=== PATIENT | female | born 1950 | race Caucasian/White ===

== ENCOUNTER 2021-03-10 12:40 | Outpatient (REF) | payer MEDICARE, SELFPAY ==
[2021-03-10 13:40] LABS: MANUAL DIFF FLAG NO
[2021-03-10 13:43] LABS: Basophils Percent Auto 0.5 % (0-2); Eosinophils Absolute Auto 0.2 X10*3/uL (0.0-0.4); Eosinophils Percent Auto 2.4 % (0-4); Hematocrit 42.6 % (37.0-47.0); Hemoglobin 13.1 g/dl (12.0-16.0); Imm Gran Abs Auto 0.04 X10*3/uL (0.00-0.03); Imm Gran Pct Auto 0.5 % (0.0-0.4); Lymphocytes Absolute Auto 2.9 X10*3/uL (1.2-4.9); Lymphocytes Percent Auto 37.6 % (20-40); Mean Corpuscular HGB Conc 30.8 g/dl (31.0-35.0); Mean Corpuscular Hemoglobin 27.3 pg (27.0-33.0); Mean Corpuscular Volume 88.8 fL (80.0-98.0); Mean Platelet Volume 9.2 fL (9.4-12.3); Monocytes Absolute Auto 0.5 X10*3/uL (0.1-1.2); Monocytes Percent Auto 6.7 % (2-11); Neutrophils Percent Auto 52.3 % (45-73); Platelet Count 549 X10*3/uL (160-400); Red Cell Distribution Width 15.9 % (11.0-16.0); White Blood Count 7.6 X10*3/uL (4.8-10.8)
[2021-03-10 14:11] LABS: Alanine Aminotransferase 17 U/L (0-31); Albumin Level 3.8 g/dL (3.5-5.0); Alkaline Phosphatase 67 U/L (39-117); Anion Gap 13 (12-20); Aspartate Amino Transferase 19 U/L (5-31); Bilirubin Total 0.6 mg/dL (0.0-1.0); Blood Urea Nitrogen 21 mg/dL (9-16); Calcium 10.3 mg/dL (8.4-10.2); Carbon Dioxide 24 mmol/L (22-29); Chloride 108 mmol/L (96-108); Estimated Glomerular Filt Rate 32; Glucose Random 106 mg/dL (60-115); Potassium 4.8 mmol/L (3.3-5.1); Sodium 140 mmol/L (135-145)
[2021-03-10 14:25] LABS: Free T4 (Free Thyroxine) 1.13 ng/dL (0.71-1.85); Thyroid Stimulating Hormone 2.34 uIU/mL (0.32-4.0)
== END 2021-03-10 12:41 | disposition home or self-care (01) ==
LOC: HO.10HDL 12:40
PROVIDERS: Visit Provider Internal Medicine
DX: I48.91 Unspecified atrial fibrillation (principal); I10 Essential (primary) hypertension; M19.90 Unspecified osteoarthritis, unspecified site
CPT/HCPCS: 36415; 80053; 83735; 84439; 84443; 85025

== ENCOUNTER → 2021-03-11 14:05 | Day surgery (SDC) | payer MEDICARE, SELFPAY ==
[2021-03-11 14:09] VITALS: BMI 33.0
--- NOTE | 2021-03-11 14:30 | HO.ANESPROP2 ---
HPI - Anesthesia Eval Consult details Narrative: Afib PMFSH Active Problems Active Problems: All Active Problems (Updated 03/11/21 @ 14:23 by Ileana Beasley, RN) Persistent atrial fibrillation (Acute) HTN (hypertension) (Acute) Past Medical History Medical History (Updated 03/11/21 @ 14:23 by Ileana Beasley, HARVEY) Afib HTN (hypertension) Family History Family History Father Cancer Stroke Mother Diabetes Family history of problems with anesthesia: No Surgical History Surgical History History of surgery of uterus Hx of appendectomy Hx of tonsillectomy History of Problems with Anesthesia: No Social History Social History Patient Tobacco Use Status: Never used Tobacco Use of substances other than those prescribed or required for medical reasons: No Are you DNR?: No Advance Directives: No Advance Directives Information Provided: Yes Meds Allergies Allergy/AdvReac Type Severity Reaction Status Date / Time No Known Allergies Allergy Unverified 11/01/19 15:08 Home Medications Medication Instructions Recorded Confirmed Last Taken Type amlodipine 10 mg tablet 10 mg PO DAILY 03/10/21 03/10/21 Unknown History apixaban 5 mg tablet (Eliquis) 5 mg PO BID 03/10/21 03/10/21 Unknown History furosemide 20 mg tablet (Lasix) 20 mg PO DAILY PRN 03/10/21 03/10/21 Unknown History lisinopril 40 mg tablet 40 mg PO DAILY 03/10/21 03/10/21 Unknown History meloxicam 15 mg tablet 15 mg PO DAILY 03/10/21 03/10/21 Unknown History omeprazole 20 mg capsule,delayed 20 mg PO DAILY 03/10/21 03/10/21 Unknown History release Exam Exam Date and Time: March 11, 2021 1430 Height,Weight and Vital Signs: Height 5 ft 7 in Weight 95.708 kg Airway Mallampati Class: II TM Dist: >3cm Neck ROM: Full Loose/Missing/Broken Teeth: Yes (all caps) Heart: irreg irreg s1s2 Lungs: cta b/l Assessment and Plan Assessment Anesthesia Assessment: Anesthesia Plan Discussed and Chart Reviewed Final Anesthetic Review Family History of Problems with Anesthesia: No History of Problems with Anesthesia: No NPO: Yes ASA Class: III Final Preanesthetic Review: No Changes in Pt Med Stat, Meds/Allgs Chart Reviewed, Consent Obtained/Reviewed and Anes Risks/Benef Reviewed Patient Risk: Intermediate Procedure Risk: Intermediate Anesthetic Plan Anesthetic Plan: MAC: and Agree w/ Assess. and Plan Disposition: Standard PACU
--- NOTE | 2021-03-11 14:32 | MHC.SHP ---
Pre-Procedural Eval Section A Date of Service: 03/11/21 The patient is an INPATIENT: No Changes since office visit: Yes Patient answered all questions; No Cold of Flu in the past 2 weeks, No New Medical Problems and No Changes in Medication The History & Physical has been completed within 30 days and I have reviewed it.: Yes Section B Chief Complaint: a-fib Allergies: Allergies Allergy/AdvReac Type Severity Reaction Status Date / Time No Known Allergies Allergy Unverified 11/01/19 15:08 Plan I have reviewed the history and physical and performed a pertinent physical examination on my patient. No changes have occurred unless specified.
[2021-03-11] MEDS: Lactated Ringers 1,000 ML 100 ML IV (14:39)
== END ==
PROVIDERS: PCP Internal Medicine; Visit Provider Internal Medicine Cardiovascular Disease
DX: I48.19 Other persistent atrial fibrillation (principal); Z53.8 Procedure and treatment not carried out for other reasons; I10 Essential (primary) hypertension; Z79.01 Long term (current) use of anticoagulants; Z79.899 Other long term (current) drug therapy

== ENCOUNTER 2021-03-20 14:19 | Outpatient (REF) | payer MEDICARE, SELFPAY ==
[2021-03-20 14:45] LABS: COVID-19 Test Negative (Negative)
== END 2021-03-20 14:20 | disposition home or self-care (01) ==
LOC: HO.LAB 14:19
PROVIDERS: Visit Provider Internal Medicine Cardiovascular Disease
DX: Z20.822 Contact with and (suspected) exposure to COVID-19 (principal); I48.91 Unspecified atrial fibrillation
CPT/HCPCS: 87635

== ENCOUNTER → 2021-04-02 14:00 | Outpatient (BNVA) | payer MEDICARE, SELFPAY | PROVIDERS: PCP Internal Medicine; Referring Provider Internal Medicine; Visit Provider Internal Medicine Cardiovascular Disease | DX: I48.0 Paroxysmal atrial fibrillation (principal); I10 Essential (primary) hypertension; Z79.899 Other long term (current) drug therapy | CPT/HCPCS: 93005; 99212 ==

== ENCOUNTER → 2021-05-22 13:50 | Outpatient (REF) | payer MEDICARE, SELFPAY ==
--- NOTE | 2021-05-22 13:53 | CA_ITS ---
Transthoracic Echocardiogram Patient (Last, First, Middle): Dunia Elliott, Gender: Female Date of : 1950 Age: 71 Procedure Date: 05/22/2021 Procedure Type: Transthoracic Echocardiogram Location: OP Height: 170.18 cm Weight: 96.62 kg BSA: 2.08 m2 Heart Rate: bpm BP: 120 / 76 mmHg Case Operator: CP/TO Referring MD: Aleksandr Muse MD Director Insurance: Aleksandr Muse MD Symptoms: I48.0 - Paroxysmal atrial fibrillation Study Quality: Fair ECG Rhythm: Sinus Conclusions: - 1. Normal LV systolic function with impaired relaxation filling pattern next 2. Normal cardiac valvular Doppler 3. Normal RV systolic pressure 4. No pericardial effusion Findings Left Ventricle Normal left ventricular size, thickness, and systolic function. The visually estimated ejection fraction is between 60-65%. Spectral Doppler is indicative of an impaired relaxation filling pattern. E/E prime ratio is between 8 and 15 consistent with indeterminate filling pressures. Right Ventricle Normal right ventricular cavity size and systolic function. Atria The left atrium is likely dilated. There is no evidence of interatrial shunt. The right atrium is normal in size. Aortic Valve There is mild calcification of the aortic valve. There is no aortic valve stenosis. There is no aortic valve regurgitation. Mitral Valve Normal mitral valve structure and function. There is trace mitral valve regurgitation. There is no mitral valve stenosis. Pulmonic Valve The pulmonic valve was not well visualized. Tricuspid Valve Likely normal tricuspid valve structure and function. There is mild tricuspid valve regurgitation. The right ventricular systolic pressure is normal. The right ventricular systolic pressure is 31 mmHg. Normal right atrial pressure. There is no evidence of pulmonary hypertension. Great Vessels All visible segments of the aorta are normal in size. The pulmonary artery was not well visualized. Venous The inferior vena cava is normal in size and collapses greater than 50% with inspiration. Pericardium/Pleural There is no evidence of pericardial effusion. Prior Study Comparison no previous study in the last 5 years for comparison Measurements 2D Linear Measurements IVSd: 1.00 0.6-0.9/0.6-1.0 cm LVIDd: 4.38 3.9-5.3/4.2-5.9 cm LVIDd Index: 2.11 2.4-3.2/2.2-3.1 cm/m2 LVIDs: 2.79 2.0-3.6 cm LVPWd: 0.94 0.7-1.1 cm LA Diam: 3.80 2.7-3.8/3.0-4.0 cm LAIDs Index: 1.83 1.5-2.3 cm/m2 LV Mass: 175.27 67-162/88-224 g LV Mass Index: 84.26 43-95/49-115 g/m2 LVOT Diam: 2.00 3.0+(-)1.3 cm 2D Systolic Function EF 4C: 60.60 >55% EF 2C: 59.90 >55% EF BiP: 60.10 >55% Mitral Valve MV Pk E: 0.59 MV PK A: 0.77 MV Decel Time: 259.00 E/A: 0.80 E'Lateral: 10.00 E'Medial: 5.87 E/E' Med: 10.10 E/E' Lat: 5.90 PHT: 76.00 MVA PHT: 2.89 Decel Reagan: 2.30 Aortic Valve AoV Pk Todd: 1.36 AoV Mn Todd: 0.98 AoV VTI: 0.34 AoV Pk Grad: 7.00 Aov Mn Grad: 4.00 MADISYN Cont.VTI: 2.65 LVOT LVOT Pk Todd: 1.26 LVOT Mn Todd: 0.80 LVOT VTI: 0.28 LVOT Pk Grad: 6.00 LVOT Mn Grad: 3.00 LVOT Diam: 2.00 LVOT Area: 3.14 Diastolic Function MV Pk E: 0.59 MV Pk A: 0.77 E/A: 0.80 E'Medial: 5.87 E/E' Med: 10.10 E' Laterial: 10.00 E/E' Lat: 5.90 Right Ventricle TAPSE (mm): 23.50 TVS' Todd: 8.81 Tricuspid Valve TR Pk Todd: 2.63 TR Pk Grad: 28.00 RA Press: 3.00 RVSP: 31.00 Great Vessels Aorta Sinus of Valsalva: 3.25 2.0-3.[address] Ridge: 2.52 1.7-3.4 cm Ao Asc: 3.40 2.1-3.4 cm Ao Arch: 3.00 Updated in Other Vendor System with Status of Final Aleksandr Muse MD electronically signed on 05/23/2021 12:34:40 PM with status of Final
== END ==
LOC: HO.CARD 13:50
PROVIDERS: PCP Internal Medicine; Visit Provider Internal Medicine
DX: I48.19 Other persistent atrial fibrillation (principal); I10 Essential (primary) hypertension
CPT/HCPCS: 93306; 99212; Q3014

== ENCOUNTER → 2021-05-25 09:56 | Outpatient (REF) | payer MEDICARE, SELFPAY ==
--- NOTE | ~2021-05-25 | NM_ITS ---
Myocardial perfusion study Indication: Paroxysmal atrial fibrillation to evaluate for myocardial ischemia Technique: The patient was brought in for a Lexiscan perfusion study on 05/25/2021. Patient performed low-level exercise and was injected 0.4 mg of Lexiscan intravenously. Within a minute of injection, 30 mCi of sestamibi was given intravenously. Images were obtained using the SPECT gamma camera interlaced with the gating device. Images were obtained in supine position. Resting perfusion study was performed on 05/26/2021. Patient was administered 30 mCi of sestamibi intravenously at rest. Images were then obtained in supine position. Images obtained with and without CT attenuation. Total DLP 135 mGy-cm. Images were processed with the software and compared side to side in short axis, horizontal long axis and vertical long axis views. Findings: The stress perfusion study showed non attenuated images show minimally reduced uptake in the apex of the LV myocardium. Remainder of the LV myocardium is normally perfused. Attenuation corrected images show moderately reduced uptake in the distal anterior, apex and inferoapical wall of the LV myocardium. Remainder of the LV myocardium is normally perfused. The gated study shows normal LV systolic function with calculated LVEF of 70%. LV cavity is normal size. The gated study shows normal systolic wall thickening and contraction of segments. Resting study shows no change in perfusion pattern compared to stress perfusion study. Gating at rest reveals normal systolic wall motion with ejection fraction at 68%. The findings are consistent with no reversible defect suggestive of ischemia. Overall normal myocardial perfusion. NM/NM cardiolite stress test Impression: 1. Myocardial perfusion imaging study shows normal myocardial perfusion 2. Gated LVEF is 70% 3. Transient ischemic dilatation not present EKG is nondiagnostic for ischemia
--- NOTE | 2021-05-25 09:59 | CA_ITS ---
Acquisition Time: 2021-05-25 10:09:42 Total Exercise Time: 00:02:00 Test Indications: AFIB Medications: SEE CHART Protocol: LEXISCAN Max HR: 103 BPM 68% of Pred: 151 BPM Max BP: 132/084 mmHG Max Work Load: 1.6 METS Pharmacological stress test with Lexiscan injection, while walking on treadmill without anginal symptoms, with isolated PVC, with normotensive response to injection, with nondiagnostic EKG for ischemia. Nuclear images pending. Test reviewed with Dr Combs. Referred By: Allegra Escoto Overread By: ALLEGRA ESCOTO
== END ==
LOC: HO.CARD 09:56
PROVIDERS: PCP Internal Medicine; Visit Provider Internal Medicine Cardiovascular Disease
DX: I48.0 Paroxysmal atrial fibrillation (principal)
CPT/HCPCS: 78452; 93017; A9500; J2785

== ENCOUNTER → 2021-06-09 15:04 | Outpatient (BNVA) | payer MEDICARE, SELFPAY | PROVIDERS: PCP Internal Medicine; Referring Provider Internal Medicine; Visit Provider Internal Medicine Cardiovascular Disease | DX: I48.0 Paroxysmal atrial fibrillation (principal); I10 Essential (primary) hypertension; Z79.899 Other long term (current) drug therapy | CPT/HCPCS: 93005; 99212 ==

== ENCOUNTER 2021-07-15 14:27 | Outpatient (REF) | payer MEDICARE, SELFPAY ==
[2021-07-15 16:37] LABS: MANUAL DIFF FLAG NO
[2021-07-15 16:38] LABS: Basophils Absolute Auto 0.1 X10*3/uL (0.0-0.2); Basophils Percent Auto 0.6 % (0-2); Eosinophils Absolute Auto 0.6 X10*3/uL (0.0-0.4); Eosinophils Percent Auto 6.1 % (0-4); Hematocrit 41.1 % (37.0-47.0); Hemoglobin 12.8 g/dl (12.0-16.0); Imm Gran Abs Auto 0.04 X10*3/uL (0.00-0.03); Imm Gran Pct Auto 0.4 % (0.0-0.4); Lymphocytes Absolute Auto 2.5 X10*3/uL (1.2-4.9); Mean Corpuscular HGB Conc 31.1 g/dl (31.0-35.0); Mean Corpuscular Hemoglobin 26.9 pg (27.0-33.0); Mean Corpuscular Volume 86.5 fL (80.0-98.0); Mean Platelet Volume 9.1 fL (9.4-12.3); Monocytes Absolute Auto 0.6 X10*3/uL (0.1-1.2); Monocytes Percent Auto 6.2 % (2-11); Neutrophils Absolute Auto 5.8 x10*3/uL (2.0-8.3); Neutrophils Percent Auto 60.7 % (45-73); Platelet Count 541 X10*3/uL (160-400); Red Blood Count 4.75 X10*6/uL (4.20-5.50); White Blood Count 9.6 X10*3/uL (4.8-10.8)
== END 2021-07-15 14:28 | disposition home or self-care (01) ==
LOC: HO.HMGCLDS 14:27
PROVIDERS: PCP Internal Medicine; Visit Provider Internal Medicine Cardiovascular Disease
DX: I48.0 Paroxysmal atrial fibrillation (principal)
CPT/HCPCS: 36415; 85025

== ENCOUNTER 2021-07-31 15:08 | Outpatient (REF) | payer MEDICARE, SELFPAY ==
[2021-07-31 16:31] LABS: MANUAL DIFF FLAG NO
[2021-07-31 16:38] LABS: Basophils Percent Auto 0.5 % (0-2); Eosinophils Absolute Auto 0.6 X10*3/uL (0.0-0.4); Eosinophils Percent Auto 6.8 % (0-4); Hematocrit 39.4 % (37.0-47.0); Hemoglobin 12.1 g/dl (12.0-16.0); Imm Gran Abs Auto 0.03 X10*3/uL (0.00-0.03); Imm Gran Pct Auto 0.4 % (0.0-0.4); Lymphocytes Absolute Auto 2.2 X10*3/uL (1.2-4.9); Lymphocytes Percent Auto 27.2 % (20-40); Mean Corpuscular HGB Conc 30.7 g/dl (31.0-35.0); Mean Corpuscular Volume 87.9 fL (80.0-98.0); Mean Platelet Volume 9.4 fL (9.4-12.3); Monocytes Absolute Auto 0.5 X10*3/uL (0.1-1.2); Monocytes Percent Auto 6.4 % (2-11); Neutrophils Absolute Auto 4.8 x10*3/uL (2.0-8.3); Neutrophils Percent Auto 58.7 % (45-73); Platelet Count 523 X10*3/uL (160-400); Red Blood Count 4.48 X10*6/uL (4.20-5.50); Red Cell Distribution Width 16.7 % (11.0-16.0); White Blood Count 8.2 X10*3/uL (4.8-10.8)
[2021-07-31 17:24] LABS: Blood Urea Nitrogen 22 mg/dL (9-16); Estimated Glomerular Filt Rate 44
== END 2021-07-31 15:09 | disposition home or self-care (01) ==
LOC: HO.HMGCLDS 15:08
PROVIDERS: PCP Internal Medicine; Visit Provider Internal Medicine Gastroenterology
DX: K62.5 Hemorrhage of anus and rectum (principal)
CPT/HCPCS: 36415; 82565; 84520; 85025

== ENCOUNTER 2021-08-12 13:42 | Day surgery (SDC) | payer MEDICARE, SELFPAY ==
[2021-08-06 10:14] VITALS: BMI 34.1
[2021-08-06 10:40] VITALS: BMI 33.8
--- NOTE | 2021-08-11 08:49 | P.CONAN_ITS ---
Documented by User: May Vickers NP 08/11/21 08:56 HPI - Anesthesia Eval Consult details Narrative: 71yo F for Colonoscopy Xarelto for afib PMFSH Active Problems Active Problems: All Active Problems (Updated 08/06/21 @ 10:37 by Dunia Hager RN) HTN (hypertension) (Acute) Paroxysmal atrial fibrillation (Acute) Past Medical History Medical History (Updated 08/06/21 @ 10:37 by Dunia Hager RN) GERD (gastroesophageal reflux disease) Hx of Lyme disease Osteopenia Persistent atrial fibrillation Postoperative nausea Family History Family History Father Cancer Stroke Mother Diabetes Family history of problems with anesthesia: No Surgical History Surgical History (Updated 08/06/21 @ 10:37 by Dunia Hager RN) Hx of appendectomy Hx of section Hx of colonoscopy Hx of hysterectomy History of Problems with Anesthesia: No Social History Social History 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 If so, by whom?: No Are you DNR?: No Advance Directives: Yes Advance Directives Information Provided: No Advance Directives on File: Yes Advance Directives Date on File: 03/11/21 Meds Allergies Allergy/AdvReac Type Severity Reaction Status Date / Time No Known Allergies Allergy Verified 08/06/21 10:37 Home Medications Medication Instructions Recorded Confirmed Last Taken Type amlodipine 10 mg tablet 10 mg PO DAILY 03/10/21 08/06/21 08/12/21 History lisinopril 40 mg tablet 40 mg PO DAILY 03/10/21 08/06/21 Unknown History meloxicam 15 mg tablet 15 mg PO DAILY 03/10/21 08/06/21 08/05/21 History omeprazole 20 mg capsule,delayed 20 mg PO DAILY 03/10/21 08/06/21 08/12/21 History release cholecalciferol (vitamin D3) 25 25 mcg PO DAILY 08/06/21 08/06/21 Unknown History mcg (1,000 unit) tablet (Vitamin D3) denosumab 60 mg/mL subcutaneous 60 mg subcut [id number] 08/06/21 08/06/21 Unknown History syringe (Prolia) Exam Exam Date and Time: August 11, 2021 0849 Height,Weight and Vital Signs: Height 5 ft 7 in Weight 97.976 kg Pertinent Lab Results Pertinent Lab Results: Laboratory Tests 03/10/21 07/31/21 07/31/21 12:55 15:22 15:22 WBC 8.2 Hgb 12.1 Hct 39.4 Plt Count 523 H Sodium 140 Potassium 4.8 Chloride 108 Carbon Dioxide 24 BUN 22 H Creatinine 1.22 Narrative Narrative: EKG 05/2021 sinus rhythm with PACs otherwise normal EKG ECHO 05/2021 Conclusions: - 1.? Normal LV systolic function with impaired relaxation ? ? ? filling pattern next 2.? Normal cardiac valvular Doppler ? 3.? Normal RV systolic pressure? 4.? No pericardial effusion? ?? NM cardiolite stress test 05/2021 Impression: ? 1.? Myocardial perfusion imaging study shows normal myocardial perfusion 2.? Gated LVEF is 70% 3. Transient ischemic dilatation not present ? EKG is nondiagnostic for ischemia Assessment and Plan Final Anesthetic Review Family History of Problems with Anesthesia: No History of Problems with Anesthesia: No Documented by User: Laura Louis MD 08/12/21 14:09 [facility] Past Medical History Medical History (Updated 08/06/21 @ 10:37 by Dunia Hager RN) GERD (gastroesophageal reflux disease) Hx of Lyme disease Osteopenia Persistent atrial fibrillation Postoperative nausea Family History Family History Father Cancer Stroke Mother Diabetes Surgical History Surgical History (Updated 08/06/21 @ 10:37 by Dunia Hager RN) Hx of appendectomy Hx of section Hx of colonoscopy Hx of hysterectomy Social History Social History 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 If so, by whom?: No Are you DNR?: No Advance Directives: Yes Advance Directives Information Provided: No Advance Directives on File: Yes Advance Directives Date on File: 03/11/21 Meds Allergies Allergy/AdvReac Type Severity Reaction Status Date / Time No Known Allergies Allergy Verified 08/06/21 10:37 Home Medications Medication Instructions Recorded Confirmed Last Taken Type amlodipine 10 mg tablet 10 mg PO DAILY 03/10/21 08/06/21 08/12/21 History lisinopril 40 mg tablet 40 mg PO DAILY 03/10/21 08/06/21 Unknown History meloxicam 15 mg tablet 15 mg PO DAILY 03/10/21 08/06/21 08/05/21 History omeprazole 20 mg capsule,delayed 20 mg PO DAILY 03/10/21 08/06/21 08/12/21 History release cholecalciferol (vitamin D3) 25 25 mcg PO DAILY 08/06/21 08/06/21 Unknown History mcg (1,000 unit) tablet (Vitamin D3) denosumab 60 mg/mL subcutaneous 60 mg subcut [id number] 08/06/21 08/06/21 Unknown History syringe (Prolia) Exam Airway Mallampati Class: II ( Caps) TM Dist: >3cm Neck ROM: Full Heart: rrr Lungs: cta Assessment and Plan Assessment Anesthesia Assessment: Anesthesia Plan Discussed and Chart Reviewed Final Anesthetic Review NPO: Yes ASA Class: III Final Preanesthetic Review: No Changes in Pt Med Stat, Meds/Allgs Chart Reviewed and Consent Obtained/Reviewed Patient Risk: Intermediate Procedure Risk: Intermediate Anesthetic Plan Anesthetic Plan: MAC: Disposition: Standard PACU
[2021-08-12 13:45] VITALS: BP 166/83; PULSE 68; RESP 17; TEMP 36.8; O2SAT 98
[2021-08-12] MEDS: Lactated Ringers 1,000 ML 100 ML IVCONT (14:04)
--- NOTE | 2021-08-12 14:39 | MHC.SHP ---
Pre-Procedural Eval Section A Date of Service: 08/12/21 The patient is an INPATIENT: No Changes since office visit: No Cold of Flu in the past 2 weeks, No New Medical Problems, No Changes in Medication and No Patient answered all questions The History & Physical has been completed within 30 days and I have reviewed it.: Yes Section B Chief Complaint: hemorrhage Allergies: Allergies Allergy/AdvReac Type Severity Reaction Status Date / Time No Known Allergies Allergy Verified 08/06/21 10:37 Plan I have reviewed the history and physical and performed a pertinent physical examination on my patient. No changes have occurred unless specified.
--- NOTE | 2021-08-12 15:03 | P.BOP_ITS ---
Brief Operative Note Date of Service: 08/12/21 Pre-op diagnosis: rectal bleeding Post-op diagnosis: same (colitis) Procedure: colonoscopy Surgeon: Simone Craig Anesthesia: MAC Was an Loan Documents Closer used for this Procedure?: No Estimated blood loss (mL): 2 Pathology: other (sigmoid bxs) Condition: stable Disposition: PACU
[2021-08-12 15:07] VITALS: BP 90/54; PULSE 67; RESP 20; TEMP 36.5; O2SAT 98
--- NOTE | 2021-08-13 10:13 | OP_ITS ---
SURGEON: Simone Craig MD INDICATIONS: Rectal bleeding. PREOPERATIVE DIAGNOSIS: POSTOPERATIVE DIAGNOSIS: PROCEDURE PERFORMED: Colonoscopy to the terminal ileum with biopsy. ESTIMATED BLOOD LOSS: COMPLICATIONS: ANESTHESIA: ASSISTANTS: SPECIMENS: MEDICATIONS: Monitored anesthesia care. DESCRIPTION OF PROCEDURE: History and physical performed. The risks and benefits of the procedure were explained to the patient. Informed consent was obtained. The patient was placed in the left lateral decubitus position. A digital rectal exam was performed and was found to be normal. The Olympus pediatric video colonoscope was introduced into the rectum and advanced to the cecum without difficulty. The cecum was identified by transillumination, palpation, and identification of the ileocecal valve. Examination was performed. The scope was removed. She tolerated the procedure well and was taken to recovery area in stable condition. FINDINGS: The terminal ileum was examined and appeared normal. The visualized colonic mucosa was normal. There was some liquid stool clogging the suction port on the colonoscope. The mucosa which was washed and suctioned. There appeared to be resolving colitis between 30 and 10 cm with focal areas of erythema, edema, and loss of vascular pattern. There was no ulceration. There was sigmoid diverticulosis. Retroflexed examination showed internal hemorrhoids and external hemorrhoids were noted on withdrawal of the colonoscope. IMPRESSION: Colitis, resolving. RECOMMENDATION: Follow up the biopsy results. 10 yr screening colonoscopy MD SPENCER Lin/[facility] / [id number] MTDD
== END 2021-08-12 15:57 | disposition home or self-care (01) ==
PROVIDERS: PCP Internal Medicine; Visit Provider Internal Medicine Gastroenterology
PROC: 0DJD8ZZ Inspection of Lower Intestinal Tract, Via Natural or Artificial Opening Endoscopic (ICD-10-PCS; CPT 45378; principal; 2021-08-12 14:30)
DX: K62.5 Hemorrhage of anus and rectum (principal); K52.89 Other specified noninfective gastroenteritis and colitis; K57.30 Diverticulosis of large intestine without perforation or abscess without bleeding; K64.8 Other hemorrhoids; K64.4 Residual hemorrhoidal skin tags; K21.9 Gastro-esophageal reflux disease without esophagitis; I10 Essential (primary) hypertension; M85.80 Other specified disorders of bone density and structure, unspecified site; I48.91 Unspecified atrial fibrillation; Z79.01 Long term (current) use of anticoagulants; Z79.899 Other long term (current) drug therapy; Z90.710 Acquired absence of both cervix and uterus; Z86.19 Personal history of other infectious and parasitic diseases; Z85.42 Personal history of malignant neoplasm of other parts of uterus
CPT/HCPCS: 45380; 88305

== ENCOUNTER 2021-10-15 13:41 | Outpatient (REF) | payer MEDICARE, SELFPAY ==
--- NOTE | ~2021-10-15 | XR_ITS ---
EXAMINATION: XR RIBS, RIGHT CLINICAL INFORMATION: Right-sided rib pain COMPARISON: Comparison chest x-ray 2014. TECHNIQUE: 3 views of the right ribs and single chest x-ray were obtained. FINDINGS: There is an offset of the right fifth rib appearing suspicious for an acute fracture. Older fracture deformities at the sixth and seventh ribs are observed. No airspace consolidation, vascular congestion, or pneumothorax seen. XR/XR ribs RT min 3V w CXR1V IMPRESSION: Findings suspicious for right fifth rib acute fracture. Older fracture deformities of the right sixth and seventh ribs. No pneumothorax observed.
== END 2021-10-15 13:42 | disposition home or self-care (01) ==
LOC: HO.HMGCX 13:41
PROVIDERS: PCP Internal Medicine; Visit Provider Internal Medicine
DX: R07.81 Pleurodynia (principal); Z91.81 History of falling
CPT/HCPCS: 71101

== ENCOUNTER 2022-01-25 13:42 | Outpatient (REF) | payer MEDICARE, SELFPAY ==
--- NOTE | ~2022-01-25 | MM_ITS ---
EXAMINATION: MM SCREENING DIGITAL BREAST TOMOSYNTHESIS, BILATERAL CLINICAL INFORMATION: Screening. Asymptomatic. The lifetime risk of breast cancer based on the Tyrer-Cuzick Model is 4%. COMPARISON: Mammography: 08/15/2018, 10/14/2016, 07/05/2014 TECHNIQUE: Digital breast tomosynthesis is performed in both the craniocaudal and mediolateral oblique views along with computer-aided detection (CAD). Synthesized 2D images are generated from the tomosynthesis. FINDINGS: The breasts are almost entirely fatty (ACR BI-RADS breast composition Category a). Background stromal and fibroglandular densities are stable. No developing density or interval mass or architectural abnormality. No abnormal calcifications. The axilla and skin contours are unremarkable. No significant changes. MM/MM tomosynthesis screening BI IMPRESSION: No mammographic evidence of malignancy. ASSESSMENT: BI-RADS 1: Negative RECOMMENDATION: Routine annual mammography screening. This patient's information was entered into a reminder system with a target due date for their next mammogram.
== END 2022-01-25 13:43 | disposition home or self-care (01) ==
LOC: HO.MAMMO 13:42
PROVIDERS: PCP Internal Medicine; Visit Provider Internal Medicine
DX: Z12.31 Encounter for screening mammogram for malignant neoplasm of breast (principal)
CPT/HCPCS: 77063; 77067

== ENCOUNTER → 2022-01-27 14:28 | Outpatient (BNVA) | payer MEDICARE, SELFPAY | PROVIDERS: PCP Internal Medicine; Referring Provider Internal Medicine; Visit Provider Internal Medicine Cardiovascular Disease | DX: I48.0 Paroxysmal atrial fibrillation (principal); I10 Essential (primary) hypertension | CPT/HCPCS: 99212 ==

== ENCOUNTER 2022-02-10 15:11 | Outpatient (REF) | payer MEDICARE, SELFPAY ==
[2022-02-10 15:57] LABS: Influenza A PCR POSITIVE (Negative); Influenza B PCR NEGATIVE (Negative); Resp Syncy Virus RNA Qual PCR NEGATIVE (Negative); SARS COV2 PCR INHOUSE NEGATIVE (Negative)
== END 2022-02-10 15:12 | disposition home or self-care (01) ==
LOC: HO.LNP 15:11
PROVIDERS: Visit Provider Internal Medicine
DX: Z20.822 Contact with and (suspected) exposure to COVID-19 (principal); R05.9 Cough, unspecified; R50.9 Fever, unspecified
CPT/HCPCS: 0241U

== ENCOUNTER 2022-03-12 09:42 | Outpatient (REF) | payer MEDICARE, SELFPAY ==
[2022-03-12 11:14] LABS: MANUAL DIFF FLAG NO
[2022-03-12 11:25] LABS: Basophils Absolute Auto 0.1 X10*3/uL (0.0-0.2); Basophils Percent Auto 0.7 % (0-2); Eosinophils Absolute Auto 0.2 X10*3/uL (0.0-0.4); Eosinophils Percent Auto 2.3 % (0-4); Hematocrit 44.2 % (37.0-47.0); Hemoglobin 13.5 g/dl (12.0-16.0); Imm Gran Abs Auto 0.04 X10*3/uL (0.00-0.03); Imm Gran Pct Auto 0.5 % (0.0-0.4); Lymphocytes Absolute Auto 2.9 X10*3/uL (1.2-4.9); Lymphocytes Percent Auto 33.7 % (20-40); Mean Corpuscular HGB Conc 30.5 g/dl (31.0-35.0); Mean Corpuscular Hemoglobin 25.5 pg (27.0-33.0); Mean Corpuscular Volume 83.4 fL (80.0-98.0); Mean Platelet Volume 8.8 fL (9.4-12.3); Monocytes Absolute Auto 0.5 X10*3/uL (0.1-1.2); Monocytes Percent Auto 6.2 % (2-11); Neutrophils Absolute Auto 4.8 x10*3/uL (2.0-8.3); Neutrophils Percent Auto 56.6 % (45-73); Platelet Count 575 X10*3/uL (160-400); Red Cell Distribution Width 16.6 % (11.0-16.0); White Blood Count 8.5 X10*3/uL (4.8-10.8)
[2022-03-12 11:56] LABS: Alanine Aminotransferase 12 U/L (0-31); Albumin Level 3.9 g/dL (3.5-5.0); Alkaline Phosphatase 58 U/L (39-117); Anion Gap 12 (12-20); Aspartate Amino Transferase 14 U/L (5-31); Bilirubin Total 0.9 mg/dL (0.0-1.0); Blood Urea Nitrogen 21 mg/dL (9-16); Calcium 9.9 mg/dL (8.4-10.2); Carbon Dioxide 26 mmol/L (22-29); Chloride 104 mmol/L (96-108); Cholesterol 218 mg/dL; Estimated Glomerular Filt Rate 45; Glucose Fasting 106 mg/dL (60-99); HDL Cholesterol 67 mg/dL; LDL Cholesterol Calculated 137 mg/dl; Potassium 4.3 mmol/L (3.3-5.1); Sodium 138 mmol/L (135-145); Triglycerides 70 mg/dL
[2022-03-12 11:58] LABS: Free T4 (Free Thyroxine) 1.22 ng/dL (0.71-1.85); Thyroid Stimulating Hormone 2.33 uIU/mL (0.32-4.0); Vitamin D 25-OH Total 17.7 ng/mL (>30)
== END 2022-03-12 09:43 | disposition home or self-care (01) ==
LOC: HO.HMGCLDS 09:42
PROVIDERS: Visit Provider Internal Medicine
DX: Z00.00 Encounter for general adult medical examination without abnormal findings (principal); E03.9 Hypothyroidism, unspecified
CPT/HCPCS: 36415; 80053; 80061; 82306; 84439; 84443; 85025

== ENCOUNTER → 2022-03-22 12:58 | Outpatient (REF) | payer MEDICARE, SELFPAY ==
--- NOTE | 2022-03-22 13:02 | HM_ITS ---
Conclusion: 1. Patient was monitored for total period of 2 days and 20 hours 2. Baseline was normal sinus rhythm with average heart of 64 beats per minute 3. Frequent sinus bradycardia, 35% of time heart rate below 60 beats per minute 4. No significant pauses noted 5. Total of 6866 PACs accounting for 3.5% total beats account for frequent PACs 6. Frequent short runs of SVT, longest lasting 23 beats and the fastest at 226 beats per minute 7. No patient reported events MTDD
== END ==
LOC: HO.CARD 12:58
PROVIDERS: PCP Internal Medicine; Visit Provider Internal Medicine Cardiovascular Disease
DX: I48.0 Paroxysmal atrial fibrillation (principal)
CPT/HCPCS: 93242

== ENCOUNTER 2022-06-16 14:40 | Outpatient (REF) | payer MEDICARE, SELFPAY ==
--- NOTE | ~2022-06-16 | XR_ITS ---
EXAMINATION: XR SHOULDER, LEFT CLINICAL INFORMATION: Left shoulder pain, rule out osteoarthritis. COMPARISON: None available. TECHNIQUE: Three views of the left shoulder. FINDINGS: Alignment is anatomic. Mild degenerative spurring in the inferior glenohumeral joint and across the acromioclavicular joint. No fracture or suspicious lesion. The visible left lung is clear. 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
[2022-06-16 16:22] LABS: MANUAL DIFF FLAG NO
[2022-06-16 16:38] LABS: Basophils Absolute Auto 0.1 X10*3/uL (0.0-0.2); Basophils Percent Auto 0.6 % (0-2); Eosinophils Absolute Auto 0.1 X10*3/uL (0.0-0.4); Eosinophils Percent Auto 1.3 % (0-4); Hematocrit 44.2 % (37.0-47.0); Hemoglobin 13.6 g/dl (12.0-16.0); Imm Gran Abs Auto 0.03 X10*3/uL (0.00-0.03); Imm Gran Pct Auto 0.3 % (0.0-0.4); Lymphocytes Absolute Auto 2.7 X10*3/uL (1.2-4.9); Lymphocytes Percent Auto 29.9 % (20-40); Mean Corpuscular HGB Conc 30.8 g/dl (31.0-35.0); Mean Corpuscular Hemoglobin 26.6 pg (27.0-33.0); Mean Corpuscular Volume 86.3 fL (80.0-98.0); Mean Platelet Volume 9.1 fL (9.4-12.3); Monocytes Absolute Auto 0.6 X10*3/uL (0.1-1.2); Monocytes Percent Auto 6.3 % (2-11); Neutrophils Absolute Auto 5.5 x10*3/uL (2.0-8.3); Neutrophils Percent Auto 61.6 % (45-73); Platelet Count 554 X10*3/uL (160-400); Red Blood Count 5.12 X10*6/uL (4.20-5.50); Red Cell Distribution Width 16.8 % (11.0-16.0); White Blood Count 8.9 X10*3/uL (4.8-10.8)
[2022-06-16 17:06] LABS: Anion Gap 12 (12-20); Blood Urea Nitrogen 19 mg/dL (9-16); C Reactive Protein 0.31 mg/dL (< or = 0.50); Calcium 10.4 mg/dL (8.4-10.2); Carbon Dioxide 26 mmol/L (22-29); Chloride 106 mmol/L (96-108); Estimated Glomerular Filt Rate 50; Glucose Random 102 mg/dL (60-115); Potassium 4.7 mmol/L (3.3-5.1); Sodium 139 mmol/L (135-145)
[2022-06-16 17:22] LABS: Erythrocyte Sedimentation Rate 6 MM/HR (0-20)
[2022-06-16 17:31] LABS: Free T4 (Free Thyroxine) 1.15 ng/dL (0.71-1.85); Thyroid Stimulating Hormone 1.64 uIU/mL (0.32-4.0); Vitamin B12 311 pg/mL (200-900); Vitamin D 25-OH Total 17.8 ng/mL (>30)
[2022-06-17 08:39] LABS: Lyme Abs Screen <0.90 index
== END 2022-06-16 14:41 | disposition home or self-care (01) ==
LOC: HO.HMGCX 14:40
PROVIDERS: PCP Internal Medicine; Visit Provider Internal Medicine
DX: M25.512 Pain in left shoulder (principal); I10 Essential (primary) hypertension; K21.9 Gastro-esophageal reflux disease without esophagitis; R53.83 Other fatigue; E55.9 Vitamin D deficiency, unspecified
CPT/HCPCS: 36415; 73030; 80048; 82306; 82550; 82607; 84439; 84443; 85025; 85652; 86140; 86617; 86618

== ENCOUNTER → 2022-08-03 13:45 | Outpatient (BNVA) | payer MEDICARE, SELFPAY | PROVIDERS: PCP Internal Medicine; Referring Provider Internal Medicine; Visit Provider Internal Medicine Cardiovascular Disease | DX: I48.0 Paroxysmal atrial fibrillation (principal); I10 Essential (primary) hypertension; Z79.01 Long term (current) use of anticoagulants; Z79.899 Other long term (current) drug therapy | CPT/HCPCS: 93005; 99212 ==

== ENCOUNTER 2022-08-09 13:45 | Outpatient (REF) | payer MEDICARE, SELFPAY ==
--- NOTE | ~2022-08-09 | MR_ITS ---
EXAMINATION: MR SHOULDER WITHOUT CONTRAST, LEFT CLINICAL INFORMATION: Left shoulder pain. Difficulty lifting. Decreased range of motion. Evaluate for a rotator cuff tendon tear. COMPARISON: Left shoulder radiographs dated 06/16/2022. TECHNIQUE: Multisequence MR imaging of the left shoulder was obtained without contrast on a high-field strength scanner. FINDINGS: ROTATOR CUFF: Full-thickness partial tear involving the majority of the supraspinatus tendon measuring up to 2.8 x 3.4 cm (AP by ML) with the torn tendon fibers retracted proximal to the humeral head apex. Thin bursal surface posterior tendon fibers remain intact. Mild infraspinatus and subscapularis tendinosis. Mild supraspinatus muscle atrophy. BICEPS: Intact. CORACOACROMIAL ARCH: The undersurface of the acromion is curved with small subacromial spurs. Moderate acromioclavicular osteoarthritis and small joint effusion. LABRUM/CAPSULE: No labral tear. Intact inferior joint capsule. GLENOHUMERAL JOINT/MARROW: Mild articular cartilage signal heterogeneity with tiny marginal osteophytes. Small glenohumeral joint effusion. No acute osseous injury. MR/MR shoulder LT wo con IMPRESSION: 1. Full-thickness partial tear involving the majority of the supraspinatus tendon measuring 2.8 x 3.4 cm (AP x ML) with a thin posterior bursal surface tendon fibers remaining intact. The torn tendon fibers are retracted proximal to the humeral head apex. Mild supraspinatus muscle atrophy. 2. Mild infraspinatus and subscapularis tendinosis. 3. Moderate acromioclavicular osteoarthritis and small joint effusion with small subacromial spurs. 4. Mild glenohumeral osteoarthritis and small joint effusion.
== END 2022-08-09 13:46 | disposition home or self-care (01) ==
LOC: HO.MRI 13:45
PROVIDERS: PCP Internal Medicine; Visit Provider Internal Medicine
DX: M25.512 Pain in left shoulder (principal)
CPT/HCPCS: 73221

== ENCOUNTER 2022-08-23 12:01 | Outpatient (AMB) | payer MEDICARE, SELFPAY ==
[2022-08-23 12:02] VITALS: BMI 34.8
--- NOTE | 2022-08-23 12:02 | MHC.OFFVIS ---
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 MRI done at [facility]. Patient reports that she moved in November and cares for her who falls frequently. Denies injury. Hx of injections at the arthritis center that only provide about 2 weeks of relief. Pain with increased activity, ROM, particularly above the head movements. She also complains of right knee pain. 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 She has pain with daily activity, worse with overhead activity and at night. She has difficulty lifting her arm above shoulder level. She stays active at home caring for her , who falls frequently, and recently had to pack her house and moved, which caused her more pain. She says her is now in a mcfp. She denies any falls or know injury. She has a hx of short-term relief from steroid injections at an outside clinic in the past. She has afib. She takes Tylenol for pain relief, and 15mg of Meloxicam due to her heart issues. She was last injected ~3 weeks ago and says her pain has returned. She also complains of right knee pain. She has knee OA and is limited in her ability to walk without pain. She had relief from a steroid injection in the past. [facility] Medical History GERD (gastroesophageal reflux disease) HTN (hypertension) Hx of Lyme disease Osteopenia Paroxysmal atrial fibrillation Persistent atrial fibrillation Postoperative nausea Surgical History Hx of appendectomy Hx of section Hx of colonoscopy Hx of hysterectomy Family History Father Cancer Stroke Mother Diabetes Social History Are you a primary healthcare analyst to a significant other at home: Yes ( with Alzheimer's and Parkinson's) Do you presently have visiting nurse or other home services: Yes Patient Tobacco Use Status: Never used Tobacco Advance Directives Date on File: 03/11/21 Review of Systems Const All systems reviewed & are unremarkable except as noted in HPI and below Physical Exam Vital Signs: BMI result Body Mass Index 34.8 Const General: no acute distress, alert and awake Orientation/consciousness: patient oriented x3 HEENT Head: Yes normocephalic and Yes atraumatic Eyes EOM: EOMs intact bilaterally Resp Effort & Inspection: normal respiratory effort and able to speak in complete sentences Cardio Jugular venous distension: no JVD Skin General skin exam: turgor normal Rashes: no rashes Neuro General: patient oriented x3 Extrem Other: Left Shoulder: 4/5 strength with empty can testing 90/120/30/S1 Right Knee: ~15-20 degree valgus deformity Lateral compartment TTP Psych Appearance: grossly normal Affect: normal affect Attitude: cooperative Office Procedures Joint Injection/Drain Joint Injection/Drain Details: Injected 1 mL of Decadron and 3 mL 1% lidocaine and 3 mL of 0.25% Marcaine. Site was prepped using aseptic technique. Patient tolerated the procedure well. Primary Site: left shoulder Coding 48733 - Large joint Procedure code (CPT) selection complete Results Reviewed Results Reviewed: 08/23/22 12:42 Lidocaine HCl 2 % MPF [Xylocaine 2 % MPF] 5 ml .ROUTE .STK-MED ONE dexAMETHasone sod phosphate [Decadron] 4 mg .ROUTE .STK-MED ONE I personally reviewed relevant 1. Full-thickness partial tear involving the majority of the supraspinatus tendon measuring 2.8 x 3.4 cm (AP x ML) with a thin posterior bursal surface tendon fibers remaining intact. The torn tendon fibers are retracted proximal to the humeral head apex. Mild supraspinatus muscle atrophy. ? 2. Mild infraspinatus and subscapularis tendinosis. ? 3. Moderate acromioclavicular osteoarthritis and small joint effusion with small subacromial spurs. ? 4. Mild glenohumeral osteoarthritis and small joint effusion. Assessment & Plan Assessment & Plan (1) Left rotator cuff tear arthropathy: Code(s): M75.102 - Unspecified rotator cuff tear or rupture of left shoulder, not specified as traumatic; M12.812 - Other specific arthropathies, not elsewhere classified, left shoulder Plan: This is a 72 year old woman with a chronic left supraspinatus tendon tear, with retraction & atrophy. She has pain with daily activity, worse with overhead activity and at night, and she remains fairly active at home caring for her . She has a hx of short-term relief from steroid injections in the past. I discussed her diagnosis and treatment options. She leads an active life and is caring for her in a mcfp. I think surgical repair of this rotator cuff would likely be very difficult and not successful. There is already atrophy and I suspect this has progressed to arthropathy. I think activity modification and physical therapy would be more helpful. She may benefit from a reverse TSA in the future, but I think that would be too aggressive at this time. I recommend PT for christen-scapular strengthening and she limit or avoid any heavy lifting or overhead activity. I injected her right shoulder today, which she tolerated well, and discussed christen-scapular strengthening exercises she will perform at-home. She will follow up in 3 months. (2) Valgus deformity, not elsewhere classified, right knee: Code(s): M21.061 - Valgus deformity, not elsewhere classified, right knee Plan: Dunia has a severe valgus deformity of her right knee. This makes daily activities difficult and I do think at some point she will benefit from a knee replacement. I do not think that point is now given what she has going on in her life. I discussed this with her. Should return to see me in 3 months. Plan Scribed for Lamin Ellison MD by Jacques Interiano, medical services coordinator, on 08/23/22 at 12:30 PM, EST. Coding Level of Care Code New Pt Level 4 (12018) Diagnoses Left rotator cuff tear arthropathy M75.102; M12.812 Valgus deformity, not elsewhere classified, right knee M21.061 CPT Codes Coding - 83618 Large joint: 89311 - Large joint ([id number])
== END 2022-08-23 13:19 | disposition home or self-care (01) ==
PROVIDERS: PCP Internal Medicine; Visit Provider Orthopaedic Surgery
DX: M75.102 Unspecified rotator cuff tear or rupture of left shoulder, not specified as traumatic (principal); M12.812 Other specific arthropathies, not elsewhere classified, left shoulder; M21.061 Valgus deformity, not elsewhere classified, right knee
CPT/HCPCS: 20610; 99204

== ENCOUNTER → 2022-08-23 12:01 | Outpatient (BNVA) | payer MEDICARE, SELFPAY | PROVIDERS: PCP Internal Medicine; Visit Provider Orthopaedic Surgery | DX: M75.102 Unspecified rotator cuff tear or rupture of left shoulder, not specified as traumatic (principal); M12.812 Other specific arthropathies, not elsewhere classified, left shoulder; M21.061 Valgus deformity, not elsewhere classified, right knee; M85.80 Other specified disorders of bone density and structure, unspecified site; I48.0 Paroxysmal atrial fibrillation; I48.19 Other persistent atrial fibrillation | CPT/HCPCS: 20610; 99202; J1100 ==

== ENCOUNTER 2023-06-17 13:20 | Outpatient (REF) | payer MEDICARE, SELFPAY | END 2023-06-17 13:21 | disposition home or self-care (01) | LOC: HO.MAMMO 13:20 | PROVIDERS: PCP Internal Medicine; Visit Provider Internal Medicine | DX: Z12.31 Encounter for screening mammogram for malignant neoplasm of breast (principal) | CPT/HCPCS: 77063; 77067 ==

== ENCOUNTER → 2023-06-17 13:30 | Outpatient (BNV) | payer MEDICARE, SELFPAY | PROVIDERS: PCP Internal Medicine; Visit Provider Radiology Diagnostic Radiology | DX: Z12.31 Encounter for screening mammogram for malignant neoplasm of breast (principal) | CPT/HCPCS: 77063; 77067 ==

== ENCOUNTER 2023-07-06 10:48 | Outpatient (AMB) | payer MEDICARE, SELFPAY ==
[2023-07-06 10:55] VITALS: BP 124/78; PULSE 58; BMI 35.6
--- NOTE | 2023-07-06 10:55 | A.OFFVIS_ITS ---
Vital Signs 07/06/23 10:55 Height 5 ft 7 in Weight 227 lb 1.218 oz BMI 35.6 BP 124/78 Blood Pressure Location Lt brachial Position Sitting Pulse 58 Intake Visit Reasons: Rt knee replacement/6-/ clearance Intake Note: Follow-up with ekg right knee replacement 07/18 at [facility] Lead Required: No Allergies diphenhydramine Adverse Reaction (Verified 08/23/22 12:11) Anxiety Medication List - Last Reconciled 07/06/23 by Aleksandr Muse MD amlodipine 10 mg PO DAILY celecoxib (Celebrex) 200 mg PO DAILY cholecalciferol (vitamin D3) (Vitamin D3) 25 mcg PO DAILY denosumab (Prolia) 60 mg subcut [id number] lisinopril 40 mg PO DAILY metoprolol succinate ER 25 mg PO DAILY omeprazole 20 mg PO DAILY rivaroxaban (Xarelto) 20 mg PO DAILY HPI Comments Details: Dunia comes for follow-up. He is scheduled to undergo right knee replacement surgery in near future due to significant limitations activity level. She says whenever she exercise she feels fatigued and short of breath and she thinks this time for her to pursue knee replacement surgery to improve her functionality. She denies any exertional chest pain. She denies any episodes of atrial fibrillation. She says a blood pressures been adequately controlled. She denies any prolonged irregular heartbeat or palpitations. No bleeding issues or neurologic events. Takes all her medications regularly. [facility] Medical History Postoperative nausea Osteopenia Hx of Lyme disease GERD (gastroesophageal reflux disease) Paroxysmal atrial fibrillation HTN (hypertension) Persistent atrial fibrillation Surgical History Hx of section Hx of hysterectomy Hx of colonoscopy Hx of appendectomy Family History Father Cancer Stroke Mother Diabetes Social History Are you a primary post acute care nurse practitioner to a significant other at home: Yes ( with Alzheimer's and Parkinson's) Do you presently have visiting nurse or other home services: Yes Patient Tobacco Use Status: Never used Tobacco Advance Directives Date on File: 03/11/21 Review of Systems Const Denies chills, Denies fatigue, Denies fever(s), Denies frequent falls, Denies weakness, Denies weight gain and Denies weight loss ENT Denies dizziness Card Denies chest pain, Denies leg edema, Denies lightheadedness, Denies palpitations, Denies dyspnea, Denies dyspnea on exertion, Denies orthopnea and Denies other (loss of consciousness) Resp Denies cough, Denies dyspnea and Denies dyspnea on exertion GI Denies hematochezia and Denies change in stool character Musc Denies abnormal gait, Denies muscle weakness, Denies numbness, Denies radiating pain into limb and Denies tingling Neuro Denies Abnormal speech present, Denies abnormal gait, Denies dizziness, Denies frequent falls, Denies numbness, Denies tingling and Denies weakness Endo Denies fatigue and Denies palpitations Physical Exam Vital Signs: Last Vital Signs Pulse 58 07/06/23 10:55 BP 124/78 07/06/23 10:55 BMI result Body Mass Index 35.6 Const General: cooperative, comfortable, no acute distress, alert, awake and anxious Nutritional Appearance: obese Orientation/consciousness: patient oriented x3 Limitations: no limitations Neck Neck: Yes trachea midline, Yes supple and Yes no JVD Chest Chest palpation & inspection: normal inspection of the chest Resp Effort & Inspection: normal respiratory effort Auscultation: clear to auscultation bilaterally Cardio Jugular venous distension: no JVD Rate: tachycardic Rhythm: abnormal rhythm irregularly irregular Heart sounds: S1 normal heart sound present, S2 normal heart sound present, no click, no gallops and no murmurs GI Auscultation: normal bowel sounds Skin General skin exam: no rashes or lesions noted Neuro General: patient oriented x3 and no focal motor deficits Speech: No Abnormal speech present Extrem General: Yes no clubbing, cyanosis or edema Psych Appearance: grossly normal Affect: Anxious affect present Office Procedures EKG Details: EKG shows sinus bradycardia 58 beats per minute [id number], Complete Assessment & Plan Assessment & Plan (1) Preoperative cardiovascular examination: Code(s): Z01.810 - Encounter for preprocedural cardiovascular examination Category: Medical Plan: Preoperative cardiovascular risk stratification this elderly woman with limited exercise capacity to undergo intermediate risk surgery in near future. Suggest vasodilating myocardial perfusion imaging to further risk stratify from cardiac perspective. If this is within normal limits it will be low risk for perioperative cardiovascular morbidity mortality. This was discussed with her. I will continue all her medications in the perioperative period including amlodipine, metoprolol. Lisinopril was particularly advised for her to be held on the day of surgery. A Xarelto can be withheld for 3 days prior to the surgery but resumed as soon as possible after surgery at surgeon's discretion with associated risk for thromboembolic complication. (2) Paroxysmal atrial fibrillation: Code(s): I48.0 - Paroxysmal atrial fibrillation Category: Medical Plan: Highly symptomatic paroxysmal atrial fibrillation which has done with well with rhythm control approach. Continue rhythm control approach. She is done well with metoprolol therapy. Continue the same. No indication for antiarrhythmic drug therapy. Continue full oral anticoagulation, currently on Xarelto 20 mg daily. Semi annual renal function test should be pursued. (3) HTN (hypertension): Code(s): I10 - Essential (primary) hypertension Category: Medical Plan: Hypertension which is currently well optimized advised to monitor blood pressure at home and maintain a log. Goal blood pressure less than 130/84. Continue current antihypertensive therapy. Low-salt diet was discussed. I think continued participate in weight loss program as well as regular physical activity will help with management of blood pressure in the future and reduce risk of cardiovascular outcomes. Will follow up in the clinic in 1 year's time, sooner p.r.n.. Thank you for allowing me to partake in the care Orders: Orders CA lexiscan stress w jadiel Today Z01.810 - Encounter for preprocedural cardiovascular examination Coding Level of Care Code Est Pt Level 4 (14685) Diagnoses Preoperative cardiovascular examination Z01.810 Paroxysmal atrial fibrillation I48.0 HTN (hypertension) I10 CPT Codes EKG - CPT: 83679-[id number], Complete ([id number])
== END 2023-07-06 11:30 | disposition home or self-care (01) ==
PROVIDERS: PCP Internal Medicine; Visit Provider Internal Medicine Cardiovascular Disease
DX: I48.0 Paroxysmal atrial fibrillation (principal); I10 Essential (primary) hypertension; Z01.810 Encounter for preprocedural cardiovascular examination
CPT/HCPCS: 93010; 99214

== ENCOUNTER → 2023-07-06 10:48 | Outpatient (BNVA) | payer MEDICARE, SELFPAY | PROVIDERS: PCP Internal Medicine; Visit Provider Internal Medicine Cardiovascular Disease | DX: Z01.810 Encounter for preprocedural cardiovascular examination (principal); I48.0 Paroxysmal atrial fibrillation; I10 Essential (primary) hypertension | CPT/HCPCS: 93005; 99212 ==

== ENCOUNTER → 2023-07-07 08:55 | Outpatient (REF) | payer MEDICARE, SELFPAY ==
--- NOTE | ~2023-07-07 | NM_ITS ---
Lexiscan Myocardial perfusion study Indication: Preoperative cardiac vascular evaluation Technique: The patient was brought in for a Lexiscan perfusion study on 07/07/2023 and was injected 0.4 mg of Lexiscan intravenously. Within a minute of this injection 35 mCi of sestamibi was given intravenously. Images were obtained using the SPECT gamma camera interlaced with the gating device. Images were obtained in supine position. Resting perfusion study was performed on 07/08/2023. Patient was administered 35 mCi of sestamibi intravenously at rest. Images were then obtained in supine position. Images were processed with the software and compared side to side in short axis, horizontal long axis and vertical long axis views. Total DLP 182mGy-cm. Findings: Raw acquisition reviewed. Arms by the patient's side. The stress perfusion study showed no significant perfusion abnormality. Both uncorrected as well as CT attenuation corrected images were reviewed.. The gated study shows normal LV systolic function with calculated LVEF of 46%, but visually appears normal. LV cavity is normal in size. The gated study shows normal wall thickening and contraction of segments. Resting study shows no significant perfusion abnormality. Gating at rest reveals normal wall motion with ejection fraction at 66%. The findings are consistent with no clear reversible or fixed perfusion abnormality. NM/NM jadiel perf SPECT rest & str Impression: 1. Myocardial perfusion imaging study shows normal myocardial perfusion. 2. Gated LVEF is 46% during stress, but visually appears normal. 66% during rest. 3. Transient ischemic dilatation not present. EKG component of the test reported separately.
--- NOTE | 2023-07-07 08:57 | CA_ITS ---
Acquisition Time: 2023-07-07 09:39:06 Total Exercise Time: 00:02:00 Test Indications: AFIB Medications: SEE H Protocol: LEXISCAN Max HR: 106 BPM 71% of Pred: 149 BPM Max BP: 150/084 mmHG Max Work Load: 1.0 METS Pharmacological stress test with Lexiscan injection while sitting and kicking her legs, without anginal symptoms, with isolated PVCs, with normotensive response to injection, with nondiagnoisitic EKGs. Nuclear images pending. Test reviewed with Dr. Combs. Referred By: Aleksandr Muse Overread By: Twyla Raymond
== END ==
LOC: HO.CARD 08:55
PROVIDERS: PCP Internal Medicine; Visit Provider Internal Medicine Cardiovascular Disease
DX: Z01.810 Encounter for preprocedural cardiovascular examination (principal)
CPT/HCPCS: 78452; 93017; A9500; J0280; J2785

== ENCOUNTER → 2023-07-07 08:57 | Outpatient (BNV) | payer MEDICARE, SELFPAY | PROVIDERS: PCP Internal Medicine; Visit Provider Nurse Practitioner | DX: Z01.810 Encounter for preprocedural cardiovascular examination (principal) | CPT/HCPCS: 78452; 93016; 93018 ==

== ENCOUNTER 2023-10-25 10:45 | Outpatient (AMB) | payer MEDICARE, SELFPAY ==
--- NOTE | 2023-10-25 10:46 | A.OFFVIS_ITS ---
Vital Signs 10/25/23 10:47 Height 5 ft 7 in Weight 222 lb 10.67 oz BMI 34.9 BP 120/80 Blood Pressure Location Lt brachial Position Sitting Pulse 66 Intake Visit Reasons: f/u afib Intake Note: Follow-up ? for Dr Muse regarding med's xarelto ? watchman Plaster Machine Operator Required: No Allergies diphenhydramine Adverse Reaction (Verified 08/23/22 12:11) Anxiety Medication List - Last Reconciled 10/25/23 by Aleksandr Muse MD amlodipine 10 mg PO DAILY cholecalciferol (vitamin D3) (Vitamin D3) 25 mcg PO DAILY hydroxyurea 500 mg PO BID lisinopril 40 mg PO DAILY metoprolol succinate ER 25 mg PO DAILY omeprazole 20 mg PO DAILY prochlorperazine maleate (Compazine) 5 mg PO BID PRN rivaroxaban (Xarelto) 20 mg PO DAILY sertraline (Zoloft) 50 mg PO DAILY HPI Comments Details: Dunia comes for urgent follow-up visit as she was recently diagnose with thrombocytosis, currently on hydroxyurea therapy. She has responded well to that. She underwent a myocardial perfusion imaging prior to needing a knee surgery in July which was within normal limits. She continues to exertional shortness of breath. She is very anxious about this new hematologic condition. Her knee surgery was rescheduled for November. She is not having any chest pain syndrome. No recurrent atrial fibrillation episodes. She questions about oral anticoagulation use especially with her hematologic condition and whether to consider Watchman device. [facility] Medical History Postoperative nausea Osteopenia Hx of Lyme disease GERD (gastroesophageal reflux disease) Paroxysmal atrial fibrillation HTN (hypertension) Persistent atrial fibrillation Surgical History Hx of section Hx of hysterectomy Hx of colonoscopy Hx of appendectomy Family History Father Cancer Stroke Mother Diabetes Social History Are you a primary pet care technician to a significant other at home: Yes ( with Alzheimer's and Parkinson's) Do you presently have visiting nurse or other home services: Yes Patient Tobacco Use Status: Never used Tobacco Advance Directives Date on File: 03/11/21 Review of Systems Const Denies chills, Denies fatigue, Denies fever(s), Denies frequent falls, Denies weakness, Denies weight gain and Denies weight loss ENT Denies dizziness Card Denies chest pain, Denies leg edema, Denies lightheadedness, Denies palpitations, Denies dyspnea, Denies dyspnea on exertion, Denies orthopnea and Denies other (loss of consciousness) Resp Denies cough, Denies dyspnea and Denies dyspnea on exertion GI Denies hematochezia and Denies change in stool character Musc Denies abnormal gait, Denies muscle weakness, Denies numbness, Denies radiating pain into limb and Denies tingling Neuro Denies Abnormal speech present, Denies abnormal gait, Denies dizziness, Denies frequent falls, Denies numbness, Denies tingling and Denies weakness Endo Denies fatigue and Denies palpitations Physical Exam Vital Signs: Last Vital Signs Pulse 66 10/25/23 10:47 BP 120/80 10/25/23 10:47 BMI result Body Mass Index 34.9 Const General: cooperative, comfortable, no acute distress, alert, awake and anxious Nutritional Appearance: obese Orientation/consciousness: patient oriented x3 Limitations: no limitations Neck Neck: Yes trachea midline, Yes supple and Yes no JVD Chest Chest palpation & inspection: normal inspection of the chest Resp Effort & Inspection: normal respiratory effort Auscultation: clear to auscultation bilaterally Cardio Jugular venous distension: no JVD Rate: tachycardic Rhythm: abnormal rhythm irregularly irregular Heart sounds: S1 normal heart sound present, S2 normal heart sound present, no click, no gallops and no murmurs GI Auscultation: normal bowel sounds Skin General skin exam: no rashes or lesions noted Neuro General: patient oriented x3 and no focal motor deficits Speech: No Abnormal speech present Extrem General: Yes no clubbing, cyanosis or edema Psych Appearance: grossly normal Affect: Anxious affect present Assessment & Plan Assessment & Plan (1) Preoperative cardiovascular examination: Code(s): Z01.810 - Encounter for preprocedural cardiovascular examination Category: Medical Plan: Preoperative cardiovascular risk stratification with recent myocardial perfusion imaging within normal limits with prior risk factors of age, hypertension, atrial fibrillation. Atrial fibrillation remained suppressed on metoprolol therapy. She has done well with it. Currently she is optimized to undergo surgery with low to intermediate risk for perioperative cardiovascular morbidity mortality. Xarelto can be withheld 3 days prior to the procedure and resumed as soon as possible after the procedure. Replace blood volume as soon as possible. (2) Paroxysmal atrial fibrillation: Code(s): I48.0 - Paroxysmal atrial fibrillation Category: Medical Plan: Paroxysmal atrial fibrillation, currently suppressed with metoprolol therapy. No clinical recurrence. Continue participate in stress mitigation strategies. Avoidance of stimulants was discussed. Risk of recurrent thromboembolic complication was discussed and her Hematology condition only increases her risk for thrombotic complication. Advised to continue Xarelto therapy. Watchman is not indicated for her. (3) HTN (hypertension): Code(s): I10 - Essential (primary) hypertension Category: Medical Plan: Hypertension which is currently well optimized advised to monitor blood pressure at home maintain a log. Goal blood pressure less than 130/84. Continue lisinopril amlodipine and metoprolol therapy. Low-salt diet was discussed. Advised to continue to participate in regular physical activity and weight loss program. Will follow up in the clinic in 9 months time, sooner p.r.n.. Thank you for allowing me to partake in his care Coding Level of Care Code Est Pt Level 4 (53782) Diagnoses Preoperative cardiovascular examination Z01.810 Paroxysmal atrial fibrillation I48.0 HTN (hypertension) I10
[2023-10-25 10:47] VITALS: BP 120/80; PULSE 66; BMI 34.9
== END 2023-10-25 11:26 | disposition home or self-care (01) ==
PROVIDERS: PCP Internal Medicine; Visit Provider Internal Medicine Cardiovascular Disease
DX: Z01.810 Encounter for preprocedural cardiovascular examination (principal); I48.0 Paroxysmal atrial fibrillation; I10 Essential (primary) hypertension
CPT/HCPCS: 99214

== ENCOUNTER → 2023-10-25 10:45 | Outpatient (BNVA) | payer MEDICARE, SELFPAY | PROVIDERS: PCP Internal Medicine; Visit Provider Internal Medicine Cardiovascular Disease | DX: Z01.810 Encounter for preprocedural cardiovascular examination (principal); I48.0 Paroxysmal atrial fibrillation; I10 Essential (primary) hypertension | CPT/HCPCS: 99212 ==

== ENCOUNTER 2024-02-27 14:17 | Outpatient (REF) | payer MEDICARE, SELFPAY ==
[2024-02-27 16:08] LABS: MANUAL DIFF FLAG NO
[2024-02-27 16:12] LABS: Urine Cytology See Pathology rpt
[2024-02-27 16:18] LABS: Appearance Urine Cloudy; Color Urine DK YELLOW; Glucose Urine UA 100 mg/dL (Negative); Leukocyte Esterase Urine Small (1+) (Negative); Nitrite Urine Positive (Negative); PH 5.5 (5.0-9.0); Specific Gravity - Urine >= 1.030 (1.005-1.025); UMIC TRIGGER UA YES; Urine Blood Negative (Negative); Urine Ketones 15 mg/dL (Negative); Urine Protein 100 (2+) mg/dL (Neg-Trace)
[2024-02-27 16:20] LABS: Basophils Percent Auto 0.4 % (0-2); Eosinophils Absolute Auto 0.1 X10*3/uL (0.0-0.4); Hematocrit 35.9 % (37.0-47.0); Hemoglobin 11.9 g/dl (12.0-16.0); Imm Gran Abs Auto 0.02 X10*3/uL (0.00-0.03); Imm Gran Pct Auto 0.3 % (0.0-0.4); Lymphocytes Absolute Auto 2.5 X10*3/uL (1.2-4.9); Lymphocytes Percent Auto 36.8 % (20-40); Mean Corpuscular HGB Conc 33.1 g/dl (31.0-35.0); Mean Corpuscular Hemoglobin 35.6 pg (27.0-33.0); Mean Corpuscular Volume 107.5 fL (80.0-98.0); Mean Platelet Volume 9.4 fL (9.4-12.3); Monocytes Absolute Auto 0.5 X10*3/uL (0.1-1.2); Monocytes Percent Auto 7.4 % (2-11); Neutrophils Absolute Auto 3.7 x10*3/uL (2.0-8.3); Neutrophils Percent Auto 54.1 % (45-73); Platelet Count 271 X10*3/uL (160-400); Red Blood Count 3.34 X10*6/uL (4.20-5.50); Red Cell Distribution Width 14.8 % (11.0-16.0); White Blood Count 6.8 X10*3/uL (4.8-10.8)
[2024-02-27 16:39] LABS: Bacteria Urine 2+ (None Seen); Calcium Oxalate Crystals Urine Present; Hyaline Casts Urine 0-2 /LPF (0-2); RBC Urine 0-2 /HPF (0-2)
--- OUTSIDE RECORDS SUMMARY | 2024-02-27 18:03 | XMS_ITS ---
Author Organization [facility] Address [address] [place] [address] Care Team Providers Care Zyglo Inspector Name Role Phone Ross Moran MD Primary Care Provider Emerson Blandon Unavailable [phone] Allergies Allergen (clinical drug ingredient) Drug/Non Drug Allergy documented on EMR Reaction Allergy Type Onset Date Status diphenhydramine Diphenhydramine anxiety Drug Allergy Active oxycodone Oxycodone nausea Drug Allergy Active Medications Medication SIG (Take, Route, Frequency, Duration) Notes Start Date End Date Status Magnesium 300 MG 1 capsule with a roberto l Orally Once a day for 30 day(s) Not-Taking Walking Boot/Pneumatic As directed Wear Daily for Until further notice 12/27/2016 Not-Gallito ing Work Note . . . patient must be cast immobilized and rest with minimal weight-bearing to heal for several weeks Not-Taking Gabapentin 400 MG 1 capsule Orally Onc e a day hs for 30 day(s) Not-Taking Meloxicam 5 MG Orally Once a day Not-Taking amLODIPine Besylate 2.5 MG 1 tablet Orally Once a day for 30 day(s) Active Xarelto 20 MG TAKE 1 TABLET BY EVONNE TH EVERY DAY Oral for 30 Days Active Lisinopril 5 MG 0.5 tablet Orally On ce a day for 30 day(s) Active Omeprazole 20 MG 1 capsule Orally Onc e a day for 30 day(s) Active Furosemide 8 MG/ML Orally Once a day Not-Taking Prolia Active Metoprolol Succinate ER 25 MG TAKE 1 TABLET (25 MG) ORALLY DAILY Oral for 90 Days Active Social History Tobacco Use: [...] 09/12/2023 Encounters Encounter Location Date Provider Diagnosis [facility] [address] [place] [address] 09/12/2023 Emerson Mcbride Plan Of Treatment No Information Progress Notes * EARLTasneem RICHARDricia LDOB:[birth year] (74 yo F)Acc No.[id number]:09/12/2023 Progress Notes Patient:?Dunia ELLIOTT Provider:?Emerson Mcbride DPM :1950???Age:73 Y???Sex:Female D ate:09/12/2023 Address:[address] [place], [place] [id number] Pcp:Ross Moran MD Subjective: * Chief Complaints: * ??? * ROS:?General/Constitutional:?Nausea?denies.?Vomiting?denies.?Hunger Thirst?denies.?Loss appetite?denies.?Chills?denies.?Fatigue?denies.?Fever?denies.?Night Sweats?denies.?Unexplained weight loss?denies.?Unexplained weight gain?denies.?HEENTM:?Dentures?denies.?Dizziness?denies.?Glasses/contacts?admits.?Retinopathy?de nies.?Blurred/double vision?denies.?TMJ?denies.?Discharge/drainage?denies.?Implants?denies.?Sore throat?denies.?Dental implants?denies.?Hard of hearing ?denies.?Difficulty chewing/swallowing/speaking?denies.?Nose bleeds?denies.?Sore mouth?denies.?Respiratory:?On Oxygen?denies.?Pneumonia/pleurisy?denies.?Bronchitis?denies.?Emphysema?denies.?C oughing?denies.?Cough blood?denies.?Shortness of breath?denies.?Wheezing?denies.?Cardiovascular:?Pacemaker?denies.?MVP?denies.?WPW?denies.?CHF?denies.?Heart attack?denies.?Septal defect?denies.?Rapid beat?denies.?Chest pain ?denies.?Atrial Fib.?admits.?Murmur/Palpitations?denies.?Gastrointestinal:?Hemorrhoids?denies.?Stomach/Abdominal pain?denies.?Dark blood stool?denies.?Irritable bowel ?denies.?Constipation?denies.?Diarrhea?denies.?Hematology:?Swelling?denies.?Clots?denies.?Varicose Veins?denies.?Bruising?denies.?Bleeding problem?denies.?Genitourinary:?Blood urine?denies.?Frequent/Painfu/urination/bladder control?denies.?Kidney stones?denies.?Infection (UTI)?denies.?Nephropathy?denies.?sex trans dis (STD)?denies.?Prostate?denies.?Musculoskeletal:?Hammertoes?admits.?Bunions?admits.?Back Pain?denies.?Muscle Cramps/ Resting?admits.?Muscle cramps / walking?denies.?Generalized aches and pains?admits.?Weakness?denies.?Integ.:?Bain?denies.?Scars?denies.?Corns/calluses?denies.?Ingrown nails?denies.?Painful nails?denies.?Open Sores?denies.?Rashes?denies.?Neurologic:?Difficulty sleeping?admits.?Brain disorder?denies.?Numbness?denies.?Balance trouble?denies.?Confusion?denies.?Fainting/blackouts?denies.?Tingling?denies.?Tr emors?denies.? 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 * Surgical History:?hysterecto my 2009, vascular surgery 1999, xrays L ap/lat/lo 07/05/19, appendectomy 1976, pcls - twins 1978. * Family History:?Mother: dece ased, foot problems, diagnosed with Family history of arthritis, Diabetic - NIDDM, Unspecified essential hypertension.?Father: , diagnosed with Unspecified essential hypertension, Other malignant neoplasm of unspecified site.? * Social History:?Tobacco Use:?Tobacco Use/Smoking?Are you a:?nonsmoker ?Additional Findings: Tobacco Non-User?Current non-smoker ?Tobacco use other than smoking?Are you an other tobacco user??No ???Drugs/Alcohol:?Drugs?Have you used drugs other than those for medical reasons in the past 12 months??No ?Alcohol Screen?Did you have a drink containing alcohol in the past year??No ?Points?0 ?Interpretation?Negative ???Miscellaneous:?Caffeine: yes, 1-2 cups per day. ?Children: yes, 3. ?Marital status: . 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 * Medications:?Taking Prolia , Taking Metoprolol Succinate ER 25 [...] 1 capsule Orally Once a day , Not-Taking/PRN Furosemide 8 MG/ML Solution Orally Once a [...] a meal Orally Once a day * Allergies:?Diphenhydramine: anxiety, Oxycodone: nausea. Objective: * Vitals:?Ht: 5 ft 7 in, Wt: 2 16, BMI:33.83, Shoe size: 9-9.5. Assessment: Plan: * Treatment: * Images: * The named appointment provid er may or may not be the originator of this progress note, and it is not deemed complete until electronically signed by the appointment provider. Sign off status: Pending * Provider:?Emerson Mcbride DPM Date:? 024 Generated for Yodit mullen/Sim/Perry on:?02/27/2024 06:02 PM EST
--- OUTSIDE RECORDS SUMMARY | 2024-02-27 18:03 | XMS_ITS ---
Author [facility] Address [address] [facility] [place] [address] Care Team Providers Care Rand Butter Name Role Phone Ross Moran MD Primary Care Provider Emerson Blandon Unavailable [phone] Allergies Allergen (clinical drug ingredient) Drug/Non Drug Allergy documented on EMR Reaction Allergy Type Onset Date Status diphenhydramine Diphenhydramine anxiety Drug Allergy Active oxycodone Oxycodone nausea Drug Allergy Active Medications Medication SIG (Take, Route, Frequency, Duration) Notes Start Date End Date Status Gabapentin 400 MG 1 capsule Orally Onc e a day hs for 30 day(s) Unknown Work Note . . . patient must be cast immobilized and rest with minimal weight-bearing to heal for several weeks Unknown Walking Boot/Pneumatic As directed Wear Daily for Until further notice 12/27/2016 Unknown Meloxicam 5 MG Orally Once a day Unknown Furosemide 8 MG/ML Orally Once a day Unknown Xarelto 20 MG TAKE 1 TABLET BY EVONNE TH EVERY DAY Oral for 30 Days Activ e amLODIPine Besylate 2.5 MG 1 tablet Orally Once a day for 30 day(s) Active Metoprolol Succinate ER 25 MG TAKE 1 TABLET (25 MG) ORALLY DAILY Oral for 90 Days Active Omeprazole 20 MG 1 capsule Orally Onc e a day for 30 day(s) Active Lisinopril 5 MG 0.5 tablet Orally On ce a day for 30 day(s) Active Prolia Active Magnesium 300 MG 1 capsule with a roberto l Orally Once a day for 30 day(s) Unknown Social History Tobacco Use: [...] 06/08/2023 Encounters Encounter Location Date [facility] [address] [place] [address] 06/08/2023 Emerson Mcbride Plan Of Treatment No Information Progress Notes * Dunia ELLIOTT LDOB:[birth year] (74 yo F)Acc No.[id number]:06/08/2023 Progress Notes Patient:?Dunia ELLIOTT Provider:?Emerson Mcbride DPM :1950???Age:73 Y???Sex:Female D ate:06/08/2023 Address:[address] [place], [place] [id number] Pcp:Ross Moran MD Subjective: * Chief Complaints: [...] ?Children: yes, 3. ?Marital status: . 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 * Medications:?Taking Prolia , Taking Metoprolol Succinate [...] weight-bearing to heal for several weeks , Unknown Gabapentin 400 MG Capsule 1 capsule Orally Once a day hs , Unknown Magnesium 300 MG Capsule 1 capsule with a meal Orally Once a day * Allergies:?Diphenhydramine: anxiety, Oxycodone: nausea. Objective: * Vitals:?Ht: 5 ft 7 in, Wt:21 6, BMI:33.83, Shoe size: 9-9.5, Ht-cm: 170.18 cm, Wt-k.98 kg. Assessment: Plan: * Treatment: * Images: * The named appointment provid er may or may not be the originator of this progress note, and it is not deemed complete until electronically signed by the appointment provider. Sign off status: Pending * Provider:?Emerson Mcbride DPM Date:? 024 Generated for Yodit mullen/Sim/Perry on:?02/27/2024 06:03 PM EST
--- OUTSIDE RECORDS SUMMARY | 2024-02-27 18:03 | XMS_ITS ---
Author Organization [facility] Address [address] [place] [address] Care Team Providers Care Postie Name Role Phone Ross Moran MD Primary Care Provider Emerson Blandon [phone] REASON FOR VISIT cx ON 09/11 Encounters Encounter Location Date Provider Diagnosis [facility] [address] [place] [address] 09/08/2023 Emerson Mcbride Plan Of Treatment No Information Progress Notes * Dunia ELLIOTT LDOB:[birth year] (73 yo F)Acc No.[id number]:09/08/2023 Patient:?Tasneem Elliottgrupo Simental :1950???Age:73 Y???Sex:Female Address:[address] [place] [address], [place] [address] * true * Date:? Generated for Roldani sebas/Sim/eTransmitting on:?02/27/2024 06:03 PM EST
--- OUTSIDE RECORDS SUMMARY | 2024-02-27 18:03 | XMS_ITS | Clinical Summary ---
Author Organization Unknown Care Team Providers Care Tool Radial Drill Press Set Up Operator Name Role Phone KWABENA BELTRE, STUART Unavailable Nii VIDAL PT, KATRINA Unavailable Unavailable CONSTANTINE CORADO, SHELLEY Unavailable Unavailable Payers Payer Name Policy Type Policy Number Effective Date Expira tion Date MEDICARE.NGS.PDGM [id number] Problems Condition Name Condition Details Condition Category Status Onset Date Resolution Date Last Treatment Date Treating Clinician Comments AFTERCARE FOLLOWING JOINT REPLACEMENT SURGERY Active 2023-02 00:00: 00 ESSENTIAL (PRIMARY) HYPERTENSION Active 2023-02 00:00: 00 PAROXYSMAL ATRIAL FIBRILLATION Active 2023-02 00:00: 00 GASTRO-ESOPH AGEAL REFLUX DISEASE WITHOUT ESOPHAGITIS Active 2023-02 00:00: 00 HYPERLIPIDEM IA, UNSPECIFIED Active 2023-02 00:00: 00 PRESENCE OF RIGHT ARTIFICIAL KNEE JOINT Active 2023-02 00:00: 00 Allergies, Adverse Reactions, Alerts Allergy Name Allergy Type Status Severity Reaction(s) Onset Date Inactive Date Treating Clinician Comments OXYCODONE Propensity to adverse reactions Active 2023-02 15:12: 17 DIPHENHYDRAM INE Propensity to adverse reactions Active 2023-02 15:12: 28 Medications Ordered Medication Name Filled Medication Name Start Date Stop Date Current Medication? Ordering Clinician Indication Dosage Frequency Signature (SIG) Comments Components Xarelto 20 mg tablet 2023-02 00:00: 00 Yes [id number] BLOOD THINNER 1 tablet DAILY 1 tablet DAILY (route: oral) Med Classific ation: Hematolog ical Agents prochlorper azine maleate 5 mg tablet 2023-02 0 00:00: 00 Yes [id number] NAUSEA Per instruc tions EVERY 6 HOURS NEEDED Per instructio ns EVERY 6 HOURS NEEDED (route: oral) Med Classific ation: Gastroint estinal Therapy Agents sertraline 50 mg tablet 2023-02 0-04 00:00: 00 Yes [id number] DEPRESSION 1 tablet DAILY 1 tablet DAILY (route: oral) Med Classific ation: Central Nervous System Agents amlodipine 10 mg tablet 2023-02 00:00: 00 Yes [id number] BP 1 tablet DAILY 1 tablet DAILY (route: oral) Med Classific ation: Cardiovas cular Therapy Agents Colace 100 mg capsule 2023-02 00:00: 00 Yes [id number] BOWEL 1 capsule DAILY 1 capsule DAILY (route: oral) Med Classific ation: Gastroint estinal Therapy Agents Dilaudid 2 mg tablet 2023-02 00:00: 00 Yes [id number] PAIN 1 tablet EVERY 4 HOURS 1 tablet EVERY 4 HOURS (route: oral) Med Classific ation: Analgesic , Anti-infl ammatory or Antipyret ic lisinopril 20 mg tablet 2023-02 00:00: 00 12-13 14:28 :30.0 53 No [id number] BP 1 tablet DAILY 1 tablet DAILY (route: oral) Med Classific ation: Cardiovas cular Therapy Agents metoprolol succinate ER 25 mg tablet,exte nded release 24 hr 2023-02 00:00: 00 Yes [id number] BP 1 tablet DAILY 1 tablet DAILY (route: oral) Med Classific ation: Cardiovas cular Therapy Agents tramadol 50 mg tablet 2023-02 00:00: 00 Yes [id number] PAIN 1 tablet EVERY 6 HOURS 1 tablet EVERY 6 HOURS (route: oral) Med Classific ation: Analgesic , Anti-infl ammatory or Antipyret ic Tylenol Extra Strength 500 mg tablet 2023-02 00:00: 00 Yes [id number] PAIN 1-2 tablet EVERY 6 HOURS 1-2 tablet EVERY 6 HOURS (route: oral) Med Classific ation: Analgesic , Anti-infl ammatory or Antipyret ic lisinopril 40 mg tablet 2023-02 00:00: 00 Yes [id number] HYPERTENSIO N 1 tablet DAILY 1 tablet DAILY (route: oral) Med Classific ation: Cardiovas cular Therapy Agents omeprazole 20 mg tablet,phu yed release 2023-02 00:00: 00 Yes [id number] GERD 1 tablet DAILY 1 tablet DAILY (route: oral) Med Classific ation: Gastroint estinal Therapy Agents temazepam 15 mg capsule 2023-02 00:00: 00 Yes [id number] SLEEP 1 capsule DAILY 1 capsule DAILY (route: oral) Med Classific ation: Central Nervous System Agents Vital Signs Vital Name Observation Time Observation Value Commen ts Temperature 2023-12-26 10:58:00.000 98 [degF] Temperature 2023-12-21 11:03:00.000 98.2 [degF] Temperature 2023-12-19 15:54:00.000 98 [degF] Temperature 2023-12-15 16:02:00.000 97.8 [degF] Temperature 2023-12-13 15:30:00.000 97.9 [degF] Temperature 2023-12-12 15:09:00.000 97.9 [degF] Temperature 2023-12-10 11:19:00.000 98.1 [degF] BMI (%) 2023-12-10 11:19:00.000 34 kg/m2 Height 2023-12-10 11:19:00.000 66 [in_us] Pulse 2023-12-26 10:58:00.000 70 /min Pulse 2023-12-21 11:03:00.000 69 /min Pulse 2023-12-19 15:54:00.000 68 /min Pulse 2023-12-15 16:02:00.000 65 /min Pulse 2023-12-13 15:30:00.000 65 /min Pulse 2023-12-12 15:09:00.000 60 /min Pulse 2023-12-10 11:19:00.000 74 /min O2 Saturation (%) 2023-12-26 10:59:00.000 98 % O2 Saturation (%) 2023-12-21 11:04:00.000 97 % Respirations 2023-12-26 10:58:00.000 18 /min Respirations 2023-12-21 11:03:00.000 18 /min Respirations 2023-12-19 15:54:00.000 18 /min Respirations 2023-12-15 16:02:00.000 18 /min Respirations 2023-12-13 15:30:00.000 18 /min Respirations 2023-12-12 15:09:00.000 18 /min Respirations 2023-12-10 11:19:00.000 18 /min Weight (lbs) 2023-12-10 11:19:00.000 215 [lb_av] Systolic Blood Pressure 2023-12-26 10:58:00.000 138 mm [Hg] Systolic Blood Pressure 2023-12-21 11:03:00.000 132 mm [Hg] Systolic Blood Pressure 2023-12-19 15:54:00.000 136 mm [Hg] Systolic Blood Pressure 2023-12-15 16:02:00.000 140 mm [Hg] Systolic Blood Pressure 2023-12-13 15:30:00.000 122 mm [Hg] Systolic Blood Pressure 2023-12-12 15:09:00.000 160 mm [Hg] Systolic Blood Pressure 2023-12-10 11:19:00.000 134 mm [Hg] Diastolic Blood Pressure 2023-12-26 10:58:00.000 80 mm [Hg] Diastolic Blood Pressure 2023-12-21 11:03:00.000 86 mm [Hg] Diastolic Blood Pressure 2023-12-19 15:54:00.000 86 mm [Hg] Diastolic Blood Pressure 2023-12-15 16:02:00.000 88 mm [Hg] Diastolic Blood Pressure 2023-12-13 15:30:00.000 68 mm [Hg] Diastolic Blood Pressure 2023-12-12 15:09:00.000 90 mm [Hg] Diastolic Blood Pressure 2023-12-10 11:19:00.000 68 mm [Hg] Plan of Treatment Planned Activity Planned Date Details Comments Future Scheduled Test PT/ELECTROCARDIOGRAPH TECHNICIAN TO PROVIDE GAIT TRAINING FOR IMPROVED MOBILITY AND /OR TO NORMALIZE GAIT PATTERN [code = PT/ELECTROCARDIOGRAPH TECHNICIAN TO PROVIDE GAIT TRAINING FOR IMPROVED MOBILITY AND /OR TO NORMALIZE GAIT PATTERN] Future Scheduled Test THERAPEUTI C EXERCISES AND ESTABLISHING A HOME EXERCISE PROGRAM (PT/ELECTROCARDIOGRAPH TECHNICIAN) [code = THERAPEUTIC EXERCISES AND ESTABLISHING A HOME EXERCISE PROGRAM (PT/ELECTROCARDIOGRAPH TECHNICIAN)] Future Scheduled Test PT/ELECTROCARDIOGRAPH TECHNICIAN TO IDENTIFY FALL RISK FACTORS; EDUCATE THE PATIENT/CAREGIVER ON WAYS TO REDUCE FALL RISK FACTORS AND ESTABLISH HOME EXERCISE PROGRAM TO MINIMIZE FALL RISK. MAY TEACH THE PATIENT FLOOR RECOVERY WHEN CLINICALLY APPROPRIATE [code = PT/ELECTROCARDIOGRAPH TECHNICIAN TO IDENTIFY FALL RISK FACTORS; EDUCATE THE PATIENT/CAREGIVER ON WAYS TO REDUCE FALL RISK FACTORS AND ESTABLISH HOME EXERCISE PROGRAM TO MINIMIZE FALL RISK. MAY TEACH THE PATIENT FLOOR RECOVERY WHEN CLINICALLY APPROPRIATE] Future Scheduled Test PT/ELECTROCARDIOGRAPH TECHNICIAN TO PROVIDE STAIR TRAINING [code = PT/ELECTROCARDIOGRAPH TECHNICIAN TO PROVIDE STAIR TRAINING] Future Scheduled Test BED TRANSF ERS (PT/ELECTROCARDIOGRAPH TECHNICIAN) [code = BED TRANSFERS (PT/ELECTROCARDIOGRAPH TECHNICIAN)] Future Scheduled Test SIT TO/FRO M STAND TRANSFERS (PT/ELECTROCARDIOGRAPH TECHNICIAN) [code = SIT TO/FROM STAND TRANSFERS (PT/ELECTROCARDIOGRAPH TECHNICIAN)] Future Scheduled Test PT / ELECTROCARDIOGRAPH TECHNICIAN T O MONITOR AND EDUCATE ON OXYGEN SATURATION DURING ADLS/IADLS, NOTIFY PHYSICIAN AND/OR THE RN CLINICAL OIL PIPELINE DISPATCHER FOR PHYSICIAN NOTIFICATION AND IF O2 SATS BELOW PHYSICIAN ORDERED PARAMETERS AFTER 10 MIN OF REST [code = PT / ELECTROCARDIOGRAPH TECHNICIAN TO MONITOR AND EDUCATE ON OXYGEN SATURATION DURING ADLS/IADLS, NOTIFY PHYSICIAN AND/OR THE RN CLINICAL OIL PIPELINE DISPATCHER FOR PHYSICIAN NOTIFICATION AND IF O2 SATS BELOW PHYSICIAN ORDERED PARAMETERS AFTER 10 MIN OF REST] Future Scheduled Test PT / ELECTROCARDIOGRAPH TECHNICIAN M AY EDUCATE ON PAIN MANAGEMENT CLINICALLY INDICATED, INCLUDING NON-PHARMACOLOGICAL PAIN REDUCTION TECHNIQUES. [code = PT / ELECTROCARDIOGRAPH TECHNICIAN MAY EDUCATE ON PAIN MANAGEMENT CLINICALLY INDICATED, INCLUDING NON-PHARMACOLOGICAL PAIN REDUCTION TECHNIQUES.] Future Scheduled Test AGENCY MAY PERFORM A RESUMPTION OF CARE VISIT FOLLOWING ANY HOSPITAL ADMISSION. PT TO EVALUATE, OBSERVE / ASSESS, AND MONITOR, ELECTROCARDIOGRAPH TECHNICIAN TO OBSERVE AND MONITOR, PROVIDE SKILLED THERAPEUTIC INTERVENTION, ACTIVITY, EDUCATION, AND TRAINING TO ADDRESS; [code = AGENCY MAY PERFORM A RESUMPTION OF CARE VISIT FOLLOWING ANY HOSPITAL ADMISSION. PT TO EVALUATE, OBSERVE / ASSESS, AND MONITOR, ELECTROCARDIOGRAPH TECHNICIAN TO OBSERVE AND MONITOR, PROVIDE SKILLED THERAPEUTIC INTERVENTION, ACTIVITY, EDUCATION, AND TRAINING TO ADDRESS;] Future Scheduled Test PT/ELECTROCARDIOGRAPH TECHNICIAN TO TEACH KNEE REPLACEMENT SELF-MANAGEMENT [code = PT/ELECTROCARDIOGRAPH TECHNICIAN TO TEACH KNEE REPLACEMENT SELF-MANAGEMENT] Future Scheduled Test PT / ELECTROCARDIOGRAPH TECHNICIAN T O OBSERVE WOUND/INCISION AND/OR INTACT DRESSING ON R KNEE AND REPORT EARLY SIGNS AND SYMPTOMS OF WOUND DETERIORATION, COMPLICATIONS, OR INFECTION TO PHYSICIAN AND/OR THE RN CLINICAL OIL PIPELINE DISPATCHER FOR PHYSICIAN NOTIFICATION. [code = PT / ELECTROCARDIOGRAPH TECHNICIAN TO OBSERVE WOUND/INCISION AND/OR INTACT DRESSING ON R KNEE AND REPORT EARLY SIGNS AND SYMPTOMS OF WOUND DETERIORATION, COMPLICATIONS, OR INFECTION TO PHYSICIAN AND/OR THE RN CLINICAL OIL PIPELINE DISPATCHER FOR PHYSICIAN NOTIFICATION.] Goal 2023-12-26 Patient Goal - I WANT TO HAVE LESS PAIN Goal Provider Goal - PATIENT WILL IMPROVE HOUSEHOLD GAIT AND STAIRS FROM CGA AND MIN A TO INDEPENDENT IN 3 WEEKS TO PROMOTE IMPROVED FUNCTIONAL MOBILITY Goal Provider Goal - PATIENT WILL DEMONSTRATE INDEPENDENCE WITH HEP AND SELF ROM TECHNIQUES IN 2 WEEKS TO PROMOTE LE STABILITY AND ACTIVITY TOLERANCE Goal Provider Goal - PT LTG: PATIENT/CAREGIVER WILL DEMONSTRATE ADHERENCE TO FALL REDUCTION SELF-MANAGEMENT AND REDUCING FALL RISK FACTORS TO MINIMIZE FALL RISK BY END OF EPISODE PT LTG: PATIENT WILL BE INDEPENDENT WITH IMPLEMENTATION OF HEP WITHIN 2 WEEKS PT LTG: CAREGIVER WILL BE INDEPENDENT ASSISTING PATIENT TO COMPLETE HEP WITHIN 2 WEEKS Goal Provider Goal - PATIENT WILL IMPROVE HOUSEHOLD TRANSFERS FROM CGA AND MIN A TO INDEPENDENT IN 2 WEEKS TO PROMOTE IMPROVED FUNCTIONAL MOBILITY Goal Provider Goal - PT LTG: PATIENT WILL MAINTAIN OXYGEN SATURATION WITHIN PHYSICIAN ORDERED PARAMETERS THROUGHOUT EPISODE OF CARE. Goal Provider Goal - PT GOAL: PATIENT WILL DEMONSTRATE UNDERSTANDING OF PAIN MANAGEMENT TECHNIQUES BY END OF EPISODE. Goal Provider Goal - PT GOAL: PATIENT WILL DEMONSTRATE OPTIMAL OUTCOMES, INCLUDING INCREASED ROM AND STRENGTH AND FUNCTIONAL MOBILITY FOLLOWING KNEE SURGERY BY END OF EPISODE. Goal Provider Goal - PT GOAL: THE PATIENT WILL NOT DEMONSTRATE ANY WOUND COMPLICATIONS DURING THE EPISODE OF CARE. Reason for Visit INDEPENDENT WITH USE OF ASSISTIVE DEVICE Encounters Start Date/Time End Date/Time Encounter Type Admission Type Attending [facility] Care Department Encounter ID Discharge Date Discharge Status Discharge Condition Discharge Reason Percent Goals Met 2023-12-10 00:00:00 2023-12-26 00:00:00 Outpatient NEW ADMISSION KATRINA VIDAL [facility] [id number] 2023-12-26 00:00:00 DISCHARGE TO HOME OR SELF CARE INDEPENDEN T WITH USE OF ASSISTIVE DEVICE HH ONLY - OUT PATIENT 85.71
--- OUTSIDE RECORDS SUMMARY | 2024-02-27 18:03 | XMS_ITS | Patient Health Record ---
[facility] Organization [facility] Address [address] [place] [address] Care Team Providers Care Top Former Name Role Phone Ross Moran MD Primary Care Provider Emerson Blandon Unavailable [phone] Allergies Allergen (clinical drug ingredient) Drug/Non Drug Allergy documented on EMR Reaction Allergy Type Onset Date Status diphenhydramine Diphenhydramine anxiety Drug Allergy Active oxycodone Oxycodone nausea Drug Allergy Active Reason For Referral No Information Medications Medication SIG (Take, Route, Frequency, Duration) Notes Start Date End Date Status Prolia Active Magnesium 300 MG 1 capsule with a roberto l Orally Once a day for 30 day(s) Not-Taking Metoprolol Succinate ER 25 MG TAKE 1 TABLET (25 MG) ORALLY DAILY Oral for 90 Days Active amLODIPine Besylate 2.5 MG 1 tablet Orally Once a day for 30 day(s) Active Xarelto 20 MG TAKE 1 TABLET BY EVONNE TH EVERY DAY Oral for 30 Days Active Walking Boot/Pneumatic As directed Wear Daily for Until further notice 12/27/2016 Not-Gallito ing Work Note . . . patient must be cast immobilized and rest with minimal weight-bearing to heal for several weeks Not-Taking Gabapentin 400 MG 1 capsule Orally Onc e a day hs for 30 day(s) Not-Taking Lisinopril 5 MG 0.5 tablet Orally On ce a day for 30 day(s) Active Omeprazole 20 MG 1 capsule Orally Onc e a day for 30 day(s) Active Furosemide 8 MG/ML Orally Once a day Not-Taking Meloxicam 5 MG Orally Once a day Not-Taking Social History Tobacco Use: Social History Observation [...] Are you an other tobacco user? No Problems Problem Type SNOMED Code ICD Code Onset Dates Problem Status W/U Status Risk Notes Problem Acquired hammer toe of right foot (0824283361939 105) Other hammer toe(s) (acquired), right foot (M20.41) Active confirmed Problem Acquired hammer toe of left foot (6042868958189 103) Other hammer toe(s) (acquired), left foot (M20.42) Active confirmed Encounters Encounter Location Date Provider Diagnosis [facility] [address] 04/07/2023 [facility] [address] 06/06/2023 [facility] [address] 09/08/2023 [facility] Plan Of Treatment Pending Test Test Name Order Date X ray : Foot, left 2V 11/06/2014 X ray : Foot, left 3V 12/27/2016 X ray : Foot, left 3V 07/05/2019 X ray : Foot, left 3V 08/09/2019 X ray : Foot, left 3V 09/19/2019 X ray : Foot, right 3V 12/27/2016 [id number] NAIL, 6 OR MORE 12/27/2016 [id number] Plate 04/29/2011 [id number] 06/10/2011 [id number]-RSA 07/01/2011 [id number]-JJT 08/02/2011 [id number] SKIN/TISSUE 08/02/2011 [id number] SKIN/TISSUE 07/01/2011 11216- Unna Boot 07/05/2019 Insurance Providers Payer Name Payer Address Payer Phone Subscriber Number Group Number Insured Name Patient Relationship to Insured Coverage Start Date Coverage End Date Medicare National [employer]t [employer] [address] [place] [address] [id number] Dunia Elliott Self - patient is the insured [facility] [address] [place] [address] [id number] Dunia Elliott Self - patient is the insured Medical (General) History Medical History History ICD Code vascular phlebitis(clots) reflux hypertension back, hip, knee pain 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
[2024-02-27 18:23] LABS: C Reactive Protein 0.54 mg/dL (< or = 0.50)
[2024-02-27 18:34] LABS: Free T4 (Free Thyroxine) 1.16 ng/dL (0.71-1.85)
== END 2024-02-27 14:18 | disposition home or self-care (01) ==
LOC: HO.HMGCLDS 14:17
PROVIDERS: PCP Internal Medicine; Visit Provider Internal Medicine
DX: R63.4 Abnormal weight loss (principal)
CPT/HCPCS: 36415; 81001; 84439; 84443; 85025; 86140; 88112

== ENCOUNTER 2024-03-28 13:02 | Outpatient (REF) | payer MEDICARE, SELFPAY ==
--- NOTE | ~2024-03-28 | CT_ITS ---
EXAMINATION: CT ABDOMEN AND PELVIS WITHOUT CONTRAST CLINICAL INFORMATION: Abdominal pain. Weight loss. COMPARISON: Correlated to ultrasound dated July 19, 2017. TECHNIQUE: Multidetector volumetric imaging was performed from the superior aspect of the liver through the pubic symphysis. Sagittal and coronal reformatted images were obtained on the technologist's workstation. This CT examination was performed using dose optimization techniques as appropriate, variously including the following: *Automated exposure control *Adjustment of mA and/or kV according to patient size (this includes techniques or standardized protocols for targeted exams where dose is matched to indication/reason for exam; i.e. extremities or head) *Use of iterative reconstruction technique DLP: 548 mGy centimeter. FINDINGS: Inadequate evaluation of the intra-abdominal organs and vascular structures due to lack of IV contrast. LUNG BASES: No acute airspace disease or gross pulmonary nodules in the included lung bases. LIVER, GALLBLADDER, AND BILIARY TREE: Liver measures 13 cm. No intrahepatic biliary ductal dilatation. There is a 4 cm intraluminal calcification in the gallbladder. There is a partially calcifications of the gallbladder wall. No pericholecystic fluid collection or gallbladder wall thickening. Common bile duct measures 4 mm. PANCREAS: Fatty-replaced. No peripancreatic fluid collections. SPLEEN: 9 cm. ADRENAL GLANDS: No nodular lesions. KIDNEYS AND URETERS: Right kidney: No hydronephrosis. No nephrolithiasis. 2.7 cm exophytic fluid density in the anterior upper pole midportion. Left kidney: No hydronephrosis. No nephrolithiasis. 1.9 cm exophytic low density in the posterior lower pole. Questionable 9 mm low density anterior lower pole. BLADDER: Collapsed. GASTROINTESTINAL TRACT: There is a segmental asymmetric wall thickening centered in the mid sigmoid colon with multiple diverticula and minimal pericolonic edema pattern. Numerous diverticula throughout the left hemicolon. No intestinal obstruction pattern. No ascites. No pneumoperitoneum. No fluid collection in the peritoneal cavity. No pneumatosis intestinalis. Appendix is note identified. ABDOMINAL WALL: Small fat-containing umbilical and infraumbilical hernias. LYMPH NODES: No gross lymphadenopathy. VASCULAR: Calcified plaques throughout the abdominal aorta wall and iliac arteries without gross aneurysm. PELVIC VISCERA: Absent uterus. OSSEOUS STRUCTURES: Multilevel thoracolumbar spondylosis resulting in grade 1 anterolisthesis L5-S1 and S-shaped curvature with a dextroconvex convexity apex at L2. 1.8 cm fluid density in the right S2.. Fatty atrophy of the muscles in the upper thighs/gluteal region. CT/CT abdomen pelvis wo IV con IMPRESSION: Consider acute to subacute sigmoid colon diverticulitis without fluid collections or pneumoperitoneum or intestinal obstruction pattern. Bilateral renal cystic lesions. Cholelithiasis. Fat-containing umbilical and infraumbilical hernias. 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 Grade 1 anterolisthesis L5-S1. Multilevel thoracolumbar spondylosis and scoliosis. Atherosclerosis disease.. Fleischner guidelines were followed. Electronically signed by: Errol Fuller MD 03/28/2024 02:05 PM CAITLIN
--- OUTSIDE RECORDS SUMMARY | 2024-03-28 14:24 | XMS_ITS ---
Author Organization [facility] Address [address] [place] [address] Care Team Providers Care Pinion Polisher Name Role Phone Ross Moran MD Primary Care Provider Emerson Blandon [phone] REASON FOR VISIT cx ON 09/11 Encounters Encounter Location Date Provider Diagnosis [facility] [address] [place] [address] 09/08/2023 Emerson Mcbride Plan Of Treatment No Information Progress Notes * Dunia ELLIOTT LDOB:[birth year] (73 yo F)Acc No.[id number]:09/08/2023 Patient:?Tasneem Elliottgrupo Simental :1950???Age:73 Y???Sex:Female Address:[address] [place] [address], [place] [address] * true * Date:? Generated for Roldani sebas/Sim/eTransmitting on:?03/28/2024 02:24 PM EST
--- OUTSIDE RECORDS SUMMARY | 2024-03-28 14:24 | XMS_ITS ---
[facility] Address [address] [place] [address] Care Team Providers Care Facilities Operations Technician Name Role Phone Ross Moran MD Primary Care Provider Emerson Blandon Unavailable [phone] Allergies Allergen (clinical drug ingredient) Drug/Non Drug [...] 09/12/2023 Encounters Encounter Location Date Provider Diagnosis [facility] [place] [address] [place] [address] 09/12/2023 Emerson Mcbride Plan Of Treatment No Information Progress Notes * EARLTasneem RICHARDricia LDOB:[birth year] (74 yo F)Acc No.[id number]:09/12/2023 Progress Notes Patient:?Dunia ELLIOTT Provider:?Emerson Mcbride DPM :1950???Age:73 Y???Sex:Female D ate:09/12/2023 Address:[address] [place], [place] [address] Pcp:Ross Moran MD Subjective: * Chief Complaints: [...] DPM Date:? 024 Generated for Yodit mullen/Sim/Perry on:?03/28/2024 02:24 PM EST
--- OUTSIDE RECORDS SUMMARY | 2024-03-28 14:24 | XMS_ITS | Patient Health Record ---
Author Organization [facility] Address [address] [place] [address] Care Team Providers Care Dry Yard Worker Name Role Phone Ross Moran MD Primary Care Provider Emerson Blandon Unavailable [phone] Allergies Allergen (clinical drug ingredient) Drug/Non Drug [...] Problem Acquired hammer toe of right foot ([id number] 105) Other hammer toe(s) (acquired), right foot (M20.41) Active confirmed Problem Acquired hammer toe of left foot (6850942370404 103) Other hammer toe(s) (acquired), left foot (M20.42) Active confirmed Encounters Encounter Location Date Provider Diagnosis [facility] [address] 04/07/2023 [facility] [address] 06/06/2023 [facility] [address] 09/08/2023 [facility] Plan Of Treatment Pending Test Test Name Order Date X ray : Foot, left 2V 11/06/2014 X ray : Foot, left 3V 12/27/2016 X ray : Foot, left 3V 07/05/2019 X ray : Foot, left 3V 08/09/2019 X ray : Foot, left 3V 09/19/2019 X ray : Foot, right 3V 12/27/2016 [id number] NAIL, 6 OR MORE 12/27/2016 [id number] Plate 04/29/2011 [id number] 06/10/2011 [id number] 07/01/2011 [id number] 08/02/2011 [id number] SKIN/TISSUE 08/02/2011 [id number] SKIN/TISSUE 07/01/2011 40386- Unna Boot 07/05/2019 Insurance Providers Payer Name Payer Address Payer Phone Subscriber Number Group Number Insured Name Patient Relationship to Insured Coverage Start Date Coverage End Date Medicare National Govt Svcs Inc [address] [place] [address] [id number] Dunia Elliott Self - patient is the insured [facility] [address] [place] [address] [id number] Dunia Elliott Self - patient is [...]
--- OUTSIDE RECORDS SUMMARY | 2024-03-28 14:24 | XMS_ITS ---
Author Organization [facility] Address [address] [facility] [place] [address] Care Team Providers Care Ladderman Name Role Phone Ross Moran MD Primary Care Provider Emerson Blandon Unavailable [phone] Allergies Allergen (clinical drug ingredient) Drug/Non Drug [...] 06/08/2023 Encounters Encounter Location Date [facility] [address] [place] [address] 06/08/2023 Emerson Mcbride Plan Of Treatment No Information Progress Notes * Dunia ELLIOTT LDOB:[birth year] (74 yo F)Acc No.[id number]:06/08/2023 Progress Notes Patient:?Dunia ELLIOTT Provider:?Emerson Mcbride DPM :1950???Age:73 Y???Sex:Female D ate:06/08/2023 Address:[address] [place], [place] [id number] Pcp:Ross Moran MD Subjective: * Chief Complaints: [...]
== END 2024-03-28 13:03 | disposition home or self-care (01) ==
LOC: HO.CT 13:02
PROVIDERS: PCP Internal Medicine; Visit Provider Internal Medicine
DX: R10.84 Generalized abdominal pain (principal)
CPT/HCPCS: 74176

== ENCOUNTER → 2024-03-28 13:05 | Outpatient (BNV) | payer MEDICARE, SELFPAY | PROVIDERS: PCP Internal Medicine; Visit Provider Radiology Diagnostic Radiology | DX: K57.32 Diverticulitis of large intestine without perforation or abscess without bleeding (principal); N28.1 Cyst of kidney, acquired | CPT/HCPCS: 74176 ==

== ENCOUNTER 2024-04-23 11:07 | Outpatient (REF) | payer MEDICARE, SELFPAY ==
[2024-04-23 11:59] LABS: Appearance Urine Turbid; Color Urine Dark Yellow; Glucose Urine UA Negative (Negative); Leukocyte Esterase Urine Large (3+) (Negative); Nitrite Urine Positive (Negative); PH 5.5 (5.0-9.0); UMIC TRIGGER UACC YES; Urine Blood Moderate (2+) (Negative); Urine Ketones Trace mg/dL (Negative); Urine Protein 300 (3+) mg/dL (Neg-Trace)
[2024-04-23 12:19] LABS: Bacteria Urine 4+ (None Seen); UACC Culture Trigger YES; WBC Urine >50 /HPF (0-5)
== END 2024-04-23 11:08 | disposition home or self-care (01) ==
LOC: HO.10HDLNP 11:07
PROVIDERS: Visit Provider Internal Medicine
DX: R30.0 Dysuria (principal)
CPT/HCPCS: 81001; 87086; 87088; 87186

== ENCOUNTER 2024-05-09 14:13 | Inpatient (IN) | payer MEDICARE, SELFPAY ==
--- NOTE | ~2024-05-09 | XR_ITS ---
EXAMINATION: XR CHEST CLINICAL INFORMATION: pain COMPARISON: 07/09/2014 TECHNIQUE: 2 views of the chest were obtained. FINDINGS: The cardiac, hilar, and mediastinal contours are normal. Mild aortic calcification. The lungs are diffusely hyperaerated, however clear bilaterally. There is no pneumothorax or pleural effusion. There is no focal osseous or soft tissue abnormality. There are spinal degenerative changes. XR/XR chest 2V IMPRESSION: 1. Findings suggesting COPD. 2. No active superimposed disease. Electronically signed by: Aron Raymond MD 05/09/2024 02:55 PM EDT
--- NOTE | ~2024-05-09 | CT_ITS ---
CLINICAL HISTORY: weight loss unint, poor appetite, high calcium CT of the abdomen and pelvis utilizing intravenous contrast. Comparison 03/28/2024. Findings: Superiorly in the liver there is an ill-defined 1.2 cm subtle hypodensity similar to previous that is technically indeterminate. There is prominent cholelithiasis. The gallbladder is dilated to just over 5 cm. No significant pericholecystic inflammatory changes. There is no hydronephrosis. Renal hypodensities are presumably cysts. The spleen is unremarkable. There is severe pancreatic atrophy. There are several small pancreatic hypodensities presumably representing cysts measuring up to 9 mm. No abdominal aortic aneurysm. The appendix is not definitely seen. There is no bowel obstruction. No definite diverticulitis is seen. There is mild nonspecific wall thickening of the left-sided colon. There is a possible small fistulous tract between the left aspect of the bladder and sigmoid colon. There are no significant adjacent inflammatory changes. There has been a hysterectomy. There is mild bladder wall thickening. This is nonspecific. There is moderate stool in the rectum. Impression: Prominent cholelithiasis with dilatation of the gallbladder. Consider follow-up if there is clinical concern for acute gallbladder disease. There is a possible small fistulous tract from the bladder to the sigmoid colon without adjacent inflammatory change. This can be seen as a sequela of diverticulitis. There is no gas within the bladder. There is mild bladder wall thickening accentuated by lack of distention however mild cystitis is a possibility. Mild left-sided colonic wall thickening likely related to incomplete distention and muscular hypertrophy. This is more pronounced in the sigmoid colon and technically indeterminate consider correlation with recent colonoscopy to exclude an underlying abnormality or follow-up if low-grade colitis is clinically a possibility. Small hepatic hypodensity is technically indeterminate. Small pancreatic hypodensities are likely cysts. This document has been electronically signed by: Mykel Uribe MD on 05/09/2024 17:33:46
--- NOTE | 2024-05-09 14:19 | ED_ITS ---
HPI - General Adult General Chief complaint: General Medical Stated complaint: sick for months Time Seen by Provider: 05/09/24 15:08 Source: patient and old records reviewed Mode of arrival: ambulatory Limitations: no limitations History of Present Illness ED Provider: KAELA RENTERIA narrative: 74 yo female with PMH of HTN, afib on xarelto, GERD, who presents today with c/o poor PO intake and 50lb weight loss with fatigue and food aversions. She has had CT scan that was dry study but was negative from PCP. She is due for colonoscopy and EGD in May with Dr. Craig. She notes she is so tired she cannot go out of the house and she cannot stand long to brush her teeth. She denies fevers. Has been worked up and treated for P. Vera at [facility] she is on hydroxyurea. She is here for severe fatigue and not eating today. This all started one month after orthopedic surgery. MD complaint: fatigue, FTT, anorexia, weight loss Onset (ago): month(s) (4) Radiation: non-radiation Severity: moderate Relieving factors: none Exacerbating factors: eating Associated symptoms: loss of appetite, malaise and weakness Treatments prior to arrival: none Related Data Home Medications ?Medication ?Instructions ?Recorded ?Confirmed amlodipine 10 mg tablet 10 mg PO DAILY 03/10/21 05/09/24 lisinopril 40 mg tablet 40 mg PO DAILY 03/10/21 05/09/24 omeprazole 20 mg capsule,delayed 20 mg PO DAILY PRN Heartburn 03/10/21 05/09/24 release hydroxyurea 500 mg capsule 500 mg PO DAILY 10/25/23 05/09/24 prochlorperazine maleate 5 mg 5 mg PO BID PRN Nausea And Vomiting 10/25/23 05/09/24 tablet (Compazine) sertraline 50 mg tablet (Zoloft) 50 mg PO DAILY 10/25/23 05/09/24 acetaminophen 325 mg tablet 975 mg PO Q8H PRN Pain 05/09/24 05/09/24 temazepam 15 mg capsule 15 mg PO BEDTIME PRN Sleep 05/09/24 05/09/24 Previous Rx's ?Medication ?Instructions ?Recorded metoprolol succinate 25 mg 25 mg PO DAILY #90 tabs 09/28/23 tablet,extended release 24 hr rivaroxaban 20 mg tablet (Xarelto) 20 mg PO DAILY #30 tabs 11/25/23 sulfamethoxazole 800 1 tab PO BID 5 days #10 tabs 04/23/24 mg-trimethoprim 160 mg tablet (Bactrim DS) Allergies Allergy/AdvReac Type Severity Reaction Status Date / Time diphenhydramine AdvReac Anxiety Verified 05/09/24 14:25 Review of Systems 2 Review of Systems: Constitutional : No Fever, No Chills, pos Fatigue, pos weight loss ENT/Mouth : No sore throat, No Rhinorrhea Eyes: No Eye Pain, No Swelling, No Redness Cardiovascular : No Chest Pain, No SOB, No Dyspnea on Exertion Respiratory : No Cough, No Sputum Gastrointestinal : pos Nausea, No Vomiting, No Diarrhea, No abdominal Pain Genitourinary : No Dysuria, No Urinary Frequency, No Hematuria, Musculoskeletal : No joint pain, No Myalgias, No Joint Swelling Skin : No Skin Lesions, No rash Neuro : No Weakness, No Numbness, No Dizziness, positive Headache Psych : No Anxiety/Panic, No Depression All other systems reviewed and are negative [facility] Past Medical History Attestation statement: The following information was validated with the patient. Source: old records reviewed Medical History (Updated 05/10/24 @ 03:09 by Ranjana Richardson PA-C) Polycythemia vera Postoperative nausea Osteopenia Hx of Lyme disease GERD (gastroesophageal reflux disease) Paroxysmal atrial fibrillation HTN (hypertension) Persistent atrial fibrillation Surgical History Hx of section Hx of hysterectomy Hx of colonoscopy Hx of appendectomy Family History Family History Father Cancer Stroke Mother Diabetes Social History Social History Household Members: None Housing: Condominium Are you a primary health care administrator to a significant other at home: Yes ( with Alzheimer's and Parkinson's) Do you presently have visiting nurse or other home services: No Patient Tobacco Use Status: Never used Tobacco Use of substances other than those prescribed or required for medical reasons: No Have you been hit, kicked, punched, or otherwise hurt by someone within the past year? If so, by whom?: No Do you feel safe in your current relationship?: No Current Relationship Is there a partner from a previous relationship who is making you feel unsafe now?: No Are you made to feel afraid or neglected: No Advance Directives: Yes Advance Directives Information Provided: Yes Advance Directives on File: No Advance Directives Date on File: 03/11/21 Do you have a plan to hurt others: No Plan Recently lost weight without trying: Yes How much weight loss: 34pounds or more Eating poorly because of decreased appetite: Yes Nutrition screen score: 7 Nutrition Risks: Poor intake 0-25% >4 days Patient : No : No Poor oral hygiene: No Physical Exam ED Vital Signs: Vital Signs - 24 hr 05/09/24 14:21 05/09/24 17:14 05/09/24 21:00 Temperature 98 F 98.3 F 97.9 F Pulse Rate 119 H 80 84 Respiratory Rate 19 16 17 Blood Pressure 146/81 H 163/92 H 169/88 H Pulse Oximetry 96 99 97 Oxygen Delivery Method Room Air Room Air Room Air BMI result Body Mass Index 24.9 Appearance: Alert. Oriented X3. No acute distress. Eyes: Pupils equal, round and reactive to light. ENT: Pharynx dry MM Neck: Normal inspection. Neck supple. CVS: Normal heart rate and rhythm. Pulses normal. Respiratory: No respiratory distress. Breath sounds normal. Abdomen: Soft and nontender. Skin: Skin warm and dry. pale skin color. Normal skin turgor. Extremities: No lower extremity edema. Neuro: Oriented X 3. No motor deficit. No sensory deficit. CN2-12 intact Course Course Course Narrative: RME, this is a rapid medical exam performed by Irineo Sow please refer to primary provider for complete H&P- 74-year-old female presents for evaluation of weakness and a 50 lb weight loss in the last 4 months. Patient reports that she was recently diagnosed with polycythemia vera. Plan for labs, urinalysis, chest x-ray. Reevaluation(s) Reevaluation #1: signed out to Dr. Pratt pending CT scan Medications Administered Generic Name Dose Route Start Last Admin Trade Name Freq PRN Reason Stop Dose Admin Amlodipine Besylate 10 mg 05/10/24 09:00 05/10/24 09:29 Amlodipine Besylate 10 Mg Tablet PO 10 mg DAILY PAYAL Administration Protocol Hydroxyurea 500 mg 03/27/25 09:00 05/10/24 10:55 Hydroxyurea 500 Mg Capsule PO 500 mg DAILY PAYAL Administration Piperacillin Sod/Tazobactam 50 mls @ 100 mls/hr 05/10/24 03:15 05/10/24 10:06 Sod 3.375 gm/ Sodium Chloride IV Infused Q6H PAYAL Infusion Lisinopril 40 mg 05/10/24 09:00 05/10/24 10:55 Lisinopril 40 Mg Tablet PO 40 mg DAILY PAYAL Administration Protocol Metoprolol Succinate 25 mg 05/10/24 09:00 05/10/24 09:29 Metoprolol Succinate Er 25 Mg Tab.Er.24h PO 25 mg DAILY PAYAL Administration Protocol Ondansetron HCl 4 mg 05/09/24 23:38 05/10/24 02:33 Ondansetron Hcl 4 Mg/2 Ml Vial IVPUSH 4 mg Q8H PRN Administration Nausea and Vomiting Sertraline HCl 50 mg 05/10/24 09:00 05/10/24 09:29 Sertraline Hcl 50 Mg Tablet PO 50 mg DAILY PAYAL Administration Sodium Chloride 3 ml 05/10/24 00:00 05/10/24 07:07 0.9 % Sodium Chloride Flush 3 Ml Syringe IVFLUSH 3 ml QSHIFT PAYAL Administration Discontinued Medications Generic Name Dose Route Start Last Admin Trade Name Freq PRN Reason Stop Dose Admin Sodium Chloride 1,000 mls @ 999 mls/hr 05/09/24 15:11 05/09/24 17:07 Ns IV 05/09/24 16:11 Infused .Q1H1M ONE Infusion Potassium Chloride 10 meq in 100 mls @ 100 mls/hr 05/09/24 15:30 05/09/24 18:16 Potassium Chloride/H20 IV 05/09/24 17:29 Infused Q1H PAYAL Infusion Sodium Chloride 1,000 mls @ 999 mls/hr 05/09/24 15:21 05/09/24 18:16 Ns IV 05/09/24 16:21 Infused .Q1H1M ONE Infusion Magnesium Sulfate 2 gm in 50 mls @ 25 mls/hr 05/09/24 15:28 05/09/24 18:16 Magnesium Sulfate/H2o IV 05/09/24 17:27 Infused ONCE ONE Infusion Piperacillin Sod/Tazobactam 50 mls @ 100 mls/hr 05/09/24 18:09 05/09/24 19:17 Sod 3.375 gm/ Sodium Chloride IV 05/09/24 18:38 Infused ONCE ONE Infusion Potassium Chloride 10 meq in 100 mls @ 100 mls/hr 05/10/24 07:00 05/10/24 11:11 Potassium Chloride/H20 IV 05/10/24 10:59 100 mls/hr Q1H PAYAL Administration Iohexol 85 ml 05/09/24 16:43 05/09/24 16:43 Iohexol 350 Mg/Ml 100 Ml Infus..Btl IV 05/09/24 16:44 85 ml ONCE ONE Administration Medical Decision Making Medical Decision Making MDM Narrative: 74 yo female with PMH of HTN, afib on xarelto, GERD, p. Vera on hydroxyurea who presents today with c/o 50lb weight loss, poor appetite, nausea severe fatigue and weakness who has had a colonoscopy in last 5 years showing possible ulcerations, CT scan non con no mass seen presents as she cannot take the weakness she cannot even brush her teeth for long. At this time given her lytes there is concern for possible malignancy - labs, IVF x 2L for calcium, CT scan with contrast to make sure there is no mass. CXR as well. Patient's CT scan reviewed which showed gallstones and small fistulous connection between sigmoid colon and the bladder possibly from the diverticulitis which she had in 04/10 will start patient on IV antibiotics and admit for further management on examination of the abdomen patient has had only very mild deep tenderness in the left lower quadrant Differential Diagnosis Differential Diagnoses: The differential diagnosis associated with the presentation includes dehydration, lyte abnormality, mass Admission/Observation Consideration of admission/observation: Escalation of care including admission/observation considered Lab Data [facility] Lab Attestation statement: I reviewed the patient's lab results. 05/10/24 05:36 05/10/24 05:36 Labs: Lab Results 05/09/24 05/09/24 05/09/24 Range/Units 14:36 18:38 20:19 WBC 11.9 H (4.8-10.8) X10*3/uL RBC 4.05 L D (4.20-5.50) X10*6/uL Hgb 13.9 (12.0-16.0) g/dl Hct 40.4 (37.0-47.0) % MCV 99.8 H (80.0-98.0) fL MCH 34.3 H (27.0-33.0) pg MCHC 34.4 (31.0-35.0) g/dl RDW 15.9 (11.0-16.0) % Plt Count 398 D (160-400) X10*3/uL MPV 8.3 L (9.4-12.3) fL Immature Gran % (Auto) 0.8 H (0.0-0.4) % Neut % (Auto) 75.6 H (45-73) % Lymph % (Auto) 17.0 L (20-40) % [place] % (Auto) 6.1 (2-11) % Eos % (Auto) 0.1 (0-4) % Baso % (Auto) 0.4 (0-2) % Lymph # (Auto) 2.0 (1.2-4.9) X10*3/uL [place] # (Auto) 0.7 (0.1-1.2) X10*3/uL Eos # (Auto) 0.0 (0.0-0.4) X10*3/uL Baso # (Auto) 0.1 (0.0-0.2) X10*3/uL Abs Immat Gran (auto) 0.10 H (0.00-0.03) X10*3/uL Absolute Neuts (auto) 9.0 H (2.0-8.3) x10*3/uL Absolute Nucleated RBC 0.000 (0.0-0.012) X10*3/uL Nucleated RBC % (auto) 0.0 (0.0-0.2) /100WBC Sodium 137 (135-145) mmol/L Potassium 3.0 L (3.3-5.1) mmol/L Chloride 105 (96-108) mmol/L Carbon Dioxide 17 L (22-29) mmol/L Anion Gap 18 (12-20) BUN 19 H (9-16) mg/dL Creatinine 1.10 (0.5-1.4) mg/dL Estim Creat Clear Calc 44.9 Estimated GFR 49 Random Glucose 139 H (60-115) mg/dL Lactic Acid 1.7 (0.5-2.0) mmol/L Calcium 11.3 H D (8.4-10.2) mg/dL Magnesium 1.5 L (1.6-2.6) mg/dL Total Bilirubin 1.5 H (0.0-1.0) mg/dL AST 20 (5-31) U/L ALT 12 (0-31) U/L Alkaline Phosphatase 53 (39-117) U/L Troponin I High Sens 12.9 (<3.5-17.0) ng/L Total Protein 6.6 (6.5-8.0) g/dL Albumin 3.6 (3.5-5.0) g/dL Lipase 6 L (8-78) U/L TSH 1.76 (0.32-4.0) uIU/mL Urine Color Dark Yellow Urine Appearance Cloudy Urine pH 6.0 (5.0-9.0) Ur Specific [place] >= 1.030 H (1.005-1.025) Urine Protein Negative (Neg-Trace) mg/dL Urine Glucose (UA) Negative (Negative) mg/dL Urine Ketones 40 (Negative) mg/dL Urine Blood Negative (Negative) Urine Nitrite Positive H (Negative) Ur Leukocyte Esterase Moderate (2+) H (Negative) Urine RBC 0-2 (0-2) /HPF Urine WBC >50 H (0-5) /HPF Ur Squamous Epith Cells 6-10 (0-2) /HPF Urine Bacteria None Seen (None Seen) Hyaline Casts 6-10 (0-2) /LPF Influenza Type A (PCR) NEGATIVE (Negative) Influenza Type B (PCR) NEGATIVE (Negative) RSV RNA Qual (PCR) NEGATIVE (Negative) SARS-CoV-2 RNA (RT-PCR) NEGATIVE (Negative) Independent Interpretation I performed an independent interpretation of an: EKG Interpretation: Rate: 105 Rhythm: sinus tach [place]: normal Normal P waves. Normal ANUJA. Normal QRS complex. ST T wave : no TRACI, nonspecific ST T wave changes lateral leads, inf leads qTC: 412 prior studies: changed from 2023 The study has been interpreted contemporaneously by me. . Radiology Impression Discussion of test interpretation with radiology: I have reviewed the radiologist's reading. Radiologist Impression: Impression: Prominent cholelithiasis with dilatation of the gallbladder. Consider follow-up if there is clinical concern for acute gallbladder disease. There is a possible small fistulous tract from the bladder to the sigmoid colon without adjacent inflammatory change. This can be seen as a sequela of diverticulitis. There is no gas within the bladder. There is mild bladder wall thickening accentuated by lack of distention however mild cystitis is a possibility. Mild left-sided colonic wall thickening likely related to incomplete distention and muscular hypertrophy. This is more pronounced in the sigmoid colon and technically indeterminate consider correlation with recent colonoscopy to exclude an underlying abnormality or follow-up if low-grade colitis is clinically a possibility. Small hepatic hypodensity is technically indeterminate. Small pancreatic hypodensities are likely cysts. This document has been electronically signed by: Mykel Uribe MD on 05/09/2024 17:33:46 Independent Historian Clinical information obtained from an independent historian. History obtained from or confirmed by: Friend External Record Review External record reviewed: Inpatient record and Outpatient record Discharge Plan Discharge Clinical Impression: Acute hypokalemia, Adult failure to thrive, Hypomagnesemia, Hypercalcemia, Diverticulitis large intestine Patient Disposition: Admitted As Inpatient
[2024-05-09 14:21] VITALS: BP 146/81; PULSE 119; RESP 19; TEMP 36.6; O2SAT 96; BMI 24.9
--- NOTE | 2024-05-09 14:21 | ECG_ITS ---
Test Reason : weakness Blood Pressure : */* mmHG Vent. Rate : 105 BPM Atrial Rate : 105 BPM P-R Int : 168 ms QRS Dur : 68 ms QT Int : 312 ms P-R-T Axes : 82 54 212 degrees QTcB Int : 412 ms Sinus tachycardia Septal infarct , age undetermined ST & Marked T wave abnormality, consider inferior ischemia Abnormal ECG No previous ECGs available Referred By: Aleksandr Sow Electronically Signed By: TANVIR SCANLON MD
[2024-05-09 14:46] LABS: MANUAL DIFF FLAG NO
[2024-05-09 14:48] LABS: Basophils Absolute Auto 0.1 X10*3/uL (0.0-0.2); Basophils Percent Auto 0.4 % (0-2); Eosinophils Percent Auto 0.1 % (0-4); Hematocrit 40.4 % (37.0-47.0); Hemoglobin 13.9 g/dl (12.0-16.0); Imm Gran Pct Auto 0.8 % (0.0-0.4); Mean Corpuscular HGB Conc 34.4 g/dl (31.0-35.0); Mean Corpuscular Hemoglobin 34.3 pg (27.0-33.0); Mean Corpuscular Volume 99.8 fL (80.0-98.0); Mean Platelet Volume 8.3 fL (9.4-12.3); Monocytes Absolute Auto 0.7 X10*3/uL (0.1-1.2); Monocytes Percent Auto 6.1 % (2-11); Neutrophils Percent Auto 75.6 % (45-73); Platelet Count 398 X10*3/uL (160-400); Red Blood Count 4.05 X10*6/uL (4.20-5.50); Red Cell Distribution Width 15.9 % (11.0-16.0); White Blood Count 11.9 X10*3/uL (4.8-10.8)
[2024-05-09 15:08] LABS: Alanine Aminotransferase 12 U/L (0-31); Albumin Level 3.6 g/dL (3.5-5.0); Alkaline Phosphatase 53 U/L (39-117); Anion Gap 18 (12-20); Aspartate Amino Transferase 20 U/L (5-31); Bilirubin Total 1.5 mg/dL (0.0-1.0); Blood Urea Nitrogen 19 mg/dL (9-16); Calcium 11.3 mg/dL (8.4-10.2); Carbon Dioxide 17 mmol/L (22-29); Chloride 105 mmol/L (96-108); Creatinine Clr Calc Pharmacy 44.9; Estimated Glomerular Filt Rate 49; Glucose Random 139 mg/dL (60-115); Lipase 6 U/L (8-78); Magnesium 1.5 mg/dL (1.6-2.6); Sodium 137 mmol/L (135-145); Total Protein 6.6 g/dL (6.5-8.0)
[2024-05-09 15:22] LABS: TSH reflex Free T4 1.76 uIU/mL (0.32-4.0)
[2024-05-09] MEDS: 0.9 % Sodium Chloride 1,000 ML 999 ML IV ×2 (15:25→17:07)
[2024-05-09 15:46] LABS: Influenza A PCR NEGATIVE (Negative); Influenza B PCR NEGATIVE (Negative); Resp Syncy Virus RNA Qual PCR NEGATIVE (Negative); SARS COV2 PCR INHOUSE NEGATIVE (Negative)
[2024-05-09] MEDS: Potassium Chloride/H20 10 MEQ/100 ML PIGGYBACK 100 MEQ IV ×2 (15:52→17:08)
[2024-05-09] MEDS: Magnesium Sulfate/H2O 2 GM/50 ML PIGGYBACK IV (15:52)
[2024-05-09 15:59] LABS: Troponin-I High Sensitivity 12.9 ng/L (<3.5-17.0)
[2024-05-09] MEDS: iohexoL 350 MG/ML 100 ML INFUS..BTL 85 ML IV (16:43)
[2024-05-09 17:14] VITALS: BP 163/92; PULSE 80; RESP 16; TEMP 36.8; O2SAT 99
[2024-05-09] MEDS: Piperacillin Sodium/Tazobactam 3.375 GM in 0.9 % Sodium Chloride 50 ML IV (18:44)
[2024-05-09 19:02] LABS: Lactic Acid 1.7 mmol/L (0.5-2.0)
--- NOTE | 2024-05-09 19:52 | PHA.MEDREC ---
Addendum entered by Dane Lucio, [facility] 05/09/24 20:08: [facility] rec reviewed Original Note: Pharmacy Consult ? Medication Reconciliation Pharmacy has completed the medication reconciliation. Spoke with patient to confirm. She reports she is still on bactrim bid, last took yesterday. She last took Xarelto 2 days ago. Omeprazole is prn. She still takes amlodipine and lisinopril (LF per claim history 12/2023 x90DS). She is no longer on prolia, last had 6 months ago.
[2024-05-09 20:27] LABS: Appearance Urine Cloudy; Color Urine Dark Yellow; Glucose Urine UA Negative (Negative); Leukocyte Esterase Urine Moderate (2+) (Negative); Nitrite Urine Positive (Negative); Specific Gravity - Urine >= 1.030 (1.005-1.025); UMIC TRIGGER UACC YES; Urine Blood Negative (Negative); Urine Ketones 40 mg/dL (Negative); Urine Protein Negative (Neg-Trace)
[2024-05-09 20:34] LABS: Bacteria Urine None Seen (None Seen); RBC Urine 0-2 /HPF (0-2); UACC Culture Trigger YES; WBC Urine >50 /HPF (0-5)
[2024-05-09 21:00] VITALS: BP 169/88; PULSE 84; RESP 17; TEMP 36.6; O2SAT 97
--- NOTE | 2024-05-09 23:13 | MHC.EDTECH ---
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
[2024-05-10] VITALS (8 sets, daily range): BP systolic 135–171; BP diastolic 75–95; PULSE 71–88; RESP 12–18; TEMP 36.1–36.8; O2SAT 98–99; BMI 27.1
[2024-05-10] MEDS: 0.9 % Sodium Chloride Flush 3 ML SYRINGE IVFLUSH ×4 (02:32→20:19)
[2024-05-10] MEDS: ondansetron HCL 4 MG/2 ML VIAL IVPUSH ×2 (02:33→12:44)
--- NOTE | 2024-05-10 02:51 | PM.IMHP ---
History of Present Illness Date of Service: 05/10/24 Attending physician on admission: Wilder Reis Chief Complaint: Decreased appetite, weight loss, nausea and weakness Patient is a 74-year-old female with a past medical history significant for HTN, AFib on Xarelto, GERD, polycythemia vera on hydroxyurea, who presented to the ED due to decreased appetite for the past few months a significant weight loss of reported 70 lb over the last few months, nausea, vomiting and weakness. The patient reports that last month she was having abdominal pain and had an abdominopelvic CT by her PCP and was diagnosed with diverticulitis but was not treated with any antibiotics. Her abdominal pain resolved however she continues to have nausea and vomiting as well as weight loss. She denies any upper respiratory symptoms including fever, chills, headache, nasal congestion, rhinorrhea, sore throat or cough. She has had frequent UTIs recently requiring multiple antibiotic treatments, just completed Bactrim. She is scheduled for an endoscopy and colonoscopy with Dr. Craig soon, she reports a previous colonoscopy with possible ulcerative colitis. Review of Systems Constitutional: Constitutional: Denies body ache(s), Denies chills, Reports fatigue, Denies headache(s), Reports lethargy and Reports weakness Eyes: Eyes: Denies change in vision and Denies photophobia ENT: Denies headache(s), Denies nasal congestion, Denies nasal discharge and Denies sore throat Cardiovascular: Cardiovascular: Denies chest pain, Denies rapid heart rate, Denies leg edema, Denies lightheadedness and Denies dyspnea Respiratory: Respiratory: Denies chest congestion, Denies cough, Denies dyspnea and Denies wheezing Gastrointestinal: Gastrointestinal: Reports abdominal pain, Denies melena, Denies hematochezia, Denies diarrhea, Reports nausea, Reports vomiting and Denies hematemesis Genitourinary: Genitourinary: Denies dysuria and Denies urinary urgency Musculoskeletal: Musculoskeletal: Denies back pain and Denies myalgias Integumentary/Breasts: Skin/Breast: Denies rash Neurologic: Denies confusion, Denies headache(s) and Reports weakness Psychiatric: Psychiatric: Denies confusion Endocrine: Endocrine: Reports fatigue Hematologic/Lymphatic: Hematologic/Lymphatic: Denies easy bleeding and Denies easy bruising Allergic/Immunologic: Allergic/Immunologic: Denies wheezing [facility] Medical History (Updated 05/10/24 @ 03:09 by Ranjana Richardson PA-C) Polycythemia vera Postoperative nausea Osteopenia Hx of Lyme disease GERD (gastroesophageal reflux disease) Paroxysmal atrial fibrillation HTN (hypertension) Persistent atrial fibrillation Functional capacity: independent ambulation Family History Father Cancer Stroke Mother Diabetes Surgical History Hx of section Hx of hysterectomy Hx of colonoscopy Hx of appendectomy Social History Are you a primary child care counselor to a significant other at home: Yes ( with Alzheimer's and Parkinson's) Do you presently have visiting nurse or other home services: Yes Patient Tobacco Use Status: Never used Tobacco Advance Directives: Yes Advance Directives Information Provided: Yes Advance Directives on File: No Advance Directives Date on File: 03/11/21 Do you have a plan to hurt others: No 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 No tobacco, rare alcohol, no drug use Meds Allergies Allergy/AdvReac Type Severity Reaction Status Date / Time diphenhydramine AdvReac Anxiety Verified 05/09/24 14:25 Active Medications: Current Medications Acetaminophen (Acetaminophen 325 Mg Tablet) 975 mg PO Q6H PRN PRN Reason: Pain, Mild 1-3,fever,headache Amlodipine Besylate (Amlodipine Besylate 10 Mg Tablet) 10 mg PO DAILY [facility]; Protocol Calcium Carbonate (Calcium Carbonate 750 Mg Tab.Chew) 750 mg PO Q4H PRN PRN Reason: Heartburn Hydroxyurea (Hydroxyurea 500 Mg Capsule) 500 mg PO DAILY [facility] Lisinopril (Lisinopril 40 Mg Tablet) 40 mg PO DAILY [facility]; Protocol Magnesium Hydroxide (Milk Of Magnesia 30 Ml Oral.Susp) 30 ml PO DAILY PRN PRN Reason: Constipation Melatonin (Melatonin 3 Mg Tablet) 6 mg PO BEDTIME PRN PRN Reason: Insomnia Metoprolol Succinate (Metoprolol Succinate Er 25 Mg Tab.Er.24h) 25 mg PO DAILY [facility]; Protocol Morphine Sulfate (Morphine Sulfate 4 Mg/Ml Cartridge) 2 mg IVPUSH Q4H PRN; Protocol PRN Reason: Pain, Severe (Pain Scale 7-10) Omeprazole (Omeprazole 20 Mg Capsule.Dr) 20 mg PO DAILY PRN PRN Reason: Heartburn Ondansetron HCl (Ondansetron Hcl 4 Mg/2 Ml Vial) 4 mg IVPUSH Q8H PRN PRN Reason: Nausea and Vomiting Last Admin: 05/10/24 02:33 Dose: 4 mg Oxycodone HCl (Oxycodone Hcl Immed Release 5 Mg Tablet) 5 mg PO Q6H PRN PRN Reason: Pain, Moderate(Pain Scale 4-6) Sertraline HCl (Sertraline Hcl 50 Mg Tablet) 50 mg PO DAILY [facility] Sodium Chloride (0.9 % Sodium Chloride Flush 3 Ml Syringe) 3 ml IVFLUSH QSHIFT [facility] Last Admin: 05/10/24 02:32 Dose: 3 ml Home Medications ?Medication ?Instructions ?Recorded ?Confirmed ?Last Taken ?Type amlodipine 10 mg tablet 10 mg PO DAILY 03/10/21 05/09/24 08/12/21 History lisinopril 40 mg tablet 40 mg PO DAILY 03/10/21 05/09/24 Unknown History omeprazole 20 mg capsule,delayed 20 mg PO DAILY PRN Heartburn 03/10/21 05/09/24 08/12/21 History release hydroxyurea 500 mg capsule 500 mg PO DAILY 10/25/23 05/09/24 Unknown History prochlorperazine maleate 5 mg 5 mg PO BID PRN Nausea And Vomiting 10/25/23 05/09/24 Unknown History tablet (Compazine) sertraline 50 mg tablet (Zoloft) 50 mg PO DAILY 10/25/23 05/09/24 Unknown History acetaminophen 325 mg tablet 975 mg PO Q8H PRN Pain 05/09/24 05/09/24 Unknown History temazepam 15 mg capsule 15 mg PO BEDTIME PRN Sleep 05/09/24 05/09/24 Unknown History Physical Exam Vital Signs and Narrative: Vital Signs: Last Vital Signs Temp 98.0 F 05/10/24 02:18 Pulse 86 05/10/24 02:18 Resp 12 05/10/24 02:18 BP 170/85 H 05/10/24 02:18 Pulse Ox 99 05/10/24 02:18 O2 Del Method Room Air 05/10/24 02:18 BMI result Body Mass Index 24.9 General: AOx3, no acute distress Resp: CTA bilaterally CVS: S1, S2, RRR GI: +BS, tender with deep palpation left lower quadrant, no distention Skin: Warm, dry Neuro: Cranial nerves II-XII grossly intact bilaterally. Motor grossly intact bilaterally Extremities: No lower extremity edema Psych: Appropriate affect Const: General: No confusion Orientation/consciousness: No confusion Eyes: Direct Ophthalmoscopy: No photophobia Neuro: General: No confusion Results Labs 05/09/24 14:36 05/09/24 14:36 Labs: Laboratory Results - last 24 hr 05/09/24 05/09/24 05/09/24 14:36 18:38 20:19 MCV 99.8 H MCH 34.3 H MCHC 34.4 RDW 15.9 Plt Count 398 D MPV 8.3 L Immature Gran % (Auto) 0.8 H Neut % (Auto) 75.6 H Lymph % (Auto) 17.0 L [place] % (Auto) 6.1 Eos % (Auto) 0.1 Baso % (Auto) 0.4 Lymph # (Auto) 2.0 [place] # (Auto) 0.7 Eos # (Auto) 0.0 Baso # (Auto) 0.1 Abs Immat Gran (auto) 0.10 H Absolute Neuts (auto) 9.0 H Absolute Nucleated RBC 0.000 Nucleated RBC % (auto) 0.0 Anion Gap 18 Estim Creat Clear Calc 44.9 Estimated GFR 49 Random Glucose 139 H Lactic Acid 1.7 Calcium 11.3 H D Magnesium 1.5 L Total Bilirubin 1.5 H AST 20 ALT 12 Alkaline Phosphatase 53 Total Protein 6.6 Albumin 3.6 Lipase 6 L TSH 1.76 Urine Color Dark Yellow Urine Appearance Cloudy Urine pH 6.0 Ur Specific [place] >= 1.030 H Urine Protein Negative Urine Glucose (UA) Negative Urine Ketones 40 Urine Blood Negative Urine Nitrite Positive H Ur Leukocyte Esterase Moderate (2+) H Urine RBC 0-2 Urine WBC >50 H Ur Squamous Epith Cells 6-10 Urine Bacteria None Seen Hyaline Casts 6-10 Influenza Type A (PCR) NEGATIVE Influenza Type B (PCR) NEGATIVE RSV RNA Qual (PCR) NEGATIVE SARS-CoV-2 RNA (RT-PCR) NEGATIVE Imaging Radiologist's Impressions: Impressions Chest X-Ray 05/09/24 14:21 IMPRESSION: 1. Findings suggesting COPD. 2. No active superimposed disease. Electronically signed by: Aron Raymond MD 05/09/2024 02:55 PM EDT RP Assessment and Plan (1) [place]-vesical fistula: Status: Acute (2) Acute hypokalemia: Status: Acute (3) Hypomagnesemia: Status: Acute (4) Hypercalcemia: Status: Acute (5) Intractable nausea: Status: Acute (6) Adult failure to thrive: Status: Acute Plan Patient is a 74-year-old female with a past medical history significant for HTN, AFib on Xarelto, GERD, polycythemia vera on hydroxyurea, who presented to the ED due to decreased appetite for the past few months a significant weight loss of reported 70 lb over the last few months, nausea, vomiting and weakness. Abdominopelvic CT suggestive of colovesicular fistula secondary to untreated diverticulitis. Patient was started on Zosyn, UA with greater than 50 WBCs, patient asymptomatic. Electrolytes significant for hypomagnesemia and hypokalemia with bicarb of 17 and hyper calcemia. Colovesicular fistula - WBC 11.9, likely reactive, vital signs stable, lactic acid normal, no sepsis - abdominopelvic CT with prominent cholelithiasis with dilation of the gallbladder. Possible small fistulous tract from the bladder to the sigmoid colon without adjacent inflammatory change. This can be seen as a sequela of diverticulitis. No gas within the bladder. Mild bladder wall thickening accentuated by lack of distension, however mild cystitis as a possibility. Mild left-sided colonic wall thickening likely related to incomplete distention and muscular hypertrophy. Small hepatic hypodensity and small pancreatic hypodensities that are likely cysts. - UA with greater than 50 WBC, no bacteria, culture pending, patient asymptomatic - started on Zosyn in ED, continue - GI consult, patient followed by Dr. Craig - monitor CBC Persistent nausea and failure to thrive - patient unable to tolerate much p.o. x months - GI consultation as above Acute hypokalemia, hypomagnesemia and hypercalcemia - secondary to poor p.o. intake - given 20 mEq IV potassium - given 2 g IV Mag - 2 L NS - recheck BMP and Mag in the morning Incidental findings of hepatic hypodensity and small pancreatic hypodensities on CT - GI consult as above HTN - continue amlodipine, lisinopril, metoprolol Paroxysmal AFib - continue metoprolol, hold Xarelto pending GI consultation GERD - continue omeprazole 20 mg Polycythemia vera - continue hydroxyurea Full code VTE prophylaxis: Pneumoboots, resume Xarelto appropriate Patient with new finding possible colovesicular fistula with intractable nausea and failure to thrive, requiring admission for at least 2 midnights stay for further evaluation and treatment. Quality Stroke Does the patient have a stroke diagnosis?: No VTE Prior VTE?: No VTE Risk Level:: Medical - moderate - high VTE Device Contraindication: N/A - Device Ordered VTE Drug Contraindication: Treatment Not Indicated
[2024-05-10] MEDS: Piperacillin Sodium/Tazobactam 3.375 GM in 0.9 % Sodium Chloride 50 ML IV ×4 (04:03→20:19)
[2024-05-10 06:08] LABS: MANUAL DIFF FLAG NO
[2024-05-10 06:13] LABS: Basophils Percent Auto 0.3 % (0-2); Eosinophils Percent Auto 0.5 % (0-4); Hematocrit 33.9 % (37.0-47.0); Hemoglobin 11.9 g/dl (12.0-16.0); Imm Gran Abs Auto 0.07 X10*3/uL (0.00-0.03); Imm Gran Pct Auto 0.9 % (0.0-0.4); Lymphocytes Percent Auto 26.9 % (20-40); Mean Corpuscular HGB Conc 35.1 g/dl (31.0-35.0); Mean Corpuscular Hemoglobin 34.8 pg (27.0-33.0); Mean Corpuscular Volume 99.1 fL (80.0-98.0); Mean Platelet Volume 8.4 fL (9.4-12.3); Monocytes Absolute Auto 0.5 X10*3/uL (0.1-1.2); Monocytes Percent Auto 6.9 % (2-11); Neutrophils Absolute Auto 4.8 x10*3/uL (2.0-8.3); Neutrophils Percent Auto 64.5 % (45-73); Platelet Count 287 X10*3/uL (160-400); Red Blood Count 3.42 X10*6/uL (4.20-5.50); White Blood Count 7.4 X10*3/uL (4.8-10.8)
[2024-05-10 06:30] LABS: Anion Gap 14 (12-20); Blood Urea Nitrogen 13 mg/dL (9-16); Calcium 9.7 mg/dL (8.4-10.2); Carbon Dioxide 18 mmol/L (22-29); Chloride 109 mmol/L (96-108); Creatinine Clr Calc Pharmacy 49.4; Estimated Glomerular Filt Rate 55; Glucose Random 103 mg/dL (60-115); Magnesium 1.9 mg/dL (1.6-2.6); Sodium 138 mmol/L (135-145)
[2024-05-10] MEDS: Potassium Chloride/H20 10 MEQ/100 ML PIGGYBACK 100 MEQ IV ×4 (07:07→12:54)
--- NOTE | 2024-05-10 08:53 | PC.NURSE ---
Pt alert and oriented, breathing even and unlabored. Denying pain or complaints this morning. Potassium infusing per MAR due to low K. Pt has been NPO. Plan of care ongoing. Report to overflow, pt transferred.
[2024-05-10] MEDS: Metoprolol Succinate ER 25 MG TAB.ER.24H PO (09:29)
[2024-05-10] MEDS: amLODIPine Besylate 10 MG TABLET PO (09:29)
[2024-05-10] MEDS: Sertraline HCL 50 MG TABLET PO (09:29)
[2024-05-10] MEDS: lisinopriL 40 MG TABLET PO (10:55)
[2024-05-10] MEDS: Hydroxyurea 500 MG CAPSULE PO (10:55)
--- NOTE | 2024-05-10 11:00 | CONS_ITS ---
DATE OF SERVICE: 05/10/2024 REFERRING PHYSICIAN: Dr. Muhammad REASON FOR CONSULTATION: Abdominal pain with weight loss and abnormal CT scan suggesting colovesical fistula. HISTORY OF THE PRESENT ILLNESS: The patient is a pleasant 74-year-old woman with a history of diverticular disease, seen in consultation. She was admitted to the hospital after presenting to the emergency room yesterday with weight loss, anorexia, intermittent nausea and vomiting and general malaise. There were no fevers or chills and she underwent CT scanning in the emergency department, which was reviewed. This is interpreted as showing wall thickening of the left side of the colon and a possible small fistulous tract between the bladder and the sigmoid colon. She has been admitted to the hospital and started on antibiotics. Her last colonoscopy in 2021 showed a resolving colitis between 30 and 10 cm with erythema, edema, and loss of vascular pattern. Biopsies at that time were consistent with chronic active colitis, which was treated symptomatically. She was seen in followup earlier this month with similar complaints as her recent evaluation and the scheduled for upper endoscopy and colonoscopy in May. Laboratory studies obtained in the emergency department and CAT scan are reviewed. PAST MEDICAL HISTORY: 1. Hypertension. 2. Gastroesophageal reflux disease. 3. Uterine cancer. 4. Lyme disease. 5. Osteopenia. 6. Atrial fibrillation. 7. Colonoscopy as above. 8. Polycythemia vera. CURRENT MEDICATIONS: Include acetaminophen, amlodipine, hydroxyurea, lisinopril, metoprolol, omeprazole, Eliquis, sertraline, sulfamethoxazole, and temazepam. ALLERGIES: DIPHENHYDRAMINE. PAST SURGICAL HISTORY: Includes hysterectomy, section, appendectomy, knee replacement, and vein ligation. PHYSICAL EXAMINATION: GENERAL: Shows a pleasant female, lying comfortably in bed. VITAL SIGNS: Reviewed in electronic medical record and are stable. SKIN: Anicteric. HEENT: Shows no scleral icterus. NECK: Without lymphadenopathy or thyromegaly. LUNGS: Clear. HEART: Shows regular rate and rhythm. S1, S2. No murmur. ABDOMEN: Soft without focal masses or tenderness. Bowel sounds are present. No organomegaly is noted. EXTREMITIES: Without edema. LABORATORY DATA AND IMAGING STUDIES: Reviewed as above. IMPRESSION: Abdominal pain with nausea, vomiting, and abnormal CT scan. We discussed her symptoms today. I agree with symptomatic treatment for her upper GI symptoms with acid blockers and antiemetics. She appears to have changes consistent with a fistula on her CT scan and I agree with treating her with antibiotics as you are doing. I would obtain surgical consultation and monitor her clinically. She may require further evaluation with lower GI tract endoscopy. We discussed this today. Thanks for asking me to see her. I will follow her in the hospital with you. MD SPENCER Lin/[facility] / [phone]
--- NOTE | 2024-05-10 11:18 | P.PNIM_ITS ---
Subjective Subjective Date of Service: 05/10/24 Interval History: abd pain Physical Exam 2 Vital Signs: Vital Signs: Last Vital Signs Temp 97.7 F 05/10/24 09:17 Pulse 77 05/10/24 09:29 Resp 16 05/10/24 09:17 BP 159/95 H 05/10/24 10:55 Pulse Ox 98 05/10/24 09:17 O2 Del Method Room Air 05/10/24 09:17 BMI result Body Mass Index 24.9 General: AO X 3, no acute distress Resp: CTA bilateral, no accessory muscles used CVS: S1,S2,RRR GI: soft, LLQ tender, non distended Neuro: motor grossly intact, alert Psych: appropriate affect, appropriate insight Objective Data Active Medications Acetaminophen (Acetaminophen 325 Mg Tablet) 975 mg PO Q6H PRN PRN Reason: Pain, Mild 1-3,fever,headache Amlodipine Besylate (Amlodipine Besylate 10 Mg Tablet) 10 mg PO DAILY [facility]; Protocol Last Admin: 05/10/24 09:29 Dose: 10 mg Documented By: BIRGIT Calcium Carbonate (Calcium Carbonate 750 Mg Tab.Chew) 750 mg PO Q4H PRN PRN Reason: Heartburn Hydroxyurea (Hydroxyurea 500 Mg Capsule) 500 mg PO DAILY [facility] Last Admin: 05/10/24 10:55 Dose: 500 mg Documented By: KELLY Piperacillin Sod/Tazobactam (Sod 3.375 gm/ Sodium Chloride) 50 mls @ 100 mls/hr IV Q6H [facility] Last Infusion: 05/10/24 10:06 Dose: Infused Documented By: BIRGIT Lisinopril (Lisinopril 40 Mg Tablet) 40 mg PO DAILY [facility]; Protocol Last Admin: 05/10/24 10:55 Dose: 40 mg Documented By: KELLY Magnesium Hydroxide (Milk Of Magnesia 30 Ml Oral.Susp) 30 ml PO DAILY PRN PRN Reason: Constipation Melatonin (Melatonin 3 Mg Tablet) 6 mg PO BEDTIME PRN PRN Reason: Insomnia Metoprolol Succinate (Metoprolol Succinate Er 25 Mg Tab.Er.24h) 25 mg PO DAILY [facility]; Protocol Last Admin: 05/10/24 09:29 Dose: 25 mg Documented By: BIRGIT Morphine Sulfate (Morphine Sulfate 4 Mg/Ml Cartridge) 2 mg IVPUSH Q4H PRN; Protocol PRN Reason: Pain, Severe (Pain Scale 7-10) Omeprazole (Omeprazole 20 Mg Capsule.Dr) 20 mg PO DAILY PRN PRN Reason: Heartburn Ondansetron HCl (Ondansetron Hcl 4 Mg/2 Ml Vial) 4 mg IVPUSH Q8H PRN PRN Reason: Nausea and Vomiting Last Admin: 05/10/24 02:33 Dose: 4 mg Documented By: RESHMA Oxycodone HCl (Oxycodone Hcl Immed Release 5 Mg Tablet) 5 mg PO Q6H PRN PRN Reason: Pain, Moderate(Pain Scale 4-6) Sertraline HCl (Sertraline Hcl 50 Mg Tablet) 50 mg PO DAILY [facility] Last Admin: 05/10/24 09:29 Dose: 50 mg Documented By: BIRGIT Sodium Chloride (0.9 % Sodium Chloride Flush 3 Ml Syringe) 3 ml IVFLUSH QSHIFT [facility] Last Admin: 05/10/24 07:07 Dose: 3 ml Documented By: GERALDINE Labs 05/10/24 05:36 05/10/24 05:36 Labs: Laboratory Results - last 24 hr 05/09/24 05/09/24 05/09/24 14:36 18:38 20:19 MCV 99.8 H MCH 34.3 H MCHC 34.4 RDW 15.9 Plt Count 398 D MPV 8.3 L Immature Gran % (Auto) 0.8 H Neut % (Auto) 75.6 H Lymph % (Auto) 17.0 L [place] % (Auto) 6.1 Eos % (Auto) 0.1 Baso % (Auto) 0.4 Lymph # (Auto) 2.0 [place] # (Auto) 0.7 Eos # (Auto) 0.0 Baso # (Auto) 0.1 Abs Immat Gran (auto) 0.10 H Absolute Neuts (auto) 9.0 H Absolute Nucleated RBC 0.000 Nucleated RBC % (auto) 0.0 Anion Gap 18 Estim Creat Clear Calc 44.9 Estimated GFR 49 Random Glucose 139 H Lactic Acid 1.7 Calcium 11.3 H D Magnesium 1.5 L Total Bilirubin 1.5 H AST 20 ALT 12 Alkaline Phosphatase 53 Total Protein 6.6 Albumin 3.6 Lipase 6 L TSH 1.76 Urine Color Dark Yellow Urine Appearance Cloudy Urine pH 6.0 Ur Specific [place] >= 1.030 H Urine Protein Negative Urine Glucose (UA) Negative Urine Ketones 40 Urine Blood Negative Urine Nitrite Positive H Ur Leukocyte Esterase Moderate (2+) H Urine RBC 0-2 Urine WBC >50 H Ur Squamous Epith Cells 6-10 Urine Bacteria None Seen Hyaline Casts 6-10 Influenza Type A (PCR) NEGATIVE Influenza Type B (PCR) NEGATIVE RSV RNA Qual (PCR) NEGATIVE SARS-CoV-2 RNA (RT-PCR) NEGATIVE 05/10/24 05:36 MCV 99.1 H MCH 34.8 H MCHC 35.1 H RDW 16.0 Plt Count 287 D MPV 8.4 L Immature Gran % (Auto) 0.9 H Neut % (Auto) 64.5 Lymph % (Auto) 26.9 [place] % (Auto) 6.9 Eos % (Auto) 0.5 Baso % (Auto) 0.3 Lymph # (Auto) 2.0 [place] # (Auto) 0.5 Eos # (Auto) 0.0 Baso # (Auto) 0.0 Abs Immat Gran (auto) 0.07 H Absolute Neuts (auto) 4.8 Absolute Nucleated RBC 0.000 Nucleated RBC % (auto) 0.0 Anion Gap 14 Estim Creat Clear Calc 49.4 Estimated GFR 55 Random Glucose 103 Lactic Acid Calcium 9.7 D Magnesium 1.9 Total Bilirubin AST ALT Alkaline Phosphatase Total Protein Albumin Lipase TSH Urine Color Urine Appearance Urine pH Ur Specific [place] Urine Protein Urine Glucose (UA) Urine Ketones Urine Blood Urine Nitrite Ur Leukocyte Esterase Urine RBC Urine WBC Ur Squamous Epith Cells Urine Bacteria Hyaline Casts Influenza Type A (PCR) Influenza Type B (PCR) RSV RNA Qual (PCR) SARS-CoV-2 RNA (RT-PCR) Assessment and Plan (1) Paroxysmal atrial fibrillation: Status: Acute Plan 74F PMH hypertension paroxysmal AFib, GERD, polycythemia vera presented with abdominal pain and weight loss found to have diverticulitis with possible colovesicular fistula and positive UA Acute diverticulitis with colovesicular fistula and UTI complicated by moderate protein calorie malnutrition and weight loss Continue Zosyn, follow up surgery Acute hypokalemia, hypomagnesemia Replace and monitor Hypertension Amlodipine, lisinopril, metoprolol Paroxysmal AFib Continue metoprolol, Xarelto on hold for possible surgical intervention Polycythemia vera Hydroxyurea DVT prophylaxis - mechanical, resume Xarelto if no surgery planned Full code reason for continued hospitalization: IV antibiotics Quality Stroke Does the patient have a stroke diagnosis?: No VTE Prior VTE?: No VTE Risk Level:: Medical - moderate - high VTE Device Contraindication: N/A - Device Ordered VTE Drug Contraindication: Treatment Not Indicated
--- NOTE | 2024-05-10 14:35 | PM.CNGS ---
History of Present Illness Consult details Consult date: 05/10/24 <Tiffanie Rios PA-C - Last Filed: 05/14/24 10:35> Requesting physician: Rafita Muhammad <LELAND Jacob Last Filed: 05/14/24 10:35> Narrative: Dunia Elliott is a 74-year-old female with PMH signficant for HTN, AFib on Xarelto, GERD, polycythemia vera on hydroxyurea who presented to the ED with complaints of poor oral intake with significant weight loss and fatigue. She reports a decreased appetite for the past few months associated with nausea, vomiting and weakness. She denies fevers, chills, abdominal pain, hematemesis, melena, hematochezia, change in stools. She does report a UTI for which she has had multiple antibiotic courses for without resolution. She denies fecaluria or pneumoturia. Her last colonoscopy was in 2021 showed a resolving colitis between 30 and 10 cm treated symptomatically. She was seen by GI earlier this month and was scheduled to undergo upper endoscopy and colonoscopy in May. Work up in the ED included CBC, BMP which was significant for a mild leukotycosis. CT scan abd pelvis was performed which demonstrated mild left-sided colonic wall thickening with possible small fistulous tract from the bladder to the sigmoid colon without adjacent inflammatory change, mild bladder wall thickening however no gas within the bladder. UA suggestive of UTI. She has had multiple abd surgeries including c sections, hysterectomy, appendectomy. <Tiffanie Rios PA-C - Last Filed: 05/14/24 10:35> Review of Systems Constitutional: Constitutional: Denies chills, Reports fatigue and Denies fever(s) <LELAND Jacob Last Filed: 05/14/24 10:35> ENT: Denies dizziness <LELAND Jacob Last Filed: 05/14/24 10:35> Cardiovascular: Cardiovascular: Denies chest pain, Denies palpitations and Denies dyspnea <LELAND Jacob Last Filed: 05/14/24 10:35> Respiratory: Respiratory: Denies dyspnea <LELAND Jacob Last Filed: 05/14/24 10:35> Gastrointestinal: Gastrointestinal: Reports as per HPI <Tiffanie Rios PA-C Last Filed: 05/14/24 10:35> Genitourinary: Genitourinary: Reports as per HPI <Tiffanie Rios PA-C Last Filed: 05/14/24 10:35> Integumentary/Breasts: Skin/Breast: Denies rash and Denies jaundice <Tiffanie Rios PA-C Last Filed: 05/14/24 10:35> Neurologic: Denies dizziness <Tiffanie Rios PA-C Last Filed: 05/14/24 10:35> Endocrine: Endocrine: Reports fatigue and Denies palpitations <Tiffanie Rios PA-C Last Filed: 05/14/24 10:35> PMFSH Past Medical History Medical History: Medical History (Updated 05/11/24 @ 08:50 by Jah Adams MD) Polycythemia vera Postoperative nausea Osteopenia Hx of Lyme disease GERD (gastroesophageal reflux disease) Paroxysmal atrial fibrillation HTN (hypertension) Persistent atrial fibrillation <Tiffanie Rios PA-C Last Filed: 05/14/24 10:35> Family History Family History: Family History Father Cancer Stroke Mother Diabetes <Tiffanie Rios PA-C Last Filed: 05/14/24 10:35> Surgical History Surgical History: Surgical History Hx of section Hx of hysterectomy Hx of colonoscopy Hx of appendectomy <Tiffanie Rios PA-C Last Filed: 05/14/24 10:35> Social History Social History: Social History Household Members: None Housing: Condominium 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 ( with Alzheimer's and Parkinson's) Do you presently have visiting nurse or other home services: No Patient Tobacco Use Status: Never used Tobacco Advance Directives Date on File: 03/11/21 service: No <Tiffanie Rios PA-C - Last Filed: 05/14/24 10:35> Meds Allergies/Adverse reactions: Allergies Allergy/AdvReac Type Severity Reaction Status Date / Time diphenhydramine AdvReac Anxiety Verified 05/09/24 14:25 <Tiffanie Rios PA-C - Last Filed: 05/14/24 10:35> Active Medications: Current Medications Acetaminophen (Acetaminophen 325 Mg Tablet) 975 mg PO Q6H PRN PRN Reason: Pain, Mild 1-3,fever,headache Amlodipine Besylate (Amlodipine Besylate 10 Mg Tablet) 10 mg PO DAILY [facility]; Protocol Last Admin: 05/10/24 09:29 Dose: 10 mg Calcium Carbonate (Calcium Carbonate 750 Mg Tab.Chew) 750 mg PO Q4H PRN PRN Reason: Heartburn Hydroxyurea (Hydroxyurea 500 Mg Capsule) 500 mg PO DAILY [facility] Last Admin: 05/10/24 10:55 Dose: 500 mg Piperacillin Sod/Tazobactam (Sod 3.375 gm/ Sodium Chloride) 50 mls @ 100 mls/hr IV Q6H [facility] Last Infusion: 05/10/24 10:06 Dose: Infused Lisinopril (Lisinopril 40 Mg Tablet) 40 mg PO DAILY [facility]; Protocol Last Admin: 05/10/24 10:55 Dose: 40 mg Magnesium Hydroxide (Milk Of Magnesia 30 Ml Oral.Susp) 30 ml PO DAILY PRN PRN Reason: Constipation Melatonin (Melatonin 3 Mg Tablet) 6 mg PO BEDTIME PRN PRN Reason: Insomnia Metoprolol Succinate (Metoprolol Succinate Er 25 Mg Tab.Er.24h) 25 mg PO DAILY [facility]; Protocol Last Admin: 05/10/24 09:29 Dose: 25 mg Morphine Sulfate (Morphine Sulfate 4 Mg/Ml Cartridge) 2 mg IVPUSH Q4H PRN; Protocol PRN Reason: Pain, Severe (Pain Scale 7-10) Omeprazole (Omeprazole 20 Mg Capsule.Dr) 20 mg PO DAILY PRN PRN Reason: Heartburn Ondansetron HCl (Ondansetron Hcl 4 Mg/2 Ml Vial) 4 mg IVPUSH Q8H PRN PRN Reason: Nausea and Vomiting Last Admin: 05/10/24 12:44 Dose: 4 mg Oxycodone HCl (Oxycodone Hcl Immed Release 5 Mg Tablet) 5 mg PO Q6H PRN PRN Reason: Pain, Moderate(Pain Scale 4-6) Sertraline HCl (Sertraline Hcl 50 Mg Tablet) 50 mg PO DAILY [facility] Last Admin: 05/10/24 09:29 Dose: 50 mg Sodium Chloride (0.9 % Sodium Chloride Flush 3 Ml Syringe) 3 ml IVFLUSH QSHIFT [facility] Last Admin: 05/10/24 07:07 Dose: 3 ml <LELAND Jacob Last Filed: 05/14/24 10:35> Home medications: Home Medications ?Medication ?Instructions ?Recorded ?Confirmed ?Last Taken ?Type amlodipine 10 mg tablet 10 mg PO DAILY 03/10/21 05/09/24 08/12/21 History lisinopril 40 mg tablet 40 mg PO DAILY 03/10/21 05/09/24 Unknown History omeprazole 20 mg capsule,delayed 20 mg PO DAILY PRN Heartburn 03/10/21 05/09/24 08/12/21 History release hydroxyurea 500 mg capsule 500 mg PO DAILY 10/25/23 05/09/24 Unknown History prochlorperazine maleate 5 mg 5 mg PO BID PRN Nausea And Vomiting 10/25/23 05/09/24 Unknown History tablet (Compazine) sertraline 50 mg tablet (Zoloft) 50 mg PO DAILY 10/25/23 05/09/24 Unknown History acetaminophen 325 mg tablet 975 mg PO Q8H PRN Pain 05/09/24 05/09/24 Unknown History temazepam 15 mg capsule 15 mg PO BEDTIME PRN Sleep 05/09/24 05/09/24 Unknown History <LELAND Jacob Last Filed: 05/14/24 10:35> Physical Exam Vital Signs: Vital Signs: Last Vital Signs Temp 98.3 F 05/10/24 12:33 Pulse 74 05/10/24 12:33 Resp 16 05/10/24 12:33 BP 169/80 H 05/10/24 12:33 Pulse Ox 99 05/10/24 12:33 O2 Del Method Room Air 05/10/24 12:33 BMI result Body Mass Index 27.1 <LELAND Jacob Last Filed: 05/14/24 10:35> Const: General: comfortable, no acute distress and alert <Tiffanie Ortegaau LELAND Parikh Last Filed: 05/14/24 10:35> Orientation/consciousness: patient oriented x3 <Tiffanie DavisdeauALANVeronica Parikh Last Filed: 05/14/24 10:35> Resp: Effort & Inspection: normal respiratory effort <Tiffanie Davisdeau LELAND Parikh Last Filed: 05/14/24 10:35> GI: Other: corpulent abdomen <Tiffanie DavisdeauALANVeronica Parikh Last Filed: 05/14/24 10:35> Inspection: Yes scar <Tiffanie Davisdeau LELAND Parikh Last Filed: 05/14/24 10:35> Palpation (GI): Soft to palpation, nontender, no guarding and not rigid <Tiffanie ChildressALAN lugoVeronica Parikh Last Filed: 05/14/24 10:35> Percussion: Yes normal to percussion <Tiffanie DavisALAN pritchettVeronica Parikh Last Filed: 05/14/24 10:35> Abdomen image: 1. midline scar <Tiffanie Davisdeau LELAND Parikh Last Filed: 05/14/24 10:35> Skin: General skin exam: no rashes or lesions noted and no jaundice <Tiffanie Childressbodeau LELAND Parikh Last Filed: 05/14/24 10:35> Neuro: General: patient oriented x3 and moves all extremities <Tiffanie Childressbrittney LELAND Parikh Last Filed: 05/14/24 10:35> Results Labs Result diagrams: 05/13/24 09:25 05/13/24 09:25 <Tiffanie Childressbrittney LELAND Parikh Last Filed: 05/14/24 10:35> Labs: Abnormal lab results 05/09/24 05/09/24 05/10/24 Range/Units 14:36 20:19 05:36 WBC 11.9 H (4.8-10.8) X10*3/uL RBC 4.05 L D 3.42 L (4.20-5.50) X10*6/uL Hgb 11.9 L (12.0-16.0) g/dl Hct 33.9 L (37.0-47.0) % MCV 99.8 H 99.1 H (80.0-98.0) fL MCH 34.3 H 34.8 H (27.0-33.0) pg MCHC 35.1 H (31.0-35.0) g/dl MPV 8.3 L 8.4 L (9.4-12.3) fL Immature Gran % (Auto) 0.8 H 0.9 H (0.0-0.4) % Neut % (Auto) 75.6 H (45-73) % Lymph % (Auto) 17.0 L (20-40) % Abs Immat Gran (auto) 0.10 H 0.07 H (0.00-0.03) X10*3/uL Absolute Neuts (auto) 9.0 H (2.0-8.3) x10*3/uL Potassium 3.0 L 3.0 L (3.3-5.1) mmol/L Chloride 109 H (96-108) mmol/L Carbon Dioxide 17 L 18 L (22-29) mmol/L BUN 19 H (9-16) mg/dL Random Glucose 139 H (60-115) mg/dL Calcium 11.3 H D (8.4-10.2) mg/dL Magnesium 1.5 L (1.6-2.6) mg/dL Total Bilirubin 1.5 H (0.0-1.0) mg/dL Lipase 6 L (8-78) U/L Ur Specific [place] >= 1.030 H (1.005-1.025) Urine Nitrite Positive H (Negative) Ur Leukocyte Esterase Moderate (2+) H (Negative) Urine WBC >50 H (0-5) /HPF Short CBC 05/09/24 05/10/24 Range/Units 14:36 05:36 WBC 11.9 H 7.4 (4.8-10.8) X10*3/uL Hgb 13.9 11.9 L (12.0-16.0) g/dl Hct 40.4 33.9 L (37.0-47.0) % Plt Count 398 D 287 D (160-400) X10*3/uL BMP 05/09/24 05/10/24 14:36 05:36 Sodium 137 138 Potassium 3.0 L 3.0 L Chloride 105 109 H Carbon Dioxide 17 L 18 L BUN 19 H 13 Creatinine 1.10 1.00 Calcium 11.3 H D 9.7 D Liver Function 05/09/24 Range/Units 14:36 Total Bilirubin 1.5 H (0.0-1.0) mg/dL AST 20 (5-31) U/L ALT 12 (0-31) U/L Alkaline Phosphatase 53 (39-117) U/L Albumin 3.6 (3.5-5.0) g/dL Urine 05/09/24 Range/Units 20:19 Urine Color Dark Yellow Urine Appearance Cloudy Urine pH 6.0 (5.0-9.0) Ur Specific [place] >= 1.030 H (1.005-1.025) Urine Protein Negative (Neg-Trace) mg/dL Urine Glucose (UA) Negative (Negative) mg/dL All other labs normal. <Tiffanie Rios PA-C - Last Filed: 05/14/24 10:35> Imaging Abdomen CT scan report/results: report reviewed and image reviewed <Tiffanie Rios PA-C - Last Filed: 05/14/24 10:35> Assessment and Plan (1) [place]-vesical fistula: Status: Acute <LELAND Jacob Last Filed: 05/14/24 10:35> (2) Diverticulitis large intestine: Status: Acute <Tiffanie Rios PA-C - Last Filed: 05/14/24 10:35> 74-year-old female with PMH signficant for HTN, AFib on Xarelto, GERD, polycythemia vera on hydroxyurea who presented to the ED with complaints of poor oral intake with significant weight loss and fatigue. She reports a decreased appetite for the past few months associated with nausea, vomiting and weakness. CT scan shows mild left-sided colonic wall thickening with possible small fistulous tract from the bladder to the sigmoid colon without adjacent inflammatory change, mild bladder wall thickening however no gas within the bladder. UA suggestive of UTI. 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 Will obtain urology consult to help evaluate prior to any planned resection. Cont IV abx for UTI. Ideally if fistula is present, would perform sigmoid resection after receiving bowel prep for primary anastomosis. Will continue to follow. <Tiffanie Rios PA-C - Last Filed: 05/14/24 10:35> 74-year-old female with PMH signficant for HTN, AFib on Xarelto, GERD, polycythemia vera on hydroxyurea who presented to the ED with complaints of poor oral intake with significant weight loss and fatigue. She reports a decreased appetite for the past few months associated with nausea, vomiting and weakness with a history of diverticular disease As noted above <Rancho Emerson MD - Last Filed: 05/10/24 14:54> Procedures Date of Service Date of Service: 05/14/24 <Tiffanie Rios PA-C - Last Filed: 05/14/24 10:35> 05/10/24 <Rancho Emerson MD - Last Filed: 05/10/24 14:54>
[2024-05-10] MEDS: Omeprazole 20 MG CAPSULE.DR PO (17:50)
[2024-05-11] MEDS: Piperacillin Sodium/Tazobactam 3.375 GM in 0.9 % Sodium Chloride 50 ML IV ×4 (03:09→21:03)
[2024-05-11 03:28] VITALS: BP 134/73; PULSE 65; RESP 18; TEMP 36.5; O2SAT 100
[2024-05-11 06:52] LABS: MANUAL DIFF FLAG NO
[2024-05-11 07:11] VITALS: BP 137/66; PULSE 65; RESP 16; TEMP 36.7; O2SAT 98
[2024-05-11 07:14] LABS: Anion Gap 11 (12-20); Blood Urea Nitrogen 10 mg/dL (9-16); Calcium 9.4 mg/dL (8.4-10.2); Carbon Dioxide 20 mmol/L (22-29); Chloride 107 mmol/L (96-108); Creatinine Clr Calc Pharmacy 61.6; Estimated Glomerular Filt Rate > 60; Glucose Random 90 mg/dL (60-115); Magnesium 1.6 mg/dL (1.6-2.6); Potassium 3.3 mmol/L (3.3-5.1); Sodium 135 mmol/L (135-145)
[2024-05-11 07:19] LABS: Basophils Percent Auto 0.4 % (0-2); Eosinophils Absolute Auto 0.1 X10*3/uL (0.0-0.4); Eosinophils Percent Auto 0.9 % (0-4); Hematocrit 34.2 % (37.0-47.0); Hemoglobin 11.6 g/dl (12.0-16.0); Imm Gran Abs Auto 0.05 X10*3/uL (0.00-0.03); Imm Gran Pct Auto 0.7 % (0.0-0.4); Lymphocytes Absolute Auto 1.8 X10*3/uL (1.2-4.9); Lymphocytes Percent Auto 27.3 % (20-40); Mean Corpuscular HGB Conc 33.9 g/dl (31.0-35.0); Mean Corpuscular Hemoglobin 34.5 pg (27.0-33.0); Mean Corpuscular Volume 101.8 fL (80.0-98.0); Mean Platelet Volume 8.4 fL (9.4-12.3); Monocytes Absolute Auto 0.4 X10*3/uL (0.1-1.2); Monocytes Percent Auto 6.6 % (2-11); Neutrophils Absolute Auto 4.3 x10*3/uL (2.0-8.3); Neutrophils Percent Auto 64.1 % (45-73); Platelet Count 279 X10*3/uL (160-400); Red Blood Count 3.36 X10*6/uL (4.20-5.50); Red Cell Distribution Width 15.9 % (11.0-16.0); White Blood Count 6.7 X10*3/uL (4.8-10.8)
[2024-05-11] MEDS: Magnesium Sulfate/H2O 2 GM/50 ML PIGGYBACK IV (08:07)
[2024-05-11] MEDS: Metoprolol Succinate ER 25 MG TAB.ER.24H PO (08:10)
[2024-05-11] MEDS: Sennosides 8.6 MG TABLET 17.2 MG PO (08:10)
[2024-05-11] MEDS: amLODIPine Besylate 10 MG TABLET PO (08:10)
[2024-05-11] MEDS: lisinopriL 40 MG TABLET PO (08:10)
[2024-05-11] MEDS: Sertraline HCL 50 MG TABLET PO (08:10)
[2024-05-11] MEDS: Potassium Chloride ER 20 MEQ TAB.ER.PRT 40 MEQ PO (08:10)
--- NOTE | 2024-05-11 08:44 | PM.UROCN ---
History of Present Illness Consult details Consult date: 05/11/24 Narrative: 74-year-old female with a past medical history significant for HTN, AFib on Xarelto, GERD, polycythemia vera on hydroxyurea, who presented to the ED due to decreased appetite for the past few months a significant weight loss of reported 70 lb over the last few months, nausea, vomiting and weakness. The patient reports that last month she was having abdominal pain and had an abdominopelvic CT by her PCP and was diagnosed with diverticulitis but was not treated with any antibiotics. Called to evaluate due to possible colovesical fistula. Pt evaluated by Gen Surgery. CTAP: mild nonspecific wall thickening of the left-sided colon. There is a possible small fistulous tract between the left aspect of the bladder and sigmoid colon. bladder wall thickening. 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 at 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: Yes ( with Alzheimer's and Parkinson's) Do you presently have visiting nurse or other home services: No Patient Tobacco Use Status: Never used Tobacco Advance Directives Date on File: 03/11/21 service: No Meds Allergies Allergy/AdvReac Type Severity Reaction Status Date / Time diphenhydramine AdvReac Anxiety Verified 05/09/24 14:25 Active Medications: Current Medications Acetaminophen (Acetaminophen 325 Mg Tablet) 975 mg PO Q6H PRN PRN Reason: Pain, Mild 1-3,fever,headache Amlodipine Besylate (Amlodipine Besylate 10 Mg Tablet) 10 mg PO DAILY [facility]; Protocol Last Admin: 05/11/24 08:10 Dose: 10 mg Calcium Carbonate (Calcium Carbonate 750 Mg Tab.Chew) 750 mg PO Q4H PRN PRN Reason: Heartburn Hydroxyurea (Hydroxyurea 500 Mg Capsule) 500 mg PO DAILY [facility] Last Admin: 05/11/24 07:43 Dose: Not Given Piperacillin Sod/Tazobactam (Sod 3.375 gm/ Sodium Chloride) 50 mls @ 100 mls/hr IV Q6H [facility] Last Infusion: 05/11/24 08:42 Dose: Infused Magnesium Sulfate (Magnesium Sulfate/H2o) 2 gm in 50 mls @ 25 mls/hr IV ONCE ONE Stop: 05/11/24 09:17 Last Admin: 05/11/24 08:07 Dose: 25 mls/hr Lisinopril (Lisinopril 40 Mg Tablet) 40 mg PO DAILY [facility]; Protocol Last Admin: 05/11/24 08:10 Dose: 40 mg Magnesium Hydroxide (Milk Of Magnesia 30 Ml Oral.Susp) 30 ml PO DAILY PRN PRN Reason: Constipation Melatonin (Melatonin 3 Mg Tablet) 6 mg PO BEDTIME PRN PRN Reason: Insomnia Metoprolol Succinate (Metoprolol Succinate Er 25 Mg Tab.Er.24h) 25 mg PO DAILY [facility]; Protocol Last Admin: 05/11/24 08:10 Dose: 25 mg Morphine Sulfate (Morphine Sulfate 4 Mg/Ml Cartridge) 2 mg IVPUSH Q4H PRN; Protocol PRN Reason: Pain, Severe (Pain Scale 7-10) Omeprazole (Omeprazole 20 Mg Capsule.Dr) 20 mg PO DAILY PRN PRN Reason: Heartburn Last Admin: 05/10/24 17:50 Dose: 20 mg Ondansetron HCl (Ondansetron Hcl 4 Mg/2 Ml Vial) 4 mg IVPUSH Q8H PRN PRN Reason: Nausea and Vomiting Last Admin: 05/10/24 12:44 Dose: 4 mg Oxycodone HCl (Oxycodone Hcl Immed Release 5 Mg Tablet) 5 mg PO Q6H PRN PRN Reason: Pain, Moderate(Pain Scale 4-6) Senna (Sennosides 8.6 Mg Tablet) 17.2 mg PO BEDTIME PRN PRN Reason: Constipation Last Admin: 05/11/24 08:10 Dose: 8.6 mg Sertraline HCl (Sertraline Hcl 50 Mg Tablet) 50 mg PO DAILY [facility] Last Admin: 05/11/24 08:10 Dose: 50 mg Sodium Chloride (0.9 % Sodium Chloride Flush 3 Ml Syringe) 3 ml IVFLUSH QSHIFT [facility] Last Admin: 05/11/24 07:43 Dose: Not Given Home Medications ?Medication ?Instructions ?Recorded ?Confirmed ?Last Taken ?Type amlodipine 10 mg tablet 10 mg PO DAILY 03/10/21 05/09/24 08/12/21 History lisinopril 40 mg tablet 40 mg PO DAILY 03/10/21 05/09/24 Unknown History omeprazole 20 mg capsule,delayed 20 mg PO DAILY PRN Heartburn 03/10/21 05/09/24 08/12/21 History release hydroxyurea 500 mg capsule 500 mg PO DAILY 10/25/23 05/09/24 Unknown History prochlorperazine maleate 5 mg 5 mg PO BID PRN Nausea And Vomiting 10/25/23 05/09/24 Unknown History tablet (Compazine) sertraline 50 mg tablet (Zoloft) 50 mg PO DAILY 10/25/23 05/09/24 Unknown History acetaminophen 325 mg tablet 975 mg PO Q8H PRN Pain 05/09/24 05/09/24 Unknown History temazepam 15 mg capsule 15 mg PO BEDTIME PRN Sleep 05/09/24 05/09/24 Unknown History Physical Exam Vital Signs: Vital Signs: Last Vital Signs Temp 98.1 F 05/11/24 07:11 Pulse 65 05/11/24 07:11 Resp 16 05/11/24 07:11 BP 137/66 05/11/24 07:11 Pulse Ox 98 05/11/24 07:11 O2 Del Method Room Air 05/11/24 07:11 BMI result Body Mass Index 27.1 Results Labs 05/16/24 07:36 05/16/24 07:36 Labs: Abnormal lab results 05/11/24 Range/Units 06:49 RBC 3.36 L (4.20-5.50) X10*6/uL Hgb 11.6 L (12.0-16.0) g/dl Hct 34.2 L (37.0-47.0) % MCV 101.8 H (80.0-98.0) fL MCH 34.5 H (27.0-33.0) pg MPV 8.4 L (9.4-12.3) fL Immature Gran % (Auto) 0.7 H (0.0-0.4) % Abs Immat Gran (auto) 0.05 H (0.00-0.03) X10*3/uL Carbon Dioxide 20 L (22-29) mmol/L Anion Gap 11 L (12-20) Short CBC 05/11/24 Range/Units 06:49 WBC 6.7 (4.8-10.8) X10*3/uL Hgb 11.6 L (12.0-16.0) g/dl Hct 34.2 L (37.0-47.0) % Plt Count 279 (160-400) X10*3/uL BMP 05/11/24 06:49 Sodium 135 Potassium 3.3 Chloride 107 Carbon Dioxide 20 L BUN 10 Creatinine 0.89 Calcium 9.4 Urine 05/09/24 Range/Units 20:19 Urine Color Dark Yellow Urine Appearance Cloudy Urine pH 6.0 (5.0-9.0) Ur Specific [place] >= 1.030 H (1.005-1.025) Urine Protein Negative (Neg-Trace) mg/dL Urine Glucose (UA) Negative (Negative) mg/dL Imaging Additional studies: Date of Service: 05/09/24 CT of the abdomen and pelvis utilizing intravenous contrast. Comparison 03/28/2024. Findings: Superiorly in the liver there is an ill-defined 1.2 cm subtle hypodensity similar to previous that is technically indeterminate. There is prominent cholelithiasis. The gallbladder is dilated to just over 5 cm. No significant pericholecystic inflammatory changes. There is no hydronephrosis. Renal hypodensities are presumably cysts. The spleen is unremarkable. There is severe pancreatic atrophy. There are several small pancreatic hypodensities presumably representing cysts measuring up to 9 mm. No abdominal aortic aneurysm. The appendix is not definitely seen. There is no bowel obstruction. No definite diverticulitis is seen. There is mild nonspecific wall thickening of the left-sided colon. There is a possible small fistulous tract between the left aspect of the bladder and sigmoid colon. There are no significant adjacent inflammatory changes. There has been a hysterectomy. There is mild bladder wall thickening. This is nonspecific. There is moderate stool in the rectum. Impression: Prominent cholelithiasis with dilatation of the gallbladder. Consider follow-up if there is clinical concern for acute gallbladder disease. There is a possible small fistulous tract from the bladder to the sigmoid colon without adjacent inflammatory change. This can be seen as a sequela of diverticulitis. There is no gas within the bladder. There is mild bladder wall thickening accentuated by lack of distention however mild cystitis is a possibility. Mild left-sided colonic wall thickening likely related to incomplete distention and muscular hypertrophy. This is more pronounced in the sigmoid colon and technically indeterminate consider correlation with recent colonoscopy to exclude an underlying abnormality or follow-up if low-grade colitis is clinically a possibility. Small hepatic hypodensity is technically indeterminate. Small pancreatic hypodensities are likely cysts. Assessment and Plan (1) Cystitis: Status: Acute (2) Recurrent UTI: Status: Acute Plan Possible colovesical fistula Keep james in place Per Gen surgery regarding need for sigmoid resection, please communicate surgical plan so we can be available if needed In discussion with the patient she is considering conservative options of Abx therapy, and I explained benefit of james catheter to divert urine during the course of therapy. Procedures Date of Service Date of Service: 05/16/24
--- NOTE | 2024-05-11 08:52 | HO.PM.IMPN ---
Subjective Subjective Date of Service: 05/11/24 Interval History: abd pain improved Physical Exam Vital Signs: Vital Signs: Last Vital Signs Temp 98.1 F 05/11/24 07:11 Pulse 65 05/11/24 07:11 Resp 16 05/11/24 07:11 BP 137/66 05/11/24 07:11 Pulse Ox 98 05/11/24 07:11 O2 Del Method Room Air 05/11/24 07:11 BMI result Body Mass Index 27.1 General: AO X 3, no acute distress Resp: CTA bilateral, no accessory muscles used CVS: S1,S2,RRR GI: soft, non tender, non distended Neuro: motor grossly intact, alert Psych: appropriate affect, appropriate insight Objective Data Active Medications Acetaminophen (Acetaminophen 325 Mg Tablet) 975 mg PO Q6H PRN PRN Reason: Pain, Mild 1-3,fever,headache Amlodipine Besylate (Amlodipine Besylate 10 Mg Tablet) 10 mg PO DAILY [facility]; Protocol Last Admin: 05/11/24 08:10 Dose: 10 mg Documented By: IVANNA Calcium Carbonate (Calcium Carbonate 750 Mg Tab.Chew) 750 mg PO Q4H PRN PRN Reason: Heartburn Hydroxyurea (Hydroxyurea 500 Mg Capsule) 500 mg PO DAILY [facility] Last Admin: 05/11/24 07:43 Dose: Not Given Documented By: IVANNA Non-Admin Reason: Patient Refused Piperacillin Sod/Tazobactam (Sod 3.375 gm/ Sodium Chloride) 50 mls @ 100 mls/hr IV Q6H [facility] Last Infusion: 05/11/24 08:42 Dose: Infused Documented By: IVANNA Magnesium Sulfate (Magnesium Sulfate/H2o) 2 gm in 50 mls @ 25 mls/hr IV ONCE ONE Stop: 05/11/24 09:17 Last Admin: 05/11/24 08:07 Dose: 25 mls/hr Documented By: IVANNA Lisinopril (Lisinopril 40 Mg Tablet) 40 mg PO DAILY [facility]; Protocol Last Admin: 05/11/24 08:10 Dose: 40 mg Documented By: IVANNA Magnesium Hydroxide (Milk Of Magnesia 30 Ml Oral.Susp) 30 ml PO DAILY PRN PRN Reason: Constipation Melatonin (Melatonin 3 Mg Tablet) 6 mg PO BEDTIME PRN PRN Reason: Insomnia Metoprolol Succinate (Metoprolol Succinate Er 25 Mg Tab.Er.24h) 25 mg PO DAILY [facility]; Protocol Last Admin: 05/11/24 08:10 Dose: 25 mg Documented By: IVANNA Morphine Sulfate (Morphine Sulfate 4 Mg/Ml Cartridge) 2 mg IVPUSH Q4H PRN; Protocol PRN Reason: Pain, Severe (Pain Scale 7-10) Omeprazole (Omeprazole 20 Mg Capsule.Dr) 20 mg PO DAILY PRN PRN Reason: Heartburn Last Admin: 05/10/24 17:50 Dose: 20 mg Documented By: SUSIE Ondansetron HCl (Ondansetron Hcl 4 Mg/2 Ml Vial) 4 mg IVPUSH Q8H PRN PRN Reason: Nausea and Vomiting Last Admin: 05/10/24 12:44 Dose: 4 mg Documented By: SUSIE Oxycodone HCl (Oxycodone Hcl Immed Release 5 Mg Tablet) 5 mg PO Q6H PRN PRN Reason: Pain, Moderate(Pain Scale 4-6) Senna (Sennosides 8.6 Mg Tablet) 17.2 mg PO BEDTIME PRN PRN Reason: Constipation Last Admin: 05/11/24 08:10 Dose: 8.6 mg Documented By: IVANNA Comments: pt requested one tablet Sertraline HCl (Sertraline Hcl 50 Mg Tablet) 50 mg PO DAILY [facility] Last Admin: 05/11/24 08:10 Dose: 50 mg Documented By: IVANNA Sodium Chloride (0.9 % Sodium Chloride Flush 3 Ml Syringe) 3 ml IVFLUSH QSHIFT [facility] Last Admin: 05/11/24 07:43 Dose: Not Given Documented By: IVANNA Non-Admin Reason: IV Running Labs 05/11/24 06:49 05/11/24 06:49 Labs: Laboratory Results - last 24 hr 05/11/24 06:49 MCV 101.8 H MCH 34.5 H MCHC 33.9 RDW 15.9 Plt Count 279 MPV 8.4 L Immature Gran % (Auto) 0.7 H Neut % (Auto) 64.1 Lymph % (Auto) 27.3 [place] % (Auto) 6.6 Eos % (Auto) 0.9 Baso % (Auto) 0.4 Lymph # (Auto) 1.8 [place] # (Auto) 0.4 Eos # (Auto) 0.1 Baso # (Auto) 0.0 Abs Immat Gran (auto) 0.05 H Absolute Neuts (auto) 4.3 Absolute Nucleated RBC 0.000 Nucleated RBC % (auto) 0.0 Anion Gap 11 L Estim Creat Clear Calc 61.6 Estimated GFR > 60 Random Glucose 90 Calcium 9.4 Magnesium 1.6 Microbiology Microbiology Results: Microbiology 05/09/24 18:38 Blood Culture - Preliminary Blood - Venous No growth after 24 hours. 05/09/24 18:38 Blood Culture - Preliminary Blood - Venous No growth after 24 hours. 05/09/24 20:35 Urine Culture - Preliminary Urine clean catch - Clean Catch Midstream Culture too young to evaluate. Assessment and Plan (1) Paroxysmal atrial fibrillation: Status: Acute Plan 74F PMH hypertension paroxysmal AFib, GERD, polycythemia vera presented with abdominal pain and weight loss found to have diverticulitis with possible colovesicular fistula and positive UA Acute diverticulitis with colovesicular fistula and UTI complicated by moderate protein calorie malnutrition and weight loss Continue Zosyn, ?need for surgical intervention Acute hypokalemia, hypomagnesemia Replace and monitor Hypertension Amlodipine, lisinopril, metoprolol Paroxysmal AFib Continue metoprolol, Xarelto on hold for possible surgical intervention Polycythemia vera Hydroxyurea DVT prophylaxis - mechanical, resume Xarelto if no surgery planned Full code reason for continued hospitalization: IV antibiotics Quality Stroke Does the patient have a stroke diagnosis?: No VTE Prior VTE?: No VTE Risk Level:: Medical - moderate - high VTE Device Contraindication: N/A - Device Ordered VTE Drug Contraindication: Treatment Not Indicated
--- NOTE | 2024-05-11 12:59 | MHC.CM.PN ---
pt lives alone has no services is independent dc plan home no services
[2024-05-11 13:19] VITALS: BMI 27.1
--- NOTE | 2024-05-11 13:24 | PM.PNGS ---
Subjective Subjective Date of Service: 05/11/24 Interval history: Uneventful evening. Patient had having any abdominal symptoms. Still being treated for UTI. Diverticular disease findings and colovesicular fistula issues were once again reviewed with the patient. At present, she wishes to discuss the case with Dr. Craig for considering any surgical interventions. Physical Exam Vital Signs: Vital Signs: Last Vital Signs Temp 98.1 F 05/11/24 07:11 Pulse 65 05/11/24 07:11 Resp 16 05/11/24 07:11 BP 137/66 05/11/24 07:11 Pulse Ox 98 05/11/24 07:11 O2 Del Method Room Air 05/11/24 07:11 BMI result Body Mass Index 27.1 GI: Other: Abdomen is soft, corpulent, benign Objective Data Active Medications Acetaminophen (Acetaminophen 325 Mg Tablet) 975 mg PO Q6H PRN PRN Reason: Pain, Mild 1-3,fever,headache Amlodipine Besylate (Amlodipine Besylate 10 Mg Tablet) 10 mg PO DAILY [facility]; Protocol Last Admin: 05/11/24 08:10 Dose: 10 mg Documented By: IVANNA Calcium Carbonate (Calcium Carbonate 750 Mg Tab.Chew) 750 mg PO Q4H PRN PRN Reason: Heartburn Hydroxyurea (Hydroxyurea 500 Mg Capsule) 500 mg PO DAILY [facility] Last Admin: 05/11/24 07:43 Dose: Not Given Documented By: IVANNA Non-Admin Reason: Patient Refused Piperacillin Sod/Tazobactam (Sod 3.375 gm/ Sodium Chloride) 50 mls @ 100 mls/hr IV Q6H [facility] Last Infusion: 05/11/24 08:42 Dose: Infused Documented By: IVANNA Lisinopril (Lisinopril 40 Mg Tablet) 40 mg PO DAILY [facility]; Protocol Last Admin: 05/11/24 08:10 Dose: 40 mg Documented By: IVANNA Magnesium Hydroxide (Milk Of Magnesia 30 Ml Oral.Susp) 30 ml PO DAILY PRN PRN Reason: Constipation Melatonin (Melatonin 3 Mg Tablet) 6 mg PO BEDTIME PRN PRN Reason: Insomnia Metoprolol Succinate (Metoprolol Succinate Er 25 Mg Tab.Er.24h) 25 mg PO DAILY [facility]; Protocol Last Admin: 05/11/24 08:10 Dose: 25 mg Documented By: IVANNA Morphine Sulfate (Morphine Sulfate 4 Mg/Ml Cartridge) 2 mg IVPUSH Q4H PRN; Protocol PRN Reason: Pain, Severe (Pain Scale 7-10) Omeprazole (Omeprazole 20 Mg Capsule.Dr) 20 mg PO DAILY PRN PRN Reason: Heartburn Last Admin: 05/10/24 17:50 Dose: 20 mg Documented By: SUSIE Ondansetron HCl (Ondansetron Hcl 4 Mg/2 Ml Vial) 4 mg IVPUSH Q8H PRN PRN Reason: Nausea and Vomiting Last Admin: 05/10/24 12:44 Dose: 4 mg Documented By: SUSIE Oxycodone HCl (Oxycodone Hcl Immed Release 5 Mg Tablet) 5 mg PO Q6H PRN PRN Reason: Pain, Moderate(Pain Scale 4-6) Senna (Sennosides 8.6 Mg Tablet) 17.2 mg PO BEDTIME PRN PRN Reason: Constipation Last Admin: 05/11/24 08:10 Dose: 8.6 mg Documented By: IVANNA Comments: pt requested one tablet Sertraline HCl (Sertraline Hcl 50 Mg Tablet) 50 mg PO DAILY [facility] Last Admin: 05/11/24 08:10 Dose: 50 mg Documented By: IVANNA Sodium Chloride (0.9 % Sodium Chloride Flush 3 Ml Syringe) [facility] Last Admin: 05/11/24 07:43 Dose: Not Given Documented By: IVANNA Non-Admin Reason: IV Running Labs 05/11/24 06:49 05/11/24 06:49 Labs: Laboratory Results - last 24 hr 05/11/24 06:49 MCV 101.8 H MCH 34.5 H MCHC 33.9 RDW 15.9 Plt Count 279 MPV 8.4 L Immature Gran % (Auto) 0.7 H Neut % (Auto) 64.1 Lymph % (Auto) 27.3 [place] % (Auto) 6.6 Eos % (Auto) 0.9 Baso % (Auto) 0.4 Lymph # (Auto) 1.8 [place] # (Auto) 0.4 Eos # (Auto) 0.1 Baso # (Auto) 0.0 Abs Immat Gran (auto) 0.05 H Absolute Neuts (auto) 4.3 Absolute Nucleated RBC 0.000 Nucleated RBC % (auto) 0.0 Anion Gap 11 L Estim Creat Clear Calc 61.6 Estimated GFR > 60 Random Glucose 90 Calcium 9.4 Magnesium 1.6 Microbiology Microbiology Results: Microbiology 05/09/24 20:35 Urine Culture - Final Urine clean catch - Clean Catch Midstream 05/09/24 18:38 Blood Culture - Preliminary Blood - Venous No growth after 24 hours. 05/09/24 18:38 Blood Culture - Preliminary Blood - Venous No growth after 24 hours. Procedures Date of Service Date of Service: 05/11/24 Progress Note: A&P Assessment and plan (1) [place]-vesical fistula: Status: Acute (2) Recurrent UTI: Status: Acute Plan Continue current plan, IV antibiotics, diet as tolerated, out of bed, incentive spirometry. To follow with you. Time Spent With Patient Time: Total time managing care of this patient today ____ minutes. Quality Stroke Does the patient have a stroke diagnosis?: No VTE Prior VTE?: No VTE Risk Level:: Medical - moderate - high VTE Device Contraindication: N/A - Device Ordered VTE Drug Contraindication: Treatment Not Indicated
--- NOTE | 2024-05-11 13:30 | MHC.CLN ---
Addendum entered by Kiera Jaramillo, PHILIPP 05/11/24 16:24: DIET ADVANCED TO REGULAR. PATIENT DOES NOT WANT SUPPLEMENT. DISCUSSED ORDERING OTHER HIGHER CALORIE ITEMS SUCH ICE CREAM AND PUDDING. Original Note: NUTRITION DIET=CLEAR LIQUIDS. PATIENT WITH COLOVESICAL FISTULA. QUALIFIES MODERATELY MALNOURISHED IN THE CONTEXT OF CHRONIC ILLNESS. DECREASED INTAKE AND APPETITE >30 DAYS; SIGNIFICANT WEIGHT LOSS -22% X 6 MONTHS. FOLLOW FOR DIET ADVANCEMENT. CONSIDER ALTERNATE NUTRITION IF UNABLE TO TOLERATE PO. SEE CLINICAL NUTRITION ASSESSMENT 05/11/24.
--- NOTE | 2024-05-11 13:50 | PM.GIPN ---
Subjective Subjective Date of Service: 05/11/24 Interval History: no abd pain Critical Care Time (minutes): 0 Physical Exam Vital Signs: Vital Signs: Last Vital Signs Temp 98.1 F 05/11/24 07:11 Pulse 65 05/11/24 07:11 Resp 16 05/11/24 07:11 BP 137/66 05/11/24 07:11 Pulse Ox 98 05/11/24 07:11 O2 Del Method Room Air 05/11/24 07:11 BMI result Body Mass Index 27.1 GI: Other: abdomen is soft and nontender Objective Data Labs 05/11/24 06:49 05/11/24 06:49 Labs: Laboratory Results - last 24 hr 05/11/24 06:49 WBC 6.7 RBC 3.36 L Hgb 11.6 L Hct 34.2 L MCV 101.8 H MCH 34.5 H MCHC 33.9 RDW 15.9 Plt Count 279 MPV 8.4 L Immature Gran % (Auto) 0.7 H Neut % (Auto) 64.1 Lymph % (Auto) 27.3 [place] % (Auto) 6.6 Eos % (Auto) 0.9 Baso % (Auto) 0.4 Lymph # (Auto) 1.8 [place] # (Auto) 0.4 Eos # (Auto) 0.1 Baso # (Auto) 0.0 Abs Immat Gran (auto) 0.05 H Absolute Neuts (auto) 4.3 Absolute Nucleated RBC 0.000 Nucleated RBC % (auto) 0.0 Sodium 135 Potassium 3.3 Chloride 107 Carbon Dioxide 20 L Anion Gap 11 L BUN 10 Creatinine 0.89 Estim Creat Clear Calc 61.6 Estimated GFR > 60 Random Glucose 90 Calcium 9.4 Magnesium 1.6 Microbiology Microbiology Results: Microbiology 05/09/24 20:35 Urine clean catch - Clean Catch Midstream Urine Culture - Final 05/09/24 18:38 Blood - Venous Blood Culture - Preliminary No growth after 24 hours. 05/09/24 18:38 Blood - Venous Blood Culture - Preliminary No growth after 24 hours. Procedures Date of Service Date of Service: 05/11/24 Progress Note: A&P Assessment and plan (1) [place]-vesical fistula: Status: Acute Assessment and Plan: stable on abx pt requesting 2nd opinion re surgery advance diet Time Spent With Patient Time: Total time managing care of this patient today ____ minutes. Quality Stroke Does the patient have a stroke diagnosis?: No VTE Prior VTE?: No VTE Risk Level:: Medical - moderate - high VTE Device Contraindication: N/A - Device Ordered VTE Drug Contraindication: Treatment Not Indicated
--- NOTE | 2024-05-11 14:26 | PM.EVENT ---
Event Note Date of Service: 05/11/24 Event Note: Asked to see patient has a 2nd opinion regarding colovesical fistula. 74-year-old female patient complaining of ongoing weight loss, anorexia of at least 60 lb. Patient reports some nausea with only a single episode of vomiting. She has regular bowel movements which tend to be loose but not diarrhea. She denies bloody bowel movements unless her hemorrhoids are acting up. She denies abdominal pain or bloating. She also denies pneumaturia and fecaluria. She has had multiple urinary tract infections and cystitis going back many years. She is status post hysterectomy approximately 15 years ago. She was recently diagnosed with polycythemia vera in his being treated at [place]. Laboratories on admission revealed an elevated WBC of 11.9 recurrent WBC is normal. Her platelet count is 279. Urinalysis reveals greater than 50 WBCs and 2+ leuk esterase. A CT abdomen and pelvis was reviewed. This reveals a possible small fistulous tract between the sigmoid colon and bladder. Of note there was no air in the bladder. Examination: Temp 98.1 degrees, BP 137/66, pulse 65 Alert and oriented x3, no acute distress Abdomen is soft, nondistended, nontender without rebound, guarding or rigidity. No palpable mass. Well-healed midline incision in the lower abdomen CT abdomen and pelvis: Impression: Possible colovesical fistula with a long thin track. Of interest the tract does not contain any air, nor does the bladder. There is some thickening of the bladder wall on the left side which may indicate inflammatory changes from fistula versus adhesions from prior surgery. With the exception of the repeated urinary tract infections, the patient has no other symptoms suggestive of a colovesical fistula including pneumaturia or fecaluria. Urologic intervention for cystoscopy or cystogram may be helpful for the diagnosis. Patient certainly could be treated with antibiotics and there is no need for emergent surgical intervention at this time. If her symptoms persist elective hand assisted laparoscopic sigmoid colectomy would be possible. The cause of the patient's weight loss and anorexia however can not be explained by the bladder findings. The patient was encouraged to consider dietary supplements to prevent further weight loss. She expressed understanding and agrees with the plan. Time Spent With Patient Time: Total time managing care of this patient today ____ minutes.
[2024-05-11] MEDS: 0.9 % Sodium Chloride Flush 3 ML SYRINGE IVFLUSH ×2 (15:06→21:07)
[2024-05-11 15:54] VITALS: BP 128/64; PULSE 63; RESP 18; TEMP 36.2; O2SAT 100
[2024-05-11 19:40] VITALS: BP 126/70; PULSE 72; RESP 18; TEMP 36.7; O2SAT 98
[2024-05-11 23:33] VITALS: BP 126/64; PULSE 82; RESP 18; TEMP 36.4; O2SAT 96
[2024-05-12] MEDS: Piperacillin Sodium/Tazobactam 3.375 GM in 0.9 % Sodium Chloride 50 ML IV ×2 (02:57→09:01)
[2024-05-12 03:00] VITALS: BP 169/79; PULSE 80; RESP 18; TEMP 36.7; O2SAT 97
[2024-05-12 06:55] VITALS: BP 121/59; PULSE 64; RESP 16; TEMP 36.1; O2SAT 98
[2024-05-12 07:18] LABS: Hematocrit 33.9 % (37.0-47.0); Hemoglobin 11.3 g/dl (12.0-16.0); Mean Corpuscular HGB Conc 33.3 g/dl (31.0-35.0); Mean Corpuscular Hemoglobin 33.7 pg (27.0-33.0); Mean Corpuscular Volume 101.2 fL (80.0-98.0); Mean Platelet Volume 8.5 fL (9.4-12.3); Platelet Count 260 X10*3/uL (160-400); Red Blood Count 3.35 X10*6/uL (4.20-5.50); Red Cell Distribution Width 15.9 % (11.0-16.0); White Blood Count 6.9 X10*3/uL (4.8-10.8)
[2024-05-12 07:22] LABS: MANUAL DIFF FLAG NO
[2024-05-12 07:23] LABS: Basophils Percent Auto 0.6 % (0-2); Eosinophils Absolute Auto 0.1 X10*3/uL (0.0-0.4); Eosinophils Percent Auto 0.9 % (0-4); Imm Gran Abs Auto 0.06 X10*3/uL (0.00-0.03); Imm Gran Pct Auto 0.9 % (0.0-0.4); Lymphocytes Absolute Auto 2.3 X10*3/uL (1.2-4.9); Lymphocytes Percent Auto 32.1 % (20-40); Monocytes Absolute Auto 0.4 X10*3/uL (0.1-1.2); Monocytes Percent Auto 5.5 % (2-11); Neutrophils Absolute Auto 4.2 x10*3/uL (2.0-8.3)
[2024-05-12 07:39] LABS: Anion Gap 12 (12-20); Blood Urea Nitrogen 11 mg/dL (9-16); Calcium 9.5 mg/dL (8.4-10.2); Carbon Dioxide 18 mmol/L (22-29); Chloride 110 mmol/L (96-108); Creatinine Clr Calc Pharmacy 68.6; Estimated Glomerular Filt Rate > 60; Glucose Random 94 mg/dL (60-115); Magnesium 2.1 mg/dL (1.6-2.6); Potassium 4.4 mmol/L (3.3-5.1); Sodium 136 mmol/L (135-145)
[2024-05-12] MEDS: Sertraline HCL 50 MG TABLET PO (08:56)
[2024-05-12] MEDS: lisinopriL 40 MG TABLET PO (08:56)
[2024-05-12] MEDS: amLODIPine Besylate 10 MG TABLET PO (08:56)
[2024-05-12] MEDS: Metoprolol Succinate ER 25 MG TAB.ER.24H PO (08:56)
[2024-05-12] MEDS: 0.9 % Sodium Chloride Flush 3 ML SYRINGE IVFLUSH (09:01)
--- NOTE | 2024-05-12 09:04 | PM.DS ---
DS: Providers Provider Date of Service: 05/12/24 Date of admission: 05/09/24 23:39 Date of discharge: 05/12/24 Primary care physician: Eloy Germain MD Consults: 05/09/24 23:43 Consult to Gastroenterology Routine Consulting Provider: Simone Craig Reason for consultation: pt of yours. ?colovesicular fistula, weight loss Has provider been notified: No 05/10/24 09:05 Consult to General Surgery Routine Consulting Provider: [facility] [place] General Surgeons Reason for consultation: complicated diverticulitis/fistula Has provider been notified: No 05/10/24 14:54 Consult to Urology Routine Consulting Provider: [facility] [place] Urology Services Reason for consultation: ?colovesical fistula, recurrent UTI, no air in bladder on imaging Has provider been notified: No 05/11/24 13:53 Consult to General Surgery Routine Consulting Provider: Ryan Anders Reason for consultation: second opinion per patient request DS: Diagnosis Discharge Diagnosis (1) [place]-vesical fistula: Status: Acute DS: Summary Hospital Course Hospital Course: from initial hpi: 74-year-old female with a past medical history significant for HTN, AFib on Xarelto, GERD, polycythemia vera on hydroxyurea, who presented to the ED due to decreased appetite for the past few months a significant weight loss of reported 70 lb over the last few months, nausea, vomiting and weakness. The patient reports that last month she was having abdominal pain and had an abdominopelvic CT by her PCP and was diagnosed with diverticulitis but was not treated with any antibiotics. Her abdominal pain resolved however she continues to have nausea and vomiting as well as weight loss. She denies any upper respiratory symptoms including fever, chills, headache, nasal congestion, rhinorrhea, sore throat or cough. She has had frequent UTIs recently requiring multiple antibiotic treatments, just completed Bactrim. She is scheduled for an endoscopy and colonoscopy with Dr. Craig soon, she reports a previous colonoscopy with possible ulcerative colitis. hospital course: Patient was admitted for acute recurrent diverticulitis with colovesicular fistula and urinary tract infection complicated by moderate protein calorie malnutrition and weight loss. Was treated with IV Zosyn. Cultures were negative. Was seen by Gastroenterology and General surgery and Urology. Conversation was had regarding trial of conservative care with antibiotics versus surgical approach. Patient would prefer conservative care especially given very small size of potential fistula without fecaluria. Patient will be discharged on 2 weeks of Augmentin and follow up with Gastroenterology. For acute hypokalemia and hypomagnesemia received replacement. For paroxysmal atrial fibrillation was continued on metoprolol, Xarelto. For hypertension continued on amlodipine, lisinopril, metoprolol. For polycythemia vera continued on hydroxyurea. Time Attestation Discharge Coordination Time (in mins): 33 Quality: Safe Use of Opioids Does Pt have an Active Cancer Diagnosis on the Problem List?: No Quality: Stroke Does the patient have a stroke diagnosis?: No Physical Exam Vital Signs: Vital Signs: Last Vital Signs Temp 97 F 05/12/24 06:55 Pulse 64 05/12/24 06:55 Resp 16 05/12/24 06:55 BP 121/59 L 05/12/24 06:55 Pulse Ox 98 05/12/24 06:55 O2 Del Method Room Air 05/12/24 06:55 BMI result Body Mass Index 27.1 General: AO X 3, no acute distress Resp: CTA bilateral, no accessory muscles used CVS: S1,S2,RRR GI: soft, non tender, non distended Neuro: motor grossly intact, alert Psych: appropriate affect, appropriate insight DS: Data Data Completed and Pending Labs on day of discharge: Laboratory Results - last 24 hr 05/12/24 06:24 WBC 6.9 RBC 3.35 L Hgb 11.3 L Hct 33.9 L MCV 101.2 H MCH 33.7 H MCHC 33.3 RDW 15.9 Plt Count 260 MPV 8.5 L Immature Gran % (Auto) 0.9 H Neut % (Auto) 60.0 Lymph % (Auto) 32.1 [place] % (Auto) 5.5 Eos % (Auto) 0.9 Baso % (Auto) 0.6 Lymph # (Auto) 2.3 [place] # (Auto) 0.4 Eos # (Auto) 0.1 Baso # (Auto) 0.0 Abs Immat Gran (auto) 0.06 H Absolute Neuts (auto) 4.2 Absolute Nucleated RBC 0.000 Nucleated RBC % (auto) 0.0 Hold Purple Top SEE NOTE Sodium 136 Potassium 4.4 D Chloride 110 H Carbon Dioxide 18 L Anion Gap 12 BUN 11 Creatinine 0.80 Estim Creat Clear Calc 68.6 Estimated GFR > 60 Random Glucose 94 Calcium 9.5 Magnesium 2.1 Preliminary micro results at discharge 05/09/24 18:38 Blood Culture - Preliminary Blood - Venous No growth after 48 hours. 05/09/24 18:38 Blood Culture - Preliminary Blood - Venous No growth after 48 hours. Discharge Plan Discharge Anticipated Discharge Date/Time: 05/12/24 09:02 Patient Disposition: Home, Self-Care Discharge Diagnosis: Possible colovesicular fistula Referrals: Simone Craig MD [Physician] - 1 Week Eloy Germain MD [Primary Care Provider] - 1 Week Discharge Medications: New amoxicillin-pot clavulanate 875-125 mg tablet 1 tab PO BID Qty: 28 0RF Continued metoprolol succinate 25 mg tablet extended release 24 hr 25 mg PO DAILY Qty: 90 3RF Xarelto 20 mg tablet 20 mg PO DAILY Qty: 30 11RF acetaminophen 325 mg tablet 975 mg PO Q8H PRN (Reason: Pain) temazepam 15 mg capsule 15 mg PO BEDTIME PRN (Reason: Sleep) omeprazole 20 mg capsule,delayed release(DR/EC) 20 mg PO DAILY PRN (Reason: Heartburn) amlodipine 10 mg tablet 10 mg PO DAILY lisinopril 40 mg tablet 40 mg PO DAILY prochlorperazine maleate [Compazine] 5 mg tablet 5 mg PO BID PRN (Reason: Nausea And Vomiting) sertraline [Zoloft] 50 mg tablet 50 mg PO DAILY hydroxyurea 500 mg capsule 500 mg PO DAILY Discontinued sulfamethoxazole-trimethoprim [Bactrim DS] 800-160 mg tablet 1 tab PO BID 5 Days Qty: 10 0RF Discharge Orders: Discharge Order (Routine); Ordered 05/12/24 Ordered By: Rafita Muhammad Diet: Advance to usual diet Activity on Discharge: As tolerated Stand Alone Forms: Patient Portal Discharge page Print Language: Turkmen Care Plan Goals: Manage possible colovesicular fistula Health Concerns: Colovesicular fistula Plan of Treatment: 2 weeks of p.o. Augmentin, follow up with Gastroenterology to verify resolution, monitor symptoms and weight loss, if no improvement may require surgery with General surgery and Urology Assessment: see above
[2024-05-12] MEDS: ondansetron HCL 4 MG/2 ML VIAL IVPUSH (09:14)
--- NOTE | 2024-05-12 09:17 | MHC.CM.PN ---
Addendum entered by Leslie Velasco 05/12/24 11:41: Discharge held due to N/V. Plan is to discharge tomorrow. Original Note: IMM 05/11/24 Patient is discharged to home today selfcare. She has arranged for private transport home.
--- NOTE | 2024-05-12 11:05 | P.PNIM_ITS ---
Subjective Subjective Date of Service: 05/12/24 Interval History: Was planning on discharge this morning but then had some nausea and vomiting Physical Exam 2 Vital Signs: Vital Signs: Last Vital Signs Temp 97 F 05/12/24 06:55 Pulse 64 05/12/24 06:55 Resp 16 05/12/24 06:55 BP 121/59 L 05/12/24 06:55 Pulse Ox 98 05/12/24 06:55 O2 Del Method Room Air 05/12/24 06:55 BMI result Body Mass Index 27.1 General: AO X 3, no acute distress Resp: CTA bilateral, no accessory muscles used CVS: S1,S2,RRR GI: soft, non tender, non distended Neuro: motor grossly intact, alert Psych: appropriate affect, appropriate insight Objective Data Active Medications Acetaminophen (Acetaminophen 325 Mg Tablet) 975 mg PO Q6H PRN PRN Reason: Pain, Mild 1-3,fever,headache Amlodipine Besylate (Amlodipine Besylate 10 Mg Tablet) 10 mg PO DAILY [facility]; Protocol Last Admin: 05/12/24 08:56 Dose: 10 mg Documented By: JAVID Amoxicillin/Clavulanate Potassium (Amoxicillin/Potassium Clav 875 Mg Tablet) 875 mg PO Q12H [facility] Calcium Carbonate (Calcium Carbonate 750 Mg Tab.Chew) 750 mg PO Q4H PRN PRN Reason: Heartburn Hydroxyurea (Hydroxyurea 500 Mg Capsule) 500 mg PO DAILY [facility] Last Admin: 05/12/24 09:02 Dose: Not Given Documented By: JAVID Non-Admin Reason: Patient Refused Lisinopril (Lisinopril 40 Mg Tablet) 40 mg PO DAILY [facility]; Protocol Last Admin: 05/12/24 08:56 Dose: 40 mg Documented By: JAVID Magnesium Hydroxide (Milk Of Magnesia 30 Ml Oral.Susp) 30 ml PO DAILY PRN PRN Reason: Constipation Melatonin (Melatonin 3 Mg Tablet) 6 mg PO BEDTIME PRN PRN Reason: Insomnia Metoprolol Succinate (Metoprolol Succinate Er 25 Mg Tab.Er.24h) 25 mg PO DAILY [facility]; Protocol Last Admin: 05/12/24 08:56 Dose: 25 mg Documented By: JAVID Morphine Sulfate (Morphine Sulfate 4 Mg/Ml Cartridge) 2 mg IVPUSH Q4H PRN; Protocol PRN Reason: Pain, Severe (Pain Scale 7-10) Omeprazole (Omeprazole 20 Mg Capsule.Dr) 20 mg PO DAILY PRN PRN Reason: Heartburn Last Admin: 05/10/24 17:50 Dose: 20 mg Documented By: SUSIE Ondansetron HCl (Ondansetron Hcl 4 Mg/2 Ml Vial) 4 mg IVPUSH Q8H PRN PRN Reason: Nausea and Vomiting Last Admin: 05/12/24 09:14 Dose: 4 mg Documented By: JAVID Oxycodone HCl (Oxycodone Hcl Immed Release 5 Mg Tablet) 5 mg PO Q6H PRN PRN Reason: Pain, Moderate(Pain Scale 4-6) Senna (Sennosides 8.6 Mg Tablet) 17.2 mg PO BEDTIME PRN PRN Reason: Constipation Last Admin: 05/11/24 08:10 Dose: 8.6 mg Documented By: IVANNA Comments: pt requested one tablet Sertraline HCl (Sertraline Hcl 50 Mg Tablet) 50 mg PO DAILY [facility] Last Admin: 05/12/24 08:56 Dose: 50 mg Documented By: JAVID Sodium Chloride (0.9 % Sodium Chloride Flush 3 Ml Syringe) 3 ml IVFLUSH QSHIFT [facility] Last Admin: 05/12/24 09:01 Dose: 3 ml Documented By: JAVID Labs 05/12/24 06:24 05/12/24 06:24 Labs: Laboratory Results - last 24 hr 05/12/24 06:24 MCV 101.2 H MCH 33.7 H MCHC 33.3 RDW 15.9 Plt Count 260 MPV 8.5 L Immature Gran % (Auto) 0.9 H Neut % (Auto) 60.0 Lymph % (Auto) 32.1 Placer % (Auto) 5.5 Eos % (Auto) 0.9 Baso % (Auto) 0.6 Lymph # (Auto) 2.3 Placer # (Auto) 0.4 Eos # (Auto) 0.1 Baso # (Auto) 0.0 Abs Immat Gran (auto) 0.06 H Absolute Neuts (auto) 4.2 Absolute Nucleated RBC 0.000 Nucleated RBC % (auto) 0.0 Hold Purple Top SEE NOTE Anion Gap 12 Estim Creat Clear Calc 68.6 Estimated GFR > 60 Random Glucose 94 Calcium 9.5 Magnesium 2.1 Microbiology Microbiology Results: Microbiology 05/09/24 18:38 Blood Culture - Preliminary Blood - Venous No growth after 48 hours. 05/09/24 18:38 Blood Culture - Preliminary Blood - Venous No growth after 48 hours. 05/09/24 20:35 Urine Culture - Final Urine clean catch - Clean Catch Midstream Assessment and Plan (1) Paroxysmal atrial fibrillation: Status: Acute Plan 74F PMH hypertension paroxysmal AFib, GERD, polycythemia vera presented with abdominal pain and weight loss found to have diverticulitis with possible colovesicular fistula and positive UA Acute diverticulitis with colovesicular fistula and UTI complicated by moderate protein calorie malnutrition and weight loss Plan for conservative therapy for now with antibiotics and to follow up closely with Gastroenterology to see if surgery needed in the future. If surgery will need to be in conjunction with general surgery and Urology Will change Zosyn to Augmentin Acute hypokalemia, hypomagnesemia Replaced Hypertension Amlodipine, lisinopril, metoprolol Paroxysmal AFib Continue metoprolol, Xarelto Polycythemia vera Hydroxyurea DVT prophylaxis - Xarelto Full code reason for continued hospitalization: Not tolerating p.o. Quality Stroke Does the patient have a stroke diagnosis?: No VTE Prior VTE?: No VTE Risk Level:: Medical - moderate - high VTE Device Contraindication: N/A - Device Ordered VTE Drug Contraindication: Treatment Not Indicated
--- NOTE | 2024-05-12 11:12 | P.PNGS_ITS ---
Subjective Subjective Date of Service: 05/12/24 Interval history: denies abdl pain has BMs and flatus denies dysuria no fever Physical Exam 2 Vital Signs: Vital Signs: Last Vital Signs Temp 97 F 05/12/24 06:55 Pulse 64 05/12/24 06:55 Resp 16 05/12/24 06:55 BP 121/59 L 05/12/24 06:55 Pulse Ox 98 05/12/24 06:55 O2 Del Method Room Air 05/12/24 06:55 BMI result Body Mass Index 27.1 Const: General: comfortable and no acute distress Resp: Effort & Inspection: normal respiratory effort Cardio: Rate: regular rate GI: Palpation (GI): Soft to palpation, not firm and nontender Objective Data Active Medications Acetaminophen (Acetaminophen 325 Mg Tablet) 975 mg PO Q6H PRN PRN Reason: Pain, Mild 1-3,fever,headache Amlodipine Besylate (Amlodipine Besylate 10 Mg Tablet) 10 mg PO DAILY [facility]; Protocol Last Admin: 05/12/24 08:56 Dose: 10 mg Documented By: JAVID Amoxicillin/Clavulanate Potassium (Amoxicillin/Potassium Clav 875 Mg Tablet) 875 mg PO Q12H [facility] Calcium Carbonate (Calcium Carbonate 750 Mg Tab.Chew) 750 mg PO Q4H PRN PRN Reason: Heartburn Hydroxyurea (Hydroxyurea 500 Mg Capsule) 500 mg PO DAILY [facility] Last Admin: 05/12/24 09:02 Dose: Not Given Documented By: JAVID Non-Admin Reason: Patient Refused Lisinopril (Lisinopril 40 Mg Tablet) 40 mg PO DAILY [facility]; Protocol Last Admin: 05/12/24 08:56 Dose: 40 mg Documented By: JAVID Magnesium Hydroxide (Milk Of Magnesia 30 Ml Oral.Susp) 30 ml PO DAILY PRN PRN Reason: Constipation Melatonin (Melatonin 3 Mg Tablet) 6 mg PO BEDTIME PRN PRN Reason: Insomnia Metoprolol Succinate (Metoprolol Succinate Er 25 Mg Tab.Er.24h) 25 mg PO DAILY [facility]; Protocol Last Admin: 05/12/24 08:56 Dose: 25 mg Documented By: JAVID Morphine Sulfate (Morphine Sulfate 4 Mg/Ml Cartridge) 2 mg IVPUSH Q4H PRN; Protocol PRN Reason: Pain, Severe (Pain Scale 7-10) Omeprazole (Omeprazole 20 Mg Capsule.Dr) 20 mg PO DAILY PRN PRN Reason: Heartburn Last Admin: 05/10/24 17:50 Dose: 20 mg Documented By: DABKaelyn Ondansetron HCl (Ondansetron Hcl 4 Mg/2 Ml Vial) 4 mg IVPUSH Q8H PRN PRN Reason: Nausea and Vomiting Last Admin: 05/12/24 09:14 Dose: 4 mg Documented By: JAVID Ondansetron HCl (Ondansetron Odt 4 Mg Tab.Rapdis) 4 mg TRANSLINGU Q8H PRN PRN Reason: Nausea and Vomiting Oxycodone HCl (Oxycodone Hcl Immed Release 5 Mg Tablet) 5 mg PO Q6H PRN PRN Reason: Pain, Moderate(Pain Scale 4-6) Rivaroxaban (Rivaroxaban 20 Mg Tablet) 20 mg PO DAILY [facility] Senna (Sennosides 8.6 Mg Tablet) 17.2 mg PO BEDTIME PRN PRN Reason: Constipation Last Admin: 05/11/24 08:10 Dose: 8.6 mg Documented By: IVANNA Comments: pt requested one tablet Sertraline HCl (Sertraline Hcl 50 Mg Tablet) 50 mg PO DAILY [facility] Last Admin: 05/12/24 08:56 Dose: 50 mg Documented By: JAVID Sodium Chloride (0.9 % Sodium Chloride Flush 3 Ml Syringe) 3 ml IVFLUSH QSHIFT [facility] Last Admin: 05/12/24 09:01 Dose: 3 ml Documented By: JAVID Labs 05/12/24 06:24 05/12/24 06:24 Labs: Laboratory Results - last 24 hr 05/12/24 06:24 MCV 101.2 H MCH 33.7 H MCHC 33.3 RDW 15.9 Plt Count 260 MPV 8.5 L Immature Gran % (Auto) 0.9 H Neut % (Auto) 60.0 Lymph % (Auto) 32.1 Nicholas % (Auto) 5.5 Eos % (Auto) 0.9 Baso % (Auto) 0.6 Lymph # (Auto) 2.3 Nicholas # (Auto) 0.4 Eos # (Auto) 0.1 Baso # (Auto) 0.0 Abs Immat Gran (auto) 0.06 H Absolute Neuts (auto) 4.2 Absolute Nucleated RBC 0.000 Nucleated RBC % (auto) 0.0 Hold Purple Top SEE NOTE Anion Gap 12 Estim Creat Clear Calc 68.6 Estimated GFR > 60 Random Glucose 94 Calcium 9.5 Magnesium 2.1 Microbiology Microbiology Results: Microbiology 05/09/24 18:38 Blood Culture - Preliminary Blood - Venous No growth after 48 hours. 05/09/24 18:38 Blood Culture - Preliminary Blood - Venous No growth after 48 hours. 05/09/24 20:35 Urine Culture - Final Urine clean catch - Clean Catch Midstream Procedures Date of Service Date of Service: 05/12/24 Progress Note: A&P Assessment and plan (1) Recurrent UTI: Status: Acute Assessment and Plan: question of colovesical fistula on CT however, no air in bladder, no fecaluria, no pneumatoria equivocal findings, no urgent surgical intervention she looks well diet as tolerated abx therapy Time Spent With Patient Time: Total time managing care of this patient today ____ minutes. Quality Stroke Does the patient have a stroke diagnosis?: No VTE Prior VTE?: No VTE Risk Level:: Medical - moderate - high VTE Device Contraindication: N/A - Device Ordered VTE Drug Contraindication: Treatment Not Indicated
[2024-05-12 15:09] VITALS: BP 133/84; PULSE 65; RESP 18; TEMP 36.6; O2SAT 99
[2024-05-12] MEDS: Amoxicillin/Potassium Clav 875 MG TABLET PO (18:29)
[2024-05-12] MEDS: Ondansetron ODT 4 MG TAB.RAPDIS TRANSLINGU (18:30)
[2024-05-12] MEDS: Dextrose 5 % and 0.9 % NaCl 1,000 ML 80 ML IVCONT (19:26)
[2024-05-12 19:32] VITALS: BP 145/87; PULSE 62; RESP 18; TEMP 36.5; O2SAT 97
[2024-05-12 23:15] VITALS: BP 128/67; PULSE 64; RESP 16; TEMP 36.6; O2SAT 98
[2024-05-13] VITALS (7 sets, daily range): BP systolic 116–142; BP diastolic 59–82; PULSE 62–69; RESP 16–18; TEMP 36.2–36.7; O2SAT 96–98
[2024-05-13] MEDS: Amoxicillin/Potassium Clav 875 MG TABLET PO ×2 (06:26→18:17)
[2024-05-13] MEDS: Dextrose 5 % and 0.9 % NaCl 1,000 ML 80 ML IVCONT ×2 (06:28→18:11)
--- NOTE | 2024-05-13 08:17 | HO.PM.IMPN ---
Subjective Subjective Date of Service: 05/13/24 Interval History: nausea improved this morning Physical Exam Vital Signs: Vital Signs: Last Vital Signs Temp 98 F 05/13/24 06:46 Pulse 65 05/13/24 06:46 Resp 16 05/13/24 06:46 BP 116/59 L 05/13/24 06:46 Pulse Ox 98 05/13/24 06:46 O2 Del Method Room Air 05/13/24 06:46 BMI result Body Mass Index 27.1 Const: General: comfortable and no acute distress Resp: Effort & Inspection: normal respiratory effort Cardio: Rate: regular rate GI: Palpation (GI): Soft to palpation, not firm and nontender Objective Data Active Medications Acetaminophen (Acetaminophen 325 Mg Tablet) 975 mg PO Q6H PRN PRN Reason: Pain, Mild 1-3,fever,headache Amlodipine Besylate (Amlodipine Besylate 10 Mg Tablet) 10 mg PO DAILY [facility]; Protocol Last Admin: 05/12/24 08:56 Dose: 10 mg Documented By: JAVID Amoxicillin/Clavulanate Potassium (Amoxicillin/Potassium Clav 875 Mg Tablet) 875 mg PO Q12H [facility] Last Admin: 05/13/24 06:26 Dose: 875 mg Documented By: EFRAIN Lipase/Protease/Amylase (Lipase/Prot/Amylase 12/38/60k Capsule.Dr) 1 cap PO TIDWM [facility] Calcium Carbonate (Calcium Carbonate 750 Mg Tab.Chew) 750 mg PO Q4H PRN PRN Reason: Heartburn Hydroxyurea (Hydroxyurea 500 Mg Capsule) 500 mg PO DAILY [facility] Last Admin: 05/12/24 09:02 Dose: Not Given Documented By: JAVID Non-Admin Reason: Patient Refused Dextrose/Sodium Chloride (D5ns) 1,000 mls @ 80 mls/hr IVCONT .[id number] [facility] Last Admin: 05/13/24 06:28 Dose: 80 mls/hr Documented By: EFRAIN Lisinopril (Lisinopril 40 Mg Tablet) 40 mg PO DAILY [facility]; Protocol Last Admin: 05/12/24 08:56 Dose: 40 mg Documented By: JAVID Magnesium Hydroxide (Milk Of Magnesia 30 Ml Oral.Susp) 30 ml PO DAILY PRN PRN Reason: Constipation Melatonin (Melatonin 3 Mg Tablet) 6 mg PO BEDTIME PRN PRN Reason: Insomnia Metoprolol Succinate (Metoprolol Succinate Er 25 Mg Tab.Er.24h) 25 mg PO DAILY [facility]; Protocol Last Admin: 05/12/24 08:56 Dose: 25 mg Documented By: JAVID Morphine Sulfate (Morphine Sulfate 4 Mg/Ml Cartridge) 2 mg IVPUSH Q4H PRN; Protocol PRN Reason: Pain, Severe (Pain Scale 7-10) Omeprazole (Omeprazole 20 Mg Capsule.Dr) 20 mg PO DAILY PRN PRN Reason: Heartburn Last Admin: 05/10/24 17:50 Dose: 20 mg Documented By: SUSIE Ondansetron HCl (Ondansetron Hcl 4 Mg/2 Ml Vial) 4 mg IVPUSH Q8H PRN PRN Reason: Nausea and Vomiting Last Admin: 05/12/24 09:14 Dose: 4 mg Documented By: JAVID Ondansetron HCl (Ondansetron Odt 4 Mg Tab.Rapdis) 4 mg TRANSLINGU Q8H PRN PRN Reason: Nausea and Vomiting Last Admin: 05/12/24 18:30 Dose: 4 mg Documented By: JAVID Oxycodone HCl (Oxycodone Hcl Immed Release 5 Mg Tablet) 5 mg PO Q6H PRN PRN Reason: Pain, Moderate(Pain Scale 4-6) Rivaroxaban (Rivaroxaban 20 Mg Tablet) 20 mg PO DAILY [facility] Senna (Sennosides 8.6 Mg Tablet) 17.2 mg PO BEDTIME PRN PRN Reason: Constipation Last Admin: 05/11/24 08:10 Dose: 8.6 mg Documented By: IVANNA Comments: pt requested one tablet Sertraline HCl (Sertraline Hcl 50 Mg Tablet) 50 mg PO DAILY [facility] Last Admin: 05/12/24 08:56 Dose: 50 mg Documented By: JAVID Sodium Chloride (0.9 % Sodium Chloride Flush 3 Ml Syringe) 3 ml IVFLUSH QSHIFT [facility] Last Admin: 05/13/24 00:40 Dose: Not Given Documented By: EFRAIN Non-Admin Reason: IV Running Labs 05/12/24 06:24 05/12/24 06:24 Assessment and Plan (1) Paroxysmal atrial fibrillation: Status: Acute Plan 74F PMH hypertension paroxysmal AFib, GERD, polycythemia vera presented with abdominal pain and weight loss found to have diverticulitis with possible colovesicular fistula and positive UA Acute diverticulitis with colovesicular fistula and UTI complicated by moderate protein calorie malnutrition and weight loss Plan for conservative therapy for now with antibiotics and to follow up closely with Gastroenterology to see if surgery needed in the future. If surgery will need to be in conjunction with general surgery and Urology changed Zosyn to Augmentin atrophic pancreas on imaging with n/v will start creon for chronic pancreatic insufficiency Acute hypokalemia, hypomagnesemia Replaced Hypertension Amlodipine, lisinopril, metoprolol Paroxysmal AFib Continue metoprolol, Xarelto Polycythemia vera Hydroxyurea DVT prophylaxis - Xarelto Full code reason for continued hospitalization: awaiting po tolerance Quality Stroke Does the patient have a stroke diagnosis?: No VTE Prior VTE?: No VTE Risk Level:: Medical - moderate - high VTE Device Contraindication: N/A - Device Ordered VTE Drug Contraindication: Treatment Not Indicated
[2024-05-13] MEDS: Metoprolol Succinate ER 25 MG TAB.ER.24H PO (08:22)
[2024-05-13] MEDS: Lipase/Prot/Amylase 12/38/60K CAPSULE.DR 1 CAP PO ×3 (08:24→18:12)
[2024-05-13] MEDS: amLODIPine Besylate 10 MG TABLET PO (08:25)
[2024-05-13] MEDS: Sertraline HCL 50 MG TABLET PO (08:25)
[2024-05-13] MEDS: Rivaroxaban 20 MG TABLET PO (08:25)
[2024-05-13] MEDS: lisinopriL 40 MG TABLET PO (08:25)
--- NOTE | 2024-05-13 09:26 | P.PNGS_ITS ---
Subjective Subjective Date of Service: 05/13/24 Interval history: Denies dysuria Denies lower abdominal pain or any abdominal pain Her main complaint at this time is that she has had significant weight loss of 70 lb for the past 8 months or so She states that she has had poor appetite and poor oral intake She says that she gags with just the sight of food and gets nauseous immediately after meals Symptoms have been ongoing for several months now Physical Exam 2 Vital Signs: Vital Signs: Last Vital Signs Temp 98 F 05/13/24 06:46 Pulse 68 05/13/24 08:22 Resp 16 05/13/24 06:46 BP 142/81 H 05/13/24 08:22 Pulse Ox 98 05/13/24 06:46 O2 Del Method Room Air 05/13/24 06:46 BMI result Body Mass Index 27.1 Const: General: comfortable and no acute distress Resp: Effort & Inspection: normal respiratory effort Cardio: Rate: regular rate GI: Palpation (GI): Soft to palpation, not firm, nontender and no guarding Objective Data Active Medications Acetaminophen (Acetaminophen 325 Mg Tablet) 975 mg PO Q6H PRN PRN Reason: Pain, Mild 1-3,fever,headache Amlodipine Besylate (Amlodipine Besylate 10 Mg Tablet) 10 mg PO DAILY [facility]; Protocol Last Admin: 05/13/24 08:25 Dose: 10 mg Documented By: JAMMIE Amoxicillin/Clavulanate Potassium (Amoxicillin/Potassium Clav 875 Mg Tablet) 875 mg PO Q12H [facility] Last Admin: 05/13/24 06:26 Dose: 875 mg Documented By: EFRAIN Lipase/Protease/Amylase (Lipase/Prot/Amylase 12/38/60k Capsule.) 1 cap PO TIDWM [facility] Last Admin: 05/13/24 08:24 Dose: 1 cap Documented By: JAMMIE Calcium Carbonate (Calcium Carbonate 750 Mg Tab.Chew) 750 mg PO Q4H PRN PRN Reason: Heartburn Hydroxyurea (Hydroxyurea 500 Mg Capsule) 500 mg PO DAILY [facility] Last Admin: 05/13/24 08:22 Dose: Not Given Documented By: JAMMIE Non-Admin Reason: Patient Refused Dextrose/Sodium Chloride (D5ns) 1,000 mls @ 80 mls/hr IVCONT .[id number] [facility] Last Admin: 05/13/24 06:28 Dose: 80 mls/hr Documented By: ODRISM Lisinopril (Lisinopril 40 Mg Tablet) 40 mg PO DAILY [facility]; Protocol Last Admin: 05/13/24 08:25 Dose: 40 mg Documented By: JAMMIE Magnesium Hydroxide (Milk Of Magnesia 30 Ml Oral.Susp) 30 ml PO DAILY PRN PRN Reason: Constipation Melatonin (Melatonin 3 Mg Tablet) 6 mg PO BEDTIME PRN PRN Reason: Insomnia Metoprolol Succinate (Metoprolol Succinate Er 25 Mg Tab.Er.24h) 25 mg PO DAILY [facility]; Protocol Last Admin: 05/13/24 08:22 Dose: 25 mg Documented By: JAMMIE Morphine Sulfate (Morphine Sulfate 4 Mg/Ml Cartridge) 2 mg IVPUSH Q4H PRN; Protocol PRN Reason: Pain, Severe (Pain Scale 7-10) Omeprazole (Omeprazole 20 Mg Capsule.Dr) 20 mg PO DAILY PRN PRN Reason: Heartburn Last Admin: 05/10/24 17:50 Dose: 20 mg Documented By: SUSIE Ondansetron HCl (Ondansetron Hcl 4 Mg/2 Ml Vial) 4 mg IVPUSH Q8H PRN PRN Reason: Nausea and Vomiting Last Admin: 05/12/24 09:14 Dose: 4 mg Documented By: JAVID Ondansetron HCl (Ondansetron Odt 4 Mg Tab.Rapdis) 4 mg TRANSLINGU Q8H PRN PRN Reason: Nausea and Vomiting Last Admin: 05/12/24 18:30 Dose: 4 mg Documented By: JAVID Oxycodone HCl (Oxycodone Hcl Immed Release 5 Mg Tablet) 5 mg PO Q6H PRN PRN Reason: Pain, Moderate(Pain Scale 4-6) Rivaroxaban (Rivaroxaban 20 Mg Tablet) 20 mg PO DAILY [facility] Last Admin: 05/13/24 08:25 Dose: 20 mg Documented By: JAMMIE Senna (Sennosides 8.6 Mg Tablet) 17.2 mg PO BEDTIME PRN PRN Reason: Constipation Last Admin: 05/11/24 08:10 Dose: 8.6 mg Documented By: IVANNA Comments: pt requested one tablet Sertraline HCl (Sertraline Hcl 50 Mg Tablet) 50 mg PO DAILY [facility] Last Admin: 05/13/24 08:25 Dose: 50 mg Documented By: JAMMIE Sodium Chloride (0.9 % Sodium Chloride Flush 3 Ml Syringe) 3 ml IVFLUSH QSHIFT [facility] Last Admin: 05/13/24 08:27 Dose: Not Given Documented By: JAMMIE Non-Admin Reason: IV Running Labs 05/12/24 06:24 05/12/24 06:24 Procedures Date of Service Date of Service: 05/13/24 Progress Note: A&P Assessment and plan (1) Recurrent UTI: Status: Acute Assessment and Plan: No urinary complaints No abdominal pain Findings of a colovesical fistula equivocal Her main complaint at this time is significant weight loss, poor oral intake, poor appetite, gagging with food for 8 months Consider endoscopy I also suggested to her to have more frequent small meals instead of 3 big meals during the day Abdominal exam benign Time Spent With Patient Time: Total time managing care of this patient today ____ minutes. Quality Stroke Does the patient have a stroke diagnosis?: No VTE Prior VTE?: No VTE Risk Level:: Medical - moderate - high VTE Device Contraindication: N/A - Device Ordered VTE Drug Contraindication: Treatment Not Indicated
[2024-05-13 09:57] LABS: Hematocrit 34.3 % (37.0-47.0); Hemoglobin 11.6 g/dl (12.0-16.0); Mean Corpuscular HGB Conc 33.8 g/dl (31.0-35.0); Mean Corpuscular Hemoglobin 34.5 pg (27.0-33.0); Mean Corpuscular Volume 102.1 fL (80.0-98.0); Mean Platelet Volume 8.5 fL (9.4-12.3); Platelet Count 281 X10*3/uL (160-400); Red Blood Count 3.36 X10*6/uL (4.20-5.50); Red Cell Distribution Width 15.9 % (11.0-16.0); White Blood Count 7.3 X10*3/uL (4.8-10.8)
[2024-05-13 10:20] LABS: Alanine Aminotransferase 6 U/L (0-31); Alkaline Phosphatase 43 U/L (39-117); Anion Gap 11 (12-20); Aspartate Amino Transferase 20 U/L (5-31); Bilirubin Direct 0.5 mg/dL (0.0-0.5); Bilirubin Total 1.2 mg/dL (0.0-1.0); Blood Urea Nitrogen 10 mg/dL (9-16); Calcium 9.5 mg/dL (8.4-10.2); Carbon Dioxide 17 mmol/L (22-29); Chloride 112 mmol/L (96-108); Creatinine Clr Calc Pharmacy 72.2; Estimated Glomerular Filt Rate > 60; Glucose Random 136 mg/dL (60-115); Iron 105 mcg/dL (30-160); Percent Iron Saturation 66 % (15-50); Potassium 3.5 mmol/L (3.3-5.1); Sodium 136 mmol/L (135-145); Total Iron Binding Capacity 158 mcg/dL (228-428); Total Protein 5.5 g/dL (6.5-8.0); Unsaturated Iron Binding 53 ug/dL
[2024-05-13] MEDS: Ondansetron ODT 4 MG TAB.RAPDIS TRANSLINGU ×2 (11:04→18:16)
[2024-05-14 04:00] VITALS: BP 159/80; PULSE 60; RESP 18; TEMP 36.4; O2SAT 95
[2024-05-14] MEDS: Amoxicillin/Potassium Clav 875 MG TABLET PO ×2 (06:24→19:59)
[2024-05-14] MEDS: Dextrose 5 % and 0.9 % NaCl 1,000 ML 80 ML IVCONT ×2 (06:24→17:32)
[2024-05-14 06:55] VITALS: BP 143/81; PULSE 60; RESP 16; TEMP 36.1; O2SAT 97
[2024-05-14] MEDS: ondansetron HCL 4 MG/2 ML VIAL IVPUSH (09:43)
[2024-05-14] MEDS: amLODIPine Besylate 10 MG TABLET PO (10:49)
[2024-05-14] MEDS: Rivaroxaban 20 MG TABLET PO (10:49)
[2024-05-14] MEDS: Metoprolol Succinate ER 25 MG TAB.ER.24H PO (10:49)
[2024-05-14] MEDS: lisinopriL 40 MG TABLET PO (10:49)
[2024-05-14] MEDS: Sertraline HCL 50 MG TABLET PO (10:49)
--- NOTE | 2024-05-14 10:52 | HO.PM.IMPN ---
Subjective Subjective Date of Service: 05/14/24 Interval History: still anusea Physical Exam Vital Signs: Vital Signs: Last Vital Signs Temp 97 F 05/14/24 06:55 Pulse 60 05/14/24 06:55 Resp 16 05/14/24 06:55 BP 143/81 H 05/14/24 06:55 Pulse Ox 97 05/14/24 06:55 O2 Del Method Room Air 05/14/24 06:55 BMI result Body Mass Index 27.1 Const: General: comfortable and no acute distress Resp: Effort & Inspection: normal respiratory effort Cardio: Rate: regular rate GI: Palpation (GI): Soft to palpation, not firm, nontender and no guarding Objective Data Active Medications Acetaminophen (Acetaminophen 325 Mg Tablet) 975 mg PO Q6H PRN PRN Reason: Pain, Mild 1-3,fever,headache Amlodipine Besylate (Amlodipine Besylate 10 Mg Tablet) 10 mg PO DAILY [facility]; Protocol Last Admin: 05/14/24 10:49 Dose: 10 mg Documented By: LUKE Amoxicillin/Clavulanate Potassium (Amoxicillin/Potassium Clav 875 Mg Tablet) 875 mg PO Q12H [facility] Last Admin: 05/14/24 06:24 Dose: 875 mg Documented By: MAGDALENA Lipase/Protease/Amylase (Lipase/Prot/Amylase 12/38/60k Capsule.Dr) 1 cap PO TIDWM [facility] Last Admin: 05/14/24 09:55 Dose: Not Given Documented By: LUKE Non-Admin Reason: Nausea Calcium Carbonate (Calcium Carbonate 750 Mg Tab.Chew) 750 mg PO Q4H PRN PRN Reason: Heartburn Hydroxyurea (Hydroxyurea 500 Mg Capsule) 500 mg PO DAILY [facility] Last Admin: 05/14/24 10:49 Dose: Not Given Documented By: LUKE Non-Admin Reason: Patient Refused Dextrose/Sodium Chloride (D5ns) 1,000 mls @ 80 mls/hr IVCONT .[id number] [facility] Last Admin: 05/14/24 06:24 Dose: 80 mls/hr Documented By: MAGDALENA Lisinopril (Lisinopril 40 Mg Tablet) 40 mg PO DAILY [facility]; Protocol Last Admin: 05/14/24 10:49 Dose: 40 mg Documented By: LUKE Magnesium Hydroxide (Milk Of Magnesia 30 Ml Oral.Susp) 30 ml PO DAILY PRN PRN Reason: Constipation Melatonin (Melatonin 3 Mg Tablet) 6 mg PO BEDTIME PRN PRN Reason: Insomnia Metoprolol Succinate (Metoprolol Succinate Er 25 Mg Tab.Er.24h) 25 mg PO DAILY [facility]; Protocol Last Admin: 05/14/24 10:49 Dose: 25 mg Documented By: LUKE Morphine Sulfate (Morphine Sulfate 4 Mg/Ml Cartridge) 2 mg IVPUSH Q4H PRN; Protocol PRN Reason: Pain, Severe (Pain Scale 7-10) Omeprazole (Omeprazole 20 Mg Capsule.Dr) 20 mg PO DAILY PRN PRN Reason: Heartburn Last Admin: 05/10/24 17:50 Dose: 20 mg Documented By: SUSIE Ondansetron HCl (Ondansetron Hcl 4 Mg/2 Ml Vial) 4 mg IVPUSH Q8H PRN PRN Reason: Nausea and Vomiting Last Admin: 05/14/24 09:43 Dose: 4 mg Documented By: LUKE Ondansetron HCl (Ondansetron Odt 4 Mg Tab.Rapdis) 4 mg TRANSLINGU Q8H PRN PRN Reason: Nausea and Vomiting Last Admin: 05/13/24 18:16 Dose: 4 mg Documented By: JAMMIE Oxycodone HCl (Oxycodone Hcl Immed Release 5 Mg Tablet) 5 mg PO Q6H PRN PRN Reason: Pain, Moderate(Pain Scale 4-6) Rivaroxaban (Rivaroxaban 20 Mg Tablet) 20 mg PO DAILY [facility] Last Admin: 05/14/24 10:49 Dose: 20 mg Documented By: LUKE Senna (Sennosides 8.6 Mg Tablet) 17.2 mg PO BEDTIME PRN PRN Reason: Constipation Last Admin: 05/11/24 08:10 Dose: 8.6 mg Documented By: IVANNA Comments: pt requested one tablet Sertraline HCl (Sertraline Hcl 50 Mg Tablet) 50 mg PO DAILY [facility] Last Admin: 05/14/24 10:49 Dose: 50 mg Documented By: LUKE Sodium Chloride (0.9 % Sodium Chloride Flush 3 Ml Syringe) [facility] Last Admin: 05/14/24 09:41 Dose: Not Given Documented By: LUKE Non-Admin Reason: IV Running Labs 05/13/24 09:25 05/13/24 09:25 Assessment and Plan (1) Paroxysmal atrial fibrillation: Status: Acute Plan 74F PMH hypertension paroxysmal AFib, GERD, polycythemia vera presented with abdominal pain and weight loss found to have diverticulitis with possible colovesicular fistula and positive UA Acute diverticulitis with colovesicular fistula and UTI complicated by moderate protein calorie malnutrition and weight loss Plan for conservative therapy for now with antibiotics and to follow up closely with Gastroenterology to see if surgery needed in the future. If surgery will need to be in conjunction with general surgery and Urology changed Zosyn to Augmentin atrophic pancreas on imaging with n/v started creon for chronic pancreatic insufficiency Acute hypokalemia, hypomagnesemia Replaced Hypertension Amlodipine, lisinopril, metoprolol Paroxysmal AFib Continue metoprolol, Xarelto Polycythemia vera Hydroxyurea DVT prophylaxis - Xarelto Full code reason for continued hospitalization: awaiting po tolerance Quality Stroke Does the patient have a stroke diagnosis?: No VTE Prior VTE?: No VTE Risk Level:: Medical - moderate - high VTE Device Contraindication: N/A - Device Ordered VTE Drug Contraindication: Treatment Not Indicated
[2024-05-14 11:54] VITALS: BP 128/70; PULSE 64; RESP 18; TEMP 36.2; O2SAT 97
--- NOTE | 2024-05-14 13:22 | MHC.CLN ---
F/U DIET=REGULAR. DOES NOT WANT NUTRITIONAL SUPPLEMENTS. PO INTAKE VARIABLE. RECENT CONCERNS WITH NAUSEA, VOMITING, POOR APPETITE. CONTINUE TO MONITOR PO INTAKE.
[2024-05-14 15:22] VITALS: BP 141/81; PULSE 71; RESP 18; TEMP 36.1; O2SAT 98
--- NOTE | 2024-05-14 15:27 | MHC.CM.PN ---
per rounds pt not dc ready dc plan remaons for home
[2024-05-14 18:29] LABS: Leukocytes Stool Qualitative NEGATIVE (NEGATIVE)
[2024-05-14 18:40] LABS: CDiff Gene PCR NEGATIVE (Negative)
[2024-05-14 19:51] VITALS: BP 134/68; PULSE 60; RESP 18; TEMP 36.5; O2SAT 98
[2024-05-14 23:50] VITALS: BP 142/81; PULSE 60; RESP 16; TEMP 36.2; O2SAT 97
[2024-05-15 03:28] VITALS: BP 136/80; PULSE 64; RESP 18; TEMP 36; O2SAT 99
[2024-05-15] MEDS: Dextrose 5 % and 0.9 % NaCl 1,000 ML 80 ML IVCONT ×2 (05:52→18:08)
[2024-05-15 07:02] LABS: Hematocrit 33.2 % (37.0-47.0); Hemoglobin 11.5 g/dl (12.0-16.0); Mean Corpuscular HGB Conc 34.6 g/dl (31.0-35.0); Mean Corpuscular Hemoglobin 34.8 pg (27.0-33.0); Mean Corpuscular Volume 100.6 fL (80.0-98.0); Mean Platelet Volume 8.3 fL (9.4-12.3); Platelet Count 255 X10*3/uL (160-400); Red Cell Distribution Width 15.7 % (11.0-16.0); White Blood Count 5.4 X10*3/uL (4.8-10.8)
[2024-05-15 07:37] VITALS: BP 135/83; PULSE 62; RESP 14; TEMP 36.7; O2SAT 98
[2024-05-15 07:45] LABS: Alanine Aminotransferase < 6 U/L (0-31); Albumin Level 2.7 g/dL (3.5-5.0); Alkaline Phosphatase 43 U/L (39-117); Anion Gap 5 (12-20); Aspartate Amino Transferase 22 U/L (5-31); Bilirubin Direct 0.4 mg/dL (0.0-0.5); Blood Urea Nitrogen 3 mg/dL (9-16); Calcium 9.3 mg/dL (8.4-10.2); Carbon Dioxide 21 mmol/L (22-29); Chloride 112 mmol/L (96-108); Creatinine Clr Calc Pharmacy 81.9; Estimated Glomerular Filt Rate > 60; Glucose Random 117 mg/dL (60-115); Magnesium 1.4 mg/dL (1.6-2.6); Potassium 3.2 mmol/L (3.3-5.1); Sodium 135 mmol/L (135-145); Total Protein 5.2 g/dL (6.5-8.0)
[2024-05-15] MEDS: Magnesium Sulfate/H2O 2 GM/50 ML PIGGYBACK IV (08:05)
[2024-05-15] MEDS: 0.9 % Sodium Chloride Flush 3 ML SYRINGE IVFLUSH ×2 (08:05→16:38)
[2024-05-15] MEDS: Sertraline HCL 50 MG TABLET PO (09:46)
[2024-05-15] MEDS: Amoxicillin/Potassium Clav 875 MG TABLET PO ×2 (09:46→19:31)
[2024-05-15] MEDS: Rivaroxaban 20 MG TABLET PO (09:46)
[2024-05-15] MEDS: lisinopriL 40 MG TABLET PO (09:46)
[2024-05-15] MEDS: Metoprolol Succinate ER 25 MG TAB.ER.24H PO (09:46)
[2024-05-15] MEDS: amLODIPine Besylate 10 MG TABLET PO (09:46)
[2024-05-15] MEDS: ondansetron HCL 4 MG/2 ML VIAL IVPUSH (09:50)
[2024-05-15 10:02] LABS: Adenovirus F 40/41 Not Detected (Not Detect.); Astrovirus Not Detected (Not Detect.); Campylobacter Not Detected (Not Detect.); Cryptosporidium Not Detected (Not Detect.); Cyclospora cayetanensis Not Detected (Not Detect.); E. coli EAEC Not Detected (Not Detect.); E. coli EPEC Not Detected (Not Detect.); E. coli ETEC Not Detected (Not Detect.); E. coli STEC Not Detected (Not Detect.); Entamoeba histolytica Not Detected (Not Detect.); Giardia lamblia Not Detected (Not Detect.); Norovirus GI/GII Not Detected (Not Detect.); Plesiomonas shigelloides Not Detected (Not Detect.); Rotavirus A Not Detected (Not Detect.); Salmonella Not Detected (Not Detect.); Sapovirus Not Detected (Not Detect.); Shigella sp./EIEC Not Detected (Not Detect.); Vibrio Not Detected (Not Detect.); Vibrio Cholerae Not Detected (Not Detect.); Yersinia enterocolitica Not Detected (Not Detect.)
--- NOTE | 2024-05-15 10:11 | P.PNIM_ITS ---
Subjective Subjective Date of Service: 05/15/24 Interval History: still with nausea Physical Exam 2 Vital Signs: Vital Signs: Last Vital Signs Temp 98.1 F 05/15/24 07:37 Pulse 62 05/15/24 07:37 Resp 14 05/15/24 07:37 BP 135/83 05/15/24 07:37 Pulse Ox 98 05/15/24 07:37 O2 Del Method Room Air 05/15/24 07:37 BMI result Body Mass Index 27.1 Const: General: comfortable and no acute distress Resp: Effort & Inspection: normal respiratory effort Cardio: Rate: regular rate GI: Palpation (GI): Soft to palpation, not firm, nontender and no guarding Objective Data Active Medications Acetaminophen (Acetaminophen 325 Mg Tablet) 975 mg PO Q6H PRN PRN Reason: Pain, Mild 1-3,fever,headache Amlodipine Besylate (Amlodipine Besylate 10 Mg Tablet) 10 mg PO DAILY [facility]; Protocol Last Admin: 05/15/24 09:46 Dose: 10 mg Documented By: LUKE Amoxicillin/Clavulanate Potassium (Amoxicillin/Potassium Clav 875 Mg Tablet) 875 mg PO Q12H [facility] Last Admin: 05/15/24 09:46 Dose: 875 mg Documented By: LUKE Lipase/Protease/Amylase (Lipase/Prot/Amylase /60k Capsule.Dr) 1 cap PO TIDWM [facility] Last Admin: 05/15/24 09:23 Dose: Not Given Documented By: LUKE Non-Admin Reason: Med Not Available Calcium Carbonate (Calcium Carbonate 750 Mg Tab.Chew) 750 mg PO Q4H PRN PRN Reason: Heartburn Hydroxyurea (Hydroxyurea 500 Mg Capsule) 500 mg PO DAILY [facility] Last Admin: 05/15/24 09:46 Dose: Not Given Documented By: LUKE Non-Admin Reason: Patient Refused Dextrose/Sodium Chloride (D5ns) 1,000 mls @ 80 mls/hr IVCONT .[id number] [facility] Last Admin: 05/15/24 05:52 Dose: 80 mls/hr Documented By: TRIPP Lisinopril (Lisinopril 40 Mg Tablet) 40 mg PO DAILY [facility]; Protocol Last Admin: 05/15/24 09:46 Dose: 40 mg Documented By: LUKE Magnesium Hydroxide (Milk Of Magnesia 30 Ml Oral.Susp) 30 ml PO DAILY PRN PRN Reason: Constipation Melatonin (Melatonin 3 Mg Tablet) 6 mg PO BEDTIME PRN PRN Reason: Insomnia Metoprolol Succinate (Metoprolol Succinate Er 25 Mg Tab.Er.24h) 25 mg PO DAILY [facility]; Protocol Last Admin: 05/15/24 09:46 Dose: 25 mg Documented By: LUKE Omeprazole (Omeprazole 20 Mg Capsule.Dr) 20 mg PO DAILY PRN PRN Reason: Heartburn Last Admin: 05/10/24 17:50 Dose: 20 mg Documented By: SUSIE Ondansetron HCl (Ondansetron Hcl 4 Mg/2 Ml Vial) 4 mg IVPUSH Q8H PRN PRN Reason: Nausea and Vomiting Last Admin: 05/15/24 09:50 Dose: 4 mg Documented By: LUKE Ondansetron HCl (Ondansetron Odt 4 Mg Tab.Rapdis) 4 mg TRANSLINGU Q8H PRN PRN Reason: Nausea and Vomiting Last Admin: 05/13/24 18:16 Dose: 4 mg Documented By: JAMMIE Rivaroxaban (Rivaroxaban 20 Mg Tablet) 20 mg PO DAILY [facility] Last Admin: 05/15/24 09:46 Dose: 20 mg Documented By: LUKE Senna (Sennosides 8.6 Mg Tablet) 17.2 mg PO BEDTIME PRN PRN Reason: Constipation Last Admin: 05/11/24 08:10 Dose: 8.6 mg Documented By: IVANNA Comments: pt requested one tablet Sertraline HCl (Sertraline Hcl 50 Mg Tablet) 50 mg PO DAILY [facility] Last Admin: 05/15/24 09:46 Dose: 50 mg Documented By: LUKE Sodium Chloride (0.9 % Sodium Chloride Flush 3 Ml Syringe) 3 ml IVFLUSH QSHIFT [facility] Last Admin: 05/15/24 08:05 Dose: 3 ml Documented By: LUKE Labs 05/15/24 06:27 05/15/24 06:27 Labs: Laboratory Results - last 24 hr 05/14/24 05/14/24 05/15/24 17:29 17:30 06:27 MCV 100.6 H MCH 34.8 H MCHC 34.6 RDW 15.7 Plt Count 255 MPV 8.3 L Absolute Nucleated RBC 0.000 Nucleated RBC % (auto) 0.0 Anion Gap 5 L Estim Creat Clear Calc 81.9 Estimated GFR > 60 Random Glucose 117 H Calcium 9.3 Magnesium 1.4 L* Total Bilirubin 1.0 Direct Bilirubin 0.4 AST 22 ALT < 6 Alkaline Phosphatase 43 Total Protein 5.2 L Albumin 2.7 L Stool Leukocytes, Qual NEGATIVE C. difficile Tox B Gene NEGATIVE Microbiology Microbiology Results: Microbiology 05/09/24 18:38 Blood Culture - Final Blood - Venous No growth after 5 days. 05/09/24 18:38 Blood Culture - Final Blood - Venous No growth after 5 days. Assessment and Plan (1) Paroxysmal atrial fibrillation: Status: Acute Plan 74F PMH hypertension paroxysmal AFib, GERD, polycythemia vera presented with abdominal pain and weight loss found to have diverticulitis with possible colovesicular fistula and positive UA Acute diverticulitis with colovesicular fistula and UTI complicated by moderate protein calorie malnutrition and weight loss Plan for conservative therapy for now with antibiotics and to follow up closely with Gastroenterology to see if surgery needed in the future. If surgery will need to be in conjunction with general surgery and Urology changed Zosyn to Augmentin atrophic pancreas on imaging with n/v started creon for chronic pancreatic insufficiency Acute hypokalemia, hypomagnesemia Replace, monitor Hypertension Amlodipine, lisinopril, metoprolol Paroxysmal AFib Continue metoprolol, Xarelto Polycythemia vera Hydroxyurea DVT prophylaxis - Xarelto Full code reason for continued hospitalization: awaiting po tolerance Quality Stroke Does the patient have a stroke diagnosis?: No VTE Prior VTE?: No VTE Risk Level:: Medical - moderate - high VTE Device Contraindication: N/A - Device Ordered VTE Drug Contraindication: Treatment Not Indicated
[2024-05-15 10:13] LABS: Anti Nuclear Antibody Screen NEGATIVE (NEGATIVE)
[2024-05-15 12:00] VITALS: BP 136/81; PULSE 63; RESP 16; TEMP 36.8; O2SAT 98
[2024-05-15] MEDS: Pantoprazole Sodium 40 MG/10 ML VIAL IVPUSH ×2 (12:14→16:38)
--- NOTE | 2024-05-15 12:23 | P.PNGI_ITS ---
Subjective Subjective Date of Service: 05/15/24 Interval History: c/o nausea and vomiting also has anorexia Critical Care Time (minutes): 0 Physical Exam 2 Vital Signs: Vital Signs: Last Vital Signs Temp 98.1 F 05/15/24 07:37 Pulse 62 05/15/24 07:37 Resp 14 05/15/24 07:37 BP 135/83 05/15/24 07:37 Pulse Ox 98 05/15/24 07:37 O2 Del Method Room Air 05/15/24 07:37 BMI result Body Mass Index 27.1 GI: Other: abdomen is soft and nontender Objective Data Labs 05/15/24 06:27 05/15/24 06:27 Microbiology Microbiology Results: Microbiology 05/09/24 18:38 Blood - Venous Blood Culture - Final No growth after 5 days. 05/09/24 18:38 Blood - Venous Blood Culture - Final No growth after 5 days. 05/09/24 20:35 Urine clean catch - Clean Catch Midstream Urine Culture - Final Procedures Date of Service Date of Service: 05/15/24 Progress Note: A&P Assessment and plan (1) Intractable nausea: Status: Acute Assessment and Plan: ppi started cont antiemetics EGD tomorrow for further evaluation Time Spent With Patient Time: Total time managing care of this patient today ____ minutes. Quality Stroke Does the patient have a stroke diagnosis?: No VTE Prior VTE?: No VTE Risk Level:: Medical - moderate - high VTE Device Contraindication: N/A - Device Ordered VTE Drug Contraindication: Treatment Not Indicated
[2024-05-15 15:00] VITALS: BP 138/78; PULSE 63; RESP 16; TEMP 36.7; O2SAT 98
[2024-05-15] MEDS: Potassium Chloride ER 20 MEQ TAB.ER.PRT 40 MEQ PO (16:38)
[2024-05-15 19:31] VITALS: BP 145/86; PULSE 73; RESP 18; TEMP 36.3; O2SAT 96
[2024-05-15 23:54] VITALS: BP 145/84; PULSE 69; RESP 18; TEMP 36.5; O2SAT 100
[2024-05-16] VITALS (11 sets, daily range): BP systolic 124–186; BP diastolic 60–93; PULSE 57–69; RESP 14–20; TEMP 36.3–36.9; O2SAT 94–99
[2024-05-16] MEDS: Dextrose 5 % and 0.9 % NaCl 1,000 ML 80 ML IVCONT (05:31)
[2024-05-16] MEDS: Pantoprazole Sodium 40 MG/10 ML VIAL IVPUSH ×2 (05:31→16:02)
[2024-05-16 07:48] LABS: Hematocrit 33.9 % (37.0-47.0); Hemoglobin 11.6 g/dl (12.0-16.0); Mean Corpuscular HGB Conc 34.2 g/dl (31.0-35.0); Mean Corpuscular Hemoglobin 34.4 pg (27.0-33.0); Mean Corpuscular Volume 100.6 fL (80.0-98.0); Mean Platelet Volume 8.4 fL (9.4-12.3); Platelet Count 241 X10*3/uL (160-400); Red Blood Count 3.37 X10*6/uL (4.20-5.50); Red Cell Distribution Width 15.7 % (11.0-16.0); White Blood Count 4.8 X10*3/uL (4.8-10.8)
[2024-05-16 08:01] LABS: Anion Gap 10 (12-20); Blood Urea Nitrogen 4 mg/dL (9-16); Calcium 9.3 mg/dL (8.4-10.2); Carbon Dioxide 19 mmol/L (22-29); Chloride 112 mmol/L (96-108); Creatinine Clr Calc Pharmacy 83.1; Estimated Glomerular Filt Rate > 60; Glucose Random 108 mg/dL (60-115); Magnesium 1.7 mg/dL (1.6-2.6); Potassium 3.5 mmol/L (3.3-5.1); Sodium 137 mmol/L (135-145)
--- NOTE | 2024-05-16 08:53 | P.PNIM_ITS ---
Subjective Subjective Date of Service: 05/16/24 Interval History: poor po tolerance Physical Exam 2 Vital Signs: Vital Signs: Last Vital Signs Temp 98.1 F 05/16/24 07:50 Pulse 67 05/16/24 07:50 Resp 14 05/16/24 07:50 BP 146/77 H 05/16/24 07:50 Pulse Ox 98 05/16/24 07:50 O2 Del Method Room Air 05/16/24 07:50 BMI result Body Mass Index 27.1 GI: Other: abdomen is soft and nontender Objective Data Active Medications Acetaminophen (Acetaminophen 325 Mg Tablet) 975 mg PO Q6H PRN PRN Reason: Pain, Mild 1-3,fever,headache Amlodipine Besylate (Amlodipine Besylate 10 Mg Tablet) 10 mg PO DAILY [facility]; Protocol Last Admin: 05/15/24 09:46 Dose: 10 mg Documented By: LUKE Amoxicillin/Clavulanate Potassium (Amoxicillin/Potassium Clav 875 Mg Tablet) 875 mg PO Q12H [facility] Last Admin: 05/16/24 06:29 Dose: Not Given Documented By: DINA Non-Admin Reason: NPO Calcium Carbonate (Calcium Carbonate 750 Mg Tab.Chew) 750 mg PO Q4H PRN PRN Reason: Heartburn Hydroxyurea (Hydroxyurea 500 Mg Capsule) 500 mg PO DAILY [facility] Last Admin: 05/15/24 09:46 Dose: Not Given Documented By: LUKE Non-Admin Reason: Patient Refused Lisinopril (Lisinopril 40 Mg Tablet) 40 mg PO DAILY [facility]; Protocol Last Admin: 05/15/24 09:46 Dose: 40 mg Documented By: LUKE Magnesium Hydroxide (Milk Of Magnesia 30 Ml Oral.Susp) 30 ml PO DAILY PRN PRN Reason: Constipation Melatonin (Melatonin 3 Mg Tablet) 6 mg PO BEDTIME PRN PRN Reason: Insomnia Metoprolol Succinate (Metoprolol Succinate Er 25 Mg Tab.Er.24h) 25 mg PO DAILY [facility]; Protocol Last Admin: 05/15/24 09:46 Dose: 25 mg Documented By: LUKE Omeprazole (Omeprazole 20 Mg Capsule.Dr) 20 mg PO DAILY PRN PRN Reason: Heartburn Last Admin: 05/10/24 17:50 Dose: 20 mg Documented By: SUSIE Ondansetron HCl (Ondansetron Hcl 4 Mg/2 Ml Vial) 4 mg IVPUSH Q8H PRN PRN Reason: Nausea and Vomiting Last Admin: 05/15/24 09:50 Dose: 4 mg Documented By: LUKE Ondansetron HCl (Ondansetron Odt 4 Mg Tab.Rapdis) 4 mg TRANSLINGU Q8H PRN PRN Reason: Nausea and Vomiting Last Admin: 05/13/24 18:16 Dose: 4 mg Documented By: JAMMIE Pantoprazole Sodium (Pantoprazole Sodium 40 Mg/10 Ml Vial) 40 mg IVPUSH BID@0630,1630 [facility] Last Admin: 05/16/24 05:31 Dose: 40 mg Documented By: DINA Rivaroxaban (Rivaroxaban 20 Mg Tablet) 20 mg PO DAILY [facility] Last Admin: 05/15/24 09:46 Dose: 20 mg Documented By: LUKE Senna (Sennosides 8.6 Mg Tablet) 17.2 mg PO BEDTIME PRN PRN Reason: Constipation Last Admin: 05/11/24 08:10 Dose: 8.6 mg Documented By: IVANNA Comments: pt requested one tablet Sertraline HCl (Sertraline Hcl 50 Mg Tablet) 50 mg PO DAILY [facility] Last Admin: 05/15/24 09:46 Dose: 50 mg Documented By: LUKE Sodium Chloride (0.9 % Sodium Chloride Flush 3 Ml Syringe) 3 ml IVFLUSH QSHIFT [facility] Last Admin: 05/15/24 19:33 Dose: Not Given Documented By: DINA Non-Admin Reason: IV Running Labs 05/16/24 07:36 05/16/24 07:36 Labs: Laboratory Results - last 24 hr 05/13/24 05/14/24 05/16/24 09:25 17:29 07:36 MCV 100.6 H MCH 34.4 H MCHC 34.2 RDW 15.7 Plt Count 241 MPV 8.4 L Absolute Nucleated RBC 0.000 Nucleated RBC % (auto) 0.0 Anion Gap 10 L Estim Creat Clear Calc 83.1 Estimated GFR > 60 Random Glucose 108 Calcium 9.3 Magnesium 1.7 Stl C. cayetanensis PCR Not Detected Stool Rotavirus A PCR Not Detected Stl Adenov F 40/41 PCR Not Detected Stool Astrovirus (PCR) Not Detected Stool Campylobacter PCR Not Detected Stool Cryptosporidium PCR Not Detected Stl Sh Tox Pr E STEC PCR Not Detected Stool E coli O157 PCR Not applicable Stl Enterotoxigenic E PCR Not Detected Stool EPEC (PCR) Not Detected Stool EAEC (PCR) Not Detected Stl E. histolytica PCR Not Detected Stool Giardia Lamblia PCR Not Detected Stl P. shigelloides PCR Not Detected Stool Salmonella PCR Not Detected Stool Sapovirus (PCR) Not Detected Stl Shigella/EIEC PCR Not Detected St Y.enterocolitica PCR Not Detected Stool Vibrio (PCR) Not Detected Stl Vibrio cholerae PCR Not Detected Stl Norovirus GI/GII PCR Not Detected CHANNING Screen NEGATIVE CHANNING Titer TNP CHANNING Titer 2 TNP CHANNING Titer 3 TNP CHANNING Pattern TNP CHANNING Pattern 2 TNP CHANNING Pattern 3 TNP Assessment and Plan (1) Paroxysmal atrial fibrillation: Status: Acute Plan 74F PMH hypertension paroxysmal AFib, GERD, polycythemia vera presented with abdominal pain and weight loss found to have diverticulitis with possible colovesicular fistula and positive UA Acute diverticulitis with possible colovesicular fistula and UTI complicated by moderate protein calorie malnutrition and weight loss Plan for conservative therapy for now with antibiotics and to follow up closely with Gastroenterology to see if surgery needed in the future. If surgery will need to be in conjunction with general surgery and Urology, but unclear if even true fistula changed Zosyn to Augmentin (end May 23, 2024) cultures negative persistent N/V plan for EGD today - 05/16/24 atrophic pancreas on imaging d/w gi, likely age related and not contributing to symptoms Acute hypokalemia, hypomagnesemia Replaced, monitor Hypertension Amlodipine, lisinopril, metoprolol Paroxysmal AFib Continue metoprolol, Xarelto Polycythemia vera Hydroxyurea DVT prophylaxis - Xarelto Full code reason for continued hospitalization: awaiting po tolerance Quality Stroke Does the patient have a stroke diagnosis?: No VTE Prior VTE?: No VTE Risk Level:: Medical - moderate - high VTE Device Contraindication: N/A - Device Ordered VTE Drug Contraindication: Treatment Not Indicated
[2024-05-16] MEDS: Sertraline HCL 50 MG TABLET PO (09:14)
[2024-05-16] MEDS: Metoprolol Succinate ER 25 MG TAB.ER.24H PO (09:14)
--- NOTE | 2024-05-16 11:41 | MHC.CLN ---
F/U NPO TODAY FOR EGD PROCEDURE. PRIOR DIET=REGULAR. DOES NOT WANT NUTRITIONAL SUPPLEMENTS. MOST RECENT INTAKE POOR. FOLLOW FOR DIET ADVANCEMENT AND PO INTAKE.
[2024-05-16 12:49] LABS: Immunoglobulin G Subclass 1 498 mg/dL (382-929); Immunoglobulin G Subclass 2 280 mg/dL (241-700); Immunoglobulin G Subclass 3 36 mg/dL (22-178); Immunoglobulin G Subclass 4 31.3 mg/dL (4-86); Immunoglobulin G Total 801 mg/dL (600-1540)
--- NOTE | 2024-05-16 13:58 | PC.NURSE ---
22g left forearm. patent. no leaking.
[2024-05-16] MEDS: Lactated Ringers 1,000 ML 50 ML IVCONT (14:00)
--- NOTE | 2024-05-16 14:17 | P.CONAN_ITS ---
HPI - Anesthesia Eval Consult details Narrative: for EGD. [facility] Active Problems Active Problems: All Active Problems Recurrent UTI (Acute) Cystitis (Acute) Intractable nausea (Acute) [place]-vesical fistula (Acute) Polycythemia vera (Acute) Diverticulitis large intestine (Acute) Hypercalcemia (Acute) Hypomagnesemia (Acute) Adult failure to thrive (Acute) Acute hypokalemia (Acute) Preoperative cardiovascular examination (Acute) Valgus deformity, not elsewhere classified, right knee (Acute) Left rotator cuff tear arthropathy (Acute) HTN (hypertension) (Acute) Paroxysmal atrial fibrillation (Acute) Past Medical History Medical History (Updated 05/11/24 @ 08:50 by Jah Adams MD) Polycythemia vera Postoperative nausea Osteopenia Hx of Lyme disease GERD (gastroesophageal reflux disease) Paroxysmal atrial fibrillation HTN (hypertension) Persistent atrial fibrillation Functional capacity: independent ambulation Family History Family History Father Cancer Stroke Mother Diabetes Family history of problems with anesthesia: No Surgical History Surgical History Hx of section Hx of hysterectomy Hx of colonoscopy Hx of appendectomy History of Problems with Anesthesia: No Social History Social History Household Members: None Housing: Condominium Are you a primary direct care counselor to a significant other at home: Yes ( with Alzheimer's and Parkinson's) Do you presently have visiting nurse or other home services: No Patient Tobacco Use Status: Never used Tobacco Advance Directives Date on File: 03/11/21 service: No Meds Allergies Allergy/AdvReac Type Severity Reaction Status Date / Time diphenhydramine AdvReac Anxiety Verified 05/09/24 14:25 Active Medications: hCurrent Medications Acetaminophen (Acetaminophen 325 Mg Tablet) 975 mg PO Q6H PRN PRN Reason: Pain, Mild 1-3,fever,headache Amlodipine Besylate (Amlodipine Besylate 10 Mg Tablet) 10 mg PO DAILY [facility]; Protocol Last Admin: 05/16/24 09:07 Dose: Not Given Amoxicillin/Clavulanate Potassium (Amoxicillin/Potassium Clav 875 Mg Tablet) 875 mg PO Q12H [facility] Last Admin: 05/16/24 06:29 Dose: Not Given Calcium Carbonate (Calcium Carbonate 750 Mg Tab.Chew) 750 mg PO Q4H PRN PRN Reason: Heartburn Hydroxyurea (Hydroxyurea 500 Mg Capsule) 500 mg PO DAILY [facility] Last Admin: 05/16/24 09:07 Dose: Not Given Lactated Ringer's (Lr) 1,000 mls @ 50 mls/hr IVCONT .Q20H [facility] Last Admin: 05/16/24 14:00 Dose: 50 mls/hr Lisinopril (Lisinopril 40 Mg Tablet) 40 mg PO DAILY [facility]; Protocol Last Admin: 05/16/24 09:07 Dose: Not Given Magnesium Hydroxide (Milk Of Magnesia 30 Ml Oral.Susp) 30 ml PO DAILY PRN PRN Reason: Constipation Melatonin (Melatonin 3 Mg Tablet) 6 mg PO BEDTIME PRN PRN Reason: Insomnia Metoprolol Succinate (Metoprolol Succinate Er 25 Mg Tab.Er.24h) 25 mg PO DAILY [facility]; Protocol Last Admin: 05/16/24 09:14 Dose: 25 mg Omeprazole (Omeprazole 20 Mg Capsule.Dr) 20 mg PO DAILY PRN PRN Reason: Heartburn Last Admin: 05/10/24 17:50 Dose: 20 mg Ondansetron HCl (Ondansetron Hcl 4 Mg/2 Ml Vial) 4 mg IVPUSH Q8H PRN PRN Reason: Nausea and Vomiting Last Admin: 05/15/24 09:50 Dose: 4 mg Ondansetron HCl (Ondansetron Odt 4 Mg Tab.Rapdis) 4 mg TRANSLINGU Q8H PRN PRN Reason: Nausea and Vomiting Last Admin: 05/13/24 18:16 Dose: 4 mg Pantoprazole Sodium (Pantoprazole Sodium 40 Mg/10 Ml Vial) 40 mg IVPUSH BID@0630,1630 [facility] Last Admin: 05/16/24 05:31 Dose: 40 mg Rivaroxaban (Rivaroxaban 20 Mg Tablet) 20 mg PO DAILY [facility] Last Admin: 05/15/24 09:46 Dose: 20 mg Senna (Sennosides 8.6 Mg Tablet) 17.2 mg PO BEDTIME PRN PRN Reason: Constipation Last Admin: 05/11/24 08:10 Dose: 8.6 mg Sertraline HCl (Sertraline Hcl 50 Mg Tablet) 50 mg PO DAILY [facility] Last Admin: 05/16/24 09:14 Dose: 50 mg Sodium Chloride (0.9 % Sodium Chloride Flush 3 Ml Syringe) 3 ml IVFLUSH QSHIFT [facility] Last Admin: 05/16/24 09:08 Dose: Not Given Home Medications ?Medication ?Instructions ?Recorded ?Confirmed ?Last Taken ?Type amlodipine 10 mg tablet 10 mg PO DAILY 03/10/21 05/09/24 08/12/21 History lisinopril 40 mg tablet 40 mg PO DAILY 03/10/21 05/09/24 Unknown History omeprazole 20 mg capsule,delayed 20 mg PO DAILY PRN Heartburn 03/10/21 05/09/24 08/12/21 History release hydroxyurea 500 mg capsule 500 mg PO DAILY 10/25/23 05/09/24 Unknown History prochlorperazine maleate 5 mg 5 mg PO BID PRN Nausea And Vomiting 10/25/23 05/09/24 Unknown History tablet (Compazine) sertraline 50 mg tablet (Zoloft) 50 mg PO DAILY 10/25/23 05/09/24 Unknown History acetaminophen 325 mg tablet 975 mg PO Q8H PRN Pain 05/09/24 05/09/24 Unknown History temazepam 15 mg capsule 15 mg PO BEDTIME PRN Sleep 05/09/24 05/09/24 Unknown History Exam Height,Weight and Vital Signs: Height 5 ft 7 in Weight 78.5 kg Last Vital Signs Temp 98.1 F 05/16/24 13:50 Pulse 68 05/16/24 13:50 Resp 16 05/16/24 13:50 BP 168/79 H 05/16/24 13:50 Pulse Ox 98 05/16/24 13:50 O2 Del Method Room Air 05/16/24 13:50 Pertinent Lab Results Pertinent Lab Results: Laboratory Tests 05/09/24 05/09/24 05/09/24 14:36 18:38 20:19 WBC 11.9 H RBC 4.05 L D Hgb 13.9 Hct 40.4 MCV 99.8 H MCH 34.3 H MCHC 34.4 RDW 15.9 Plt Count 398 D MPV 8.3 L Immature Gran % (Auto) 0.8 H Neut % (Auto) 75.6 H Lymph % (Auto) 17.0 L [place] % (Auto) 6.1 Eos % (Auto) 0.1 Baso % (Auto) 0.4 Lymph # (Auto) 2.0 [place] # (Auto) 0.7 Eos # (Auto) 0.0 Baso # (Auto) 0.1 Abs Immat Gran (auto) 0.10 H Absolute Neuts (auto) 9.0 H Absolute Nucleated RBC 0.000 Nucleated RBC % (auto) 0.0 Hold Purple Top Sodium 137 Potassium 3.0 L Chloride 105 Carbon Dioxide 17 L Anion Gap 18 BUN 19 H Creatinine 1.10 Estim Creat Clear Calc 44.9 Estimated GFR 49 Random Glucose 139 H Lactic Acid 1.7 Calcium 11.3 H D Magnesium 1.5 L Iron TIBC % Saturation Unsat Iron Binding Total Bilirubin 1.5 H Direct Bilirubin AST 20 ALT 12 Alkaline Phosphatase 53 Troponin I High Sens 12.9 Total Protein 6.6 Albumin 3.6 Lipase 6 L TSH 1.76 Urine Color Dark Yellow Urine Appearance Cloudy Urine pH 6.0 Ur Specific [place] >= 1.030 H Urine Protein Negative Urine Glucose (UA) Negative Urine Ketones 40 Urine Blood Negative Urine Nitrite Positive H Ur Leukocyte Esterase Moderate (2+) H Urine RBC 0-2 Urine WBC >50 H Ur Squamous Epith Cells 6-10 Urine Bacteria None Seen Hyaline Casts 6-10 Stool Leukocytes, Qual Stl C. cayetanensis PCR Stool Rotavirus A PCR Stl Adenov F 40/ PCR Stool Astrovirus (PCR) Stool Campylobacter PCR Stool Cryptosporidium PCR Stl Sh Tox Pr E STEC PCR Stool E coli O157 PCR Stl Enterotoxigenic E PCR Stool EPEC (PCR) Stool EAEC (PCR) Stl E. histolytica PCR Stool Giardia Lamblia PCR Stl P. shigelloides PCR Stool Salmonella PCR Stool Sapovirus (PCR) Stl Shigella/EIEC PCR St Y.enterocolitica PCR Stool Vibrio (PCR) Stl Vibrio cholerae PCR Stl Norovirus GI/GII PCR IgG Total IgG Subclass 1 IgG Subclass 2 IgG Subclass 3 IgG Subclass 4 [place] Screen [place] Titer [place] Titer 2 [place] Titer 3 [place] Pattern [place] Pattern 2 [place] Pattern 3 C. difficile Tox B Gene Influenza Type A (PCR) NEGATIVE Influenza Type B (PCR) NEGATIVE RSV RNA Qual (PCR) NEGATIVE SARS-CoV-2 RNA (RT-PCR) NEGATIVE 05/10/24 05/11/24 05/12/24 05:36 06:49 06:24 WBC 7.4 6.7 6.9 RBC 3.42 L 3.36 L 3.35 L Hgb 11.9 L 11.6 L 11.3 L Hct 33.9 L 34.2 L 33.9 L MCV 99.1 H 101.8 H 101.2 H MCH 34.8 H 34.5 H 33.7 H MCHC 35.1 H 33.9 33.3 RDW 16.0 15.9 15.9 Plt Count 287 D 279 260 MPV 8.4 L 8.4 L 8.5 L Immature Gran % (Auto) 0.9 H 0.7 H 0.9 H Neut % (Auto) 64.5 64.1 60.0 Lymph % (Auto) 26.9 27.3 32.1 [place] % (Auto) 6.9 6.6 5.5 Eos % (Auto) 0.5 0.9 0.9 Baso % (Auto) 0.3 0.4 0.6 Lymph # (Auto) 2.0 1.8 2.3 [place] # (Auto) 0.5 0.4 0.4 Eos # (Auto) 0.0 0.1 0.1 Baso # (Auto) 0.0 0.0 0.0 Abs Immat Gran (auto) 0.07 H 0.05 H 0.06 H Absolute Neuts (auto) 4.8 4.3 4.2 Absolute Nucleated RBC 0.000 0.000 0.000 Nucleated RBC % (auto) 0.0 0.0 0.0 Hold Purple Top SEE NOTE Sodium 138 135 136 Potassium 3.0 L 3.3 4.4 D Chloride 109 H 107 110 H Carbon Dioxide 18 L 20 L 18 L Anion Gap 14 11 L 12 BUN 13 10 11 Creatinine 1.00 0.89 0.80 Estim Creat Clear Calc 49.4 61.6 68.6 Estimated GFR 55 > 60 > 60 Random Glucose 103 90 94 Lactic Acid Calcium 9.7 D 9.4 9.5 Magnesium 1.9 1.6 2.1 Iron TIBC % Saturation Unsat Iron Binding Total Bilirubin Direct Bilirubin AST ALT Alkaline Phosphatase Troponin I High Sens Total Protein Albumin Lipase TSH Urine Color Urine Appearance Urine pH Ur Specific [place] Urine Protein Urine Glucose (UA) Urine Ketones Urine Blood Urine Nitrite Ur Leukocyte Esterase Urine RBC Urine WBC Ur Squamous Epith Cells Urine Bacteria Hyaline Casts Stool Leukocytes, Qual Stl C. cayetanensis PCR Stool Rotavirus A PCR Stl Adenov F 40/ PCR Stool Astrovirus (PCR) Stool Campylobacter PCR Stool Cryptosporidium PCR Stl Sh Tox Pr E STEC PCR Stool E coli O157 PCR Stl Enterotoxigenic E PCR Stool EPEC (PCR) Stool EAEC (PCR) Stl E. histolytica PCR Stool Giardia Lamblia PCR Stl P. shigelloides PCR Stool Salmonella PCR Stool Sapovirus (PCR) Stl Shigella/EIEC PCR St Y.enterocolitica PCR Stool Vibrio (PCR) Stl Vibrio cholerae PCR Stl Norovirus GI/GII PCR IgG Total IgG Subclass 1 IgG Subclass 2 IgG Subclass 3 IgG Subclass 4 [place] Screen [place] Titer [place] Titer 2 [place] Titer 3 [place] Pattern [place] Pattern 2 [place] Pattern 3 C. difficile Tox B Gene Influenza Type A (PCR) Influenza Type B (PCR) RSV RNA Qual (PCR) SARS-CoV-2 RNA (RT-PCR) 05/13/24 05/14/24 05/14/24 09:25 17:29 17:30 WBC 7.3 RBC 3.36 L Hgb 11.6 L Hct 34.3 L MCV 102.1 H MCH 34.5 H MCHC 33.8 RDW 15.9 Plt Count 281 MPV 8.5 L Immature Gran % (Auto) Neut % (Auto) Lymph % (Auto) [place] % (Auto) Eos % (Auto) Baso % (Auto) Lymph # (Auto) [place] # (Auto) Eos # (Auto) Baso # (Auto) Abs Immat Gran (auto) Absolute Neuts (auto) Absolute Nucleated RBC 0.000 Nucleated RBC % (auto) 0.0 Hold Purple Top Sodium 136 Potassium 3.5 D Chloride 112 H Carbon Dioxide 17 L Anion Gap 11 L BUN 10 Creatinine 0.76 Estim Creat Clear Calc 72.2 Estimated GFR > 60 Random Glucose 136 H Lactic Acid Calcium 9.5 Magnesium Iron 105 TIBC 158 L % Saturation 66 H Unsat Iron Binding 53 Total Bilirubin 1.2 H Direct Bilirubin 0.5 AST 20 ALT 6 Alkaline Phosphatase 43 Troponin I High Sens Total Protein 5.5 L Albumin 3.0 L Lipase TSH Urine Color Urine Appearance Urine pH Ur Specific [place] Urine Protein Urine Glucose (UA) Urine Ketones Urine Blood Urine Nitrite Ur Leukocyte Esterase Urine RBC Urine WBC Ur Squamous Epith Cells Urine Bacteria Hyaline Casts Stool Leukocytes, Qual NEGATIVE Stl C. cayetanensis PCR Not Detected Stool Rotavirus A PCR Not Detected Stl Adenov F 40/41 PCR Not Detected Stool Astrovirus (PCR) Not Detected Stool Campylobacter PCR Not Detected Stool Cryptosporidium PCR Not Detected Stl Sh Tox Pr E STEC PCR Not Detected Stool E coli O157 PCR Not applicable Stl Enterotoxigenic E PCR Not Detected Stool EPEC (PCR) Not Detected Stool EAEC (PCR) Not Detected Stl E. histolytica PCR Not Detected Stool Giardia Lamblia PCR Not Detected Stl P. shigelloides PCR Not Detected Stool Salmonella PCR Not Detected Stool Sapovirus (PCR) Not Detected Stl Shigella/EIEC PCR Not Detected St Y.enterocolitica PCR Not Detected Stool Vibrio (PCR) Not Detected Stl Vibrio cholerae PCR Not Detected Stl Norovirus GI/GII PCR Not Detected IgG Total 801 IgG Subclass 1 498 IgG Subclass 2 280 IgG Subclass 3 36 IgG Subclass 4 31.3 [place] Screen NEGATIVE [place] Titer TNP [place] Titer 2 TNP [place] Titer 3 TNP [place] Pattern TNP [place] Pattern 2 TNP [place] Pattern 3 TNP C. difficile Tox B Gene NEGATIVE Influenza Type A (PCR) Influenza Type B (PCR) RSV RNA Qual (PCR) SARS-CoV-2 RNA (RT-PCR) 05/15/24 05/16/24 06:27 07:36 WBC 5.4 4.8 RBC 3.30 L 3.37 L Hgb 11.5 L 11.6 L Hct 33.2 L 33.9 L MCV 100.6 H 100.6 H MCH 34.8 H 34.4 H MCHC 34.6 34.2 RDW 15.7 15.7 Plt Count 255 241 MPV 8.3 L 8.4 L Immature Gran % (Auto) Neut % (Auto) Lymph % (Auto) [place] % (Auto) Eos % (Auto) Baso % (Auto) Lymph # (Auto) [place] # (Auto) Eos # (Auto) Baso # (Auto) Abs Immat Gran (auto) Absolute Neuts (auto) Absolute Nucleated RBC 0.000 0.000 Nucleated RBC % (auto) 0.0 0.0 Hold Purple Top Sodium 135 137 Potassium 3.2 L 3.5 Chloride 112 H 112 H Carbon Dioxide 21 L 19 L Anion Gap 5 L 10 L BUN 3 L 4 L Creatinine 0.67 0.66 Estim Creat Clear Calc 81.9 83.1 Estimated GFR > 60 > 60 Random Glucose 117 H 108 Lactic Acid Calcium 9.3 9.3 Magnesium 1.4 L* 1.7 Iron TIBC % Saturation Unsat Iron Binding Total Bilirubin 1.0 Direct Bilirubin 0.4 AST 22 ALT < 6 Alkaline Phosphatase 43 Troponin I High Sens Total Protein 5.2 L Albumin 2.7 L Lipase TSH Urine Color Urine Appearance Urine pH Ur Specific [place] Urine Protein Urine Glucose (UA) Urine Ketones Urine Blood Urine Nitrite Ur Leukocyte Esterase Urine RBC Urine WBC Ur Squamous Epith Cells Urine Bacteria Hyaline Casts Stool Leukocytes, Qual Stl C. cayetanensis PCR Stool Rotavirus A PCR Stl Adenov F 40/41 PCR Stool Astrovirus (PCR) Stool Campylobacter PCR Stool Cryptosporidium PCR Stl Sh Tox Pr E STEC PCR Stool E coli O157 PCR Stl Enterotoxigenic E PCR Stool EPEC (PCR) Stool EAEC (PCR) Stl E. histolytica PCR Stool Giardia Lamblia PCR Stl P. shigelloides PCR Stool Salmonella PCR Stool Sapovirus (PCR) Stl Shigella/EIEC PCR St Y.enterocolitica PCR Stool Vibrio (PCR) Stl Vibrio cholerae PCR Stl Norovirus GI/GII PCR IgG Total IgG Subclass 1 IgG Subclass 2 IgG Subclass 3 IgG Subclass 4 [place] Screen [place] Titer [place]ANN[place] Titer 2 [place] Titer 3 [place] Pattern [place] Pattern 2 [place] Pattern 3 C. difficile Tox B Gene Influenza Type A (PCR) Influenza Type B (PCR) RSV RNA Qual (PCR) SARS-CoV-2 RNA (RT-PCR) Airway Mallampati Class: II TM Dist: <=3cm Neck ROM: Full Loose/Missing/Broken Teeth: No Heart: ok Lungs: ok Assessment and Plan Assessment Anesthesia Assessment: Anesthesia Plan Discussed and Chart Reviewed Final Anesthetic Review Family History of Problems with Anesthesia: No History of Problems with Anesthesia: No NPO: Yes ASA Class: III Final Preanesthetic Review: No Changes in Pt Med Stat, Meds/Allgs Chart Reviewed, Consent Obtained/Reviewed and Anes Risks/Benef Reviewed Patient Risk: High Procedure Risk: Intermediate Anesthetic Plan Anesthetic Plan: Agree w/ Assess. and Plan and TIVA Disposition: Standard PACU
--- NOTE | 2024-05-16 14:17 | MHC.SHP ---
Pre-Procedural Eval Section A - 24 Hr Update-Section A only Date of Service: 05/16/24 The patient is an INPATIENT: No Changes since office visit: No Cold of Flu in the past 2 weeks, No New Medical Problems, No Changes in Medication and No Patient answered all questions The patient has been examined within 24 hours of the surgical procedure. The History & Physical has been completed within 30 days and I have reviewed it.: Yes Section B - Complete if H&P > 30 days Chief Complaint: colovesicular fistula, weight loss, weakness Allergies: Allergies Allergy/AdvReac Type Severity Reaction Status Date / Time diphenhydramine AdvReac Anxiety Verified 05/09/24 14:25 Plan I have reviewed the history and physical and performed a pertinent physical examination on my patient. No changes have occurred unless specified. Time Spent With Patient Time: Total time managing care of this patient today ____ minutes.
--- NOTE | 2024-05-16 14:48 | PM.EVENT ---
Event Note Date of Service: 05/16/24 Event Note: EGD dictated multiple small 5mm duodenal ulcers in 2nd portion bx obtained advance diet f/u bx results cont ppi Time Spent With Patient Time: Total time managing care of this patient today ____ minutes.
--- NOTE | 2024-05-16 15:47 | OP_ITS ---
DATE OF SERVICE: 05/16/2024 SURGEON: Simone Craig MD INDICATIONS: Nausea and vomiting. PREOPERATIVE DIAGNOSIS: POSTOPERATIVE DIAGNOSIS: PROCEDURE PERFORMED: Upper endoscopy with biopsy. ESTIMATED BLOOD LOSS: COMPLICATIONS: ANESTHESIA: Monitored anesthesia care. ASSISTANTS: SPECIMENS: DESCRIPTION OF PROCEDURE: A history and physical performed. The risks and benefits of the procedure were explained to the patient. Informed consent was obtained. The patient was placed in left lateral decubitus position. The Olympus videogastroscope was introduced into the esophagus, stomach, and duodenum. Examination was performed. The scope was removed. She tolerated the procedure well and was returned to recovery area in stable condition. FINDINGS: Esophagus: The esophagus was normal. Biopsies were obtained from the EG junction. There was of a small sliding hiatal hernia. Stomach: The stomach showed several benign-appearing gastric polyps in the body and fundus. Antral biopsies were obtained. Duodenum: In the 2nd portion, there were multiple benign-appearing small ulcerations measuring approximately 5 mm. There was associated duodenitis. Biopsies were obtained from the 2nd portion. IMPRESSION: Duodenal ulcers. RECOMMENDATION: Follow up the biopsy results. MD SPENCER Lin/[facility] / [phone]
[2024-05-16] MEDS: 0.9 % Sodium Chloride Flush 3 ML SYRINGE IVFLUSH ×2 (16:04→19:54)
[2024-05-16] MEDS: Amoxicillin/Potassium Clav 875 MG TABLET PO (18:14)
[2024-05-16] MEDS: amLODIPine Besylate 10 MG TABLET PO (19:53)
[2024-05-16] MEDS: lisinopriL 40 MG TABLET PO (19:53)
[2024-05-17] VITALS (7 sets, daily range): BP systolic 116–138; BP diastolic 67–86; PULSE 63–75; RESP 14–18; TEMP 36.4–37.2; O2SAT 96–99
[2024-05-17] MEDS: Amoxicillin/Potassium Clav 875 MG TABLET PO ×2 (06:09→18:25)
[2024-05-17] MEDS: Pantoprazole Sodium 40 MG/10 ML VIAL IVPUSH ×2 (06:09→15:48)
[2024-05-17 06:47] LABS: Anion Gap 11 (12-20); Blood Urea Nitrogen 3 mg/dL (9-16); Calcium 10.1 mg/dL (8.4-10.2); Carbon Dioxide 22 mmol/L (22-29); Chloride 109 mmol/L (96-108); Creatinine Clr Calc Pharmacy 85.7; Estimated Glomerular Filt Rate > 60; Glucose Random 98 mg/dL (60-115); Potassium 3.6 mmol/L (3.3-5.1); Sodium 138 mmol/L (135-145)
[2024-05-17 06:50] LABS: Hematocrit 35.4 % (37.0-47.0); Hemoglobin 12.5 g/dl (12.0-16.0); Mean Corpuscular HGB Conc 35.3 g/dl (31.0-35.0); Mean Corpuscular Hemoglobin 34.9 pg (27.0-33.0); Mean Corpuscular Volume 98.9 fL (80.0-98.0); Mean Platelet Volume 8.3 fL (9.4-12.3); Platelet Count 262 X10*3/uL (160-400); Red Blood Count 3.58 X10*6/uL (4.20-5.50); Red Cell Distribution Width 15.8 % (11.0-16.0); White Blood Count 5.2 X10*3/uL (4.8-10.8)
--- NOTE | 2024-05-17 08:12 | HO.POSTANES ---
Post Anesthesia Evaluation Post Anesthesia Evaluation Date of Service: 05/17/24 Vital Signs: Vital Signs Temp Pulse Resp BP Pulse Ox O2 Del Method 05/17/24 07:32 97.7 F 66 16 129/77 98 Room Air 05/17/24 03:27 97.6 F 63 16 138/74 98 Room Air 05/16/24 23:46 97.6 F 62 16 130/64 97 Room Air Anesthesia: TIVA Mental Status: Awake Pain Control: Satisfactory Nausea/Vomiting: None Hydration: Adequate Anesthesia-Related Issues: No Anes. Related Issues
[2024-05-17] MEDS: lisinopriL 40 MG TABLET PO (09:12)
[2024-05-17] MEDS: Metoprolol Succinate ER 25 MG TAB.ER.24H PO (09:12)
[2024-05-17] MEDS: Sertraline HCL 50 MG TABLET PO (09:12)
[2024-05-17] MEDS: amLODIPine Besylate 10 MG TABLET PO (09:12)
[2024-05-17] MEDS: Rivaroxaban 20 MG TABLET PO (09:12)
[2024-05-17] MEDS: 0.9 % Sodium Chloride Flush 3 ML SYRINGE IVFLUSH ×3 (09:12→22:00)
--- NOTE | 2024-05-17 10:34 | P.PNGI_ITS ---
Subjective Subjective Date of Service: 05/17/24 Interval History: no vomiting some nausea Critical Care Time (minutes): 0 Physical Exam 2 Vital Signs: Vital Signs: Last Vital Signs Temp 97.7 F 05/17/24 07:32 Pulse 66 05/17/24 09:12 Resp 16 05/17/24 07:32 BP 129/77 05/17/24 09:12 Pulse Ox 98 05/17/24 07:32 O2 Del Method Room Air 05/17/24 07:32 BMI result Body Mass Index 27.1 GI: Other: abdomen is soft and nontender Objective Data Labs 05/17/24 06:13 05/17/24 06:13 Microbiology Microbiology Results: Microbiology 05/09/24 18:38 Blood - Venous Blood Culture - Final No growth after 5 days. 05/09/24 18:38 Blood - Venous Blood Culture - Final No growth after 5 days. 05/09/24 20:35 Urine clean catch - Clean Catch Midstream Urine Culture - Final Procedures Date of Service Date of Service: 05/17/24 Progress Note: A&P Assessment and plan (1) Recurrent UTI: Status: Acute Assessment and Plan: reviewed EGD findings with Pat continue ppi, antiemetics. f/u bx results Time Spent With Patient Time: Total time managing care of this patient today ____ minutes. Quality Stroke Does the patient have a stroke diagnosis?: No VTE Prior VTE?: No VTE Risk Level:: Medical - moderate - high VTE Device Contraindication: N/A - Device Ordered VTE Drug Contraindication: Treatment Not Indicated
[2024-05-17] MEDS: ondansetron HCL 4 MG/2 ML VIAL IVPUSH (10:43)
--- NOTE | 2024-05-17 10:55 | P.PNIM_ITS ---
Subjective Subjective Date of Service: 05/17/24 Interval History: Seen and evaluated this morning Tolerating diet , advancing slowlu pain better EGD showed DU no other evebts Review of Systems Review of Systems: Yes all other systems are reviewed and are negative Physical Exam 2 Vital Signs: Vital Signs: Last Vital Signs Temp 97.7 F 05/17/24 07:32 Pulse 66 05/17/24 09:12 Resp 16 05/17/24 07:32 BP 129/77 05/17/24 09:12 Pulse Ox 98 05/17/24 07:32 O2 Del Method Room Air 05/17/24 07:32 BMI result Body Mass Index 27.1 Const: Other: Constitutional : Awake, interactive, not in distress Neck : Normal inspection, Supple Cardiovascular : RRR, no JVP, no lower extremity edema Respiratory : good bilateral air entry, no crackles, wheezes or rhonchi Gastrointestinal: soft, lax, Normal bowel sounds,mild LLQ tenderness Skin : Warm, Dry Neurological : Alert & oriented x3, No focal deficit Objective Data Active Medications Acetaminophen (Acetaminophen 325 Mg Tablet) 975 mg PO Q6H PRN PRN Reason: Pain, Mild 1-3,fever,headache Amlodipine Besylate (Amlodipine Besylate 10 Mg Tablet) 10 mg PO DAILY [facility]; Protocol Last Admin: 05/17/24 09:12 Dose: 10 mg Documented By: YVONNE Amoxicillin/Clavulanate Potassium (Amoxicillin/Potassium Clav 875 Mg Tablet) 875 mg PO Q12H [facility] Last Admin: 05/17/24 06:09 Dose: 875 mg Documented By: ANTOINC Calcium Carbonate (Calcium Carbonate 750 Mg Tab.Chew) 750 mg PO Q4H PRN PRN Reason: Heartburn Hydroxyurea (Hydroxyurea 500 Mg Capsule) 500 mg PO DAILY [facility] Last Admin: 05/17/24 09:13 Dose: Not Given Documented By: YVONNE Non-Admin Reason: pt states no longer takes Lactated Ringer's (Lr) 1,000 mls @ 50 mls/hr IVCONT .Q20H [facility] Last Infusion: 05/17/24 10:47 Dose: Infused Documented By: YVONNE Lisinopril (Lisinopril 40 Mg Tablet) 40 mg PO DAILY [facility]; Protocol Last Admin: 05/17/24 09:12 Dose: 40 mg Documented By: YVONNE Magnesium Hydroxide (Milk Of Magnesia 30 Ml Oral.Susp) 30 ml PO DAILY PRN PRN Reason: Constipation Melatonin (Melatonin 3 Mg Tablet) 6 mg PO BEDTIME PRN PRN Reason: Insomnia Metoprolol Succinate (Metoprolol Succinate Er 25 Mg Tab.Er.24h) 25 mg PO DAILY [facility]; Protocol Last Admin: 05/17/24 09:12 Dose: 25 mg Documented By: YVONNE Naloxone HCl (Naloxone Hcl 0.4 Mg/Ml Vial) 0.04 mg IVPUSH Q5M PRN PRN Reason: Excessive sedation or RR < 8 Omeprazole (Omeprazole 20 Mg Capsule.Dr) 20 mg PO DAILY PRN PRN Reason: Heartburn Last Admin: 05/10/24 17:50 Dose: 20 mg Documented By: SUSIE Ondansetron HCl (Ondansetron Hcl 4 Mg/2 Ml Vial) 4 mg IVPUSH Q8H PRN PRN Reason: Nausea and Vomiting Last Admin: 05/17/24 10:43 Dose: 4 mg Documented By: YVONNE Ondansetron HCl (Ondansetron Odt 4 Mg Tab.Rapdis) 4 mg TRANSLINGU Q8H PRN PRN Reason: Nausea and Vomiting Last Admin: 05/13/24 18:16 Dose: 4 mg Documented By: JAMMIE Pantoprazole Sodium (Pantoprazole Sodium 40 Mg/10 Ml Vial) 40 mg IVPUSH BID@0630,1630 [facility] Last Admin: 05/17/24 06:09 Dose: 40 mg Documented By: ANTSTORM Rivaroxaban (Rivaroxaban 20 Mg Tablet) 20 mg PO DAILY [facility] Last Admin: 05/17/24 09:12 Dose: 20 mg Documented By: YVONNE Senna (Sennosides 8.6 Mg Tablet) 17.2 mg PO BEDTIME PRN PRN Reason: Constipation Last Admin: 05/11/24 08:10 Dose: 8.6 mg Documented By: IVANNA Comments: pt requested one tablet Sertraline HCl (Sertraline Hcl 50 Mg Tablet) 50 mg PO DAILY [facility] Last Admin: 05/17/24 09:12 Dose: 50 mg Documented By: YVONNE Sodium Chloride (0.9 % Sodium Chloride Flush 3 Ml Syringe) 3 ml IVFLUSH QSHIFT [facility] Last Admin: 05/17/24 09:12 Dose: 3 ml Documented By: YVONNE Labs 05/17/24 06:13 05/17/24 06:13 Labs: Laboratory Results - last 24 hr 05/13/24 05/17/24 09:25 06:13 MCV 98.9 H MCH 34.9 H MCHC 35.3 H RDW 15.8 Plt Count 262 MPV 8.3 L Absolute Nucleated RBC 0.000 Nucleated RBC % (auto) 0.0 Anion Gap 11 L Estim Creat Clear Calc 85.7 Estimated GFR > 60 Random Glucose 98 Calcium 10.1 D IgG Total 801 IgG Subclass 1 498 IgG Subclass 2 280 IgG Subclass 3 36 IgG Subclass 4 31.3 Assessment and Plan (1) Cystitis: Status: Acute (2) Intractable nausea: Status: Acute (3) Hardy-vesical fistula: Status: Acute (4) Duodenal ulcer: Status: Acute Plan 74F PMH hypertension paroxysmal AFib, GERD, polycythemia vera presented with abdominal pain and weight loss found to have diverticulitis with possible colovesicular fistula and positive UA Duodenal ulcers with persistent N\V Symptomatic noted on EGD Pantoprazole IV F\U with GI as OP Acute diverticulitis with possible colovesicular fistula and UTI complicated by moderate protein calorie malnutrition and weight loss follow up closely with Gastroenterology to see if surgery needed in the future. If surgery will need to be in conjunction with general surgery and Urology, but unclear if even true fistula changed Zosyn to Augmentin (end May 23, 2024) cultures negative atrophic pancreas on imaging d/w gi, likely age related and not contributing to symptoms Acute hypokalemia, hypomagnesemia Replaced, monitor Hypertension Amlodipine, lisinopril, metoprolol Paroxysmal AFib Continue metoprolol, Xarelto Polycythemia vera Hydroxyurea DVT prophylaxis - Xarelto Full code reason for continued hospitalization: advancing diet as tolerated Quality Stroke Does the patient have a stroke diagnosis?: No VTE Prior VTE?: No VTE Risk Level:: Medical - moderate - high VTE Device Contraindication: N/A - Device Ordered VTE Drug Contraindication: Treatment Not Indicated
[2024-05-17] MEDS: Prochlorperazine Edisylate 10 MG/2 ML VIAL 5 MG IVPUSH (17:31)
[2024-05-18] VITALS (8 sets, daily range): BP systolic 123–142; BP diastolic 69–82; PULSE 66–77; RESP 14–18; TEMP 36.2–36.8; O2SAT 97–99
[2024-05-18] MEDS: Amoxicillin/Potassium Clav 875 MG TABLET PO ×2 (05:31→18:32)
[2024-05-18] MEDS: Pantoprazole Sodium 40 MG/10 ML VIAL IVPUSH ×2 (05:31→21:19)
[2024-05-18 06:55] LABS: MANUAL DIFF FLAG NO
[2024-05-18 06:59] LABS: Basophils Percent Auto 0.4 % (0-2); Eosinophils Percent Auto 0.6 % (0-4); Hematocrit 32.2 % (37.0-47.0); Hemoglobin 11.2 g/dl (12.0-16.0); Imm Gran Abs Auto 0.05 X10*3/uL (0.00-0.03); Imm Gran Pct Auto 1.1 % (0.0-0.4); Lymphocytes Absolute Auto 1.9 X10*3/uL (1.2-4.9); Lymphocytes Percent Auto 38.9 % (20-40); Mean Corpuscular HGB Conc 34.8 g/dl (31.0-35.0); Mean Corpuscular Hemoglobin 34.7 pg (27.0-33.0); Mean Corpuscular Volume 99.7 fL (80.0-98.0); Mean Platelet Volume 8.3 fL (9.4-12.3); Monocytes Absolute Auto 0.4 X10*3/uL (0.1-1.2); Monocytes Percent Auto 8.4 % (2-11); Neutrophils Absolute Auto 2.4 x10*3/uL (2.0-8.3); Neutrophils Percent Auto 50.6 % (45-73); Platelet Count 229 X10*3/uL (160-400); Red Blood Count 3.23 X10*6/uL (4.20-5.50); Red Cell Distribution Width 15.8 % (11.0-16.0); White Blood Count 4.8 X10*3/uL (4.8-10.8)
[2024-05-18 07:28] LABS: Anion Gap 10 (12-20); Blood Urea Nitrogen 4 mg/dL (9-16); Calcium 10.1 mg/dL (8.4-10.2); Carbon Dioxide 21 mmol/L (22-29); Chloride 107 mmol/L (96-108); Creatinine Clr Calc Pharmacy 69.4; Estimated Glomerular Filt Rate > 60; Glucose Random 104 mg/dL (60-115); Potassium 3.3 mmol/L (3.3-5.1); Sodium 135 mmol/L (135-145)
[2024-05-18] MEDS: lisinopriL 40 MG TABLET PO (08:13)
[2024-05-18] MEDS: amLODIPine Besylate 10 MG TABLET PO (08:13)
[2024-05-18] MEDS: 0.9 % Sodium Chloride Flush 3 ML SYRINGE IVFLUSH ×3 (08:13→20:50)
[2024-05-18] MEDS: Sertraline HCL 50 MG TABLET PO (08:14)
[2024-05-18] MEDS: Rivaroxaban 20 MG TABLET PO (08:14)
[2024-05-18] MEDS: Metoprolol Succinate ER 25 MG TAB.ER.24H PO (08:14)
[2024-05-18] MEDS: ondansetron HCL 4 MG/2 ML VIAL IVPUSH (08:54)
--- NOTE | 2024-05-18 13:10 | MHC.CLN ---
F/U PO INTAKE FOLLOW 25, 75, 0% X 3 MEALS DIET RX: REGULAR-APPROPRIATE PT REFUSING SUPPLEMENTS BUT PO INTAKE IS POOR PT RECEPTIVE TO MAGIC CUP-WILL TRIAL MONITOR PO INTAKE AND ENCOURAGE SUPPLEMENT
--- NOTE | 2024-05-18 16:05 | HO.PM.IMPN ---
Subjective Subjective Date of Service: 05/18/24 Interval History: Seen and evaluated this morning still reporting nausea nad vomiting, Tolerating diet , advancing slowly pain better no other evebts Review of Systems Review of Systems: Yes all other systems are reviewed and are negative Physical Exam Vital Signs: Vital Signs: Last Vital Signs Temp 98.1 F 05/18/24 15:45 Pulse 77 05/18/24 15:45 Resp 16 05/18/24 15:45 BP 137/74 05/18/24 15:45 Pulse Ox 98 05/18/24 15:45 O2 Del Method Room Air 05/18/24 15:45 BMI result Body Mass Index 27.1 Const: Other: Constitutional : Awake, interactive, not in distress Neck : Normal inspection, Supple Cardiovascular : RRR, no JVP, no lower extremity edema Respiratory : good bilateral air entry, no crackles, wheezes or rhonchi Gastrointestinal: soft, lax, Normal bowel sounds,mild LLQ tenderness Skin : Warm, Dry Neurological : Alert & oriented x3, No focal deficit Objective Data Active Medications Acetaminophen (Acetaminophen 325 Mg Tablet) 975 mg PO Q6H PRN PRN Reason: Pain, Mild 1-3,fever,headache Amlodipine Besylate (Amlodipine Besylate 10 Mg Tablet) 10 mg PO DAILY [facility]; Protocol Last Admin: 05/18/24 08:13 Dose: 10 mg Documented By: YVONNE Amoxicillin/Clavulanate Potassium (Amoxicillin/Potassium Clav 875 Mg Tablet) 875 mg PO Q12H [facility] Last Admin: 05/18/24 05:31 Dose: 875 mg Documented By: CASTILLeobardo Calcium Carbonate (Calcium Carbonate 750 Mg Tab.Chew) 750 mg PO Q4H PRN PRN Reason: Heartburn Hydroxyurea (Hydroxyurea 500 Mg Capsule) 500 mg PO DAILY [facility] Last Admin: 05/18/24 08:14 Dose: Not Given Documented By: YVONNE Non-Admin Reason: pt states she no longer takes Lisinopril (Lisinopril 40 Mg Tablet) 40 mg PO DAILY [facility]; Protocol Last Admin: 05/18/24 08:13 Dose: 40 mg Documented By: YVONNE Magnesium Hydroxide (Milk Of Magnesia 30 Ml Oral.Susp) 30 ml PO DAILY PRN PRN Reason: Constipation Melatonin (Melatonin 3 Mg Tablet) 6 mg PO BEDTIME PRN PRN Reason: Insomnia Metoprolol Succinate (Metoprolol Succinate Er 25 Mg Tab.Er.24h) 25 mg PO DAILY [facility]; Protocol Last Admin: 05/18/24 08:14 Dose: 25 mg Documented By: YVONNE Naloxone HCl (Naloxone Hcl 0.4 Mg/Ml Vial) 0.04 mg IVPUSH Q5M PRN PRN Reason: Excessive sedation or RR < 8 Omeprazole (Omeprazole 20 Mg Capsule.Dr) 20 mg PO DAILY PRN PRN Reason: Heartburn Last Admin: 05/10/24 17:50 Dose: 20 mg Documented By: SUSIE Ondansetron HCl (Ondansetron Hcl 4 Mg/2 Ml Vial) 4 mg IVPUSH Q8H PRN PRN Reason: Nausea and Vomiting Last Admin: 05/18/24 08:54 Dose: 4 mg Documented By: YVONNE Ondansetron HCl (Ondansetron Odt 4 Mg Tab.Rapdis) 4 mg TRANSLINGU Q8H PRN PRN Reason: Nausea and Vomiting Last Admin: 05/13/24 18:16 Dose: 4 mg Documented By: JAMMIE Rivaroxaban (Rivaroxaban 20 Mg Tablet) 20 mg PO DAILY [facility] Last Admin: 05/18/24 08:14 Dose: 20 mg Documented By: YVONNE Senna (Sennosides 8.6 Mg Tablet) 17.2 mg PO BEDTIME PRN PRN Reason: Constipation Last Admin: 05/11/24 08:10 Dose: 8.6 mg Documented By: IVANNA Comments: pt requested one tablet Sertraline HCl (Sertraline Hcl 50 Mg Tablet) 50 mg PO DAILY [facility] Last Admin: 05/18/24 08:14 Dose: 50 mg Documented By: YVONNE Sodium Chloride (0.9 % Sodium Chloride Flush 3 Ml Syringe) 3 ml IVFLUSH QSHIFT [facility] Last Admin: 05/18/24 15:44 Dose: 3 ml Documented By: YVONNE Labs 05/18/24 06:27 05/18/24 06:27 Labs: Laboratory Results - last 24 hr 05/18/24 06:27 MCV 99.7 H MCH 34.7 H MCHC 34.8 RDW 15.8 Plt Count 229 MPV 8.3 L Immature Gran % (Auto) 1.1 H Neut % (Auto) 50.6 Lymph % (Auto) 38.9 [place] % (Auto) 8.4 Eos % (Auto) 0.6 Baso % (Auto) 0.4 Lymph # (Auto) 1.9 [place] # (Auto) 0.4 Eos # (Auto) 0.0 Baso # (Auto) 0.0 Abs Immat Gran (auto) 0.05 H Absolute Neuts (auto) 2.4 Absolute Nucleated RBC 0.000 Nucleated RBC % (auto) 0.0 Anion Gap 10 L Estim Creat Clear Calc 69.4 Estimated GFR > 60 Random Glucose 104 Calcium 10.1 Assessment and Plan (1) Duodenal ulcer: Status: Acute (2) Intractable nausea: Status: Acute (3) Diverticulitis large intestine: Status: Acute Plan 74F PMH hypertension paroxysmal AFib, GERD, polycythemia vera presented with abdominal pain and weight loss found to have diverticulitis with possible colovesicular fistula and positive UA Duodenal ulcers with persistent N\V Symptomatic noted on EGD give Zofran PRN Pantoprazole IV advance diet as tolerated F\U with GI as OP Acute diverticulitis with possible colovesicular fistula and UTI complicated by moderate protein calorie malnutrition and weight loss follow up closely with Gastroenterology to see if surgery needed in the future. If surgery will need to be in conjunction with general surgery and Urology, but unclear if even true fistula changed Zosyn to Augmentin (end May 23, 2024) cultures negative atrophic pancreas on imaging d/w gi, likely age related and not contributing to symptoms Acute hypokalemia, hypomagnesemia Replaced, monitor Hypertension Amlodipine, lisinopril, metoprolol Paroxysmal AFib Continue metoprolol, Xarelto Polycythemia vera Hydroxyurea DVT prophylaxis - Xarelto Full code reason for continued hospitalization: advancing diet as tolerated Quality Stroke Does the patient have a stroke diagnosis?: No VTE Prior VTE?: No VTE Risk Level:: Medical - moderate - high VTE Device Contraindication: N/A - Device Ordered VTE Drug Contraindication: Treatment Not Indicated
[2024-05-19] VITALS (9 sets, daily range): BP systolic 121–133; BP diastolic 64–89; PULSE 57–123; RESP 12–18; TEMP 36.2–36.6; O2SAT 97–100
[2024-05-19] MEDS: Pantoprazole Sodium 40 MG/10 ML VIAL IVPUSH ×2 (06:20→16:02)
[2024-05-19] MEDS: Amoxicillin/Potassium Clav 875 MG TABLET PO ×2 (06:20→18:30)
[2024-05-19] MEDS: 0.9 % Sodium Chloride Flush 3 ML SYRINGE IVFLUSH ×3 (09:26→20:23)
[2024-05-19] MEDS: amLODIPine Besylate 10 MG TABLET PO (09:27)
[2024-05-19] MEDS: lisinopriL 40 MG TABLET PO (09:28)
[2024-05-19] MEDS: Metoprolol Succinate ER 25 MG TAB.ER.24H PO (09:28)
[2024-05-19] MEDS: Rivaroxaban 20 MG TABLET PO (09:29)
[2024-05-19] MEDS: Sertraline HCL 50 MG TABLET PO (09:29)
--- NOTE | 2024-05-19 10:44 | HO.PM.IMPN ---
Subjective Subjective Date of Service: 05/19/24 Interval History: Seen and evaluated this morning still reporting nausea , Tolerating diet , advancing slowly feels weak and worried about going home pain better Review of Systems Review of Systems: Yes all other systems are reviewed and are negative Physical Exam Vital Signs: Vital Signs: Last Vital Signs Temp 97.8 F 05/19/24 07:26 Pulse 123 H 05/19/24 09:28 Resp 12 05/19/24 07:26 BP 130/89 05/19/24 09:28 Pulse Ox 98 05/19/24 07:26 O2 Del Method Room Air 05/19/24 07:26 BMI result Body Mass Index 27.1 Const: Other: Constitutional : Awake, interactive, not in distress Neck : Normal inspection, Supple Cardiovascular : RRR, no JVP, no lower extremity edema Respiratory : good bilateral air entry, no crackles, wheezes or rhonchi Gastrointestinal: soft, lax, Normal bowel sounds,mild LLQ tenderness Skin : Warm, Dry Neurological : Alert & oriented x3, No focal deficit Objective Data Active Medications Acetaminophen (Acetaminophen 325 Mg Tablet) 975 mg PO Q6H PRN PRN Reason: Pain, Mild 1-3,fever,headache Amlodipine Besylate (Amlodipine Besylate 10 Mg Tablet) 10 mg PO DAILY [facility]; Protocol Last Admin: 05/19/24 09:27 Dose: 10 mg Documented By: LINCOLN Amoxicillin/Clavulanate Potassium (Amoxicillin/Potassium Clav 875 Mg Tablet) 875 mg PO Q12H [facility] Last Admin: 05/19/24 06:20 Dose: 875 mg Documented By: CASTILLeobardo Calcium Carbonate (Calcium Carbonate 750 Mg Tab.Chew) 750 mg PO Q4H PRN PRN Reason: Heartburn Hydroxyurea (Hydroxyurea 500 Mg Capsule) 500 mg PO DAILY [facility] Last Admin: 05/19/24 09:30 Dose: Not Given Documented By: LINCOLN Non-Admin Reason: Patient Refused Lisinopril (Lisinopril 40 Mg Tablet) 40 mg PO DAILY [facility]; Protocol Last Admin: 05/19/24 09:28 Dose: 40 mg Documented By: LINCOLN Magnesium Hydroxide (Milk Of Magnesia 30 Ml Oral.Susp) 30 ml PO DAILY PRN PRN Reason: Constipation Melatonin (Melatonin 3 Mg Tablet) 6 mg PO BEDTIME PRN PRN Reason: Insomnia Metoprolol Succinate (Metoprolol Succinate Er 25 Mg Tab.Er.24h) 25 mg PO DAILY [facility]; Protocol Last Admin: 05/19/24 09:28 Dose: 25 mg Documented By: LINCOLN Naloxone HCl (Naloxone Hcl 0.4 Mg/Ml Vial) 0.04 mg IVPUSH Q5M PRN PRN Reason: Excessive sedation or RR < 8 Ondansetron HCl (Ondansetron Hcl 4 Mg/2 Ml Vial) 4 mg IVPUSH Q8H PRN PRN Reason: Nausea and Vomiting Last Admin: 05/18/24 08:54 Dose: 4 mg Documented By: YVONNE Ondansetron HCl (Ondansetron Odt 4 Mg Tab.Rapdis) 4 mg TRANSLINGU Q8H PRN PRN Reason: Nausea and Vomiting Last Admin: 05/13/24 18:16 Dose: 4 mg Documented By: JAMMIE Pantoprazole Sodium (Pantoprazole Sodium 40 Mg/10 Ml Vial) 40 mg IVPUSH BID@0630,1630 [facility] Last Admin: 05/19/24 06:20 Dose: 40 mg Documented By: LILIANA Rivaroxaban (Rivaroxaban 20 Mg Tablet) 20 mg PO DAILY [facility] Last Admin: 05/19/24 09:29 Dose: 20 mg Documented By: LINCOLN Senna (Sennosides 8.6 Mg Tablet) 17.2 mg PO BEDTIME PRN PRN Reason: Constipation Last Admin: 05/11/24 08:10 Dose: 8.6 mg Documented By: IVANNA Comments: pt requested one tablet Sertraline HCl (Sertraline Hcl 50 Mg Tablet) 50 mg PO DAILY [facility] Last Admin: 05/19/24 09:29 Dose: 50 mg Documented By: LINCOLN Sodium Chloride (0.9 % Sodium Chloride Flush 3 Ml Syringe) 3 ml IVFLUSH QSHIFT [facility] Last Admin: 05/19/24 09:26 Dose: 3 ml Documented By: LINCOLN Labs 05/18/24 06:27 05/18/24 06:27 Assessment and Plan (1) Duodenal ulcer: Status: Acute (2) Recurrent UTI: Status: Acute Plan 74F PMH hypertension paroxysmal AFib, GERD, polycythemia vera presented with abdominal pain and weight loss found to have diverticulitis with possible colovesicular fistula and positive UA Duodenal ulcers with persistent N\V noted on EGD Zofran PRN Pantoprazole IV advance diet F\U with GI as OP Physical deconditioning PT Eval Acute diverticulitis with possible colovesicular fistula and UTI complicated by moderate protein calorie malnutrition and weight loss follow up closely with Gastroenterology to see if surgery needed in the future. If surgery will need to be in conjunction with general surgery and Urology, but unclear if even true fistula changed Zosyn to Augmentin (end May 23, 2024) cultures negative atrophic pancreas on imaging d/w gi, likely age related and not contributing to symptoms Acute hypokalemia, hypomagnesemia Replaced, monitor Hypertension Amlodipine, lisinopril, metoprolol Paroxysmal AFib Continue metoprolol, Xarelto Polycythemia vera Hydroxyurea DVT prophylaxis - Xarelto Full code reason for continued hospitalization: advancing diet as tolerated Quality Stroke Does the patient have a stroke diagnosis?: No VTE Prior VTE?: No VTE Risk Level:: Medical - moderate - high VTE Device Contraindication: N/A - Device Ordered VTE Drug Contraindication: Treatment Not Indicated
--- NOTE | 2024-05-19 13:30 | MHC.CM.PN ---
Patient discharged today to home. [facility] will provide home services. All dc info has been sent to the agency. Patient has arranged for his Mother to provide transportation home. PCP May Reed.
--- NOTE | 2024-05-19 14:14 | MHC.CM.PN ---
Per MD patient is ready to dc. A pt eval was ordered. The recommendation is Acute Rehab. [facility] is 1st choice. The referral has been sent. They are full this weekend. MD will review with liason and let us know if they can offer a bed om Tuesday. DP acute rehab via BLS pending a bed offer. CM will follow for placement.
[2024-05-20] VITALS (7 sets, daily range): BP systolic 112–132; BP diastolic 60–74; PULSE 59–97; RESP 12–18; TEMP 36.2–36.9; O2SAT 93–99
[2024-05-20] MEDS: Pantoprazole Sodium 40 MG/10 ML VIAL IVPUSH (06:26)
[2024-05-20] MEDS: Amoxicillin/Potassium Clav 875 MG TABLET PO ×2 (06:26→18:20)
[2024-05-20] MEDS: Metoprolol Succinate ER 25 MG TAB.ER.24H PO (08:17)
[2024-05-20] MEDS: Sertraline HCL 50 MG TABLET PO (08:19)
[2024-05-20] MEDS: Rivaroxaban 20 MG TABLET PO (08:19)
[2024-05-20] MEDS: amLODIPine Besylate 10 MG TABLET PO (08:19)
[2024-05-20] MEDS: lisinopriL 40 MG TABLET PO (08:19)
[2024-05-20] MEDS: 0.9 % Sodium Chloride Flush 3 ML SYRINGE IVFLUSH ×3 (08:22→20:04)
--- NOTE | 2024-05-20 11:29 | HO.PM.IMPN ---
Subjective Subjective Date of Service: 05/20/24 Interval History: Seen and evaluated this morning reporting nausea Tolerating diet feels weak pain better Review of Systems Review of Systems: Yes all other systems are reviewed and are negative Physical Exam Vital Signs: Vital Signs: Last Vital Signs Temp 97.8 F 05/20/24 07:29 Pulse 63 05/20/24 08:17 Resp 12 05/20/24 07:29 BP 112/60 05/20/24 07:29 Pulse Ox 99 05/20/24 07:29 O2 Del Method Room Air 05/20/24 07:29 BMI result Body Mass Index 27.1 Const: Other: Constitutional : Awake, interactive, not in distress Neck : Normal inspection, Supple Cardiovascular : RRR, no JVP, no lower extremity edema Respiratory : good bilateral air entry, no crackles, wheezes or rhonchi Gastrointestinal: soft, lax, Normal bowel sounds,mild LLQ tenderness Skin : Warm, Dry Neurological : Alert & oriented x3, No focal deficit Objective Data Active Medications Acetaminophen (Acetaminophen 325 Mg Tablet) 975 mg PO Q6H PRN PRN Reason: Pain, Mild 1-3,fever,headache Amlodipine Besylate (Amlodipine Besylate 10 Mg Tablet) 10 mg PO DAILY [facility]; Protocol Last Admin: 05/20/24 08:19 Dose: 10 mg Documented By: LINCOLN Amoxicillin/Clavulanate Potassium (Amoxicillin/Potassium Clav 875 Mg Tablet) 875 mg PO Q12H [facility] Last Admin: 05/20/24 06:26 Dose: 875 mg Documented By: CASTILLeobardo Calcium Carbonate (Calcium Carbonate 750 Mg Tab.Chew) 750 mg PO Q4H PRN PRN Reason: Heartburn Hydroxyurea (Hydroxyurea 500 Mg Capsule) 500 mg PO DAILY [facility] Last Admin: 05/20/24 08:21 Dose: Not Given Documented By: LINCOLN Non-Admin Reason: Patient Refused Lisinopril (Lisinopril 40 Mg Tablet) 40 mg PO DAILY [facility]; Protocol Last Admin: 05/20/24 08:19 Dose: 40 mg Documented By: LINCOLN Magnesium Hydroxide (Milk Of Magnesia 30 Ml Oral.Susp) 30 ml PO DAILY PRN PRN Reason: Constipation Melatonin (Melatonin 3 Mg Tablet) 6 mg PO BEDTIME PRN PRN Reason: Insomnia Metoprolol Succinate (Metoprolol Succinate Er 25 Mg Tab.Er.24h) 25 mg PO DAILY [facility]; Protocol Last Admin: 05/20/24 08:17 Dose: 25 mg Documented By: LINCOLN Naloxone HCl (Naloxone Hcl 0.4 Mg/Ml Vial) 0.04 mg IVPUSH Q5M PRN PRN Reason: Excessive sedation or RR < 8 Ondansetron HCl (Ondansetron Hcl 4 Mg/2 Ml Vial) 4 mg IVPUSH Q8H PRN PRN Reason: Nausea and Vomiting Last Admin: 05/18/24 08:54 Dose: 4 mg Documented By: YVONNE Ondansetron HCl (Ondansetron Odt 4 Mg Tab.Rapdis) 4 mg TRANSLINGU Q8H PRN PRN Reason: Nausea and Vomiting Last Admin: 05/13/24 18:16 Dose: 4 mg Documented By: JAMMIE Pantoprazole Sodium (Pantoprazole Sodium 40 Mg/10 Ml Vial) 40 mg IVPUSH BID@0630,1630 [facility] Last Admin: 05/20/24 06:26 Dose: 40 mg Documented By: LILIANA Rivaroxaban (Rivaroxaban 20 Mg Tablet) 20 mg PO DAILY [facility] Last Admin: 05/20/24 08:19 Dose: 20 mg Documented By: LINCOLN Senna (Sennosides 8.6 Mg Tablet) 17.2 mg PO BEDTIME PRN PRN Reason: Constipation Last Admin: 05/11/24 08:10 Dose: 8.6 mg Documented By: IVANNA Comments: pt requested one tablet Sertraline HCl (Sertraline Hcl 50 Mg Tablet) 50 mg PO DAILY [facility] Last Admin: 05/20/24 08:19 Dose: 50 mg Documented By: LINCOLN Sodium Chloride (0.9 % Sodium Chloride Flush 3 Ml Syringe) 3 ml IVFLUSH QSHIFT [facility] Last Admin: 05/20/24 08:22 Dose: 3 ml Documented By: LINCOLN Labs 05/18/24 06:27 05/18/24 06:27 Assessment and Plan (1) Duodenal ulcer: Status: Acute (2) Physical deconditioning: Status: Acute Plan 74F PMH hypertension paroxysmal AFib, GERD, polycythemia vera presented with abdominal pain and weight loss found to have diverticulitis with possible colovesicular fistula and positive UA Duodenal ulcers with persistent N\V noted on EGD Zofran PRN Pantoprazole IV , switch to PO Omeprazole advance diet F\U with GI as OP Physical deconditioning PT Eval rec rehab Acute diverticulitis with possible colovesicular fistula and UTI complicated by moderate protein calorie malnutrition and weight loss follow up closely with Gastroenterology to see if surgery needed in the future. If surgery will need to be in conjunction with general surgery and Urology, but unclear if even true fistula changed Zosyn to Augmentin (end May 23, 2024) cultures negative atrophic pancreas on imaging d/w gi, likely age related and not contributing to symptoms Acute hypokalemia, hypomagnesemia Replaced, monitor Hypertension Amlodipine, lisinopril, metoprolol Paroxysmal AFib Continue metoprolol, Xarelto Polycythemia vera Hydroxyurea DVT prophylaxis - Xarelto Full code reason for continued hospitalization: advancing diet as tolerated , placement Quality Stroke Does the patient have a stroke diagnosis?: No VTE Prior VTE?: No VTE Risk Level:: Medical - moderate - high VTE Device Contraindication: N/A - Device Ordered VTE Drug Contraindication: Treatment Not Indicated
[2024-05-20] MEDS: Omeprazole 40 MG CAPSULE.DR PO (16:34)
[2024-05-20 20:02] LABS: Calprotectin, Fecal 1870 mcg/g
[2024-05-20] MEDS: Temazepam 15 MG CAPSULE PO (22:15)
[2024-05-21 03:31] VITALS: BP 101/62; PULSE 71; RESP 18; TEMP 36.4; O2SAT 93
[2024-05-21] MEDS: Amoxicillin/Potassium Clav 875 MG TABLET PO (06:14)
[2024-05-21] MEDS: Omeprazole 40 MG CAPSULE.DR PO ×2 (06:14→16:39)
[2024-05-21 07:32] VITALS: BP 120/72; PULSE 69; RESP 18; TEMP 36.7; O2SAT 95
[2024-05-21] MEDS: Metoprolol Succinate ER 25 MG TAB.ER.24H PO (08:37)
[2024-05-21] MEDS: lisinopriL 40 MG TABLET PO (08:37)
[2024-05-21] MEDS: Sertraline HCL 50 MG TABLET PO (08:37)
[2024-05-21] MEDS: Rivaroxaban 20 MG TABLET PO (08:37)
[2024-05-21] MEDS: amLODIPine Besylate 10 MG TABLET PO (08:37)
[2024-05-21] MEDS: 0.9 % Sodium Chloride Flush 3 ML SYRINGE IVFLUSH (08:38)
[2024-05-21 11:56] VITALS: BP 121/70; PULSE 61; RESP 16; TEMP 36.2; O2SAT 98
--- NOTE | 2024-05-21 13:32 | MHC.CLN ---
F/U DIET RX: REGULAR-APPROPRIATE RECEIVING MAGIC CUP BID (580 KCALS, 18 G PROTEIN). PO MOST MEALS 25-50%. MONITOR PO INTAKE AND ENCOURAGE SUPPLEMENT.
--- NOTE | 2024-05-21 14:08 | MHC.CM.PN ---
pt stefaning kasandra to [facility] at 4:30
--- NOTE | 2024-05-21 14:28 | P.DS_ITS ---
DS: Providers Provider Date of Service: 05/21/24 Date of admission: 05/09/24 23:39 Date of discharge: 05/21/24 Primary care physician: Eloy Germain MD Consults: 05/09/24 23:43 Consult to Gastroenterology Routine Consulting Provider: Simone Craig Reason for consultation: pt of yours. ?colovesicular fistula, weight loss Has provider been notified: No 05/10/24 09:05 Consult to General Surgery Routine Consulting Provider: [facility] Reason for consultation: complicated diverticulitis/fistula Has provider been notified: No 05/10/24 14:54 Consult to Urology Routine Consulting Provider: [facility] Reason for consultation: ?colovesical fistula, recurrent UTI, no air in bladder on imaging Has provider been notified: No 05/11/24 13:53 Consult to General Surgery Routine Consulting Provider: Ryan Anders Reason for consultation: second opinion per patient request DS: Diagnosis Discharge Diagnosis (1) Duodenal ulcer: Status: Acute (2) Physical deconditioning: Status: Acute (3) Intractable nausea: Status: Acute (4) [place]-vesical fistula: Status: Acute (5) Diverticulitis large intestine: Status: Acute (6) Hypomagnesemia: Status: Acute DS: Summary Hospital Course Hospital Course: from initial hpi: 74-year-old female with a past medical history significant for HTN, AFib on Xarelto, GERD, polycythemia vera on hydroxyurea, who presented to the ED due to decreased appetite for the past few months a significant weight loss of reported 70 lb over the last few months, nausea, vomiting and weakness. The patient reports that last month she was having abdominal pain and had an abdominopelvic CT by her PCP and was diagnosed with diverticulitis but was not treated with any antibiotics. Her abdominal pain resolved however she continues to have nausea and vomiting as well as weight loss. She denies any upper respiratory symptoms including fever, chills, headache, nasal congestion, rhinorrhea, sore throat or cough. She has had frequent UTIs recently requiring multiple antibiotic treatments, just completed Bactrim. She is scheduled for an endoscopy and colonoscopy with Dr. Craig soon, she reports a previous colonoscopy with possible ulcerative colitis. hospital course: Patient was admitted for acute recurrent diverticulitis with colovesicular fistula and urinary tract infection complicated by moderate protein calorie malnutrition and weight loss. Was treated with IV Zosyn. Cultures were negative. Was seen by Gastroenterology and General surgery and Urology. Conversation was had regarding trial of conservative care with antibiotics versus surgical approach. Patient would prefer conservative care especially given very small size of potential fistula without fecaluria. She was able to tolerate diet and participate with physical therapy who recommended STR placement. Patient will be discharged on 2 weeks of Augmentin and follow up with Gastroenterology as EGD showed diodenal ulcers and started on IV PPI then switched to PO Omeprazole which she will continue on discharge and follow with GI to repeat study as scheduled. For acute hypokalemia and hypomagnesemia received replacement. For paroxysmal atrial fibrillation was continued on metoprolol, Xarelto. For hypertension continued on amlodipine, lisinopril, metoprolol. For polycythemia vera continued on hydroxyurea. Time Attestation Discharge Coordination Time (in mins): 42 Quality: Safe Use of Opioids Does Pt have an Active Cancer Diagnosis on the Problem List?: No Quality: Stroke Does the patient have a stroke diagnosis?: No Physical Exam Vital Signs: Vital Signs: Last Vital Signs Temp 97.2 F 05/21/24 11:56 Pulse 61 05/21/24 11:56 Resp 16 05/21/24 11:56 BP 121/70 05/21/24 11:56 Pulse Ox 98 05/21/24 11:56 O2 Del Method Room Air 05/21/24 11:56 BMI result Body Mass Index 27.1 Const: Other: Constitutional : Awake, interactive, not in distress Neck : Normal inspection, Supple Cardiovascular : RRR, no JVP, no lower extremity edema Respiratory : good bilateral air entry, no crackles, wheezes or rhonchi Gastrointestinal: soft, lax, Normal bowel sounds,mild LLQ tenderness Skin : Warm, Dry Neurological : Alert & oriented x3, No focal deficit DS: Data Data Completed and Pending Pending studies at discharge: Pending at discharge 05/16/24 14:35 Surgical [PTH] Routine Labs on day of discharge: Laboratory Results - last 24 hr 05/14/24 17:29 Stool Calprotectin [address] scan - abdomen: Radiologist's impression: ITS Impressions Chest X-Ray 05/09/24 14:21 IMPRESSION: 1. Findings suggesting COPD. 2. No active superimposed disease. Electronically signed by: Aron Raymond MD 05/09/2024 02:55 PM EDT RP Discharge Plan Discharge Anticipated Discharge Date/Time: 05/12/24 09:02 Patient Disposition: Xfer Inpatient Rehab Fac Discharge Diagnosis: Possible colovesicular fistula Referrals: [facility] [Other] - 1 Week Simone Craig MD [Physician] - 1 Week Rancho Emerson MD [Physician] - 1 Week Eloy Germain MD [Primary Care Provider] - 1 Week Discharge Medications: New amoxicillin-pot clavulanate 875-125 mg tablet 1 tab PO BID Qty: 28 0RF ondansetron 4 mg tablet,disintegrating 4 mg PO Q8H PRN (Reason: nausea and vomiting) Qty: 20 0RF omeprazole 40 mg Capsule,Delayed Release(Dr/Ec) 40 mg PO DAILY Qty: 90 0RF Continued metoprolol succinate 25 mg tablet extended release 24 hr 25 mg PO DAILY Qty: 90 3RF Xarelto 20 mg tablet 20 mg PO DAILY Qty: 30 11RF acetaminophen 325 mg tablet 975 mg PO Q8H PRN (Reason: Pain) temazepam 15 mg capsule 15 mg PO BEDTIME PRN (Reason: Sleep) amlodipine 10 mg tablet 10 mg PO DAILY lisinopril 40 mg tablet 40 mg PO DAILY prochlorperazine maleate [Compazine] 5 mg tablet 5 mg PO BID PRN (Reason: Nausea And Vomiting) sertraline [Zoloft] 50 mg tablet 50 mg PO DAILY hydroxyurea 500 mg capsule 500 mg PO DAILY Discontinued sulfamethoxazole-trimethoprim [Bactrim DS] 800-160 mg tablet 1 tab PO BID 5 Days Qty: 10 0RF omeprazole 20 mg capsule,delayed release(DR/EC) 20 mg PO DAILY PRN (Reason: Heartburn) Discharge Orders: Discharge Order (Routine); Ordered 05/21/24 Ordered By: Amor Dc Diet: Advance to usual diet Activity on Discharge: As tolerated Stand Alone Forms: Patient Portal Discharge page Print Language: Yakut Care Plan Goals: Manage possible colovesicular fistula Health Concerns: Colovesicular fistula Plan of Treatment: 2 weeks of p.o. Augmentin, Omeprazole 40 mg daily follow up with Gastroenterology to verify resolution monitor symptoms and weight loss, if no improvement may require surgery with General surgery and Urology Assessment: see above Patient Instructions: Amoxicillin/Clavulanate Potassium (By mouth), Gastrointestinal Fistula (DC)
--- NOTE | 2024-05-21 14:30 | P.CDIM_ITS ---
PROVIDER RESPONSE TEXT: To clarify, the appropriate diagnosis supported by the clinical indicators: Acute QUERY TEXT: PHYSICIAN'S DOCUMENTATION REQUEST Date of Query: 05/18/2024 01:07 PM EDT Patient Name: Dunia Elliott Admit Date: 05/10/2024 Dear Amor Dc MD, A review of the medical record indicates additional documentation may be needed. Please review below and update the documentation accordingly. Clinical Indicators: per EGD duodenal ulcers IV Pantoprazole Clarify which of the following accurately represents the acuity of the Duodenal ulcers. Possible options might include: Acute Acute on chronic Compensated Chronic stable condition Remission Other (explain) Clinically unable to determine (explain) Thank you, Adri Salomon RN Use of terms such as suspected, likely, concern for, or probable (associated with a specific diagnosi s that is being evaluated, monitored, or treated as if it exists) are acceptable and can be coded in the inpatient se tting, when documented at the time of discharge. Please use your independent medical judgment in providing your response. THIS QUERY IS PART OF THE PERMANENT MEDICAL RECORD
[2024-05-21 16:28] VITALS: BP 139/78; PULSE 72; RESP 18; TEMP 36.5; O2SAT 98
== END 2024-05-21 18:00 | DRG 392 ==
LOC: HO.ED 18:21 → HO.EDOVER 05-10 00:04 → HO.S3 05-10 11:07
PROVIDERS: Emergency Medicine; Hospitalist; Internal Medicine; Internal Medicine Gastroenterology; Physician Assistant; Admitting Provider Physician Assistant; Emergency Provider Internal Medicine; PCP Internal Medicine; Visit Provider Student in an Organized Health Care Education/Training Program
PROC: 0DJ08ZZ Inspection of Upper Intestinal Tract, Via Natural or Artificial Opening Endoscopic (ICD-10-PCS; CPT 43235; principal; 2024-05-16 14:00)
DX: K57.32 Diverticulitis of large intestine without perforation or abscess without bleeding (principal); E44.0 Moderate protein-calorie malnutrition; N32.1 Vesicointestinal fistula; N39.0 Urinary tract infection, site not specified; K26.3 Acute duodenal ulcer without hemorrhage or perforation; I48.0 Paroxysmal atrial fibrillation; K31.7 Polyp of stomach and duodenum; K44.9 Diaphragmatic hernia without obstruction or gangrene; Z87.440 Personal history of urinary (tract) infections; E87.6 Hypokalemia; E83.42 Hypomagnesemia; D45 Polycythemia vera; I10 Essential (primary) hypertension; K21.9 Gastro-esophageal reflux disease without esophagitis; Z68.27 Body mass index [BMI] 27.0-27.9, adult; Z20.822 Contact with and (suspected) exposure to COVID-19; Z79.01 Long term (current) use of anticoagulants; Z79.899 Other long term (current) drug therapy
CPT/HCPCS: 0241U; 36415; 71046; 74177; 80048; 80053; 80076; 81001; 82784; 83540; 83605; 83690; 83735; 83993; 84443; 84484; 85025; 85027; 86038; 87040; 87086; 87493; 87507; 88305; 88313; 88342; 89055; 93005; 97162; 99285; J0737; J2003; J2405; J2470; J2543; J2704; J3010; J3475; J3480; J7120; Q9967

== ENCOUNTER → 2024-05-09 14:21 | Outpatient (BNV) | payer MEDICARE, SELFPAY | PROVIDERS: PCP Internal Medicine; Visit Provider Radiology Diagnostic Radiology | DX: K80.20 Calculus of gallbladder without cholecystitis without obstruction (principal); R07.9 Chest pain, unspecified | CPT/HCPCS: 71046 ==

== ENCOUNTER → 2024-05-09 14:21 | Outpatient (BNV) | payer MEDICARE, SELFPAY | PROVIDERS: Emergency Provider Emergency Medicine; PCP Internal Medicine; Visit Provider Internal Medicine Cardiovascular Disease | DX: R00.0 Tachycardia, unspecified (principal) | CPT/HCPCS: 93010 ==

== ENCOUNTER → 2024-05-09 23:39 | Outpatient (BNV) | payer MEDICARE, SELFPAY | PROVIDERS: Admitting Provider Physician Assistant; Emergency Provider Internal Medicine; PCP Internal Medicine; Visit Provider Internal Medicine | DX: I48.0 Paroxysmal atrial fibrillation (principal) | CPT/HCPCS: 99233 ==

== ENCOUNTER → 2024-05-09 23:39 | Outpatient (BNV) | payer MEDICARE, SELFPAY | PROVIDERS: Admitting Provider Physician Assistant; Emergency Provider Internal Medicine; PCP Internal Medicine; Visit Provider Surgery | DX: N39.0 Urinary tract infection, site not specified (principal) | CPT/HCPCS: 99232 ==

== ENCOUNTER → 2024-05-09 23:39 | Outpatient (BNV) | payer MEDICARE, SELFPAY | PROVIDERS: Admitting Provider Physician Assistant; Emergency Provider Internal Medicine; PCP Internal Medicine; Visit Provider Urology | DX: N30.90 Cystitis, unspecified without hematuria (principal); N39.0 Urinary tract infection, site not specified | CPT/HCPCS: 99222 ==

== ENCOUNTER 2024-06-22 13:10 | Outpatient (AMB) | payer MEDICARE, SELFPAY ==
[2024-06-22 10:11] VITALS: PULSE 84; RESP 16; TEMP 36.1; O2SAT 99; BMI 22.2
--- NOTE | 2024-06-22 10:11 | A.OFFPC_ITS ---
Vital Signs 06/22/24 10:11 Height 5 ft 7 in Weight 142 lb BMI 22.2 Respiration 16 Pulse 84 Pulse Source Pulse Oximeter Temp 97.0 F Pulse Oximetry (%) 99 Intake Visit Reasons: Routine Grain Broker Required: No Accompanied by: Self / Same As Patient Allergies diphenhydramine Adverse Reaction (Verified 06/22/24 13:25) Anxiety Tobacco use date assessed: 06/22/24 Fall risk assessment: 2 + Falls in past year Last assessed Fall Risk: 06/22/24 Dental Screening Dental Screen Date: 06/22/24 Did you have a dental visit in the last 12 months?: No Did you have a dental problem in the last 6 months where you did not have access to dental care?: No Was dental information given to patient?: Patient has dentist HPI HPI Comments History of Present Illness Details The patient is a 74 year old female with a past medical history of p. afib, htn, hyperlipidemia, OA s/p RTK, polycythemia vera, GERD anxiety, insomnia presenting for follow up Hospitalized 05/09/2024-05/21/2024 at [facility] [place]. She presenting with abdominal pain, N/V/weakness and weight loss. Hospitalized for acute recurrent diverticulitis with colovesicular fistula and urinary tract infection complicated by moderate protein calorie malnutrition and weight loss. Was treated with IV Zosyn. Cultures were negative. Was seen by Gastroenterology and General surgery and Urology. Conversation was had regarding trial of conservative care with antibiotics versus surgical approach. Patient would prefer conservative care especially given very small size of potential fistula without fecaluria. She was able to tolerate diet and participate with physical therapy who recommended STR placement. Patient will be discharged on 2 weeks of Augmentin and follow up with Gastroenterology as EGD showed diodenal ulcers and started on IV PPI then switched to PO Omeprazole which she will continue on discharge and follow with GI to repeat study as scheduled. For acute hypokalemia and hypomagnesemia received replacement. She notes interval improvement in abdominal pain. In the past few days is experiencing some dysuria. Denies fever or chills [facility] is coming once weekly (RN) for nursing care and per patient they have sent out urine testing today. She does not have appointments booked with her urologist. I urged her to do so. Referral is made to surgery CV: follows with cardiology. Blood pressure is soft today 84/54. She underwent a myocardial perfusion imaging prior to needing a knee surgery in July 2023 which was within normal limits. Denies chest pain, exertional dyspnea Heme/Onc: thrombocytosis, polycythemia vera, was on hydroxyurea therapy being held followed by . Follows with Dr Stevens at [facility]. ROS see HPI PHYSICAL EXAM: GENERAL: Alert and oriented x 3. NAD EYES: EOMI. Anicteric. HENT: Moist mucous membranes. No scleral icterus. No cervical lymphadenopathy. LUNGS: Clear to auscultation bilaterally. CARDIOVASCULAR: Regular rate and rhythm. ABDOMEN: Soft, non-tender +bs EXTREMITIES: No edema. Non-tender. SKIN: No rashes or lesions. Warm. NEUROLOGIC: No focal neurological deficits. CN II-XII grossly intact PSYCHIATRIC: Cooperative. Appropriate mood and affect [facility] Medical History Polycythemia vera Postoperative nausea Osteopenia Hx of Lyme disease GERD (gastroesophageal reflux disease) Paroxysmal atrial fibrillation HTN (hypertension) Persistent atrial fibrillation Surgical History History of esophagogastroduodenoscopy (EGD) Hx of section Hx of hysterectomy Hx of colonoscopy (~08/13/21) Hx of appendectomy Family History Father Cancer Stroke Mother Diabetes Social History Household Members: None Housing: Condominium Are you a primary wound care nurse to a significant other at home: Yes ( with Alzheimer's and Parkinson's) Do you presently have visiting nurse or other home services: No Patient Tobacco Use Status: Never used Tobacco e-Cigarette/Vaping Use: Never Used Advance Directives Date on File: 03/11/21 service: No Current occupational status: retired Cognitive needs: Yes (walker) Hearing needs: No Vision needs: Yes (Rx glasses) Questionnaire PHQ-9 Over the last 2 weeks, how often have you been bothered by any of the following problems? 1. Little interest or pleasure in doing things: not at all 2. Feeling down, depressed, or hopeless: not at all 3. Trouble falling or staying asleep, or sleeping too much: not at all 4. Feeling tired or having little energy: not at all 5. Poor appetite or overeating: not at all 6. Feeling bad about yourself - or that you are a failure or have let yourself or your family down: not at all 7. Trouble concentrating on things, such as reading the newspaper or watching television: not at all 8. Moving or speaking so slowly that other people could have noticed. Or the opposite - being so fidgety or restless that you have been moving around a lot more than usual: not at all 9. Thoughts that you would be better off or of hurting yourself in some way: not at all Total score: 0 Depression Screening Interpretation: Negative Depression Screening Done: Yes 41758 - PHQ-9 Billing: Yes Source: Developed by Drs. Hari Knight, Evelyn Ramirez, Best Blackwell and colleagues, with an educational carol from [employer]. Thrive Questionnaire Date Thrive assessed: 06/22/24 I am a: Patient Within the past 12 months, did the food you bought not last and you didn't have the money to get more?: Never true Do you have trouble paying for medicines?: No Do you have trouble getting transportation to medical appointments?: No Do you have trouble paying your heating and electricity bill?: No Do you have trouble taking care of your child, family member or friend?: No Do you have trouble with day-to-day activities such as bathing, preparing meals, shopping, managing finances, etc.?: No Are you currently unemployed and looking for a job?: No Are you interested in more education?: No THRIVE Score: 0 AUDIT C Alcohol Use Questionnaire (AUDIT-C) 1. How often do you have a drink containing alcohol?: Never 3. How often do you have six or more drinks on one occasion?: Never Total Score: 0 KALANI-7 AMB Questionnaire KALANI-7 Date KALANI - 7 assessed: 06/22/24 Feeling nervous, anxious, or on edge: 0 = Not at all Not being able to stop or control worryin = Not at all Worrying too much about different things: 0 = Not at all Trouble relaxin = Not at all Being so restless that it is hard to sit still: 0 = Not at all Becoming easily annoyed or irritable: 0 = Not at all Feeling afraid as if something awful might happen: 0 = Not at all Total KALANI-7 score (0-4 normal; 5-9 mild; 10-14 moderate; 15-21 severe): 0 Source: Developed by Drs. Hari Knight, Evelyn Ramirez, Best Blackwell and colleagues, with an educational carol from [employer]. Physical exam (Primary Care) Tobacco/Smoking Status: Tobacco use Status Tobacco use date assessed 06/22/24 06/22/24 10:13 Patient Tobacco Use Status Never used Tobacco 06/22/24 10:13 e-Cigarette/Vaping Use Never Used 06/22/24 10:13 PHQ-9: PHQ-9 Score PHQ-9: Total score 0 06/22/24 10:13 Depression Screening Interpretation: Negative Thrive Assessment: Date of Thrive Assessment Date Thrive assessed 06/22/24 06/22/24 10:13 Coding Level of Care Code New Pt Level 4 (72768) Complex EM visit Add On G2211 Diagnoses Hospital discharge follow-up Z09 Diverticulitis of large intestine, unspecified bleeding status, unspecified complication status K57.32 Diverticulitis bleeding: unspecified bleeding status Diverticulitis complication: unspecified complication status [place]-vesical fistula N32.1 Recurrent UTI N39.0 Polycythemia vera D45 Paroxysmal atrial fibrillation I48.0 Additional Codes PHQ-9 - 64204 - PHQ-9 Billing: Yes ([id number]) Assessment & Plan Assessment & Plan (1) Hospital discharge follow-up: Code(s): Z09 - Encounter for follow-up examination after completed treatment for conditions other than malignant neoplasm Category: Medical (2) Diverticulitis large intestine: Code(s): K57.32 - Diverticulitis of large intestine without perforation or abscess without bleeding Category: Medical Qualifiers: Diverticulitis bleeding: unspecified bleeding status Diverticulitis complication: unspecified complication status Qualified Code(s): K57.32 - Diverticulitis of large intestine without perforation or abscess without bleeding (3) [place]-vesical fistula: Code(s): 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 Placed on cipro tx for 7 days with continuation at daily low dose Needs to follow up with urology, GI, surgery. She is aware. 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
--- OUTSIDE RECORDS SUMMARY | 2024-06-22 13:14 | XMS_ITS ---
[facility] Address [address] [place] [address] Care Team Providers Care Tribal Council Member Name Role Phone Ross Moran MD Primary Care Provider Emerson Blandon Unavailable [phone] Allergies Allergen (clinical drug ingredient) Drug/Non Drug [...] 09/12/2023 Encounters Encounter Location Date Provider Diagnosis [facility] [address] [place] [address] 09/12/2023 Emerson Mcbride Plan Of Treatment No Information Progress Notes * EARLTasneem RICHARDricia LDOB:[birth year] (74 yo F)Acc No.[id number]:09/12/2023 Progress Notes Patient:?Dunia ELLIOTT Provider:?Emerson Mcbride DPM :1950???Age:73 Y???Sex:Female D ate:09/12/2023 Address:[address] [place], [place] [id number] Pcp:Ross Moran MD Subjective: * Chief Complaints: [...] DPM Date:? 024 Generated for Yodit mullen/Sim/Perry on:?06/22/2024 01:14 PM EDT
--- OUTSIDE RECORDS SUMMARY | 2024-06-22 13:14 | XMS_ITS ---
Author Organization [facility] Address [address] [place] [address] Care Team Providers Care Supervising Appraiser Name Role Phone Ross Moran MD Primary Care Provider Emerson Blandon [phone] REASON FOR VISIT cx ON 09/11 Encounters Encounter Location Date Provider Diagnosis [facility] [address] [place] [address] 09/08/2023 Emerson Mcbride Plan Of Treatment No Information Progress Notes * Dunia ELLIOTT LDOB:[birth year] (73 yo F)Acc No.[id number]:09/08/2023 Patient:?Tasneem Elliottgrupo Simental :1950???Age:73 Y???Sex:Female Address:[address] [place] [address], [place] [address] * true * Date:? Generated for Printi sebas/Sim/eTransmitting on:?06/22/2024 01:14 PM EDT
--- OUTSIDE RECORDS SUMMARY | 2024-06-22 13:15 | XMS_ITS | Clinical Summary ---
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 BLEEDING Active 06-08 00:00: 00 VESICOINTEST INAL FISTULA Active 06-08 00:00: 00 Anorectal fistula, unspecified Active 06-08 00:00: 00 MODERATE PROTEIN-ELIDA CARRINGTON MALNUTRITION Active 06-08 00:00: 00 ACUTE CYSTITIS WITHOUT HEMATURIA Active 06-08 00:00: 00 ESSENTIAL (PRIMARY) HYPERTENSION Active 05-21 00:00: 00 OTH DISORDERS OF ELECTROLYTE AND FLUID BALANCE, NEC Active 05-21 00:00: 00 OTHER PERSISTENT ATRIAL FIBRILLATION Active 02-14 00:00: 00 OTH DISRD OF BONE DENSITY AND STRUCTURE, UNSPECIFIED SITE Active 02-14 00:00: 00 GASTRO-ESOPH AGEAL REFLUX DISEASE WITHOUT ESOPHAGITIS Active 02-14 00:00: 00 DEPRESSION, UNSPECIFIED Active 02-14 00:00: 00 POLYCYTHEMIA VERA Active 02-14 00:00: 00 ABNORMAL WEIGHT LOSS Active 02-14 00:00: 00 BODY MASS INDEX [BMI] 25.0-25.9, ADULT Active 06-08 00:00: 00 JAIL (CURRENT) USE OF ANTIBIOTICS Active 06-08 00:00: 00 JAIL (CURRENT) USE OF ANTICOAGULAN TS Active 06-08 00:00: 00 JAIL (CURRENT) USE OF ANTIMETABOLI TE AGENT Active 06-08 00:00: 00 Allergies, Adverse Reactions, Alerts Allergy Name Allergy Type Status Severity Reaction(s) Onset Date Inactive Date Treating Clinician Comments BENADRYL Propensity to adverse reactions Active 2024-05 20:24:0 1 Medications Ordered Medication Name Filled Medication Name Start Date Stop Date Current Medication? Ordering Clinician Indication Dosage Frequency Signature (SIG) Comments Components Xarelto 20 mg tablet 2023-02 0-11 00:00: 00 06-04 23:59 :00 No [id number] BLOOD THINNER 1 tablet DAILY 1 tablet DAILY (route: oral) Med Classific ation: Hematolog ical Agents prochlorper azine maleate 5 mg tablet 2023-02 00:00: 00 06-04 23:59 :00 No [id number] NAUSEA Per instruc tions EVERY 6 HOURS NEEDED Per instructio ns EVERY 6 HOURS NEEDED (route: oral) Med Classific ation: Gastroint estinal Therapy Agents sertraline 50 mg tablet 2023-02 00:00: 00 06-04 23:59 :00 No [id number] DEPRESSION 1 tablet DAILY 1 tablet DAILY (route: oral) Med Classific ation: Central Nervous System Agents amlodipine 10 mg tablet 2023-02 00:00: 00 06-04 23:59 :00 No [id number] BP 1 tablet DAILY 1 tablet DAILY (route: oral) Med Classific ation: Cardiovas cular Therapy Agents Colace 100 mg capsule 2023-02 00:00: 00 06-04 23:59 :00 No [id number] BOWEL 1 capsule DAILY 1 capsule DAILY (route: oral) Med Classific ation: Gastroint estinal Therapy Agents Dilaudid 2 mg tablet 2023-02 00:00: 00 06-04 23:59 :00 No [id number] PAIN 1 tablet EVERY 4 HOURS 1 tablet EVERY 4 HOURS (route: oral) Med Classific ation: Analgesic , Anti-infl ammatory or Antipyret ic lisinopril 20 mg tablet 2023-02 0 00:00: 00 12-13 14:28 :30.0 53 No [id number] BP 1 tablet DAILY 1 tablet DAILY (route: oral) Med Classific ation: Cardiovas cular Therapy Agents metoprolol succinate ER 25 mg tablet,exte nded release 24 hr 2023-02 00:00: 00 06-04 23:59 :00 No [id number] BP 1 tablet DAILY 1 tablet DAILY (route: oral) Med Classific ation: Cardiovas cular Therapy Agents tramadol 50 mg tablet 2023-02 00:00: 00 06-04 23:59 :00 No [id number] PAIN 1 tablet EVERY 6 HOURS 1 tablet EVERY 6 HOURS (route: oral) Med Classific ation: Analgesic , Anti-infl ammatory or Antipyret ic Tylenol Extra Strength 500 mg tablet 2023-02 00:00: 00 06-04 23:59 :00 No [id number] PAIN 1-2 tablet EVERY 6 HOURS 1-2 tablet EVERY 6 HOURS (route: oral) Med Classific ation: Analgesic , Anti-infl ammatory or Antipyret ic lisinopril 40 mg tablet 2023-02 00:00: 00 06-04 23:59 :00 No [id number] HYPERTENSIO N 1 tablet DAILY 1 tablet DAILY (route: oral) Med Classific ation: Cardiovas cular Therapy Agents omeprazole 20 mg tablet,phu yed release 2023-02 00:00: 00 06-04 23:59 :00 No [id number] GERD 1 tablet DAILY 1 tablet DAILY (route: oral) Med Classific ation: Gastroint estinal Therapy Agents temazepam 15 mg capsule 2023-02 0 00:00: 00 06-04 23:59 :00 No [id number] SLEEP 1 capsule DAILY 1 capsule DAILY (route: oral) Med Classific ation: Central Nervous System Agents acetaminoph en 325 mg tablet 4-07 00:00: 00 Yes [id number] PAIN 3 tablet EVERY 8 HOURS 3 tablet EVERY 8 HOURS (route: oral) Med Classific ation: Analgesic , Anti-infl ammatory or Antipyret ic amoxicillin 875 mg-potassiu m clavulanate 125 mg tablet 05-22 00:00: 00 06-15 23:59 :00 No [id number] POSSIBLE ANORECTAL FISSURE 1 tablet 2 TIMES DAILY 1 tablet 2 TIMES DAILY (route: oral) Med Classific ation: Anti-Infe ctive Agents hydroxyurea 500 mg capsule 05-22 00:00: 00 Yes [id number] BLOOD CANCER 1 capsule DAILY 1 capsule DAILY (route: oral) Med Classific ation: Antineopl astics lisinopril 40 mg tablet 05-21 00:00: 00 Yes [id number] HTN 1 tablet DAILY 1 tablet DAILY (route: oral) Med Classific ation: Cardiovas cular Therapy Agents metoprolol succinate ER 25 mg tablet,exte nded release 24 hr 05-21 00:00: 00 Yes [id number] HTN 1 tablet DAILY 1 tablet DAILY (route: oral) Med Classific ation: Cardiovas cular Therapy Agents Norvasc 10 mg tablet 05-21 00:00: 00 Yes [id number] HTN 1 tablet DAILY 1 tablet DAILY (route: oral) Med Classific ation: Cardiovas cular Therapy Agents omeprazole 40 mg capsule,del ayed release 05-21 00:00: 00 Yes [id number] GERD 1 capsule DAILY 1 capsule DAILY (route: oral) Med Classific ation: Gastroint estinal Therapy Agents sertraline 50 mg tablet 05-21 00:00: 00 Yes [id number] DEPRESSION 1 tablet DAILY 1 tablet DAILY (route: oral) Med Classific ation: Central Nervous System Agents temazepam 15 mg capsule 05-21 00:00: 00 Yes [id number] INSOMNIA 1 capsule BEDTIME 1 capsule BEDTIME (route: oral) Med Classific ation: Central Nervous System Agents Xarelto 20 mg tablet 05-21 00:00: 00 Yes [id number] AFIB 1 tablet DAILY 1 tablet DAILY (route: oral) Med Classific ation: Hematolog ical Agents Vital Signs Vital Name Observation Time Observation Value Commen ts Temperature 2024-06-21 12:56:00.000 97.4 [degF] Temperature 2024-06-13 12:48:00.000 98.3 [degF] Temperature 2024-06-08 12:35:00.000 97.2 [degF] BMI (%) 2024-06-08 12:35:00.000 25 kg/m2 Height 2024-06-08 12:35:00.000 66 [in_us] Pulse 2024-06-21 12:56:00.000 90 /min Pulse 2024-06-13 12:48:00.000 98 /min Pulse 2024-06-08 12:35:00.000 96 /min O2 Saturation (%) 2024-06-08 12:35:00.000 97 % Respirations 2024-06-21 12:56:00.000 18 /min Respirations 2024-06-13 12:48:00.000 18 /min Respirations 2024-06-08 12:35:00.000 18 /min Weight (lbs) 2024-06-08 12:35:00.000 161 [lb_av] Systolic Blood Pressure 2024-06-21 12:56:00.000 124 mm [Hg] Systolic Blood Pressure 2024-06-13 12:48:00.000 132 mm [Hg] Systolic Blood Pressure 2024-06-08 12:35:00.000 118 mm [Hg] Diastolic Blood Pressure 2024-06-21 12:56:00.000 74 mm [Hg] Diastolic Blood Pressure 2024-06-13 12:48:00.000 76 mm [Hg] Diastolic Blood Pressure 2024-06-08 12:35:00.000 64 mm [Hg] Plan of Treatment Planned Activity Planned Date Details Comments Future Scheduled Test RN TO OBSE RVE, ASSESS, EVALUATE, AND DEVELOP AN INDIVIDUALIZED PLAN OF CARE. AGENCY MAY ACCEPT ORDERS FROM CONSULTING PHYSICIANS. RN TO OBSERVE AND ASSESS, YARN SPINNER/BUILDING REPAIR MAINTENANCE SUPERVISOR TO OBSERVE FOR RISK FOR FALLS AND INSTRUCT IN FALL PREVENTION, HOME SAFETY, MEDICATION MANAGEMENT, INFECTION PREVENTION, AND NUTRITION MANAGEMENT. RN/YARN SPINNER/BUILDING REPAIR MAINTENANCE SUPERVISOR NURSE MAY PERFORM O2 SATURATION LEVEL ON ADMISSION AND FOR RN TO ASSESS/YARN SPINNER TO OBSERVE PATIENT, WITH NOTIFICATION TO THE PHYSICIAN IF SATURATION IS 90% IN THE ABSENCE OF MORE SPECIFIC PARAMETERS FROM THE PHYSICIAN. AGENCY MAY PERFORM A RESUMPTION OF CARE VISIT FOLLOWING ANY HOSPITAL ADMISSION. RN/YARN SPINNER/BUILDING REPAIR MAINTENANCE SUPERVISOR TO MONITOR CO-MORBID CONDITIONS LISTED ON THE PLAN OF CARE AND ANY NEW CONDITIONS THAT PRESENT THEMSELVES DURING THIS EPISODE TO IDENTIFY CHANGES AND INTERVENE TO MINIMIZE COMPLICATIONS. [code = RN TO OBSERVE, ASSESS, EVALUATE, AND DEVELOP AN INDIVIDUALIZED PLAN OF CARE. AGENCY MAY ACCEPT ORDERS FROM CONSULTING PHYSICIANS. RN TO OBSERVE AND ASSESS, YARN SPINNER/BUILDING REPAIR MAINTENANCE SUPERVISOR TO OBSERVE FOR RISK FOR FALLS AND INSTRUCT IN FALL PREVENTION, HOME SAFETY, MEDICATION MANAGEMENT, INFECTION PREVENTION, AND NUTRITION MANAGEMENT. RN/YARN SPINNER/BUILDING REPAIR MAINTENANCE SUPERVISOR NURSE MAY PERFORM O2 SATURATION LEVEL ON ADMISSION AND FOR RN TO ASSESS/YARN SPINNER TO OBSERVE PATIENT, WITH NOTIFICATION TO THE PHYSICIAN IF SATURATION IS 90% IN THE ABSENCE OF MORE SPECIFIC PARAMETERS FROM THE PHYSICIAN. AGENCY MAY PERFORM A RESUMPTION OF CARE VISIT FOLLOWING ANY HOSPITAL ADMISSION. RN/YARN SPINNER/BUILDING REPAIR MAINTENANCE SUPERVISOR TO MONITOR CO-MORBID CONDITIONS LISTED ON THE PLAN OF CARE AND ANY NEW CONDITIONS THAT PRESENT THEMSELVES DURING THIS EPISODE TO IDENTIFY CHANGES AND INTERVENE TO MINIMIZE COMPLICATIONS.] Future Scheduled Test RISK FOR H OSPITALIZATION; RN TO ASSESS/TEACH, BUILDING REPAIR MAINTENANCE SUPERVISOR/YARN SPINNER TO OBSERVE/TEACH PATIENT/CAREGIVER ON RISK FOR HOSPITALIZATION/EMERGENCY ROOM VISITS, TEACH SIGNS AND SYMPTOMS THAT PUT PATIENT AT RISK, WHEN TO NOTIFY NURSE/PHYSICIAN OF COMPLICATIONS/DECLINE, AND WHEN TO CALL 911. [code = RISK FOR HOSPITALIZATION; RN TO ASSESS/TEACH, BUILDING REPAIR MAINTENANCE SUPERVISOR/YARN SPINNER TO OBSERVE/TEACH PATIENT/CAREGIVER ON RISK FOR HOSPITALIZATION/EMERGENCY ROOM VISITS, TEACH SIGNS AND SYMPTOMS THAT PUT PATIENT AT RISK, WHEN TO NOTIFY NURSE/PHYSICIAN OF COMPLICATIONS/DECLINE, AND WHEN TO CALL 911.] Future Scheduled Test MEDICATION MANAGEMENT; RN/YARN SPINNER/BUILDING REPAIR MAINTENANCE SUPERVISOR TO REVIEW MEDICATIONS FOR INTERACTIONS, EFFECTIVENESS OF DRUG THERAPY, AND SIGNS/SYMPTOMS OF ADVERSE REACTIONS. MAY INSTRUCT AND REINFORCE MEDICATION TEACHING RELATED TO THE USE OF MEDICATIONS, DOSAGE, FREQUENCY, PURPOSE, SIDE EFFECTS, AND TO REPORT COMPLICATIONS. [code = MEDICATION MANAGEMENT; RN/YARN SPINNER/BUILDING REPAIR MAINTENANCE SUPERVISOR TO REVIEW MEDICATIONS FOR INTERACTIONS, EFFECTIVENESS OF DRUG THERAPY, AND SIGNS/SYMPTOMS OF ADVERSE REACTIONS. MAY INSTRUCT AND REINFORCE MEDICATION TEACHING RELATED TO THE USE OF MEDICATIONS, DOSAGE, FREQUENCY, PURPOSE, SIDE EFFECTS, AND TO REPORT COMPLICATIONS.] Future Scheduled Test CARDIOVASC ULAR SYSTEM; RN TO ASSESS/TEACH, YARN SPINNER/BUILDING REPAIR MAINTENANCE SUPERVISOR TO OBSERVE/TEACH RELATED TO ALTERED CARDIOVASCULAR STATUS TO MINIMIZE COMPLICATIONS AND REDUCE HOSPITALIZATION. [code = CARDIOVASCULAR SYSTEM; RN TO ASSESS/TEACH, YARN SPINNER/BUILDING REPAIR MAINTENANCE SUPERVISOR TO OBSERVE/TEACH RELATED TO ALTERED CARDIOVASCULAR STATUS TO MINIMIZE COMPLICATIONS AND REDUCE HOSPITALIZATION.] Future Scheduled Test PAIN MANAG EMENT; RN TO ASSESS AND TEACH, BUILDING REPAIR MAINTENANCE SUPERVISOR/YARN SPINNER TO OBSERVE AND TEACH AND PROVIDE EDUCATION ON PAIN MANAGEMENT TECHNIQUES. [code = PAIN MANAGEMENT; RN TO ASSESS AND TEACH, BUILDING REPAIR MAINTENANCE SUPERVISOR/YARN SPINNER TO OBSERVE AND TEACH AND PROVIDE EDUCATION ON PAIN MANAGEMENT TECHNIQUES.] Future Scheduled Test GENITOURIN LINETTE MANAGEMENT; RN TO ASSESS AND TEACH, YARN SPINNER/BUILDING REPAIR MAINTENANCE SUPERVISOR TO OBSERVE AND TEACH RELATED TO ALTERED GENITOURINARY STATUS TO MINIMIZE COMPLICATIONS AND REDUCE HOSPITALIZATION. [code = GENITOURINARY MANAGEMENT; RN TO ASSESS AND TEACH, YARN SPINNER/BUILDING REPAIR MAINTENANCE SUPERVISOR TO OBSERVE AND TEACH RELATED TO ALTERED GENITOURINARY STATUS TO MINIMIZE COMPLICATIONS AND REDUCE HOSPITALIZATION.] Future Scheduled Test URINARY MO LECULAR TESTING PROTOCOL UP TO 2 PRN RN/YARN SPINNER/BUILDING REPAIR MAINTENANCE SUPERVISOR VISITS MAY BE PERFORMED FOR S/S OF UTI. RN TO ASSESS, YARN SPINNER/BUILDING REPAIR MAINTENANCE SUPERVISOR TO OBSERVE INITIATION OF UTI PROTOCOL. RN/BUILDING REPAIR MAINTENANCE SUPERVISOR/YARN SPINNER TO INSTRUCT PATIENT AND/OR CAREGIVER ON S/S OF UTI TO REPORT TO RN/BUILDING REPAIR MAINTENANCE SUPERVISOR/YARN SPINNER IF NEW OR WORSENING SYMPTOMS. DRINK PLENTY OF WATER THROUGHOUT THE DAY TO MAINTAIN HYDRATION (UNLESS CONTRAINDICATED.) URINATE WHEN THE URGE IS FELT, DO NOT WAIT. WASH GENITALS DAILY. WIPE FROM FRONT TO BACK AFTER HAVING A BOWEL MOVEMENT. RN/BUILDING REPAIR MAINTENANCE SUPERVISOR/YARN SPINNER TO OBTAIN MOLECULAR URINE TESTING BY OPTION 1 OR OPTION 2 (OPTION 1) RN/BUILDING REPAIR MAINTENANCE SUPERVISOR/YARN SPINNER TO OBTAIN U/A WITH REFLEX TO UTI PANEL (MOLECULAR) VIA CLEAN CATCH URINE AND IF UNABLE TO OBTAIN MAY PERFORM AN IN AND OUT CATH. IF PATIENT HAS INDWELLING CATHETER MAY OBTAIN FROM SAMPLING PORT. NOTIFY PROVIDER OF RESULTS AND OBTAIN FURTHER ORDERS. [code = URINARY MOLECULAR TESTING PROTOCOL UP TO 2 PRN RN/YARN SPINNER/BUILDING REPAIR MAINTENANCE SUPERVISOR VISITS MAY BE PERFORMED FOR S/S OF UTI. RN TO ASSESS, YARN SPINNER/BUILDING REPAIR MAINTENANCE SUPERVISOR TO OBSERVE INITIATION OF UTI PROTOCOL. RN/BUILDING REPAIR MAINTENANCE SUPERVISOR/YARN SPINNER TO INSTRUCT PATIENT AND/OR CAREGIVER ON S/S OF UTI TO REPORT TO RN/BUILDING REPAIR MAINTENANCE SUPERVISOR/YARN SPINNER IF NEW OR WORSENING SYMPTOMS. DRINK PLENTY OF WATER THROUGHOUT THE DAY TO MAINTAIN HYDRATION (UNLESS CONTRAINDICATED.) URINATE WHEN THE URGE IS FELT, DO NOT WAIT. WASH GENITALS DAILY. WIPE FROM FRONT TO BACK AFTER HAVING A BOWEL MOVEMENT. RN/BUILDING REPAIR MAINTENANCE SUPERVISOR/YARN SPINNER TO OBTAIN MOLECULAR URINE TESTING BY OPTION 1 OR OPTION 2 (OPTION 1) RN/BUILDING REPAIR MAINTENANCE SUPERVISOR/YARN SPINNER TO OBTAIN U/A WITH REFLEX TO UTI PANEL (MOLECULAR) VIA CLEAN CATCH URINE AND IF UNABLE TO OBTAIN MAY PERFORM AN IN AND OUT CATH. IF PATIENT HAS INDWELLING CATHETER MAY OBTAIN FROM SAMPLING PORT. NOTIFY PROVIDER OF RESULTS AND OBTAIN FURTHER ORDERS.] Future Scheduled Test GASTROINTE STINAL MANAGEMENT; RN TO ASSESS AND TEACH, BUILDING REPAIR MAINTENANCE SUPERVISOR/YARN SPINNER TO OBSERVE AND TEACH RELATED TO ALTERED GASTROINTESTINAL STATUS TO MINIMIZE COMPLICATIONS AND REDUCE HOSPITALIZATION. [code = GASTROINTESTINAL MANAGEMENT; RN TO ASSESS AND TEACH, BUILDING REPAIR MAINTENANCE SUPERVISOR/YARN SPINNER TO OBSERVE AND TEACH RELATED TO ALTERED GASTROINTESTINAL STATUS TO MINIMIZE COMPLICATIONS AND REDUCE HOSPITALIZATION.] Future Scheduled Test RN TO ASSE SS AND TEACH, YARN SPINNER/BUILDING REPAIR MAINTENANCE SUPERVISOR TO OBSERVE AND INSTRUCT PATIENT/CAREGIVER ON DIVERTICULAR DISEASE MANAGEMENT. [code = RN TO ASSESS AND TEACH, YARN SPINNER/BUILDING REPAIR MAINTENANCE SUPERVISOR TO OBSERVE AND INSTRUCT PATIENT/CAREGIVER ON DIVERTICULAR DISEASE MANAGEMENT.] Future Scheduled Test FALL REDUC TION MANAGEMENT; RN TO ASSESS AND OBSERVE, YARN SPINNER/BUILDING REPAIR MAINTENANCE SUPERVISOR TO OBSERVE FALL RISK FACTORS AND EDUCATE PATIENT/CAREGIVER ON STRATEGIES TO MINIMIZE THE RISK OF FALLING. [code = FALL REDUCTION MANAGEMENT; RN TO ASSESS AND OBSERVE, YARN SPINNER/BUILDING REPAIR MAINTENANCE SUPERVISOR TO OBSERVE FALL RISK FACTORS AND EDUCATE PATIENT/CAREGIVER ON STRATEGIES TO MINIMIZE THE RISK OF FALLING.] Goal Patient Goal - F IGURE OUT THIS RECTAL FISSURE Goal Provider Goal - A PLAN OF CARE WILL BE ESTABLISHED THAT MEETS THE PATIENTS NEEDS. PATIENT WILL DEMONSTRATE OXYGEN SATURATION WITHIN NORMAL LIMITS OR PATIENTS OPTIMAL LEVEL ESTABLISHED BY THE PHYSICIAN THROUGHOUT CARE. CHANGES TO CO-MORBID CONDITIONS AND ANY NEW CONDITIONS WILL BE IDENTIFIED AND REPORTED TO THE PHYSICIAN. Goal Provider Goal - PATIENT/CAREGIVER WILL VERBALIZE UNDERSTANDING OF SIGNS AND SYMPTOMS THAT PUT THE PATIENT AT RISK FOR HOSPITALIZATION /EMERGENCY ROOM VISITS, WHEN TO NOTIFY NURSE/PHYSICIAN OF COMPLICATIONS/DECLINE AND WHEN TO CALL 911. Goal Provider Goal - PATIENT / CAREGIVER WILL PROMPTLY REPORT SIGNS AND SYMPTOMS OF BLEEDING OR ADVERSE REACTIONS TO THE PHYSICIAN. PATIENT/CAREGIVER WILL VERBALIZE UNDERSTANDING OF ANTITHROMBOTIC THERAPY MANAGEMENT BY END OF EPISODE. Goal Provider Goal - PATIENT / CAREGIVER WILL VERBALIZE/DEMONSTRATE UNDERSTANDING OF MEASURES TO MANAGE ALTERED CARDIOVASCULAR STATUS BY END OF EPISODE. Goal Provider Goal - PATIENT / CAREGIVER WILL VERBALIZE / DEMONSTRATE UNDERSTANDING OF PAIN CONTROL MEASURES BY 08/06/24. Goal Provider Goal - PATIENT / CAREGIVER WILL VERBALIZE/DEMONSTRATE UNDERSTANDING OF MEASURES TO MANAGE ALTERED GENITOURINARY STATUS BY END OF EPISODE. Goal Provider Goal - PATIENT WILL DEMONSTRATE IMPROVEMENT IN S/S OF UTI TO AVOID HOSPITALIZATION. Goal Provider Goal - PATIENT / CAREGIVER WILL VERBALIZE/DEMONSTRATE UNDERSTANDING OF MEASURES TO MANAGE ALTERED GASTROINTESTINAL STATUS BY END OF EPISODE. Goal Provider Goal - PATIENT/CAREGIVER WILL VERBALIZE/ DEMONSTRATE STRATEGIES TO MANAGE DIVERTICULAR DISEASE. Goal Provider Goal - PATIENT/CAREGIVER WILL VERBALIZE/DEMONSTRATE UNDERSTANDING OF FALL RISK FACTORS AND IMPLEMENT STRATEGIES TO MINIMIZE FALL RISK. PATIENT/CAREGIVER WILL VERBALIZE/DEMONSTRATE AN ABILITY TO ADHERE TO FALL REDUCTION SELF-MANAGEMENT AND LIFE-STYLE CHANGES BY 08/07/24. Encounters Start Date/Time End Date/Time Encounter Type Admission Type Attending [facility] Department Encounter ID Discharge Date Discharge Status Discharge Condition Discharge Reason Percent Goals Met 2024-06-08 00:00:00 2024-08-06 00:00:00 Outpatient GARY [facility] [id number] 25.00
--- OUTSIDE RECORDS SUMMARY | 2024-06-22 13:15 | XMS_ITS | Patient Health Record ---
Author Organization [facility] Address [address] [place] [address] Care Team Providers Care Physical Therapy Director Name Role Phone ELOY HERNANDEZ Primary Care Provider Simone Bennett Jr Unavailable Allergies No Known Allergies Results Component Value Reference Range Notes Pathology Reviewed date:05/24/2024 09:42:51 AM Interpretation: Performing Lab:[facility], [address] [place] [id number] Notes/Report: Name: Earnest Elliott Age/Sex: 74/F : 1950 Unit#: [id number] Attend Dr: Amor Dc MD Re05/09/24 Status : ADM IN Location: [facility] 345-1 Disch: SPEC : [id number] RECD : 05/17/24 STATUS: SANJIV XIAO NUM: [id number] KERMIT: 05/16/24-1435 [facility] DR: Simone Craig MD ENTERED: 05/17/24-09 01 SP TYPE: Surgical OTHR DR: Amor Dc MD, Kartik K MD ORDERED: HE Stain/9, Gross Micro L4/3, IHC, Special st. 2/3, H. pylori, AB/PAS/3 Diagnosis A. Duodenum, biopsy: Chronic active/erosive duodenitis. B. Stomach, antrum, biopsy: Reactive gastropathy with background mild chronic inactive inflammation; no Hel icobacter organisms seen. C. EG junction, biopsy: - Cardiofundic-type mucosa with moderate chronic active inflammation and multilayered epithelium; no fully developed intestinal metaplasia seen. - Squamous epitheliu m within normal limits. Clinical History Pre-Op Dx: Colovesic ular fistula, weight loss, weakness Post-Op Dx: Duodenal ulcer Microscopic Description A-C. Microscopic sec tions examined. No metaplastic changes are seen, supported by AB/PAS stains (A, B and C); no Helicobacter organisms are seen, supported by H. pylori immunostain (B). Material Received A. Duodenal bx's B. Gastric antrum bx 's, r/o H. pylori C. EG junction bx's Gross Description Received in three parts. Part A: Received in formalin labeled duodenal bx's? are 2 alexander irregular tissue fragments each measuring 0.2 c m, submitted in toto in a cassette labeled A. Part B: Received in formalin labeled ?gastric antrum bx's, rule out H. pylori? are 2 alexander irregular and rectan gular tissue fragments measuring 0.2 and 0.5 cm, submitted in toto in a cassette labeled B. Part C: Received in formalin labeled ?EG junction bx's? are 2 rivera-alexander irregular and rectangular tissue f ragments measuring 0.25 and 0.45 cm, submitted in toto in a cassette labeled C. CEDS CONTINUED ON NEXT PAGE Name: Earnest Elliott Age/Sex: 74/F : 1950 Unit#: [id number] Attend Dr: Amor Dc MD Re05/09/24 Status : ADM IN Location: [facility] 345-1 Disch: SPEC : [id number] RECD : 05/17/24 STATUS: SANJIV XIAO NUM: [id number] KERMIT: 05/16/24-[address] [facility] [address]: Simone Craig MD ENTERED: 05/17/24-09 01 SP TYPE: Surgical OTHR DR: Amor Dc MD, Kartik K MD ORDERED: HE Stain/9, Gross Micro L4/3, IHC, Special st. 2/3, H. pylori, AB/PAS/3 Gross Description (Continued) Special studies orde red and performed: Immunostain for H. pylori on B; AB/PAS stains on A, B and C Copies To: Amor Dc MD [address] [place] [address] Simone Craig MD [facility] [address] [place] [address] Eloy Hernandez MD [facility],[address] [place] [address] [email or web address] Signed (si gnature on file) Lawrence Marcial MD 05/21/24 1524 END OF REPORT Reason For Referral No Information Medications Medication SIG (Take, Route, Frequency, Duration) Notes Start Date End Date Status amLODIPine Besylate 5 MG TAKE 1 TABLET B Y MOUTH EVERY DAY Oral for 30 Active Lisinopril 40 MG TAKE 1 TABLET BY EVONNE TH EVERY DAY Oral for 30 Active Vitamin D Active Hydroxyurea 500 MG TAKE 1 CAPSULE DAILY Oral for 90 Days Active Xarelto 20 MG TAKE 1 TABLET BY EVONNE TH EVERY DAY Oral for 30 Active Metoprolol Succinate ER 25 MG Oral for 90 Active Omeprazole 20 MG 1 capsule Orally Onc e a day for 30 day(s) Active Immunizations Vaccine Route Administration Date Status Comme nts Influenza Unknown 10/15/2017 Administered Influenza Unknown 02/14/2021 Administered Influenza Unknown 12/06/2023 Administered Social History Alcohol Screen Question Answer Notes Did you have a drink containing alcohol in the p ast year? No Points 0 Interpretation Negative Problems Problem Type SNOMED Code ICD Code Onset Dates Problem Status W/U Status Risk Notes Problem 85635829 Rectal bleeding (K62.5) Active confirmed Problem 794809049 Gastroesophageal reflux disease without esophagitis (K21.9) Active confirmed Problem 121219465 Gastroesophageal reflux disease, unspecified whether esophagitis present (K21.9) Active confirmed Vital Signs Temperature 97.1 degrees Fahrenheit 04/23/2024 Blood pressure diastolic 01 mm Hg 04/23/2024 Height 67 in 04/23/2024 Blood pressure systolic 001 mm Hg 04/23/2024 Weight 172 lbs 04/23/2024 BMI 26.94 kg/m2 04/23/2024 Procedures Procedure Date Ordered Date Performed Result Body Sit e UPPER GI ENDOSCOPY 04/23/2024 N/A COLONOSCOPY 04/23/2024 N/A Encounters Encounter Location Date Provider Diagnosis [facility] [address] [place] [id number] 05/16/2024 Simone Craig Jr [facility] [address] [place] [phone] 04/23/2024 Simone Criag Jr Weight loss R63.4 ; Colitis K52.9 and Early satiety R68.81 [facility] [address] [place] [phone] 03/30/2024 Simone Craig Jr [facility] [address] [place] [phone] 04/09/2024 Simone Craig Jr [facility] [address] [place] [phone] 05/23/2024 Simone Craig Jr [facility] [address] [place] [phone] 05/23/2024 Simone Craig Jr [facility] [address] [place] [phone] 05/24/2024 Simone Craig Jr [facility] [address] [place] [phone] 06/08/2024 Simone Craig Jr Assessments Encounter Date Diagnosis (ICD Code) Assessment Notes Treatment Notes Treatment Clinical Notes Section Notes 04/23/2024 Weight loss (ICD-10 - R63.4) We discussed her symptoms today. Her weight loss is concerning. We discussed GI causes for weight loss. She should have further evaluation with upper GI endoscopy and colonoscopy. She will have further evaluation including TSH testing. Risks and benefits of the procedures have been discussed with the patient who understands and agrees to proceed. Today's visit was 40 minutes 04/23/2024 Colitis (ICD-10 - K52.9) We discussed her symptoms today. Her weight loss is concerning. We discussed GI causes for weight loss. She should have further evaluation with upper GI endoscopy and colonoscopy. She will have further evaluation including TSH testing. Risks and benefits of the procedures have been discussed with the patient who understands and agrees to proceed. Today's visit was 40 minutes 04/23/2024 Early satiety (ICD-10 - R68.81) Satiety - early material was printed We discussed her symptoms today. Her weight loss is concerning. We discussed GI causes for weight loss. She should have further evaluation with upper GI endoscopy and colonoscopy. She will have further evaluation including TSH testing. Risks and benefits of the procedures have been discussed with the patient who understands and agrees to proceed. Today's visit was 40 minutes Plan Of Treatment Pending Test Test Name Order Date UPPER GI ENDOSCOPY 04/23/2024 COLONOSCOPY 04/23/2024 Future Test Test Name Order Date COLONOSCOPY 06/28/2013 COLONOSCOPY 11/03/2018 COLONOSCOPY 07/30/2021 Next Appt Details Provider Name:Simone stephens , 08/30/2024 01:35:00 PM, [address] [place] [address], [address], [place], [address], Insurance Providers Payer Name Payer Address Payer Phone Subscriber Number Group Number Insured Name Patient Relationship to Insured Coverage Start Date Coverage End Date MEDICARE OF [place] [address] [place] [id number] ILDA ELLIOTT Self - patient is the insured MED[employer] ATTN CLAIMS [address] [place] [address] [id number] ILDA ELLIOTT Self - patient is the insured Medical (General) History Medical History History ICD Code hypertension GERD Denies NM,DM,CVA,Lung disease,renal dise ase uterine cancer Lyme disease osteopenia hx of Afib Colonoscopy 710/14, wing, fo gus area of resolving infectious colitis, ten-year followup polycythemia vera Surgical History Surgery Date(Month/Year) right knee replacement vaginalplasty vein ligation X 2 appendectomy section hysterectomy
--- OUTSIDE RECORDS SUMMARY | 2024-06-22 13:15 | XMS_ITS | Patient Health Record ---
Author [facility] Address [address] [place] [address] Care Team Providers Care Soaping Department Supervisor Name Role Phone Ross Moran MD Primary Care Provider Emerson Blandon Unavailable [phone] Allergies Allergen (clinical drug ingredient) Drug/Non Drug [...] Problem Acquired hammer toe of right foot ([id number] 105) Other hammer toe(s) (acquired), right foot (M20.41) Active confirmed Problem Other hammer toe(s) (acquired), left foot (M20.42) Active confirmed Encounters Encounter Location Date Provider Diagnosis [facility] [place] [address] [place] [address] 09/08/2023 Emerson Mcbride Plan Of Treatment Pending Test Test Name Order Date X ray : Foot, left 2V 11/06/2014 X ray : Foot, left 3V 12/27/2016 X ray : Foot, left 3V 07/05/2019 X ray : Foot, left 3V 08/09/2019 X ray : Foot, left 3V 09/19/2019 X ray : Foot, right 3V 12/27/2016 [id number] NAIL, 6 OR MORE 12/27/2016 71999-Hqufyier Plate 04/29/2011 [id number]-GGM 06/10/2011 33475-ZFC 07/01/2011 86132-HTO 08/02/2011 [id number]-BRFYTLW SKIN/TISSUE 08/02/2011 [id number]-DBFSEOP SKIN/TISSUE 07/01/2011 29181- Unna Boot 07/05/2019 Insurance Providers Payer Name Payer Address Payer Phone Subscriber Number Group Number Insured Name Patient Relationship to Insured Coverage Start Date Coverage End Date Medicare National [employer]t [employer] [address] [place] [address] [id number] Dunia Elliott Self - patient is the insured [employer] Blue Shield [address] [place] [address] [id number] Dunia Elliott Self - patient is [...]
--- OUTSIDE RECORDS SUMMARY | 2024-06-22 13:15 | XMS_ITS ---
[facility] Organization [facility] Address [address] [place] [address] Care Team Providers Care Glass Frame Fitter Name Role Phone Ross Moran MD Primary Care Provider Emerson Blandon Unavailable [phone] Allergies Allergen (clinical drug ingredient) Drug/Non Drug [...] 06/08/2023 Encounters Encounter Location Date Provider [facility] [address] [place] [address] 06/08/2023 Emerson Mcbride Plan Of Treatment No Information Progress Notes * Dunia ELLIOTT LDOB:[birth year] (74 yo F)Acc No.[id number]:06/08/2023 Progress Notes Patient:?Dunia ELLIOTT Provider:?Emerson Mcbride DPM :1950???Age:73 Y???Sex:Female D ate:06/08/2023 Address:[address] [place], [place] [id number] Pcp:Ross Moran MD Subjective: * Chief Complaints: [...]
--- OUTSIDE RECORDS SUMMARY | 2024-06-22 13:15 | XMS_ITS ---
Author Organization [facility] Address [address] [place] [address] Care Team Providers Care Cryogenics Engineer Name Role Phone CYNTHIA HERNANDEZ Primary Care Provider Manuel Craig Jr, Simone Bales REASON FOR VISIT pathology l/m 05/24 Encounters Encounter Location Date Provider Diagnosis [facility] [address] [place] [address] 05/24/2024 Simone Craig Jr Plan Of Treatment Next Appt Details Provider Name:Simone stephens Jr, 08/30/2024 01:35:00 PM, [address], [address], [place], [address], Progress Notes * ILDA WINTERS LDOB:[birth year] (74 yo F)Acc No.[id number]:05/24/2024 Patient:?ILDA WINTERS :1950???Age:74 Y???Sex:Female Address:[address] [place] [address] [address], [place] [address] * true * Date:? Generated for Printi ng/Fakamlag/eTransmitting on:?06/22/2024 01:15 PM EDT
--- OUTSIDE RECORDS SUMMARY | 2024-06-22 13:15 | XMS_ITS ---
Author Organization [facility] Address [address] [place] [address] Care Team Providers Care Assistant Associate Professor Name Role Phone CYNTHIA HERNANDEZ Primary Care Provider Simone Bennett Jr REASON FOR VISIT waiting on pt call back Encounters Encounter Location Date Provider Diagnosis [facility] [address] [place] [address] 06/08/2024 Simone Craig Jr Plan Of Treatment Next Appt Details Provider Name:Simone stephens Jr, 08/30/2024 01:35:00 PM, [address], [address], [place], [address], Progress Notes * ILDA WINTERS LDOB:[birth year] (74 yo F)Acc No.[id number]:06/08/2024 Patient:?ILDA WINTERS :1950???Age:74 Y???Sex:Female Address:[address] [place] [address] [address], [place] [address] * true * Date:? Generated for Printi ng/Fakamlag/eTransmitting on:?06/22/2024 01:15 PM EDT
--- OUTSIDE RECORDS SUMMARY | 2024-06-22 13:15 | XMS_ITS ---
Author Organization [facility] Address [address] [place] [address] Care Team Providers Care Collections Manager Name Role Phone CYNTHIA HERNANDEZ Primary Care Provider Simone Bennett Jr [phone] REASON FOR VISIT wt loss,early satiety,colitis Encounters Encounter Location Date Provider Diagnosis [facility] [address] [place] [id number] 05/25/2024 Simone Craig Jr Plan Of Treatment Next Appt Details Provider Name:Simone stephens Jr, 08/30/2024 01:35:00 PM, [address], [address], [place], [address], Progress Notes * ILDA WINTERS LDOB:[birth year] (74 yo F)Acc No.[id number]:05/25/2024 EGD and COL/MAC Patient:?ILDA WINTERS Provider:?Simone Craig MD :1950???Age:74 Y???Sex:Female D ate:05/25/2024 Address:[address] [place] [address] [address], [phone] Pcp:CYNTHIA HERNANDEZ Subjective: * Chief Complaints: * ???1. Wt loss,early satiety, colitis. * Medical History:? Objective: * Vitals:? Assessment: Plan: * Treatment: * * The named appointment provid er may or may not be the originator of this progress note, and it is not deemed complete until electronically signed by the appointment provider. Sign off status: Pending * Provider:?Simone Craig MD Date:?0 05/25/2024 Generated for Yodit mullen/Sim/Perry on:?06/22/2024 01:14 PM EDT
--- OUTSIDE RECORDS SUMMARY | 2024-06-22 13:15 | XMS_ITS | Clinical Summary ---
Author Organization Unknown Care Team Providers Care Brick Dropper Name Role Phone MARY BELTRE, CYNTHIA Unavailable Unavailab lynne VARGAS RN, GARY Unavailable Unavailable CLOONAN SPECIAL WARFARE OPERATOR, EDWARD Unavailable Unavailable Payers Payer Name Policy Type Policy Number Effective Date Expira tion Date MEDICARE.[facility].PDGM [id number] Problems Condition Name Condition Details Condition Category [...] [BMI] 25.0-25.9, ADULT Active 06-08 00:00: 00 NURSING HOME (CURRENT) USE OF ANTIBIOTICS Active 06-08 00:00: 00 NURSING HOME (CURRENT) USE OF ANTICOAGULAN TS Active 06-08 00:00: 00 NURSING HOME (CURRENT) USE OF ANTIMETABOLI TE AGENT Active [...] 0-11 00:00: 00 06-04 23:59 :00 No [id number] BLOOD THINNER 1 tablet DAILY 1 tablet DAILY (route: oral) Med Classific ation: Hematolog ical Agents prochlorper azine maleate 5 mg tablet 2023-02 00:00: 00 06-04 23:59 :00 No [id number] NAUSEA Per instruc tions EVERY 6 HOURS NEEDED Per instructio ns EVERY 6 HOURS NEEDED (route: oral) Med Classific ation: Gastroint estinal Therapy Agents sertraline 50 mg tablet 2023-02 00:00: 00 06-04 23:59 :00 No [id number] DEPRESSION 1 tablet DAILY 1 tablet DAILY (route: oral) Med Classific ation: Central Nervous System Agents amlodipine 10 mg tablet 2023-02 00:00: 00 06-04 23:59 :00 No [id number] BP 1 tablet DAILY 1 tablet DAILY (route: oral) Med Classific ation: Cardiovas cular Therapy Agents Colace 100 mg capsule 2023-02 00:00: 00 06-04 23:59 :00 No [id number] BOWEL 1 capsule DAILY 1 capsule DAILY (route: oral) Med Classific ation: Gastroint estinal Therapy Agents Dilaudid 2 mg tablet 2023-02 00:00: 00 06-04 23:59 :00 No [id number] PAIN 1 tablet EVERY 4 HOURS 1 tablet EVERY 4 HOURS (route: oral) Med Classific ation: Analgesic , Anti-infl ammatory or Antipyret ic lisinopril 20 mg tablet 2023-02 0 00:00: 00 12-13 14:28 :30.0 53 No [id number] BP 1 tablet DAILY 1 tablet DAILY (route: oral) Med Classific ation: Cardiovas cular Therapy Agents metoprolol succinate ER 25 mg tablet,exte nded release 24 hr 2023-02 00:00: 00 06-04 23:59 :00 No [id number] BP 1 tablet DAILY 1 tablet DAILY (route: oral) Med Classific ation: Cardiovas cular Therapy Agents tramadol 50 mg tablet 2023-02 00:00: 00 06-04 23:59 :00 No [id number] PAIN 1 tablet EVERY 6 HOURS 1 tablet EVERY 6 HOURS (route: oral) Med Classific ation: Analgesic , Anti-infl ammatory or Antipyret ic Tylenol Extra Strength 500 mg tablet 2023-02 00:00: 00 06-04 23:59 :00 No [id number] PAIN 1-2 tablet EVERY 6 HOURS 1-2 tablet EVERY 6 HOURS (route: oral) Med Classific ation: Analgesic , Anti-infl ammatory or Antipyret ic lisinopril 40 mg tablet 2023-02 00:00: 00 06-04 23:59 :00 No [id number] HYPERTENSIO N 1 tablet DAILY 1 tablet DAILY (route: oral) Med Classific ation: Cardiovas cular Therapy Agents omeprazole 20 mg tablet,phu yed release 2023-02 00:00: 00 06-04 23:59 :00 No [id number] GERD 1 tablet DAILY 1 tablet DAILY (route: oral) Med Classific ation: Gastroint estinal Therapy Agents temazepam 15 mg capsule 2023-02 0 00:00: 00 06-04 23:59 :00 No [id number] SLEEP 1 capsule DAILY 1 capsule DAILY (route: oral) Med Classific ation: Central Nervous System Agents acetaminoph en 325 mg tablet 4-07 00:00: 00 Yes [id number] PAIN 3 tablet EVERY 8 HOURS 3 tablet EVERY 8 HOURS (route: oral) Med Classific ation: Analgesic , Anti-infl ammatory or Antipyret ic amoxicillin 875 mg-potassiu m clavulanate 125 mg tablet 05-22 00:00: 00 06-15 23:59 :00 No [id number] POSSIBLE ANORECTAL FISSURE 1 tablet 2 TIMES DAILY 1 tablet 2 TIMES DAILY (route: oral) Med Classific ation: Anti-Infe ctive Agents hydroxyurea 500 mg capsule 05-22 00:00: 00 Yes [id number] BLOOD CANCER 1 capsule DAILY 1 capsule DAILY (route: oral) Med Classific ation: Antineopl astics lisinopril 40 mg tablet 05-21 00:00: 00 Yes [id number] HTN 1 tablet DAILY 1 tablet DAILY (route: oral) Med Classific ation: Cardiovas cular Therapy Agents metoprolol succinate ER 25 mg tablet,exte nded release 24 hr 05-21 00:00: 00 Yes [id number] HTN 1 tablet DAILY 1 tablet DAILY (route: oral) Med Classific ation: Cardiovas cular Therapy Agents Norvasc 10 mg tablet 05-21 00:00: 00 Yes [id number] HTN 1 tablet DAILY 1 tablet DAILY (route: oral) Med Classific ation: Cardiovas cular Therapy Agents omeprazole 40 mg capsule,del ayed release 05-21 00:00: 00 Yes [id number] GERD 1 capsule DAILY 1 capsule DAILY (route: oral) Med Classific ation: Gastroint estinal Therapy Agents sertraline 50 mg tablet 05-21 00:00: 00 Yes [id number] DEPRESSION 1 tablet DAILY 1 tablet DAILY (route: oral) Med Classific ation: Central Nervous System Agents temazepam 15 mg capsule 05-21 00:00: 00 Yes [id number] INSOMNIA 1 capsule BEDTIME 1 capsule BEDTIME (route: oral) Med Classific ation: Central Nervous System Agents Xarelto 20 mg tablet 05-21 00:00: 00 Yes [id number] AFIB 1 tablet DAILY 1 tablet DAILY [...] CONSULTING PHYSICIANS. RN TO OBSERVE AND ASSESS, SPECIAL WARFARE OPERATOR/CALCINER OPERATOR TO OBSERVE FOR RISK FOR FALLS AND INSTRUCT IN FALL PREVENTION, HOME SAFETY, MEDICATION MANAGEMENT, INFECTION PREVENTION, AND NUTRITION MANAGEMENT. RN/SPECIAL WARFARE OPERATOR/CALCINER OPERATOR NURSE MAY PERFORM O2 SATURATION LEVEL ON ADMISSION AND FOR RN TO ASSESS/SPECIAL WARFARE OPERATOR TO OBSERVE PATIENT, WITH NOTIFICATION TO THE PHYSICIAN IF SATURATION IS 90% IN THE ABSENCE OF MORE SPECIFIC PARAMETERS FROM THE PHYSICIAN. AGENCY MAY PERFORM A RESUMPTION OF CARE VISIT FOLLOWING ANY HOSPITAL ADMISSION. RN/SPECIAL WARFARE OPERATOR/CALCINER OPERATOR TO MONITOR CO-MORBID CONDITIONS LISTED ON THE PLAN OF CARE AND ANY NEW CONDITIONS THAT PRESENT THEMSELVES DURING THIS EPISODE TO IDENTIFY CHANGES AND INTERVENE TO MINIMIZE COMPLICATIONS. [code = RN TO OBSERVE, ASSESS, EVALUATE, AND DEVELOP AN INDIVIDUALIZED PLAN OF CARE. AGENCY MAY ACCEPT ORDERS FROM CONSULTING PHYSICIANS. RN TO OBSERVE AND ASSESS, SPECIAL WARFARE OPERATOR/CALCINER OPERATOR TO OBSERVE FOR RISK FOR FALLS AND INSTRUCT IN FALL PREVENTION, HOME SAFETY, MEDICATION MANAGEMENT, INFECTION PREVENTION, AND NUTRITION MANAGEMENT. RN/SPECIAL WARFARE OPERATOR/CALCINER OPERATOR NURSE MAY PERFORM O2 SATURATION LEVEL ON ADMISSION AND FOR RN TO ASSESS/SPECIAL WARFARE OPERATOR TO OBSERVE PATIENT, WITH NOTIFICATION TO THE PHYSICIAN IF SATURATION IS 90% IN THE ABSENCE OF MORE SPECIFIC PARAMETERS FROM THE PHYSICIAN. AGENCY MAY PERFORM A RESUMPTION OF CARE VISIT FOLLOWING ANY HOSPITAL ADMISSION. RN/SPECIAL WARFARE OPERATOR/CALCINER OPERATOR TO MONITOR CO-MORBID CONDITIONS LISTED ON THE PLAN OF CARE AND ANY NEW CONDITIONS THAT PRESENT THEMSELVES DURING THIS EPISODE TO IDENTIFY CHANGES AND INTERVENE TO MINIMIZE COMPLICATIONS.] Future Scheduled Test RISK FOR H OSPITALIZATION; RN TO ASSESS/TEACH, CALCINER OPERATOR/SPECIAL WARFARE OPERATOR TO OBSERVE/TEACH PATIENT/CAREGIVER ON RISK FOR HOSPITALIZATION/EMERGENCY ROOM VISITS, TEACH SIGNS AND SYMPTOMS THAT PUT PATIENT AT RISK, WHEN TO NOTIFY NURSE/PHYSICIAN OF COMPLICATIONS/DECLINE, AND WHEN TO CALL 911. [code = RISK FOR HOSPITALIZATION; RN TO ASSESS/TEACH, CALCINER OPERATOR/SPECIAL WARFARE OPERATOR TO OBSERVE/TEACH PATIENT/CAREGIVER ON RISK FOR HOSPITALIZATION/EMERGENCY ROOM VISITS, TEACH SIGNS AND SYMPTOMS THAT PUT PATIENT AT RISK, WHEN TO NOTIFY NURSE/PHYSICIAN OF COMPLICATIONS/DECLINE, AND WHEN TO CALL 911.] Future Scheduled Test MEDICATION MANAGEMENT; RN/SPECIAL WARFARE OPERATOR/CALCINER OPERATOR TO REVIEW MEDICATIONS FOR INTERACTIONS, EFFECTIVENESS OF DRUG THERAPY, AND SIGNS/SYMPTOMS OF ADVERSE REACTIONS. MAY INSTRUCT AND REINFORCE MEDICATION TEACHING RELATED TO THE USE OF MEDICATIONS, DOSAGE, FREQUENCY, PURPOSE, SIDE EFFECTS, AND TO REPORT COMPLICATIONS. [code = MEDICATION MANAGEMENT; RN/SPECIAL WARFARE OPERATOR/CALCINER OPERATOR TO REVIEW MEDICATIONS FOR INTERACTIONS, EFFECTIVENESS OF DRUG THERAPY, AND SIGNS/SYMPTOMS OF ADVERSE REACTIONS. MAY INSTRUCT AND REINFORCE MEDICATION TEACHING RELATED TO THE USE OF MEDICATIONS, DOSAGE, FREQUENCY, PURPOSE, SIDE EFFECTS, AND TO REPORT COMPLICATIONS.] Future Scheduled Test CARDIOVASC ULAR SYSTEM; RN TO ASSESS/TEACH, SPECIAL WARFARE OPERATOR/CALCINER OPERATOR TO OBSERVE/TEACH RELATED TO ALTERED CARDIOVASCULAR STATUS TO MINIMIZE COMPLICATIONS AND REDUCE HOSPITALIZATION. [code = CARDIOVASCULAR SYSTEM; RN TO ASSESS/TEACH, SPECIAL WARFARE OPERATOR/CALCINER OPERATOR TO OBSERVE/TEACH RELATED TO ALTERED CARDIOVASCULAR STATUS TO MINIMIZE COMPLICATIONS AND REDUCE HOSPITALIZATION.] Future Scheduled Test PAIN MANAG EMENT; RN TO ASSESS AND TEACH, CALCINER OPERATOR/SPECIAL WARFARE OPERATOR TO OBSERVE AND TEACH AND PROVIDE EDUCATION ON PAIN MANAGEMENT TECHNIQUES. [code = PAIN MANAGEMENT; RN TO ASSESS AND TEACH, CALCINER OPERATOR/SPECIAL WARFARE OPERATOR TO OBSERVE AND TEACH AND PROVIDE EDUCATION ON PAIN MANAGEMENT TECHNIQUES.] Future Scheduled Test GENITOURIN LINETTE MANAGEMENT; RN TO ASSESS AND TEACH, SPECIAL WARFARE OPERATOR/CALCINER OPERATOR TO OBSERVE AND TEACH RELATED TO ALTERED GENITOURINARY STATUS TO MINIMIZE COMPLICATIONS AND REDUCE HOSPITALIZATION. [code = GENITOURINARY MANAGEMENT; RN TO ASSESS AND TEACH, SPECIAL WARFARE OPERATOR/CALCINER OPERATOR TO OBSERVE AND TEACH RELATED TO ALTERED GENITOURINARY STATUS TO MINIMIZE COMPLICATIONS AND REDUCE HOSPITALIZATION.] Future Scheduled Test URINARY MO LECULAR TESTING PROTOCOL UP TO 2 PRN RN/SPECIAL WARFARE OPERATOR/CALCINER OPERATOR VISITS MAY BE PERFORMED FOR S/S OF UTI. RN TO ASSESS, SPECIAL WARFARE OPERATOR/CALCINER OPERATOR TO OBSERVE INITIATION OF UTI PROTOCOL. RN/CALCINER OPERATOR/SPECIAL WARFARE OPERATOR TO INSTRUCT PATIENT AND/OR CAREGIVER ON S/S OF UTI TO REPORT TO RN/CALCINER OPERATOR/SPECIAL WARFARE OPERATOR IF NEW OR WORSENING SYMPTOMS. DRINK PLENTY OF WATER THROUGHOUT THE DAY TO MAINTAIN HYDRATION (UNLESS CONTRAINDICATED.) URINATE WHEN THE URGE IS FELT, DO NOT WAIT. WASH GENITALS DAILY. WIPE FROM FRONT TO BACK AFTER HAVING A BOWEL MOVEMENT. RN/CALCINER OPERATOR/SPECIAL WARFARE OPERATOR TO OBTAIN MOLECULAR URINE TESTING BY OPTION 1 OR OPTION 2 (OPTION 1) RN/CALCINER OPERATOR/SPECIAL WARFARE OPERATOR TO OBTAIN U/A WITH REFLEX TO UTI PANEL (MOLECULAR) VIA CLEAN CATCH URINE AND IF UNABLE TO OBTAIN MAY PERFORM AN IN AND OUT CATH. IF PATIENT HAS INDWELLING CATHETER MAY OBTAIN FROM SAMPLING PORT. NOTIFY PROVIDER OF RESULTS AND OBTAIN FURTHER ORDERS. [code = URINARY MOLECULAR TESTING PROTOCOL UP TO 2 PRN RN/SPECIAL WARFARE OPERATOR/CALCINER OPERATOR VISITS MAY BE PERFORMED FOR S/S OF UTI. RN TO ASSESS, SPECIAL WARFARE OPERATOR/CALCINER OPERATOR TO OBSERVE INITIATION OF UTI PROTOCOL. RN/CALCINER OPERATOR/SPECIAL WARFARE OPERATOR TO INSTRUCT PATIENT AND/OR CAREGIVER ON S/S OF UTI TO REPORT TO RN/CALCINER OPERATOR/SPECIAL WARFARE OPERATOR IF NEW OR WORSENING SYMPTOMS. DRINK PLENTY OF WATER THROUGHOUT THE DAY TO MAINTAIN HYDRATION (UNLESS CONTRAINDICATED.) URINATE WHEN THE URGE IS FELT, DO NOT WAIT. WASH GENITALS DAILY. WIPE FROM FRONT TO BACK AFTER HAVING A BOWEL MOVEMENT. RN/CALCINER OPERATOR/SPECIAL WARFARE OPERATOR TO OBTAIN MOLECULAR URINE TESTING BY OPTION 1 OR OPTION 2 (OPTION 1) RN/CALCINER OPERATOR/SPECIAL WARFARE OPERATOR TO OBTAIN U/A WITH REFLEX TO UTI PANEL (MOLECULAR) VIA CLEAN CATCH URINE AND IF UNABLE TO OBTAIN MAY PERFORM AN IN AND OUT CATH. IF PATIENT HAS INDWELLING CATHETER MAY OBTAIN FROM SAMPLING PORT. NOTIFY PROVIDER OF RESULTS AND OBTAIN FURTHER ORDERS.] Future Scheduled Test GASTROINTE STINAL MANAGEMENT; RN TO ASSESS AND TEACH, CALCINER OPERATOR/SPECIAL WARFARE OPERATOR TO OBSERVE AND TEACH RELATED TO ALTERED GASTROINTESTINAL STATUS TO MINIMIZE COMPLICATIONS AND REDUCE HOSPITALIZATION. [code = GASTROINTESTINAL MANAGEMENT; RN TO ASSESS AND TEACH, CALCINER OPERATOR/SPECIAL WARFARE OPERATOR TO OBSERVE AND TEACH RELATED TO ALTERED GASTROINTESTINAL STATUS TO MINIMIZE COMPLICATIONS AND REDUCE HOSPITALIZATION.] Future Scheduled Test RN TO ASSE SS AND TEACH, SPECIAL WARFARE OPERATOR/CALCINER OPERATOR TO OBSERVE AND INSTRUCT PATIENT/CAREGIVER ON DIVERTICULAR DISEASE MANAGEMENT. [code = RN TO ASSESS AND TEACH, SPECIAL WARFARE OPERATOR/CALCINER OPERATOR TO OBSERVE AND INSTRUCT PATIENT/CAREGIVER ON DIVERTICULAR DISEASE MANAGEMENT.] Future Scheduled Test FALL REDUC TION MANAGEMENT; RN TO ASSESS AND OBSERVE, SPECIAL WARFARE OPERATOR/CALCINER OPERATOR TO OBSERVE FALL RISK FACTORS AND EDUCATE PATIENT/CAREGIVER ON STRATEGIES TO MINIMIZE THE RISK OF FALLING. [code = FALL REDUCTION MANAGEMENT; RN TO ASSESS AND OBSERVE, SPECIAL WARFARE OPERATOR/CALCINER OPERATOR TO OBSERVE FALL RISK FACTORS AND EDUCATE [...] End Date/Time Encounter Type Admission Type Attending [facility] Department Encounter ID Discharge Date Discharge Status Discharge Condition Discharge Reason Percent Goals Met 2024-06-08 00:00:00 2024-08-06 00:00:00 Outpatient [facility] [id number] 25.00
== END 2024-06-22 14:00 | disposition home or self-care (01) ==
LOC: HO.HMCHD 13:11
PROVIDERS: PCP Internal Medicine; Visit Provider Internal Medicine
DX: Z09 Encounter for follow-up examination after completed treatment for conditions other than malignant neoplasm (principal); K57.32 Diverticulitis of large intestine without perforation or abscess without bleeding; N32.1 Vesicointestinal fistula; N39.0 Urinary tract infection, site not specified; D45 Polycythemia vera; I48.0 Paroxysmal atrial fibrillation

== ENCOUNTER → 2024-06-22 13:10 | Outpatient (BNVA) | payer MEDICARE, SELFPAY | PROVIDERS: PCP Internal Medicine; Visit Provider Internal Medicine | DX: I10 Essential (primary) hypertension (principal); E78.5 Hyperlipidemia, unspecified; M19.90 Unspecified osteoarthritis, unspecified site; D45 Polycythemia vera; K21.9 Gastro-esophageal reflux disease without esophagitis; K57.32 Diverticulitis of large intestine without perforation or abscess without bleeding; N32.1 Vesicointestinal fistula; N39.0 Urinary tract infection, site not specified; I48.0 Paroxysmal atrial fibrillation; Z09 Encounter for follow-up examination after completed treatment for conditions other than malignant neoplasm | CPT/HCPCS: 96127; 99202 ==

== ENCOUNTER 2024-07-26 10:56 | Outpatient (AMB) | payer MEDICARE, SELFPAY ==
--- NOTE | 2024-07-26 11:22 | MHC.OFFVIS ---
Vital Signs 07/26/24 11:33 Height 5 ft 5 in Weight 148 lb 8 oz BMI 24.7 BP 118/68 Blood Pressure Location Lt brachial Position Sitting Pulse 61 Intake Visit Reasons: Vesicointestinal fistula Intake Note: Patient is seen in office for ER follow up visit, following vesicointestinal fistula. Pt c/o: had knee replacement in [place] since had taste loss, loosing weight, Dr Craig did Endoscopy, admits to constipation has been a whole week with no bm, taking meds with no relief, denies any abdominal pain, currently on antibiotics ER:05/23/24 Director Fixed Income Required: No Accompanied by: Self / Same As Patient Allergies diphenhydramine Adverse Reaction (Verified 07/26/24 11:37) Anxiety Medication List - Last Reconciled 07/26/24 by Ryan Anders MD acetaminophen 975 mg PO Q8H PRN amlodipine 5 mg PO DAILY ciprofloxacin HCl Take one tablet oral twice daily for 7 days then decrease to 250mg oral once daily 90 days lisinopril 40 mg PO DAILY metoprolol succinate ER 25 mg PO DAILY omeprazole 40 mg PO DAILY ondansetron 4 mg PO Q8H PRN rivaroxaban (Xarelto) 20 mg PO DAILY sertraline (Zoloft) 50 mg PO DAILY temazepam 15 mg PO BEDTIME PRN HPI Comments Details: 74-year-old female returning to the office for re-evaluation of a possible colovesical fistula. She was previously evaluated as an inpatient on 05/11/2024 because of ongoing weight loss, anorexia and weight loss of approximately 60 lb. She now reports that she has lost an additional 20 lb due to a lack of appetite. She has occasional abdominal pain but mainly complains of constipation. She recently went 1 week without a bowel movement in at the advice of Dr. Craig, took a colonoscopy bowel prep, and was able to pass a large bowel movement. She denies any fever or chills. She denies passing gas per vagina and denies pneumaturia or fecaluria. She continues on antibiotics by mouth. Her past surgical history is significant for hysterectomy approximately 15 years ago. Past medical history is also significant for polycythemia vera for which he is being treated in [place]. Previous CAT scan performed on 04/19/2024 revealed a possible small fistulous tract from the bladder to the sigmoid colon without adjacent inflammatory changes. She returns today for further discussion regarding evaluation of this possible fistula. [facility] Medical History Polycythemia vera Postoperative nausea Osteopenia Hx of Lyme disease GERD (gastroesophageal reflux disease) Paroxysmal atrial fibrillation HTN (hypertension) Persistent atrial fibrillation Surgical History History of total right knee replacement History of esophagogastroduodenoscopy (EGD) Hx of section Hx of hysterectomy Hx of colonoscopy (~08/13/21) Hx of appendectomy Family History Father Cancer Stroke Mother Diabetes Social History Household Members: None Housing: Condominium Are you a primary personal care home administrator to a significant other at home: Yes ( with Alzheimer's and Parkinson's) Do you presently have visiting nurse or other home services: No Patient Tobacco Use Status: Never used Tobacco e-Cigarette/Vaping Use: Never Used Advance Directives Date on File: 03/11/21 service: No Current occupational status: retired Cognitive needs: Yes (walker) Hearing needs: No Vision needs: Yes (Rx glasses) Review of Systems Const All systems reviewed & are unremarkable except as noted in HPI and below Physical Exam Vital Signs: Last Vital Signs Pulse 61 07/26/24 11:33 BP 118/68 07/26/24 11:33 BMI result Body Mass Index 24.7 Const General: comfortable Nutritional Appearance: well nourished Orientation/consciousness: patient oriented x3 Limitations: no limitations Resp Effort & Inspection: normal respiratory effort, no audible wheezes, no cough and no respiratory distress GI Inspection: Yes normal to inspection Palpation (GI): Soft to palpation, nontender, no guarding and not rigid Percussion: Yes normal to percussion Auscultation: normal bowel sounds Rectal Exam - Female: deferred Neuro General: patient oriented x3 Extrem General: Yes normal to inspection and Yes no clubbing, cyanosis or edema Assessment & Plan Assessment & Plan (1) Diverticulitis large intestine: Code(s): K57.32 - Diverticulitis of large intestine without perforation or abscess without bleeding Category: Medical Qualifiers: Diverticulitis bleeding: unspecified bleeding status Diverticulitis complication: unspecified complication status Qualified Code(s): K57.32 - Diverticulitis of large intestine without perforation or abscess without bleeding (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 Prior CT imaging was suggestive of a possible colovesical fistula although she does not have any ongoing symptoms typical of a colovesical fistula including pneumaturia or fecaluria. She does have severe constipation which may be relating to prior episodes of diverticulitis with chronic scarring. I recommended repeating the CT abdomen and pelvis to re-evaluate her colon and this possible fistula. I recommended she return following the CT to review the results and discuss treatment options. She expressed understanding and agrees with the plan. Orders: Orders CT abdomen pelvis w IV con Today K57.32 - Diverticulitis of large intestine without perforation or abscess without bleeding, N32.1 - Vesicointestinal fistula Coding Level of Care Code Est Pt Level 3 (06822) Diagnoses Diverticulitis of large intestine, unspecified bleeding status, unspecified complication status K57.32 Diverticulitis bleeding: unspecified bleeding status Diverticulitis complication: unspecified complication status Baldwin-vesical fistula N32.1
[2024-07-26 11:33] VITALS: BP 118/68; PULSE 61; BMI 24.7
--- OUTSIDE RECORDS SUMMARY | 2024-07-26 12:55 | XMS_ITS ---
Author Organization [facility] Address [address] [place] [address] Care Team Providers Care Dressage Instructor Name Role Phone CYNTHIA HERNANDEZ Primary Care Provider Simnoe Bennett Jr [phone] REASON FOR VISIT very constipated Encounters Encounter Location Date Provider Diagnosis [facility] [address] [place] [address] 07/19/2024 Simone Carig Jr Plan Of Treatment Next Appt Details Provider Name:Simone stephens Jr, 08/30/2024 01:35:00 PM, [address], [address], [place], [address], Progress Notes * ILDA WINTERS LDOB:[birth year] (74 yo F)Acc No.[id number]:07/19/2024 Patient:?ILDA WINTERS :1950???Age:74 Y???Sex:Female Address:[address] [place] [address] [address], [place] [address] * true * Date:? Generated for Printi ng/Fakamlag/eTransmitting on:?07/26/2024 12:54 PM EDT
== END 2024-07-26 12:12 | disposition home or self-care (01) ==
LOC: HO.HGS 10:57
PROVIDERS: PCP Internal Medicine; Visit Provider Surgery
DX: K57.32 Diverticulitis of large intestine without perforation or abscess without bleeding (principal); N32.1 Vesicointestinal fistula
CPT/HCPCS: 99213

== ENCOUNTER → 2024-07-26 10:56 | Outpatient (BNVA) | payer MEDICARE, SELFPAY | PROVIDERS: PCP Internal Medicine; Visit Provider Surgery | DX: N32.1 Vesicointestinal fistula (principal); K57.32 Diverticulitis of large intestine without perforation or abscess without bleeding | CPT/HCPCS: 99212 ==

== ENCOUNTER 2024-08-03 14:33 | Outpatient (AMB) | payer MEDICARE, SELFPAY ==
--- OUTSIDE RECORDS SUMMARY | 2024-07-19 09:25 | XMS_ITS ---
Author Organization [facility] Address [address] [place] [address] Care Team Providers Care Ep Technologist Name Role Phone CYNTHIA HERNANDEZ Primary Care Provider Simone Bennett Jr REASON FOR VISIT very constipated Encounters Encounter Location Date Provider Diagnosis [facility] [address] [place] [address] 07/19/2024 Simone Craig Jr Plan Of Treatment Next Appt Details Provider Name:Simone stephens Jr, 08/30/2024 01:35:00 PM, [address], [address], [place], [address], Progress Notes * ILDA WINTERS LDOB:[birth year] (74 yo F)Acc No.[id number]:07/19/2024 Patient: SHEA PERRYRICJULIETA Simental :1950 A ge:74 Y S ex:Female Address:[address] [place] [address] [address], [place] [id number] * true * Date: Generated for Yodit mullen/Sim/eTransmitting on: 0 08/03/2024 02:34 PM EDT
[2024-08-03 14:51] VITALS: BP 136/80; PULSE 75; TEMP 36.2; O2SAT 94; BMI 25.1
--- NOTE | 2024-08-03 14:51 | A.OFFPC_ITS ---
Vital Signs 08/03/24 14:51 Height 5 ft 5 in Weight 151 lb BMI 25.1 BP 136/80 Blood Pressure Location Lt brachial Position Sitting Pulse 75 Pulse Source Pulse Oximeter Temp 97.1 F Temp Source Axillary Pulse Oximetry (%) 94 Oxygen Delivery Method Room Air Intake Visit Reasons: 1 Month F/U Cardiovascular Surgical Tech Required: No Accompanied by: Self / Same As Patient Allergies diphenhydramine Adverse Reaction (Verified 08/03/24 14:51) Anxiety Tobacco use date assessed: 08/03/24 Fall risk assessment: 1 Fall in past year Last assessed Fall Risk: 08/03/24 Dental Screening Dental Screen Date: 08/03/24 Did you have a dental visit in the last 12 months?: No Did you have a dental problem in the last 6 months where you did not have access to dental care?: No HPI HPI Comments History of Present Illness Details The patient is a 74 year old female with a past medical history of p. afib, htn, hyperlipidemia, OA s/p RTK, polycythemia vera, GERD anxiety, insomnia presenting for follow up Hospitalized 05/09/2024-05/21/2024 at [facility]. She presenting with abdominal pain, N/V/weakness and weight loss. Hospitalized for acute recurrent diverticulitis with colovesicular fistula and urinary tract infection complicated by moderate protein calorie malnutrition and weight loss. Was treated with IV Zosyn. Cultures were negative. Was seen by Gastroenterology and General surgery and Urology. Conversation was had regarding trial of conservative care with antibiotics versus surgical approach. Patient would prefer conservative care especially given very small size of potential fistula without fecaluria. She was able to tolerate diet and participate with physical therapy who recommended STR placement. Patient will be discharged on 2 weeks of Augmentin and follow up with Gastroenterology as EGD showed diodenal ulcers and started on IV PPI then switched to PO Omeprazole which she will continue on discharge and follow with GI to repeat study as scheduled. For acute hypokalemia and hypomagnesemia received replacement. Saw surgery since initial visit. She is going for repeat CT abd/pelvis. She is tolerating small meals, limited diet. Weight is now stable. CV: follows with cardiology. Blood pressure 136/80. She underwent a myocardial perfusion imaging prior to needing a knee surgery in July 2023 which was within normal limits. Denies chest pain, exertional dyspnea Heme/Onc: thrombocytosis, polycythemia vera, was on hydroxyurea therapy was at [facility] transferring from [facility] to [place] ROS see HPI PHYSICAL EXAM: GENERAL: Alert and oriented x 3. NAD EYES: EOMI. Anicteric. HENT: Moist mucous membranes. No scleral icterus. No cervical lymphadenopathy. LUNGS: Clear to auscultation bilaterally. CARDIOVASCULAR: Regular rate and rhythm. ABDOMEN: Soft, non-tender +bs EXTREMITIES: No edema. Non-tender. SKIN: No rashes or lesions. Warm. NEUROLOGIC: No focal neurological deficits. CN II-XII grossly intact PSYCHIATRIC: Cooperative. 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 1. Little interest or pleasure in doing things: not at all 2. Feeling down, depressed, or hopeless: not at all 3. Trouble falling or staying asleep, or sleeping too much: not at all 4. Feeling tired or having little energy: not at all 5. Poor appetite or overeating: not at all 6. Feeling bad about yourself - or that you are a failure or have let yourself or your family down: not at all 7. Trouble concentrating on things, such as reading the newspaper or watching television: not at all 8. Moving or speaking so slowly that other people could have noticed. Or the opposite - being so fidgety or restless that you have been moving around a lot more than usual: not at all 9. Thoughts that you would be better off or of hurting yourself in some way: not at all Total score: 0 Depression Screening Interpretation: Negative Depression Screening Done: Yes 17400 - PHQ-9 Billing: Yes Source: Developed by Drs. Hari Knight, Evelyn Ramirez, Best Blackwell and colleagues, with an educational carol from [employer]. Thrive Questionnaire Date Thrive assessed: 08/03/24 I am a: Patient Within the past 12 months, did the food you bought not last and you didn't have the money to get more?: Never true Within the past 12 months, did you worry whether your food would run out before you got money to buy more?: Never true Do you have trouble paying for medicines?: No Do you have trouble getting transportation to medical appointments?: No Do you have trouble paying your heating and electricity bill?: No Do you have trouble taking care of your child, family member or friend?: No Do you have trouble with day-to-day activities such as bathing, preparing meals, shopping, managing finances, etc.?: No Are you currently unemployed and looking for a job?: No Are you interested in more education?: No THRIVE Score: 0 AUDIT C Alcohol Use Questionnaire (AUDIT-C) 1. How often do you have a drink containing alcohol?: Monthly or less (socially ) 2. How many drinks containing alcohol do you have on a typical day when you are drinking?: 1 or 2 3. How often do you have six or more drinks on one occasion?: Less than monthly Total Score: 2 KALANI-7 AMB Questionnaire KALANI-7 Date KALANI - 7 assessed: 08/03/24 Feeling nervous, anxious, or on edge: 0 = Not at all Not being able to stop or control worryin = Not at all Worrying too much about different things: 0 = Not at all Trouble relaxin = Not at all Being so restless that it is hard to sit still: 0 = Not at all Becoming easily annoyed or irritable: 0 = Not at all Feeling afraid as if something awful might happen: 0 = Not at all Total KALANI-7 score (0-4 normal; 5-9 mild; 10-14 moderate; 15-21 severe): 0 Source: Developed by Drs. Hari Knight, Evelyn Ramirez, Best Blackwell and colleagues, with an educational carol from [employer]. Physical exam (Primary Care) Vital Signs: Last Vital Signs Temp 97.1 F 08/03/24 14:51 Pulse 75 08/03/24 14:51 BP 136/80 08/03/24 14:51 Pulse Ox 94 08/03/24 14:51 Oxygen Delivery Method Room Air 08/03/24 14:51 BMI result Body Mass Index 25.1 Tobacco/Smoking Status: Tobacco use Status Tobacco use date assessed 08/03/24 08/03/24 14:53 Patient Tobacco Use Status Never used Tobacco 08/03/24 14:53 e-Cigarette/Vaping Use Never Used 08/03/24 14:53 PHQ-9: PHQ-9 Score PHQ-9: Total score 0 08/03/24 15:12 Depression Screening Interpretation: Negative Thrive Assessment: Date of Thrive Assessment Date Thrive assessed 08/03/24 08/03/24 14:53 Coding Level of Care Code Est Pt Level 4 (70619) Diagnoses Primary hypertension I10 Hypertension type: primary hypertension Paroxysmal atrial fibrillation I48.0 Polycythemia vera D45 Diverticulitis of large intestine, unspecified bleeding status, unspecified complication status K57.32 Diverticulitis bleeding: unspecified bleeding status Diverticulitis complication: unspecified complication status Additional Codes PHQ-9 - 15812 - PHQ-9 Billing: Yes ([id number]) Assessment & Plan Assessment & Plan (1) HTN (hypertension): Code(s): I10 - Essential (primary) hypertension Category: Medical Qualifiers: Hypertension type: primary hypertension Qualified Code(s): I10 - Essential (primary) hypertension (2) Paroxysmal atrial fibrillation: Code(s): I48.0 - Paroxysmal atrial fibrillation Category: Medical (3) Polycythemia vera: Code(s): D45 - Polycythemia vera Category: Medical (4) Diverticulitis large intestine: Code(s): K57.32 - Diverticulitis of large intestine without perforation or abscess without bleeding Category: Medical Qualifiers: Diverticulitis bleeding: unspecified bleeding status Diverticulitis complication: unspecified complication status Qualified Code(s): K57.32 - Diverticulitis of large intestine without perforation or abscess without bleeding Plan 74 year old for follow up Colitis possilble fistula. Saw surgery. 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
== END 2024-08-03 15:26 | disposition home or self-care (01) ==
LOC: HO.HMCHD 14:33
PROVIDERS: PCP Internal Medicine; Visit Provider Internal Medicine
DX: I10 Essential (primary) hypertension (principal); I48.0 Paroxysmal atrial fibrillation; D45 Polycythemia vera; K57.32 Diverticulitis of large intestine without perforation or abscess without bleeding

== ENCOUNTER → 2024-08-03 14:33 | Outpatient (BNVA) | payer MEDICARE, SELFPAY | PROVIDERS: PCP Internal Medicine; Visit Provider Internal Medicine | DX: I10 Essential (primary) hypertension (principal); I48.0 Paroxysmal atrial fibrillation; D45 Polycythemia vera; K57.32 Diverticulitis of large intestine without perforation or abscess without bleeding; Z13.31 Encounter for screening for depression; Z13.30 Encounter for screening examination for mental health and behavioral disorders, unspecified | CPT/HCPCS: 96127; 99212 ==

== ENCOUNTER 2024-08-07 13:55 | Outpatient (REF) | payer MEDICARE, SELFPAY ==
--- NOTE | ~2024-08-07 | MM_ITS ---
EXAMINATION: MM SCREENING DIGITAL BREAST TOMOSYNTHESIS, BILATERAL CLINICAL INFORMATION: Screening. Asymptomatic. COMPARISON: Mammography: Comparison is made with available priors TECHNIQUE: Digital breast mammography with tomosynthesis is performed in both the craniocaudal and mediolateral oblique views along with computer-aided detection (CAD). FINDINGS: There are scattered areas of fibroglandular density (ACR BI-RADS breast composition Category b). There are no significant masses, abnormal calcifications, or other abnormalities. MM/MM tomosynthesis screening BI IMPRESSION: No mammographic evidence of malignancy. ASSESSMENT: BI-RADS BI-RADS 1 - Negative RECOMMENDATION: Routine annual mammography screening. 1 year F/U This examination should not preclude the clinical evaluation of a suspicious palpable abnormality. This patient's information was entered into a reminder system with a target due date for their next mammogram. Electronically signed by: Tonya Madrigal DO 08/10/2024 05:38 PM EDT
== END 2024-08-07 13:56 | disposition home or self-care (01) ==
LOC: HO.MAMMO 13:55
PROVIDERS: Visit Provider Internal Medicine
DX: Z12.31 Encounter for screening mammogram for malignant neoplasm of breast (principal)
CPT/HCPCS: 77063; 77067

== ENCOUNTER → 2024-08-07 14:45 | Outpatient (BNV) | payer MEDICARE, SELFPAY | PROVIDERS: Visit Provider Internal Medicine | DX: Z12.31 Encounter for screening mammogram for malignant neoplasm of breast (principal) | CPT/HCPCS: 77063; 77067 ==

== ENCOUNTER → 2024-08-20 14:27 | Outpatient (BNV) | payer MEDICARE, SELFPAY | PROVIDERS: PCP Internal Medicine Hypertension Specialist; Referring Provider Internal Medicine Hypertension Specialist; Visit Provider Internal Medicine Medical Oncology | DX: D47.1 Chronic myeloproliferative disease (principal); D47.3 Essential (hemorrhagic) thrombocythemia | CPT/HCPCS: 99204 ==

== ENCOUNTER 2024-08-28 11:53 | Outpatient (REF) | payer MEDICARE, SELFPAY ==
--- OUTSIDE RECORDS SUMMARY | 2023-09-12 06:30 | XMS_ITS ---
Author Organization [facility] Address [address] [facility] [place] [address] Care Team Providers Care Manager Video Games Name Role Phone Ross Moran MD Primary Care Provider Emerson Blandon Unavailable [phone] Allergies Allergen (clinical drug ingredient) Drug/Non Drug [...] 20 MG TAKE 1 TABLET BY EVONNE EVERY DAY Oral; Duration: 30 Days Active [...] 09/12/2023 Encounters Encounter Location Date Provider Diagnosis [facility] [place] [address] [place] [address] 09/12/2023 Emerson Mcbride Plan Of Treatment No Information Progress Notes * Dunia ELLIOTT LDOB:[birth year] (74 yo F)Acc No.[id number]:09/12/2023 Progress Notes Patient: Dunia PERRY Provider: Thien Mcbride DPM :1950 A ge:73 Y S ex:Female Date:09/12/2023 Address:[address] [place] [address], [facility] Pcp:Ross Moran MD Subjective: * Chief Complaints: [...] enies. C ardiovascular: Pacemaker d enies. M MANAGER SUPPORT SERVICES d enies. W PW d enies. C [...] Pending * Provider: Thien Mcbride DPM Date: 09/12/2023 Generated for Yodit mullen/Sim/Perry on: 08/28/2024 01:13 PM EDT
--- OUTSIDE RECORDS SUMMARY | 2024-05-25 06:00 | XMS_ITS ---
Author Organization [facility] Address 10 [facility] [address] [place] [address] Care Team Providers Care Fuels Engineer Name Role Phone CYNTHIA HERNANDEZ Primary Care Provider Simone Bennett Jr [phone] REASON FOR VISIT wt loss,early satiety,colitis Encounters Encounter Location Date Provider Diagnosis [facility] Outpatient [address] [place] [id number] 05/25/2024 Simone Craig Jr Plan Of Treatment Next Appt Details Provider Name:Simone stephens Jr, 08/30/2024 01:35:00 PM, [address] [facility], [address], [place], [address], Progress Notes * ILDA WINTERS LDOB:[birth year] (74 yo F)Acc No.[id number]:05/25/2024 EGD and COL/MAC Patient: Kamille MARTINEZ ILDA Simental Provider: Stephen Craig MD :1950 A ge:74 Y S ex:Female Date:05/25/2024 Address:[address] [place] [address] [address], [id number] Pcp:CYNTHIA HERNANDEZ Subjective: * Chief Complaints: * [...] 05/25/2024 Generated for Yodit mullen/Sim/Perry on: 0 08/28/2024 01:13 PM EDT
[2024-08-28 14:11] LABS: Alanine Aminotransferase 14 U/L (0-31); Albumin Level 3.6 g/dL (3.5-5.0); Alkaline Phosphatase 45 U/L (39-117); Anion Gap 11 (12-20); Aspartate Amino Transferase 27 U/L (5-31); Blood Urea Nitrogen 14 mg/dL (9-16); Calcium 10.4 mg/dL (8.4-10.2); Carbon Dioxide 22 mmol/L (22-29); Chloride 110 mmol/L (96-108); Cholesterol 225 mg/dL (<200); Estimated Glomerular Filt Rate 40; HDL Cholesterol 41 mg/dL (>40); Potassium 3.7 mmol/L (3.3-5.1); Sodium 139 mmol/L (135-145); Total Protein 6.3 g/dL (6.5-8.0); Triglycerides 118 mg/dL (<150)
[2024-08-28 14:48] LABS: Folate 2.9 ng/mL (> or = 4.0); Vitamin B12 399 pg/mL (200-900)
== END 2024-08-28 11:54 | disposition home or self-care (01) ==
LOC: HO.HMGCLDS 11:53
PROVIDERS: PCP Internal Medicine; Referring Provider Surgery; Visit Provider Internal Medicine
DX: K57.32 Diverticulitis of large intestine without perforation or abscess without bleeding (principal); K59.00 Constipation, unspecified; I10 Essential (primary) hypertension; I48.0 Paroxysmal atrial fibrillation; R71.8 Other abnormality of red blood cells
CPT/HCPCS: 36415; 80053; 80061; 82607; 82746; 84443

== ENCOUNTER 2024-08-29 14:39 | Outpatient (REF) | payer MEDICARE, SELFPAY ==
--- OUTSIDE RECORDS SUMMARY | 2023-09-12 06:30 | XMS_ITS ---
Author Organization [facility] Address [address] [place] [address] Care Team Providers Care Mainspring Reverse Winder Name Role Phone Ross Moran MD Primary Care Provider Emerson Blandon Unavailable [phone] Allergies Allergen (clinical drug ingredient) Drug/Non Drug [...] 09/12/2023 Encounters Encounter Location Date Provider Diagnosis [facility] [place] [address] [place] [address] 09/12/2023 Emerson Mcbride Plan Of Treatment No Information Progress Notes * Dunia ELLIOTT LDOB:[birth year] (74 yo F)Acc No.[id number]:09/12/2023 Progress Notes Patient: Dunia PERRY Provider: Thien Mcbride DPM :1950 A ge:73 Y S ex:Female Date:09/12/2023 Address:[address] [place] [address], [facility] Pcp:Ross Moran MD Subjective: * Chief Complaints: [...] C ardiovascular: Pacemaker d enies. M MANAGER CARDIOVASCULAR d enies. W PW d enies. C [...] Date: 09/12/2023 Generated for Yodit mullen/Sim/Perry on: 08/29/2024 03:16 PM EDT
--- OUTSIDE RECORDS SUMMARY | 2024-05-25 06:00 | XMS_ITS ---
Author Organization [facility] Address 10 [facility] [address] [place] [address] Care Team Providers Care Housing Case Manager Name Role Phone CYNTHIA HERNANDEZ Primary Care Provider Simone Bennett Jr [phone] REASON FOR VISIT wt loss,early satiety,colitis Encounters Encounter Location Date Provider Diagnosis [facility] [place] [address] [place] [id number] 05/25/2024 Simone Craig Jr Plan Of Treatment Next Appt Details Provider Name:Simone stephens Jr, 08/30/2024 01:35:00 PM, [address] [facility], [address], [place], [address], Progress Notes * ILDA WINTERS LDOB:[birth year] (74 yo F)Acc No.[id number]:05/25/2024 EGD and COL/MAC Patient: Kamille MARTINEZ ILDA Simental Provider: Stephen Craig MD :1950 A ge:74 Y S ex:Female Date:05/25/2024 Address:[address] [place] [address] [address], [id number] Pcp:CYNTHIA HERNANDEZ Subjective: * Chief Complaints: * [...] 05/25/2024 Generated for Yodit mullen/Sim/Perry on: 0 08/29/2024 03:16 PM EDT
--- NOTE | ~2024-08-29 | CT_ITS ---
EXAMINATION: CT ABDOMEN AND PELVIS WITH CONTRAST CLINICAL INFORMATION: Diverticulitis without perforation or abscess. Concerning for possible colovesical fistula. Abdominal pain. Constipation. COMPARISON: May 09, 2024. TECHNIQUE: Multidetector volumetric images were obtained from the superior aspect of the liver through the pubic symphysis following administration 85 mL of Omnipaque 350 intravenous contrast. Sagittal and coronal reformatted images were obtained on the technologist's workstation. Oral contrast: Yes This CT examination was performed using dose optimization techniques as appropriate, variously including the following: *Automated exposure control *Adjustment of mA and/or kV according to patient size (this includes techniques or standardized protocols for targeted exams where dose is matched to indication/reason for exam; i.e. extremities or head) *Use of iterative reconstruction technique. DLP: 351 mGy centimeter. FINDINGS: LUNG BASES: No acute airspace disease. LIVER, GALLBLADDER, AND BILIARY TREE: [Measures 13 cm. No focal mass. Portal veins, hepatic veins and intrahepatic portion of the IVC are patent. Multiple, different sizes, 3 and 4 cm Secretions within the lumen of the gallbladder. No pericholecystic fluid collection or gallbladder wall thickening. No intrahepatic or extrahepatic biliary ductal dilatation. PANCREAS: No peripancreatic fluid collection. There is fatty atrophy of the parenchyma. SPLEEN: 9 cm. No focal mass. ADRENAL GLANDS: No nodular lesion. Calcification in the left adrenal gland. KIDNEYS AND URETERS: Bilateral renal cortical thinning. No hydronephrosis. Multifocal different sizes exophytic cystic lesions, the largest measures 3 cm in the right kidney. No gross renal mass. No gross nephrolithiasis. BLADDER: Collapsed. GASTROINTESTINAL TRACT: Scattered diverticula in the left hemicolon. There is no intestinal obstruction pattern. No pneumatosis intestinalis. No pneumoperitoneum. No pericolonic edema pattern. No ascites. No peripheral enhancing fluid collection in the peritoneal cavity. There is question gas in the anterior pericardium in the region of the vagina and the urethra. There is indistinct margins of the fat planes of the prerectal region. ABDOMINAL WALL: Small fat-containing umbilical and infraumbilical hernias. LYMPH NODES: Prominent mesenteric and retroperitoneum. VASCULAR: Mixed plaques in the abdominal aorta wall and iliac arteries mesenteric arteries. Calcified plaques in the splenic artery. No aneurysm or dissection abdominal aorta. PELVIC VISCERA: Absent uterus. OSSEOUS STRUCTURES: Grade 1 anterolisthesis at L5-S1 secondary to spondylolysis pars interarticularis resulting in bilateral neuroforamina stenosis. Multilevel thoracolumbar spondylosis. Osteopenia versus osteoporosis. 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 CT/CT abdomen pelvis w IV con IMPRESSION: Diverticular disease without acute colitis. No abscess or phlegmon. Colovesical fistula cannot be entirely excluded. No overt fistula tract. Cholelithiasis. Bilateral renal cysts. Atherosclerosis disease. Grade 1 anterolisthesis L5-S1 secondary to a lesser pars interarticularis on a degenerative basis. Fleischner guidelines were followed. Electronically signed by: Errol Fuller MD 08/29/2024 03:44 PM EDT
[2024-08-29] MEDS: iohexoL 350 MG/ML 100 ML INFUS..BTL 85 ML IV (15:32)
== END 2024-08-29 14:40 | disposition home or self-care (01) ==
LOC: HO.CT 14:39
PROVIDERS: PCP Internal Medicine; Visit Provider Surgery
DX: N32.1 Vesicointestinal fistula (principal); K57.32 Diverticulitis of large intestine without perforation or abscess without bleeding
CPT/HCPCS: 74177; Q9967

== ENCOUNTER → 2024-08-29 14:41 | Outpatient (BNV) | payer MEDICARE, SELFPAY | PROVIDERS: PCP Internal Medicine; Visit Provider Radiology Diagnostic Radiology | DX: K57.30 Diverticulosis of large intestine without perforation or abscess without bleeding (principal) | CPT/HCPCS: 74177 ==

== ENCOUNTER 2024-09-17 15:10 | Outpatient (AMB) | payer MEDICARE, SELFPAY ==
--- OUTSIDE RECORDS SUMMARY | 2023-09-12 06:30 | XMS_ITS ---
Author Organization [facility] Address [address] [facility] [place] [address] Care Team Providers Care Deputy Of Counter Intelligence Name Role Phone Ross Moran MD Primary Care Provider Emerson Blandon Unavailable [phone] Allergies Allergen (clinical drug ingredient) Drug/Non Drug [...] Xarelto 20 MG TAKE 1 TABLET BY EVERY DAY Oral; Duration: 30 Days Active [...] 09/12/2023 Encounters Encounter Location Date Provider Diagnosis [facility] [place] [address] [place] [address] 09/12/2023 Emerson Mcbride Plan Of Treatment No Information Progress Notes * Dunia ELLIOTT LDOB:[birth year] (74 yo F)Acc No.[id number]:09/12/2023 Progress Notes Patient: Dunia PERRY Provider: Thien Mcbride DPM :1950 A ge:73 Y S ex:Female Date:09/12/2023 Address:[address] [place] [address], [facility] Pcp:Ross Moran MD Subjective: * Chief Complaints: [...] enies. C ardiovascular: Pacemaker d enies. M AIR BRAKE MECHANIC d enies. W PW d enies. C [...] 0 09/12/2023 Generated for Yodit mullen/Sim/Perry on: 09/17/2024 03:14 PM EDT
--- OUTSIDE RECORDS SUMMARY | 2024-05-25 06:00 | XMS_ITS ---
Author Organization [facility] Address [address] [facility] [address] [place] [address] Care Team Providers Care Vegetable Worker Name Role Phone CYNTHIA HERNANDEZ Primary Care Provider Simone Bennett Jr REASON FOR VISIT wt loss,early satiety,colitis Encounters Encounter Location Date Provider Diagnosis [facility] [place] [address] [place] [id number] 05/25/2024 Simone Craig Jr Plan Of Treatment Next Appt Details Provider Name:Simone stephens Jr, 09/05/2025 01:35:00 PM, [address] [facility], [address], [place], [address], Progress Notes * ILDA WINTERS LDOB:[birth year] (74 yo F)Acc No.[id number]:05/25/2024 EGD and COL/MAC Patient: Kamille MARTINEZ ILDA Simental Provider: Stephen Craig MD :1950 A ge:74 Y S ex:Female Date:05/25/2024 Address:[address] [place] [address] [address], [id number] Pcp:CYNTHIA HERNANDEZ Subjective: * Chief Complaints: * [...] 05/25/2024 Generated for Yodit mullen/Sim/Perry on: 0 09/17/2024 03:14 PM EDT
--- NOTE | 2024-09-17 15:09 | MHC.PC.OV ---
Vital Signs 09/17/24 15:14 09/17/24 15:16 09/17/24 15:21 Height 5 ft 6 in Weight 149 lb BMI 24.0 BP 130/100 H Blood Pressure Location Lt brachial Position Sitting Respiration 17 Pulse 65 Pulse Source Pulse Oximeter Temp 97.1 F Pulse Oximetry (%) 99 Oxygen Delivery Method Room Air Intake Visit Reasons: Pre- Op CaT Surg Facility Attendant Required: No Accompanied by: Self / Same As Patient Allergies diphenhydramine Adverse Reaction (Verified 09/17/24 15:39) Anxiety Medication List - Last Reconciled 09/17/24 by Eloy Germain MD acetaminophen 975 mg PO Q8H PRN cholecalciferol (vitamin D3) 25 mcg PO DAILY cyanocobalamin (vitamin B-12) 1,000 mcg sublingual DAILY folic acid 1 mg PO DAILY linaclotide (Linzess) 145 mcg PO DAILY lisinopril 40 mg PO DAILY metoprolol succinate ER 25 mg PO DAILY omeprazole 40 mg PO DAILY rivaroxaban (Xarelto) 20 mg PO DAILY temazepam 15 mg PO BEDTIME PRN Tobacco use date assessed: 08/03/24 Dental Screening Dental Screen Date: 08/03/24 HPI Pre- Op CaT Surg HPI Details Patient would like a pre op clearance for upcoming cataract procedure. 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 Hari Knight, Evelyn Ramirez, Best Blackwell and colleagues, with an educational carol from [employer]. Physical exam (Primary Care) Vital Signs: Last Vital Signs Temp 97.1 F 09/17/24 15:16 Pulse 65 09/17/24 15:21 Resp 17 09/17/24 15:21 BP 130/100 H 09/17/24 15:21 Pulse Ox 99 09/17/24 15:21 Oxygen Delivery Method Room Air 09/17/24 15:21 BMI result Body Mass Index 24.0 Tobacco/Smoking Status: Tobacco use Status Tobacco use date assessed 08/03/24 09/17/24 15:14 Patient Tobacco Use Status Never used Tobacco 09/17/24 15:14 e-Cigarette/Vaping Use Never Used 09/17/24 15:14 Thrive Assessment: Date of Thrive Assessment Date Thrive assessed 08/03/24 09/17/24 15:14 Const General: cooperative and healthy appearing Nutritional Appearance: well nourished Orientation/consciousness: patient oriented x3 Limitations: no limitations HENMT Head: Yes normal to inspection Eyes General: appearance normal, both eyes and all related structures Neck Neck: Yes normal visual inspection Chest Chest palpation & inspection: normal palpation of entire chest wall Resp Effort & Inspection: normal respiratory effort Neuro General: patient oriented x3 Coding Level of Care Code Est Pt Level 4 (40029) Complex EM visit Add On G2211 Diagnoses Pre-operative clearance Z01.818 Assessment & Plan Assessment & Plan (1) Pre-operative clearance: Code(s): Z01.818 - Encounter for other preprocedural examination Plan: Blood and EKG revd. Patient is cleared for surgery. Hold Xarelto five days prior to surgery and start one day after procedure. Post op care as per the Eye surgeon.
[2024-09-17 15:14] VITALS: BMI 24.0
--- OUTSIDE RECORDS SUMMARY | 2024-09-17 15:14 | XMS_ITS | Encounter Summary ---
Author Organization [facility] Address [address] [place] [address] Phone Care Team Providers Care Dietician Name Role Phone Ross Moran MD Primary Care Provider Wil Banks MD Unavailable Hari Stevens MD, EdM Unavailable [phone] Kellie Croft RN Unavailable Kathryn [email or web address] Lynda Mora PA-C Unavailable Larissa Perez MD Primary Care Provider Encounter Details Date Type Department Care Team (Late st Contact Info) Description 07/19/2023 Procedure Pass BWF Periop 6th floor [address] [place] [address] Social History Tobacco Use Types Packs/Day Years Used Date Smoking Tobacco: Never Smokeless Tobacco: Never Alcohol Use Standard Drinks/Week Comments Not Currently 0 (1 standard drink = 0.6 oz pur e alcohol) Education Answer Date Recorded Are you interested in more education? Not on kareen e 05/16/2023 Are you concerned about learning? Not on file 05/16/2023 No 05/16/2023 No 05/16/2023 Digital Access Answer Date Recorded No 05/16/2023 No 05/16/2023 Reliable internet access at home? Not on file 05/16/2023 Device with a working camera? Not on file Intimate Partner Violence Answer Date R ecorded Are you denied basic needs s uch as food, clothing, or medical care? Deferred 07/06/2023 In the past 12 months have y ou been in a relationship with a person who hurts, threatens, or tries to control you? Deferred 07/06/2023 Are you denied basic needs s uch as food, clothing, or medical care? Deferred 07/06/2023 In the past 12 months have y ou been in a relationship with a person who hurts, threatens, or tries to control you? Deferred 07/06/2023 Comments No Sex and Gender Information Value Date Recorded Sex Assigned at Female 05/16/2023 2:35 PM EDT Legal Sex Female 9:59 PM EDT Gender Identity Female 05/16/2023 2:35 PM EDT Sexual Orientation Straight 05/16/2023 2: 35 PM EDT documented as of this encounter Plan of Treatment Upcoming Encounters Date Type Department Care Team (Late st Contact Info) Description 12/10/2024 1:30 PM EDT Office Visit [facility] Orthopedics at [address] [address] Wil Banks MD [address] [address] [email or web address] documented as of this encounter Visit Diagnoses Not on filedocumented in this encounter Care Teams Dietician Relationship Specialty Start Date End Date Ross Moran MD [address] [place] [address] [place] [address] PCP - General Internal Medicine 05/16/23 07/12/24 Larissa Perez MD [address] [place] [address] [place] [address] PCP - General Internal Medicine 07/13/24 Wil Banks MD [address] [facility] [address] [place] [address] [email or web address] Referring Physician Orthopedic Surgery 07/13/23 Hari Stevens MD, EdM [address] [address] [email or web address] Primary Oncologist Hematology 07/13/23 Kellie Croft RN [address] [place] [address] [email or web address] Registered Nurse 07/13/23 Lynda Mora PA-C [address] [place] [phone] [email or web address] Physician Glass Polisher Physician Glass Polisher 07/13/23 documented as of this encounter Additional Source Comments The information contained in this document represents components of the legal health record. It is not the complete legal health record.[facility]
[2024-09-17 15:16] VITALS: TEMP 36.2
[2024-09-17 15:21] VITALS: BP 130/100; PULSE 65; RESP 17; O2SAT 99
== END 2024-09-17 15:40 | disposition home or self-care (01) ==
LOC: HO.HMCHD 15:10
PROVIDERS: PCP Internal Medicine; Visit Provider Internal Medicine
DX: Z01.818 Encounter for other preprocedural examination (principal)

== ENCOUNTER → 2024-09-17 15:10 | Outpatient (BNVA) | payer MEDICARE, SELFPAY | PROVIDERS: PCP Internal Medicine; Visit Provider Internal Medicine | DX: Z01.818 Encounter for other preprocedural examination (principal) | CPT/HCPCS: 99212 ==

== ENCOUNTER 2024-09-24 12:32 | Outpatient (AMB) | payer MEDICARE, SELFPAY ==
--- OUTSIDE RECORDS SUMMARY | 2023-09-12 06:30 | XMS_ITS ---
Author Organization [facility] Address [address] [facility] [place] [address] Care Team Providers Care Transfer Car Operator Name Role Phone Ross Moran MD Primary Care Provider Emerson Blandon Unavailable [phone] Allergies Allergen (clinical drug ingredient) Drug/Non Drug [...] 09/12/2023 Encounters Encounter Location Date Provider Diagnosis [facility] [place] [address] [place] [address] 09/12/2023 Emerson Mcbride Plan Of Treatment No Information Progress Notes * Dunia ELLIOTT LDOB:[birth year] (74 yo F)Acc No.[id number]:09/12/2023 Progress Notes Patient: Dunia PERRY Provider: Thien Mcbride DPM :1950 A ge:73 Y S ex:Female Date:09/12/2023 Address:[address] [place] [address], [facility] Pcp:Ross Moran MD Subjective: * Chief Complaints: [...] enies. C ardiovascular: Pacemaker d enies. M SHIRT FOLDER d enies. W PW d enies. C [...] 0 09/12/2023 Generated for Yodit mullen/Sim/Perry on: 0 09/24/2024 12:37 PM EDT
--- OUTSIDE RECORDS SUMMARY | 2024-05-25 06:00 | XMS_ITS ---
Author Organization [facility] Address 10 [facility] [address] [place] [address] Care Team Providers Care Sort Line Name Role Phone CYNTHIA HERNANDEZ Primary Care Provider Simone Bennett Jr REASON FOR VISIT wt loss,early satiety,colitis Encounters Encounter Location Date Provider Diagnosis [facility] [address] [place] [id number] 05/25/2024 Simone Craig Jr Plan Of Treatment Next Appt Details Provider Name:Simone stephens Jr, 09/05/2025 01:35:00 PM, [address] [facility], [address], [place], [address], Progress Notes * ILDA WINTERS LDOB:[birth year] (74 yo F)Acc No.[id number]:05/25/2024 EGD and COL/MAC Patient: Kamille MARTINEZ ILDA Simental Provider: Stephen Craig MD :1950 A ge:74 Y S ex:Female Date:05/25/2024 Address:[address] [place] [address] [address], [id number] Pcp:CYNTHIA HERNANDEZ Subjective: * Chief Complaints: * [...] 05/25/2024 Generated for Yodit mullen/Sim/Perry on: 0 09/24/2024 12:37 PM EDT
--- OUTSIDE RECORDS SUMMARY | 2024-09-24 12:37 | XMS_ITS | Encounter Summary ---
Author Organization Located Within [facility] Address [address] [place] [address] Phone Care Team Providers Care Casting Plug Assembler Name Role Phone Ross Moran MD Primary Care Provider Wil Banks MD Unavailable Hari Stevens MD, EdM Unavailable [phone] Kellie Croft RN Unavailable Kathryn [email or web address] Lynda Mora PA-C Unavailable [phone] Larissa Perez MD Primary Care Provider [phone] Encounter Details Date Type Department Care Team (Late st Contact Info) Description 07/19/2023 Procedure Pass BWF Periop 6th floor [address] [place] [address] Social History Tobacco Use Types Packs/Day Years [...] Description 12/10/2024 1:30 PM EDT Office Visit [facility] Orthopedics at [address] [address] Wil Banks MD [address] [address] [email or web address]. GRAY documented as of this encounter Visit Diagnoses Not on filedocumented in this encounter Care Teams Casting Plug Assembler Relationship Specialty Start Date End Date Ross Moran MD [address] [place] [address] [place] [address] PCP - General Internal Medicine 05/16/23 07/12/24 Larissa Perez MD [address] [place] [address] [place] [address] PCP - General Internal Medicine 07/13/24 Wil Banks MD [address] [facility] [address] [place] [address] [email or web address] Referring Physician Orthopedic Surgery 07/13/23 Hari Stevens MD, EdM [address] [address] [email or web address] Primary Oncologist Hematology 07/13/23 Kellie Croft RN [address] [place] [address] [email or web address] Registered Nurse 07/13/23 Lynda Mora PA-C [address] [place] [phone] [email or web address] Physician Malware Analyst Physician Malware Analyst 07/13/23 documented as of this encounter Additional Source Comments The information contained in this document represents components of the legal health record. It is not the complete legal health record.Located Within [facility]
[2024-09-24 12:54] VITALS: BP 160/100; PULSE 61; BMI 24.0
--- NOTE | 2024-09-24 12:54 | MHC.OFFVIS ---
Vital Signs 09/24/24 12:54 Height 5 ft 6 in Weight 148 lb 9.465 oz BMI 24.0 BP 160/100 H Blood Pressure Location Lt brachial Pulse 61 Pulse Source Monitor Intake Visit Reasons: 6 month f/up Cataract surgery 09/27 Semiautomatic Taper Operator Required: No Allergies diphenhydramine Adverse Reaction (Verified 09/24/24 12:57) Anxiety Medication List - Last Reconciled 09/24/24 by Allegra Escoto NP-C acetaminophen 975 mg PO Q8H PRN cholecalciferol (vitamin D3) 25 mcg PO DAILY cyanocobalamin (vitamin B-12) 1,000 mcg sublingual DAILY folic acid 1 mg PO DAILY linaclotide (Linzess) 145 mcg PO DAILY lisinopril 40 mg PO DAILY metoprolol succinate ER 25 mg PO DAILY omeprazole 40 mg PO DAILY rivaroxaban (Xarelto) 20 mg PO DAILY temazepam 15 mg PO BEDTIME PRN HPI HPI 6 month f/up Cataract surgery 09/27: Details: Dunia is a 74-year-old female with past medical history of hypertension, paroxysmal atrial fibrillation who presents for follow-up. Her last prior visit to our office was 10/25/2023. She underwent a right total knee replacement at [facility] 11/2023. She also had [facility] [place] 05/2024 with diverticulitis and small colovesicular fistula that was managed medically. She is scheduled to undergo cataract surgery this and again in a few weeks. Today she reports she has been doing generally well since her last hospital discharge. She has not had any recent known recurrent atrial fibrillation. She denies heart palpitations, lightheadedness, presyncope, syncope. She has no chest discomfort at rest or with activity. No shortness of breath, PND, orthopnea or edema. Compliant with medications. No bleeding issues reported. She states she was taken off amlodipine a few months ago due to low blood pressure readings. She does not take her blood pressure at home. She has upcoming PCP visit in October. [facility] Medical History Polycythemia vera Postoperative nausea Osteopenia Hx of Lyme disease GERD (gastroesophageal reflux disease) Paroxysmal atrial fibrillation HTN (hypertension) Persistent atrial fibrillation Surgical History History of total right knee replacement History of esophagogastroduodenoscopy (EGD) Hx of section Hx of hysterectomy Hx of colonoscopy (~08/13/21) Hx of appendectomy Family History Father Cancer Stroke Mother Diabetes Social History Household Members: None Housing: Condominium Are you a primary manager respiratory care to a significant other at home: Yes ( with Alzheimer's and Parkinson's) Do you presently have visiting nurse or other home services: No Patient Tobacco Use Status: Never used Tobacco e-Cigarette/Vaping Use: Never Used Advance Directives Date on File: 03/11/21 service: No Current occupational status: retired Cognitive needs: Yes (walker) Hearing needs: No Vision needs: Yes (Rx glasses) Review of Systems Const All systems reviewed & are unremarkable except as noted in HPI and below ENT Denies dizziness Card Denies chest pain, Denies chest pain at rest, Denies chest pain with activity, Denies rapid heart rate, Denies pedal edema, Denies edema, Denies leg edema, Denies lightheadedness, Denies palpitations, Denies dyspnea, Denies dyspnea on exertion and Denies orthopnea Resp Denies cough, Denies dyspnea and Denies dyspnea on exertion GI Denies hematochezia and Denies change in stool character Musc Denies abnormal gait, Denies limited range of motion, Denies muscle cramps, Denies muscle weakness, Denies numbness, Denies radiating pain into limb, Denies stiffness and Denies tingling Neuro Denies abnormal gait, Denies dizziness, Denies numbness and Denies tingling Endo Denies palpitations Physical Exam Vital Signs: Last Vital Signs Pulse 61 09/24/24 12:54 BP 160/100 H 09/24/24 12:54 BMI result Body Mass Index 24.0 Const General: cooperative, healthy appearing, comfortable and no acute distress Orientation/consciousness: patient oriented x3 Neck Neck: Yes normal visual inspection and Yes no JVD Resp Effort & Inspection: normal respiratory effort Auscultation: clear to auscultation bilaterally, no rales, no rhonchi and no wheezes Cardio Rate: regular rate Rhythm: regular rhythm Heart sounds: S1 normal heart sound present, S2 normal heart sound present, no gallops, no murmurs and no rubs Neuro General: patient oriented x3 Extrem General: Yes normal to inspection and No no pedal edema Psych Appearance: grossly normal Mental Status: mental status grossly normal Speech and movement: Normal speech and movement present Office Procedures EKG Details: Today, read by me sinus rhythm with PAC, rate 61, Qtc 412ms [id number], Complete Assessment & Plan Assessment & Plan (1) Paroxysmal atrial fibrillation: Code(s): I48.0 - Paroxysmal atrial fibrillation Category: Medical Plan: History of paroxysmal atrial fibrillation. EKG today sinus rhythm with sinus rhythm with 1 Pac, rate 61. Last echocardiogram 05/22/2021 with EF 60-65% mild tricuspid regurgitation, no reported regional wall motion abnormalities. Nuclear stress test 07/08/2023 showed normal myocardial perfusion imaging. Labs 08/28/2024 showed creatinine 1.32. No recent known recurrent PAF. Continue metoprolol XL 25 mg daily. Continue Xarelto for anticoagulation. Cardiology follow-up 6 months, sooner if needed. (2) HTN (hypertension): Code(s): I10 - Essential (primary) hypertension Category: Medical Qualifiers: Hypertension type: primary hypertension Qualified Code(s): I10 - Essential (primary) hypertension Plan: Blood pressure goal less than 130/80. Elevated today at 160/100, recheck done by me 164/102. Will have her restart amlodipine at 2.5 mg daily. Continue lisinopril and metoprolol. She has upcoming PCP visit and blood pressure can be rechecked at that time. Amlodipine dose can be further titrated if needed. Will forward this note to her PCP. (3) Preoperative cardiovascular examination: Code(s): Z01.810 - Encounter for preprocedural cardiovascular examination Category: Medical Plan: Preop for cataract surgery this week. She can proceed with low cardiac risk. Continue medications without interruption. Call/consult Cardiology if needed. Plan I discussed with the patient the importance of continuing metoprolol and Xarelto for atrial fibrillation management, emphasizing the need to monitor for any recurrence of symptoms. We reviewed the plan to resume amlodipine at a reduced dose for hypertension control and the importance of follow-up with Dr. Salazar. I confirmed that the patient is cleared for cataract surgery. I advised the patient to maintain mobility and use a walker as needed to prevent falls. Patient Instructions: - Continue taking metoprolol and Xarelto as prescribed. - Resume amlodipine at a reduced dose and follow up with Dr. Salazar. - Use a walker to prevent falls and maintain mobility. Patient was informed and verbally consented to the use of an ambient scribe for clinic note documentation during this visit. Visit time spent on chart review, interview, assessment, orders, documentation. Coding Level of Care Code Est Pt Level 4 (98095) Complex EM visit Add On G2211 Diagnoses Paroxysmal atrial fibrillation I48.0 Primary hypertension I10 Hypertension type: primary hypertension Preoperative cardiovascular examination Z01.810 CPT Codes EKG - CPT: 46358-[id number], Complete ([id number]) Time Spent (min) 28
== END 2024-09-24 13:28 | disposition home or self-care (01) ==
LOC: HO.HCS 12:32
PROVIDERS: PCP Internal Medicine; Visit Provider Nurse Practitioner Family
DX: I48.0 Paroxysmal atrial fibrillation (principal); I10 Essential (primary) hypertension; Z01.810 Encounter for preprocedural cardiovascular examination
CPT/HCPCS: 93010; 99214; G2211

== ENCOUNTER → 2024-09-24 12:32 | Outpatient (BNVA) | payer MEDICARE, SELFPAY | PROVIDERS: PCP Internal Medicine; Visit Provider Nurse Practitioner Family | DX: Z01.810 Encounter for preprocedural cardiovascular examination (principal); I48.0 Paroxysmal atrial fibrillation; I10 Essential (primary) hypertension; I49.1 Atrial premature depolarization | CPT/HCPCS: 93005; 99212 ==

== ENCOUNTER 2024-09-25 13:59 | Outpatient (AMB) | payer MEDICARE, SELFPAY ==
--- OUTSIDE RECORDS SUMMARY | 2023-09-12 06:30 | XMS_ITS ---
Author Organization [facility] Address [address] [facility] [place] [address] Care Team Providers Care Packing Inspector Name Role Phone Ross Moran MD Primary Care Provider Emerson Blandon Unavailable [phone] Allergies Allergen (clinical drug ingredient) Drug/Non Drug [...] 09/12/2023 Encounters Encounter Location Date Provider Diagnosis [facility] [place] [address] [place] [address] 09/12/2023 Emerson Mcbride Plan Of Treatment No Information Progress Notes * Dunia ELLIOTT LDOB:[birth year] (74 yo F)Acc No.[id number]:09/12/2023 Progress Notes Patient: Dunia PERRY Provider: Thien Mcbride DPM :1950 A ge:73 Y S ex:Female Date:09/12/2023 Address:[address] [place] [address], [facility] Pcp:Ross Moran MD Subjective: * Chief Complaints: [...] enies. C ardiovascular: Pacemaker d enies. M PERIPHERAL EQUIPMENT OPERATOR d enies. W PW d enies. C [...] 0 09/12/2023 Generated for Yodit mullen/Sim/Perry on: 09/25/2024 03:00 PM EDT
--- OUTSIDE RECORDS SUMMARY | 2024-05-25 06:00 | XMS_ITS ---
Author Organization [facility] Address 10 [facility] [address] [place] [address] Care Team Providers Care Underwater Welder Name Role Phone CYNTHIA HERNANDEZ Primary Care Provider Simone Bennett Jr REASON FOR VISIT wt loss,early satiety,colitis Encounters Encounter Location Date Provider Diagnosis [facility] [place] [address] [place] [id number] 05/25/2024 Simone Craig Jr Plan Of Treatment Next Appt Details Provider Name:Simone stephens Jr, 09/05/2025 01:35:00 PM, [address] [facility], [address], [place], [address], Progress Notes * ILDA WINTERS LDOB:[birth year] (74 yo F)Acc No.[id number]:05/25/2024 EGD and COL/MAC Patient: Kamille MARTINEZ ILDA Simental Provider: Stephen Craig MD :1950 A ge:74 Y S ex:Female Date:05/25/2024 Address:[address] [place] [address] [address], [id number] Pcp:CYNTHIA HERNANDEZ Subjective: * Chief Complaints: * [...] 05/25/2024 Generated for Yodit mullen/Sim/Perry on: 0 09/25/2024 03:01 PM EDT
--- NOTE | 2024-09-25 14:00 | MHC.OFFVIS ---
Vital Signs 09/25/24 14:04 Height 5 ft 6 in Weight 168 lb BMI 27.1 Pulse 62 Intake Visit Reasons: ct results Intake Note: Patient is seen in office for CT scan results, following for possible colovesical fistula. Pt c/o: here for results, no changes CT:08/29/24 Music Manager Required: No Accompanied by: Self / Same As Patient Allergies diphenhydramine Adverse Reaction (Verified 09/25/24 14:05) Anxiety Medication List - Last Reconciled 09/25/24 by Ryan Anders MD acetaminophen 975 mg PO Q8H PRN cholecalciferol (vitamin D3) 25 mcg PO DAILY cyanocobalamin (vitamin B-12) 1,000 mcg sublingual DAILY folic acid 1 mg PO DAILY linaclotide (Linzess) 145 mcg PO DAILY lisinopril 40 mg PO DAILY metoprolol succinate ER 25 mg PO DAILY omeprazole 40 mg PO DAILY rivaroxaban (Xarelto) 20 mg PO DAILY temazepam 15 mg PO BEDTIME PRN HPI Comments Details: 74-year-old female patient returning following a recent CT abdomen and pelvis to re-evaluate a possible colovesical fistula. Since her last visit she actually feels somewhat improved with a stabilization of her weight. She does have some difficulty with her blood pressure which is occasionally high and has been adjusting her medications. She denies any abdominal pain, nausea or vomiting. She does have constipation but recently started Linzess she feels has improved her symptoms. She denies any vaginal discharge, dysuria, fecaluria or pneumaturia. The CT abdomen and pelvis does not clearly show a fistula. There are diverticular changes but no evidence of an abscess or diverticulitis. Copy of the report was provided to the patient. [facility] Medical History Polycythemia vera Postoperative nausea Osteopenia Hx of Lyme disease GERD (gastroesophageal reflux disease) Paroxysmal atrial fibrillation HTN (hypertension) Persistent atrial fibrillation Surgical History History of total right knee replacement History of esophagogastroduodenoscopy (EGD) Hx of section Hx of hysterectomy Hx of colonoscopy (~08/13/21) Hx of appendectomy Family History Father Cancer Stroke Mother Diabetes Social History Household Members: None Housing: Condominium Are you a primary career education teacher to a significant other at home: Yes ( with Alzheimer's and Parkinson's) Do you presently have visiting nurse or other home services: No Patient Tobacco Use Status: Never used Tobacco e-Cigarette/Vaping Use: Never Used Advance Directives Date on File: 03/11/21 service: No Current occupational status: retired Cognitive needs: Yes (walker) Hearing needs: No Vision needs: Yes (Rx glasses) Review of Systems Const All systems reviewed & are unremarkable except as noted in HPI and below Physical Exam Vital Signs: Last Vital Signs Pulse 62 09/25/24 14:04 BMI result Body Mass Index 27.1 Const General: comfortable Nutritional Appearance: well nourished Orientation/consciousness: patient oriented x3 Limitations: no limitations Resp Effort & Inspection: normal respiratory effort, no audible wheezes, no cough and no respiratory distress GI Inspection: Yes normal to inspection Palpation (GI): Soft to palpation, nontender, no guarding and not rigid Percussion: Yes normal to percussion Auscultation: normal bowel sounds Rectal Exam - Female: deferred Neuro General: patient oriented x3 Extrem General: Yes normal to inspection and Yes no clubbing, cyanosis or edema Assessment & Plan Assessment & Plan (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 Overall she is much improved with no clinical signs or symptoms of a colovaginal fistula. A repeat CT abdomen and pelvis also shows no definite evidence of a fistula at this time. She is awaiting cataract surgery in the next several weeks. I recommended no further intervention regarding the sigmoid colon and recommended continued observation at this time. She should call should symptoms develop in the lower abdomen or if she develops evidence of a colovaginal fistula. She expressed understanding and agrees with the plan. 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
[2024-09-25 14:04] VITALS: PULSE 62; BMI 27.1
--- OUTSIDE RECORDS SUMMARY | 2024-09-25 15:01 | XMS_ITS | Encounter Summary ---
Author Organization [facility] Address [address] [place] [address] Phone Care Team Providers Care Body Artist Name Role Phone Ross Moran MD Primary Care Provider Wil Banks MD Unavailable Hari Stevens MD, EdM Unavailable [phone] Kellie Croft RN Unavailable Kathryn [email or web address] Lynda Mora PA-C Unavailable [phone] Larissa Perez MD Primary Care Provider Encounter Details Date Type Department Care Team (Late st Contact Info) Description 07/19/2023 Procedure Pass BWF Periop 6th floor [address] [place] [address] Social History Tobacco Use Types Packs/Day Years [...] Description 12/10/2024 1:30 PM EDT Office Visit [facility] Orthopedics at [address] [address] Wil Banks MD [address] [address] [email or web address]. GRAY documented as of this encounter Visit Diagnoses Not on filedocumented in this encounter Care Teams Body Artist Relationship Specialty Start Date End Date Ross Moran MD [address] [place] [address] [place] [address] PCP - General Internal Medicine 05/16/23 07/12/24 Larissa Perez MD [address] [place] [address] [place] [address] PCP - General Internal Medicine 07/13/24 Wil Bakns MD [address] [facility] [address] [place] [address] [email or web address] Referring Physician Orthopedic Surgery 07/13/23 Hari Stevens MD, EdM [address] [address] [email or web address] Primary Oncologist Hematology 07/13/23 Kellie Croft RN [address] [place] [address] [email or web address] Registered Nurse 07/13/23 Lynda Mora PA-C [address] [place] [phone] [email or web address] Physician Business Office Specialist Physician Business Office Specialist 07/13/23 documented as of this encounter Additional Source Comments The information contained in this document represents components of the legal health record. It is not the complete legal health record.[facility]
== END 2024-09-25 14:20 | disposition home or self-care (01) ==
LOC: HO.HGS 14:00
PROVIDERS: PCP Internal Medicine; Visit Provider Surgery
DX: N32.1 Vesicointestinal fistula (principal)
CPT/HCPCS: 99213

== ENCOUNTER → 2024-09-25 13:59 | Outpatient (BNVA) | payer MEDICARE, SELFPAY | PROVIDERS: PCP Internal Medicine; Visit Provider Surgery | DX: N32.1 Vesicointestinal fistula (principal) | CPT/HCPCS: 99212 ==

== ENCOUNTER 2024-10-25 14:19 | Outpatient (AMB) | payer MEDICARE, SELFPAY ==
--- OUTSIDE RECORDS SUMMARY | 2023-06-08 06:30 | XMS_ITS ---
Author Organization [facility] Address [address] [place] [address] Care Team Providers Care Sales Attendant Building Materials Name Role Phone Ross Moran MD Primary Care Provider Emerson Blandon Unavailable [phone] Allergies Allergen (clinical drug ingredient) Drug/Non Drug Allergy documented on EMR Reaction Allergy Type Onset Date Status diphenhydramine Diphenhydramine anxiety Drug Allergy Active oxycodone Oxycodone nausea Drug Allergy Active Medications Medication SIG (Take, Route, Frequency, Duration) Notes Start Date End Date Status Gabapentin 400 MG 1 capsule Orally Onc e a day hs; Duration: 30 day(s) Unknown Work Note . . . patient must be cast immobilized and rest with minimal weight-bearing to heal for several weeks Unknown Walking Boot/Pneumatic As directed Wear Daily; Duration: Until further notice 12/27/2016 Unknown Meloxicam 5 MG Orally Once a day Unknown Furosemide 8 MG/ML Orally Once a day Unknown Xarelto 20 MG TAKE 1 TABLET BY EVONNE TH EVERY DAY Oral; Duration: 30 Days Active amLODIPine Besylate 2.5 MG 1 tablet Orally Once a day; Duration: 30 day(s) Active Metoprolol Succinate ER 25 MG TAKE 1 TABLET (25 MG) ORALLY DAILY Oral; Duration: 90 Days Active Omeprazole 20 MG 1 capsule Orally Onc e a day; Duration: 30 day(s) Active Lisinopril 5 MG 0.5 tablet Orally On ce a day; Duration: 30 day(s) Active Prolia Active Magnesium 300 MG 1 capsule with a roberto l Orally Once a day; Duration: 30 day(s) Unknown Social History Tobacco Use: Social History Observation Description Date Details (start date - stop date) Never Smoker NA - NA Tobacco Use/Smoking Question Answer Notes Are you a: nonsmoker Additional Findings: Tobacco Non-User Current no n-smoker Alcohol Screen Question Answer Notes Did you have a drink containing alcohol in the p ast year? No Points 0 Interpretation Negative Tobacco use other than smoking: Question Answer Notes Are you an other tobacco user? No Vital Signs Height 5 ft 7 in in 06/08/2023 Weight 216 lbs 06/08/2023 BMI 33.83 kg/m2 06/08/2023 Encounters Encounter Location Date Provider Diagnosis [facility] [address] [place] [address] 06/08/2023 Emerson Mcbride Plan Of Treatment No Information Progress Notes * Dunia ELLIOTT LDOB:[birth year] (74 yo F)Acc No.[id number]:06/08/2023 Progress Notes Patient: Dunia PERRY Provider: Thien Mcbride DPM :1950 A ge:73 Y S ex:Female Date:06/08/2023 Address:[address] [place], [place] [id number] Pcp:Ross Moran MD Subjective: * Chief Complaints: * * ROS: G eneral/Constitutional: Nausea d enies. V omiting d enies. H zoie Thirst d enies. L oss appetite d enies. C hills d enies. F atigue d enies.?Fever d enies. N ight Sweats d enies. U nexplained weight loss d enies. U nexplained weight gain d enies. H EENTM: Dentures d enies. D izziness d enies. G lasses/contacts a dmits. R etinopathy d enies. B lurred/double vision d enies. T MJ?denies. D ischarge/drainage d enies. I mplants d enies. S ore throat d enies. D ental implants d enies. H jeremiah of hearing d enies. D ifficulty chewing/swallowing/speaking d enies. N ose bleeds d enies. S ore mouth d enies. ? R espiratory: On Oxygen d enies. P neumonia/pleurisy d enies.?Bronchitis d enies. E mphysema d enies. C oughing d enies. C ough blood?denies. S hortness of breath d enies. W heezing d enies. C ardiovascular: Pacemaker d enies. M INDUSTRIAL PAINTER d enies. W PW d enies. C HF d enies. H eart attack d enies. S eptal defect d enies. R apid beat d enies. C hest pain d enies. A trial Fib. a dmits. M urmur/Palpitations d enies. G astrointestinal: Hemorrhoids d enies. S tomach/Abdominal pain d enies. D ark blood stool d enies. I rritable bowel d enies. C onstipation d enies. D iarrhea d enies. H ematology: Swelling d enies. C lots d enies. V aricose Veins d enies. B ruising d enies. B leeding problem d enies. G enitourinary: Blood urine d enies. F requent/Painfu/urination/bladder control d enies. K idney stones d enies. I nfection (UTI) d enies. N ephropathy d enies. s ex trans dis (STD) d enies. P rostate d enies. M usculoskeletal: Hammertoes a dmits. B unions a dmits. B ack Pain d enies. M uscle Cramps/ Resting a dmits. M uscle cramps / walking d enies.?Generalized aches and pains a dmits. W eakness d enies. I nteg.: Bain d enies. S cars d enies. C orns/calluses?denies. I ngrown nails d enies. P ainful nails d enies. O pen Sores d enies. R ashes d enies. N eurologic: Difficulty sleeping a dmits. B rain disorder d enies. N umbness d enies. B alance trouble d enies. C onfusion d enies. F ainting/blackouts d enies. T ingling d enies. T remors d enies. 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 * Surgical History: h ysterectomy 2009, vascular surgery 1999, xrays L ap/lat/lo 07/05/19, appendectomy 1976, pcls - twins 1978. * Family History: M other: , foot problems, diagnosed with Family history of arthritis, Diabetic - NIDDM, Unspecified essential hypertension. F ather: , diagnosed with Unspecified essential hypertension, Other malignant neoplasm of unspecified site. * Social History: T obacco Use: T obacco Use/Smoking A re you a: n onsmoker A dditional Findings: Tobacco Non-User C urrent non-smoker Tobacco use other than smoking A re you an other tobacco user? N o D rugs/Alcohol: D rugs H ave you used drugs other than those for medical reasons in the past 12 months? N o Alcohol Screen D id you have a drink containing alcohol in the past year? N o P oints 0 I nterpretation N egative M iscellaneous: C affeine: yes, 1-2 cups per day. Children: yes, 3. Marital status: . 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 * Medications: T aking Prolia , Taking Metoprolol Succinate ER 25 MG Tablet Extended Release 24 Hour TAKE 1 TABLET (25 MG) ORALLY DAILY Oral , Taking amLODIPine Besylate 2.5 MG Tablet 1 tablet Orally Once a day , Taking Xarelto 20 MG Tablet TAKE 1 TABLET BY MOUTH EVERY DAY Oral , Taking Lisinopril 5 MG Tablet 0.5 tablet Orally Once a day , Taking Omeprazole 20 MG Capsule Delayed Release 1 capsule Orally Once a day , Unknown Furosemide 8 MG/ML Solution Orally Once a day , Unknown Meloxicam 5 MG Capsule Orally Once a day , Unknown Walking Boot/Pneumatic As directed Wear Daily , Unknown Work Note . . . . patient must be cast immobilized and rest with minimal weight- bearing to heal for several weeks , Unknown Gabapentin 400 MG Capsule 1 capsule Orally Once a day hs , Unknown Magnesium 300 MG Capsule 1 capsule with a meal Orally Once a day * Allergies: D iphenhydramine: anxiety, Oxycodone: nausea. Objective: * Vitals: H t: 5 ft 7 in, Wt:216, BMI:33.83, Shoe size: 9-9.5, Ht-cm: 170.18 cm, Wt-k.98 kg. Assessment: Plan: * Treatment: * Images: * The named appointment provid er may or may not be the originator of this progress note, and it is not deemed complete until electronically signed by the appointment provider. Sign off status: Pending * Provider: Thien Mcbride DPM Date: 0 06/08/2023 Generated for Yodit mullen/Sim/Perry on: 0 10/25/2024 06:05 PM EDT
--- OUTSIDE RECORDS SUMMARY | 2023-09-12 06:30 | XMS_ITS ---
Author Organization [facility] Address [address] [facility] [place] [address] Care Team Providers Care Procurement Analyst Name Role Phone Ross Moran MD Primary Care Provider Emerson Blandon Unavailable [phone] Allergies Allergen (clinical drug ingredient) Drug/Non Drug [...] 09/12/2023 Encounters Encounter Location Date Provider Diagnosis [facility] [place] [address] [place] [address] 09/12/2023 Emerson Mcbride Plan Of Treatment No Information Progress Notes * Dunia ELLIOTT LDOB:[birth year] (74 yo F)Acc No.[id number]:09/12/2023 Progress Notes Patient: Dunia PERRY Provider: Thien Mcbride DPM :1950 A ge:73 Y S ex:Female Date:09/12/2023 Address:[address] [place] [address], [facility] Pcp:Ross Moran MD Subjective: * Chief Complaints: [...] enies. C ardiovascular: Pacemaker d enies. M HOT ROLL INSPECTOR d enies. W PW d enies. C [...] 0 09/12/2023 Generated for Yodit mullen/Sim/Perry on: 10/25/2024 06:04 PM EDT
--- OUTSIDE RECORDS SUMMARY | 2024-04-09 09:15 | XMS_ITS ---
Author Organization [facility] Address [address] [place] [address] Care Team Providers Care Boom Man Name Role Phone CYNTHIA HERNANDEZ Primary Care Provider Simone Bennett Jr [phone] REASON FOR VISIT rectal bleed Encounters Encounter Location Date Provider Diagnosis [facility] [address] [facility] [address] [place] [address] 04/09/2024 Simone Craig Jr Plan Of Treatment Next Appt Details Provider Name:Simone stephens Jr, 09/05/2025 01:35:00 PM, [address] [facility], [address], [place], [address], Progress Notes * SHEA WINTERSRICIA LDOB:[birth year] (74 yo F)Acc No.[id number]:04/09/2024 Progress Notes Patient: ILDA PERRY Provider: Stephen Craig MD :1950 A ge:74 Y S ex:Female Date:04/09/2024 Address:[address] [place] [address] [address], [place] Pcp:CYNTHIA HERNANDEZ Subjective: * Chief Complaints: * [...] 0 04/09/2024 Generated for Yodit mullen/Sim/Perry on: 0 10/25/2024 06:05 PM EDT
--- OUTSIDE RECORDS SUMMARY | 2024-05-16 10:00 | XMS_ITS ---
Author Organization [facility] Address [address] [place] [address] Care Team Providers Care Service Line Coordinator Name Role Phone CYNTHIA HERNANDEZ Primary Care Provider Simone Bennett Jr REASON FOR VISIT nausea/vomiting, anorexia Encounters Encounter Location Date Provider Diagnosis [facility] [address] [place] [phone] 05/16/2024 Simone Craig Jr Plan Of Treatment Next Appt Details Provider Name:Simone stephens Jr, 09/05/2025 01:35:00 PM, [address], [address], [place], [address], Progress Notes * ILDA WINTERS LDOB:[birth year] (74 yo F)Acc No.[id number]:05/16/2024 EGD/MAC Patient: SHEA PERRYTYSHAWN Simental Provider: Stephen Craig MD :1950 A ge:74 Y S ex:Female Date:05/16/2024 Address:[address] [place] [address] [address], [id number] Pcp:CYNTHIA HERNANDEZ Subjective: * Chief Complaints: * [...] 0 05/16/2024 Generated for Yodit mullen/Sim/Perry on: 0 10/25/2024 06:05 PM EDT
--- OUTSIDE RECORDS SUMMARY | 2024-05-25 06:00 | XMS_ITS ---
Author Organization [facility] Address 10 [facility] [address] [place] [address] Care Team Providers Care Hand Meat Salter Name Role Phone CYNTHIA HERNANDEZ Primary Care Provider Simone Bennett Jr [phone] REASON FOR VISIT wt loss,early satiety,colitis Encounters Encounter Location Date Provider Diagnosis [facility] [place] [address] [place] [id number] 05/25/2024 Simone Craig Jr Plan Of Treatment Next Appt Details Provider Name:Simone stephens Jr, 09/05/2025 01:35:00 PM, [address] [facility], [address], [place], [address], Progress Notes * ILDA WINTERS LDOB:[birth year] (74 yo F)Acc No.[id number]:05/25/2024 EGD and COL/MAC Patient: Kamille MARTINEZ ILDA Simental Provider: Stephen Craig MD :1950 A ge:74 Y S ex:Female Date:05/25/2024 Address:[address] [place] [address] [address], [id number] Pcp:CYNTHIA HERNANDEZ Subjective: * Chief Complaints: * [...] 0 05/25/2024 Generated for Yodit mullen/Sim/Perry on: 0 10/25/2024 06:05 PM EDT
--- NOTE | 2024-10-25 14:26 | MHC.PC.OV ---
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 Required: No Is last menstrual period known: No Post menopausal: No Patient : No Allergies diphenhydramine Adverse Reaction (Verified 10/25/24 14:27) Anxiety Tobacco use date assessed: 10/25/24 Fall risk assessment: 2 + Falls in past year Last assessed Fall Risk: 10/25/24 Dental Screening Dental Screen Date: 10/25/24 Did you have a dental visit in the last 12 months?: No Did you have a dental problem in the last 6 months where you did not have access to dental care?: No Was dental information given to patient?: Patient has dentist HPI HPI Comments History of Present Illness Details The patient is a 74 year old female with a past medical history of p. afib, htn, hyperlipidemia, OA s/p RTK, polycythemia vera, GERD anxiety, insomnia presenting for follow up Recent left cataract. She has a dilated eye exam scheduled Oct GI: Doing better. Appetite has come back. She has been able to gain some weight. Follows with GI. Was following with surgery. Recent CT abd/pelvis without fistula evidence. Hospital[place]09[place]05[place]21/[place] [facility] She presenting with abdominal pain, N/V/weakness and weight loss. Hospitalized for acute recurrent diverticulitis with colovesicular fistula and urinary tract infection complicated by moderate protein calorie malnutrition and weight loss. Was treated with IV Zosyn. Cultures were negative. Was seen by Gastroenterology and General surgery and Urology. Conversation was had regarding trial of conservative care with antibiotics versus surgical approach. Patient would prefer conservative care especially given very small size of potential fistula without fecaluria. She was able to tolerate diet and participate with physical therapy who recommended STR placement. Patient will be discharged on 2 weeks of Augmentin and follow up with Gastroenterology as EGD showed diodenal ulcers and started on IV PPI then switched to PO Omeprazole which she will continue on discharge and follow with GI to repeat study as scheduled. For acute hypokalemia and hypomagnesemia received replacement. CV: follows with cardiology. On amlodipine, lisinopril, toprol, xarelto. She underwent a myocardial perfusion imaging prior to needing a knee surgery in July 2023 which was within normal limits. Denies chest pain, exertional dyspnea Heme/Onc: thrombocytosis, polycythemia vera, was on hydroxyurea therapy previously but monitoring labs for the time being Neuro: Patient was experiencing neuralgia, neuritis from her left chest through the torso upper extremities and her lower extremities. She notes some interval improvement. 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 CT abd with DDD lumbar spine Insomnia stable on prn temazepam ROS see HPI PHYSICAL EXAM: GENERAL: Alert and oriented x 3. NAD EYES: EOMI. Anicteric. HENT: Moist mucous membranes. No scleral icterus. No cervical lymphadenopathy. LUNGS: Clear to auscultation bilaterally. CARDIOVASCULAR: Regular rate and rhythm. ABDOMEN: Soft, non-tender +bs EXTREMITIES: No edema. Non-tender. SKIN: No rashes or lesions. Warm. NEUROLOGIC: No focal neurological deficits. CN II-XII grossly intact PSYCHIATRIC: Cooperative. Appropriate mood and affect [facility] Medical History Polycythemia vera Postoperative nausea Osteopenia Hx of Lyme disease GERD (gastroesophageal reflux disease) Paroxysmal atrial fibrillation HTN (hypertension) Persistent atrial fibrillation Surgical History History of total right knee replacement History of esophagogastroduodenoscopy (EGD) Hx of section Hx of hysterectomy Hx of colonoscopy (~08/13/21) Hx of appendectomy Family History Father Cancer Stroke Mother Diabetes Social History Household Members: None Housing: Condominium Are you a primary customer care agent to a significant other at home: Yes ( with Alzheimer's and Parkinson's) Do you presently have visiting nurse or other home services: No Patient Tobacco Use Status: Never used Tobacco e-Cigarette/Vaping Use: Never Used Second Hand Smoke Exposure: No Advance Directives Date on File: 03/11/21 service: No Current occupational status: retired Current occupational exposures/hazards: No Cognitive needs: Yes (walker) Hearing needs: No Vision needs: Yes (Rx glasses) Questionnaire Thrive Questionnaire Date Thrive assessed: 10/12/24 I am a: Patient What is your living situation today?: I have a steady place to live Within the past 12 months, did the food you bought not last and you didn't have the money to get more?: Never true Within the past 12 months, did you worry whether your food would run out before you got money to buy more?: Never true Do you have trouble paying for medicines?: No Do you have trouble getting transportation to medical appointments?: No Do you have trouble paying your heating and electricity bill?: No Do you have trouble taking care of your child, family member or friend?: No Do you have trouble with day-to-day activities such as bathing, preparing meals, shopping, managing finances, etc.?: No Are you currently unemployed and looking for a job?: No Are you interested in more education?: No Please select the resources that you would like help with: None Currently or been in a relationship where the following occur: No concerns reported THRIVE Score: 0 KALANI-7 AMB Questionnaire KALANI-7 Date KALANI - 7 assessed: 08/03/24 Source: Developed by Drs. Hari Knight, Evelyn Ramirez, Best Blackwell and colleagues, with an educational carol from [employer]. Physical exam (Primary Care) Vital Signs: Last Vital Signs Temp 97.8 F 10/25/24 14:31 Pulse 85 10/25/24 14:31 Resp 16 10/25/24 14:31 BP 115/75 10/25/24 14:31 Pulse Ox 99 10/25/24 14:31 Oxygen Delivery Method Room Air 10/25/24 14:31 BMI result Body Mass Index 23.9 Tobacco/Smoking Status: Tobacco use Status Tobacco use date assessed 10/25/24 10/25/24 14:34 Patient Tobacco Use Status Never used Tobacco 10/25/24 14:34 e-Cigarette/Vaping Use Never Used 10/25/24 14:34 Thrive Assessment: Date of Thrive Assessment Date Thrive assessed 10/12/24 10/25/24 14:34 Currently or been in a relationship where the following occur: No concerns reported Coding Level of Care Code Est Pt Level 4 (66825) Diagnoses Primary hypertension I10 Hypertension type: primary hypertension Paroxysmal atrial fibrillation I48.0 Recurrent UTI N39.0 MPN (myeloproliferative neoplasm) D47.1 Neuralgia and neuritis M79.2 Assessment & Plan Assessment & Plan (1) HTN (hypertension): Code(s): I10 - Essential (primary) hypertension Category: Medical Qualifiers: Hypertension type: primary hypertension Qualified Code(s): I10 - Essential (primary) hypertension (2) Paroxysmal atrial fibrillation: Code(s): I48.0 - Paroxysmal atrial fibrillation Category: Medical (3) Recurrent UTI: Code(s): N39.0 - Urinary tract infection, site not specified Category: Medical (4) MPN (myeloproliferative neoplasm): Code(s): D47.1 - Chronic myeloproliferative disease Category: Medical (5) Neuralgia and neuritis: Code(s): M79.2 - Neuralgia and neuritis, unspecified Category: Medical Plan 74 y/o for follow up Interval history reviewed No further need for surgery-return as needed She will continue follow up with GI. She is doing better, has gained weight HTN adequately controlled on current medications Afib stable on xarelto Medications: Refilled temazepam 15 mg PO BEDTIME PRN 30 caps 0RF Sleep
[2024-10-25 14:31] VITALS: BP 115/75; PULSE 85; RESP 16; TEMP 36.6; O2SAT 99; BMI 23.9
--- OUTSIDE RECORDS SUMMARY | 2024-10-25 18:05 | XMS_ITS | Encounter Summary ---
Author Organization [facility] Address [address] [place] [address] Phone Care Team Providers Care Emt/Paramedic Name Role Phone Ross Moran MD Primary Care Provider Wil Banks MD Unavailable Hari Stevens MD, EdM Unavailable Kellie Croft RN Unavailable Kathryn [email or web address] Lynda Mora PA-C Unavailable [phone] Larissa Perez MD Primary Care Provider [phone] Encounter Details Date Type Department Care Team (Late st Contact Info) Description 01/17/2024 Transcribe Orders [facility] [address] [place] [address] Hari Stevens MD, EdM [address] [facility] [address] [address] [email or web address] Status post right knee replacement (Primary Dx); Primary osteoarthritis of right knee; Essential thrombocythemia; Generalized pain of knee region Social History Tobacco Use Types Packs/Day Years Used Date Smoking Tobacco: Never Passive Smoke Exposure: Past Smokeless Tobacco: Never Comments:Raised in household both parents smoked Alcohol Use Standard Drinks/Week Comments Not Currently 0 (1 standard drink = 0.6 oz pure alcohol) If out to dinner may have a glass of wine so very occ. Child or Family Care Answer Date Record ed Do you have problems with on e of the following making it difficult for you to work, study, or receive health care? No 08/09/2023 Education Answer Date Recorded Are you interested in more education? Not on kareen e 05/16/2023 Are you concerned about learning? Not on file 05/16/2023 No 05/16/2023 No 05/16/2023 Food Answer Date Recorded Within the past 6 months we worried whether our food would run out before we got money to buy more. Never True 08/09/2023 Within the past 6 months the food we bought just didn't last and we didn't have enough money to get more. Never True Residential Stability Answer Date Recor ded What is your housing situation today? I have malaika pan 08/09/2023 How many times have you move d in the past 12 months? Zero (I did not move) 08/09/2023 Paying for Meds Answer Date Recorded Do you have trouble paying for medicines? No 08/09/2023 Paying Utility Bills Answer Date Record ed Do you have trouble paying your heating or elect ricity bill? Yes 08/09/2023 Transportation Answer Date Recorded Has the lack of transportati on kept you from medical appointments or from getting medications? No 08/09/2023 Digital Access Answer Date Recorded No 05/16/2023 [...] Description 12/10/2024 1:30 PM EDT Office Visit [facility] [place] [address] [place] [address] Wil Banks MD [address] [place] [address] [email or web address] documented as of this encounter Results * (ABNORMAL) Comprehensive metabolic panel (01/17/2024 3:03 PM EST) SODIUM 133 133 - 146 mmol/L [facility] POTASSIUM 3.0(L) 3.3 - 5.1 mmol/L [facility] CHLORIDE 94(L) 96 - 108 mmol/L [facility] CO2 21 21 - 35 mmol/L [facility] BUN 17 6 - 19 mg/dL [facility] CREATININE 1.10 0.5 - 1.5 mg/dL [facility] GLUCOSE 131(H) 70 - 99 mg/dL [facility] ALBUMIN 3.8(L) 3.9 - 4.8 g/dL [facility] TOTAL PROTEIN 7.5 6.5 - 8.0 g/dL [facility] CALCIUM 10.1 8.4 - 10.3 mg/dL [facility] ALKALINE PHOSPHATASE 78 39 - 117 U/L [facility] TOTAL BILIRUBIN 1.2 0.0 - 1.2 mg/dL [facility] AST 17 0 - 37 U/L [facility] ALT 9 0 - 40 U/L [facility] GLOBULIN 3.7 1 - 4.8 g/dL [facility] EGFR 54(L) >59 mL/min/1.7 3m2 [facility] Comment:Estimated glomerular filtration rate calculated using the CKD-EPI refit equation. ANION GAP 21(H) 10 - 20 mmol/L [facility] Blood 01/17/2024 3:03 PM EST 01/17/2024 3:06 PM EST us Hari Stevens MD, EdM LAB BLOOD ORDERABLES Fabiana l Result [facility] [address] [place] [address] documented in this encounter Visit Diagnoses Diagnosis Status post right knee replacement- Primary Primary osteoarthritis of right knee Essential thrombocythemia Generalized pain of knee region documented in this encounter Care Teams Emt/Paramedic Relationship Specialty Start Date End Date Ross Moran MD [address] [place] [address] [place] [address] PCP - General Internal Medicine 05/16/23 07/12/24 Larissa Perez MD [address] [place] [address] [place] [address] PCP - General Internal Medicine 07/13/24 Wil Banks MD [address] [facility] [address] [place] [address] [email or web address] Referring Physician Orthopedic Surgery 07/13/23 Hari Stevens MD, EdM [address] [facility] [address] [place] [address] [place] [address] [email or web address] Primary Oncologist Hematology 07/13/23 Kellie Croft, RN [address] [place] [address] [email or web address] Registered Nurse 07/13/23 Lynda Mora PA-C [address] [place] [address] [email or web address] Physician Slope Tender Physician Slope Tender 07/13/23 documented as of this encounter Additional Source Comments The information contained in this document represents components of the legal health record. It is not the complete legal health record.[facility]
--- OUTSIDE RECORDS SUMMARY | 2024-10-25 18:05 | XMS_ITS | Encounter Summary ---
Author Organization [facility] Address [address] [facility] [address] [place] [address] Phone Care Team Providers Care Logistics/Shipper Name Role Phone Ross Moran MD Primary Care Provider Wil Banks MD Unavailable Hari Stevens MD, EdM Unavailable [phone] Kellie Croft RN Unavailable Kathryn [email or web address] Lynda Mora PA-C Unavailable [phone] Larissa Perez MD Primary Care Provider [phone] Encounter Details Date Type Department Care Team (Late st Contact Info) Description 12/08/2023 Procedure Pass BWF Periop 6th floor [address] [place] [address] Social History Tobacco Use Types Packs/Day Years [...] Description 12/10/2024 1:30 PM EDT Office Visit [facility] [place] [address] [place] [address] Wil Banks MD [address] [facility] [address] [place] [address] [email or web address] documented as of this encounter Visit Diagnoses Not on filedocumented in this encounter Care Teams Logistics/Shipper Relationship Specialty Start Date End Date Ross Moran MD [address] [place] [address] [place] [address] PCP - General Internal Medicine 05/16/23 07/12/24 Larissa Perez MD [address] [place] [address] [place] [address] PCP - General Internal Medicine 07/13/24 Wil Banks MD [address] [facility] [address] [place] [address] [email or web address] Referring Physician Orthopedic Surgery 07/13/23 Hari Stevens MD, EdM [facility] [place] [address] [address] [email or web address] Primary Oncologist Hematology 07/13/23 Kellie Croft, RN [address] [place] [address] [email or web address] Registered Nurse 07/13/23 Lynda Mora PA-C [address] [place] [address] [email or web address] Physician Tightener Physician Tightener 07/13/23 documented as of this encounter Additional Source Comments The information contained in this document represents components of the legal health record. It is not the complete legal health record.[facility]
--- OUTSIDE RECORDS SUMMARY | 2024-10-25 18:05 | XMS_ITS | Patient Health Record ---
Author Organization [facility] Address [address] [place] [address] Care Team Providers Care Terminal Carman Name Role Phone MARY, CYNTHIA Primary Care Provider Simone Bennett Jr Allergies Allergen (clinical drug ingredient) Drug/Non Drug Allergy documented on EMR Reaction Allergy Type Onset Date Status diphenhydramine Benadryl anxiety Drug Allergy A ctive Results Component Value Reference Range Notes Pathology Reviewed date:05/24/2024 09:42:51 AM Interpretation: Performing Lab:[facility], [address] [place] [id number] Notes/Report: Reason For Referral No Information Medications Medication SIG (Take, Route, Frequency, Duration) Notes Start Date End Date Status Xarelto 20 MG TAKE 1 TABLET BY EVONNE TH EVERY DAY Oral for 30 Active Hydroxyurea 500 MG TAKE 1 CAPSULE DAILY Oral for 90 Days Active Vitamin D Not-Taking amLODIPine Besylate 5 MG TAKE 1 TABLET B Y MOUTH EVERY DAY Oral for 30 Not-Taking Folic Acid 1 MG 1 tablet Orally Once a day Active Linzess 145 MCG 1 capsule at least 3 0 minutes before the first meal of the day on an empty stomach Orally Once a day Active Lisinopril 40 MG TAKE 1 TABLET BY EVONNE TH EVERY DAY Oral for 30 Active Omeprazole 20 MG 1 capsule Orally Onc e a day for 30 day(s) Active Metoprolol Succinate ER 25 MG Oral for 90 Active Immunizations Vaccine Route Administration Date Status Comme nts Influenza Unknown 10/15/2017 Administered Influenza Unknown 02/14/2021 Administered Influenza Unknown 12/06/2023 Administered Social History Alcohol Screen Question Answer Notes Did you have a drink containing alcohol in the p ast year? No Points 0 Interpretation Negative Problems Problem Type SNOMED Code ICD Code Onset Dates Problem Status W/U Status Risk Notes Problem 16563846 Rectal bleeding (K62.5) Active confirmed Problem Gastrointestinal tract problem (568626215) Abn findings-GI tract (R93.3) Active confirmed Problem 215207565 Gastroesophageal reflux disease, unspecified whether esophagitis present (K21.9) Active confirmed Vital Signs Heart Rate 60 /min 08/30/2024 Temperature 97.1 degrees Fahrenheit 04/23/2024 Blood pressure diastolic 01 mm Hg 08/30/2024 Height 67 in 08/30/2024 Blood pressure systolic 001 mm Hg 08/30/2024 Weight 152.6 lbs 08/30/2024 BMI 23.9 kg/m2 08/30/2024 Procedures Procedure Date Ordered Date Performed Result Body Sit e UPPER GI ENDOSCOPY 04/23/2024 N/A COLONOSCOPY 04/23/2024 N/A Encounters Encounter Location Date Provider Diagnosis [facility] Outpatient [address] [place] [id number] 05/16/2024 Simone Craig Jr [facility] [address] [place] [phone] 04/23/2024 Simone Craig Jr Weight loss R63.4 ; Colitis K52.9 and Early satiety R68.81 [facility] [address] [place] [phone] 08/30/2024 Simone Craig Jr Gastroesophageal reflux disease, unspecified whether esophagitis present K21.9 and Abn findings-GI tract R93.3 [facility] [address] [place] [phone] 03/30/2024 Simnoe Craig Jr [facility] [address] [place] [phone] 04/09/2024 Simone Craig Jr [facility] [address] [place] [phone] 05/23/2024 Simone Craig Jr [facility] [address] [place] [phone] 05/23/2024 Simone Craig Jr [facility] [address] [place] [phone] 05/24/2024 Simone Craig Jr [facility] [address] [place] [phone] 06/08/2024 Simone Craig Jr [facility] [address] [place] [phone] 07/19/2024 Simone Craig Jr Assessments Encounter Date Diagnosis [...] to proceed. Today's visit was 40 minutes 08/30/2024 Abn findings-GI tract (ICD-10 - R93.3) We discussed gastroesophageal reflux disease today. We discussed duodenal ulcer disease. She is currently doing well on omeprazole 20 mg daily and will continue this. She has no classic symptoms of a colovesicular fistula, and her CT scan results were reviewed in detail today. She is following up with Dr. Anders.. Given her present clinical course, observation may be the best approach at this time. We discussed this in detail today. She is not anxious to have any interventional surgical procedure. Today's visit was 40 minutes. 08/30/2024 Gastroesophageal reflux disease, unspecified whether esophagitis present (ICD-10 - K21.9) We discussed gastroesophageal reflux disease today. We discussed duodenal ulcer disease. She is currently doing well on omeprazole 20 mg daily and will continue this. She has no classic symptoms of a colovesicular fistula, and her CT scan results were reviewed in detail today. She is following up with Dr. Anders.. Given her present clinical course, observation may be the best approach at this time. We discussed this in detail today. She is not anxious to have any interventional surgical procedure. Today's visit was 40 minutes. 04/23/2024 Early satiety (ICD-10 - R68.81) Satiety [...] COLONOSCOPY 07/30/2021 Next Appt Details Provider Name:Simone Ricarda stephens , 09/05/2025 01:35:00 PM, [address] [facility], [address], [place], [address], Insurance Providers Payer Name Payer Address Payer Phone Subscriber Number Group Number Insured Name Patient Relationship to Insured Coverage Start Date Coverage End Date MEDICARE OF [place] [address] [place] [id number] ILDA WINTERS Self - patient is the insured [employer] ATT[employer] CLAIMS [address] [place] [phone] [id number] ILDA WINTERS Self - patient is the insured Medical (General) History Medical History History ICD Code hypertension GERD Colonoscopy 08/05, diverticulosis, resolv ing colitis uterine cancer Lyme disease osteopenia hx of Afib Colonoscopy 710/14, wing, fo gus area of resolving infectious colitis, ten-year followup polycythemia vera EGD 06/08, superficial small duodenal ulc ers, no H. pylori, PPI therapy Surgical History Surgery Date(Month/Year) right knee replacement vaginoplasty vein ligation X 2 appendectomy section hysterectomy Hospitalization History Reason Date(Month/Year)
--- OUTSIDE RECORDS SUMMARY | 2024-10-25 18:05 | XMS_ITS | Clinical Summary ---
Author Organization Located Within [facility] Address [address] [place] [address] Phone Care Team Providers Care Zipper Setter Chainstitch Name Role Phone Wil Banks MD Unavailable Hari Stevens MD, EdM Unavailable [phone] Kellie Croft RN Unavailable Kathryn [email or web address] Lynda Mora PA-C Unavailable Larissa Perez MD Primary Care Provider Allergies Active Allergy Reactions Criticality Noted Date Comments Diphenhydramine Anxiety Low 06/20/2023 Feels wound up tight, wakes her up Oxycodone Nausea Only 07/06/2023 All opioids-reports dizziness,N/V can tolerate tramadol and extra strength tylenol Medications lisinopril (PRINIVIL,ZESTR IL) 40 MG tablet Take 1 tablet by mouth every morning. 04/20/2023 Active metoprolol succinate (TOPROL-XL) 25 MG 24 hr tablet TAKE 1 TABLET (25 MG) ORALLY DAILY 03/29/2023 Active amLODIPine (NORVASC) 10 MG tablet Take 1 tablet by mouth every morning. 04/20/2023 Active XARELTO 20 mg Tab Take 1 tablet by mouth every morning. 04/27/2023 Active omeprazole (PRILOSEC) 20 MG capsule Take 1 capsule by mouth daily as needed. 04/20/2023 Active temazepam (RESTORIL) 15 mg capsule take 1 capsule by mouth every day at bedtime as needed 03/25/2023 Active hydroxyurea (HYDREA) 500 mg capsule Take 500 mg by mouth daily. 08/24/2023 Active sertraline HCl (SERTRALINE, ZOLOFT,) 100 MG tablet Take 50 mg by mouth daily. 10/03/2023 Active Active Problems Problem Noted Date Diagnosed Date Status post right knee replacement 12/08/2023 Hyperlipidemia 07/06/2023 Hypertensive disorder 07/06/2023 Paroxysmal atrial fibrillation 07/06/2023 Gastroesophageal reflux disease 07/06/2023 Post-operative nausea and vomiting 07/06/2023 Motion sickness 07/06/2023 Encounters Date Type Department Care Team Description 07/26/2024 Documentation [facility] [place] [facility] [address] [place] [address] Kellie Croft, RN ACO Care Coordination from Last 3 Months Family History Medical History Relation Comments Hypertension Father Diabetes Mother Anesthesia problems Neg Hx Relation Status Comments Father Mother Social History Tobacco Use Types Packs/Day Years [...] your housing situation today? I have malaika sing 08/09/2023 How many times have you move [...] Orientation Straight 05/16/2023 2: 35 PM EDT Last Filed Vital Signs Vital Sign Reading Time Taken Comments Blood Pressure 150/99 12/09/2023 7:50 AM EDT Pulse 68 12/08/2023 8:30 PM EDT Temperature 36.7 C (98 F) 01/09/2024 1:17 PM EST Respiratory Rate 16 12/09/2023 2:01 AM EDT Oxygen Saturation 96% 12/09/2023 7:50 AM EDT Inhaled Oxygen Concentration - - Weight 95.3 kg (210 lb) 01/09/2024 1:17 PM EST Height 170.2 cm (5' 7 ) 12/08/2023 11:16 AM EDT Body Mass Index 32.89 12/08/2023 11:16 AM EDT Plan of Treatment Upcoming Encounters Date Type Department Care Team (Late st Contact Info) Description 12/10/2024 1:30 PM EDT Office Visit [facility] [place] [address] [place] [address] Wil Banks MD [address] [place] [address] [email or web address] [facility] Health Maintenance Due Date Last Done Comments Adult Td,Tdap Booster 1952 LIPID PANEL 1952 DEPRESSION SCREENING 1964 HEPATITIS C SCREENING 01/25/1970 MAMMOGRAM 1992 COLOGUARD 01/25/1997 COLONOSCOPY 01/25/1997 COLORECTAL CANCER SCREENING 01/25/1997 FIT TEST 01/25/1997 FOBT 01/25/1997 SIGMOIDOSCOPY 01/25/1997 VIRTUAL COLONOSCOPY 01/25/1997 PNEUMOCOCCAL VACCINES (50+ years) (1 of 1 - PCV) 01/25/2002 ZOSTER VACCINES (1 of 2) 01/25/2002 RSV VACCINE (1 - Risk 60-74 years 1-dose series) 2012 OSTEOPOROSIS SCREENING INITIAL (ONE-TIME) 01/25/2017 BLOOD PRESSURE 02/25/2024 08/25/2023 INFLUENZA VACCINE (#1) 2024 COVID-19 VACCINE ( - season) 2024 CREATININE LEVEL 02/19/2025 02/20/2024, 04/2023, 11/16/2023, Additional history exists POTASSIUM LEVEL 02/19/2025 02/20/2024, 12/0 04/2023, 11/16/2023, Additional history exists SMOKING STATUS SCREENING (Once After 26 Yrs) Completed 01/09/2024 HEPATITIS A VACCINES Aged Out No long er eligible based on patient's age to complete this topic HIB VACCINES Aged Out No longer eligi ble based on patient's age to complete this topic MENINGOCOCCAL VACCINES (ACWY) Aged Out No longer eligible based on patient's age to complete this topic MENINGOCOCCAL VACCINES (B) Aged Out N o longer eligible based on patient's age to complete this topic Medical Devices Implanted Type Area Forestry Fire Aid Device Identifier Shelf Expiration Date Model / Serial / Lot Cement Bone 40g Simplex P Demineralized Matrix Radiopaque Void Filler Full Dose Bx/10ea - [id number] Implanted:Qty: 2 on 12/08/2023 by Wil Banks MD at [facility] STANDARD Right: Knee [employer] 12/14/2025 [id number] / / [id number] Knee Implant Component Size 6 Femoral Persona [place] Cement Cruciate Retaining Standard Right - [id number] Implanted:Qty: 1 on 12/08/2023 by Wil Banks MD at [facility] Right: Knee [employer] 08/21/2033 [id number] / / [id number] Knee Implant 5deg Component Tibial Persona Titanium Stemmed Cemented Rt Size D - [id number] Implanted:Qty: 1 on 12/08/2023 by Wil Banks MD at [facility] Right: Knee [employer] 03/30/2033 [id number] / / [id number] Knee Insert 10mm Component Surface Persona Polyethylene Cruciate Retaining Fixed Conventional Right [id number] - [id number] Implanted:Qty: 1 on 12/08/2023 by Wil Banks MD at [facility] Right: Knee [employer] 06/06/2028 [id number] / / [id number] Procedures Procedure Name Priority Date/Time Associated Diagnosis Comments COMPREHENSIVE METABOLIC PANEL Routine 02/20/2024 4:10 PM EST Polycythemia from Last 3 Months or Most Recently Relevant to Health Maintenance Results * (ABNORMAL) Comprehensive metabolic panel (02/20/2024 4:10 PM EST) SODIUM 133 133 - 146 mmol/L [facility] POTASSIUM 3.2(L) 3.3 - 5.1 mmol/L [facility] CHLORIDE 96 96 - 108 mmol/L [facility] CO2 21 21 - 35 mmol/L [facility] BUN 14 6 - 19 mg/dL [facility] CREATININE 0.90 0.5 - 1.5 mg/dL [facility] GLUCOSE 112(H) 70 - 99 mg/dL [facility] ALBUMIN 3.6(L) 3.9 - 4.8 g/dL [facility] TOTAL PROTEIN 6.9 6.5 - 8.0 g/dL [facility] CALCIUM 10.4(H) 8.4 - 10.3 mg/dL [facility] ALKALINE PHOSPHATASE 62 39 - 117 U/L [facility] TOTAL BILIRUBIN 1.2 0.0 - 1.2 mg/dL [facility] AST 20 0 - 37 U/L [facility] ALT 9 0 - 40 U/L [facility] GLOBULIN 3.3 1 - 4.8 g/dL [facility] EGFR 68 >59 mL/min/1.7 3m2 [facility] Comment:Estimated glomerular filtration rate calculated using the CKD-EPI refit equation. ANION GAP 19 10 - 20 mmol/L [facility] Blood 02/20/2024 4:10 PM EST 02/20/2024 4:13 PM EST us Hari Stevens MD, EdM LAB BLOOD ORDERABLES Fabiana spencer Result [facility] [address], [place] [phone] from Last 3 Months or Most Recently Relevant to Health Maintenance Insurance [address] [place] [address] [facility] MEDEX SUPPLEMENT MEDICARE PART A & B [place] [employer] MEDEX SUPPLEMENT MEDICARE PART A & B [employer] MEDEX SUPPLEMENT MEDICARE PART A & B Member Subscriber Plan / Payer ( fective 2017-Present) Name:Dunia Elliott Member ID:[id number] Relation to Subscriber:Self Name:Dunia Elloitt Subscriber ID:[id number] Payer ID:[id number] Group ID:Not on file Type:Medicare Address: [employer] [address] [place] [address] MEDEX SUPPLEMENT MEDICARE PART A & B [address] [place] [address] [place] [employer] MEDEX SUPPLEMENT MEDICARE PART A & B [address] [place] [id number] [facility] MEDEX SUPPLEMENT MEDICARE PART A & B Member Subscriber Plan / Payer (Ef fective 2017-Present) Name:Dunia Elliott Member ID:[id number] Relation to Subscriber:Self Name:Dunia Elliott Subscriber ID:[id number] Payer ID:[id number] Group ID:Not on file Type:Medicare Address: [facility] [employer] [facility] [address] [place] [address] [address] [place] [address] [address] [place] [address] [address] [place] [address] Advance Directives For more information, please contact: [phone] (9AM - 5PM [facility], Tuesday-Tuesday) * Full Code (Latest Code Status on File) Date Activated Date Inactivated Comments 12/08/2023 5:03 PM Question Answer Comments Code Status Confirmed With: Patient Care Teams Zipper Setter Chainstitch Relationship Specialty Start Date End Date Larissa Perez MD [address] [place] [address] [place] [address] PCP - General Internal Medicine 07/13/24 Wil Banks MD [address] [facility] [address] [place] [address] [email or web address] Referring Physician Orthopedic Surgery 07/13/23 Hari Stevens MD, EdM [facility] Espinoza Andrews [address] [address] [email or web address] Primary Oncologist Hematology 07/13/23 Kellie Croft, RN [address] [place] [address] Arielle@[email or web address] Registered Nurse 07/13/23 Lynda Mora PA-C [address] [address] [email or web address] Physician Document Management Analyst Physician Document Management Analyst 07/13/23 Additional Source Comments The information contained in this document represents components of the legal health record. It is not the complete legal health record.Located Within [facility]
--- OUTSIDE RECORDS SUMMARY | 2024-10-25 18:05 | XMS_ITS | Encounter Summary ---
Author Organization [facility] Address [address] [place] [address] Phone Care Team Providers Care Banking Officer Name Role Phone Ross Moran MD Primary Care Provider Wil Banks MD Unavailable Hari Stevens MD, EdM Unavailable [phone] Kellie Croft RN Unavailable Kathryn [email or web address] Lynda Mora PA-C Unavailable Larissa Perez MD Primary Care Provider Encounter Details Date Type Department Care Team (Late st Contact Info) Description 07/19/2023 Procedure Pass BWF Periop 6th floor [address] [place] [address] Social History Tobacco Use Types Packs/Day Years [...] Description 12/10/2024 1:30 PM EDT Office Visit [facility] Orthopedics at [address] [address] Wil Banks MD [address] [address] [email or web address]. [place] documented as of this encounter Visit Diagnoses Not on filedocumented in this encounter Care Teams Banking Officer Relationship Specialty Start Date End Date Ross Moran MD [address] [place] [address] [place] [address] PCP - General Internal Medicine 05/16/23 07/12/24 Larissa Perez MD [address] [place] [address] [place] [address] PCP - General Internal Medicine 07/13/24 Wil Banks MD [address] [facility] [address] [place] [address] [email or web address] Referring Physician Orthopedic Surgery 07/13/23 Hari Stevens MD, EdM [address] [address] [email or web address] Primary Oncologist Hematology 07/13/23 Kellie Croft RN [address] [place] [address] [email or web address] Registered Nurse 07/13/23 Lynda Mora PA-C [address] [place] [phone] [email or web address] Physician Graphite Pan Drier Tender Physician Graphite Pan Drier Tender 07/13/23 documented as of this encounter Additional Source Comments The information contained in this document represents components of the legal health record. It is not the complete legal health record.[facility]
--- OUTSIDE RECORDS SUMMARY | 2024-10-25 18:05 | XMS_ITS | Patient Health Record ---
[facility] Address [address] [place] [address] Care Team Providers Care Nitriles Lab Technician Name Role Phone Ross Moran MD Primary Care Provider Emerson Blandon Unavailable [phone] Allergies Allergen (clinical drug ingredient) Drug/Non Drug [...] Once a day; Duration: 30 day(s) Not-Taking Metoprolol Succinate ER 25 MG TAKE 1 TABLET (25 MG) ORALLY DAILY Oral; Duration: 90 Days Active amLODIPine Besylate 2.5 MG 1 tablet Orally Once a day; Duration: 30 day(s) Active Xarelto 20 MG TAKE 1 TABLET BY EVERY DAY Oral; Duration: 30 Days Active Walking Boot/Pneumatic As directed Wear Daily; Duration: Until further notice 12/27/2016 Not-Taking Work Note . . . patient must be cast immobilized and rest with minimal weight-bearing to heal for several weeks Not-Taking Gabapentin 400 MG 1 capsule Orally Onc e a day hs; Duration: 30 day(s) Not-Taking Lisinopril 5 MG 0.5 [...] Problem Acquired hammer toe of right foot (7817764426882 105) Other hammer toe(s) (acquired), right foot (M20.41) Active confirmed Problem Acquired hammer toe of left foot (1831341862147 103) Other hammer toe(s) (acquired), left foot (M20.42) Active confirmed Plan Of Treatment Pending Test Test Name Order Date X ray : Foot, left 2V 11/06/2014 X ray : Foot, left 3V 12/27/2016 X ray : Foot, left 3V 07/05/2019 X ray : Foot, left 3V 08/09/2019 X ray : Foot, left 3V 09/19/2019 X ray : Foot, right 3V 12/27/2016 [id number] NAIL, 6 OR MORE 12/27/2016 [id number] Plate 04/29/2011 [id number] 06/10/2011 [id number] 07/01/2011 [id number]-XNH 08/02/2011 [id number] SKIN/TISSUE 08/02/2011 [id number] SKIN/TISSUE 07/01/2011 [id number]- Unna Boot 07/05/2019 Insurance Providers Payer Name Payer Address Payer Phone Subscriber Number Group Number Insured Name Patient Relationship to Insured Coverage Start Date Coverage End Date Medicare National Govt Svcs Inc [address] [place] [address] [id number] Dunia Elliott Self - patient is the insured Med[employer] Blue Shield [address] [place] [address] [id number] Dunia Elliott Self - patient is [...]
--- OUTSIDE RECORDS SUMMARY | 2024-10-25 18:06 | XMS_ITS | Encounter Summary ---
Author Organization [facility] Address [address] [place] [address] Phone Care Team Providers Care Perch Machine Inspector Name Role Phone Ross Moran MD Primary Care Provider Wil Banks MD Unavailable Hari Stevens MD, EdM Unavailable [phone] Kellie Croft RN Unavailable Kathryn [email or web address] Lynda Mora PA-C Unavailable [phone] Larissa Perez MD Primary Care Provider [phone] Reason for Visit * Reason Onset Date Comments Dr. Stevens 01/16/2024 Encounter Details Date Type Department Care Team ([facility] st Contact Info) Description 01/16/2024 Telephone [facility] Cancer [place] [facility] [address] 2nd [place] [address] Cherelle Aquino [address] [place] [address] [email or web address] Dr. Stevens Social History Tobacco Use Types Packs/Day Years [...] Description 12/10/2024 1:30 PM EDT Office Visit [facility] Orth[facility] at [place] [address] [place] [address] Wil Banks MD [address] [place] [address] [email or web address]. [facility] documented as of this encounter Visit Diagnoses Not on filedocumented in this encounter Care Teams Perch Machine Inspector Relationship Specialty Start Date End Date Ross Moran MD [address] [place] [address] [place] [address] PCP - General Internal Medicine 05/16/23 07/12/24 Larissa Perez MD [address] [place] [address] [place] [address] PCP - General Internal Medicine 07/13/24 Wil Banks MD [address] [facility] [address] [place] [address] YOHANA@[email or web address] Referring Physician Orthopedic Surgery 07/13/23 Hari Stevens MD, EdM [facility] Espinoza Andrews [address] [address] [email or web address] Primary Oncologist Hematology 07/13/23 Kellie Croft, [place] [address] [email or web address] Registered Nurse 07/13/23 Lynda Mora, PAKatiC [address] [place] [address] [phone] (work) [email or web address] Physician Architecture Internship Physician Architecture Internship 07/13/23 documented as of this encounter Additional Source Comments The information contained in this document represents components of the legal health record. It is not the complete legal health record.[facility]
--- OUTSIDE RECORDS SUMMARY | 2024-10-25 18:06 | XMS_ITS | Encounter Summary ---
Author Organization [facility] Address [address] [place] [address] Phone Care Team Providers Care Development Architect Name Role Phone Ross Moran MD Primary Care Provider Wil Banks MD Unavailable Hari Stevens MD, EdM Unavailable [phone] Kellie Croft RN Unavailable Kathryn [email or web address] Lynda Mora PA-C Unavailable [phone] Larissa Perez MD Primary Care Provider [phone] Encounter Details Date Type Department Care Team (Late st Contact Info) Description 06/29/2023 Transcribe Orders [facility] Specimen Processing [address] [place] [address] Ross Moran MD [address] [place] [address] [place] [address] Social History Tobacco Use Types Packs/Day Years Used Date Smoking Tobacco: Never Assessed Education Answer Date Recorded Are you interested in more education? Not on kareen e 05/16/2023 Are you concerned about learning? Not on file 05/16/2023 No 05/16/2023 No 05/16/2023 Digital Access Answer Date Recorded No 05/16/2023 No 05/16/2023 Reliable internet access at home? Not on file 05/16/2023 Device with a working camera? Not on file Comments Unknown Sex and Gender Information Value Date Recorded Sex Assigned at Female 05/16/2023 2:35 PM EDT Legal Sex Female 9:59 PM EDT Gender Identity Female 05/16/2023 2:35 PM EDT Sexual Orientation Straight 05/16/2023 2: 35 PM EDT documented as of this encounter Plan of Treatment Upcoming Encounters Date Type Department Care Team (Late st Contact Info) Description 12/10/2024 1:30 PM EDT Office Visit [facility] Orthopedics at [place] [address] [place] [address] Wil Banks MD [address] [place] [address] [email or web address] documented as of this encounter Visit Diagnoses Not on filedocumented in this encounter Care Teams Development Architect Relationship Specialty Start Date End Date Ross Moran MD [address] [place] [address] [place] [address] PCP - General Internal Medicine 05/16/23 07/12/24 Larissa Perez MD [address] [place] [address] [place] [address] PCP - General Internal Medicine 07/13/24 Wil Banks MD [address] [place] [address] [email or web address] Referring Physician Orthopedic Surgery 07/13/23 Hari Stevens MD, EdM [address] [place] [address] [email or web address]@[email or web address] Primary Oncologist Hematology 07/13/23 Kellie Croft, RN [address] [place] [address] [email or web address] Registered Nurse 07/13/23 Lynda Mora PA-C [address] [place] [address] [email or web address] Physician Drainlayer Physician Drainlayer 07/13/23 documented as of this encounter Additional Source Comments The information contained in this document represents components of the legal health record. It is not the complete legal health record.[facility]
== END 2024-10-25 14:54 | disposition home or self-care (01) ==
LOC: HO.HMCFM 14:20
PROVIDERS: PCP Internal Medicine; Visit Provider Internal Medicine
DX: I10 Essential (primary) hypertension (principal); I48.0 Paroxysmal atrial fibrillation; N39.0 Urinary tract infection, site not specified; D47.1 Chronic myeloproliferative disease; M79.2 Neuralgia and neuritis, unspecified

== ENCOUNTER → 2024-10-25 14:19 | Outpatient (BNVA) | payer MEDICARE, SELFPAY | PROVIDERS: PCP Internal Medicine; Visit Provider Internal Medicine | DX: I10 Essential (primary) hypertension (principal); I48.0 Paroxysmal atrial fibrillation; D47.1 Chronic myeloproliferative disease; M79.2 Neuralgia and neuritis, unspecified | CPT/HCPCS: 99212 ==

== ENCOUNTER 2024-12-14 19:05 | Inpatient (IN) | payer MEDICARE, SELFPAY ==
--- OUTSIDE RECORDS SUMMARY | 2023-09-12 06:30 | XMS_ITS ---
Author Organization [facility] Address [address] [facility] [place] [address] Care Team Providers Care Brazer Electronic Name Role Phone Ross Moran MD Primary Care Provider Unavaila Emerson Dailey Unavailable [phone] Allergies Allergen (clinical drug ingredient) Drug/Non Drug [...] 09/12/2023 Encounters Encounter Location Date Provider Diagnosis [facility] [address] [place] [address] 09/12/2023 Emerson Elliott Plan Of Treatment No Information Progress Notes * EARLTasneemDunia LDOB:[birth year] (74 yo F)Acc No.[id number]:09/12/2023 Progress Notes Patient: Dunia PERRY Provider: Thien Mcbride DPM :1950 A ge:73 Y S ex:Female Date:09/12/2023 Address:[address] [place], [place] [id number] Pcp:Ross Moran MD Subjective: * Chief Complaints: [...] enies. C ardiovascular: Pacemaker d enies. M ADMINISTRATION SPECIALIST d enies. W PW d enies. C [...] 0 09/12/2023 Generated for Yodit mullen/Sim/Perry on: 07:51 PM EDT
--- OUTSIDE RECORDS SUMMARY | 2024-04-09 09:15 | XMS_ITS ---
Author Organization [facility] Address [address] [place] [address] Care Team Providers Care Rf Microwave Engineer Name Role Phone CYNTHIA HERNANDEZ Primary Care Provider Simone Bennett Jr [phone] REASON FOR VISIT rectal bleed Encounters Encounter Location Date Provider Diagnosis [facility] [address] [facility] [address] [place] [address] 04/09/2024 Simone Craig Jr Plan Of Treatment Next Appt Details Provider Name:Simone stephens Jr, 09/05/2025 01:35:00 PM, [address] [facility], [address], [place], [address], Progress Notes * SINGHSHEA RICHARDRICIA LDOB:[birth year] (74 yo F)Acc No.[id number]:04/09/2024 Progress Notes Patient: ILDA PERRY Provider: Stephen Craig MD :1950 A ge:74 Y S ex:Female Date:04/09/2024 Address:[address] [place] [address] [address], [place] Pcp:CYNTHIA HERNANDEZ Subjective: * Chief Complaints: * [...] 04/09/2024 Generated for Yodit mullen/Sim/Perry on: 1 07:51 PM EDT
--- OUTSIDE RECORDS SUMMARY | 2024-05-16 10:00 | XMS_ITS ---
Author Organization [facility] Address [address] [place] [address] Care Team Providers Care Home Planning Consultant Salesperson Name Role Phone CYNTHIA HERNANDEZ Primary Care Provider Simone Bennett Jr REASON FOR VISIT nausea/vomiting, anorexia Encounters Encounter Location Date Provider Diagnosis [facility] [place] [address] [place] [id number] 05/16/2024 Simone Craig Jr Plan Of Treatment Next Appt Details Provider Name:Simone stephens Jr, 09/05/2025 01:35:00 PM, [address], [address], [place], [address], Progress Notes * ILDA WINTERS LDOB:[birth year] (74 yo F)Acc No.[id number]:05/16/2024 EGD/MAC Patient: SHEA PERRYTYSHAWN Simental Provider: Stephen Craig MD :1950 A ge:74 Y S ex:Female Date:05/16/2024 Address:[address] [place] [address] [address], [id number] Pcp:CYNTHIA HERNANDEZ Subjective: * Chief Complaints: * [...] 05/16/2024 Generated for Yodit mullen/Sim/Perry on: 1 07:52 PM EDT
--- OUTSIDE RECORDS SUMMARY | 2024-05-25 06:00 | XMS_ITS ---
Author Organization [facility] Address 10 [facility] [address] [place] [address] Care Team Providers Care Boarding Room Fixer Name Role Phone CYNTHIA HERNANDEZ Primary Care Provider Simone Bennett Jr [phone] REASON FOR VISIT wt loss,early satiety,colitis Encounters Encounter Location Date Provider Diagnosis [facility] [place] [address] [place] [id number] 05/25/2024 Simone Craig Jr Plan Of Treatment Next Appt Details Provider Name:Simone stephens Jr, 09/05/2025 01:35:00 PM, [address] [facility], [address], [place], [address], Progress Notes * ILDA WINTERS LDOB:[birth year] (74 yo F)Acc No.[id number]:05/25/2024 EGD and COL/MAC Patient: Kamille MARTINEZ ILDA Simental Provider: Stephen Craig MD :1950 A ge:74 Y S ex:Female Date:05/25/2024 Address:[address] [place] [address] [address], [id number] Pcp:CYNTHIA HERNANDEZ Subjective: * Chief Complaints: * [...] 0 05/25/2024 Generated for Yodit mullen/Sim/Perry on: 07:51 PM EDT
--- NOTE | ~2024-12-14 | CT_ITS ---
CLINICAL HISTORY: Fall, left-sided chest wall tenderness --- Additional Notes or Special Instructions: R O rib fractures CT chest without contrast Comparison: None provided Findings: Limited evaluation without intravenous contrast. The heart is normal size. No pericardial effusion. Thoracic aorta is normal in size with no aneurysm. Atherosclerotic vascular disease No consolidation, pleural effusion or pneumothorax. Thyroid is small. Thoracic esophagus within normal limits. Very small hiatal hernia. The visualized upper abdomen demonstrates cholelithiasis, bilateral renal cysts the diverticulosis. No acute fractures. Mild scoliosis. Multilevel degenerative changes of the mid to lower thoracic spine and upper lumbar spine. Diffuse demineralization. IMPRESSION: 1. No acute findings on noncontrast CT chest. 2. No acute fracture. This document has been electronically signed by: Olive Corrales MD on 12/14/2024 22:14:55
--- NOTE | ~2024-12-14 | US_ITS ---
CLINICAL HISTORY: carotid stenosis --- Additional Notes or Special Instructions: ensure no flow in occluded carotid US Bilateral Carotid Duplex Comparison: None provided Findings: Moderate plaque within the common carotid arteries. Moderate plaque within the carotid bulbs. Normal color doppler and waveforms morphology. Peak systolic velocities: Right CCA: 64 cm/s. Right ICA: 503 cm/s. ICA/CCA ratio: 7.9. Right ECA: 282 cm/second. Right vertebral artery flow antegrade. Left CCA: 101 cm/s. Left ICA: 198 cm/s. ICA/CCA ratio: 1.7. Left ECA: 263 cm/second. Left vertebral artery flow antegrade. IMPRESSION: 1. 80-99% right ICA stenosis. 2. 50-79% left ICA stenosis. This document has been electronically signed by: Andrew Schulz MD on 12/16/2024 08:27:38
--- NOTE | ~2024-12-14 | CT_ITS ---
CLINICAL HISTORY: Left upper and lower extremity weakness r o LVO CT angiography head and neck with contrast. 3D Postprocessing. Comparison: None provided Findings: Aortic arch and arch vessels are patent. Significant tortuosity of left common carotid artery. Atherosclerotic vascular disease at left carotid bifurcation and proximal left internal carotid artery resulting in 75% stenosis. More distally left internal carotid artery in the neck is unremarkable. There is atherosclerotic vascular disease at right carotid bifurcation with likely occlusion or near-complete occlusion at the origin of right internal carotid artery which reconstitutes more distally. Distal to the reconstitution no additional high-grade stenosis or occlusion but right internal carotid artery smaller than the left. Bilateral external carotid arteries and bilateral vertebral arteries are patent. Bilateral intracranial internal carotid arteries are patent with the right smaller than the left. Atherosclerotic vascular disease of cavernous and supraclinoid segments. Vertebral basilar junction is unremarkable and basilar artery enhances normally. Bilateral anterior, middle and posterior cerebral arteries are patent. No definite intracranial large vessel occlusion. No aneurysm. Lung apices clear. No acute fracture. Degenerative changes cervical spine. IMPRESSION: 1. CT angiography neck demonstrates 75% stenosis involving proximal left internal carotid artery and occlusion or near-complete occlusion of proximal right internal carotid artery which reconstitutes in the neck but is smaller than the left internal carotid artery. Catheter angiography should be considered. 2. No intracranial large vessel occlusion. This document has been electronically signed by: Olive Corrales MD on 12/14/2024 19:57:32
--- NOTE | ~2024-12-14 | CT_ITS ---
CLINICAL HISTORY: Left upper and lower extremity weakness since yest --- Additional Notes or Special Instructions: Fall with head strike on Xarelto, rule out fracture, bleed CT head without contrast Comparison: None provided Findings: No intra-axial mass, midline shift, hydrocephalus, or acute hemorrhage. There is atrophy. There is small focal encephalomalacia in right parietal lobe in the posterior inferior aspect, likely an old infarct. There are nonspecific bilateral supratentorial white matter hypodensities most suggestive of chronic small-vessel ischemic changes. There is a nonacute lacunar infarct in the anterior limb of the right internal capsule. Atherosclerotic vascular disease. The visualized paranasal sinuses and mastoid air cells are clear. The orbits are unremarkable. No acute skull fracture. IMPRESSION: 1. No acute intracranial findings. If acute ischemia is clinically suspected follow-up brain MRI is recommended which are higher sensitivity for detection of acute ischemia. 2. White matter chronic ischemic changes, nonacute right parietal infarct and nonacute right internal capsule lacunar infarct. This document has been electronically signed by: Olive Corrales MD on 12/14/2024 19:39:58
--- NOTE | ~2024-12-14 | MR_ITS ---
CLINICAL HISTORY: Left hemiparesis MR Angiography head without gadolinium Comparison: None provided Findings Widely patent intracranial internal carotid arteries. Vertebrobasilar system is normal. Cerebral arteries are patent. Unremarkable cerebellar arteries. IMPRESSION: Normal MRA brain This document has been electronically signed by: Dominique Barney MD on 12/16/2024 14:49:54
--- NOTE | 2024-12-14 19:12 | ED.NEUROSD ---
HPI - Neuro Symptoms/Deficit General Chief Complaint: Stroke Stated Complaint: fall earlier, L arm weakness ,+ thinners Time Seen by Provider: 12/14/24 19:11 Source: patient Mode of arrival: EMS Limitations: no limitations History of Present Illness ED Provider: Dr. Ed Velázquez HPI Narrative: 74-year-old female with a past medical history significant for HTN, AFib on Xarelto, GERD, polycythemia vera on hydroxyurea, essential thrombocytosis, osteopenia, diverticulitis with colovesicular fistula (05/15/2024) who presented to the emergency department as a possible stroke alert. Patient states that yesterday at around 13:00 hours she developed weakness of her left arm with an uncoordinated feeling to her left arm. She states that prior to coming to the emergency department today, she was trying to sit in a chair, missed the chair and fell to the floor landing on her buttocks. She then fell to her left and struck the left side of her head on the fireplace. She had no loss of consciousness. She is complaining of pain in her tailbone and pain and pain to her the left side of her chest. She states she has persistent weakness in her left arm and left leg with and uncoordinated feeling in her left arm. Patient does have a history of paroxysmal atrial fibrillation in his on Xarelto. I did examine the patient on the plant controls specialist stretcher, patient does have weakness of her left upper and lower extremity with past pointing on gnjutk-az-hdtd-to-finger in the left upper extremity compared to the right. Patient was sent immediately to CT scan for CT head without contrast and CT angiogram head and neck. Physical examination did reveal weakness of both the left upper and lower extremity with diminished noxious stimuli to the left lower extremity and ataxia left upper extremity. NIH stroke scale was 4. Patient also had tenderness palpation of her left chest wall. Related Data Home Medications ?Medication ?Instructions ?Recorded ?Confirmed lisinopril 40 mg tablet 40 mg PO DAILY 03/10/21 12/06/24 acetaminophen 325 mg tablet 975 mg PO Q8H PRN Pain 05/09/24 12/06/24 cholecalciferol (vitamin D3) 25 25 mcg PO DAILY 09/17/24 12/06/24 mcg (1,000 unit) capsule amlodipine 10 mg tablet 10 mg PO DAILY 10/02/24 12/06/24 ketorolac 0.4 % eye drops 1 drp ophthalmic (eye) QID 10/02/24 12/06/24 Previous Rx's ?Medication ?Instructions ?Recorded metoprolol succinate 25 mg 25 mg PO DAILY #90 tabs 09/28/23 tablet,extended release 24 hr linaclotide 145 mcg capsule 145 mcg PO DAILY #90 caps 08/03/24 (Linzess) folic acid 1 mg tablet 1 mg PO DAILY #90 tabs 08/20/24 omeprazole 40 mg capsule,delayed 40 mg PO DAILY #90 caps 09/17/24 release temazepam 15 mg capsule 15 mg PO BEDTIME PRN Sleep #30 caps 10/26/24 rivaroxaban 20 mg tablet (Xarelto) 20 mg PO DAILY #90 tabs 12/04/24 Allergies Allergy/AdvReac Type Severity Reaction Status Date / Time diphenhydramine AdvReac Anxiety Verified 12/14/24 19:21 Review of Systems Review of Systems: Yes all other systems are reviewed and are negative [facility] Past Medical History [facility] Narrative: Social history: She denies tobacco, alcohol and drug use Medical History Polycythemia vera Postoperative nausea Osteopenia Hx of Lyme disease GERD (gastroesophageal reflux disease) Paroxysmal atrial fibrillation HTN (hypertension) Persistent atrial fibrillation Surgical History History of total right knee replacement History of esophagogastroduodenoscopy (EGD) Hx of section Hx of hysterectomy Hx of colonoscopy (~08/13/21) Hx of appendectomy Family History Family History Father Cancer Stroke Mother Diabetes Social History Social History Household Members: None Housing: Condominium Are you a primary intensive care unit registered nurse to a significant other at home: Yes ( with Alzheimer's and Parkinson's) Do you presently have visiting nurse or other home services: No Patient Tobacco Use Status: Never used Tobacco Smoked in Last 30 Days: No e-Cigarette/Vaping Use: Never Used Second Hand Smoke Exposure: No Use of substances other than those prescribed or required for medical reasons: No Advance Directives: Yes Advance Directives on File: Yes Advance Directives Date on File: 03/11/21 Do you have a plan to hurt others: No Plan service: No Current occupational status: retired Current occupational exposures/hazards: No Cognitive needs: Yes (walker) Hearing needs: No Vision needs: Yes (Rx glasses) Physical Exam Vital Signs: Vital Signs: Last Vital Signs Temp 98.4 F 12/14/24 19:29 Pulse 84 12/14/24 19:29 Resp 12 12/14/24 19:29 BP 154/74 H 12/14/24 19:29 Pulse Ox 98 12/14/24 19:29 O2 Del Method Room Air 12/14/24 19:29 BMI result Body Mass Index 25.0 Exam: General: Awake, alert in no distress Head: Normocephalic, atraumatic EENT: PERRL, sclera and conjunctiva are normal, mouth with no erythema or exudates Neck: Supple, no adenopathy, no cervical spine tenderness Lung: breath sounds symmetric, no wheezing, no rales and no rhonchi Chest: symmetric movement, moderate left-sided chest wall tenderness Heart: regular rate and rhythm, normal S1, S2 no murmurs or rubs Abdomen: soft, non-tender, nondistended, normal bowel sounds Back: Patient has tenderness palpation of her coccyx area but no point tenderness over her thoracic or lumbar vertebrae Extremities: no deformities, moves all extremities symmetrically, no edema Neuro: General: ?Awake, alert, oriented, normal speech Cranial nerves: ?Cranial nerves ?intact Strength: ?Weakness of the left upper and left lower extremities compared to the right Cerebellar: Poor ngdfcp-ql-hcjm-to-finger left upper extremity, poor good rapid finger movement left upper extremity movement, normal heel to weiss Sensory: Diminished noxious stimuli to left lower extremity compared to the right Psych: Pleasant, cooperative Medications Administered Discontinued Medications Generic Name Dose Route Start Last Admin Trade Name Freq PRN Reason Stop Dose Admin Iohexol 100 ml 12/14/24 19:24 12/14/24 19:24 Iohexol 350 Mg/Ml 100 Ml Infus..Btl IV 12/14/24 19:25 70 ml ONCE ONE Administration Medical Decision Making Medical Decision Making MDM Narrative: 74-year-old female with a past medical history significant for HTN, AFib on Xarelto, GERD, polycythemia vera on hydroxyurea, essential thrombocytosis, osteopenia, diverticulitis with colovesicular fistula (05/15/2024) who presented to the emergency department as a possible stroke alert. Patient states that yesterday at around 13:00 hours she developed weakness of her left arm with an uncoordinated feeling to her left arm. She states that prior to coming to the emergency department today, she was trying to sit in a chair, missed the chair and fell to the floor landing on her buttocks. She then fell to her left and struck the left side of her head on the fireplace. She had no loss of consciousness. She is complaining of pain in her tailbone and pain and pain to her the left side of her chest. She states she has persistent weakness in her left arm and left leg with and uncoordinated feeling in her left arm. Patient does have a history of paroxysmal atrial fibrillation in his on Xarelto. I did examine the patient on the plant controls specialist stretcher, patient does have weakness of her left upper and lower extremity with past pointing on owzovd-nd-opvf-to-finger in the left upper extremity compared to the right. Patient was sent immediately to CT scan for CT head without contrast and CT angiogram head and neck. Physical examination did reveal weakness of both the left upper and lower extremity with diminished noxious stimuli to the left lower extremity and ataxia left upper extremity. NIH stroke scale was 4. Patient also had tenderness palpation of her left chest wall. Differential diagnosis: ?Includes but is not limited to skull fracture, intracranial bleed, stroke, left chest wall contusion, left rib fractures, coccyx fracture/contusion, anemia, electrolyte abnormalities Course: 21:16 My independent interpretation patient's laboratory evaluation is as follows: WBC elevated 12,100. Platelet count elevated 806,000. PT and INR elevated 18.8 and 1.6. PTT elevated 36.4-most likely secondary to Xarelto. BUN elevated 24. Glucose elevated 116. Calcium elevated 11.5-similar elevations in the past. Total bilirubin elevated 1.4. CT scan of the brain without IV contrast revealed no acute fracture or bleed. No acute stroke noted, the patient did have white matter chronic ischemic changes, nonacute right parietal infarct and nonacute right internal capsular lacunar infarct. CT angiogram of the head and neck revealed no large vessel occlusion. The patient does have 75% stenosis involving the proximal left internal carotid and and occlusion or near complete occlusion of the right internal carotid artery which reconstitutes in the neck but it is smaller than the internal carotid artery. The patient does have left-sided symptoms that may be related to the right internal carotid findings. CT scan of the chest is pending to rule out rib fractures The patient was outside of the TNK window in his also on Xarelto therefore she is not a thrombolytics candidate. I will discuss admission further evaluation of her stroke-like symptoms with the covering hospitalist. 22:19 I did discuss the patient's presentation over tiger text with Dr. Alvarado and she requests that I discuss the CT angiogram of the neck with our covering vascular surgeon, Dr. Swartz. Dr Swartz felt that the patient could be managed here. He recommended continuing the Xarelto and also giving her aspirin and high-dose statin. I ordered Xarelto 20 mg, aspirin 162 mg and atorvastatin 80 mg orally. The patient was accepted on the hospitalist service by Dr. Alvarado. Differential Diagnosis Differential Diagnoses: The differential diagnosis associated with the presentation includes (See above) Admission/Observation Consideration of admission/observation: Escalation of care including admission/observation considered (Yes) Consult Healthcare Provider Management of the patient was discussed with: Hospitalist Lab Data MDM Lab Attestation statement: I reviewed the patient's lab results. 12/14/24 19:12 12/14/24 19:12 Labs: Lab Results 12/14/24 12/14/24 12/14/24 Range/Units 19:10 19:12 21:20 WBC 12.1 H (4.8-10.8) X10*3/uL RBC 5.46 (4.20-5.50) X10*6/uL Hgb 14.0 (12.0-16.0) g/dl Hct 45.3 (37.0-47.0) % MCV 83.0 (80.0-98.0) fL MCH 25.6 L (27.0-33.0) pg MCHC 30.9 L (31.0-35.0) g/dl RDW 15.7 (11.0-16.0) % Plt Count 806 H (160-400) X10*3/uL MPV 8.8 L (9.4-12.3) fL Immature Gran % (Auto) 0.8 H (0.0-0.4) % Neut % (Auto) 76.2 H (45-73) % Lymph % (Auto) 15.9 L (20-40) % [place] % (Auto) 5.8 (2-11) % Eos % (Auto) 0.6 (0-4) % Baso % (Auto) 0.7 (0-2) % Lymph # (Auto) 1.9 (1.2-4.9) X10*3/uL [place] # (Auto) 0.7 (0.1-1.2) X10*3/uL Eos # (Auto) 0.1 (0.0-0.4) X10*3/uL Baso # (Auto) 0.1 (0.0-0.2) X10*3/uL Abs Immat Gran (auto) 0.10 H (0.00-0.03) X10*3/uL Absolute Neuts (auto) 9.2 H (2.0-8.3) x10*3/uL Absolute Nucleated RBC 0.000 (0.0-0.012) X10*3/uL Nucleated RBC % (auto) 0.0 (0.0-0.2) /100WBC Hold Purple Top SEE NOTE PT 18.8 H (10.9-12.4) SEC INR 1.6 H (0.9-1.1) APTT 36.4 H (26.7-34.1) SEC Sodium 137 (135-145) mmol/L Potassium 4.0 (3.3-5.1) mmol/L Chloride 107 (96-108) mmol/L Carbon Dioxide 22 (22-29) mmol/L Anion Gap 12 (12-20) BUN 24 H (9-16) mg/dL Creatinine 1.27 (0.5-1.4) mg/dL Estim Creat Clear Calc 37.4 Estimated GFR 41 POC Glucose 126 H (60-115) mg/dL Random Glucose 116 H (60-115) mg/dL Calcium 11.5 H D (8.4-10.2) mg/dL Total Bilirubin 1.4 H (0.0-1.0) mg/dL Direct Bilirubin 0.5 (0.0-0.5) mg/dL AST 22 (5-31) U/L ALT 11 (0-31) U/L Alkaline Phosphatase 60 (39-117) U/L Troponin I High Sens 3.5 D (<3.5-17.0) ng/L Total Protein 7.6 (6.5-8.0) g/dL Albumin 4.4 (3.5-5.0) g/dL Triglycerides 82 (<150) mg/dL Cholesterol 194 (<200) mg/dL LDL Cholesterol, Calc 113 H (<100) mg/dL HDL Cholesterol 65 (>40) mg/dL Hold Green Top See Note Urine Color Yellow Urine Appearance Clear Urine pH 5.5 (5.0-9.0) Ur Specific [place] 1.025 (1.005-1.025) Urine Protein Negative (Neg-Trace) mg/dL Urine Glucose (UA) Negative (Negative) mg/dL Urine Ketones Negative (Negative) mg/dL Urine Blood Negative (Negative) Urine Nitrite Negative (Negative) Ur Leukocyte Esterase Small (1+) H (Negative) Urine RBC 0-2 (0-2) /HPF Urine WBC 0-5 (0-5) /HPF Ur Squamous Epith Cells 0-2 (0-2) /HPF Urine Bacteria None Seen (None Seen) Hyaline Casts 3-5 (0-2) /LPF Independent Interpretation I performed an independent interpretation of an: EKG Interpretation: My independent interpretation of the patient's 12 EKG done on 12/14/2024 at 19:37 hours is as follows: Normal sinus rhythm rate of 84, normal VT interval, QRS duration QTC interval, no ST segment elevation, no ST segment depression, no PACs, no PVCs. Radiology Impression Discussion of test interpretation with radiology: I have reviewed the radiologist's reading. Radiologist Impression: CT head without contrast Comparison: None provided Findings: No intra-axial mass, midline shift, hydrocephalus, or acute hemorrhage. There is atrophy. There is small focal encephalomalacia in right parietal lobe in the posterior inferior aspect, likely an old infarct. There are nonspecific bilateral supratentorial white matter hypodensities most suggestive of chronic small-vessel ischemic changes. There is a nonacute lacunar infarct in the anterior limb of the right internal capsule. Atherosclerotic vascular disease. The visualized paranasal sinuses and mastoid air cells are clear. The orbits are unremarkable. No acute skull fracture. IMPRESSION: 1. No acute intracranial findings. If acute ischemia is clinically suspected follow-up brain MRI is recommended which are higher sensitivity for detection of acute ischemia. 2. White matter chronic ischemic changes, nonacute right parietal infarct and nonacute right internal capsule lacunar infarct. ADDENDUM This document has been electronically signed by: Olive Corrales MD on 12/14/2024 19:57:32 ADDENDUM: This report was discussed with Dr. Ed Velázquez on Dec 14, 2024 20:01:00 EDT. This document has been electronically signed by: Antonia Chon on 12/14/2024 20:01:59 Addendum Dictated By: Olive Corrales MD Addendum Signed By: <Electronically signed by Olive Corrales MD in OV> 12/14/242001 Addendum Cosigned By: DD/ TD/TT: 12/14/24 CT angiography head and neck with contrast. 3D Postprocessing. Comparison: None provided Findings: Aortic arch and arch vessels are patent. Significant tortuosity of left common carotid artery. Atherosclerotic vascular disease at left carotid bifurcation and proximal left internal carotid artery resulting in 75% stenosis. More distally left internal carotid artery in the neck is unremarkable. There is atherosclerotic vascular disease at right carotid bifurcation with likely occlusion or near-complete occlusion at the origin of right internal carotid artery which reconstitutes more distally. Distal to the reconstitution no additional high-grade stenosis or occlusion but right internal carotid artery smaller than the left. Bilateral external carotid arteries and bilateral vertebral arteries are patent. Bilateral intracranial internal carotid arteries are patent with the right smaller than the left. Atherosclerotic vascular disease of cavernous and supraclinoid segments. Vertebral basilar junction is unremarkable and basilar artery enhances normally. Bilateral anterior, middle and posterior cerebral arteries are patent. No definite intracranial large vessel occlusion. No aneurysm. Lung apices clear. No acute fracture. Degenerative changes cervical spine. IMPRESSION: 1. CT angiography neck demonstrates 75% stenosis involving proximal left internal carotid artery and occlusion or near-complete occlusion of proximal right internal carotid artery which reconstitutes in the neck but is smaller than the left internal carotid artery. Catheter angiography should be considered. 2. No intracranial large vessel occlusion. This document has been electronically signed by: Olive Corrales MD on 12/14/2024 19:57:32 CT chest without contrast Comparison: None provided Findings: Limited evaluation without intravenous contrast. The heart is normal size. No pericardial effusion. Thoracic aorta is normal in size with no aneurysm. Atherosclerotic vascular disease No consolidation, pleural effusion or pneumothorax. Thyroid is small. Thoracic esophagus within normal limits. Very small hiatal hernia. The visualized upper abdomen demonstrates cholelithiasis, bilateral renal cysts the diverticulosis. No acute fractures. Mild scoliosis. Multilevel degenerative changes of the mid to lower thoracic spine and upper lumbar spine. Diffuse demineralization. IMPRESSION: 1. No acute findings on noncontrast CT chest. 2. No acute fracture. This document has been electronically signed by: Olive Corrales MD on 12/14/2024 22:14:55 NIH Stroke Scale Internal: Initial- Upon Arrival Level of Consciousness: Alert Level of Consciousness Questions: Answers both questions correctly Level of Consciousness Commands: Performs both tasks correctly Best Gaze: Normal Visual: No visual loss Facial Palsy: Normal Motor Arm (Right): No drift Motor Arm (Left): Drift Motor Leg (Right): No drift Motor Leg (Left): Drift Limb Ataxia: Present in one limb Sensory: Mild to moderate sensory loss Best Language: No aphasia Dysarthia: Normal Extinction and Inattention: No abnormality Score: 4 Critical Care Time Critical Care Time Critical Care Time: Yes Total Critical Care Time: 80 Attestation: Critical Care: The patient was critically ill with a high probability of imminent or life threatening deterioration. I spent greater than 30 minutes of discontinuous time evaluating the patient,delivering critical care at the bedside, discussing and evaluating pertinent data with consultants. Critical care time does not include time spent performing separately billable procedures or teaching. Total time spent performing critical care was 80 minutes. Discharge Plan Discharge Clinical Impression: Carotid stenosis, bilateral, Acute chest wall pain, Acute coccygeal pain Stroke Qualifiers: Laterality of affected vessel: right Fall Qualifiers: Encounter type: initial encounter Qualified Code(s): W19.XXXA - Unspecified fall, initial encounter Closed head injury Qualifiers: Encounter type: initial encounter Qualified Code(s): S09.90XA - Unspecified injury of head, initial encounter Patient Disposition: Admitted As Inpatient Print Language: Azerbaijani
--- NOTE | 2024-12-14 19:14 | ECG_ITS ---
Test Reason : STROKE Blood Pressure : */* mmHG Vent. Rate : 84 BPM Atrial Rate : 84 BPM P-R Int : 196 ms QRS Dur : 76 ms QT Int : 358 ms P-R-T Axes : 82 55 73 degrees QTcB Int : 423 ms Sinus rhythm Premature atrial complexes Otherwise normal ECG When compared with ECG of 09-May-2024 14:30, T wave inversion no longer evident in Inferior leads T wave inversion no longer evident in Anterolateral leads Referred By: Ed Velázquez Electronically Signed By: MELANIE WOOD
[2024-12-14 19:17] VITALS: BP 163/88; PULSE 82; O2SAT 97; BMI 25.0
[2024-12-14 19:20] LABS: Glucose, Whole Blood 126 mg/dL (60-115)
[2024-12-14 19:23] LABS: MANUAL DIFF FLAG NO
[2024-12-14] MEDS: iohexoL 350 MG/ML 100 ML INFUS..BTL IV (19:24)
[2024-12-14 19:29] VITALS: BP 154/74; PULSE 84; RESP 12; TEMP 36.9; O2SAT 98
[2024-12-14 19:36] LABS: Hematocrit 45.3 % (37.0-47.0); Hemoglobin 14.0 g/dl (12.0-16.0); Imm Gran Abs Auto 0.10 X10*3/uL (0.00-0.03); Imm Gran Pct Auto 0.8 % (0.0-0.4); Lymphocytes Absolute Auto 1.9 X10*3/uL (1.2-4.9); Mean Corpuscular HGB Conc 30.9 g/dl (31.0-35.0); Mean Corpuscular Hemoglobin 25.6 pg (27.0-33.0); Mean Corpuscular Volume 83.0 fL (80.0-98.0); NRBC Abs Auto 0.000 X10*3/uL (0.0-0.012); NRBC Pct Auto 0.0 /100WBC (0.0-0.2); Platelet Count 806 X10*3/uL (160-400); Red Blood Count 5.46 X10*6/uL (4.20-5.50); White Blood Count 12.1 X10*3/uL (4.8-10.8)
[2024-12-14 19:43] LABS: Alanine Aminotransferase 11 U/L (0-31); Albumin Level 4.4 g/dL (3.5-5.0); Alkaline Phosphatase 60 U/L (39-117); Anion Gap 12 (12-20); Aspartate Amino Transferase 22 U/L (5-31); Blood Urea Nitrogen 24 mg/dL (9-16); Calcium 11.5 mg/dL (8.4-10.2); Carbon Dioxide 22 mmol/L (22-29); Chloride 107 mmol/L (96-108); Cholesterol 194 mg/dL (<200); Creatinine Clr Calc Pharmacy 37.4; Estimated Glomerular Filt Rate 41; HDL Cholesterol 65 mg/dL (>40); INTERNATIONAL NORM RATIO 1.6 (0.9-1.1); Potassium 4.0 mmol/L (3.3-5.1); Prothrombin Time 18.8 SEC (10.9-12.4); Sodium 137 mmol/L (135-145); Total Protein 7.6 g/dL (6.5-8.0); Triglycerides 82 mg/dL (<150)
[2024-12-14 19:45] LABS: Partial Thromboplastin Time 36.4 SEC (26.7-34.1)
[2024-12-14 19:48] LABS: Stroke Lab Use COMPLETE
[2024-12-14 19:50] LABS: Troponin-I High Sensitivity 3.5 ng/L (<3.5-17.0)
--- OUTSIDE RECORDS SUMMARY | 2024-12-14 19:51 | XMS_ITS | Encounter Summary ---
Author Organization [facility] Address [address] [place] [address] Phone Care Team Providers Care Museum Technician Name Role Phone Ross Moran MD Primary Care Provider Wil Banks MD Unavailable Hari Stevens MD, EdM Unavailable [phone] Kellie Croft RN Unavailable [email or web address] Lynda Mora PA-C Unavailable Larissa Perez MD Primary Care Provider [phone] Encounter Details Date Type Department Care Team (Late st Contact Info) Description 07/19/2023 Procedure Pass BWF Periop 6th floor [address] [place] [address] Social History Tobacco Use Types Packs/Day Years [...] Care Team (Late st Contact Info) Description 03/29/2025 2:15 PM EST Office Visit [facility] Department of Orthopaedics [address] [place] [address] Wil Banks MD [address] [place] [phone] [email or web address] documented as of this encounter Visit Diagnoses Not on filedocumented in this encounter Care Teams Museum Technician Relationship Specialty Start Date End Date Ross Moran MD [address] [place] [address] [place] [address] PCP - General Internal Medicine 05/16/23 07/12/24 Larissa Perez MD [address] [place] [address] [place] [address] PCP - General Internal Medicine 07/13/24 Wil Banks MD [address] [place] [id number] [email or web address] Physician Orthopedic Surgery 07/13/23 Hari Stevens MD, EdM [address] [place] [email or web address] Primary Oncologist Hematology 07/13/23 Kellie Croft RN [address] [place] [address] [email or web address] Nurse 07/13/23 Lynda Mora PA-C [address] [place] [id number] [email or web address] Physician Deep Fryer Assembler Physician Deep Fryer Assembler 07/13/23 documented as of this encounter Additional Source Comments The information contained in this document represents components of the legal health record. It is not the complete legal health record.[facility]
--- OUTSIDE RECORDS SUMMARY | 2024-12-14 19:51 | XMS_ITS | Patient Health Record ---
[facility] Address [address] [place] [address] Care Team Providers Care Lead Refinery Supervisor Name Role Phone Ross Moran MD Primary Care Provider Emerson Calvin Unavailable [phone] Allergies Allergen (clinical drug ingredient) Drug/Non Drug [...] Problem Acquired hammer toe of right foot (9711677880180 105) Other hammer toe(s) (acquired), right foot (M20.41) Active confirmed Problem Acquired hammer toe of left foot ([id number] 103) Other hammer toe(s) (acquired), left foot (M20.42) Active confirmed Plan Of Treatment Pending Test Test Name Order Date X ray : Foot, left 2V 11/06/2014 X ray : Foot, left 3V 12/27/2016 X ray : Foot, left 3V 07/05/2019 X ray : Foot, left 3V 08/09/2019 X ray : Foot, left 3V 09/19/2019 X ray : Foot, right 3V 12/27/2016 [id number] NAIL, 6 OR MORE 12/27/2016 [id number] Plate 04/29/2011 [id number] 06/10/2011 [id number] 07/01/2011 [id number] 08/02/2011 [id number] SKIN/TISSUE 08/02/2011 [id number] SKIN/TISSUE 07/01/2011 [id number]- Unna Boot 07/05/2019 Insurance Providers Payer Name Payer Address Payer Phone Subscriber Number Group Number Insured Name Patient Relationship to Insured Coverage Start Date Coverage End Date Medicare National [employer] S[employer] [address] [place] [address] [id number] Dunia Elliott Self - patient is the insured [employer] [address] [place] [address] [id number] Dunia Elliott Self - patient is [...]
--- OUTSIDE RECORDS SUMMARY | 2024-12-14 19:52 | XMS_ITS | Encounter Summary ---
Author Organization [facility] Address [address] [facility] [address] [place] [address] Phone Care Team Providers Care Halal Butcher Name Role Phone Ross Moran MD Primary Care Provider Wil Banks MD Unavailable Hari Stevens MD, EdM Unavailable [phone] Kellie Croft RN Unavailable Kathryn [email or web address] Lynda Mora PA-C Unavailable Larissa Perez MD Primary Care Provider [phone] Encounter Details Date Type Department Care Team (Late st Contact Info) Description 06/29/2023 Transcribe Orders [facility] Specimen Processing [address] [place] [address] Ross Moran MD [address] [place] [address] [place] [address] Social History Tobacco Use Types Packs/Day Years [...] Description 03/29/2025 2:15 PM EST Office Visit [facility] [address] [place] [address] Wil Banks MD [address] [place] [address] [email or web address] U documented as of this encounter Visit Diagnoses Not on filedocumented in this encounter Care Teams Halal Butcher Relationship Specialty Start Date End Date Ross Moran MD [address] [place] [address] [place] [address] PCP - General Internal Medicine 05/16/23 07/12/24 Larissa Perez MD [address] [place] [address] [place] [address] PCP - General Internal Medicine 07/13/24 Wil Banks MD [address] [place] [address] [email or web address] Referring Physician Orthopedic Surgery 07/13/23 Hari Stevens MD, EdM [address] [place] [address] [email or web address] Primary Oncologist Hematology 07/13/23 Kellie Croft RN 22 [place] [address] [email or web address] Registered Nurse 07/13/23 Lynda Mora PA-C 22 [facility] [place] [address] [email or web address] Physician Rn Spine Physician Rn Spine 07/13/23 documented as of this encounter Additional Source Comments The information contained in this document represents components of the legal health record. It is not the complete legal health record.[facility]
--- OUTSIDE RECORDS SUMMARY | 2024-12-14 19:52 | XMS_ITS | Encounter Summary ---
Author Organization [facility] Address [address] [address] [place] [address] Phone Care Team Providers Care Tandem Operator Name Role Phone Ross Moran MD Primary Care Provider Wil Banks MD Unavailable Hari Stevens MD, EdM Unavailable [phone] Kellie Croft RN Unavailable Kathryn [email or web address] Lynda Mora PA-C Unavailable Larissa Perez MD Primary Care Provider [phone] Encounter Details Date Type Department Care Team (Late st Contact Info) Description 12/08/2023 Procedure Pass BWF Periop 6th floor [address] [place] [address] Social History Tobacco Use Types Packs/Day Years [...] [facility]edics [address] [place] [address] Wil Banks MD [address] [place] [address] [email or web address] U documented as of this encounter Visit Diagnoses Not on filedocumented in this encounter Care Teams Tandem Operator Relationship Specialty Start Date End Date Ross Moran MD [address] [place] [address] [place] [address] PCP - General Internal Medicine 05/16/23 07/12/24 Larissa Perez MD [address] [place] [address] [place] [address] PCP - General Internal Medicine 07/13/24 Wil Banks MD [address] [place] [address] [email or web address] Referring Physician Orthopedic Surgery 07/13/23 Hari Stevens MD, EdM [address] [place] [address] [address] [email or web address] Primary Oncologist Hematology 07/13/23 Kellie Croft, RN [address] [place] [address] [email or web address] Registered Nurse 07/13/23 Lynda Mora PA-C 22 [place] [address] [email or web address] Physician Head Chef Physician Head Chef 07/13/23 documented as of this encounter Additional Source Comments The information contained in this document represents components of the legal health record. It is not the complete legal health record.[facility]
--- OUTSIDE RECORDS SUMMARY | 2024-12-14 19:52 | XMS_ITS | Clinical Summary ---
Author Organization [facility] Address [address] [place] [address] Phone Care Team Providers Care Bookstore Manager Name Role Phone Wil Banks MD Unavailable Hari Stevens MD, EdM Unavailable [phone] Kellie Croft RN Unavailable Kathryn [email or web address] Lynda Mora PA-C Unavailable [phone] Larissa Perez MD Primary Care Provider Allergies [...] Encounters Date Type Department Care Team Description 11/29/2024 Orders Only [facility] Department of Orthopaedics [address] [place] [address] Wil Banks MD Primary osteoarthritis of right knee (Primary Dx) from Last 3 Months Family History Medical [...] [facility] [address] [place] [address] Wil Banks MD [address] [place] [address] [email or web address]. U Health Maintenance Due Date Last Done Comments Adult Td,Tdap Booster 1952 LIPID PANEL 1952 DEPRESSION SCREENING 1964 HEPATITIS C SCREENING 01/25/1970 MAMMOGRAM 1992 COLOGUARD 01/25/1997 COLONOSCOPY 01/25/1997 COLORECTAL CANCER SCREENING 01/25/1997 FIT TEST 01/25/1997 FOBT 01/25/1997 SIGMOIDOSCOPY 01/25/1997 VIRTUAL COLONOSCOPY 01/25/1997 PNEUMOCOCCAL VACCINES (50+ years) (1 of 1 - PCV) 01/25/2002 ZOSTER VACCINES (1 of 2) 01/25/2002 OSTEOPOROSIS SCREENING INITIAL (ONE-TIME) 01/25/2017 BLOOD PRESSURE 02/25/2024 08/25/2023 INFLUENZA VACCINE (#1) 2024 COVID-19 VACCINE ( - 2024- season) 2024 CREATININE LEVEL 02/19/2025 02/20/2024, 04/2023, 11/16/2023, Additional history exists POTASSIUM LEVEL 02/19/2025 02/20/2024, 12/0 04/2023, 11/16/2023, Additional history exists RSV VACCINE (1 - 1-dose 75+ series) 01/25/2027 SMOKING STATUS SCREENING (Once After 26 Yrs) [...] this topic Medical Devices Implanted Type Area Experimental Plastics Fabricator Device Identifier Shelf Expiration Date Model / Serial / Lot Cement Bone 40g Simplex P Demineralized Matrix Radiopaque Void Filler Full Dose Bx/10ea - [id number] Implanted:Qty: 2 on 12/08/2023 by Wil Banks MD at [facility] STANDARD Right: Knee [employer] 12/14/2025 [id number] / / [id number] Knee Implant Component Size 6 Femoral Persona Schurz Cement Cruciate Retaining Standard Right - [id number] Implanted:Qty: 1 on 12/08/2023 by Wil Banks MD at [facility] Right: Knee [employer] 08/21/2033 [id number] / / [id number] Knee Implant 5deg Component Tibial Persona Titanium Stemmed Cemented Rt Size D - [id number] Implanted:Qty: 1 on 12/08/2023 by Wil Banks MD at [facility] Right: Knee [employer] 03/30/2033 [id number] / / [id number] Knee Insert 10mm Component Surface Persona Polyethylene Cruciate Retaining Fixed Conventional Right [id number] - [id number] Implanted:Qty: 1 on 12/08/2023 by Wil Banks MD at [facility] Right: Knee [employer] 06/06/2028 [id number] / / [id number] Procedures Procedure Name Priority Date/Time Associated Diagnosis Comments COMPREHENSIVE METABOLIC PANEL Routine 02/20/2024 4:10 PM EST Polycythemia from Last 3 Months or Most Recently Relevant to Health Maintenance Results * (ABNORMAL) Comprehensive metabolic panel (02/20/2024 4:10 PM EST) SODIUM 133 133 - 146 mmol/L [facility] POTASSIUM 3.2(L) 3.3 - 5.1 mmol/L [facility] CHLORIDE 96 96 - 108 mmol/L [facility] CO2 21 21 - 35 mmol/L [facility] BUN 14 6 - 19 mg/dL [facility] CREATININE 0.90 0.5 - 1.5 mg/dL [facility] GLUCOSE 112(H) 70 - 99 mg/dL [facility] ALBUMIN 3.6(L) 3.9 - 4.8 g/dL [facility] TOTAL PROTEIN 6.9 6.5 - 8.0 g/dL [facility] CALCIUM 10.4(H) 8.4 - 10.3 mg/dL [facility] ALKALINE PHOSPHATASE 62 39 - 117 U/L [facility] TOTAL BILIRUBIN 1.2 0.0 - 1.2 mg/dL [facility] AST 20 0 - 37 U/L [facility] ALT 9 0 - 40 U/L [facility] GLOBULIN 3.3 1 - 4.8 g/dL [facility] EGFR 68 >59 mL/min/1.7 3m2 [facility] Comment:Estimated glomerular filtration rate calculated using the CKD-EPI refit equation. ANION GAP 19 10 - 20 mmol/L [facility] Blood 02/20/2024 4:10 PM EST 02/20/2024 4:13 PM EST Hari Stevens MD, EdM LAB BLOOD ORDERABLES Fabiana spencer Result [facility] [address] [place], [place] [id number] from Last 3 Months or Most Recently Relevant to Health Maintenance Insurance [address] [place] [address] [facility] MEDEX SUPPLEMENT MEDICARE PART A & B [employer] MEDEX SUPPLEMENT MEDICARE PART A & B [employer] MED[employer] SUPPLEMENT MEDICARE PART A & B MEDEX SUPPLEMENT MEDICARE PART A & B #[address] [place] [address] [employer] MEDEX SUPPLEMENT MEDICARE PART A & B [address] [place] [address] [employer] MEDEX SUPPLEMENT MEDICARE PART A & B [address] [place] [address] # [place] [address] [address] [place] [address] Advance Directives For more information, please contact: [phone] (9AM - 5PM [facility], Tuesday-Tuesday) * Full Code (Latest Code Status on File) Date Activated Date Inactivated Comments 12/08/2023 5:03 PM Question Answer Comments Code Status Confirmed With: Patient Care Teams Bookstore Manager Relationship Specialty Start Date End Date Larissa Perez MD [address] [place] [address] [place] [address] PCP - General Internal Medicine 07/13/24 Wil Banks MD [address] [place] [address] [email or web address] Referring Physician Orthopedic Surgery 07/13/23 Hari Stevens MD, EdM [facility] Espinoza Andrews [address] [address] [email or web address] Primary Oncologist Hematology 07/13/23 Kellie Croft RN [address] [place] [address] [email or web address] [email or web address] Registered Nurse 07/13/23 Lynda Mora PA-C [address] [place] [address] [email or web address] Physician Schedule Clerk Physician Schedule Clerk 07/13/23 Additional Source Comments The information contained in this document represents components of the legal health record. It is not the complete legal health record.[facility]
--- OUTSIDE RECORDS SUMMARY | 2024-12-14 19:52 | XMS_ITS | Patient Health Record ---
Author Organization [facility] Address [address] [place] [address] Care Team Providers Care Wool Spotter Name Role Phone MARY, CYNTHIA Primary Care Provider Simone Bennett Jr Allergies Allergen (clinical drug ingredient) Drug/Non Drug Allergy documented on EMR Reaction Allergy Type Onset Date Status diphenhydramine Benadryl anxiety Drug Allergy A ctive Results Component Value Reference Range Notes Pathology Reviewed date:05/24/2024 09:42:51 AM Interpretation: Performing Lab:[facility], [address] [place] [address] Notes/Report: Reason For Referral No Information Medications Medication SIG (Take, Route, Frequency, Duration) Notes Start Date End Date Status Xarelto 20 MG TAKE 1 TABLET BY EVONNE TH EVERY DAY Oral; Duration: 30 Active Hydroxyurea 500 MG TAKE 1 CAPSULE DAILY Oral; Duration: 90 Days Active Vitamin D Not-Taking amLODIPine Besylate 5 MG TAKE 1 TABLET B Y MOUTH EVERY DAY Oral; Duration: 30 Not-Taking Folic Acid 1 MG 1 tablet Orally Once a day Active Linzess 145 MCG 1 capsule at least 3 0 minutes before the first meal of the day on an empty stomach Orally Once a day Active Lisinopril 40 MG TAKE 1 TABLET BY EVONNE TH EVERY DAY Oral; Duration: 30 Active Omeprazole 20 MG 1 capsule Orally Onc e a day; Duration: 30 day(s) Active Metoprolol Succinate ER 25 MG Oral; Duration: 90 Active Immunizations Vaccine Route Administration Date Status Comme nts Influenza Unknown 10/15/2017 Administered Influenza Unknown 02/14/2021 Administered Influenza Unknown 12/06/2023 Administered Social History Alcohol Screen Question Answer Notes Did you have a drink containing alcohol in the p ast year? No Points 0 Interpretation Negative Problems Problem Type SNOMED Code ICD Code Onset Dates Problem Status W/U Status Risk Notes Problem Rectal bleeding (52226564) Rectal bleeding (K62.5) Active confirmed Problem Gastrointestinal tract problem (229654258) Abn findings-GI tract (R93.3) Active confirmed Problem Gastroesophageal reflux disease (043174777) Gastroesophageal reflux disease, unspecified whether esophagitis present [...] N/A Encounters Encounter Location Date Provider Diagnosis [facility] [address] [place] [phone] 05/16/2024 Simone Craig Jr [facility] [address] [place] [phone] 04/23/2024 Simone Craig Jr Weight loss R63.4 ; Colitis K52.9 and Early satiety R68.81 [facility] [address] [place] [phone] 08/30/2024 Simone Craig Jr Gastroesophageal reflux disease, unspecified whether esophagitis present K21.9 and Abn findings-GI tract R93.3 [facility] [address] [place] [phone] 03/30/2024 Simone Craig Jr [facility] [address] [place] [phone] 04/09/2024 Simone Craig Jr [facility] [address] [place] [phone] 05/23/2024 Simone Craig Jr [facility] [address] [place] [phone] 05/23/2024 Simone Craig Jr [facility] [address] [place] [address] 05/24/2024 Simone Craig Jr [facility] [address] [place] [address] 06/08/2024 Simone Craig Jr [facility] [address] [place] [address] 07/19/2024 Simone Craig Jr [facility] [address] [place] [address] 08/30/2024 Simone Craig Jr Assessments Encounter Date Diagnosis [...] 11/03/2018 COLONOSCOPY 07/30/2021 Next Appt Details Provider Name:Simonejeremiah stephens , 09/05/2025 01:35:00 PM, [address] [place] [address], [address], [place], [address], Insurance Providers Payer Name Payer Address Payer Phone Subscriber Number Group Number Insured Name Patient Relationship to Insured Coverage Start Date Coverage End Date MEDICARE OF [place] [address] [place] [address] [id number] ILDA WINTERS Self - patient is the insured MEDEX ATTN CLAIMS [address] [place] [address] [id number] ILDA WINTERS Self - patient is the [...]
--- OUTSIDE RECORDS SUMMARY | 2024-12-14 19:52 | XMS_ITS | Encounter Summary ---
Author Organization [facility] Address [address] [place] [address] Phone Care Team Providers Care Tape Machine Tailer Name Role Phone Ross Moran MD Primary Care Provider Wil Banks MD Unavailable Hari Stevens MD, EdM Unavailable [phone] Kellie Croft RN Unavailable Kathryn [email or web address] Lynda Mora PA-C Unavailable Larissa Perez MD Primary Care Provider [phone] Encounter Details Date Type Department Care Team (Late st Contact Info) Description 01/17/2024 Transcribe Orders [facility] Laboratory [address] [place] [address] Hari Stevens MD, EdM [facility] [address] [address] [email or web address] Status post right knee replacement (Primary Dx); [...] Description 03/29/2025 2:15 PM EST Office Visit [facility] Department of Orthopaedics [address] [place] [address] Wil Banks MD [address] [place] [address] [email or web address] U documented as of this encounter Results * (ABNORMAL) Comprehensive metabolic panel (01/17/2024 3:03 PM EST) SODIUM 133 133 - 146 mmol/L [facility] POTASSIUM 3.0(L) 3.3 - 5.1 mmol/L [facility] CHLORIDE 94(L) 96 - 108 mmol/L [facility] CO2 21 21 - 35 mmol/L [facility] BUN 17 6 - 19 mg/dL [facility] CREATININE 1.10 0.5 - 1.5 mg/dL [facility] GLUCOSE 131(H) 70 - 99 mg/dL [facility] ALBUMIN 3.8(L) 3.9 - 4.8 g/dL [facility] TOTAL PROTEIN 7.5 6.5 - 8.0 g/dL [facility] CALCIUM 10.1 8.4 - 10.3 mg/dL [facility] ALKALINE PHOSPHATASE 78 39 - 117 U/L [facility] TOTAL BILIRUBIN 1.2 0.0 - 1.2 mg/dL [facility] AST 17 0 - 37 U/L [facility] ALT 9 0 - 40 U/L [facility] GLOBULIN 3.7 1 - 4.8 g/dL [facility] EGFR 54(L) >59 mL/min/1.7 3m2 [facility] Comment:Estimated glomerular filtration rate calculated using the CKD-EPI refit equation. ANION GAP 21(H) 10 - 20 mmol/L [facility] Blood 01/17/2024 3:03 PM EST 01/17/2024 3:06 PM EST us Hari Stveens MD, EdM LAB BLOOD ORDERABLES Fabiana l Result [address] [address] documented in this encounter Visit Diagnoses Diagnosis Status post right knee replacement- Primary Primary osteoarthritis of right knee Essential thrombocythemia Generalized pain of knee region documented in this encounter Care Teams Tape Machine Tailer Relationship Specialty Start Date End Date Ross Moran MD [address] [place] [address] [place] [address] PCP - General Internal Medicine 05/16/23 07/12/24 Larissa Perez MD [address] [place] [address] [place] [address] PCP - General Internal Medicine 07/13/24 Wil Banks MD [address] [place] [address] [email or web address] Referring Physician Orthopedic Surgery 07/13/23 Hari Stevens MD, EdM [address] [place] [address] [address] [email or web address] Primary Oncologist Hematology 07/13/23 Kellie Croft, RN [address] [place] [address] Arielle@[email or web address] Registered Nurse 07/13/23 Lynda Mora PAKatiC 22 [place] [address] [email or web address] Physician Outside Sales Engineer Physician Outside Sales Engineer 07/13/23 documented as of this encounter Additional Source Comments The information contained in this document represents components of the legal health record. It is not the complete legal health record.[facility]
--- OUTSIDE RECORDS SUMMARY | 2024-12-14 19:52 | XMS_ITS | Encounter Summary ---
Author Organization [facility] Address [address] [facility] [place] [address] Phone Care Team Providers Care Digital Campaign Specialist Name Role Phone Ross Moran MD Primary Care Provider Wil Banks MD Unavailable Hari Stevens MD, EdM Unavailable [phone] Kellie Croft RN Unavailable Kathryn [email or web address] Lynda Mora PA-C Unavailable [phone] Larissa Perez MD Primary Care Provider [phone] Reason for Visit * Reason Onset Date Comments Dr. Stevens 01/16/2024 Encounter Details Date Type Department Care Team ([facility] st Contact Info) Description 01/16/2024 Telephone [facility] [facility] [address] [facility] 2nd [place] [address] Cherelle Aquino [address] [place] [address] [email or web address] Dr. Stevens Social History Tobacco Use Types [...] Description 03/29/2025 2:15 PM EST Office Visit [facility] Department of Orthopaedics [address] [place] [address] Wil Banks MD [address] [place] [address] [email or web address] U documented as of this encounter Visit Diagnoses Not on filedocumented in this encounter Care Teams Digital Campaign Specialist Relationship Specialty Start Date End Date Ross Moran MD [address] [place] [address] [place] [address] PCP - General Internal Medicine 05/16/23 07/12/24 Larissa Perez MD [address] [place] [address] [place] [address] PCP - General Internal Medicine 07/13/24 Wil Banks MD [address] [place] [address] [email or web address] Referring Physician Orthopedic Surgery 07/13/23 Hari Stevens MD, EdM [address] [place] [address] [email or web address] Primary Oncologist Hematology 07/13/23 Kellie Croft, RN [address] [place] [address] [email or web address] Registered Nurse 07/13/23 Lynda Mora PA-C [address] [place] [address] [email or web address] Physician City Planner Physician City Planner 07/13/23 documented as of this encounter Additional Source Comments The information contained in this document represents components of the legal health record. It is not the complete legal health record.[facility]
[2024-12-14 21:34] LABS: Appearance Urine Clear; Glucose Urine UA Negative (Negative); PH 5.5 (5.0-9.0); Specific Gravity - Urine 1.025 (1.005-1.025); UMIC TRIGGER UACC YES
[2024-12-14 22:00] LABS: UACC Culture Trigger YES
--- NOTE | 2024-12-14 22:16 | PM.IMHP ---
History of Present Illness Date of Service: 12/14/24 Attending physician on admission: Shlomo Murphy Chief Complaint: Left-sided weakness Dunia Elliott is a very pleasant 74 years old woman with a past medical history significant for paroxysmal atrial fibrillation on Xarelto, polycythemia vera on hydroxyurea and essential hypertension presents to the emergency department complaining of left-sided weakness that started yesterday morning and difficulty grabbing objects. She is complaining of a slight headache but denied acute visual disturbances, facial droop, speech difficulty or loss of consciousness. She also denied any acute gastrointestinal or genitourinary symptoms. Denied tobacco smoking, alcohol abuse or illicit drug use. She denied history of strokes. She mentioned that she fell today. She was discharged from rehab 2 weeks ago. In the ED, she was found to have stable vital signs. Blood workup showed mild leukocytosis of 12.1. Hemoglobin is 14.0 and platelets 806. INR is 1.6. There are no significant electrolyte imbalances except for elevated calcium at 11.5. Bilirubin is 1.4, over LFTs are normal. Troponin 3.5. LFTs are remarkable for elevated LDL. UA is unremarkable. Head CT scan showed no acute intracranial findings. Head CTA showed 75% stenosis involving proximal left internal carotid artery and occlusion or near complete occlusion of the proximal right internal carotid artery with constitutes in the next but is smaller than the left internal carotid artery; no intracranial large vessel occlusion. Chest CT scan without contrast showed no acute findings and no acute fractures. ECG showed NSR with marked sinus arrhythmia. ED tx: Atorvastatin 80 mg p.o., aspirin 162 mg p.o., acetaminophen 975 mg p.o., Xarelto 20 mg p.o. Review of Systems Review of Systems: All 12 systems were reviewed and normal except as noted in HPI. [facility] Medical History Polycythemia vera Postoperative nausea Osteopenia Hx of Lyme disease GERD (gastroesophageal reflux disease) Paroxysmal atrial fibrillation HTN (hypertension) Persistent atrial fibrillation Family History Father Cancer Stroke Mother Diabetes Surgical History History of total right knee replacement History of esophagogastroduodenoscopy (EGD) Hx of section Hx of hysterectomy Hx of colonoscopy (~08/13/21) Hx of appendectomy Social History Household Members: None Housing: Condominium Are you a primary prompt care rn to a significant other at home: Yes ( with Alzheimer's and Parkinson's) Do you presently have visiting nurse or other home services: No Patient Tobacco Use Status: Never used Tobacco Smoked in Last 30 Days: No e-Cigarette/Vaping Use: Never Used Second Hand Smoke Exposure: No Use of substances other than those prescribed or required for medical reasons: No Advance Directives: Yes Advance Directives on File: Yes Advance Directives Date on File: 03/11/21 Do you have a plan to hurt others: No Plan service: No Current occupational status: retired Current occupational exposures/hazards: No Cognitive needs: Yes (walker) Hearing needs: No Vision needs: Yes (Rx glasses) Meds Allergies Allergy/AdvReac Type Severity Reaction Status Date / Time diphenhydramine AdvReac Anxiety Verified 12/14/24 19:21 Active Medications: Current Medications Acetaminophen (Acetaminophen 325 Mg Tablet) 975 mg PO Q6H PRN PRN Reason: Pain, Mild 1-3,fever,headache Aspirin (Aspirin 81 Mg Tab.Chew) 162 mg PO DAILY PAYAL Atorvastatin Calcium (Atorvastatin Calcium 80 Mg Tablet) 80 mg PO BEDTIME PAYAL Calcium Carbonate (Calcium Carbonate 750 Mg Tab.Chew) 750 mg PO Q4H PRN PRN Reason: Heartburn Magnesium Hydroxide (Milk Of Magnesia 30 Ml Oral.Susp) 30 ml PO DAILY PRN PRN Reason: Constipation Melatonin (Melatonin 3 Mg Tablet) 6 mg PO BEDTIME PRN PRN Reason: Insomnia Ondansetron HCl (Ondansetron Hcl 4 Mg/2 Ml Vial) 4 mg IVPUSH Q8H PRN PRN Reason: Nausea and Vomiting Home Medications ?Medication ?Instructions ?Recorded ?Confirmed ?Last Taken ?Type lisinopril 40 mg tablet 40 mg PO DAILY 03/10/21 12/06/24 Unknown History acetaminophen 325 mg tablet 975 mg PO Q8H PRN Pain 05/09/24 12/06/24 Unknown History cholecalciferol (vitamin D3) 25 25 mcg PO DAILY 09/17/24 12/06/24 Unknown History mcg (1,000 unit) capsule amlodipine 10 mg tablet 10 mg PO DAILY 10/02/24 12/06/24 Unknown History ketorolac 0.4 % eye drops 1 drp ophthalmic (eye) QID 10/02/24 12/06/24 Unknown History rivaroxaban 20 mg tablet (Xarelto) 20 mg PO DAILY@1700 12/14/24 Unknown History Physical Exam Vital Signs and Narrative: Vital Signs: Last Vital Signs Temp 98.4 F 12/14/24 19:29 Pulse 84 12/14/24 19:29 Resp 12 12/14/24 19:29 BP 154/74 H 12/14/24 19:29 Pulse Ox 98 12/14/24 19:29 O2 Del Method Room Air 12/14/24 19:29 BMI result Body Mass Index 25.0 General: Alert, oriented, in no acute distress. Well nourished and cooperative. Afebrile. HEENT: Head normocephalic, atraumatic. PER, EOMI. Sclerae anicteric, conjunctiva clear. Oropharynx without erythema or exudate. Mucous membranes moist. Neck: No JVD. Heart: RRR, no murmurs, rubs or gallops. Lungs: Clear to auscultation bilaterally. No wheezes, rales, or rhonchi. Normal respiratory effort. Abdomen: Soft, non tenderness, nondistended, normoactive bowel sounds. No hepatosplenomegaly, masses or masses. Extremities: No calf tenderness bilaterally, no swelling Musculoskeletal: Full range of motion. No joint swelling, deformity, or tenderness. Normal muscle tone and strength. Skin: Warm/Dry. No pallor. No jaundice. Neurologic: Alert & oriented x4. Moving all extremities spontaneously. Normal speech. Psychological: Normal mood and affect. Thought process coherent. Results Labs 12/14/24 19:12 12/14/24 19:12 Labs: Laboratory Results - last 24 hr 12/14/24 12/14/24 12/14/24 19:10 19:12 21:20 MCV 83.0 MCH 25.6 L MCHC 30.9 L RDW 15.7 Plt Count 806 H MPV 8.8 L Immature Gran % (Auto) 0.8 H Neut % (Auto) 76.2 H Lymph % (Auto) 15.9 L [place] % (Auto) 5.8 Eos % (Auto) 0.6 Baso % (Auto) 0.7 Lymph # (Auto) 1.9 [place] # (Auto) 0.7 Eos # (Auto) 0.1 Baso # (Auto) 0.1 Abs Immat Gran (auto) 0.10 H Absolute Neuts (auto) 9.2 H Absolute Nucleated RBC 0.000 Nucleated RBC % (auto) 0.0 Hold Purple Top SEE NOTE PT 18.8 H INR 1.6 H APTT 36.4 H Anion Gap 12 Estim Creat Clear Calc 37.4 Estimated GFR 41 POC Glucose 126 H Random Glucose 116 H Calcium 11.5 H D Total Bilirubin 1.4 H Direct Bilirubin 0.5 AST 22 ALT 11 Alkaline Phosphatase 60 Troponin I High Sens 3.5 D Total Protein 7.6 Albumin 4.4 Triglycerides 82 Cholesterol 194 LDL Cholesterol, Calc 113 H HDL Cholesterol 65 Hold Green Top See Note Urine Color Yellow Urine Appearance Clear Urine pH 5.5 Ur Specific [place] 1.025 Urine Protein Negative Urine Glucose (UA) Negative Urine Ketones Negative Urine Blood Negative Urine Nitrite Negative Ur Leukocyte Esterase Small (1+) H Urine RBC 0-2 Urine WBC 0-5 Ur Squamous Epith Cells 0-2 Urine Bacteria None Seen Hyaline Casts 3-5 Assessment and Plan (1) Stroke: Qualifiers: Laterality of affected vessel: bilateral CVA mechanism: occlusion Precerebral and cerebral artery: carotid artery Qualified Code(s): I63.233 - Cerebral infarction due to unspecified occlusion or stenosis of bilateral carotid arteries Status: Acute (2) Carotid disease, bilateral: Qualifiers: Carotid artery disease type: occlusion Qualified Code(s): I65.23 - Occlusion and stenosis of bilateral carotid arteries Status: Acute (3) Fall: Qualifiers: Encounter type: initial encounter Qualified Code(s): W19.XXXA - Unspecified fall, initial encounter Status: Acute Plan Dunia Elliott is a 74 years old woman who presents with: Right parietal + internal capsule lacunar infarct, subacute. Telemetry. Continue Xarelto. At treatment with aspirin and high intensity statin. Neuro checks. Obtain TTE and brain MRI. Stroke education. Fall precautions. PT/OT eval and treatment. Recheck troponin. Neurologic consult. Left proximal ICA stenosis 75% + Right proximal ICA occlusion. Aspirin and high-intensity statin. Vascular surgery. Elevated LDL/hyperlipidemia. Start atorvastatin 80 mg p.o.. Essential hypertension. Continue amlodipine, lisinopril metoprolol. Polycythemia vera. Continue hydroxyurea. Continue to monitor platelets. Paroxysmal atrial fibrillation. Continue metoprolol and Xarelto. GERD. Continue omeprazole. Code status: Full DVT prophylaxis: On Xarelto Patient will need hospitalization for at least 2 midnights for stroke symptoms management with continuous neuro check, telemetry and evaluation by subspecialty. Quality Stroke Does the patient have a stroke diagnosis?: Yes Reason for No Anti-thrombotic by Day Two: N/A - Med Ordered VTE Prior VTE?: No VTE Risk Level:: Medical - moderate - high VTE Device Contraindication: Treatment Not Indicated VTE Drug Contraindication: N/A - Med Ordered
[2024-12-15] VITALS (7 sets, daily range): BP systolic 103–144; BP diastolic 51–69; PULSE 59–74; RESP 16–20; TEMP 36.4–36.9; O2SAT 95–100; BMI 24.4
[2024-12-15 00:01] LABS: Magnesium 1.9 mg/dL (1.6-2.6)
[2024-12-15] MEDS: Lactated Ringers 1,000 ML 999 ML IV (00:20)
[2024-12-15 08:32] LABS: MANUAL DIFF FLAG NO
[2024-12-15 08:35] LABS: Hematocrit 41.0 % (37.0-47.0); Hemoglobin 12.4 g/dl (12.0-16.0); Imm Gran Abs Auto 0.05 X10*3/uL (0.00-0.03); Imm Gran Pct Auto 0.6 % (0.0-0.4); Lymphocytes Absolute Auto 2.4 X10*3/uL (1.2-4.9); Mean Corpuscular HGB Conc 30.2 g/dl (31.0-35.0); Mean Corpuscular Hemoglobin 25.3 pg (27.0-33.0); Mean Corpuscular Volume 83.7 fL (80.0-98.0); NRBC Abs Auto 0.000 X10*3/uL (0.0-0.012); NRBC Pct Auto 0.0 /100WBC (0.0-0.2); Platelet Count 629 X10*3/uL (160-400); Red Blood Count 4.90 X10*6/uL (4.20-5.50); White Blood Count 8.9 X10*3/uL (4.8-10.8)
[2024-12-15 08:58] LABS: Anion Gap 12 (12-20); Blood Urea Nitrogen 18 mg/dL (9-16); Calcium 10.2 mg/dL (8.4-10.2); Carbon Dioxide 22 mmol/L (22-29); Chloride 107 mmol/L (96-108); Creatinine Clr Calc Pharmacy 48.5; Estimated Glomerular Filt Rate 56; Potassium 3.7 mmol/L (3.3-5.1); Sodium 137 mmol/L (135-145)
[2024-12-15 09:01] LABS: Cholesterol 152 mg/dL (<200); HDL Cholesterol 53 mg/dL (>40); Triglycerides 64 mg/dL (<150)
[2024-12-15 09:08] LABS: Troponin-I High Sensitivity 15.6 ng/L (<3.5-17.0)
--- NOTE | 2024-12-15 09:31 | PHA.MEDREC ---
Pharmacy Consult ? Medication Reconciliation Pharmacy has completed the medication reconciliation. Spoke to patient to confirm medication list. Per patient, she no longer takes vitamin D nor hydroxyurea. She confirmed she is still taking amlodipine 10 mg daily even though last fill was in june for 90 day supply, she takes amlodipine + lisinopril + metoprolol for blood pressure and she takes xarelto 20 mg daily. She takes linzess and temazepam prn. Last dose of medications was yesterday 12/14/24 pm.
--- NOTE | 2024-12-15 10:52 | MHC.CM.PN ---
IMM 12/15/24 DX CVA Lives alone She is independent with all functional mobility. No DME HCP on file. DP home self care. She will arrange for private transport home.
--- NOTE | 2024-12-15 15:00 | P.PNIM_ITS ---
Subjective Subjective Date of Service: 12/15/24 Interval History: Patient feels well today. Reports some coordination and perceptual deficits that are persistent. Reports some persistent weakness of the left upper extremity. Denies new dysphagia, expressive or receptive aphasia, upper or lower extremity hemiplegia or hemiparesis. No palpitations, dizziness diaphoresis, retrosternal chest pain. Review of Systems Review of Systems: Yes all other systems are reviewed and are negative Physical Exam 2 Exam: Exam: General: A&O x3, oriented to time place person and situation, comfortable, no pain Cardiac: S1, S2 auscultated with no S3/4, no MRG. Well perfused. Respiratory: Normal breath sounds auscultated throughout all lung zones, without wheezing, rales. Normal rate. GI/ : No abdominal pain on palpation, no masses or distentions. MSK: Normal ambulation without pain at bony prominences or musculature Neurological: - strength: * Left upper extremity 4/5 at the elbow * Remainder left upper extremity 5/5 * Right upper extremity 5/5 * Bilateral lower extremities 5/5 - sensation preserved throughout - coordination: [id number] testing left upper extremity reveals past- pointing. - cranial nerves normal 2-12 Vital Signs: Vital Signs: Last Vital Signs Temp 98.4 F 12/15/24 11:41 Pulse 61 12/15/24 11:41 Resp 18 12/15/24 11:41 BP 127/62 12/15/24 11:41 Pulse Ox 95 12/15/24 11:41 O2 Del Method Room Air 12/15/24 11:41 BMI result Body Mass Index 24.4 Objective Data Active Medications Acetaminophen (Acetaminophen 325 Mg Tablet) 975 mg PO Q6H PRN PRN Reason: Pain, Mild 1-3,fever,headache Last Admin: 12/15/24 09:23 Dose: 975 mg Documented By: DONTRELL Aspirin (Aspirin 81 Mg Tab.Chew) 162 mg PO DAILY [facility] Last Admin: 12/15/24 09:23 Dose: 162 mg Documented By: DONTRELL Atorvastatin Calcium (Atorvastatin Calcium 80 Mg Tablet) 80 mg PO BEDTIME PAYAL Calcium Carbonate (Calcium Carbonate 750 Mg Tab.Chew) 750 mg PO Q4H PRN PRN Reason: Heartburn Magnesium Hydroxide (Milk Of Magnesia 30 Ml Oral.Susp) 30 ml PO DAILY PRN PRN Reason: Constipation Ondansetron HCl (Ondansetron Hcl 4 Mg/2 Ml Vial) 4 mg IVPUSH Q8H PRN PRN Reason: Nausea and Vomiting Temazepam (Temazepam 15 Mg Capsule) 15 mg PO BEDTIME PRN PRN Reason: Insomnia Last Admin: 12/15/24 01:56 Dose: 15 mg Documented By: ARIELLE Labs 12/15/24 07:42 12/15/24 07:42 Labs: Laboratory Results - last 24 hr 12/14/24 12/14/24 12/14/24 19:10 19:12 21:20 MCV 83.0 MCH 25.6 L MCHC 30.9 L RDW 15.7 Plt Count 806 H MPV 8.8 L Immature Gran % (Auto) 0.8 H Neut % (Auto) 76.2 H Lymph % (Auto) 15.9 L [place] % (Auto) 5.8 Eos % (Auto) 0.6 Baso % (Auto) 0.7 Lymph # (Auto) 1.9 [place] # (Auto) 0.7 Eos # (Auto) 0.1 Baso # (Auto) 0.1 Abs Immat Gran (auto) 0.10 H Absolute Neuts (auto) 9.2 H Absolute Nucleated RBC 0.000 Nucleated RBC % (auto) 0.0 Hold Purple Top SEE NOTE PT 18.8 H INR 1.6 H APTT 36.4 H Anion Gap 12 Estim Creat Clear Calc 37.4 Estimated GFR 41 POC Glucose 126 H Random Glucose 116 H Calcium 11.5 H D Phosphorus 3.1 Magnesium 1.9 Total Bilirubin 1.4 H Direct Bilirubin 0.5 AST 22 ALT 11 Alkaline Phosphatase 60 Troponin I High Sens 3.5 D Total Protein 7.6 Albumin 4.4 Triglycerides 82 Cholesterol 194 LDL Cholesterol, Calc 113 H HDL Cholesterol 65 Hold Green Top See Note Urine Color Yellow Urine Appearance Clear Urine pH 5.5 Ur Specific [place] 1.025 Urine Protein Negative Urine Glucose (UA) Negative Urine Ketones Negative Urine Blood Negative Urine Nitrite Negative Ur Leukocyte Esterase Small (1+) H Urine RBC 0-2 Urine WBC 0-5 Ur Squamous Epith Cells 0-2 Urine Bacteria None Seen Hyaline Casts 3-5 12/15/24 07:42 MCV 83.7 MCH 25.3 L MCHC 30.2 L RDW 15.8 Plt Count 629 H MPV 9.0 L Immature Gran % (Auto) 0.6 H Neut % (Auto) 61.5 Lymph % (Auto) 27.3 [place] % (Auto) 8.1 Eos % (Auto) 1.6 Baso % (Auto) 0.9 Lymph # (Auto) 2.4 [place] # (Auto) 0.7 Eos # (Auto) 0.1 Baso # (Auto) 0.1 Abs Immat Gran (auto) 0.05 H Absolute Neuts (auto) 5.4 Absolute Nucleated RBC 0.000 Nucleated RBC % (auto) 0.0 Hold Purple Top PT INR APTT Anion Gap 12 Estim Creat Clear Calc 48.5 Estimated GFR 56 POC Glucose Random Glucose 86 Calcium 10.2 D Phosphorus Magnesium Total Bilirubin Direct Bilirubin AST ALT Alkaline Phosphatase Troponin I High Sens 15.6 D Total Protein Albumin Triglycerides 64 Cholesterol 152 LDL Cholesterol, Calc 87 HDL Cholesterol 53 Hold Green Top Urine Color Urine Appearance Urine pH Ur Specific [place] Urine Protein Urine Glucose (UA) Urine Ketones Urine Blood Urine Nitrite Ur Leukocyte Esterase Urine RBC Urine WBC Ur Squamous Epith Cells Urine Bacteria Hyaline Casts Microbiology Microbiology Results: Microbiology 12/14/24 22:15 Urine Culture - Preliminary Urine clean catch - Clean Catch Midstream No growth to date. Assessment and Plan (1) Paroxysmal atrial fibrillation: Status: Acute (2) Carotid disease, bilateral: Status: Acute (3) MPN (myeloproliferative neoplasm): Status: Acute (4) Polycythemia vera: Status: Acute (5) Stroke: Status: Acute (6) Myelopathic pain syndrome: Status: Acute Plan 74-year-old female, with a background history paroxysmal atrial fibrillation on rivaroxaban, polycythemia vera on hydroxyurea, HTN, presents with left upper extremity weakness, admitted with TIA in the setting of severe bilateral internal carotid artery stenosis. TIA Chronic small-vessel ischemic change Nonacute right parietal infarct Nonacute right internal capsule lacunar infarct Neurology recommendations greatly appreciated-consult placed MRI brain obtained: -ve for acute CVA Continue aspirin Continue high-dose statin Neuro checks q.6 hourly Cardiac telemetry PT/OT consult Severe bilateral carotid artery stenosis - Left ICA stenosis 75% - Right ICA occlusion Vascular surgery recommendations greatly appreciated Continue aspirin and high-intensity statin Polycythemia vera Thrombocytosis Continue anticoagulation with rivaroxaban Continue hydroxyurea For further complications, we will consult Hematology/Oncology Paroxysmal atrial fibrillation On anticoagulation-rivaroxaban Continue anticoagulation with rivaroxaban Continue and metoprolol for rate control GERD Continue omeprazole [facility] - VTE: Rivaroxaban - CODE STATUS: Full code - DIET: Regular Total time managing care of this patient today: 45 minutes. Quality Stroke Does the patient have a stroke diagnosis?: Yes Reason for No Anti-thrombotic by Day Two: N/A - Med Ordered VTE Prior VTE?: No VTE Risk Level:: Medical - moderate - high VTE Device Contraindication: Treatment Not Indicated VTE Drug Contraindication: N/A - Med Ordered
[2024-12-16 06:00] VITALS: BP 138/65; PULSE 63; RESP 16; TEMP 36.5; O2SAT 99
[2024-12-16 07:56] VITALS: BP 134/63; PULSE 66; RESP 18; TEMP 36.4; O2SAT 99
[2024-12-16] MEDS: Metoprolol Succinate ER 25 MG TAB.ER.24H PO (09:38)
--- NOTE | 2024-12-16 11:28 | PM.NEUROCN ---
History of Present Illness Data of Consult Service Date: 12/16/24 Primary Care Provider: Eloy Germain MD HPI Reason for consult: Carotid stenosis 74 years old woman with a past medical history significant for paroxysmal atrial fibrillation on Xarelto, polycythemia vera on hydroxyurea and essential hypertension presents to the emergency department complaining of left-sided weakness that started about a day before she came to emergency room. She initially noted problem with depth perception stating that there was spatial problem. When she was trying to strip picker something with right hand she was missing the target. Later she also noted left-sided weakness. There was no associated headache, dizziness, cold or flu-like illness, or chest pain. Initial head CT did not reveal any obvious acute lesion. CTA was performed that revealed critical stenosis or occlusion of right ICA and 75% on left side. A carotid ultrasound was done that provided same type of readings. Now she was feeling better. Review of Systems Review of Systems: Constitutional:?No fever, chills, fatigue, weight loss, or night sweats. HEENT:?No headache, vision changes, hearing loss, nasal congestion, sore throat. Cardiovascular:?No chest pain, palpitations, orthopnea, PND, or leg swelling. Respiratory:?No cough, shortness of breath, wheezing, or hemoptysis. Gastrointestinal:?No nausea, vomiting, abdominal pain, diarrhea, or constipation. Genitourinary:?No dysuria, frequency, incontinence, or hematuria. Musculoskeletal:?No joint pain, stiffness, weakness, or muscle aches. Neurological:?No dizziness, syncope, seizures, numbness, tingling, weakness, tremors, memory loss. Psychiatric:?No anxiety, depression, mood swings, sleep disturbance, or hallucinations. Endocrine:?No heat/cold intolerance, polydipsia, polyuria, or hair/skin changes. Hematologic/Lymphatic:?No easy bruising, bleeding, or lymphadenopathy. Integumentary (Skin):?No rash, lesions, itching, or color changes. Allergic/Immunologic:?No seasonal allergies, hives, or recurrent infections. [facility], [facility] Past Medical History Medical History Polycythemia vera Postoperative nausea Osteopenia Hx of Lyme disease GERD (gastroesophageal reflux disease) Paroxysmal atrial fibrillation HTN (hypertension) Persistent atrial fibrillation Family History Family History Father Cancer Stroke Mother Diabetes Surgical History Surgical History History of total right knee replacement History of esophagogastroduodenoscopy (EGD) Hx of section Hx of hysterectomy Hx of colonoscopy (~08/13/21) Hx of appendectomy Social History Social History Household Members: None Housing: House Are you a primary child care cook to a significant other at home: Yes ( with Alzheimer's and Parkinson's) Do you presently have visiting nurse or other home services: No Patient Tobacco Use Status: Never used Tobacco e-Cigarette/Vaping Use: Never Used Second Hand Smoke Exposure: No Advance Directives Date on File: 03/11/21 service: No Current occupational status: retired Current occupational exposures/hazards: No Cognitive needs: Yes (walker) Hearing needs: No Vision needs: Yes (Rx glasses) Meds Allergies Allergy/AdvReac Type Severity Reaction Status Date / Time diphenhydramine AdvReac Anxiety Verified 12/14/24 19:21 Active Medications: Current Medications Acetaminophen (Acetaminophen 325 Mg Tablet) 975 mg PO Q6H PRN PRN Reason: Pain, Mild 1-3,fever,headache Last Admin: 12/16/24 09:38 Dose: 975 mg Aspirin (Aspirin 81 Mg Tab.Chew) 162 mg PO DAILY [facility] Last Admin: 12/16/24 09:37 Dose: 162 mg Atorvastatin Calcium (Atorvastatin Calcium 80 Mg Tablet) 80 mg PO BEDTIME [facility]YAL Last Admin: 12/15/24 20:27 Dose: 80 mg Calcium Carbonate (Calcium Carbonate 750 Mg Tab.Chew) 750 mg PO Q4H PRN PRN Reason: Heartburn Folic Acid (Folic Acid 1 Mg Tablet) 1 mg PO DAILY [facility] Last Admin: 12/16/24 09:38 Dose: 1 mg Magnesium Hydroxide (Milk Of Magnesia 30 Ml Oral.Susp) 30 ml PO DAILY PRN PRN Reason: Constipation Metoprolol Succinate (Metoprolol Succinate Er 25 Mg Tab.Er.24h) 25 mg PO DAILY [facility]; Protocol Last Admin: 12/16/24 09:38 Dose: 25 mg Non-Formulary Medication (Linaclotide [Linzess]) 145 mcg PO DAILY PRN PRN Reason: Constipation Omeprazole (Omeprazole 40 Mg Capsule.Dr) 40 mg PO DAILY@0630 [facility] Last Admin: 12/16/24 06:00 Dose: 40 mg Ondansetron HCl (Ondansetron Hcl 4 Mg/2 Ml Vial) 4 mg IVPUSH Q8H PRN PRN Reason: Nausea and Vomiting Rivaroxaban (Rivaroxaban 20 Mg Tablet) 20 mg PO DAILY@1700 [facility] Last Admin: 12/15/24 17:37 Dose: 20 mg Temazepam (Temazepam 15 Mg Capsule) 15 mg PO BEDTIME PRN PRN Reason: Insomnia Last Admin: 12/15/24 22:16 Dose: 15 mg Home Medications ?Medication ?Instructions ?Recorded ?Confirmed ?Last Taken ?Type lisinopril 40 mg tablet 40 mg PO DAILY 03/10/21 12/15/24 12/14/24 History acetaminophen 325 mg tablet 975 mg PO Q8H PRN Pain 05/09/24 12/15/24 Unknown History amlodipine 10 mg tablet 10 mg PO DAILY 10/02/24 12/15/24 12/14/24 History rivaroxaban 20 mg tablet (Xarelto) 20 mg PO DAILY@1700 12/14/24 12/15/24 12/14/24 History linaclotide 145 mcg capsule 145 mcg PO DAILY PRN Constipation 12/15/24 12/15/24 Unknown History (Linzess) tobramycin 0.3 %-dexamethasone 0.1 1 drp ophthalmic-Left QID 12/15/24 12/15/24 12/14/24 History % eye drops,suspension Physical Exam Vital Signs: Vital Signs: Last Vital Signs Temp 97.6 F 12/16/24 07:56 Pulse 66 12/16/24 07:56 Resp 18 12/16/24 07:56 BP 134/63 12/16/24 07:56 Pulse Ox 99 12/16/24 07:56 O2 Del Method Room Air 12/16/24 07:56 BMI result Body Mass Index 24.4 Neuro: Other: Mental Status: Alert and oriented to person, place, and time. Normal attention. Normal spontaneous speech, fluency, and comprehension. No obvious issues with mood and memory. Affect is appropriate. Cranial Nerves: CN II: Visual kwong full to confrontation, visual acuity intact. CN III, IV, : Pupils equal, round, reactive to light and accommodation. Extraocular movements are normal. CN V: Facial sensation is normal. CN VII: Facial movements symmetrical. CN VIII: Hearing intact to bedside conversation is normal. CN IX, X: Palate elevates symmetrically. CN XI: Shoulder shrug and head turn symmetrical. CN XII: Tongue midline without atrophy or fasciculations. Motor: Bulk and tone normal in all extremities. No significant muscle weakness in arms and legs. No drift. Reflexes: Deep tendon reflexes 1+ and symmetric. Plantar response down-going bilaterally. Coordination: [id number] and [id number] testing normal. No dysmetria. Gait and Station: No obvious gait abnormality. No ataxia or instability. Extrapyramidal: Full facial expressions and blinking. No rigidity. Movements are appropriate with no tremor or abnormality. Speech: Normal; no dysarthria or tremor. Results Labs 12/15/24 07:42 12/15/24 07:42 Labs: CT angiography head and neck with contrast. 3D Postprocessing. Comparison: None provided Findings: Aortic arch and arch vessels are patent. Significant tortuosity of left common carotid artery. Atherosclerotic vascular disease at left carotid bifurcation and proximal left internal carotid artery resulting in 75% stenosis. More distally left internal carotid artery in the neck is unremarkable. There is atherosclerotic vascular disease at right carotid bifurcation with likely occlusion or near-complete occlusion at the origin of right internal carotid artery which reconstitutes more distally. Distal to the reconstitution no additional high-grade stenosis or occlusion but right internal carotid artery smaller than the left. Bilateral external carotid arteries and bilateral vertebral arteries are patent. Bilateral intracranial internal carotid arteries are patent with the right smaller than the left. Atherosclerotic vascular disease of cavernous and supraclinoid segments. Vertebral basilar junction is unremarkable and basilar artery enhances normally. Bilateral anterior, middle and posterior cerebral arteries are patent. No definite intracranial large vessel occlusion. No aneurysm. Lung apices clear. No acute fracture. Degenerative changes cervical spine. IMPRESSION: 1. CT angiography neck demonstrates 75% stenosis involving proximal left internal carotid artery and occlusion or near-complete occlusion of proximal right internal carotid artery which reconstitutes in the neck but is smaller than the left internal carotid artery. Catheter angiography should be considered. 2. No intracranial large vessel occlusion. CT angiography head and neck with contrast. 3D Postprocessing. Comparison: None provided Findings: Aortic arch and arch vessels are patent. Significant tortuosity of left common carotid artery. Atherosclerotic vascular disease at left carotid bifurcation and proximal left internal carotid artery resulting in 75% stenosis. More distally left internal carotid artery in the neck is unremarkable. There is atherosclerotic vascular disease at right carotid bifurcation with likely occlusion or near-complete occlusion at the origin of right internal carotid artery which reconstitutes more distally. Distal to the reconstitution no additional high-grade stenosis or occlusion but right internal carotid artery smaller than the left. Bilateral external carotid arteries and bilateral vertebral arteries are patent. Bilateral intracranial internal carotid arteries are patent with the right smaller than the left. Atherosclerotic vascular disease of cavernous and supraclinoid segments. Vertebral basilar junction is unremarkable and basilar artery enhances normally. Bilateral anterior, middle and posterior cerebral arteries are patent. No definite intracranial large vessel occlusion. No aneurysm. Lung apices clear. No acute fracture. Degenerative changes cervical spine. IMPRESSION: 1. CT angiography neck demonstrates 75% stenosis involving proximal left internal carotid artery and occlusion or near-complete occlusion of proximal right internal carotid artery which reconstitutes in the neck but is smaller than the left internal carotid artery. Catheter angiography should be considered. 2. No intracranial large vessel occlusion. Microbiology Microbiology Results: Microbiology 12/14/24 22:15 Urine clean catch - Clean Catch Midstream Urine Culture - Preliminary No growth to date. Assessment and Plan (1) Carotid stenosis, bilateral: Status: Acute 74 years old woman with underlying history of atrial fibrillation on anticoagulation came to hospital with new onset of spatial dysfunction while using right hand and left-sided weakness. CTA of brain revealed multiple bilateral chronic ischemic looking lesions in anterior posterior circulation, which could be explain based upon atrial fibrillation. She might have similar another such lesion. Vascular imaging revealed critical right internal carotid artery proximal area stenosis and moderate left. I recommend relatively urgent right carotid endarterectomy for management of right carotid disease and medical management for left side. In the meantime, her blood pressure medicines should be adjusted to avoid hypotension. Some of her symptoms might have been related to hypoperfusion. I also recommend a noncontrast MRI of brain to define any recent lesions. Procedures Date of Service Date of Service: 12/16/24
[2024-12-16 11:46] VITALS: BP 144/75; PULSE 72; RESP 18; TEMP 37.1; O2SAT 99
--- NOTE | 2024-12-16 15:02 | P.PNIM_ITS ---
Subjective Subjective Date of Service: 12/16/24 Interval History: No new complaints today. Reports no new hemiplegia, hemiparesis, lower extremity weakness. Reports persistence coordination issue that has not changed. Denies headaches. Discussed findings on carotid ultrasonography, revealing 80-99% stenosis of the right ICA, and 50-79% stenosis of the left ICA. Reviewed vascular surgery and Neurology recommendations-there input is greatly appreciated in her case. To be made NPO overnight, in anticipation for possible surgery tomorrow. Review of Systems Review of Systems: Yes all other systems are reviewed and are negative Physical Exam 2 Exam: Exam: General: A&O x3, oriented to time place person and situation, comfortable, no pain Cardiac: S1, S2 auscultated with no S3/4, no MRG. Well perfused. Respiratory: Normal breath sounds auscultated throughout all lung zones, without wheezing, rales. Normal rate. GI/ : No abdominal pain on palpation, no masses or distentions. MSK: Normal ambulation without pain at bony prominences or musculature Neurological: - strength: * Left upper extremity 4/5 at the elbow * Remainder left upper extremity 5/5 * Right upper extremity 5/5 * Bilateral lower extremities 5/5 - sensation preserved throughout - coordination: [id number] testing left upper extremity reveals past- pointing. - cranial nerves normal 2-12 Vital Signs: Vital Signs: Last Vital Signs Temp 98.7 F 12/16/24 11:46 Pulse 72 12/16/24 11:46 Resp 18 12/16/24 11:46 BP 144/75 H 12/16/24 11:46 Pulse Ox 99 12/16/24 11:46 O2 Del Method Room Air 12/16/24 11:46 BMI result Body Mass Index 24.4 Objective Data Active Medications Acetaminophen (Acetaminophen 325 Mg Tablet) 975 mg PO Q6H PRN PRN Reason: Pain, Mild 1-3,fever,headache Last Admin: 12/16/24 09:38 Dose: 975 mg Documented By: PANCHITO Aspirin (Aspirin 81 Mg Tab.Chew) 162 mg PO DAILY [facility] Last Admin: 12/16/24 09:37 Dose: 162 mg Documented By: PANCHITO Atorvastatin Calcium (Atorvastatin Calcium 80 Mg Tablet) 80 mg PO BEDTIME [facility] Last Admin: 12/15/24 20:27 Dose: 80 mg Documented By: ARIELLE Calcium Carbonate (Calcium Carbonate 750 Mg Tab.Chew) 750 mg PO Q4H PRN PRN Reason: Heartburn Folic Acid (Folic Acid 1 Mg Tablet) 1 mg PO DAILY [facility] Last Admin: 12/16/24 09:38 Dose: 1 mg Documented By: PANCHITO Magnesium Hydroxide (Milk Of Magnesia 30 Ml Oral.Susp) 30 ml PO DAILY PRN PRN Reason: Constipation Metoprolol Succinate (Metoprolol Succinate Er 25 Mg Tab.Er.24h) 25 mg PO DAILY [facility]; Protocol Last Admin: 12/16/24 09:38 Dose: 25 mg Documented By: PANCHITO Non-Formulary Medication (Linaclotide [Linzess]) 145 mcg PO DAILY PRN PRN Reason: Constipation Omeprazole (Omeprazole 40 Mg Capsule.Dr) 40 mg PO DAILY@0630 [facility] Last Admin: 12/16/24 06:00 Dose: 40 mg Documented By: ARIELLE Ondansetron HCl (Ondansetron Hcl 4 Mg/2 Ml Vial) 4 mg IVPUSH Q8H PRN PRN Reason: Nausea and Vomiting Rivaroxaban (Rivaroxaban 20 Mg Tablet) 20 mg PO DAILY@1700 [facility] Last Admin: 12/15/24 17:37 Dose: 20 mg Documented By: DONTRELL Temazepam (Temazepam 15 Mg Capsule) 15 mg PO BEDTIME PRN PRN Reason: Insomnia Last Admin: 12/15/24 22:16 Dose: 15 mg Documented By: ARIELLE Labs 12/15/24 07:42 12/15/24 07:42 Microbiology Microbiology Results: Microbiology 12/14/24 22:15 Urine Culture - Final Urine clean catch - Clean Catch Midstream Assessment and Plan (1) Paroxysmal atrial fibrillation: Status: Acute (2) Carotid disease, bilateral: Status: Acute (3) HTN (hypertension): Status: Acute (4) Adult failure to thrive: Status: Acute (5) Acute hypokalemia: Status: Acute (6) Hypomagnesemia: Status: Acute (7) MPN (myeloproliferative neoplasm): Status: Acute (8) Polycythemia vera: Status: Acute (9) Myelopathic pain syndrome: Status: Acute (10) Stroke: Status: Acute Plan 74-year-old female, with a background history paroxysmal atrial fibrillation on rivaroxaban, polycythemia vera on hydroxyurea, HTN, presents with left upper extremity weakness, admitted with TIA in the setting of severe bilateral internal carotid artery stenosis. Severe bilateral carotid artery stenosis - Left ICA stenosis 75% - Right ICA critical stenosis 80-99% Vascular surgery recommendations greatly appreciated Neurology recommendations greatly appreciated Carotid ultrasonography revealing critical stenosis of the right ICA. Requires urgent surgical intervention as per consult services. AGGRESSIVELY TREAT HYPOTENSION TO PREVENT ADVERSE NEUROVASCULAR EVENT PLAN - NPO midnight - continue aspirin - continue atorvastatin - continue rivaroxaban TIA Chronic small-vessel ischemic change Nonacute right parietal infarct Nonacute right internal capsule lacunar infarct Neurology recommendations greatly appreciated-consult placed MRA brain obtained: -ve for acute CVA Continue aspirin Continue high-dose statin Neuro checks q.6 hourly Cardiac telemetry PT/OT consult Polycythemia vera Thrombocytosis Continue anticoagulation with rivaroxaban Continue hydroxyurea For further complications, we will consult Hematology/Oncology Paroxysmal atrial fibrillation On anticoagulation-rivaroxaban Continue anticoagulation with rivaroxaban HOLD metoprolol for rate control, as may cause hypotension GERD Continue omeprazole QUALITY [facility] - VTE: Rivaroxaban - CODE STATUS: Full code - DIET: Regular Total time managing care of this patient today: 45 minutes. Quality Stroke Does the patient have a stroke diagnosis?: Yes Reason for No Anti-thrombotic by Day Two: N/A - Med Ordered VTE Prior VTE?: No VTE Risk Level:: Medical - moderate - high VTE Device Contraindication: Treatment Not Indicated VTE Drug Contraindication: N/A - Med Ordered
[2024-12-16 15:35] VITALS: BP 150/72; PULSE 58; RESP 18; TEMP 36.6; O2SAT 98
[2024-12-16 18:59] VITALS: BP 148/73; PULSE 61; RESP 16; TEMP 37; O2SAT 99
[2024-12-16 22:59] VITALS: BP 135/70; PULSE 58; RESP 16; TEMP 36.6; O2SAT 99
[2024-12-17 05:25] LABS: MANUAL DIFF FLAG NO
[2024-12-17 05:27] LABS: Hematocrit 42.2 % (37.0-47.0); Hemoglobin 12.7 g/dl (12.0-16.0); Imm Gran Abs Auto 0.04 X10*3/uL (0.00-0.03); Imm Gran Pct Auto 0.5 % (0.0-0.4); Lymphocytes Absolute Auto 2.6 X10*3/uL (1.2-4.9); Mean Corpuscular HGB Conc 30.1 g/dl (31.0-35.0); Mean Corpuscular Hemoglobin 25.3 pg (27.0-33.0); Mean Corpuscular Volume 84.1 fL (80.0-98.0); NRBC Abs Auto 0.000 X10*3/uL (0.0-0.012); NRBC Pct Auto 0.0 /100WBC (0.0-0.2); Platelet Count 630 X10*3/uL (160-400); Red Blood Count 5.02 X10*6/uL (4.20-5.50); White Blood Count 7.5 X10*3/uL (4.8-10.8)
[2024-12-17 05:37] LABS: INTERNATIONAL NORM RATIO 1.4 (0.9-1.1); Prothrombin Time 16.4 SEC (10.9-12.4)
[2024-12-17 05:40] LABS: Partial Thromboplastin Time 35.3 SEC (26.7-34.1)
[2024-12-17 05:51] LABS: Anion Gap 8 (12-20); Blood Urea Nitrogen 17 mg/dL (9-16); Calcium 9.7 mg/dL (8.4-10.2); Carbon Dioxide 27 mmol/L (22-29); Chloride 108 mmol/L (96-108); Creatinine Clr Calc Pharmacy 44.0; Estimated Glomerular Filt Rate 50; Potassium 4.2 mmol/L (3.3-5.1); Sodium 139 mmol/L (135-145)
[2024-12-17 06:45] VITALS: BP 128/61; PULSE 54; RESP 16; TEMP 36.3; O2SAT 100
--- NOTE | 2024-12-17 07:00 | CA_ITS ---
Transthoracic Echocardiogram Patient (Last, First, Middle): Dunia Elliott, Gender: Female Date of : 1950 Age: 74 Procedure Date: 12/17/2024 Procedure Type: Transthoracic Echocardiogram Location: [facility] [place] Height: 167.64 cm Weight: 68.49 kg BSA: 1.77 m2 Heart Rate: 55 bpm BP: 128 / 61 mmHg Scale Shooter: SB Referring MD: Shlomo Murphy MD Symptoms: Stroke Study Quality: Adequate ECG Rhythm: Bradycardia Conclusions: - Normal left ventricular size, thickness, systolic function, and wall motion. The visually estimated ejection fraction is between 55-60%. - E/E prime ratio is between 8 and 15 consistent with indeterminate filling pressures. - Normal right ventricular cavity size and systolic function. Findings Left Ventricle Normal left ventricular size, thickness, systolic function, and wall motion. The visually estimated ejection fraction is between 55-60%. Abnormal diastolic function is noted. Spectral Doppler is indicative of a pseudonormal filling pattern. E/E prime ratio is between 8 and 15 consistent with indeterminate filling pressures. Right Ventricle Normal right ventricular cavity size and systolic function. Atria The left atrium is normal in size. The right atrium is mildly dilated. Aortic Valve There is a normal trileaflet aortic valve. There is mild calcification of the aortic valve. There is no aortic valve stenosis. There is no aortic valve regurgitation. Mitral Valve Normal mitral valve structure and function. There is no mitral valve regurgitation. There is no mitral valve stenosis. Pulmonic Valve The pulmonic valve is likely normal. There is no pulmonic valve regurgitation. Tricuspid Valve Normal tricuspid valve structure. There is trace tricuspid valve regurgitation. Normal right atrial pressure. There is no evidence of pulmonary hypertension. Great Vessels All visible segments of the aorta are normal in size. The visualized portions of the pulmonary artery and branches are normal. Venous The inferior vena cava is normal in size and collapses greater than 50% with inspiration. Pericardium/Pleural There is no evidence of pericardial effusion. Prior Study Comparison No significant change compared to prior study dated: 05/22/2021. Measurements 2D Linear Measurements IVSd: 0.71 0.6-0.9/0.6-1.0 cm LVIDd: 3.88 3.9-5.3/4.2-5.9 cm LVIDd Index: 2.19 2.4-3.2/2.2-3.1 cm/m2 LVIDs: 2.79 2.0-3.6 cm LVPWd: 0.73 0.7-1.1 cm LA Diam: 3.40 2.7-3.8/3.0-4.0 cm LAIDs Index: 1.92 1.5-2.3 cm/m2 LV Mass: 94.96 67-162/88-224 g LV Mass Index: 53.65 43-95/49-115 g/m2 LVOT Diam: 2.00 3.0+(-)1.3 cm 2D Systolic Function EF 4C: 71.60 >55% EF 2C: 64.70 >55% EF BiP: 68.60 >55% Mitral Valve MV Pk E: 0.74 MV PK A: 0.49 MV Decel Time: 267.00 E/A: 1.50 E'Lateral: 5.66 E'Medial: 5.55 E/E' Med: 13.30 E/E' Lat: 13.00 PHT: 78.00 MVA PHT: 2.82 Decel [place]: 2.76 Aortic Valve AoV Pk Todd: 1.14 AoV Mn Todd: 0.70 AoV VTI: 0.24 AoV Pk Grad: 5.00 Aov Mn Grad: 2.00 MADISYN Cont.VTI: 3.03 LVOT LVOT Pk Todd: 1.10 LVOT Mn Todd: 0.65 LVOT VTI: 0.23 LVOT Pk Grad: 5.00 LVOT Mn Grad: 2.00 LVOT Diam: 2.00 LVOT Area: 3.14 Diastolic Function MV Pk E: 0.74 MV Pk A: 0.49 E/A: 1.50 E'Medial: 5.55 E/E' Med: 13.30 E' Laterial: 5.66 E/E' Lat: 13.00 Right Ventricle TAPSE (mm): 17.20 TVS' Todd: 11.00 Tricuspid Valve TR Pk Todd: 2.52 TR Pk Grad: 25.00 RA Press: 3.00 RVSP: 28.00 Great Vessels Aorta Sinus of Valsalva: 2.80 2.0-3.5 cm Ao Asc: 3.20 2.1-3.4 cm Pulmonary Veins Pulm Vein S/D 1.40 Pulmonary Valve PV Pk Todd: 0.67 Peak PV Grad: 2.00 Updated in Other Vendor System with Status of Final Jeremie Combs MD electronically signed on 12/18/2024 12:16:32 PM with status of Final
[2024-12-17 08:00] VITALS: BP 164/72; PULSE 58; RESP 19; TEMP 36.2; O2SAT 98
--- NOTE | 2024-12-17 09:04 | P.PNIM_ITS ---
Subjective Subjective Date of Service: 12/18/24 Interval History: Patient awaiting vascular input regarding her surgery Patient was quite frustrated regarding her NPO status-explained to the patient in detail regarding why we needed to be NPO Review of Systems Review of Systems: Yes all other systems are reviewed and are negative Physical Exam 2 Vital Signs: Vital Signs: Last Vital Signs Temp 97.2 F 12/17/24 08:00 Pulse 58 12/17/24 08:00 Resp 19 12/17/24 08:00 BP 164/72 H 12/17/24 08:00 Pulse Ox 98 12/17/24 08:00 O2 Del Method Room Air 12/17/24 08:00 BMI result Body Mass Index 24.4 GENERAL APPEARANCE: in no acute distress, pleasant. HEART: no murmurs, regular rate and rhythm. LUNGS: clear to auscultation bilaterally. ABDOMEN: soft, nontender. NEUROLOGIC: No gross deficits, AAO X 3 Objective Data Active Medications Acetaminophen (Acetaminophen 325 Mg Tablet) 975 mg PO Q6H PRN PRN Reason: Pain, Mild 1-3,fever,headache Last Admin: 12/17/24 06:19 Dose: 975 mg Documented By: VJ Aspirin (Aspirin 81 Mg Tab.Chew) 162 mg PO DAILY [facility] Last Admin: 12/16/24 09:37 Dose: 162 mg Documented By: PANCHITO Atorvastatin Calcium (Atorvastatin Calcium 80 Mg Tablet) 80 mg PO BEDTIME [facility] Last Admin: 12/16/24 21:14 Dose: 80 mg Documented By: JV Calcium Carbonate (Calcium Carbonate 750 Mg Tab.Chew) 750 mg PO Q4H PRN PRN Reason: Heartburn Folic Acid (Folic Acid 1 Mg Tablet) 1 mg PO DAILY [facility] Last Admin: 12/16/24 09:38 Dose: 1 mg Documented By: PANCHITO Magnesium Hydroxide (Milk Of Magnesia 30 Ml Oral.Susp) 30 ml PO DAILY PRN PRN Reason: Constipation Metoprolol Succinate (Metoprolol Succinate Er 25 Mg Tab.Er.24h) 25 mg PO DAILY [facility]; Protocol On Hold: 12/16/24 15:08 Last Admin: 12/16/24 09:38 Dose: 25 mg Documented By: PANCHITO Non-Formulary Medication (Linaclotide [Linzess]) 145 mcg PO DAILY PRN PRN Reason: Constipation Omeprazole (Omeprazole 40 Mg Capsule.) 40 mg PO DAILY@0630 [facility] Last Admin: 12/17/24 05:31 Dose: 40 mg Documented By: JV Ondansetron HCl (Ondansetron Hcl 4 Mg/2 Ml Vial) 4 mg IVPUSH Q8H PRN PRN Reason: Nausea and Vomiting Rivaroxaban (Rivaroxaban 20 Mg Tablet) 20 mg PO DAILY@1700 [facility] Last Admin: 12/16/24 17:36 Dose: 20 mg Documented By: PANCHITO Temazepam (Temazepam 15 Mg Capsule) 15 mg PO BEDTIME PRN PRN Reason: Insomnia Last Admin: 12/16/24 21:14 Dose: 15 mg Documented By: JV Labs 12/18/24 06:20 12/17/24 05:19 Labs: Laboratory Results - last 24 hr 12/17/24 12/17/24 05:19 05:20 MCV 84.1 MCH 25.3 L MCHC 30.1 L RDW 15.9 Plt Count 630 H MPV 8.8 L Immature Gran % (Auto) 0.5 H Neut % (Auto) 54.2 Lymph % (Auto) 34.0 [place] % (Auto) 8.2 Eos % (Auto) 2.3 Baso % (Auto) 0.8 Lymph # (Auto) 2.6 [place] # (Auto) 0.6 Eos # (Auto) 0.2 Baso # (Auto) 0.1 Abs Immat Gran (auto) 0.04 H Absolute Neuts (auto) 4.1 Absolute Nucleated RBC 0.000 Nucleated RBC % (auto) 0.0 PT 16.4 H INR 1.4 H APTT 35.3 H Anion Gap 8 L Estim Creat Clear Calc 44.0 Estimated GFR 50 Random Glucose 100 Calcium 9.7 Microbiology Microbiology Results: Microbiology 12/14/24 22:15 Urine Culture - Final Urine clean catch - Clean Catch Midstream Assessment and Plan (1) MPN (myeloproliferative neoplasm): Status: Acute Plan Pt is a 74-year-old female, with PMH of paroxysmal AFib on rivaroxaban, PV on hydroxyurea, HTN, presents with left upper extremity weakness, admitted with TIA in the setting of severe bilateral internal carotid artery stenosis to undergo unilateral CA stenosis. # Acute left upper extremity weakness, likely in the setting of TIA in a patient with b/l critical right RCA stenosis 80-99% and significant left ICA stenosis 75% Vascular surgery-patient to undergo vascular surgery tomorrow We will likely undergo unilateral carotid endarterectomy tomorrow and followed by contralateral stenosis surgery in outpatient settings 3-4 months down the line NPO from midnight #TIA #Chronic small-vessel ischemic change #Nonacute right parietal infarct #Nonacute right internal capsule lacunar infarct Stroke imaging noted chronic small-vessel ischemic changes, subacute right parietal infarct and right internal capsule lacunar infarct Secondary stroke prevention-continue aspirin statin and apixaban Continue do neuro checks Continue monitoring on telemetry PTOT #Polycythemia vera -chronic stable, continue hydroxyurea #Thrombocytosis- chronic stable, continue monitoring # Paroxysmal atrial fibrillation -continue rivaroxaban GERD-continue PPI DVT prophylaxis with apixaban Disposition: Ongoing hospitalization is required for close neurological monitoring and perioperative management as the patient awaits carotid endarterectomy for critical bilateral carotid artery stenosis. She remains at high risk for recurrent cerebrovascular events and requires continued telemetry, neuro checks, and coordination of care with vascular surgery. Hospitalization also allows for optimization of secondary stroke prevention, management of anticoagulation, and monitoring of her chronic hematologic conditions in the perioperative period. This note is constructed using voice recognition software. While every effort has been made to ensure accuracy, heater operator helper errors may have been included. Total time managing care of this patient today: 45 minutes. Quality Stroke Does the patient have a stroke diagnosis?: Yes Reason for No Anti-thrombotic by Day Two: N/A - Med Ordered VTE Prior VTE?: No VTE Risk Level:: Medical - moderate - high VTE Device Contraindication: Treatment Not Indicated VTE Drug Contraindication: N/A - Med Ordered
[2024-12-17 12:00] VITALS: BP 173/72; PULSE 50; RESP 17; TEMP 36.1; O2SAT 99
--- NOTE | 2024-12-17 13:26 | HO.WOUND ---
Wound Consult: Initial 74 yr old female admitted to [facility] on 12/14/24- See progress notes and H&P for detailed history. Wound consult placed for right arm skin tear. Patient agreeable to assessment and photo documentation. Patient with fall at home, sustained skin tear. Right forearm Etiology: skin tear Measurements: 0.5cm x 0.5cm x 0.1cm Wound Bed: moist red, partial skin flap nonviable Drainage / Odor: scant sanguineous Edges: ? open Christen wound: ? No Induration, Fluctuance or Warmth noted, bruising christen wound Pain: none Goals of Treatment: ? moist healing with xeroform Recommendations: Right forearm: cleanse with saline, apply xeroform, wrap with rolled gauze, change daily and PRN Re-consult wound care Nurse for wound deterioration or wound changes.
--- NOTE | 2024-12-17 14:27 | MHC.CM.PN ---
Per rounds, pt. is not ready to DC, she is scheduled for vascular surgical procedure tomorrow. PT rec. home PT services, referred and accepted by Mati VAZQUEZ.
[2024-12-17 15:50] VITALS: BP 130/72; PULSE 62; RESP 16; TEMP 36.5; O2SAT 96
[2024-12-17 19:27] VITALS: BP 140/70; PULSE 79; RESP 16; TEMP 36.2; O2SAT 98
[2024-12-17 23:06] VITALS: BP 144/68; PULSE 62; RESP 16; TEMP 36.2; O2SAT 99
[2024-12-18 03:20] VITALS: BP 136/68; PULSE 64; RESP 16; TEMP 36.6; O2SAT 99
--- NOTE | 2024-12-18 06:04 | PC.NURSE ---
Pt is currently NPO for surgery. Dr. Reis OK to give omepazole, but instructed not to give aspirin.
[2024-12-18 07:07] LABS: MANUAL DIFF FLAG NO
[2024-12-18 07:18] LABS: Hematocrit 40.9 % (37.0-47.0); Hemoglobin 12.3 g/dl (12.0-16.0); Imm Gran Abs Auto 0.04 X10*3/uL (0.00-0.03); Imm Gran Pct Auto 0.5 % (0.0-0.4); Lymphocytes Absolute Auto 2.2 X10*3/uL (1.2-4.9); Mean Corpuscular HGB Conc 30.1 g/dl (31.0-35.0); Mean Corpuscular Hemoglobin 25.4 pg (27.0-33.0); Mean Corpuscular Volume 84.3 fL (80.0-98.0); NRBC Abs Auto 0.000 X10*3/uL (0.0-0.012); NRBC Pct Auto 0.0 /100WBC (0.0-0.2); Platelet Count 640 X10*3/uL (160-400); Red Blood Count 4.85 X10*6/uL (4.20-5.50); White Blood Count 7.8 X10*3/uL (4.8-10.8)
[2024-12-18 07:58] VITALS: BP 139/72; PULSE 74; RESP 18; TEMP 36.3; O2SAT 98
--- NOTE | 2024-12-18 10:03 | P.CONGS_ITS ---
History of Present Illness Consult details Consult date: 12/18/24 Narrative: This is a very pleasant 74-year-old female with a history of AFib presented to the emergency department with left-sided weakness on the . It is unclear if it was left-sided weakness or more of difficulty grabbing objects. She reports that she had difficulty grabbing her walker. 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 At that time she had lost some weight and appears to be doing well since that time and has improved. She presented to the hospital with this generalized weakness, and appears to have some sort of right-sided weakness. Right side is near total occlusion on CT scan. Follow-up ultrasound demonstrates high-grade stenosis. Since admission has had no episodes. She has had a stress test April of 2023. Has had an echo done yesterday. Still pending cardiac evaluation. Review of Systems 2 Review of Systems: Yes all other systems are reviewed and are negative Constitutional: Constitutional: Reports no additional constitutional complaints ENT: Reports Normal hearing present Cardiovascular: Cardiovascular: Denies chest pain, Denies chest pain at rest, Denies chest pain with activity and Denies pedal edema Respiratory: Respiratory: Denies cough Gastrointestinal: Gastrointestinal: Denies abdominal pain Musculoskeletal: Musculoskeletal: Denies abnormal gait, Denies muscle cramps and Denies radiating pain into limb Integumentary/Breasts: Skin/Breast: Denies skin ulcer and Denies wounds Neurologic: Reports Normal hearing present and Denies abnormal gait Psychiatric: Psychiatric: Reports no additional psychiatric complaints PMFSH Past Medical History Medical History Polycythemia vera Postoperative nausea Osteopenia Hx of Lyme disease GERD (gastroesophageal reflux disease) Paroxysmal atrial fibrillation HTN (hypertension) Persistent atrial fibrillation Family History Family History Father Cancer Stroke Mother Diabetes Surgical History Surgical History History of total right knee replacement History of esophagogastroduodenoscopy (EGD) Hx of section Hx of hysterectomy Hx of colonoscopy (~08/13/21) Hx of appendectomy Social History Social History Household Members: None Housing: House Are you a primary animal care provider to a significant other at home: Yes ( with Alzheimer's and Parkinson's) Do you presently have visiting nurse or other home services: No Patient Tobacco Use Status: Never used Tobacco e-Cigarette/Vaping Use: Never Used Second Hand Smoke Exposure: No Advance Directives Date on File: 03/11/21 service: No Current occupational status: retired Current occupational exposures/hazards: No Cognitive needs: Yes (walker) Hearing needs: No Vision needs: Yes (Rx glasses) Meds Allergies Allergy/AdvReac Type Severity Reaction Status Date / Time diphenhydramine AdvReac Anxiety Verified 12/14/24 19:21 Active Medications: Current Medications Acetaminophen (Acetaminophen 325 Mg Tablet) 975 mg PO Q6H PRN PRN Reason: Pain, Mild 1-3,fever,headache Last Admin: 12/18/24 08:37 Dose: 975 mg Aspirin (Aspirin 81 Mg Tab.Chew) 162 mg PO DAILY [facility] Last Admin: 12/18/24 06:03 Dose: Not Given Atorvastatin Calcium (Atorvastatin Calcium 80 Mg Tablet) 80 mg PO BEDTIME [facility] Last Admin: 12/17/24 20:10 Dose: 80 mg Calcium Carbonate (Calcium Carbonate 750 Mg Tab.Chew) 750 mg PO Q4H PRN PRN Reason: Heartburn Folic Acid (Folic Acid 1 Mg Tablet) 1 mg PO DAILY [facility] Last Admin: 12/18/24 08:37 Dose: 1 mg Magnesium Hydroxide (Milk Of Magnesia 30 Ml Oral.Susp) 30 ml PO DAILY PRN PRN Reason: Constipation Metoprolol Succinate (Metoprolol Succinate Er 25 Mg Tab.Er.24h) 25 mg PO DAILY [facility]; Protocol On Hold: 12/16/24 15:08 Last Admin: 12/16/24 09:38 Dose: 25 mg Non-Formulary Medication (Linaclotide [Linzess]) 145 mcg PO DAILY PRN PRN Reason: Constipation Omeprazole (Omeprazole 40 Mg Capsule.Dr) 40 mg PO DAILY@0630 [facility] Last Admin: 12/18/24 06:02 Dose: 40 mg Ondansetron HCl (Ondansetron Hcl 4 Mg/2 Ml Vial) 4 mg IVPUSH Q8H PRN PRN Reason: Nausea and Vomiting Rivaroxaban (Rivaroxaban 20 Mg Tablet) 20 mg PO DAILY@1700 [facility] Last Admin: 12/17/24 16:46 Dose: 20 mg Temazepam (Temazepam 15 Mg Capsule) 15 mg PO BEDTIME PRN PRN Reason: Insomnia Last Admin: 12/17/24 21:19 Dose: 15 mg Home Medications ?Medication ?Instructions ?Recorded ?Confirmed ?Last Taken ?Type lisinopril 40 mg tablet 40 mg PO DAILY 03/10/2103/1012/14/24 History acetaminophen 325 mg tablet 975 mg PO Q8H PRN Pain 12/15/24 Unknown History amlodipine 10 mg tablet 10 mg PO DAILY 10/02/2403/1012/14/24 History rivaroxaban 20 mg tablet (Xarelto) 20 mg PO DAILY@1700 12/14/24 12/15/24 12/14/24 History linaclotide 145 mcg capsule 145 mcg PO DAILY PRN Const ipation 12/15/24 12/15/24 Unknown History (Guido) tobramycin 0.3 %-dexamethasone 0.1 1 drp ophthalmic-Le ft QID 12/15/24 12/15/24 12/14/24 History % eye drops,suspension Physical Exam 2 Vital Signs: Vital Signs: Last Vital Signs Temp 97.4 F 12/18/24 07:58 Pulse 74 12/18/24 07:58 Resp 18 12/18/24 07:58 BP 139/72 12/18/24 07:58 Pulse Ox 98 12/18/24 07:58 O2 Del Method Room Air 12/18/24 07:58 BMI result Body Mass Index 24.4 Const: General: cooperative, healthy appearing and comfortable O rientation/consciousness: oriented to person, oriented to place and oriented to time HEENT: Head: Yes normal to inspection Neck: Neck: Yes normal visual inspection Carotids: no bruits Chest: Chest palpation & inspection: normal inspection of the chest Resp: Effort & Inspection: normal respiratory effort and able to speak in complete sentences Auscultation: clear to auscultation bilaterally, no crackles, no rales, no rhonchi and no wheezes Cardio: Rate: regular rate Rhythm: regular rhythm Heart sounds: S1 normal heart sound present and S2 normal heart sound present Bruits: no carotid bruits Peripheral pulses: Peripheral pulses 2+ throughout GI: Inspection: Yes normal to inspection Skin: Wounds: no wounds Hair: normal Neuro: General: oriented to person, oriented to place and oriented to time Cranial nerves: Yes CN's II-XII intact bilaterally and Yes Normal hearing present Cognition (Neuro): normal cognition Motor exam (neuro): 5/5 motor strength present throughout Extrem: Other: venous exam: No significant superficial varicosities or spider telangiectasias, minimal edema General: No clubbing, No cyanosis and No edema Psych: Appearance: grossly normal Mental Status: mental status grossly normal Speech and movement: Normal speech and movement present Results Labs 12/18/24 06:20 12/17/24 05:19 Labs: Abnormal lab results 12/18/24 Range/Units 06:20 MCH 25.4 L (27.0-33.0) pg MCHC 30.1 L (31.0-35.0) g/dl RDW 16.1 H (11.0-16.0) % Plt Count 640 H (160-400) X10*3/uL MPV 9.2 L (9.4-12.3) fL Immature Gran % (Auto) 0.5 H (0.0-0.4) % Abs Immat Gran (auto) 0.04 H (0.00-0.03) X10*3/uL Short CBC 12/18/24 Range/Units 06:20 WBC 7.8 (4.8-10.8) X10*3/uL Hgb 12.3 (12.0-16.0) g/dl Hct 40.9 (37.0-47.0) % Plt Count 640 H (160-400) X10*3/uL Urine 12/14/24 Range/Units 21:20 Urine Color Yellow Urine Appearance Clear Urine pH 5.5 (5.0-9.0) Ur Specific [place] 1.025 (1.005-1.025) Urine Protein Negative (Neg-Trace) mg/dL Urine Glucose (UA) Negative (Negative) mg/dL All other labs normal. Imaging Additional studies: Right high-grade carotid stenosis. Left-sided 75% stenosis Assessment and Plan (1) Carotid stenosis, right: Status: Acute Plan In short patient has high-grade right carotid stenosis. Unclear if she is truly symptomatic from this but will require carotid endarterectomy. Neurology note appreciated do appreciate the urgency of this. I have taken the liberty of ordering an echo and cardiac risk stratification is pending. Once again unclear if this is a true TIA but we will plan for surgery this admission. Patient is currently on aspirin and high-dose statin. We will plan for surgery as soon as we get a clear picture of what is going on from a cardiac standpoint. Procedures Date of Service Date of Service: 12/18/24
[2024-12-18 11:36] VITALS: BP 147/82; PULSE 70; RESP 18; TEMP 36.8; O2SAT 98
--- NOTE | 2024-12-18 13:39 | PM.CNCAR ---
History of Present Illness History of Present Illness Date of Service: 12/18/24 Chief complaint: stroke, preop for CEA Narrative: 74-year-old female presenting with left-sided neurological symptoms and has been diagnosed with bilateral carotid stenosis. She has been considered for carotid endarterectomy. She has background history of atrial fibrillation and has been on Xarelto. In her day-to-day life she has no chest discomfort or shortness of breath. No previous history of coronary artery disease. She has polycythemia vera but hemoglobin currently is 12.3. Her platelet counts are elevated at 640,000. [facility] Past Medical History Medical History Polycythemia vera Postoperative nausea Osteopenia Hx of Lyme disease GERD (gastroesophageal reflux disease) Paroxysmal atrial fibrillation HTN (hypertension) Persistent atrial fibrillation Family History Family History Father Cancer Stroke Mother Diabetes Surgical History Surgical History History of total right knee replacement History of esophagogastroduodenoscopy (EGD) Hx of section Hx of hysterectomy Hx of colonoscopy (~08/13/21) Hx of appendectomy Social History Social History Household Members: None Housing: House Are you a primary field care manager to a significant other at home: Yes ( with Alzheimer's and Parkinson's) Do you presently have visiting nurse or other home services: No Patient Tobacco Use Status: Never used Tobacco e-Cigarette/Vaping Use: Never Used Second Hand Smoke Exposure: No Advance Directives Date on File: 03/11/21 service: No Current occupational status: retired Current occupational exposures/hazards: No Cognitive needs: Yes (walker) Hearing needs: No Vision needs: Yes (Rx glasses) Meds Allergies Allergy/AdvReac Type Severity Reaction Status Date / Time diphenhydramine AdvReac Anxiety Verified 12/14/24 19:21 Active Medications: Current Medications Acetaminophen (Acetaminophen 325 Mg Tablet) 975 mg PO Q6H PRN PRN Reason: Pain, Mild 1-3,fever,headache Last Admin: 12/18/24 08:37 Dose: 975 mg Aspirin (Aspirin 81 Mg Tab.Chew) 162 mg PO DAILY [facility] Last Admin: 12/18/24 06:03 Dose: Not Given Atorvastatin Calcium (Atorvastatin Calcium 80 Mg Tablet) 80 mg PO BEDTIME [facility] Last Admin: 12/17/24 20:10 Dose: 80 mg Calcium Carbonate (Calcium Carbonate 750 Mg Tab.Chew) 750 mg PO Q4H PRN PRN Reason: Heartburn Folic Acid (Folic Acid 1 Mg Tablet) 1 mg PO DAILY [facility] Last Admin: 12/18/24 08:37 Dose: 1 mg Magnesium Hydroxide (Milk Of Magnesia 30 Ml Oral.Susp) 30 ml PO DAILY PRN PRN Reason: Constipation Metoprolol Succinate (Metoprolol Succinate Er 25 Mg Tab.Er.24h) 25 mg PO DAILY [facility]; Protocol On Hold: 12/16/24 15:08 Last Admin: 12/16/24 09:38 Dose: 25 mg Non-Formulary Medication (Linaclotide [Linzess]) 145 mcg PO DAILY PRN PRN Reason: Constipation Omeprazole (Omeprazole 40 Mg Capsule.) 40 mg PO DAILY@0630 [facility] Last Admin: 12/18/24 06:02 Dose: 40 mg Ondansetron HCl (Ondansetron Hcl 4 Mg/2 Ml Vial) 4 mg IVPUSH Q8H PRN PRN Reason: Nausea and Vomiting Rivaroxaban (Rivaroxaban 20 Mg Tablet) 20 mg PO DAILY@1700 [facility] Last Admin: 12/17/24 16:46 Dose: 20 mg Temazepam (Temazepam 15 Mg Capsule) 15 mg PO BEDTIME PRN PRN Reason: Insomnia Last Admin: 12/17/24 21:19 Dose: 15 mg Home Medications ?Medication ?Instructions ?Recorded ?Confirmed ?Last Taken ?Type lisinopril 40 mg tablet 40 mg PO DAILY 03/10/21 12/15/24 12/14/24 History acetaminophen 325 mg tablet 975 mg PO Q8H PRN Pain 05/09/24 12/15/24 Unknown History amlodipine 10 mg tablet 10 mg PO DAILY 10/02/24 12/15/24 12/14/24 History rivaroxaban 20 mg tablet (Xarelto) 20 mg PO DAILY@1700 12/14/24 12/15/24 12/14/24 History linaclotide 145 mcg capsule 145 mcg PO DAILY PRN Constipation 12/15/24 12/15/24 Unknown History (Linzess) tobramycin 0.3 %-dexamethasone 0.1 1 drp ophthalmic-Left QID 12/15/24 12/15/24 12/14/24 History % eye drops,suspension Physical Exam Vital Signs: Vital Signs: Last Vital Signs Temp 98.2 F 12/18/24 11:36 Pulse 70 12/18/24 11:36 Resp 18 12/18/24 11:36 BP 147/82 H 12/18/24 11:36 Pulse Ox 98 12/18/24 11:36 O2 Del Method Room Air 12/18/24 11:36 BMI result Body Mass Index 24.4 GENERAL APPEARANCE: in no acute distress, pleasant. NECK: Left carotid bruit, no jugular venous distention. SKIN: no suspicious lesions, warm and dry. HEART: no murmurs, regular rate and rhythm. LUNGS: clear to auscultation bilaterally. ABDOMEN: soft, nontender. EXTREMITIES: no edema. PERIPHERAL PULSES: equal. NEUROLOGIC: No gross deficits, AAO X 3 Objective Labs and Meds 12/18/24 06:20 12/17/24 05:19 Lab results: Laboratory Results - last 24 hr 12/18/24 06:20 WBC 7.8 RBC 4.85 Hgb 12.3 Hct 40.9 MCV 84.3 MCH 25.4 L MCHC 30.1 L RDW 16.1 H Plt Count 640 H MPV 9.2 L Immature Gran % (Auto) 0.5 H Neut % (Auto) 61.0 Lymph % (Auto) 28.0 [place] % (Auto) 7.9 Eos % (Auto) 2.0 Baso % (Auto) 0.6 Lymph # (Auto) 2.2 [place] # (Auto) 0.6 Eos # (Auto) 0.2 Baso # (Auto) 0.1 Abs Immat Gran (auto) 0.04 H Absolute Neuts (auto) 4.8 Absolute Nucleated RBC 0.000 Nucleated RBC % (auto) 0.0 Assessment and Plan (1) Preoperative cardiovascular examination: Status: Acute Plan Pleasant 74 year lady with bilateral carotid stenosis who is being considered for carotid endarterectomy. We have been asked to assess her perioperative cardiovascular risk. She has no anginal symptoms. Clinically not in heart failure. Blood pressure control is reasonable. She is intermediate risk for perioperative complications. Echocardiography reviewed which is showing normal biventricular function. Thank you for allowing me to participate in the care of your patient. Please feel free to contact me if you have any questions. Procedures Date of Service Date of Service: 12/18/24
--- NOTE | 2024-12-18 14:58 | P.PNIM_ITS ---
Subjective Subjective Date of Service: 12/18/24 Interval History: Patient to undergo cardiac clearance Patient to undergo carotid endarterectomy tomorrow NPO from midnight We appreciate vascular surgery help with the care of the pt Review of Systems Review of Systems: Yes all other systems are reviewed and are negative Physical Exam 2 Vital Signs: Vital Signs: Last Vital Signs Temp 98.2 F 12/18/24 11:36 Pulse 70 12/18/24 11:36 Resp 18 12/18/24 11:36 BP 147/82 H 12/18/24 11:36 Pulse Ox 98 12/18/24 11:36 O2 Del Method Room Air 12/18/24 11:36 BMI result Body Mass Index 24.4 GENERAL APPEARANCE: in no acute distress, pleasant. HEART: no murmurs, regular rate and rhythm. LUNGS: clear to auscultation bilaterally. ABDOMEN: soft, nontender. NEUROLOGIC: No gross deficits, AAO X 3 Objective Data Active Medications Acetaminophen (Acetaminophen 325 Mg Tablet) 975 mg PO Q6H PRN PRN Reason: Pain, Mild 1-3,fever,headache Last Admin: 12/18/24 14:42 Dose: 975 mg Documented By: SHANA Aspirin (Aspirin 81 Mg Tab.Chew) 162 mg PO DAILY [facility] Last Admin: 12/18/24 06:03 Dose: Not Given Documented By: DIALLO Non-Admin Reason: Physician Held Med Atorvastatin Calcium (Atorvastatin Calcium 80 Mg Tablet) 80 mg PO BEDTIME [facility] Last Admin: 12/17/24 20:10 Dose: 80 mg Documented By: DIALLO Calcium Carbonate (Calcium Carbonate 750 Mg Tab.Chew) 750 mg PO Q4H PRN PRN Reason: Heartburn Folic Acid (Folic Acid 1 Mg Tablet) 1 mg PO DAILY [facility] Last Admin: 12/18/24 08:37 Dose: 1 mg Documented By: SHANA Magnesium Hydroxide (Milk Of Magnesia 30 Ml Oral.Susp) 30 ml PO DAILY PRN PRN Reason: Constipation Metoprolol Succinate (Metoprolol Succinate Er 25 Mg Tab.Er.24h) 25 mg PO DAILY [facility]; Protocol On Hold: 12/16/24 15:08 Last Admin: 12/16/24 09:38 Dose: 25 mg Documented By: PANCHITO Non-Formulary Medication (Linaclotide [Linzess]) 145 mcg PO DAILY PRN PRN Reason: Constipation Omeprazole (Omeprazole 40 Mg Capsule.Dr) 40 mg PO DAILY@0630 [facility] Last Admin: 12/18/24 06:02 Dose: 40 mg Documented By: DIALLO Ondansetron HCl (Ondansetron Hcl 4 Mg/2 Ml Vial) 4 mg IVPUSH Q8H PRN PRN Reason: Nausea and Vomiting Rivaroxaban (Rivaroxaban 20 Mg Tablet) 20 mg PO DAILY@1700 [facility] Last Admin: 12/17/24 16:46 Dose: 20 mg Documented By: SHANA Temazepam (Temazepam 15 Mg Capsule) 15 mg PO BEDTIME PRN PRN Reason: Insomnia Last Admin: 12/17/24 21:19 Dose: 15 mg Documented By: DIALLO Labs 12/18/24 06:20 12/17/24 05:19 Labs: Laboratory Results - last 24 hr 12/18/24 06:20 MCV 84.3 MCH 25.4 L MCHC 30.1 L RDW 16.1 H Plt Count 640 H MPV 9.2 L Immature Gran % (Auto) 0.5 H Neut % (Auto) 61.0 Lymph % (Auto) 28.0 [place] % (Auto) 7.9 Eos % (Auto) 2.0 Baso % (Auto) 0.6 Lymph # (Auto) 2.2 [place] # (Auto) 0.6 Eos # (Auto) 0.2 Baso # (Auto) 0.1 Abs Immat Gran (auto) 0.04 H Absolute Neuts (auto) 4.8 Absolute Nucleated RBC 0.000 Nucleated RBC % (auto) 0.0 Assessment and Plan (1) Paroxysmal atrial fibrillation: Status: Acute (2) Carotid disease, bilateral: Status: Acute (3) HTN (hypertension): Status: Acute (4) Adult failure to thrive: Status: Acute (5) Acute hypokalemia: Status: Acute (6) Hypomagnesemia: Status: Acute (7) MPN (myeloproliferative neoplasm): Status: Acute (8) Polycythemia vera: Status: Acute (9) Myelopathic pain syndrome: Status: Acute (10) Stroke: Status: Acute Plan Pt is a 74-year-old female, with PMH of paroxysmal AFib on rivaroxaban, PV on hydroxyurea, HTN, presents with left upper extremity weakness, admitted with TIA in the setting of severe bilateral internal carotid artery stenosis to undergo unilateral CA stenosis. # Acute left upper extremity weakness, likely in the setting of TIA in a patient with b/l critical right RCA stenosis 80-99% and significant left ICA stenosis 75% Vascular surgery-patient to undergo vascular surgery tomorrow We will likely undergo unilateral carotid endarterectomy tomorrow and followed by contralateral stenosis surgery in outpatient settings 3-4 months down the line NPO from midnight #TIA #Chronic small-vessel ischemic change #Nonacute right parietal infarct #Nonacute right internal capsule lacunar infarct Stroke imaging noted chronic small-vessel ischemic changes, subacute right parietal infarct and right internal capsule lacunar infarct Secondary stroke prevention-continue aspirin statin and apixaban Continue do neuro checks Continue monitoring on telemetry PTOT #Polycythemia vera -chronic stable, continue hydroxyurea #Thrombocytosis- chronic stable, continue monitoring # Paroxysmal atrial fibrillation -continue rivaroxaban GERD-continue PPI DVT prophylaxis with apixaban Disposition: Ongoing hospitalization is required for close neurological monitoring and perioperative management as the patient awaits carotid endarterectomy for critical bilateral carotid artery stenosis. She remains at high risk for recurrent cerebrovascular events and requires continued telemetry, neuro checks, and coordination of care with vascular surgery. Hospitalization also allows for optimization of secondary stroke prevention, management of anticoagulation, and monitoring of her chronic hematologic conditions in the perioperative period. This note is constructed using voice recognition software. While every effort has been made to ensure accuracy, seafood packer errors may have been included. Total time managing care of this patient today: 45 minutes. Quality Stroke Does the patient have a stroke diagnosis?: Yes Reason for No Anti-thrombotic by Day Two: N/A - Med Ordered VTE Prior VTE?: No VTE Risk Level:: Medical - moderate - high VTE Device Contraindication: Treatment Not Indicated VTE Drug Contraindication: N/A - Med Ordered
[2024-12-18 15:18] VITALS: BP 142/81; PULSE 68; RESP 18; TEMP 36.2; O2SAT 98
[2024-12-18 15:46] LABS: INR Whole Blood 1.6 (0.9-1.1); Prothrombin Time Whole Blood 19.0 sec (11.1-13.5)
[2024-12-18 19:46] VITALS: BP 167/69; PULSE 68; RESP 16; TEMP 37.2; O2SAT 97
[2024-12-18 20:20] VITALS: BP 142/80
[2024-12-19] VITALS (7 sets, daily range): BP systolic 115–174; BP diastolic 58–82; PULSE 65–76; RESP 18–20; TEMP 36.2–37.1; O2SAT 96–98
[2024-12-19 07:07] LABS: MANUAL DIFF FLAG NO
[2024-12-19 07:18] LABS: Hematocrit 41.0 % (37.0-47.0); Hemoglobin 12.3 g/dl (12.0-16.0); Imm Gran Abs Auto 0.05 X10*3/uL (0.00-0.03); Imm Gran Pct Auto 0.7 % (0.0-0.4); Lymphocytes Absolute Auto 2.5 X10*3/uL (1.2-4.9); Mean Corpuscular HGB Conc 30.0 g/dl (31.0-35.0); Mean Corpuscular Hemoglobin 25.2 pg (27.0-33.0); Mean Corpuscular Volume 84.0 fL (80.0-98.0); NRBC Abs Auto 0.000 X10*3/uL (0.0-0.012); NRBC Pct Auto 0.0 /100WBC (0.0-0.2); Platelet Count 643 X10*3/uL (160-400); Red Blood Count 4.88 X10*6/uL (4.20-5.50); White Blood Count 7.3 X10*3/uL (4.8-10.8)
--- NOTE | 2024-12-19 07:20 | HO.PM.IMPN ---
Subjective Subjective Date of Service: 12/19/24 Interval History: Patient underwent cardiac clearance Patient to undergo carotid endarterectomy tomorrow NPO from midnight We appreciate vascular surgery help with the care of the pt Review of Systems Review of Systems: Yes all other systems are reviewed and are negative Physical Exam Vital Signs: Vital Signs: Last Vital Signs Temp 97.1 F 12/19/24 04:00 Pulse 65 12/19/24 04:00 Resp 20 12/19/24 04:00 BP 137/64 12/19/24 04:00 Pulse Ox 98 12/19/24 04:00 O2 Del Method Room Air 12/19/24 04:00 BMI result Body Mass Index 24.4 GENERAL APPEARANCE: in no acute distress, pleasant. HEART: no murmurs, regular rate and rhythm. LUNGS: clear to auscultation bilaterally. ABDOMEN: soft, nontender. NEUROLOGIC: No gross deficits, AAO X 3 Objective Data Active Medications Acetaminophen (Acetaminophen 325 Mg Tablet) 975 mg PO Q6H PRN PRN Reason: Pain, Mild 1-3,fever,headache Last Admin: 12/18/24 20:47 Dose: 975 mg Documented By: DIALLO Aspirin (Aspirin 81 Mg Tab.Chew) 162 mg PO DAILY [facility] Last Admin: 12/19/24 05:25 Dose: Not Given Documented By: DIALLO Non-Admin Reason: Physician Held Med Atorvastatin Calcium (Atorvastatin Calcium 80 Mg Tablet) 80 mg PO BEDTIME [facility] Last Admin: 12/18/24 20:48 Dose: 80 mg Documented By: DIALLO Calcium Carbonate (Calcium Carbonate 750 Mg Tab.Chew) 750 mg PO Q4H PRN PRN Reason: Heartburn Folic Acid (Folic Acid 1 Mg Tablet) 1 mg PO DAILY [facility] Last Admin: 12/18/24 08:37 Dose: 1 mg Documented By: SHANA Magnesium Hydroxide (Milk Of Magnesia 30 Ml Oral.Susp) 30 ml PO DAILY PRN PRN Reason: Constipation Metoprolol Succinate (Metoprolol Succinate Er 25 Mg Tab.Er.24h) 25 mg PO DAILY [facility]; Protocol On Hold: 12/16/24 15:08 Last Admin: 12/16/24 09:38 Dose: 25 mg Documented By: PANCHITO Non-Formulary Medication (Linaclotide [Linzess]) 145 mcg PO DAILY PRN PRN Reason: Constipation Omeprazole (Omeprazole 40 Mg Capsule.) 40 mg PO DAILY@0630 [facility] Last Admin: 12/19/24 05:47 Dose: 40 mg Documented By: DIALLO Ondansetron HCl (Ondansetron Hcl 4 Mg/2 Ml Vial) 4 mg IVPUSH Q8H PRN PRN Reason: Nausea and Vomiting Rivaroxaban (Rivaroxaban 20 Mg Tablet) 20 mg PO DAILY@1700 [facility] Last Admin: 12/18/24 17:21 Dose: 20 mg Documented By: SHANA Temazepam (Temazepam 15 Mg Capsule) 15 mg PO BEDTIME PRN PRN Reason: Insomnia Last Admin: 12/18/24 20:48 Dose: 15 mg Documented By: DIALLO Labs 12/19/24 07:02 12/17/24 05:19 Labs: Laboratory Results - last 24 hr 12/14/24 12/19/24 19:10 07:02 MCV 84.0 MCH 25.2 L MCHC 30.0 L RDW 15.9 Plt Count 643 H MPV 8.7 L Immature Gran % (Auto) 0.7 H Neut % (Auto) 55.9 Lymph % (Auto) 33.6 [place] % (Auto) 6.5 Eos % (Auto) 2.5 Baso % (Auto) 0.8 Lymph # (Auto) 2.5 [place] # (Auto) 0.5 Eos # (Auto) 0.2 Baso # (Auto) 0.1 Abs Immat Gran (auto) 0.05 H Absolute Neuts (auto) 4.1 Absolute Nucleated RBC 0.000 Nucleated RBC % (auto) 0.0 PT (Fingerstick) 19.0 H INR (Fingerstick) 1.6 H Assessment and Plan (1) Carotid disease, bilateral: Status: Acute Plan Pt is a 74-year-old female, with PMH of paroxysmal AFib on rivaroxaban, PV on hydroxyurea, HTN, presents with left upper extremity weakness, admitted with TIA in the setting of severe bilateral internal carotid artery stenosis to undergo unilateral CA stenosis. # Acute left upper extremity weakness, likely in the setting of TIA in a patient with b/l critical right RCA stenosis 80-99% and significant left ICA stenosis 75% Vascular surgery-patient to undergo vascular surgery tomorrow- was postponed today based on logistics of OR We will likely undergo unilateral carotid endarterectomy tomorrow and followed by contralateral stenosis surgery in outpatient settings 3-4 months down the line NPO from midnight #TIA #Chronic small-vessel ischemic change #Nonacute right parietal infarct #Nonacute right internal capsule lacunar infarct Stroke imaging noted chronic small-vessel ischemic changes, subacute right parietal infarct and right internal capsule lacunar infarct Secondary stroke prevention-continue aspirin statin and apixaban Continue do neuro checks Continue monitoring on telemetry PTOT #Polycythemia vera -chronic stable, continue hydroxyurea #Thrombocytosis- chronic stable, continue monitoring # Paroxysmal atrial fibrillation -continue rivaroxaban GERD-continue PPI DVT prophylaxis with apixaban Disposition: Ongoing hospitalization is required for close neurological monitoring and perioperative management as the patient awaits carotid endarterectomy for critical bilateral carotid artery stenosis. She remains at high risk for recurrent cerebrovascular events and requires continued telemetry, neuro checks, and coordination of care with vascular surgery. Hospitalization also allows for optimization of secondary stroke prevention, management of anticoagulation, and monitoring of her chronic hematologic conditions in the perioperative period. This note is constructed using voice recognition software. While every effort has been made to ensure accuracy, memorial counselor errors may have been included. Total time managing care of this patient today: 45 minutes. Quality Stroke Does the patient have a stroke diagnosis?: Yes Reason for No Anti-thrombotic by Day Two: N/A - Med Ordered VTE Prior VTE?: No VTE Risk Level:: Medical - moderate - high VTE Device Contraindication: Treatment Not Indicated VTE Drug Contraindication: N/A - Med Ordered
--- NOTE | 2024-12-19 11:40 | HO.VASCPN ---
Subjective Subjective Date of Service: 12/19/24 Patient reports: no new complaints Interval history: Patient seen and examined. No significant events overnight. Tolerating a regular diet. Has seen Cardiology yesterday. Now for follow-up. Physical Exam Vital Signs: Vital Signs: Last Vital Signs Temp 98.8 F 12/19/24 11:32 Pulse 76 12/19/24 11:32 Resp 18 12/19/24 11:32 BP 129/60 12/19/24 11:32 Pulse Ox 97 12/19/24 11:32 O2 Del Method Room Air 12/19/24 11:32 BMI result Body Mass Index 24.4 Const: General: cooperative, healthy appearing and comfortable Orientation/consciousness: oriented to person, oriented to place and oriented to time HEENT: Head: Yes normal to inspection Neck: Neck: Yes normal visual inspection Carotids: no bruits Chest: Chest palpation & inspection: normal inspection of the chest Resp: Effort & Inspection: normal respiratory effort and able to speak in complete sentences Auscultation: clear to auscultation bilaterally, no crackles, no rales, no rhonchi and no wheezes Cardio: Rate: regular rate Rhythm: regular rhythm Heart sounds: S1 normal heart sound present and S2 normal heart sound present Bruits: no carotid bruits Peripheral pulses: Peripheral pulses 2+ throughout GI: Inspection: Yes normal to inspection Skin: Wounds: no wounds Hair: normal Neuro: General: oriented to person, oriented to place and oriented to time Cranial nerves: Yes CN's II-XII intact bilaterally and Yes Normal hearing present Cognition (Neuro): normal cognition Motor exam (neuro): 5/5 motor strength present throughout Extrem: Other: venous exam: No significant superficial varicosities or spider telangiectasias, minimal edema General: No clubbing, No cyanosis and No edema Psych: Appearance: grossly normal Mental Status: mental status grossly normal Speech and movement: Normal speech and movement present Progress Note: A&P Assessment and plan (1) Carotid stenosis, right: Status: Acute Assessment and Plan: In short patient has high-grade right carotid stenosis. This may be the source of her TIA episode. She has undergone cardiac risk stratification and has been deemed intermediate risk for perioperative complications. She will require right carotid endarterectomy. Risks benefits complications of the surgery were discussed in detail with the patient. She understood and consented. We will place her on the add on schedule for tomorrow. Thank you for allowing us to assist in her care. Time Spent With Patient Time: Total time managing care of this patient today ____ minutes. Procedures Date of Service Date of Service: 12/19/24 Quality Stroke Does the patient have a stroke diagnosis?: Yes Reason for No Anti-thrombotic by Day Two: N/A - Med Ordered VTE Prior VTE?: No VTE Risk Level:: Medical - moderate - high VTE Device Contraindication: Treatment Not Indicated VTE Drug Contraindication: N/A - Med Ordered
[2024-12-19 12:18] LABS: VITAMIN D (1,25 OH) D3 16 pg/mL; Vit D (1,25-Dihydroxy) Total 16 pg/mL (18-72); Vitamin D (1,25 OH) D2 <8 pg/mL
--- NOTE | 2024-12-19 13:49 | MHC.CM.PN ---
Pt not ready to DC, vascular surgery scheduled for tomorrow.
[2024-12-20] VITALS (22 sets, daily range): BP systolic 116–205; BP diastolic 55–95; PULSE 63–89; RESP 11–21; TEMP 36.1–37; O2SAT 98–100
[2024-12-20 07:21] LABS: MANUAL DIFF FLAG NO
[2024-12-20 07:29] LABS: Hematocrit 42.0 % (37.0-47.0); Hemoglobin 12.8 g/dl (12.0-16.0); Imm Gran Abs Auto 0.04 X10*3/uL (0.00-0.03); Imm Gran Pct Auto 0.5 % (0.0-0.4); Lymphocytes Absolute Auto 2.6 X10*3/uL (1.2-4.9); Mean Corpuscular HGB Conc 30.5 g/dl (31.0-35.0); Mean Corpuscular Hemoglobin 25.5 pg (27.0-33.0); Mean Corpuscular Volume 83.8 fL (80.0-98.0); NRBC Abs Auto 0.000 X10*3/uL (0.0-0.012); NRBC Pct Auto 0.0 /100WBC (0.0-0.2); Platelet Count 668 X10*3/uL (160-400); Red Blood Count 5.01 X10*6/uL (4.20-5.50); White Blood Count 8.4 X10*3/uL (4.8-10.8)
--- NOTE | 2024-12-20 11:20 | MHC.SHP ---
Pre-Procedural Eval Section A - 24 Hr Update-Section A only Date of Service: 12/20/24 The patient is an INPATIENT: Yes Changes since office visit: Yes Patient answered all questions The patient has been examined within 24 hours of the surgical procedure. The History & Physical has been completed within 30 days and I have reviewed it.: Yes Section B - Complete if H&P > 30 days Chief Complaint: stroke, preop for CEA Allergies: Allergies Allergy/AdvReac Type Severity Reaction Status Date / Time diphenhydramine AdvReac Anxiety Verified 12/14/24 19:21 Plan I have reviewed the history and physical and performed a pertinent physical examination on my patient. No changes have occurred unless specified. Time Spent With Patient Time: Total time managing care of this patient today ____ minutes.
--- NOTE | 2024-12-20 13:48 | P.CONAN_ITS ---
Documented by User: Mikayla Lehman NP 12/19/24 09:16 HPI - Anesthesia Eval Consult details Narrative: 74 yr old female for carotid endardectomy Came to [facility] ED 12/14/24 with new onset spatial dysfunction: Seen by neuro Vascular imaging revealed critical right internal carotid artery proximal area stenosis and moderate left. I recommend relatively urgent right carotid endarterectomy for management of right carotid disease and medical management for left side [facility] inpt cardiology consult, Dr. Combs 12/18/24: She has no anginal symptoms. Clinically not in heart failure. Blood pressure control is reasonable. She is intermediate risk for perioperative complications. Echocardiography reviewed which is showing normal biventricular function (see below). Afib: follows [facility] cardiology, on Xarelto Polycythemia vera vs thombocytosis vs myleoproliferative neoplasm: following with [facility] hem/onc, had [facility] consult; previously on hydroxyurea, med was stopped when inpt in [place]. If platelets are >100K, hem/onc will restart urea, currently 600K PMFSH Active Problems Active Problems: All Active Problems Carotid stenosis, right (Acute) Carotid disease, bilateral (Acute) Acute coccygeal pain (Acute) Acute chest wall pain (Acute) Carotid stenosis, bilateral (Acute) Closed head injury (Acute) Fall (Acute) Stroke (Acute) MPN (myeloproliferative neoplasm) (Acute) Neuralgia and neuritis (Acute) Myelopathic pain syndrome (Acute) Hospital discharge follow-up (Acute) Physical deconditioning (Acute) Duodenal ulcer (Acute) Recurrent UTI (Acute) Cystitis (Acute) Intractable nausea (Acute) [place]-vesical fistula (Acute) Diverticulitis large intestine (Acute) Hypercalcemia (Acute) Hypomagnesemia (Acute) Adult failure to thrive (Acute) Acute hypokalemia (Acute) Preoperative cardiovascular examination (Acute) Valgus deformity, not elsewhere classified, right knee (Acute) Left rotator cuff tear arthropathy (Acute) Polycythemia vera (Acute) HTN (hypertension) (Acute) Paroxysmal atrial fibrillation (Acute) Past Medical History Medical History Polycythemia vera Postoperative nausea Osteopenia Hx of Lyme disease GERD (gastroesophageal reflux disease) Paroxysmal atrial fibrillation HTN (hypertension) Persistent atrial fibrillation Family History Family History Father Cancer Stroke Mother Diabetes Family history of problems with anesthesia: No Surgical History Surgical History History of total right knee replacement History of esophagogastroduodenoscopy (EGD) Hx of section Hx of hysterectomy Hx of colonoscopy (~08/13/21) Hx of appendectomy History of Problems with Anesthesia: No Social History Social History Household Members: None Housing: House Are you a primary child adolescent care to a significant other at home: Yes ( with Alzheimer's and Parkinson's) Do you presently have visiting nurse or other home services: No Comment: pt refused bed alarm but has been calling nurses every time she gets OOB Patient Tobacco Use Status: Never used Tobacco e-Cigarette/Vaping Use: Never Used Second Hand Smoke Exposure: No Advance Directives Date on File: 03/11/21 service: No Current occupational status: retired Current occupational exposures/hazards: No Cognitive needs: Yes (walker) Hearing needs: No Vision needs: Yes (Rx glasses) Meds Allergies Allergy/AdvReac Type Severity Reaction Status Date / Time diphenhydramine AdvReac Anxiety Verified 12/14/24 19:21 Active Medications: Current Medications Acetaminophen (Acetaminophen 325 Mg Tablet) 975 mg PO Q6H PRN PRN Reason: Pain, Mild 1-3,fever,headache Last Admin: 12/19/24 09:02 Dose: 975 mg Aspirin (Aspirin 81 Mg Tab.Chew) 162 mg PO DAILY [facility] Last Admin: 12/19/24 05:25 Dose: Not Given Atorvastatin Calcium (Atorvastatin Calcium 80 Mg Tablet) 80 mg PO BEDTIME [facility] Last Admin: 12/18/24 20:48 Dose: 80 mg Calcium Carbonate (Calcium Carbonate 750 Mg Tab.Chew) 750 mg PO Q4H PRN PRN Reason: Heartburn Folic Acid (Folic Acid 1 Mg Tablet) 1 mg PO DAILY [facility] Last Admin: 12/19/24 09:02 Dose: 1 mg Magnesium Hydroxide (Milk Of Magnesia 30 Ml Oral.Susp) 30 ml PO DAILY PRN PRN Reason: Constipation Metoprolol Succinate (Metoprolol Succinate Er 25 Mg Tab.Er.24h) 25 mg PO DAILY [facility]; Protocol On Hold: 12/16/24 15:08 Last Admin: 12/16/24 09:38 Dose: 25 mg Non-Formulary Medication (Linaclotide [Linzess]) 145 mcg PO DAILY PRN PRN Reason: Constipation Omeprazole (Omeprazole 40 Mg Capsule.Dr) 40 mg PO DAILY@0630 [facility] Last Admin: 12/19/24 05:47 Dose: 40 mg Ondansetron HCl (Ondansetron Hcl 4 Mg/2 Ml Vial) 4 mg IVPUSH Q8H PRN PRN Reason: Nausea and Vomiting Rivaroxaban (Rivaroxaban 20 Mg Tablet) 20 mg PO DAILY@1700 [facility] Last Admin: 12/18/24 17:21 Dose: 20 mg Temazepam (Temazepam 15 Mg Capsule) 15 mg PO BEDTIME PRN PRN Reason: Insomnia Last Admin: 12/18/24 20:48 Dose: 15 mg Home Medications ?Medication ?Instructions ?Recorded ?Confirmed ?Last Taken ?Type lisinopril 40 mg tablet 40 mg PO DAILY 03/10/210 03/1012/14/24 History acetaminophen 325 mg tablet 975 mg PO Q8H PRN Pain 12/15/24 Unknown History amlodipine 10 mg tablet 10 mg PO DAILY 10/02/2403/1012/14/24 History rivaroxaban 20 mg tablet (Xarelto) 20 mg PO DAILY@1700 12/14/24 12/15/24 12/14/24 History linaclotide 145 mcg capsule 145 mcg PO DAILY PRN Const ipation 12/15/24 12/15/24 Unknown History (Linzess) tobramycin 0.3 %-dexamethasone 0.1 1 drp ophthalmic-Le ft QID 12/15/24 12/15/24 12/14/24 History % eye drops,suspension Exam Height,Weight and Vital Signs: Height 5 ft 6 in Weight 68.7 kg Last Vital Signs Temp 97.6 F 12/19/24 08:00 Pulse 74 12/19/24 08:00 Resp 18 12/19/24 08:00 BP 174/76 H 12/19/24 08:00 Pulse Ox 96 12/19/24 08:00 O2 Del Method Room Air 12/19/24 08:00 Pertinent Lab Results Pertinent Lab Results: Laboratory Tests 12/14/24 12/14/24 12/14/24 19:10 19:12 21:20 WBC 12.1 H RBC 5.46 Hgb 14.0 Hct 45.3 MCV 83.0 MCH 25.6 L MCHC 30.9 L RDW 15.7 Plt Count 806 H MPV 8.8 L Immature Gran % (Auto) 0.8 H Neut % (Auto) 76.2 H Lymph % (Auto) 15.9 L [place] % (Auto) 5.8 Eos % (Auto) 0.6 Baso % (Auto) 0.7 Lymph # (Auto) 1.9 [place] # (Auto) 0.7 Eos # (Auto) 0.1 Baso # (Auto) 0.1 Abs Immat Gran (auto) 0.10 H Absolute Neuts (auto) 9.2 H Absolute Nucleated RBC 0.000 Nucleated RBC % (auto) 0.0 Hold Purple Top SEE NOTE PT (Fingerstick) 19.0 H PT 18.8 H INR (Fingerstick) 1.6 H INR 1.6 H APTT 36.4 H Sodium 137 Potassium 4.0 Chloride 107 Carbon Dioxide 22 Anion Gap 12 BUN 24 H Creatinine 1.27 Estim Creat Clear Calc 37.4 Estimated GFR 41 POC Glucose 126 H Random Glucose 116 H Calcium 11.5 H D Phosphorus 3.1 Magnesium 1.9 Total Bilirubin 1.4 H Direct Bilirubin 0.5 AST 22 ALT 11 Alkaline Phosphatase 60 Troponin I High Sens 3.5 D Total Protein 7.6 Albumin 4.4 Triglycerides 82 Cholesterol 194 LDL Cholesterol, Calc 113 H HDL Cholesterol 65 Hold Green Top See Note Urine Color Yellow Urine Appearance Clear Urine pH 5.5 Ur Specific [place] 1.025 Urine Protein Negative Urine Glucose (UA) Negative Urine Ketones Negative Urine Blood Negative Urine Nitrite Negative Ur Leukocyte Esterase Small (1+) H Urine RBC 0-2 Urine WBC 0-5 Ur Squamous Epith Cells 0-2 Urine Bacteria None Seen Hyaline Casts 3-5 12/15/24 12/17/24 12/17/24 07:42 05:19 05:20 WBC 8.9 7.5 RBC 4.90 5.02 Hgb 12.4 12.7 Hct 41.0 42.2 MCV 83.7 84.1 MCH 25.3 L 25.3 L MCHC 30.2 L 30.1 L RDW 15.8 15.9 Plt Count 629 H 630 H MPV 9.0 L 8.8 L Immature Gran % (Auto) 0.6 H 0.5 H Neut % (Auto) 61.5 54.2 Lymph % (Auto) 27.3 34.0 [place] % (Auto) 8.1 8.2 Eos % (Auto) 1.6 2.3 Baso % (Auto) 0.9 0.8 Lymph # (Auto) 2.4 2.6 [place] # (Auto) 0.7 0.6 Eos # (Auto) 0.1 0.2 Baso # (Auto) 0.1 0.1 Abs Immat Gran (auto) 0.05 H 0.04 H Absolute Neuts (auto) 5.4 4.1 Absolute Nucleated RBC 0.000 0.000 Nucleated RBC % (auto) 0.0 0.0 Hold Purple Top PT (Fingerstick) PT 16.4 H INR (Fingerstick) INR 1.4 H APTT 35.3 H Sodium 137 139 Potassium 3.7 4.2 Chloride 107 108 Carbon Dioxide 22 27 Anion Gap 12 8 L BUN 18 H 17 H Creatinine 0.98 1.08 Estim Creat Clear Calc 48.5 44.0 Estimated GFR 56 50 POC Glucose Random Glucose 86 100 Calcium 10.2 D 9.7 Phosphorus Magnesium Total Bilirubin Direct Bilirubin AST ALT Alkaline Phosphatase Troponin I High Sens 15.6 D Total Protein Albumin Triglycerides 64 Cholesterol 152 LDL Cholesterol, Calc 87 HDL Cholesterol 53 Hold Green Top Urine Color Urine Appearance Urine pH Ur Specific [place] Urine Protein Urine Glucose (UA) Urine Ketones Urine Blood Urine Nitrite Ur Leukocyte Esterase Urine RBC Urine WBC Ur Squamous Epith Cells Urine Bacteria Hyaline Casts 12/18/24 12/19/24 06:20 07:02 WBC 7.8 7.3 RBC 4.85 4.88 Hgb 12.3 12.3 Hct 40.9 41.0 MCV 84.3 84.0 MCH 25.4 L 25.2 L MCHC 30.1 L 30.0 L RDW 16.1 H 15.9 Plt Count 640 H 643 H MPV 9.2 L 8.7 L Immature Gran % (Auto) 0.5 H 0.7 H Neut % (Auto) 61.0 55.9 Lymph % (Auto) 28.0 33.6 [place] % (Auto) 7.9 6.5 Eos % (Auto) 2.0 2.5 Baso % (Auto) 0.6 0.8 Lymph # (Auto) 2.2 2.5 [place] # (Auto) 0.6 0.5 Eos # (Auto) 0.2 0.2 Baso # (Auto) 0.1 0.1 Abs Immat Gran (auto) 0.04 H 0.05 H Absolute Neuts (auto) 4.8 4.1 Absolute Nucleated RBC 0.000 0.000 Nucleated RBC % (auto) 0.0 0.0 Hold Purple Top PT (Fingerstick) PT INR (Fingerstick) INR APTT Sodium Potassium Chloride Carbon Dioxide Anion Gap BUN Creatinine Estim Creat Clear Calc Estimated GFR POC Glucose Random Glucose Calcium Phosphorus Magnesium Total Bilirubin Direct Bilirubin AST ALT Alkaline Phosphatase Troponin I High Sens Total Protein Albumin Triglycerides Cholesterol LDL Cholesterol, Calc HDL Cholesterol Hold Green Top Urine Color Urine Appearance Urine pH Ur Specific [place] Urine Protein Urine Glucose (UA) Urine Ketones Urine Blood Urine Nitrite Ur Leukocyte Esterase Urine RBC Urine WBC Ur Squamous Epith Cells Urine Bacteria Hyaline Casts Narrative Narrative: ECHO 12/17/24 Conclusions: - Normal left ventricular size, thickness, systolic function, and wall motion. The visually estimated ejection fraction is between 55-60%. - E/E prime ratio is between 8 and 15 consistent with indeterminate filling pressures. - Normal right ventricular cavity size and systolic function. EKG 12/14/24 Vent. Rate : 84 BPM Atrial Rate : 84 BPM P-R Int : 196 ms QRS Dur : 76 ms QT Int : 358 ms P-R-T Axes : 82 55 73 degrees QTcB Int : 423 ms Sinus rhythm Premature atrial complexes Otherwise normal ECG When compared with ECG of 09-May-2024 14:30, T wave inversion no longer evident in Inferior leads T wave inversion no longer evident in Anterolateral leads Myocardial Perfusion Scan 06/2023 Impression: 1. Myocardial perfusion imaging study shows normal myocardial perfusion. 2. Gated LVEF is 46% during stress, but visually appears normal. 66% during rest. 3. Transient ischemic dilatation not present. Assessment and Plan Final Anesthetic Review Family History of Problems with Anesthesia: No History of Problems with Anesthesia: No Documented by User: Stephanie Hill DO 12/20/24 13:49 PMFSH Past Medical History Medical History Polycythemia vera Postoperative nausea Osteopenia Hx of Lyme disease GERD (gastroesophageal reflux disease) Paroxysmal atrial fibrillation HTN (hypertension) Persistent atrial fibrillation Family History Family History Father Cancer Stroke Mother Diabetes Family history of problems with anesthesia: No Surgical History Surgical History History of total right knee replacement History of esophagogastroduodenoscopy (EGD) Hx of section Hx of hysterectomy Hx of colonoscopy (~08/13/21) Hx of appendectomy History of Problems with Anesthesia: No Social History Social History Household Members: None Housing: House Are you a primary child adolescent care to a significant other at home: Yes ( with Alzheimer's and Parkinson's) Do you presently have visiting nurse or other home services: No Comment: pt refused bed alarm but has been calling nurses every time she gets OOB Patient Tobacco Use Status: Never used Tobacco e-Cigarette/Vaping Use: Never Used Second Hand Smoke Exposure: No Advance Directives Date on File: 03/11/21 service: No Current occupational status: retired Current occupational exposures/hazards: No Cognitive needs: Yes (walker) Hearing needs: No Vision needs: Yes (Rx glasses) Meds Allergies Allergy/AdvReac Type Severity Reaction Status Date / Time diphenhydramine AdvReac Anxiety Verified 12/14/24 19:21 Home Medications ?Medication ?Instructions ?Recorded ?Confirmed ?Last Taken ?Type lisinopril 40 mg tablet 40 mg PO DAILY 03/10/2103/1012/14/24 History acetaminophen 325 mg tablet 975 mg PO Q8H PRN Pain 12/15/24 Unknown History amlodipine 10 mg tablet 10 mg PO DAILY 10/02/2403/1012/14/24 History rivaroxaban 20 mg tablet (Xarelto) 20 mg PO DAILY@1700 12/14/24 12/15/24 12/14/24 History linaclotide 145 mcg capsule 145 mcg PO DAILY PRN Const ipation 12/15/24 12/15/24 Unknown History (Linzess) tobramycin 0.3 %-dexamethasone 0.1 1 drp ophthalmic-Le ft QID 12/15/24 12/15/24 12/14/24 History % eye drops,suspension Exam Exam Date and Time: 12/20/24 1348 Height,Weight and Vital Signs: Height 5 ft 6 in Weight 68.7 kg Last Vital Signs Temp 97.6 F 12/19/24 08:00 Pulse 74 12/19/24 08:00 Resp 18 12/19/24 08:00 BP 174/76 H 12/19/24 08:00 Pulse Ox 96 12/19/24 08:00 O2 Del Method Room Air 12/19/24 08:00 Vital Signs Temperature 98.4 F 12/14/24 19:29 Pulse Rate 84 12/14/24 19:29 Respiratory Rate 12 12/14/24 19:29 Blood Pressure 154/74 H 12/14/24 19:29 Pulse Oximetry 98 12/14/24 19:29 Oxygen Delivery Method Room Air 12/14/24 19:29 Temperature 98.6 F 12/20/24 11:13 Pulse Rate 78 12/20/24 11:13 Respiratory Rate 18 12/20/24 11:13 Blood Pressure 152/64 H 12/20/24 11:13 Pulse Oximetry 99 12/20/24 11:13 Oxygen Delivery Method Room Air 12/20/24 11:13 Airway Mallampati Class: I TM Dist: >3cm Neck ROM: Full Loose/Missing/Broken Teeth: No (patient denies any loose or broken teeth) Heart: S1S2 Lungs: CTAB Assessment and Plan Assessment Anesthesia Assessment: Anesthesia Plan Discussed and Chart Reviewed Final Anesthetic Review Family History of Problems with Anesthesia: No History of Problems with Anesthesia: No NPO: Yes ASA Class: III Final Preanesthetic Review: No Changes in Pt Med Stat, Meds/Allgs Chart Reviewed, Consent Obtained/Reviewed and Anes Risks/Benef Reviewed Patient Risk: Intermediate Procedure Risk: High Anesthetic Plan Anesthetic Plan: GA and Agree w/ Assess. and Plan Disposition: Standard PACU
--- NOTE | 2024-12-20 13:50 | PC.NURSE ---
20g left forearm intact, no leaking, patent iv
--- NOTE | 2024-12-20 14:55 | P.PNIM_ITS ---
Subjective Subjective Date of Service: 12/20/24 Interval History: Patient seen and examined at bedside this morning, patient awaiting to go for procedure today for carotid endarterectomy in the afternoon. Denies any complaints at this time. Review of Systems Review of Systems: Yes all other systems are reviewed and are negative Physical Exam 2 Exam: Exam: General: AxOx3, No acute distress Head: AT/NC ENT: Moist mucous membranes Neck: supple CVS; RRR, S1 S2 normal Lungs: Clear bilateral breath sounds, no wheezes or crackles Abd: Soft non tender, non distended Ext: No edema and no calf tenderness MSK: moving all 4 limbs Skin: No cyanosis or edema Psych: Cooperative with exam Neurology: no focal deficit Vital Signs: Vital Signs: Last Vital Signs Temp 98.0 F 12/20/24 14:01 Pulse 83 12/20/24 14:01 Resp 16 12/20/24 14:01 BP 185/95 H 12/20/24 14:01 Pulse Ox 100 12/20/24 14:01 O2 Del Method Room Air 12/20/24 14:01 BMI result Body Mass Index 24.4 Objective Data Active Medications Acetaminophen (Acetaminophen 325 Mg Tablet) 975 mg PO Q6H PRN PRN Reason: Pain, Mild 1-3,fever,headache Last Admin: 12/20/24 07:56 Dose: 975 mg Documented By: JANAK Amlodipine Besylate (Amlodipine Besylate 10 Mg Tablet) 10 mg PO DAILY [facility]; Protocol Last Admin: 12/20/24 07:53 Dose: 10 mg Documented By: JANAK Aspirin (Aspirin 81 Mg Tab.Chew) 162 mg PO DAILY [facility] Last Admin: 12/20/24 07:54 Dose: Not Given Documented By: JANAK Non-Admin Reason: held per Atorvastatin Calcium (Atorvastatin Calcium 80 Mg Tablet) 80 mg PO BEDTIME [facility] Last Admin: 12/19/24 20:43 Dose: 80 mg Documented By: KEY Calcium Carbonate (Calcium Carbonate 750 Mg Tab.Chew) 750 mg PO Q4H PRN PRN Reason: Heartburn Folic Acid (Folic Acid 1 Mg Tablet) 1 mg PO DAILY [facility] Last Admin: 12/20/24 07:52 Dose: 1 mg Documented By: JANAK Lisinopril (Lisinopril 40 Mg Tablet) 40 mg PO DAILY [facility]; Protocol Last Admin: 12/20/24 07:51 Dose: Not Given Documented By: JANAK Non-Admin Reason: hold per Magnesium Hydroxide (Milk Of Magnesia 30 Ml Oral.Susp) 30 ml PO DAILY PRN PRN Reason: Constipation Metoprolol Succinate (Metoprolol Succinate Er 25 Mg Tab.Er.24h) 25 mg PO DAILY [facility]; Protocol On Hold: 12/16/24 15:08 Last Admin: 12/16/24 09:38 Dose: 25 mg Documented By: PANCHITO Non-Formulary Medication (Linaclotide [Linzess]) 145 mcg PO DAILY PRN PRN Reason: Constipation Omeprazole (Omeprazole 40 Mg Capsule.Dr) 40 mg PO DAILY@0630 [facility] Last Admin: 12/20/24 06:15 Dose: 40 mg Documented By: KEY Ondansetron HCl (Ondansetron Hcl 4 Mg/2 Ml Vial) 4 mg IVPUSH Q8H PRN PRN Reason: Nausea and Vomiting Rivaroxaban (Rivaroxaban 20 Mg Tablet) 20 mg PO DAILY@1700 [facility] Last Admin: 12/19/24 16:23 Dose: 20 mg Documented By: ALEAH Labs 12/20/24 06:17 12/17/24 05:19 Labs: Laboratory Results - last 24 hr 12/20/24 06:17 MCV 83.8 MCH 25.5 L MCHC 30.5 L RDW 16.0 Plt Count 668 H MPV 8.9 L Immature Gran % (Auto) 0.5 H Neut % (Auto) 59.3 Lymph % (Auto) 30.6 [place] % (Auto) 6.8 Eos % (Auto) 2.1 Baso % (Auto) 0.7 Lymph # (Auto) 2.6 [place] # (Auto) 0.6 Eos # (Auto) 0.2 Baso # (Auto) 0.1 Abs Immat Gran (auto) 0.04 H Absolute Neuts (auto) 5.0 Absolute Nucleated RBC 0.000 Nucleated RBC % (auto) 0.0 Assessment and Plan (1) Carotid disease, bilateral: Status: Acute (2) Paroxysmal atrial fibrillation: Status: Acute (3) Polycythemia vera: Status: Acute Plan 74-year-old female, with PMH of paroxysmal AFib on rivaroxaban, PV on hydroxyurea, HTN, presents with left upper extremity weakness, admitted with TIA in the setting of severe bilateral internal carotid artery stenosis to undergo unilateral CA stenosis on 12/20 #TIA w/ left upper extremity weakness w/ b/l critical right RCA stenosis 80-99% and significant left ICA stenosis 75% #Chronic small-vessel ischemic change #Nonacute right parietal infarct #Nonacute right internal capsule lacunar infarct -Imaging reviewed -Vascular surgery consulted, to take to OR today, w/ contralateral stenosis surgery in outpatient settings 3-4 months continue NPO -Continue aspirin, statin and apixaban for 2ry stroke prevention -Continue neuro checks -Continue monitoring on telemetry -PT/OT #Polycythemia vera-chronic stable -continue hydroxyurea #Thrombocytosis, chronic stable -continue monitoring for bleeding # Paroxysmal atrial fibrillation -continue rivaroxaban, monitor for palpitations GERD-continue PPI DVT prophylaxis: Apixaban Disposition: All questions and concerns with the patient were answered to satisfaction. All pertinent clinical documents, images and labs were reviewed. DISCLAIMER: This document was created using voice recognition software. Any mistakes in the prescription are unintentional. An attempt was made to focus for accuracy, but to expedite availability, some errors may persist. Please contact with any need for correction or further clarification Total time managing care of this patient today: 35 minutes. Quality Stroke Does the patient have a stroke diagnosis?: Yes Reason for No Anti-thrombotic by Day Two: N/A - Med Ordered VTE Prior VTE?: No VTE Risk Level:: Medical - moderate - high VTE Device Contraindication: Treatment Not Indicated VTE Drug Contraindication: N/A - Med Ordered
--- NOTE | 2024-12-20 16:56 | W.PM.OPN ---
Operative Note Operative Note Date of Service: 12/20/24 Narrative: Operative note by [facility] Preoperative diagnosis:1. Right Carotid stenosis 2. Transient ischemic attack Postoperative diagnosis: Same Procedure: Right Carotid endarterectomy with patch angioplasty Surgeon:Florin Swartz M.D. Geophysical Manager: Dr. Anders Anesthesia: General Specimens: 1 Drains: 1 Estimated blood loss: 100 mL Indications: 74-year-old female presents to hospital with question of TIA. Upon workup and CT angiogram was noted to have high-grade right carotid stenosis. She now presents for right carotid endarterectomy The patient has signed the informed consent after reviewing risks, complications, benefits, and alternatives previously discussed with the patient. The patient was given the opportunity to ask any additional questions or voice any concerns. All questions were answered to the patient's satisfaction. Procedure in detail: Patient was taken to the operating room and placed in a supine position and prepped and draped in sterile manner with ChloraPrep. Longitudinal incision was made along the anterior border of the right sternocleidomastoid carried down through the subcutaneous fat and fascia. Hemostasis was obtained with electrocautery. The platysma muscle was then divided. The carotid sheath was identified in open. The vagus nerve, Ancef cervicalis, and hypoglossal nerves were identified and avoided. The common internal and external carotids were then freed from the surrounding tissue. At this point, [] units of heparin was administered and allowed to circulate for 5 minutes time to take effect. The internal, common, external carotids were clamped in that order. Once this was accomplished, we proceeded with the procedure. The carotid bulb was opened with an 11 blade and extended with Lubin scissors through the very tight lesion into normal internal carotid artery. This was then extended down into the common carotid artery. We then placed a [place] shunt. Then the plaque was sharply excised proximally and an eversion endarterectomy was performed successfully at the external. The plaque tapered nicely on to the internal and no tacking sutures were necessary. Heparinized saline was injected and no evidence of flapping or other debris was noted. The remaining carotid was examined, which showed no debris or flaps present. At this point a XenoSure patch was brought on to the field. This was anastomosed to the artery using a 6 0 Prolene in a running fashion. Once approximately 4/5 of the patch was sewn in the shunt was then removed. Prior to the last stitch the internal carotid was back bled through this. Heparinized saline was instilled into the carotid. The last stitch was tied. Hemostasis was excellent. The internal carotid was gently occluded while while of the external and internal were open in that order. Finally the internal was then opened and flow was restored to the entire system. Hemostasis was achieved with interrupted 7-0 Prolene sutures. The wound was irrigated thoroughly. We then used Vistaseal for hemostatic agent. Deep layer was reapproximated using a 2-0 poly Sorb and finally the superficial layer with a 3-0 Polysorb. The skin was closed in a subcuticular manner. The patient awoke and neurologic status was checked and appeared to be intact. Sponge, needle and instrument counts were correct. The patient tolerated the procedure well. Returned to recovery with stable vitals. This note is constructed using voice recognition software. While every effort has been made to ensure accuracy, sales process manager errors may have been included. Thank you for allowing me to participate in the care of your patient. Yours sincerely, Florin Swartz MD, FACS, R.P.V.I.
--- NOTE | 2024-12-20 19:40 | PM.CCN ---
Critical Care Event Note Summary Date of Service: 12/20/24 Code activated: No Narrative: This case had a high probability of a clinically significant, sudden, or life threatening deterioration of this patient's condition which required my full and direct attention, intervention and personal management. Critical Care Time (minutes): 30 Comment: The patient is a 74-year-old female with a past medical history of paroxysmal atrial fibrillation (on Rivaroxaban), polycythemia vera and hypertension who presents to the emergency department on 12/14/24 with left upper extremity weakness, admitted to Hospital Medicine with TIA in the setting of severe bilateral internal carotid artery stenosis.? Today she underwent right carotid endarterectomy by Dr. Swartz. Admitted to ICU for hemodynamically monitoring post procedure Plan: Neuro:? TIA: in the setting of severe bilateral internal carotid artery stenosis. s/p right carotid endarterectomy. Vascular surgery plans to do left-sided later time. Cardiac:? Postoperative day 0 status post elective Right carotid endarterectomy.? Vascular surgery service care appreciated.? Underlying history of hypertension Hypertension urgency: ?Post op, with elevated blood pressures, requiring labetalol and initiation of nicardipine drip. ?Continue nicardipine drip. Keep SBP <160. Avoid hypotension Underlying history of atrial fibrillation: ?Rate controlled. ?Xarelto on hold due to procedure. Pulmonary:? No acute issues.?? Endo:? No acute issues.? GI:? No acute issues. ID:? No acute issues Heme/Onc:? Underlying hx of Polycythemia vera-chronic stable. Continue hydroxyurea Thrombocytosis, chronic stable. Continue monitoring for bleeding Psych:? No acute issues. Miscellaneous:? No acute issues. Prophylaxis:?Home Xarelto, on hold, resume ?Per vascular surgery. Will use pneumatic boots CODE STATUS: FULL CODE? Critical care time: ? 30 min ?Case discussed with attending ?
[2024-12-20 20:21] LABS: Hematocrit 43.8 % (37.0-47.0); Hemoglobin 13.4 g/dl (12.0-16.0); Imm Gran Abs Auto 0.07 X10*3/uL (0.00-0.03); Imm Gran Pct Auto 0.6 % (0.0-0.4); Lymphocytes Absolute Auto 0.7 X10*3/uL (1.2-4.9); MANUAL DIFF FLAG SCAN; Mean Corpuscular HGB Conc 30.6 g/dl (31.0-35.0); Mean Corpuscular Hemoglobin 25.2 pg (27.0-33.0); Mean Corpuscular Volume 82.5 fL (80.0-98.0); NRBC Abs Auto 0.000 X10*3/uL (0.0-0.012); NRBC Pct Auto 0.0 /100WBC (0.0-0.2); Platelet Count 629 X10*3/uL (160-400); Red Blood Count 5.31 X10*6/uL (4.20-5.50); SCAN SMEAR FLAG 1; White Blood Count 11.1 X10*3/uL (4.8-10.8)
[2024-12-20 20:28] LABS: Albumin Level 3.7 g/dL (3.5-5.0)
[2024-12-20 20:34] LABS: Anion Gap 17 (12-20); Blood Urea Nitrogen 22 mg/dL (9-16); Calcium 9.3 mg/dL (8.4-10.2); Carbon Dioxide 16 mmol/L (22-29); Chloride 106 mmol/L (96-108); Creatinine Clr Calc Pharmacy 45.3; Estimated Glomerular Filt Rate 52; Magnesium 1.6 mg/dL (1.6-2.6); Potassium 3.9 mmol/L (3.3-5.1); Sodium 135 mmol/L (135-145)
[2024-12-20] MEDS: oxyCODONE HCl Immed Release 5 MG TABLET PO (21:09)
[2024-12-20] MEDS: 0.9 % Sodium Chloride Flush 3 ML SYRINGE IVFLUSH (21:13)
[2024-12-21] VITALS (26 sets, daily range): BP systolic 96–172; BP diastolic 45–102; PULSE 67–96; RESP 10–19; TEMP 36–37.3; O2SAT 95–100; BMI 26.3
[2024-12-21] MEDS: oxyCODONE HCl Immed Release 5 MG TABLET PO (01:02)
[2024-12-21 05:01] LABS: Hematocrit 39.5 % (37.0-47.0); Hemoglobin 12.3 g/dl (12.0-16.0); Imm Gran Abs Auto 0.04 X10*3/uL (0.00-0.03); Imm Gran Pct Auto 0.5 % (0.0-0.4); Lymphocytes Absolute Auto 0.8 X10*3/uL (1.2-4.9); MANUAL DIFF FLAG NO; Mean Corpuscular HGB Conc 31.1 g/dl (31.0-35.0); Mean Corpuscular Hemoglobin 25.3 pg (27.0-33.0); Mean Corpuscular Volume 81.1 fL (80.0-98.0); NRBC Abs Auto 0.000 X10*3/uL (0.0-0.012); NRBC Pct Auto 0.0 /100WBC (0.0-0.2); Platelet Count 747 X10*3/uL (160-400); Red Blood Count 4.87 X10*6/uL (4.20-5.50); White Blood Count 8.5 X10*3/uL (4.8-10.8)
--- NOTE | 2024-12-21 05:08 | PC.NURSE ---
s/p R carotid endarterectomy, admitted for overnight monitoring. Nicardipine gtt was discontinued upon ICU admission. Patient received 1 dose of 5mg Labetalol push for SBP >160, but otherwise maintaining stable vital signs. Patient arrived with saturated dressing over surgical access site, requiring frequent dressing reinforcement throughout the shift. Patient expressed her frustration over lack of communication and attention from the surgical team. Both the overnight salt machine operator and the operating surgeon were contacted about the bleeding. The dope dry house operator was notified of the ongoing matter and spoke to the patient per the patient's request. Will continue to monitor the bleeding along with her cardiovascular status.
[2024-12-21 05:09] LABS: INTERNATIONAL NORM RATIO 1.4 (0.9-1.1); Prothrombin Time 16.8 SEC (11.2-13.5)
[2024-12-21 05:18] LABS: Anion Gap 13 (12-20); Blood Urea Nitrogen 21 mg/dL (9-16); Calcium 9.4 mg/dL (8.4-10.2); Carbon Dioxide 19 mmol/L (22-29); Chloride 104 mmol/L (96-108); Creatinine Clr Calc Pharmacy 47.1; Estimated Glomerular Filt Rate 54; Magnesium 1.7 mg/dL (1.6-2.6); Potassium 4.3 mmol/L (3.3-5.1); Sodium 132 mmol/L (135-145)
[2024-12-21] MEDS: 0.9 % Sodium Chloride Flush 3 ML SYRINGE IVFLUSH ×3 (07:48→20:48)
[2024-12-21] MEDS: Metoprolol Succinate ER 25 MG TAB.ER.24H PO (08:08)
--- NOTE | 2024-12-21 09:06 | P.PNVS_ITS ---
Subjective Subjective Date of Service: 12/21/24 Interval history: Patient is postop day 1 status post right carotid endarterectomy. Overnight had bleeding issues and has been saturating dressings which has been changed twice. This morning was tolerating regular diet. No airway compromise. She was otherwise comfortable in bed just nervous and anxious about being transferred to the floor. Denies any significant pain. Hemoglobin is stable at 12.3. Physical Exam Vital Signs: Vital Signs: Last Vital Signs Temp 98.0 F 12/21/24 08:00 Pulse 96 12/21/24 08:08 Resp 13 12/21/24 08:00 BP 112/89 12/21/24 08:09 Pulse Ox 100 12/21/24 08:00 O2 Del Method Room Air 12/21/24 08:00 O2 Flow Rate 2 12/20/24 18:54 BMI result Body Mass Index 26.3 Const: General: cooperative, healthy appearing and comfortable Orientation/consciousness: oriented to person, oriented to place and oriented to time HEENT: Head: Yes normal to inspection Neck: Neck: Yes normal visual inspection Carotids: no bruits Chest: Chest palpation & inspection: normal inspection of the chest Resp: Effort & Inspection: normal respiratory effort and able to speak in complete sentences Auscultation: clear to auscultation bilaterally, no crackles, no rales, no rhonchi and no wheezes Cardio: Rate: regular rate Rhythm: regular rhythm Heart sounds: S1 normal heart sound present and S2 normal heart sound present Bruits: no carotid bruits Peripheral pulses: Peripheral pulses 2+ throughout GI: Inspection: Yes normal to inspection Skin: Other: Right neck hematoma. Bleeding through the incision line. Steri-Strips replaced. Sterile dressing applied Wounds: no wounds Hair: normal Neuro: General: oriented to person, oriented to place and oriented to time Cranial nerves: Yes CN's II-XII intact bilaterally and Yes Normal hearing present Cognition (Neuro): normal cognition Motor exam (neuro): 5/5 motor strength present throughout Extrem: Other: venous exam: No significant superficial varicosities or spider telangiectasias, minimal edema General: No clubbing, No cyanosis and No edema Psych: Appearance: grossly normal Mental Status: mental status grossly normal Speech and movement: Normal speech and movement present Progress Note: A&P Assessment and plan (1) Carotid stenosis, right: Status: Acute Assessment and Plan: In short patient is doing well status post right carotid endarterectomy. Concern here is the bleeding which may need to be observed through the weekend. She is living at home alone. At the current time would continue with regular diet. She can be out of bed to chair. In addition A-line and Teixeira can be removed. We will hold aspirin and Xarelto until adequate hemostasis is achieved. Thank you to the consulting technical director for their assistance in her care. If there are any questions or concerns please do not hesitate to reach out. Time Spent With Patient Time: Total time managing care of this patient today ____ minutes. Procedures Date of Service Date of Service: 12/21/24 Quality Stroke Does the patient have a stroke diagnosis?: Yes Reason for No Anti-thrombotic by Day Two: N/A - Med Ordered VTE Prior VTE?: No VTE Risk Level:: Medical - moderate - high VTE Device Contraindication: Treatment Not Indicated VTE Drug Contraindication: N/A - Med Ordered
--- NOTE | 2024-12-21 09:51 | P.PNCC_ITS ---
Subjective Subjective Date of Service: 12/21/24 Interval History: 74-year-old lady with underlying AFib on Xarelto, polycythemia vera, hypotension admitted on 03/15/2024 with left upper extremity weakness secondary to TIA on the background of severe bilateral internal carotid artery stenosis. Patient now postoperative day 1 after an elective right carotid endarterectomy, recovering well. No events overnight. Critical Care Time (minutes): 0 Physical Exam 2 Vital Signs: Vital Signs: Last Vital Signs Temp 98.0 F 12/21/24 08:00 Pulse 96 12/21/24 08:08 Resp 13 12/21/24 08:00 BP 112/89 12/21/24 08:09 Pulse Ox 100 12/21/24 08:00 O2 Del Method Room Air 12/21/24 08:00 O2 Flow Rate 2 12/20/24 18:54 BMI result Body Mass Index 26.3 Const: General: no acute distress, alert and awake Eyes: Sclerae: sclerae normal EOM: EOMs intact bilaterally Neck: Neck: Yes no lymphadenopathy, Yes trachea midline, Yes supple and Yes other (Right carotid endarterectomy site with no significant hematoma.) Resp: Effort & Inspection: normal respiratory effort and no respiratory distress Auscultation: clear to auscultation bilaterally Cardio: Rate: regular rate Rhythm: regular rhythm Heart sounds: no gallops, no murmurs and no rubs GI: Palpation (GI): Soft to palpation and Other GI palpation findings present ( Nontender) Auscultation: normal bowel sounds Extrem: General: Yes no pedal edema, No clubbing and No cyanosis Objective Data Labs 12/21/24 04:24 12/21/24 04:24 Labs: Laboratory Results - last 24 hr 12/20/24 12/21/24 20:11 04:24 WBC 11.1 H 8.5 RBC 5.31 4.87 Hgb 13.4 12.3 Hct 43.8 39.5 MCV 82.5 81.1 MCH 25.2 L 25.3 L MCHC 30.6 L 31.1 RDW 15.9 15.9 Plt Count 629 H 747 H MPV 8.5 L 8.9 L Immature Gran % (Auto) 0.6 H 0.5 H Neut % (Auto) 91.7 H 86.6 H Lymph % (Auto) 6.5 L 9.9 L [place] % (Auto) 0.8 L 2.8 Eos % (Auto) 0.0 0.0 Baso % (Auto) 0.4 0.2 Lymph # (Auto) 0.7 L 0.8 L [place] # (Auto) 0.1 0.2 Eos # (Auto) 0.0 0.0 Baso # (Auto) 0.0 0.0 Abs Immat Gran (auto) 0.07 H 0.04 H Absolute Neuts (auto) 10.2 H 7.4 Absolute Nucleated RBC 0.000 0.000 Nucleated RBC % (auto) 0.0 0.0 Smear Tech's Comments VERIFIED PT 16.8 H INR 1.4 H Sodium 135 132 L Potassium 3.9 4.3 Chloride 106 104 Carbon Dioxide 16 L 19 L Anion Gap 17 13 BUN 22 H 21 H Creatinine 1.05 1.01 Estim Creat Clear Calc 45.3 47.1 Estimated GFR 52 54 Random Glucose 168 H 146 H Calcium 9.3 9.4 Phosphorus 3.1 3.0 Magnesium 1.6 1.7 Albumin 3.7 Microbiology Microbiology Results: Microbiology 12/14/24 22:15 Urine clean catch - Clean Catch Midstream Urine Culture - Final Progress Note: A&P Assessment and plan (1) Carotid disease, bilateral: Status: Acute (2) Paroxysmal atrial fibrillation: Status: Acute (3) Polycythemia vera: Status: Acute Plan Assessment: 74-year-old lady admitted with TIA on a background of bilateral carotid stenosis, now postoperative day 1 after right carotid endarterectomy, recovering well. Plan: Neuro: TIA on a background of bilateral carotid stenosis, now status post right carotid endarterectomy. Vascular surgery service care appreciated. Cardiac: No acute issues. Underlying AFib, previously on Xarelto, continue rate control. Maintain systolic blood pressure under 160. Pulmonary: No acute issues. Renal: No acute issues. Endo: No acute issues. GI: No acute issues. ID: No acute issues Heme/Onc: No acute issues. Psych: No acute issues. Miscellaneous: No acute issues. Prophylaxis: Per vascular surgery Diet: Regular Quality Stroke Does the patient have a stroke diagnosis?: Yes Reason for No Anti-thrombotic by Day Two: N/A - Med Ordered VTE Prior VTE?: No VTE Risk Level:: Medical - moderate - high VTE Device Contraindication: Treatment Not Indicated VTE Drug Contraindication: N/A - Med Ordered
--- NOTE | 2024-12-21 10:08 | HO.POSTANES ---
Post Anesthesia Evaluation Post Anesthesia Evaluation Date of Service: 12/21/24 Vital Signs: Vital Signs Temp Pulse Resp BP Pulse Ox O2 Del Method 12/21/24 08:09 112/89 12/21/24 08:09 11212/21/24 08:08 96 112/12/21/24 08:00 98.0 F 84 13 133/66 100 Room Air 12/21/24 07:00 75 14 140/67 H 98 Room Air 12/21/24 06:00 74 16 126/64 98 Room Air 12/21/24 05:00 81 17 152/84 H 99 Room Air 12/21/24 04:00 98.3 F 85 14 148/81 H 100 12/21/24 03:00 72 14 135/63 99 Room Air 12/21/24 02:00 70 140/66 H 12/21/24 02:00 70 15 140/66 H 98 Room Air 12/21/24 00:59 80 172/83 H 12/21/24 00:00 96.8 F 95 17 167/80 H 99 Room Air Anesthesia: General Endotracheal-GETA Pain Control: Satisfactory Nausea/Vomiting: None Hydration: Adequate Anesthesia-Related Issues: No Anes. Related Issues
--- NOTE | 2024-12-21 12:00 | MHC.CM.PN ---
Met with pt to review d/c planning needs: pt will d/c to home with [facility]. Her friend will transport her and is available if she requires additional help. CM to follow
--- NOTE | 2024-12-21 14:53 | PM.EVENT ---
Event Note Date of Service: 12/21/24 Event Note: 74-year-old female who underwent right carotid endarterectomy on 12/20, admitted to the ICU for close monitoring. Patient recently on Xarelto and aspirin, these were placed on hold. At this time with right-sided dressing in place. Patient has required frequent changes due to bleeding. Spoke with vascular surgery, suggested on keeping reinforcing the dressings and changing, and repeat CBC later today at 18:00. Time Spent With Patient Time: Total time managing care of this patient today ____ minutes.
--- NOTE | 2024-12-21 17:10 | PC.NURSE ---
Assume Care @ 0700 A&O x4. On RA, clear lung sounds. Sinus Rhythm on tele.? S/P right carotid endarterectomy day 1. Wound Dressing saturated x3 requiring DGS changes by? Dr. Swartz and this RN. (Sugecel, 4x4 Gauze and tegaderm). LBM 11/, Regular diet. Teixeira removed, voiding on the bedside commode.
[2024-12-21 18:34] LABS: Hematocrit 38.6 % (37.0-47.0); Hemoglobin 11.8 g/dl (12.0-16.0); Mean Corpuscular HGB Conc 30.6 g/dl (31.0-35.0); Mean Corpuscular Hemoglobin 24.9 pg (27.0-33.0); Mean Corpuscular Volume 81.6 fL (80.0-98.0); NRBC Abs Auto 0.000 X10*3/uL (0.0-0.012); NRBC Pct Auto 0.0 /100WBC (0.0-0.2); Platelet Count 940 X10*3/uL (160-400); Red Blood Count 4.73 X10*6/uL (4.20-5.50); White Blood Count 14.4 X10*3/uL (4.8-10.8)
[2024-12-22] VITALS (16 sets, daily range): BP systolic 95–140; BP diastolic 38–85; PULSE 61–82; RESP 10–24; TEMP 36.1–37.4; O2SAT 93–99; BMI 26.2
[2024-12-22 04:24] LABS: MANUAL DIFF FLAG NO
[2024-12-22 04:27] LABS: Hematocrit 35.4 % (37.0-47.0); Hemoglobin 10.7 g/dl (12.0-16.0); Imm Gran Abs Auto 0.06 X10*3/uL (0.00-0.03); Imm Gran Pct Auto 0.6 % (0.0-0.4); Lymphocytes Absolute Auto 3.2 X10*3/uL (1.2-4.9); Mean Corpuscular HGB Conc 30.2 g/dl (31.0-35.0); Mean Corpuscular Hemoglobin 25.1 pg (27.0-33.0); Mean Corpuscular Volume 82.9 fL (80.0-98.0); NRBC Abs Auto 0.000 X10*3/uL (0.0-0.012); NRBC Pct Auto 0.0 /100WBC (0.0-0.2); Platelet Count 573 X10*3/uL (160-400); Red Blood Count 4.27 X10*6/uL (4.20-5.50); White Blood Count 10.3 X10*3/uL (4.8-10.8)
[2024-12-22 04:42] LABS: Albumin Level 3.2 g/dL (3.5-5.0); Anion Gap 11 (12-20); Blood Urea Nitrogen 29 mg/dL (9-16); Calcium 9.1 mg/dL (8.4-10.2); Carbon Dioxide 21 mmol/L (22-29); Chloride 105 mmol/L (96-108); Creatinine Clr Calc Pharmacy 31.7; Estimated Glomerular Filt Rate 31; Magnesium 1.8 mg/dL (1.6-2.6); Potassium 4.5 mmol/L (3.3-5.1); Sodium 132 mmol/L (135-145)
[2024-12-22] MEDS: Metoprolol Succinate ER 25 MG TAB.ER.24H PO (08:19)
[2024-12-22] MEDS: 0.9 % Sodium Chloride Flush 3 ML SYRINGE IVFLUSH ×2 (08:21→16:27)
--- NOTE | 2024-12-22 09:12 | HO.VASCPN ---
Subjective Subjective Date of Service: 12/22/24 Patient reports: no new complaints and feels better Interval history: Patient is status post carotid endarterectomy postoperatively had some bleeding through the carotid site. Appears to have stopped. Has stabilized. At the current time no respiratory compromise tolerating regular diet no events. Has been transferred to a floor bed but held in ICU bed as a watch. Physical Exam Vital Signs: Vital Signs: Last Vital Signs Temp 97.4 F 12/22/24 07:00 Pulse 68 12/22/24 09:00 Resp 14 12/22/24 09:00 BP 110/38 L 12/22/24 09:00 Pulse Ox 98 12/22/24 08:00 O2 Del Method Room Air 12/22/24 09:00 O2 Flow Rate 2 12/20/24 18:54 BMI result Body Mass Index 26.2 Const: General: cooperative, healthy appearing and no acute distress Orientation/consciousness: oriented to person, oriented to place and oriented to time HEENT: Head: Yes normal to inspection Neck: Carotids: no bruits Chest: Chest palpation & inspection: normal inspection of the chest Resp: Effort & Inspection: normal respiratory effort and able to speak in complete sentences Auscultation: clear to auscultation bilaterally Cardio: Rate: regular rate Heart sounds: S1 normal heart sound present and S2 normal heart sound present GI: Inspection: Yes normal to inspection Skin: Other: Right neck hematoma stable General skin exam: no rashes or lesions noted Wounds: no wounds Neuro: General: oriented to person, oriented to place, oriented to time and CN's II-XI intact bilaterally Extrem: General: Yes normal to inspection, Yes full ROM and Yes no clubbing, cyanosis or edema Psych: Appearance: grossly normal and well kempt Speech and movement: Normal speech and movement present Affect: normal affect Progress Note: A&P Assessment and plan (1) Carotid stenosis, right: Status: Acute Assessment and Plan: Stable status post right carotid endarterectomy. Hematoma appears to be stable as well. We will continue to monitor H&H and will most likely need to stay through the weekend. Anticipate discharge on Tuesday. She will require visiting nurse services as well. Thank you for allowing us to assist in her care. If there are any questions or concerns please do not hesitate to contact us. Time Spent With Patient Time: Total time managing care of this patient today ____ minutes. Procedures Date of Service Date of Service: 12/22/24 Quality Stroke Does the patient have a stroke diagnosis?: Yes Reason for No Anti-thrombotic by Day Two: N/A - Med Ordered VTE Prior VTE?: No VTE Risk Level:: Medical - moderate - high VTE Device Contraindication: Treatment Not Indicated VTE Drug Contraindication: N/A - Med Ordered
--- NOTE | 2024-12-22 10:29 | P.PNIM_ITS ---
Subjective Subjective Date of Service: 12/22/24 Interval History: Patient seen examined at bedside this morning, patient states that she is feeling better, last dressing change was history approximately 18:00. Patient states that she feels well, denies any weakness, headache, some mild pain that is alleviated with Tylenol. Review of Systems Review of Systems: Yes all other systems are reviewed and are negative Physical Exam 2 Exam: Exam: General: AxOx3, No acute distress Head: AT/NC ENT: Moist mucous membranes Neck: supple, right-sided dressing in place, as well as underlying hematoma CVS; RRR, S1 S2 normal Lungs: Clear bilateral breath sounds, no wheezes or crackles Abd: Soft non tender, non distended Ext: No edema and no calf tenderness MSK: moving all 4 limbs Skin: No cyanosis or edema Psych: Cooperative with exam Neurology: no focal deficit Vital Signs: Vital Signs: Last Vital Signs Temp 97.4 F 12/22/24 07:00 Pulse 61 12/22/24 10:00 Resp 10 L 12/22/24 10:00 BP 95/52 L 12/22/24 10:00 Pulse Ox 96 12/22/24 10:00 O2 Del Method Room Air 12/22/24 10:00 O2 Flow Rate 2 12/20/24 18:54 BMI result Body Mass Index 26.2 Objective Data Active Medications Acetaminophen (Acetaminophen 325 Mg Tablet) 975 mg PO Q6H PRN PRN Reason: Pain, Mild 1-3,fever,headache Last Admin: 12/22/24 05:56 Dose: 975 mg Documented By: AMELIA Amlodipine Besylate (Amlodipine Besylate 10 Mg Tablet) 10 mg PO DAILY [facility]; Protocol Last Admin: 12/22/24 08:19 Dose: 10 mg Documented By: MARCO Atorvastatin Calcium (Atorvastatin Calcium 80 Mg Tablet) 80 mg PO BEDTIME [facility] Last Admin: 12/21/24 20:39 Dose: 80 mg Documented By: AMELIA Calcium Carbonate (Calcium Carbonate 750 Mg Tab.Chew) 750 mg PO Q4H PRN PRN Reason: Heartburn Folic Acid (Folic Acid 1 Mg Tablet) 1 mg PO DAILY [facility] Last Admin: 12/22/24 08:20 Dose: 1 mg Documented By: MARCO Labetalol HCl (Labetalol Hcl 100 Mg/20 Ml Vial) 5 mg IVPUSH Q5MX3 PRN PRN Reason: SBP > 160 Last Admin: 12/21/24 00:59 Dose: 5 mg Documented By: SAM Lisinopril (Lisinopril 40 Mg Tablet) 40 mg PO DAILY [facility]; Protocol Last Admin: 12/22/24 08:19 Dose: 40 mg Documented By: MARCO Magnesium Hydroxide (Milk Of Magnesia 30 Ml Oral.Susp) 30 ml PO DAILY PRN PRN Reason: Constipation Melatonin (Melatonin 3 Mg Tablet) 6 mg PO BEDTIME PRN PRN Reason: Insomnia Metoprolol Succinate (Metoprolol Succinate Er 25 Mg Tab.Er.24h) 25 mg PO DAILY [facility]; Protocol Last Admin: 12/22/24 08:19 Dose: 25 mg Documented By: MARCO Morphine Sulfate (Morphine Sulfate 4 Mg/Ml Cartridge) 2 mg IVPUSH Q4H PRN; Protocol PRN Reason: Pain, Severe (Pain Scale 7-10) Last Admin: 12/21/24 08:39 Dose: 2 mg Documented By: ETHAN Naloxone HCl (Naloxone Hcl 0.4 Mg/Ml Vial) 0.2 mg IVPUSH Q2M PRN PRN Reason: Excessive sedation or RR < 8 Non-Formulary Medication (Linaclotide [Linzess]) 145 mcg PO DAILY PRN PRN Reason: Constipation Omeprazole (Omeprazole 40 Mg Capsule.Dr) 40 mg PO DAILY@0630 [facility] Last Admin: 12/22/24 05:56 Dose: 40 mg Documented By: AMELIA Ondansetron HCl (Ondansetron Hcl 4 Mg/2 Ml Vial) 4 mg IVPUSH Q8H PRN PRN Reason: Nausea and Vomiting Oxycodone HCl (Oxycodone Hcl Immed Release 5 Mg Tablet) 5 mg PO Q4H PRN PRN Reason: Pain, Moderate(Pain Scale 4-6) Last Admin: 12/21/24 01:02 Dose: 5 mg Documented By: SAM Sodium Chloride (0.9 % Sodium Chloride Flush 3 Ml Syringe) 3 ml IVFLUSH [facility] Last Admin: 12/22/24 08:21 Dose: 3 ml Documented By: MARCO Labs 12/22/24 04:18 12/22/24 04:18 Labs: Laboratory Results - last 24 hr 12/21/24 12/22/24 18:05 04:18 MCV 81.6 82.9 MCH 24.9 L 25.1 L MCHC 30.6 L 30.2 L RDW 16.2 H 16.3 H Plt Count 940 H D 573 H D MPV 8.8 L 8.6 L Immature Gran % (Auto) 0.6 H Neut % (Auto) 59.1 Lymph % (Auto) 30.8 [place] % (Auto) 7.7 Eos % (Auto) 1.2 Baso % (Auto) 0.6 Lymph # (Auto) 3.2 [place] # (Auto) 0.8 Eos # (Auto) 0.1 Baso # (Auto) 0.1 Abs Immat Gran (auto) 0.06 H Absolute Neuts (auto) 6.1 Absolute Nucleated RBC 0.000 0.000 Nucleated RBC % (auto) 0.0 0.0 Anion Gap 11 L Estim Creat Clear Calc 31.7 Estimated GFR 31 Random Glucose 109 Calcium 9.1 Phosphorus 2.9 Magnesium 1.8 Albumin 3.2 L Assessment and Plan (1) Paroxysmal atrial fibrillation: Status: Acute (2) Carotid disease, bilateral: Status: Acute (3) Polycythemia vera: Status: Acute (4) HTN (hypertension): Status: Acute Plan 74-year-old female, with PMH of paroxysmal AFib on rivaroxaban, PV on hydroxyurea, HTN, presents with left upper extremity weakness, admitted with TIA in the setting of severe bilateral internal carotid artery stenosis, underwent right carotid endarterectomy on 12/20, patient with bleeding from site requiring hold on xarelto and ASA. downgraded from the ICU on 12/21. #TIA w/ left upper extremity weakness w/ b/l critical right RCA stenosis 80-99% and significant left ICA stenosis 75% s/p right endarterectomy on 12/20 #Chronic small-vessel ischemic change #Nonacute right parietal infarct #Nonacute right internal capsule lacunar infarct -Imaging reviewed -Vascular surgery to follow up -Hold aspirin and xarelto in setting of recent bleeding -Continue statin 2ry stroke prevention -Continue neuro checks -Continue monitoring on telemetry -PT/OT #Polycythemia vera-chronic stable -continue hydroxyurea #Thrombocytosis, chronic stable -continue monitoring for bleeding # Paroxysmal atrial fibrillation -hold rivaroxaban in setting of bleeding, monitor for palpitations. Continue metoprolol succinate 25mg qhs Hypertension -continue lisinopril, amlodipine, and metoprolol, with labetalol PRN for SBP greater than 160 GERD-continue PPI DVT prophylaxis: SCDs Disposition: All questions and concerns with the patient were answered to satisfaction. All pertinent clinical documents, images and labs were reviewed. DISCLAIMER: This document was created using voice recognition software. Any mistakes in the prescription are unintentional. An attempt was made to focus for accuracy, but to expedite availability, some errors may persist. Please contact with any need for correction or further clarification Total time managing care of this patient today: 35 minutes. Quality Stroke Does the patient have a stroke diagnosis?: Yes Reason for No Anti-thrombotic by Day Two: N/A - Med Ordered VTE Prior VTE?: No VTE Risk Level:: Medical - moderate - high VTE Device Contraindication: Treatment Not Indicated VTE Drug Contraindication: N/A - Med Ordered
[2024-12-23] VITALS: BP 124/70; PULSE 79; RESP 18; TEMP 36.2; O2SAT 92
[2024-12-23 04:00] VITALS: BP 127/67; PULSE 61; RESP 18; TEMP 36.2; O2SAT 97
[2024-12-23 06:00] VITALS: BMI 23.9
[2024-12-23 07:56] VITALS: BP 147/84; PULSE 70; RESP 16; TEMP 36.3; O2SAT 98
[2024-12-23] MEDS: Metoprolol Succinate ER 25 MG TAB.ER.24H PO (09:08)
[2024-12-23] MEDS: 0.9 % Sodium Chloride Flush 3 ML SYRINGE IVFLUSH ×2 (09:15→20:12)
[2024-12-23 09:19] LABS: Hematocrit 37.5 % (37.0-47.0); Hemoglobin 11.0 g/dl (12.0-16.0); Mean Corpuscular HGB Conc 29.3 g/dl (31.0-35.0); Mean Corpuscular Hemoglobin 24.6 pg (27.0-33.0); Mean Corpuscular Volume 83.9 fL (80.0-98.0); NRBC Abs Auto 0.000 X10*3/uL (0.0-0.012); NRBC Pct Auto 0.0 /100WBC (0.0-0.2); Platelet Count 745 X10*3/uL (160-400); Red Blood Count 4.47 X10*6/uL (4.20-5.50); White Blood Count 8.1 X10*3/uL (4.8-10.8)
[2024-12-23 11:28] VITALS: BP 134/75; PULSE 90; RESP 16; TEMP 36.8; O2SAT 98
--- NOTE | 2024-12-23 11:58 | HO.PM.IMPN ---
Subjective Subjective Date of Service: 12/23/24 Interval History: Patient seen and examined at bedside this morning, patient mentions that she is dysphonic, with mild odynophagia. Denies any other complaints at this time. Hemoglobin has began to stabilize. Review of Systems Review of Systems: Yes all other systems are reviewed and are negative Physical Exam Exam: Exam: General: AxOx3, No acute distress Head: AT/NC ENT: Moist mucous membranes Neck: supple, right-sided dressing in place with dried blood CVS; RRR, S1 S2 normal Lungs: Clear bilateral breath sounds, no wheezes or crackles Abd: Soft non tender, non distended Ext: No edema and no calf tenderness MSK: moving all 4 limbs Skin: No cyanosis or edema Psych: Cooperative with exam Neurology: no focal deficit Vital Signs: Vital Signs: Last Vital Signs Temp 98.3 F 12/23/24 11:28 Pulse 90 12/23/24 11:28 Resp 16 12/23/24 11:28 BP 134/75 12/23/24 11:28 Pulse Ox 98 12/23/24 11:28 O2 Del Method Room Air 12/23/24 11:28 O2 Flow Rate 2 12/20/24 18:54 BMI result Body Mass Index 23.9 Objective Data Active Medications Acetaminophen (Acetaminophen 325 Mg Tablet) 975 mg PO Q6H PRN PRN Reason: Pain, Mild 1-3,fever,headache Last Admin: 12/22/24 22:55 Dose: 975 mg Documented By: VIDHYA Amlodipine Besylate (Amlodipine Besylate 10 Mg Tablet) 10 mg PO DAILY [facility]; Protocol Last Admin: 12/23/24 09:08 Dose: 10 mg Documented By: BLANE Atorvastatin Calcium (Atorvastatin Calcium 80 Mg Tablet) 80 mg PO BEDTIME [facility] Last Admin: 12/22/24 20:33 Dose: 80 mg Documented By: VIDHYA Benzocaine (Throat Lozenge, Medicated Lozenge) 1 lozenge MUCOUS MEM Q2H PRN PRN Reason: Sore Throat Calcium Carbonate (Calcium Carbonate 750 Mg Tab.Chew) 750 mg PO Q4H PRN PRN Reason: Heartburn Folic Acid (Folic Acid 1 Mg Tablet) 1 mg PO DAILY [facility] Last Admin: 12/23/24 09:08 Dose: 1 mg Documented By: BLANE Labetalol HCl (Labetalol Hcl 100 Mg/20 Ml Vial) 5 mg IVPUSH Q5MX3 PRN PRN Reason: SBP > 160 Last Admin: 12/21/24 00:59 Dose: 5 mg Documented By: SAM Lisinopril (Lisinopril 40 Mg Tablet) 40 mg PO DAILY [facility]; Protocol Last Admin: 12/23/24 09:08 Dose: 40 mg Documented By: BLANE Magnesium Hydroxide (Milk Of Magnesia 30 Ml Oral.Susp) 30 ml PO DAILY PRN PRN Reason: Constipation Melatonin (Melatonin 3 Mg Tablet) 6 mg PO BEDTIME PRN PRN Reason: Insomnia Metoprolol Succinate (Metoprolol Succinate Er 25 Mg Tab.Er.24h) 25 mg PO DAILY [facility]; Protocol Last Admin: 12/23/24 09:08 Dose: 25 mg Documented By: BLANE Morphine Sulfate (Morphine Sulfate 4 Mg/Ml Cartridge) 2 mg IVPUSH Q4H PRN; Protocol PRN Reason: Pain, Severe (Pain Scale 7-10) Last Admin: 12/21/24 08:39 Dose: 2 mg Documented By: ETHAN Naloxone HCl (Naloxone Hcl 0.4 Mg/Ml Vial) 0.2 mg IVPUSH Q2M PRN PRN Reason: Excessive sedation or RR < 8 Omeprazole (Omeprazole 40 Mg Capsule.Dr) 40 mg PO DAILY@0630 [facility] Last Admin: 12/23/24 05:55 Dose: 40 mg Documented By: VIDHYA Ondansetron HCl (Ondansetron Hcl 4 Mg/2 Ml Vial) 4 mg IVPUSH Q8H PRN PRN Reason: Nausea and Vomiting Oxycodone HCl (Oxycodone Hcl Immed Release 5 Mg Tablet) 5 mg PO Q4H PRN PRN Reason: Pain, Moderate(Pain Scale 4-6) Last Admin: 12/21/24 01:02 Dose: 5 mg Documented By: SAM Sodium Chloride (0.9 % Sodium Chloride Flush 3 Ml Syringe) [facility] Last Admin: 12/23/24 09:15 Dose: 3 ml Documented By: BLANE Temazepam (Temazepam 15 Mg Capsule) 15 mg PO BEDTIME PRN PRN Reason: Insomnia Last Admin: 12/22/24 20:33 Dose: 15 mg Documented By: VIDHYA Labs 12/23/24 08:12 12/22/24 04:18 Labs: Laboratory Results - last 24 hr 12/23/24 08:12 MCV 83.9 MCH 24.6 L MCHC 29.3 L RDW 16.4 H Plt Count 745 H D MPV 8.8 L Absolute Nucleated RBC 0.000 Nucleated RBC % (auto) 0.0 Assessment and Plan (1) Stroke: Status: Acute (2) Polycythemia vera: Status: Acute Plan 74-year-old female, with PMH of paroxysmal AFib on rivaroxaban, PV on hydroxyurea, HTN, presents with left upper extremity weakness, admitted with TIA in the setting of severe bilateral internal carotid artery stenosis, underwent right carotid endarterectomy on 12/20, patient with bleeding from site requiring hold on xarelto and ASA. downgraded from the ICU on 12/21. #TIA w/ left upper extremity weakness w/ b/l critical right RCA stenosis 80-99% and significant left ICA stenosis 75% s/p right endarterectomy on 12/20 #Chronic small-vessel ischemic change #Nonacute right parietal infarct #Nonacute right internal capsule lacunar infarct -Imaging reviewed -Vascular surgery to follow up -Hold aspirin and xarelto in setting of recent bleeding -Continue statin 2ry stroke prevention -Continue neuro checks -Continue monitoring on telemetry -PT/OT #dysphonia, likely 2/2 intubation -throat lozenges ordered #Polycythemia vera-chronic stable -continue hydroxyurea #Thrombocytosis, chronic stable -continue monitoring for bleeding # Paroxysmal atrial fibrillation -hold rivaroxaban in setting of bleeding, monitor for palpitations. Continue metoprolol succinate 25mg qhs Hypertension -continue lisinopril, amlodipine, and metoprolol, with labetalol PRN for SBP greater than 160 GERD-continue PPI DVT prophylaxis: SCDs Disposition: All questions and concerns with the patient were answered to satisfaction. All pertinent clinical documents, images and labs were reviewed. DISCLAIMER: This document was created using voice recognition software. Any mistakes in the prescription are unintentional. An attempt was made to focus for accuracy, but to expedite availability, some errors may persist. Please contact with any need for correction or further clarification Total time managing care of this patient today: 35 minutes. Quality Stroke Does the patient have a stroke diagnosis?: Yes Reason for No Anti-thrombotic by Day Two: N/A - Med Ordered VTE Prior VTE?: No VTE Risk Level:: Medical - moderate - high VTE Device Contraindication: Treatment Not Indicated VTE Drug Contraindication: N/A - Med Ordered
[2024-12-23] MEDS: Throat Lozenge, Medicated LOZENGE 1 LOZENGE MUCOUS MEM ×2 (12:18→20:09)
[2024-12-23 15:27] VITALS: BP 137/73; PULSE 82; RESP 16; TEMP 37.2; O2SAT 99
[2024-12-23 20:00] VITALS: BP 131/78; PULSE 87; RESP 18; TEMP 37.1; O2SAT 97
[2024-12-24] VITALS: BP 143/75; PULSE 73; RESP 17; TEMP 36.2; O2SAT 98
[2024-12-24 03:40] VITALS: BP 124/56; PULSE 60; RESP 18; TEMP 36.5; O2SAT 98
[2024-12-24 05:57] VITALS: BMI 23.9
[2024-12-24 07:12] VITALS: BP 129/67; PULSE 81; RESP 20; TEMP 36.7; O2SAT 96
--- NOTE | 2024-12-24 07:50 | HO.VASCPN ---
Subjective Subjective Date of Service: 12/24/24 Patient reports: no new complaints and feels better Interval history: Patient seen and examined. Doing significantly better. Hemoglobin is stable. Has not had any bleeding episodes over the last 24 hours or so. Physical Exam Vital Signs: Vital Signs: Last Vital Signs Temp 98.1 F 12/24/24 07:12 Pulse 81 12/24/24 07:12 Resp 20 12/24/24 07:12 BP 129/67 12/24/24 07:12 Pulse Ox 96 12/24/24 07:12 O2 Del Method Room Air 12/24/24 07:12 O2 Flow Rate 2 12/20/24 18:54 BMI result Body Mass Index 23.9 Const: General: cooperative, healthy appearing and comfortable Orientation/consciousness: oriented to person, oriented to place and oriented to time HEENT: Head: Yes normal to inspection Neck: Neck: Yes normal visual inspection Carotids: no bruits Chest: Chest palpation & inspection: normal inspection of the chest Resp: Effort & Inspection: normal respiratory effort and able to speak in complete sentences Auscultation: clear to auscultation bilaterally, no crackles, no rales, no rhonchi and no wheezes Cardio: Rate: regular rate Rhythm: regular rhythm Heart sounds: S1 normal heart sound present and S2 normal heart sound present Bruits: no carotid bruits Peripheral pulses: Peripheral pulses 2+ throughout GI: Inspection: Yes normal to inspection Skin: Other: Significant right neck hematoma Wounds: no wounds Hair: normal Neuro: General: oriented to person, oriented to place and oriented to time Cranial nerves: Yes CN's II-XII intact bilaterally and Yes Normal hearing present Cognition (Neuro): normal cognition Motor exam (neuro): 5/5 motor strength present throughout Extrem: Other: venous exam: No significant superficial varicosities or spider telangiectasias, minimal edema General: No clubbing, No cyanosis and No edema Psych: Appearance: grossly normal Mental Status: mental status grossly normal Speech and movement: Normal speech and movement present Progress Note: A&P Assessment and plan (1) Carotid stenosis, right: Status: Acute Assessment and Plan: Stable for discharge status post right carotid endarterectomy would resume aspirin 81 mg only and Xarelto this Tuesday. This was instructed to the patient as well. She can resume normal activities. No driving for 2 weeks. Follow-up with me in approximately 2 weeks time. Should there be any additional bleeding issues I requested the patient call my office. Thank you for allowing us to assist in her care. Time Spent With Patient Time: Total time managing care of this patient today ____ minutes. Procedures Date of Service Date of Service: 12/24/24 Quality Stroke Does the patient have a stroke diagnosis?: Yes Reason for No Anti-thrombotic by Day Two: N/A - Med Ordered VTE Prior VTE?: No VTE Risk Level:: Medical - moderate - high VTE Device Contraindication: Treatment Not Indicated VTE Drug Contraindication: N/A - Med Ordered
[2024-12-24] MEDS: Metoprolol Succinate ER 25 MG TAB.ER.24H PO (09:02)
[2024-12-24] MEDS: 0.9 % Sodium Chloride Flush 3 ML SYRINGE IVFLUSH (09:03)
[2024-12-24 11:17] VITALS: BP 114/60; PULSE 76; RESP 16; TEMP 37.1; O2SAT 97
--- NOTE | 2024-12-24 12:47 | P.DS_ITS ---
DS: Providers Provider Date of Service: 12/24/24 Date of admission: 12/14/24 22:12 Date of discharge: 12/24/24 Primary care physician: Eloy Germain MD Consults: 12/14/24 22:12 Consult to Neurology Routine Consulting Provider: Adeel Zhu Reason for consultation: Left-sided weakness, stroke Has provider been notified: No 12/14/24 23:29 Consult to Vascular Surgery Routine Consulting Provider: [facility] Reason for consultation: Left proximal ICA stenosis 75% + Right proximal ICA occlusion Has provider been notified: Yes 12/16/24 15:10 Consult to Wound Care Routine Consulting Provider: [facility] Wound Care Management Reason for consultation: skin tear to R. forearm 12/17/24 16:07 Consult to Cardiology Routine Consulting Provider: [facility] Cardi[facility] Specialists Reason for consultation: risk strat Has provider been notified: No 12/18/24 16:48 Consult to Vascular Surgery Routine Consulting Provider: [facility] V[facility] Services Reason for consultation: Carotid enarterectomy Attending physician on discharge: Stanley Roberson Discharging clinician: Stanley Roberson DS: Diagnosis Discharge Diagnosis (1) Carotid stenosis, right: Status: Acute DS: Summary Hospital Course Hospital Course: 74-year-old female, with PMH of paroxysmal AFib on rivaroxaban, PV on hydroxyurea, HTN, presents with left upper extremity weakness, admitted with TIA in the setting of severe bilateral internal carotid artery stenosis, underwent right carotid endarterectomy on 12/20, patient with bleeding from site requiring hold on xarelto and ASA. downgraded from the ICU on 12/21. Patient seen by vascular surgery earlier today, suggested on resuming aspirin 81 mg, and Xarelto on Tuesday12/28/2024. Suggested on resuming normal activities, driving for 2 weeks and follow up in [address] Swartz. Patient at this time states that she feels well, eager to be discharged home. #TIA w/ left upper extremity weakness w/ b/l critical right RCA stenosis 80-99% and significant left ICA stenosis 75% s/p right endarterectomy on 12/20 #Chronic small-vessel ischemic change #Nonacute right parietal infarct #Nonacute right internal capsule lacunar infarct -Imaging reviewed -follow up w/ Vascular surgery in two weeks -HOLD aspirin 81mg and xarelto until thursday 12/28. -Continue statin 2ry stroke prevention #Polycythemia vera-chronic stable -continue hydroxyurea #Thrombocytosis, chronic stable -continue monitoring for bleeding # Paroxysmal atrial fibrillation -hold rivaroxaban in setting of bleeding, restart on tuesday. Continue metoprolol succinate 25mg qhs Hypertension -continue lisinopril, amlodipine, and metoprolol GERD-continue PPI All new and continued medications were discussed in depth with the patient, and new prescriptions were given directly to patient and/or verification of the prescriptions were sent to patient's preferred pharmacy directly. All side effects were discussed. Follow-up instructions were given. Patient voiced understanding. Patient was given the opportunity ask questions and express concerns, all of which were answered to their satisfaction. Patient was instructed to follow-up with her PCP within 3 to 10 days of discharge and head to the nearest emergency room or call 911 if symptoms worsen or new symptoms develop. This is a summary of the patient's stay; for more complete details please see chart. More than 35 minutes was spent with patient regarding workup, diagnosis and follow-up. Time Attestation Discharge Coordination Time (in mins): 35 minutes Quality: Safe Use of Opioids Does Pt have an Active Cancer Diagnosis on the Problem List?: No Quality: Stroke Does the patient have a stroke diagnosis?: Yes Reason for No Anti-thrombotic at DC: N/A - Med Ordered Reason for No Anticoagulant at DC: N/A - Med Ordered Reason Not Initiating IV-Tpa: Not indicated Reason for No Anti-thrombotic by Day Two: N/A - Med Ordered Reason for No Statin at DC: N/A - Med Ordered Physical Exam Exam: Exam: General: AxOx3, No acute distress Head: AT/NC ENT: Moist mucous membranes Neck: supple, dressing in place, w. underlying hematoma on right side CVS; RRR, S1 S2 normal Lungs: Clear bilateral breath sounds, no wheezes or crackles Abd: Soft non tender, non distended Ext: No edema and no calf tenderness MSK: moving all 4 limbs Skin: No cyanosis or edema Psych: Cooperative with exam Neurology: no focal deficit Vital Signs: Vital Signs: Last Vital Signs Temp 98.7 F 12/24/24 11:17 Pulse 76 12/24/24 11:17 Resp 16 12/24/24 11:17 BP 114/60 12/24/24 11:17 Pulse Ox 97 12/24/24 11:17 O2 Del Method Room Air 12/24/24 11:17 O2 Flow Rate 2 12/20/24 18:54 BMI result Body Mass Index 23.9 DS: Data Data Completed and Pending Completed studies during hospitalization [Text1]: Pending at discharge 12/20/24 15:15 Surgical [PTH] Routine Procedures Excision of Duodenum, Via Natural or Artificial Opening Endoscopic, Diagnostic (05/09/24) Excision of Esophagogastric Junction, Via Natural or Artificial Opening Endoscopic, Diagnostic (05/09/24) Excision of Stomach, Pylorus, Via Natural or Artificial Opening Endoscopic, Diagnostic (05/09/24) Discharge Plan Discharge Anticipated Discharge Date/Time: 12/24/24 14:34 Patient Disposition: Home Health Service Discharge Diagnosis: TIA, bilateral carotid stenosis s/p right carotid endarterectomy Referrals: [facility] [Outside] - 1 Week Eloy Germain MD [Primary Care Provider, Internal Medicine] - 1 Week Discharge Medications: New atorvastatin 80 mg Tablet 80 mg PO BEDTIME Qty: 30 0RF aspirin 81 mg capsule 81 mg PO DAILY Qty: 60 0RF Continued metoprolol succinate 25 mg tablet extended release 24 hr 25 mg PO DAILY Qty: 90 3RF omeprazole 40 mg capsule,delayed release(DR/EC) 40 mg PO DAILY Qty: 90 0RF temazepam 15 mg capsule 15 mg PO BEDTIME PRN (Reason: Sleep) Qty: 30 1RF acetaminophen 325 mg tablet 975 mg PO Q8H PRN (Reason: Pain) folic acid 1 mg Tablet 1 mg PO DAILY Qty: 90 4RF amlodipine 10 mg tablet 10 mg PO DAILY Linzess 145 mcg capsule 145 mcg PO DAILY PRN (Reason: Constipation) tobramycin-dexamethasone 0.3-0.1 % drops,suspension 1 drp ophthalmic-Left QID lisinopril 40 mg tablet 40 mg PO DAILY Held Xarelto 20 mg tablet 20 mg PO DAILY@1700 Hold Instructions: Resume on 12/28/24. Discharge Orders: Discharge Order (Routine); Ordered 12/24/24 Ordered By: Stanley Roberson Diet: Advance to usual diet Activity on Discharge: As tolerated Stand Alone Forms: Patient Portal Discharge page Print Language: Syriac Activity Restrictions/Additional Instructions: You may shower as early as tomorrow. Take it easy today and you may ambulate around the house. Within 24 hours you can resume normal activity You may climb a flight of stairs as tolerated Do not lift anything heavier than a gallon of milk See Dr. Swartz in follow-up in approximately 2 weeks time. You should already have an appointment if not please call my office at [phone] No driving for 2 weeks Please resume aspirin 81 mg this Tuesday12/28/2024. Resume Xarelto at previous dose starting this Tuesday12/28/2024 If you notice excessive bleeding from the neck please immediately call my office or return to the emergency room, Care Plan Goals: follow up with vascular surgery in 2 weeks continue with dressing changes resume aspirin and xarelto on thursday 12/28 continue atorvastatin 80mg qhs follow up with PCP Health Concerns: Bilateral carotid stenosis Transient ischemic attack Plan of Treatment: continue atorvastatin 80mg qhs resume Aspirin and Xarelto on tuesday12/28/2024 follow up with PCP and Vascular surgery Assessment: 74-year-old female, with PMH of paroxysmal AFib on rivaroxaban, PV on hydroxyurea, HTN, presents with left upper extremity weakness, admitted with TIA in the setting of severe bilateral internal carotid artery stenosis, underwent right carotid endarterectomy on 12/20, patient with bleeding from site requiring hold on xarelto and ASA. downgraded from the ICU on 12/21. Patient seen by vascular surgery earlier today, suggested on resuming aspirin 81 mg, and Xarelto on Tuesday12/28/2024. Suggested on resuming normal activities, driving for 2 weeks and follow up in [address] Swartz. Patient at this time states that she feels well, eager to be discharged home. Patient Instructions: Transient Ischemic Attack (DC), Carotid Artery Disease (DC)
--- NOTE | 2024-12-24 12:58 | W.MHC.F2F ---
Service Date Service Date: 12/24/24 Encounter Date of encounter: 12/24/24 Encounter: Patient seen examined at bedside this morning, patient with recent right carotid endarterectomy, with significant bleeding secondary to recent Xarelto and aspirin use, requiring multiple changes after procedure done on 12/20. Patient at this time with improved bleeding from site, continues with dressing changes. Patient states that she is feeling well, denies any lightheadedness, dizziness, chest pain, palpitations or shortness of breath. Reasons for Services Signs and symptoms assessed: right carotid endarterectomy Reason for intermediate: wound care, postoperative assessment and/or care, medication management and medication treatment Homebound: Leaving the home is medically contraindicated at this time without the asist of a device and/or another person due th the listed conditions above and below. Reason homebound: unable to drive Certification: Based on the above findings, I certify that this patient is confined to the home and needs intermittent intermediate care, physical therapy and/or speech therapy, or continues to need occupational therapy. The patient is under my care, and I have initiated the establishment of the plan of care. The patient will be followed by a physician who will periodically review the plan of care. Time Spent With Patient Time: Total time managing care of this patient today ____ minutes.
--- NOTE | 2024-12-24 13:01 | MHC.CM.PN ---
PT CLEARED TO DC HOME TODAY WITH ANNY VAZQUEZ PT TO ARRANGE TRANSPORT
== END 2024-12-24 14:18 | disposition home health service (06) | DRG 39 ==
LOC: HO.ED 21:40 → HO.EDOVER 22:20 → HO.IMC 22:23 → HO.ICU 12-20 18:44 → HO.IMC 12-22 13:16
PROVIDERS: Hospitalist; Internal Medicine Pulmonary Disease; Registered Nurse Community Health; Surgery Vascular Surgery; Admitting Provider Internal Medicine; Emergency Provider Emergency Medicine Emergency Medical Services; PCP Internal Medicine; Visit Provider Student in an Organized Health Care Education/Training Program
PROC: 03CK0ZZ Extirpation of Matter from Right Internal Carotid Artery, Open Approach (ICD-10-PCS; CPT 35301; principal; 2024-12-20 14:00)
DX: I65.23 Occlusion and stenosis of bilateral carotid arteries (principal); D45 Polycythemia vera; I48.0 Paroxysmal atrial fibrillation; D75.839 Thrombocytosis, unspecified; R49.0 Dysphonia; K21.9 Gastro-esophageal reflux disease without esophagitis; E78.5 Hyperlipidemia, unspecified; I10 Essential (primary) hypertension; Z86.73 Personal history of transient ischemic attack (TIA), and cerebral infarction without residual deficits; Z79.01 Long term (current) use of anticoagulants; Z79.82 Long term (current) use of aspirin; Z79.899 Other long term (current) drug therapy
CPT/HCPCS: 36415; 70450; 70496; 70498; 70544; 71250; 80048; 80061; 80076; 81001; 82040; 82652; 82947; 83735; 84100; 84484; 85025; 85027; 85610; 85730; 86850; 86900; 86901; 87086; 88304; 93005; 93306; 93880; 97110; 97162; 97166; 97530; 99285; A4649; C1768; C9250; J0131; J0690; J1100; J1644; J1920; J2003; J2270; J2404; J2405; J2704; J2795; J3010; J7120; Q9957; Q9967

== ENCOUNTER → 2024-12-14 19:12 | Outpatient (BNV) | payer MEDICARE, SELFPAY | PROVIDERS: Emergency Provider Emergency Medicine Emergency Medical Services; PCP Internal Medicine; Visit Provider Specialist | DX: R07.89 Other chest pain (principal); W19.XXXA Unspecified fall, initial encounter | CPT/HCPCS: 70450; 70496; 70498; 71250 ==

== ENCOUNTER → 2024-12-14 19:14 | Outpatient (BNV) | payer MEDICARE, SELFPAY | PROVIDERS: Admitting Provider Internal Medicine; Emergency Provider Emergency Medicine Emergency Medical Services; PCP Internal Medicine; Visit Provider Internal Medicine | DX: I49.1 Atrial premature depolarization (principal) | CPT/HCPCS: 93010 ==

== ENCOUNTER 2024-12-14 22:12 | Outpatient (BNV) | payer MEDICARE, SELFPAY | END 2024-12-16 14:00 | PROVIDERS: Admitting Provider Internal Medicine; Emergency Provider Emergency Medicine Emergency Medical Services; PCP Internal Medicine; Visit Provider Radiology Diagnostic Radiology | DX: G81.94 Hemiplegia, unspecified affecting left nondominant side (principal) | CPT/HCPCS: 70544 ==

== ENCOUNTER 2024-12-14 22:12 | Outpatient (BNV) | payer MEDICARE, SELFPAY | END 2024-12-15 10:51 | PROVIDERS: Admitting Provider Internal Medicine; Emergency Provider Emergency Medicine Emergency Medical Services; PCP Internal Medicine; Visit Provider Specialist | DX: I65.23 Occlusion and stenosis of bilateral carotid arteries (principal) | CPT/HCPCS: 93880 ==

== ENCOUNTER 2024-12-14 22:12 | Outpatient (BNV) | payer MEDICARE, SELFPAY | END 2024-12-17 07:00 | PROVIDERS: Admitting Provider Internal Medicine; Emergency Provider Emergency Medicine Emergency Medical Services; PCP Internal Medicine; Visit Provider Internal Medicine Cardiovascular Disease | DX: I63.9 Cerebral infarction, unspecified (principal); I51.89 Other ill-defined heart diseases | CPT/HCPCS: 93306 ==

== ENCOUNTER → 2024-12-14 22:12 | Outpatient (BNV) | payer MEDICARE, SELFPAY | PROVIDERS: Admitting Provider Internal Medicine; Emergency Provider Emergency Medicine Emergency Medical Services; PCP Internal Medicine; Visit Provider Internal Medicine Pulmonary Disease | DX: I65.23 Occlusion and stenosis of bilateral carotid arteries (principal); I48.0 Paroxysmal atrial fibrillation; D45 Polycythemia vera | CPT/HCPCS: 99232 ==

== ENCOUNTER → 2024-12-14 22:12 | Outpatient (BNV) | payer MEDICARE, SELFPAY | PROVIDERS: Admitting Provider Internal Medicine; Emergency Provider Emergency Medicine Emergency Medical Services; PCP Internal Medicine; Visit Provider Psychiatry & Neurology Neurology | DX: I65.23 Occlusion and stenosis of bilateral carotid arteries (principal) | CPT/HCPCS: 99223 ==

== ENCOUNTER → 2024-12-14 22:12 | Outpatient (BNV) | payer MEDICARE, SELFPAY | PROVIDERS: Admitting Provider Internal Medicine; Emergency Provider Emergency Medicine Emergency Medical Services; PCP Internal Medicine; Visit Provider Internal Medicine Cardiovascular Disease | DX: Z01.810 Encounter for preprocedural cardiovascular examination (principal) | CPT/HCPCS: 99222 ==

== ENCOUNTER → 2024-12-14 22:12 | Outpatient (BNV) | payer MEDICARE, SELFPAY | PROVIDERS: Admitting Provider Internal Medicine; Emergency Provider Emergency Medicine Emergency Medical Services; PCP Internal Medicine; Visit Provider Registered Nurse Community Health | DX: G45.9 Transient cerebral ischemic attack, unspecified (principal) | CPT/HCPCS: 99291 ==

== ENCOUNTER → 2024-12-14 22:12 | Outpatient (BNV) | payer MEDICARE, SELFPAY | PROVIDERS: Admitting Provider Internal Medicine; Emergency Provider Emergency Medicine Emergency Medical Services; PCP Internal Medicine; Visit Provider Surgery Vascular Surgery | DX: I65.21 Occlusion and stenosis of right carotid artery (principal) | CPT/HCPCS: 99222; 99232 ==

== ENCOUNTER → 2024-12-14 22:12 | Outpatient (BNV) | payer MEDICARE, SELFPAY | PROVIDERS: Admitting Provider Internal Medicine; Emergency Provider Emergency Medicine Emergency Medical Services; PCP Internal Medicine; Visit Provider Internal Medicine | DX: I48.0 Paroxysmal atrial fibrillation (principal); I65.23 Occlusion and stenosis of bilateral carotid arteries; I10 Essential (primary) hypertension; R62.7 Adult failure to thrive; E87.6 Hypokalemia; E83.42 Hypomagnesemia; D47.1 Chronic myeloproliferative disease; D45 Polycythemia vera; G89.0 Central pain syndrome; I63.233 Cerebral infarction due to unspecified occlusion or stenosis of bilateral carotid arteries | CPT/HCPCS: 99232; 99233; 99499 ==

== ENCOUNTER 2024-12-25 08:44 | Inpatient (IN) | payer MEDICARE, SELFPAY ==
--- OUTSIDE RECORDS SUMMARY | 2023-09-12 05:30 | XMS_ITS ---
Author Organization [facility] Address [address] [facility] [place] [address] Care Team Providers Care Automotive Generator Repairer Name Role Phone Ross Moran MD Primary Care Provider Unavaila Emerson Dailey Unavailable [phone] Allergies Allergen (clinical drug ingredient) Drug/Non Drug [...] 09/12/2023 Encounters Encounter Location Date Provider [facility] [address] [place] [address] 09/12/2023 Emerson Elliott Plan Of Treatment No Information Progress Notes * EARLTasneemDunia LDOB:[birth year] (74 yo F)Acc No.[id number]:09/12/2023 Progress Notes Patient: Dunia PERRY Provider: Thien Mcbride DPM :1950 A ge:73 Y S ex:Female Date:09/12/2023 Address:[address] [place], [place] [id number] Pcp:Ross Moran MD Subjective: * Chief Complaints: [...] enies. C ardiovascular: Pacemaker d enies. M SHERIFF'S OFFICER d enies. W PW d enies. C [...] 0 09/12/2023 Generated for Yodit mullen/Sim/Perry on: 02/25/2024 11:14 AM EST
--- OUTSIDE RECORDS SUMMARY | 2024-04-09 08:15 | XMS_ITS ---
Author Organization [facility] Address [address] [place] [address] Care Team Providers Care Direct Mail Clerk Name Role Phone CYNTHIA HERNANDEZ Primary Care Provider Simone Bennett Jr REASON FOR VISIT rectal bleed Encounters Encounter Location Date Provider Diagnosis [facility] [address] [address] [place] [address] 04/09/2024 Simone Craig Jr Plan Of Treatment Next Appt Details Provider Name:Simone stephens Jr, 09/05/2025 01:35:00 PM, [address], [address], [place], [address], Progress Notes * SINGHSHEA RICHARDRICIA LDOB:[birth year] (74 yo F)Acc No.[id number]:04/09/2024 Progress Notes Patient: ILDA PERRY Provider: Stephen Craig MD :1950 A ge:74 Y S ex:Female Date:04/09/2024 Address:[address] [place] [address] [address], [place] Pcp:CYNTHIA HERNANDEZ Subjective: * Chief Complaints: * 1 . Rectal bleed. * Medical History: Objective: * Vitals: Assessment: Plan: * Treatment: * * The named appointment provid er may or may not be the originator of this progress note, and it is not deemed complete until electronically signed by the appointment provider. Sign off status: Pending * Provider: Stephen Craig MD Date: 0 04/09/2024 Generated for Yodit mullen/Sim/Perry on: 02/25/2024 11:15 AM EST
--- OUTSIDE RECORDS SUMMARY | 2024-05-16 09:00 | XMS_ITS ---
Author Organization [facility] Address [address] [place] [address] Care Team Providers Care Assistant Mechanic Name Role Phone YCNTHIA HERNANDEZ Primary Care Provider Simone Bennett Jr REASON FOR VISIT nausea/vomiting, anorexia Encounters Encounter Location Date Provider Diagnosis [facility] [address] [place] [id number] 05/16/2024 Simone Craig Jr Plan Of Treatment Next Appt Details Provider Name:Simone stephens Jr, 09/05/2025 01:35:00 PM, [address], [address], [place], [address], Progress Notes * ILDA WINTERS LDOB:[birth year] (74 yo F)Acc No.[id number]:05/16/2024 EGD/MAC Patient: SHEA PERRYTYSHAWN Simental Provider: Stephen Craig MD :1950 A ge:74 Y S ex:Female Date:05/16/2024 Address:[address] [place] [address] [address], [id number] Pcp:CYNTHIA HERNANDEZ Subjective: * Chief Complaints: * 1 . Nausea/vomiting, anorexia. * Medical History: Objective: * Vitals: Assessment: Plan: * Treatment: * * The named appointment provid er may or may not be the originator of this progress note, and it is not deemed complete until electronically signed by the appointment provider. Sign off status: Pending * Provider: Stephen Craig MD Date: 0 05/16/2024 Generated for Yodit mullen/Sim/Perry on: 02/25/2024 11:15 AM EST
--- OUTSIDE RECORDS SUMMARY | 2024-05-25 05:00 | XMS_ITS ---
Author Organization [facility] Address [address] [facility] [address] [place] [address] Care Team Providers Care Director Of Testing Name Role Phone CYNTHIA HERNANDEZ Primary Care Provider Simone Bennett Jr [phone] REASON FOR VISIT wt loss,early satiety,colitis Encounters Encounter Location Date Provider Diagnosis [facility] [place] [address] [place] [id number] 05/25/2024 Simone Craig Jr Plan Of Treatment Next Appt Details Provider Name:Simone stephens Jr, 09/05/2025 01:35:00 PM, [address] [facility], [address], [place], [address], Progress Notes * ILDA WINTERS LDOB:[birth year] (74 yo F)Acc No.[id number]:05/25/2024 EGD and COL/MAC Patient: Kamille MARTINEZ ILDA Simental Provider: Stephen Craig MD :1950 A ge:74 Y S ex:Female Date:05/25/2024 Address:[address] [place] [address] [address], [id number] Pcp:CYNTHIA HERNANDEZ Subjective: * Chief Complaints: * 1 . Wt loss,early satiety,colitis. * Medical History: Objective: * Vitals: Assessment: Plan: * Treatment: * * The named appointment provid er may or may not be the originator of this progress note, and it is not deemed complete until electronically signed by the appointment provider. Sign off status: Pending * Provider: Stephen Craig MD Date: 0 05/25/2024 Generated for Yodit mullen/Sim/Perry on: 02/25/2024 11:15 AM EST
[2024-12-25] VITALS (10 sets, daily range): BP systolic 119–174; BP diastolic 67–83; PULSE 63–88; RESP 14–20; TEMP 36.6–36.8; O2SAT 95–100; BMI 23.9
--- NOTE | 2024-12-25 | ECG_ITS ---
Test Reason : FALL/NEW ONSET WEAKNESS Blood Pressure : */* mmHG Vent. Rate : 70 BPM Atrial Rate : 70 BPM P-R Int : 174 ms QRS Dur : 90 ms QT Int : 392 ms P-R-T Axes : 77 41 17 degrees QTcB Int : 423 ms Sinus rhythm with Premature atrial complexes Otherwise normal ECG When compared with ECG of 14-Dec-2024 19:37, Premature atrial complexes are now Present Referred By: Jeaneth Stevens Electronically Signed By: TANVIR SCANLON MD
--- NOTE | ~2024-12-25 | CT_ITS ---
EXAMINATION: CT HEAD WITHOUT CONTRAST (STROKE PROTOCOL) CLINICAL INFORMATION: Left-sided facial droop. MRI brain dated December 25, 2024 demonstrated watershed distribution acute stroke left greater than right MCA. COMPARISON: Correlated to MRI brain dated December 25, 2024. TECHNIQUE: Contiguous axial imaging was performed from the skull base to vertex without intravenous administration of contrast. This CT examination was performed using dose optimization techniques as appropriate, variously including the following: *Automated exposure control *Adjustment of mA and/or kV according to patient size (this includes techniques or standardized protocols for targeted exams where dose is matched to indication/reason for exam; i.e. extremities or head) *Use of iterative reconstruction technique DLP: 741 mGy-cm FINDINGS: No acute intracranial hemorrhage, mass effect, midline shift, hydrocephalus or herniation. Stable appearance of the multifocal patchy and confluent deep periventricular white matter hypodensities. CT/CT head for STROKE IMPRESSION: No hemorrhagic components in the watershed distribution ischemia/stroke. EXAMINATION: CTA NECK WITH CONTRAST (STROKE) CTA BRAIN WITH CONTRAST (STROKE) CLINICAL INFORMATION: Acute stroke with new left-sided facial droop. COMPARISON: December 25, 2024. TECHNIQUE: CTA of the head and neck was performed in the axial plane from the mediastinum to the skull vertex using 70 mL Omnipaque 350 intravenous contrast. Additional reformatted multiplanar images including maximum intensity projection MIP images are generated on the CT workstation. This CT examination was performed using dose optimization techniques as appropriate, variously including the following: *Automated exposure control *Adjustment of mA and/or kV according to patient size (this includes techniques or standardized protocols for targeted exams where dose is matched to indication/reason for exam; i.e. extremities or head) *Use of iterative reconstruction technique DLP: 656 mGy-cm No sagittal or coronal reformatted images obtained from the source images. Only MIP sequences are provided. FINDINGS: The degree of stenosis determined by criteria similar to NASCET. Chest CTA: No aneurysm or dissection, thoracic aorta. Calcified plaques. Neck CTA: 4.7 x 3.8 x 7.0 cm heterogeneous mixed layering hematoma without IV contrast extravasation centered in the right carotid compartment from the hyoid bone to the thyroid gland levels in the craniocaudal dimension and laterally extending into the platysma. Right CCA: Mixed plaques. Normal patency. No focal stenosis. No gross intimal flap. No IV contrast extravasation. Right ICA: Irregularities in the proximal segment with intraluminal abnormality. Normal patency. No focal stenosis. No IV contrast dilatation. Left CCA: Normal patency. No focal stenosis. No intimal flap. Tortuosity. Retropharyngeal trajectory. Left ICA: Mixed plaques in the carotid bulb and proximal ICA representing 90% stenosis. Intraluminal abnormality is in the proximal segment. V1/V2 segments: Tortuosity. Normal patency. No focal stenosis. No intimal flap. Left vertebral artery is dominant. Brain CTA: Anterior cerebral circulation: ICAs: Calcified plaques in the cavernous supracavernous segments. Normal patency. No focal stenosis or abrupt cut off. MCA's: No focal stenosis or abrupt cut off in the M1 M2 segments, left MCA. There is asymmetric and decreased IV contrast enhancement of the opercular branches and the left MCA. Right MCA demonstrates normal patency without focal stenosis or abrupt cut off. ACAs: Normal patency without focal stenosis or abrupt cut off. Anterior communicating artery is patent. Ophthalmic arteries are patent. Posterior communicating arteries are patent. Posterior cerebral circulation: V3/V4 segments are patent without focal stenosis or intimal flap. Basilar artery is patent without focal stenosis or intimal flap. preparer making department: Normal patency without focal stenosis or abrupt cut off. Superior cerebellar arteries are patent. Posterior inferior cerebellar arteries are patent. Anterior inferior cerebral arteries are patent. IMPRESSION: 4.7 x 3.8 x 7.0 cm acute subacute hematoma/hemorrhage, right carotid compartment without active IV contrast extravasation. Decreased IV contrast enhancement of the opercular branches left MCA without a focal embolus. 90% stenosis secondary to mixed plaque in the left ICA with the questionable intraluminal dislodged components in the proximal segment. This critical result was discussed with requesting physician Dr. Grayson Allred at 1:24 PM hours on December 28, 2024 [email or web address] connect.. It was ascertained that the content and urgency of the report was understood at the time of direct communication. Electronically signed by: Errol Fuller MD 12/28/2024 01:43 PM EST
--- NOTE | ~2024-12-25 | CT_ITS ---
CLINICAL HISTORY: Hx hematoma right carotid compartment --- Additional Notes or Special Instructions: anticoagulation recently restarted CT angiography neck with contrast. 3D Postprocessing. Comparison: CT/REG/SR - CT HEAD NECK ANGIOGRAPHY WITH IV CONTRAST STROKE - 12/28/24 13:11 EST Findings: AORTIC ARCH: Normal aortic arch. No high-grade stenosis. R COMMON CAROTID: No hemodynamically significant stenosis or dissection. R INTERNAL CAROTID: No hemodynamically significant stenosis or dissection. Mild atherosclerotic plaque. R EXTERNAL CAROTID: Similar appearance of filling defect within the right external carotid artery. R VERTEBRAL: No high-grade stenosis or dissection. L COMMON CAROTID: No hemodynamically significant stenosis or dissection. L INTERNAL CAROTID: Moderate atherosclerotic calcifications and plaque burden causing greater than 50% narrowing at the bifurcation. L EXTERNAL CAROTID: No hemodynamically significant stenosis or dissection. L VERTEBRAL: No high-grade stenosis or dissection. LUNG APEX: Limited views of the lung apices are clear. SOFT TISSUES: Right carotid space hematoma measures 4.3 x 3.8 cm on today's exam, previously 4.0 x 4.6 cm on 12/28/2024. LIMITED SPINE: No evidence of fracture on limited views. IMPRESSION: Similar size of right carotid space hematoma measuring 4.3 x 3.8 cm on today's exam. No active arterial hemorrhage. Similar appearance of filling defect in the right external carotid artery, may represent unstable plaque versus focal dissection. This document has been electronically signed by: Deb Coyne MD on 12/31/2024 22:44:10
--- NOTE | ~2024-12-25 | CT_ITS ---
EXAMINATION: CT HEAD WITHOUT CONTRAST (STROKE PROTOCOL) CLINICAL INFORMATION: Left-sided facial droop. MRI brain dated December 25, 2024 demonstrated watershed distribution acute stroke left greater than right MCA. COMPARISON: Correlated to MRI brain dated December 25, 2024. TECHNIQUE: Contiguous axial imaging was performed from the skull base to vertex without intravenous administration of contrast. This CT examination was performed using dose optimization techniques as appropriate, variously including the following: *Automated exposure control *Adjustment of mA and/or kV according to patient size (this includes techniques or standardized protocols for targeted exams where dose is matched to indication/reason for exam; i.e. extremities or head) *Use of iterative reconstruction technique DLP: 741 mGy-cm FINDINGS: No acute intracranial hemorrhage, mass effect, midline shift, hydrocephalus or herniation. Stable appearance of the multifocal patchy and confluent deep periventricular white matter hypodensities. CT/CT angio head neck STROKE IMPRESSION: No hemorrhagic components in the watershed distribution ischemia/stroke. EXAMINATION: CTA NECK WITH CONTRAST (STROKE) CTA BRAIN WITH CONTRAST (STROKE) CLINICAL INFORMATION: Acute stroke with new left-sided facial droop. COMPARISON: December 25, 2024. TECHNIQUE: CTA of the head and neck was performed in the axial plane from the mediastinum to the skull vertex using 70 mL Omnipaque 350 intravenous contrast. Additional reformatted multiplanar images including maximum intensity projection MIP images are generated on the CT workstation. This CT examination was performed using dose optimization techniques as appropriate, variously including the following: *Automated exposure control *Adjustment of mA and/or kV according to patient size (this includes techniques or standardized protocols for targeted exams where dose is matched to indication/reason for exam; i.e. extremities or head) *Use of iterative reconstruction technique DLP: 656 mGy-cm No sagittal or coronal reformatted images obtained from the source images. Only MIP sequences are provided. FINDINGS: The degree of stenosis determined by criteria similar to NASCET. Chest CTA: No aneurysm or dissection, thoracic aorta. Calcified plaques. Neck CTA: 4.7 x 3.8 x 7.0 cm heterogeneous mixed layering hematoma without IV contrast extravasation centered in the right carotid compartment from the hyoid bone to the thyroid gland levels in the craniocaudal dimension and laterally extending into the platysma. Right CCA: Mixed plaques. Normal patency. No focal stenosis. No gross intimal flap. No IV contrast extravasation. Right ICA: Irregularities in the proximal segment with intraluminal abnormality. Normal patency. No focal stenosis. No IV contrast dilatation. Left CCA: Normal patency. No focal stenosis. No intimal flap. Tortuosity. Retropharyngeal trajectory. Left ICA: Mixed plaques in the carotid bulb and proximal ICA representing 90% stenosis. Intraluminal abnormality is in the proximal segment. V1/V2 segments: Tortuosity. Normal patency. No focal stenosis. No intimal flap. Left vertebral artery is dominant. Brain CTA: Anterior cerebral circulation: ICAs: Calcified plaques in the cavernous supracavernous segments. Normal patency. No focal stenosis or abrupt cut off. MCA's: No focal stenosis or abrupt cut off in the M1 M2 segments, left MCA. There is asymmetric and decreased IV contrast enhancement of the opercular branches and the left MCA. Right MCA demonstrates normal patency without focal stenosis or abrupt cut off. ACAs: Normal patency without focal stenosis or abrupt cut off. Anterior communicating artery is patent. Ophthalmic arteries are patent. Posterior communicating arteries are patent. Posterior cerebral circulation: V3/V4 segments are patent without focal stenosis or intimal flap. Basilar artery is patent without focal stenosis or intimal flap. 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 Superior cerebellar arteries are patent. Posterior inferior cerebellar arteries are patent. Anterior inferior cerebral arteries are patent. IMPRESSION: 4.7 x 3.8 x 7.0 cm acute subacute hematoma/hemorrhage, right carotid compartment without active IV contrast extravasation. Decreased IV contrast enhancement of the opercular branches left MCA without a focal embolus. 90% stenosis secondary to mixed plaque in the left ICA with the questionable intraluminal dislodged components in the proximal segment. This critical result was discussed with requesting physician Dr. Grayson Allred at 1:24 PM hours on December 28, 2024 via[employer] [employer] connect.. It was ascertained that the content and urgency of the report was understood at the time of direct communication. Electronically signed by: Errol Fuller MD 12/28/2024 01:43 PM EST
--- NOTE | ~2024-12-25 | CT_ITS ---
EXAMINATION: CT HEAD WITHOUT CONTRAST (STROKE PROTOCOL) CLINICAL INFORMATION: Left-sided weakness. Concerning for acute stroke. COMPARISON: December 14, 2024. TECHNIQUE: Contiguous axial imaging was performed from the skull base to vertex without intravenous administration of contrast. This CT examination was performed using dose optimization techniques as appropriate, variously including the following: *Automated exposure control *Adjustment of mA and/or kV according to patient size (this includes techniques or standardized protocols for targeted exams where dose is matched to indication/reason for exam; i.e. extremities or head) *Use of iterative reconstruction technique DLP: 717 mGy-cm FINDINGS: Bilateral multifocal patchy and confluent hypodensities involving centrum semiovale and palmer radiata both hemispheres. Focal encephalomalacia, right parietal/precuneus. Old lacunar infarcts, right basal ganglia and right frontal palmer radiata. No acute intracranial hemorrhage, mass effect, midline shift, hydrocephalus or herniation. No increased density in the MCA. Arboleda-white matter differentiation is normal. Prominence of the extra-axial CSF spaces cerebral sulci and ventricles. Calcified plaques in the cavernous supracavernous segments both ICAs. Posterior cranial fossa contents demonstrated no gross mass effect or hemorrhage. Normal position of the cerebellar tonsils. Sellar/suprasellar region demonstrated no gross masses. No air-fluid levels in the paranasal sinuses. Tympanic cavities and mastoid cells are aerated. CT/CT head for STROKE IMPRESSION: No acute intracranial hemorrhage. White matter disease likely related to small vessel occlusive disease. Prior vascular insult, right MCA territory. This critical result was discussed with emergency physician Dr. Jeaneth Stevens at 9:45 AM hours on December 25, 2024.. It was ascertained that the content and urgency of the report was understood at the time of direct communication. EXAMINATION: CTA NECK WITH CONTRAST (STROKE) CTA BRAIN WITH CONTRAST (STROKE) CLINICAL INFORMATION: Left-sided weakness. Concerning acute stroke. COMPARISON: December 14, 2024. TECHNIQUE: CTA of the head and neck was performed in the axial plane from the mediastinum to the skull vertex using 70 mL Omnipaque 350 intravenous contrast. Additional reformatted multiplanar images including maximum intensity projection MIP images are generated on the CT workstation. This CT examination was performed using dose optimization techniques as appropriate, variously including the following: *Automated exposure control *Adjustment of mA and/or kV according to patient size (this includes techniques or standardized protocols for targeted exams where dose is matched to indication/reason for exam; i.e. extremities or head) *Use of iterative reconstruction technique DLP: 686 mGy-cm FINDINGS: The degree of stenosis determined by criteria similar to NASCET. Chest CTA: No aneurysm or dissection, thoracic aortic arch included in the exam. Calcified plaque in the inferior aspect aortic arch wall and the origin of the main branches. Neck CTA: There is a 4 x 4 x 8 cm heterogeneous mixed low and high density abnormality centered in the right carotid compartment extending laterally from the carotid bulb and right ICA into the platysma from the hyoid bone level to the thyroid gland level in the craniocaudal dimensions.. There is mass effect upon the adjacent structures, right submandibular gland and the sternocleidomastoid muscle. I do not see IV contrast extravasation. Tiny air bubbles are present. There is irregular noncalcified abnormality along the distal right CCA without IV contrast extravasation. Right CCA: Normal patency. No focal stenosis. Irregular lateral wall with intraluminal filling defects. Right ICA: Irregular shaped noncalcified plaque. Intraluminal abnormalities extending from the carotid bulb to the proximal segment of the right ICA as well at this right external carotid artery. Left CCA: Normal patency. No focal stenosis. No intimal flap. Tortuosity. Retropharyngeal trajectory resulting in mass effect upon the left lateral wall of the esophagus. Left ICA: Mixed plaques in the carotid bulbs and proximal ICAs representing 90% stenosis. Intraluminal noncalcified abnormality in the proximal to mid segment left ICA. Tortuosity. V1/V2 segments: Normal patency. No focal stenosis. No intimal flap. Left vertebral artery is dominant. The origin from the subclavian arteries. Brain CTA: Anterior cerebral circulation: ICAs: Calcified plaques in the cavernous supracavernous segments. Normal patency. No focal stenosis. No intimal flap. MCA's: Normal patency. No focal stenosis. No abrupt cut off. ACAs: Hypoplastic/atretic right A1 segment. No focal stenosis. No abrupt cut off. Anterior, extending artery is patent. Ophthalmic arteries are patent without gross abnormality. Posterior communicating arteries are patent without gross abnormality. Posterior cerebral circulation: V3/V4 segments: Normal patency. No intimal flap. No focal stenosis. Left vertebral artery is dominant. Posterior inferior cerebral arteries are patent without gross abnormality. Basilar artery is patent without focal stenosis or intimal flap. Anterior inferior cerebral arteries are patent. Superior cerebellar arteries are patent without gross abnormality. 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 Normal patency. No abrupt cut off. IMPRESSION: 8 x 4 x 4 cm acute to subacute hematoma/hemorrhage, right carotid compartment without gross active extravasation. Intraluminal flaps/noncalcified plaques right ICA and distal right CCA. Mixed plaques representing 90% stenosis, left ICA. No main cerebral artery occlusion or embolus. This critical test result is communicated to: Emergency physician Dr. Jeaneth Stevens at 9:45 AM on December 25, 2024 Electronically signed by: Errol Fuller MD 12/25/2024 10:16 AM [facility]
--- NOTE | ~2024-12-25 | MR_ITS ---
EXAMINATION: MR BRAIN WITHOUT CONTRAST CLINICAL INFORMATION: Rule out CVA COMPARISON: CT brain 12/25/2024.. TECHNIQUE: MRI of the brain was obtained using routine sequences without contrast. FINDINGS: There are multiple left frontal, parietal and occipital cortical-based restricted diffusion with corresponding abnormality on ADC map consistent with acute infarct likely showered emboli or vasculitis. Similar findings are seen in right parietal cortical gyri. There is no corresponding susceptibility artifact to suspect any underlying hemorrhage. There is T2 FLAIR signal changes in the right posterior parietal and periventricular region of right frontal lobe suggestive old infarct/encephalomalacia. There is no mass effect, edema or midline shift. Also visualized is a round T2 FLAIR signal lesion in the deep white matter of right frontal lobe precentral gyrus likely lacunar infarction or chronic small vessel ischemic change. The lateral ventricles are symmetrical in size and mildly enlarged. Normal flow-void signal changes are seen in major cerebral vasculature. However the visualized major intracranially arteries appear smaller caliber. Bilateral optic nerves, optic globes and the paranasal sinuses are grossly unremarkable the scalp soft tissues are normal. MR/MR head/brain wo con IMPRESSION: [Frontal, parietal and occipital cortical-based acute infarction likely secondary to showered emboli or vasculitis. Small area of right parietal cortical acute infarction is noted as well. There is no acute bleed seen. Encephalomalacia right posterior parietal lobe and periventricular white matter frontal lobe. Chronic small vessel ischemia changes in the periventricular region of both cerebral hemispheres especially in the right centrum semiovale. Results were immediately tiger text. to Dr Stanley Roberson at 4:36 PM. It was made aware of acute results. Electronically signed by: Frank Ceja MD 12/25/2024 04:46 PM [facility]
--- NOTE | 2024-12-25 09:10 | ED.GENADULT ---
HPI - General Adult General Chief complaint: Stroke Stated complaint: WEAKK,FALL T-1 W/BACK PAIN,RECENT D/C WTIA PER EMS Time Seen by Provider: 12/25/24 08:57 History of Present Illness ED Provider: Dr. Stevens HPI narrative: 74 y/o F patient; PMH bilateral carotid artery stenosis, hx CVA, myeloproliferative neoplasm, polycythemia vera, atrial fibrillation, HTN; presents from home with son and friend via EMS. The patient was discharged from this hospital on 12/24 s/p right carotid endarterectomy on 12/20. Her course was complicated by post-operative bleeding requiring holding her aspirin and xarelto. Her friend provides history. Patient was well leaving the hospital however when they arrived to her home she was confused and attempted to exit the car from the city driver seat even though she was in the passenger seat. Her friend tucked her into bed and returned this morning to find her on the ground. She was able to get the patient up and they went to the bathroom together. While in the bathroom she suddenly became unresponsive, before coming to again and stating something felt wrong. No further trauma at that time. The patient states she feels like her spatial sense is off and she has a severe frontal headache. Related Data Home Medications ?Medication ?Instructions ?Recorded ?Confirmed lisinopril 40 mg tablet 40 mg PO DAILY 03/10/21 12/25/24 acetaminophen 325 mg tablet 975 mg PO Q8H PRN Pain 05/09/24 12/25/24 amlodipine 10 mg tablet 10 mg PO DAILY 10/02/24 12/25/24 rivaroxaban 20 mg tablet (Xarelto) 20 mg PO DAILY@1700 12/14/24 12/25/24 Held on 12/24/24. Instructions: Resume on 12/28/24. linaclotide 145 mcg capsule 145 mcg PO DAILY PRN Constipation 12/15/24 12/25/24 (Linzess) tobramycin 0.3 %-dexamethasone 0.1 1 drp ophthalmic-Left QID 12/15/24 12/25/24 % eye drops,suspension Previous Rx's ?Medication ?Instructions ?Recorded metoprolol succinate 25 mg 25 mg PO DAILY #90 tabs 09/28/23 tablet,extended release 24 hr folic acid 1 mg tablet 1 mg PO DAILY #90 tabs 08/20/24 omeprazole 40 mg capsule,delayed 40 mg PO DAILY #90 caps 09/17/24 release temazepam 15 mg capsule 15 mg PO BEDTIME PRN Sleep #30 caps 10/26/24 aspirin 81 mg capsule 81 mg PO DAILY #60 caps 12/24/24 atorvastatin 80 mg tablet 80 mg PO BEDTIME #30 tabs 12/24/24 Allergies Allergy/AdvReac Type Severity Reaction Status Date / Time diphenhydramine AdvReac Anxiety Verified 12/25/24 09:26 Review of Systems Review of Systems: Yes all other systems are reviewed and are negative [facility] Past Medical History Attestation statement: The following information was validated with the patient. Source: old records reviewed Medical History Polycythemia vera Postoperative nausea Osteopenia Hx of Lyme disease GERD (gastroesophageal reflux disease) Paroxysmal atrial fibrillation HTN (hypertension) Persistent atrial fibrillation Surgical History History of total right knee replacement History of esophagogastroduodenoscopy (EGD) Hx of section Hx of hysterectomy Hx of colonoscopy (~08/13/21) Hx of appendectomy Family History Family History Father Cancer Stroke Mother Diabetes Social History Social History Household Members: None Housing: House Are you a primary wound care center consultant to a significant other at home: Yes ( with Alzheimer's and Parkinson's) Do you presently have visiting nurse or other home services: No Comment: medicated Patient Tobacco Use Status: Never used Tobacco Smoked in Last 30 Days: No e-Cigarette/Vaping Use: Never Used Second Hand Smoke Exposure: No Use of substances other than those prescribed or required for medical reasons: No Advance Directives: Yes Advance Directives on File: Yes Advance Directives Date on File: 03/11/21 Do you have a plan to hurt others: No Plan service: No Current occupational status: retired Current occupational exposures/hazards: No Cognitive needs: Yes (walker) Hearing needs: No Vision needs: Yes (Rx glasses) Physical Exam ED Vital Signs: Vital Signs - 24 hr 12/25/24 09:21 12/25/24 10:12 12/25/24 12:00 Temperature 98.2 F Pulse Rate 73 71 73 Respiratory Rate 16 16 18 Blood Pressure 139/81 136/73 132/70 Pulse Oximetry 100 99 96 Oxygen Delivery Method Room Air Room Air Room Air BMI result Body Mass Index 23.9 Patient is afebrile and hemodynamically stable. Const General: cooperative Orientation/consciousness: patient oriented x3 HENMT Head: Yes normal to inspection and Yes atraumatic Eyes General: appearance normal, both eyes and all related structures Pupils: Equal, round and reactive pupils present EOM: EOMs intact bilaterally Neck Other: Right sided tegaderm with large amount of blood clot. + Hematoma. Under dressing incision site is c/d/i. + surrounding ecchymosis. No active bleeding. Chest Chest palpation & inspection: normal inspection of the chest and normal palpation of entire chest wall Resp Effort & Inspection: normal respiratory effort, able to speak in complete sentences and no cough Auscultation: clear to auscultation bilaterally Cardio Rate: regular rate Rhythm: regular rhythm Peripheral pulses: Peripheral pulses 2+ throughout GI Inspection: Yes normal to inspection, No Abdominal wall edema and No distended Palpation (GI): Soft to palpation, not firm, nontender, no guarding and not rigid Auscultation: normal bowel sounds Back/Spine/Pelvis Back: No back tenderness Neuro Other: + Past pointing LUE Normal finger to nose RUE Strength 5/5 bilateral lower extremities Strength 5/5 bilateral upper extremities Sensation intact all extremities + mild drift LUE No drift RUE Mild word finding difficulty without slurred speech General: patient oriented x3 Cranial nerves: Yes Equal, round and reactive pupils present NIH Stroke Scale Level of Consciousness: Alert Level of Consciousness Questions: Answers both questions correctly Level of Consciousness Commands: Performs both tasks correctly Best Gaze: Normal Visual: No visual loss Facial Palsy: Normal Motor Arm (Right): No drift Motor Arm (Left): Drift Motor Leg (Right): No drift Motor Leg (Left): No drift Limb Ataxia: Absent Sensory: Normal Best Language: Mild to moderate aphasia Dysarthia: Normal Extinction and Inattention: No abnormality Score: 2 Course Course Course Narrative: Requested to see patient immediately due to high risk of life threatening deterioration in condition. Notified as code stroke and patient sent to CT imaging. NIHSS 2 for + LUE drift, + mild aphasia. Patient is NOT a tnk candidate as she is outside a 4 hour window and had recent endarterectomy. Right sided surgical site with large hematoma and clotted blood. Family at bedside however report it appears improved from yesterday. Dressing changed and no active bleeding. Vascular surgery Dr. Swartz made aware of patient in the emergency department. CT notable for 8 x 4 x 4cm acute to subacute hematoma of the right carotid compartment without gross active extravasation. Intraluminal flaps/non-calcified plaques in the right ICA and distal right CCA. No main cerebral artery occlusion emboli. Labs reviewed. No significant leukocytosis. Mild anemia Hgb 11.2, not significantly different than Hgb 11 on 12/23. Cr 1.17. Plan: Admit to hospitalist Condition: Stable Medications Administered Discontinued Medications Generic Name Dose Route Start Last Admin Trade Name Freq PRN Reason Stop Dose Admin Iohexol 100 ml 12/25/24 09:42 12/25/24 09:43 Iohexol 350 Mg/Ml 100 Ml Infus..Btl IV 12/25/24 09:43 70 ml ONCE ONE Administration Medical Decision Making Lab Data 12/25/24 09:58 12/25/24 09:58 Labs: Lab Results 12/25/24 12/25/24 Range/Units 09:24 09:58 WBC 9.7 (4.8-10.8) X10*3/uL RBC 4.50 (4.20-5.50) X10*6/uL Hgb 11.2 L (12.0-16.0) g/dl Hct 37.1 (37.0-47.0) % MCV 82.4 (80.0-98.0) fL MCH 24.9 L (27.0-33.0) pg MCHC 30.2 L (31.0-35.0) g/dl RDW 16.0 (11.0-16.0) % Plt Count 644 H (160-400) X10*3/uL MPV 8.4 L (9.4-12.3) fL Immature Gran % (Auto) 0.6 H (0.0-0.4) % Neut % (Auto) 73.7 H (45-73) % Lymph % (Auto) 17.2 L (20-40) % [place] % (Auto) 7.2 (2-11) % Eos % (Auto) 0.8 (0-4) % Baso % (Auto) 0.5 (0-2) % Lymph # (Auto) 1.7 (1.2-4.9) X10*3/uL [place] # (Auto) 0.7 (0.1-1.2) X10*3/uL Eos # (Auto) 0.1 (0.0-0.4) X10*3/uL Baso # (Auto) 0.1 (0.0-0.2) X10*3/uL Abs Immat Gran (auto) 0.06 H (0.00-0.03) X10*3/uL Absolute Neuts (auto) 7.1 (2.0-8.3) x10*3/uL Absolute Nucleated RBC 0.000 (0.0-0.012) X10*3/uL Nucleated RBC % (auto) 0.0 (0.0-0.2) /100WBC PT 13.9 H (11.2-13.5) SEC Whole Blood PT 13.1 (11.1-13.5) sec INR 1.1 (0.9-1.1) Whole Blood INR 1.1 (0.9-1.1) Sodium 134 L (135-145) mmol/L Potassium 4.4 (3.3-5.1) mmol/L Chloride 105 (96-108) mmol/L Carbon Dioxide 21 L (22-29) mmol/L Anion Gap 12 (12-20) BUN 28 H (9-16) mg/dL Creatinine 1.17 (0.5-1.4) mg/dL Estim Creat Clear Calc 40.6 Estimated GFR 45 Random Glucose 116 H (60-115) mg/dL Calcium 10.4 H D (8.4-10.2) mg/dL Total Bilirubin 1.1 H (0.0-1.0) mg/dL Direct Bilirubin 0.3 (0.0-0.5) mg/dL AST 35 H (5-31) U/L ALT 6 (0-31) U/L Alkaline Phosphatase 87 (39-117) U/L Troponin I High Sens 4.5 D (<3.5-17.0) ng/L Total Protein 6.6 (6.5-8.0) g/dL Albumin 3.5 (3.5-5.0) g/dL Lipase 6 L (8-78) U/L Independent Interpretation I performed an independent interpretation of an: EKG Interpretation: EKG independently interpreted by myself as NSR 70BPM with normal intervals Radiology Impression Discussion of test interpretation with radiology: I have reviewed the radiologist's reading. Radiologist Impression: EXAMINATION: CT HEAD WITHOUT CONTRAST (STROKE PROTOCOL) CLINICAL INFORMATION: Left-sided weakness. Concerning for acute stroke. COMPARISON: December 14, 2024. TECHNIQUE: Contiguous axial imaging was performed from the skull base to vertex without intravenous administration of contrast. This CT examination was performed using dose optimization techniques as appropriate, variously including the following: *Automated exposure control *Adjustment of mA and/or kV according to patient size (this includes techniques or standardized protocols for targeted exams where dose is matched to indication/reason for exam; i.e. extremities or head) *Use of iterative reconstruction technique DLP: 717 mGy-cm FINDINGS: Bilateral multifocal patchy and confluent hypodensities involving centrum semiovale and palmer radiata both hemispheres. Focal encephalomalacia, right parietal/precuneus. Old lacunar infarcts, right basal ganglia and right frontal palmer radiata. No acute intracranial hemorrhage, mass effect, midline shift, hydrocephalus or herniation. No increased density in the MCA. Arboleda-white matter differentiation is normal. Prominence of the extra-axial CSF spaces cerebral sulci and ventricles. Calcified plaques in the cavernous supracavernous segments both ICAs. Posterior cranial fossa contents demonstrated no gross mass effect or hemorrhage. Normal position of the cerebellar tonsils. Sellar/suprasellar region demonstrated no gross masses. No air-fluid levels in the paranasal sinuses. Tympanic cavities and mastoid cells are aerated. CT/CT angio head neck STROKE IMPRESSION: No acute intracranial hemorrhage. White matter disease likely related to small vessel occlusive disease. Prior vascular insult, right MCA territory. This critical result was discussed with emergency physician Dr. Jeaneth Stevens at 9:45 AM hours on December 25, 2024.. It was ascertained that the content and urgency of the report was understood at the time of direct communication. EXAMINATION: CTA NECK WITH CONTRAST (STROKE) CTA BRAIN WITH CONTRAST (STROKE) CLINICAL INFORMATION: Left-sided weakness. Concerning acute stroke. COMPARISON: December 14, 2024. TECHNIQUE: CTA of the head and neck was performed in the axial plane from the mediastinum to the skull vertex using 70 mL Omnipaque 350 intravenous contrast. Additional reformatted multiplanar images including maximum intensity projection MIP images are generated on the CT workstation. This CT examination was performed using dose optimization techniques as appropriate, variously including the following: *Automated exposure control *Adjustment of mA and/or kV according to patient size (this includes techniques or standardized protocols for targeted exams where dose is matched to indication/reason for exam; i.e. extremities or head) *Use of iterative reconstruction technique DLP: 686 mGy-cm FINDINGS: The degree of stenosis determined by criteria similar to NASCET. Chest CTA: No aneurysm or dissection, thoracic aortic arch included in the exam. Calcified plaque in the inferior aspect aortic arch wall and the origin of the main branches. Neck CTA: There is a 4 x 4 x 8 cm heterogeneous mixed low and high density abnormality centered in the right carotid compartment extending laterally from the carotid bulb and right ICA into the platysma from the hyoid bone level to the thyroid gland level in the craniocaudal dimensions.. There is mass effect upon the adjacent structures, right submandibular gland and the sternocleidomastoid muscle. I do not see IV contrast extravasation. Tiny air bubbles are present. There is irregular noncalcified abnormality along the distal right CCA without IV contrast extravasation. Right CCA: Normal patency. No focal stenosis. Irregular lateral wall with intraluminal filling defects. Right ICA: Irregular shaped noncalcified plaque. Intraluminal abnormalities extending from the carotid bulb to the proximal segment of the right ICA as well at this right external carotid artery. Left CCA: Normal patency. No focal stenosis. No intimal flap. Tortuosity. Retropharyngeal trajectory resulting in mass effect upon the left lateral wall of the esophagus. Left ICA: Mixed plaques in the carotid bulbs and proximal ICAs representing 90% stenosis. Intraluminal noncalcified abnormality in the proximal to mid segment left ICA. Tortuosity. V1/V2 segments: Normal patency. No focal stenosis. No intimal flap. Left vertebral artery is dominant. The origin from the subclavian arteries. Brain CTA: Anterior cerebral circulation: ICAs: Calcified plaques in the cavernous supracavernous segments. Normal patency. No focal stenosis. No intimal flap. MCA's: Normal patency. No focal stenosis. No abrupt cut off. ACAs: Hypoplastic/atretic right A1 segment. No focal stenosis. No abrupt cut off. Anterior, extending artery is patent. Ophthalmic arteries are patent without gross abnormality. Posterior communicating arteries are patent without gross abnormality. Posterior cerebral circulation: V3/V4 segments: Normal patency. No intimal flap. No focal stenosis. Left vertebral artery is dominant. Posterior inferior cerebral arteries are patent without gross abnormality. Basilar artery is patent without focal stenosis or intimal flap. Anterior inferior cerebral arteries are patent. Superior cerebellar arteries are patent without gross abnormality. financial recruiter: Hypoplastic/atretic right P1 segment. Normal patency. No abrupt cut off. IMPRESSION: 8 x 4 x 4 cm acute to subacute hematoma/hemorrhage, right carotid compartment without gross active extravasation. Intraluminal flaps/noncalcified plaques right ICA and distal right CCA. Mixed plaques representing 90% stenosis, left ICA. No main cerebral artery occlusion or embolus. This critical test result is communicated to: Emergency physician Dr. Jeaneth Stevens at 9:45 AM on December 25, 2024 Electronically signed by: Errol Fuller MD 12/25/2024 10:16 AM [facility] EXAMINATION: CT HEAD WITHOUT CONTRAST (STROKE PROTOCOL) CLINICAL INFORMATION: Left-sided weakness. Concerning for acute stroke. COMPARISON: December 14, 2024. TECHNIQUE: Contiguous axial imaging was performed from the skull base to vertex without intravenous administration of contrast. This CT examination was performed using dose optimization techniques as appropriate, variously including the following: *Automated exposure control *Adjustment of mA and/or kV according to patient size (this includes techniques or standardized protocols for targeted exams where dose is matched to indication/reason for exam; i.e. extremities or head) *Use of iterative reconstruction technique DLP: 717 mGy-cm FINDINGS: Bilateral multifocal patchy and confluent hypodensities involving centrum semiovale and palmer radiata both hemispheres. Focal encephalomalacia, right parietal/precuneus. Old lacunar infarcts, right basal ganglia and right frontal palmer radiata. No acute intracranial hemorrhage, mass effect, midline shift, hydrocephalus or herniation. No increased density in the MCA. Arboleda-white matter differentiation is normal. Prominence of the extra-axial CSF spaces cerebral sulci and ventricles. Calcified plaques in the cavernous supracavernous segments both ICAs. Posterior cranial fossa contents demonstrated no gross mass effect or hemorrhage. Normal position of the cerebellar tonsils. Sellar/suprasellar region demonstrated no gross masses. No air-fluid levels in the paranasal sinuses. Tympanic cavities and mastoid cells are aerated. CT/CT head for STROKE IMPRESSION: No acute intracranial hemorrhage. White matter disease likely related to small vessel occlusive disease. Prior vascular insult, right MCA territory. This critical result was discussed with emergency physician Dr. Jeaneth Stevens at 9:45 AM hours on December 25, 2024.. It was ascertained that the content and urgency of the report was understood at the time of direct communication. Critical Care Time Critical Care Time Critical Care Time: Yes Total Critical Care Time: 46 Attestation: Total critical care time: Approximately?46?minutes Due to a high probability of clinically significant, life threatening deterioration, the patient required my highest level of preparedness to intervene emergently and I personally spent this critical care time directly and personally managing the patient. This critical care time included obtaining a history; examining the patient; pulse oximetry; ordering and review of studies; arranging urgent treatment with development of a management plan; evaluation of patient's response to treatment; frequent reassessment; and, discussions with other providers. This critical care time was performed to assess and manage the high probability of imminent, life-threatening deterioration that could result in multi-organ failure. It was exclusive of separately billable procedures and treating other patients? Discharge Plan Discharge Clinical Impression: AMS (altered mental status), Postop carotid endarterectomy surveillance, encounter for, Fall Patient Disposition: Admitted As Inpatient Print Language: Thai
[2024-12-25 09:27] LABS: Prothrombin Time Whole Bld POC 13.1 sec (11.1-13.5); ~PT, ~INR - Anti Coag Clinic 1.1 (0.9-1.1)
[2024-12-25] MEDS: iohexoL 350 MG/ML 100 ML INFUS..BTL IV (09:43)
[2024-12-25 10:05] LABS: MANUAL DIFF FLAG NO
[2024-12-25 10:06] LABS: Hematocrit 37.1 % (37.0-47.0); Hemoglobin 11.2 g/dl (12.0-16.0); Imm Gran Abs Auto 0.06 X10*3/uL (0.00-0.03); Imm Gran Pct Auto 0.6 % (0.0-0.4); Lymphocytes Absolute Auto 1.7 X10*3/uL (1.2-4.9); Mean Corpuscular HGB Conc 30.2 g/dl (31.0-35.0); Mean Corpuscular Hemoglobin 24.9 pg (27.0-33.0); Mean Corpuscular Volume 82.4 fL (80.0-98.0); NRBC Abs Auto 0.000 X10*3/uL (0.0-0.012); NRBC Pct Auto 0.0 /100WBC (0.0-0.2); Platelet Count 644 X10*3/uL (160-400); Red Blood Count 4.50 X10*6/uL (4.20-5.50); White Blood Count 9.7 X10*3/uL (4.8-10.8)
[2024-12-25 10:13] LABS: INTERNATIONAL NORM RATIO 1.1 (0.9-1.1); Prothrombin Time 13.9 SEC (11.2-13.5)
--- NOTE | 2024-12-25 10:13 | MHC.EDTECH ---
per md no stroke POC needed
[2024-12-25 10:36] LABS: Alanine Aminotransferase 6 U/L (0-31); Albumin Level 3.5 g/dL (3.5-5.0); Alkaline Phosphatase 87 U/L (39-117); Anion Gap 12 (12-20); Aspartate Amino Transferase 35 U/L (5-31); Blood Urea Nitrogen 28 mg/dL (9-16); Calcium 10.4 mg/dL (8.4-10.2); Carbon Dioxide 21 mmol/L (22-29); Chloride 105 mmol/L (96-108); Creatinine Clr Calc Pharmacy 40.6; Estimated Glomerular Filt Rate 45; Lipase 6 U/L (8-78); Potassium 4.4 mmol/L (3.3-5.1); Sodium 134 mmol/L (135-145); Total Protein 6.6 g/dL (6.5-8.0)
[2024-12-25 10:42] LABS: Troponin-I High Sensitivity 4.5 ng/L (<3.5-17.0)
--- OUTSIDE RECORDS SUMMARY | 2024-12-25 11:15 | XMS_ITS | Patient Health Record ---
Author Organization [facility] Address [address] [place] [address] Care Team Providers Care Informatics Specialist Name Role Phone MARY, CYNTHIA Primary Care Provider Simone Bennett Jr [phone] Allergies Allergen (clinical drug ingredient) Drug/Non Drug Allergy documented on EMR Reaction Allergy Type Onset Date Status diphenhydramine Benadryl anxiety Drug Allergy A ctive Results Component Value Reference Range Notes Pathology Reviewed date:05/24/2024 09:42:51 AM Interpretation: Performing Lab:[facility], [address] [place] [address] Notes/Report: Reason For Referral No Information Medications [...] W/U Status Risk Notes Problem Rectal bleeding (28951128) Rectal bleeding (K62.5) Active confirmed Problem Gastrointestinal tract problem (230306918) Abn findings-GI tract (R93.3) Active confirmed Problem Gastroesophageal reflux disease (624576849) Gastroesophageal reflux disease, unspecified whether esophagitis present [...] N/A Encounters Encounter Location Date Provider Diagnosis [facility] Outpatient [address] [place] [id number] 05/16/2024 Simone Craig Jr [facility] [address] [place] [phone] 04/23/2024 Simone Craig Jr Weight loss R63.4 ; Colitis K52.9 and Early satiety R68.81 [facility] [address] [place] [phone] 08/30/2024 Simone Craig Jr Gastroesophageal reflux disease, unspecified whether esophagitis present K21.9 and Abn findings-GI tract R93.3 [facility] [address] [place] [phone] 03/30/2024 Simone Craig Jr [facility] [address] [place] [phone] 04/09/2024 Simone Craig Jr [facility] [address] [place] [phone] 05/23/2024 Simone Craig Jr [facility] [address] [place] [phone] 05/23/2024 Simone Craig Jr [facility] [address] [place] [phone] 05/24/2024 Simone Craig Jr [facility] [address] [place] [phone] 06/08/2024 Simone Craig Jr [facility] [address] [place] [phone] 07/19/2024 Simone Craig Jr [facility] [address] [place] [phone] 08/30/2024 Simone Craig Jr Assessments Encounter Date [...] Provider Name:Simonejeremiah stephens , 09/05/2025 01:35:00 PM, [address] [place] [address], [address], [place], [address], Insurance Providers Payer Name Payer Address Payer Phone Subscriber Number Group Number Insured Name Patient Relationship to Insured Coverage Start Date Coverage End Date MEDICARE OF [place] [address] [place] [address] [id number] ILDA WINTERS Self - patient is the insured [employer] ATTN CLAIMS [address] [place] [address] [id number] ILDA WINTERS Self - patient is the [...]
--- OUTSIDE RECORDS SUMMARY | 2024-12-25 11:15 | XMS_ITS | Encounter Summary ---
Author Organization [facility] Address [address] [facility] [address] [place] [address] Phone Care Team Providers Care Desulphurizer Operator Name Role Phone Ross Moran MD Primary Care Provider Wil Banks MD Unavailable Hari Stevens MD, EdM Unavailable [phone] Kellie Croft RN Unavailable Kathryn [email or web address] Lynda Mora PA-C Unavailable Larissa Perez MD Primary Care Provider [phone] Encounter Details Date Type Department Care Team (Late st Contact Info) Description 01/17/2024 Transcribe Orders [facility] Phleb Main 30 [place] [address] Hari Stevens MD, EdM [address] [facility] [address] [address] [email or web address] Status post right knee replacement (Primary Dx); [...] Description 03/29/2025 2:15 PM EST Office Visit [facility] Department of Orthopaedics [address] [place] [address] Wil Banks MD [address] [place] [address] [email or web address] U documented as of this encounter Results * (ABNORMAL) Comprehensive metabolic panel (01/17/2024 3:03 PM EST) SODIUM 133 133 - 146 mmol/L [facility] POTASSIUM 3.0(L) 3.3 - 5.1 mmol/L [facility] CHLORIDE 94(L) 96 - 108 mmol/L [facility] CO2 21 21 - 35 mmol/L [facility] BUN 17 6 - 19 mg/dL [facility] CREATININE 1.10 0.5 - 1.5 mg/dL [facility] GLUCOSE 131(H) 70 - 99 mg/dL [facility] ALBUMIN 3.8(L) 3.9 - 4.8 g/dL [facility] TOTAL PROTEIN 7.5 6.5 - 8.0 g/dL [facility] CALCIUM 10.1 8.4 - 10.3 mg/dL [facility] ALKALINE PHOSPHATASE 78 39 - 117 U/L [facility] TOTAL BILIRUBIN 1.2 0.0 - 1.2 mg/dL [facility] AST 17 0 - 37 U/L [facility] ALT 9 0 - 40 U/L [facility] GLOBULIN 3.7 1 - 4.8 g/dL [facility] EGFR 54(L) >59 mL/min/1.7 3m2 [facility] Comment:Estimated glomerular filtration rate calculated using the CKD-EPI refit equation. ANION GAP 21(H) 10 - 20 mmol/L [facility] Blood 01/17/2024 3:03 PM EST 01/17/2024 3:06 PM EST us Hari Stevens MD, EdM LAB BLOOD BKR ORDERABLES Final Result [address] [address] documented in this encounter Visit Diagnoses Diagnosis Status post right knee replacement- Primary Primary osteoarthritis of right knee Essential thrombocythemia Generalized pain of knee region documented in this encounter Care Teams Desulphurizer Operator Relationship Specialty Start Date End Date Ross Moran MD [address] [place] [address] [place] [address] PCP - General Internal Medicine 05/16/23 07/12/24 Larissa Perez MD [address] [place] [address] [place] [address] PCP - General Internal Medicine 07/13/24 Wil Banks MD [address] [place] [address] [email or web address] Referring Physician Orthopedic Surgery 07/13/23 Hari Stevens MD, EdM [address] [place] [address] [address] [email or web address] Primary Oncologist Hematology 07/13/23 Kellie Croft, RN 22 [place] [address] Arielle@[email or web address] Registered Nurse 07/13/23 Lynda Mora PAKatiC 22 [place] [address] [email or web address] Physician Medical Associate Physician Medical Associate 07/13/23 documented as of this encounter Additional Source Comments The information contained in this document represents components of the legal health record. It is not the complete legal health record.[facility]
--- OUTSIDE RECORDS SUMMARY | 2024-12-25 11:15 | XMS_ITS | Encounter Summary ---
Author Organization [facility] Address [address] [facility] [address] [place] [address] Phone Care Team Providers Care Road Production General Manager Name Role Phone Ross Moran MD Primary Care Provider Wil Banks MD Unavailable Hari Stevens MD, EdM Unavailable [phone] Kellie Croft RN Unavailable Kathryn [email or web address] Lynda Mora PA-C Unavailable Larissa Perez MD Primary Care Provider [phone] Encounter Details Date Type Department Care Team (Late st Contact Info) Description 06/29/2023 Transcribe Orders [facility] Specimen Processing 30 [place] [address] Ross Moran MD [address] [place] [address] [place] [address] Social History Tobacco Use Types Packs/Day Years [...] [facility] Women[facility] Department of Orthopaedics [address] [place] [address] Wil Banks MD [address] [place] [address] [email or web address] U documented as of this encounter Visit Diagnoses Not on filedocumented in this encounter Care Teams Road Production General Manager Relationship Specialty Start Date End Date Ross Moran MD [address] [place] [address] [place] [address] PCP - General Internal Medicine 05/16/23 07/12/24 Larissa Perez MD [address] [place] [address] [place] [address] PCP - General Internal Medicine 07/13/24 Wil Banks MD [address] [place] [address] [email or web address] Referring Physician Orthopedic Surgery 07/13/23 Hari Stevens MD, EdM [address] [place] [address] [email or web address] Primary Oncologist Hematology 07/13/23 Kellie Croft RN 22 [place] [address] [email or web address] Registered Nurse 07/13/23 Lynda Mora PA-C 22 [place] [address] [email or web address] Physician Coat Room Attendant Physician Coat Room Attendant 07/13/23 documented as of this encounter Additional Source Comments The information contained in this document represents components of the legal health record. It is not the complete legal health record.[facility]
--- OUTSIDE RECORDS SUMMARY | 2024-12-25 11:15 | XMS_ITS | Patient Health Record ---
Author Organization [facility] Address [address] [place] [address] Care Team Providers Care Still Operator Helper Name Role Phone Ross Moran MD Primary Care Provider Emerson Calvin Unavailable [phone] Allergies Allergen (clinical drug ingredient) Drug/Non Drug [...] Problem Acquired hammer toe of right foot (5676640203455 105) Other hammer toe(s) (acquired), right foot (M20.41) Active confirmed Problem Acquired hammer toe of left foot (7042137195242 103) Other hammer toe(s) (acquired), left foot (M20.42) Active confirmed Plan Of Treatment Pending Test Test Name Order Date X ray : Foot, left 2V 11/06/2014 X ray : Foot, left 3V 12/27/2016 X ray : Foot, left 3V 07/05/2019 X ray : Foot, left 3V 08/09/2019 X ray : Foot, left 3V 09/19/2019 X ray : Foot, right 3V 12/27/2016 [id number] NAIL, 6 OR MORE 12/27/2016 [id number] Plate 04/29/2011 [id number] 06/10/2011 [id number] 07/01/2011 38202-KBV 08/02/2011 [id number] SKIN/TISSUE 08/02/2011 [id number] SKIN/TISSUE 07/01/2011 69303- Unna Boot 07/05/2019 Insurance Providers Payer Name Payer Address Payer Phone Subscriber Number Group Number Insured Name Patient Relationship to Insured Coverage Start Date Coverage End Date Medicare National Govt Sv[employer] [address] [place] [address] [id number] Dunia Elliott Self - patient is the insured [employer] [address] [place] [address] [id number] Dunia Elliott Self - patient is [...]
--- OUTSIDE RECORDS SUMMARY | 2024-12-25 11:15 | XMS_ITS | Clinical Summary ---
Author Organization [facility] Address [address] [facility] [address] [place] [address] Phone Care Team Providers Care Plaster Block Layer Name Role Phone Wil Banks MD Unavailable Hari Stevens MD, EdM Unavailable [phone] Kellie Croft RN Unavailable Kathryn [email or web address] Lynda Mora PA-C Unavailable Larissa Perez [...] Department Care Team Description 11/29/2024 Orders Only [facility] Department of Orthopaedics [address] [place] [address] Wil Banks MD Primary osteoarthritis of right [...] [facility] Department of Orthopaedics [address] [place] [address] Wil Banks MD [address] [place] [address] [email or web address]. U Health Maintenance Due Date Last Done [...] this topic Medical Devices Implanted Type Area Quality Eng Device Identifier Shelf Expiration Date Model / Serial / Lot Cement Bone 40g Simplex P Demineralized Matrix Radiopaque Void Filler Full Dose Bx/10ea - [id number] Implanted:Qty: 2 on 12/08/2023 by Wil Banks MD at [facility] STANDARD Right: Knee [employer] 12/14/2025 [id number] / / [id number] Knee Implant Component Size 6 Femoral Persona [place] [employer]ement Cruciate Retaining Standard Right - [id number] Implanted:Qty: 1 on 12/08/2023 by Wil Banks MD at [facility] Right: Knee [employer] 08/21/2033 [id number] / / [id number] Knee Implant 5deg Component Tibial Persona Titanium Stemmed Cemented Rt Size D - [id number] Implanted:Qty: 1 on 12/08/2023 by Wil Banks MD at [facility] Right: Knee [employer] 03/30/2033 [id number] / / [id number] Knee Insert 10mm Component Surface Persona Polyethylene Cruciate Retaining Fixed Conventional Right [id number] - [id number] Implanted:Qty: 1 on 12/08/2023 by Wil Banks MD at [facility] Right: Knee [employer] 06/06/2028 [id number] / / [id number] Procedures Procedure Name Priority Date/Time Associated Diagnosis Comments COMPREHENSIVE METABOLIC PANEL (CMP) Routine 02/20/2024 4:10 PM EST Polycythemia from Last 3 Months or Most Recently Relevant to Health Maintenance Results * (ABNORMAL) Comprehensive metabolic panel (02/20/2024 4:10 PM EST) SODIUM 133 133 - 146 mmol/L [facility] POTASSIUM 3.2(L) 3.3 - 5.1 mmol/L [facility] CHLORIDE 96 96 - 108 mmol/L [facility] CO2 21 21 - 35 mmol/L [facility] BUN 14 6 - 19 mg/dL [facility] CREATININE 0.90 0.5 - 1.5 mg/dL [facility] GLUCOSE 112(H) 70 - 99 mg/dL [facility] ALBUMIN 3.6(L) 3.9 - 4.8 g/dL [facility] TOTAL PROTEIN 6.9 6.5 - 8.0 g/dL [facility] CALCIUM 10.4(H) 8.4 - 10.3 mg/dL [facility] ALKALINE PHOSPHATASE 62 39 - 117 U/L [facility] TOTAL BILIRUBIN 1.2 0.0 - 1.2 mg/dL [facility] AST 20 0 - 37 U/L [facility] ALT 9 0 - 40 U/L [facility] GLOBULIN 3.3 1 - 4.8 g/dL [facility] EGFR 68 >59 mL/min/1.7 3m2 [facility] Comment:Estimated glomerular filtration rate calculated using the CKD-EPI refit equation. ANION GAP 19 10 - 20 mmol/L [facility] Blood 02/20/2024 4:10 PM EST 02/20/2024 4:13 PM EST Hari Stevens MD, EdM LAB BLOOD BKR ORDERABLES Final Result [facility] [address] [place] [address] from Last 3 Months or Most Recently Relevant to Health Maintenance Insurance [address] [place] [address] [employer] MEDEX SUPPLEMENT MEDICARE PART A & B [employer] MEDEX SUPPLEMENT MEDICARE PART A & B [address] [place] [address] [employer] MEDEX SUPPLEMENT MEDICARE PART A & [place] [address] [place] [address] [employer] MEDEX SUPPLEMENT MEDICARE PART A & B [address] [place] [id number] [facility] MEDEX SUPPLEMENT MEDICARE PART A & B [facility] MEDEX SUPPLEMENT MEDICARE PART A & B [address] [place] [address] [address] [place] [address] [address] [place] [address] Advance Directives For more information, please contact: [phone] (9AM - 5PM [facility], Tuesday-Tuesday) * Full Code (Latest Code Status on File) Date Activated Date Inactivated Comments 12/08/2023 5:03 PM Question Answer Comments Code Status Confirmed With: Patient Care Teams Plaster Block Layer Relationship Specialty Start Date End Date Larissa Perez MD [address] [place] [address] [place] [address] PCP - General Internal Medicine 07/13/24 Wil Banks MD [address] [place] [address] [email or web address] Referring Physician Orthopedic Surgery 07/13/23 Hari Stevens MD, EdM [address] [place] [address] [email or web address]@[email or web address] Primary Oncologist Hematology 07/13/23 Kellie Croft, RN 22 [place] [address] Arielle@[email or web address] Registered Nurse 07/13/23 Lynda Mora PA-C [address] [place] [address] [email or web address] Physician Hasher Operator Physician Hasher Operator 07/13/23 Additional Source Comments The information contained in this document represents components of the legal health record. It is not the complete legal health record.[facility]
--- OUTSIDE RECORDS SUMMARY | 2024-12-25 11:15 | XMS_ITS | Encounter Summary ---
Author Organization [facility] Address [address] [facility] [address] [place] [address] Phone Care Team Providers Care Building Construction Inspector Name Role Phone Ross Moran MD Primary Care Provider Wil Banks MD Unavailable Hari Stevens MD, EdM Unavailable [phone] Kellie Croft RN Unavailable Kathryn [email or web address] Lynda Mora PA-C Unavailable Larissa Perez MD Primary Care Provider [phone] Encounter Details Date Type Department Care Team (Late st Contact Info) Description 12/08/2023 Procedure Pass BWF Periop 6th floor [address] [place] [address] Social History Tobacco Use Types Packs/Day Years [...] [facility] Department of Orthopaedics [address] [place] [address] Wil Banks MD 75 [place] [address] [email or web address] U documented as of this encounter Visit Diagnoses Not on filedocumented in this encounter Care Teams Building Construction Inspector Relationship Specialty Start Date End Date Ross Moran MD [address] [place] [address] [place] [address] PCP - General Internal Medicine 05/16/23 07/12/24 Larissa Perez MD [address] [place] [address] [place] [address] PCP - General Internal Medicine 07/13/24 Wil Banks MD [address] [place] [address] [email or web address] Referring Physician Orthopedic Surgery 07/13/23 Hari Stevens MD, EdM [address] [place] [address] [address] PRASHANT@[facility] Primary Oncologist Hematology 07/13/23 Kellie Croft, RN [address] [place] [address] Arielle@[facility] Registered Nurse 07/13/23 Lynda Mora PA-C [address] [place] [address] [email or web address] Physician Director Of Loss Prevention Physician Director Of Loss Prevention 07/13/23 documented as of this encounter Additional Source Comments The information contained in this document represents components of the legal health record. It is not the complete legal health record.[facility]
--- OUTSIDE RECORDS SUMMARY | 2024-12-25 11:15 | XMS_ITS | Encounter Summary ---
Author Organization [facility] Address [address] [facility] [address] [place] [address] Phone Care Team Providers Care Assembly Machine Operator Name Role Phone Rsos Moran MD Primary Care Provider Wil Banks MD Unavailable Hari Stevens MD, EdM Unavailable [phone] Kellie Croft RN Unavailable Kathryn [email or web address] Lynda Mora PA-C Unavailable Larissa Perez MD Primary Care Provider [phone] Encounter Details Date Type Department Care Team (Late st Contact Info) Description 07/19/2023 Procedure Pass BWF Periop 6th floor [address] [place] [address] Social History Tobacco Use Types Packs/Day Years [...] Description 03/29/2025 2:15 PM EST Office Visit [facility] Department of Orthopaedics [address] [place] [address] Wil Banks MD [address] [place] [address] [email or web address] U documented as of this encounter Visit Diagnoses Not on filedocumented in this encounter Care Teams Assembly Machine Operator Relationship Specialty Start Date End Date Ross Moran MD [address] [place] [address] [place] [address] PCP - General Internal Medicine 05/16/23 07/12/24 Larissa Perez MD [address] [place] [address] [place] [address] PCP - General Internal Medicine 07/13/24 Wil Banks MD [address] [place] [address] YOHANA@[facility] Referring Physician Orthopedic Surgery 07/13/23 Hari Stevens MD, EdM [address] [place] [address] PRASHANT@[facility] Primary Oncologist Hematology 07/13/23 Kellie Croft RN 22 [place] [address] Arielle@[email or web address] Registered Nurse 07/13/23 Lynda Mora PA-C [address] [place] [address] Angy@[email or web address] Physician Senior Controls Analyst Physician Senior Controls Analyst 07/13/23 documented as of this encounter Additional Source Comments The information contained in this document represents components of the legal health record. It is not the complete legal health record.[facility]
--- OUTSIDE RECORDS SUMMARY | 2024-12-25 11:16 | XMS_ITS | Encounter Summary ---
Author Organization [facility] Address [address] [facility] [address] [place] [address] Phone Care Team Providers Care Mine Motor Operator Name Role Phone Ross Moran MD Primary Care Provider Wil Banks MD Unavailable Hari Stevens MD, EdM Unavailable [phone] Kellie Croft RN Unavailable Kathryn [email or web address] Lynda Mora PA-C Unavailable [phone] Larissa Perez MD Primary Care Provider [phone] Reason for Visit * Reason Onset Date Comments Dr. Stevens 01/16/2024 Encounter Details Date Type Department Care Team ([facility] st Contact Info) Description 01/16/2024 Telephone [facility] [place] [facility] [address] [facility] 2nd [place] [address] Cherelle Aquino [address] [place] [address] [email or web address] Dr. Stevens Social History Tobacco [...] [facility] Department of Orthopaedics [address] [place] [address] Wil Banks MD [address] [place] [address] [email or web address].ED U documented as of this encounter Visit Diagnoses Not on filedocumented in this encounter Care Teams Mine Motor Operator Relationship Specialty Start Date End Date Ross Moran MD [address] [place] [address] [place] [address] PCP - General Internal Medicine 05/16/23 07/12/24 Larissa Perez MD [address] [place] [address] [place] [address] PCP - General Internal Medicine 07/13/24 Wil Banks MD [address] [place] [address] YOHANA@[email or web address] Referring Physician Orthopedic Surgery 07/13/23 Hari Stevens MD, EdM [address] [place] [address] PRASHANT@[email or web address] Primary Oncologist Hematology 07/13/23 Kellie Croft, RN [address] [place] [address] Arielle@[email or web address] Registered Nurse 07/13/23 Lynda Mora PA-C [address] [place] [address] [email or web address] Physician Pilot Plant Technician Physician Pilot Plant Technician 07/13/23 documented as of this encounter Additional Source Comments The information contained in this document represents components of the legal health record. It is not the complete legal health record.[facility]
--- NOTE | 2024-12-25 11:25 | PHA.MEDREC ---
Addendum entered by Melissa Forman RPh 12/25/24 12:14: MED REC REVIEWED BY [facility] Xarelto was confirmed with last dose taken on 12/19/24. Dr. Stevens was notified that the resume date for Xarelto is 12/28/2024. Original Note: Pharmacy Consult ? Medication Reconciliation Pharmacy has completed the medication reconciliation. Patient was just discharged yesterday. Patient states no change in medications since discharge. Patient last had her medications yesterday. Utilized discharge packet from 12/24/24 to confirm med list. Per discharge packet patent is to continue Xarelto 12/28/24 did not confirm on med list.
--- NOTE | 2024-12-25 12:43 | MHC.STROKE ---
0930 Notified of patient's arrival and recent admission for TIA/CEA at 0920 Met with patient and family in room 6 Pt reports that she was discharged yesterday. States that she still spatial confusion . Reports that she is unsure of left vs right and up vs down Last evening she went to get up to change her clothes and she fell, striking the back of her head. She was found by a friend who came back to check on her and was helped to bed. This morning, her friend came back to check on her and was assisting her to the bathroom. When the patient stood to pull up her underwear, according to the friend she went completely unresponsive. EMS was called. Patient was recently admitted for a TIA and had a right CEA during her admission that was complicated by postop bleeding. Stroke/TIA education was again reviewed with patient and family. Medical history/medications/social hx/diet/activity was reviewed. All questions answered. Will continue to assist as needed.
--- NOTE | 2024-12-25 14:14 | HO.NURTONUR ---
Addendum entered by Earnestine Thompson RN 12/25/24 15:35: Pt pending MRI scan results. Original Note: 74 y/o F, A/ox3, Full Code Came from home from home for a fall per family member- pt stood up from bathroom and went unresponsive. +HS, -LOC, -Thinners. Pt was d/c from [facility] yesterday for a TIA and had a CEA. Upon arrival to ED- alert/oriented, states she has difficulty finding words and endorsing spatial confusion , +Left upper extremity drift, left sided weakness, mixing up her lefts vs her rights and up/down. Slow to respond to questions. She has a hematoma to the R carotid where her incision site is. Incision site is good, dressing changed d/t soiled with clotted blood, new dressing applied. No POC done upon arrival per MD Stevens. Labs: Hgb 11.2 (around baseline), Reports: EKG- normal sinus with PACs, Head CT- showed the hematoma to R carotid, L ICA 90% stenosis, negative for MCA occlusion. 20g IV Right AC- no meds given in the ED Independent/ambulatory at baseline- has not ambulated while being in the ED.
--- NOTE | 2024-12-25 15:20 | PC.NURSE ---
Pt off unit for MRI
--- NOTE | 2024-12-25 16:20 | PM.IMHP ---
History of Present Illness Date of Service: 12/25/24 Chief Complaint: encephalopathy 74-year-old female with past medical history significant for bilateral carotid artery stenosis, CVA, myeloproliferative neoplasm, polycythemia vera, AFib, HTN who was recently discharged on 12/24 after right carotid endarterectomy on 12/20. Patient's course complicated by postoperative bleeding requiring aspirin and Xarelto to be placed on hold. On discharge patient was alert and oriented x3, however after she arrived home with encephalopathy, stating that she was not feeling well, however while in the bathroom became unresponsive and was brought to the ED. Labs with no leukocytosis, hemoglobin of 11.2, sodium 134, creatinine 1.[address] done that showed white vascular insult territory, with neck CTA showing 4 x 4 x 8 cm heterogeneous mixed low and high density right carotid compartment abnormality extending laterally with mass effect upon adjacent structures, with no major cerebral artery occlusion or embolus. Patient admitted for further workup for patient's encephalopathy. Review of Systems Review of Systems: 14 point review of systems obtained, negative except as stated above [facility] Medical History Polycythemia vera Postoperative nausea Osteopenia Hx of Lyme disease GERD (gastroesophageal reflux disease) Paroxysmal atrial fibrillation HTN (hypertension) Persistent atrial fibrillation Family History Father Cancer Stroke Mother Diabetes Surgical History History of total right knee replacement History of esophagogastroduodenoscopy (EGD) Hx of section Hx of hysterectomy Hx of colonoscopy (~08/13/21) Hx of appendectomy Social History Household Members: None Housing: House Are you a primary health care analyst to a significant other at home: Yes ( with Alzheimer's and Parkinson's) Do you presently have visiting nurse or other home services: No Comment: medicated Patient Tobacco Use Status: Never used Tobacco Smoked in Last 30 Days: No e-Cigarette/Vaping Use: Never Used Second Hand Smoke Exposure: No Use of substances other than those prescribed or required for medical reasons: No Advance Directives: Yes Advance Directives on File: Yes Advance Directives Date on File: 03/11/21 Do you have a plan to hurt others: No Plan Nutrition Risks: No Nutritional Risk service: No Current occupational status: retired Current occupational exposures/hazards: No Cognitive needs: Yes (walker) Hearing needs: No Vision needs: Yes (Rx glasses) Meds Allergies Allergy/AdvReac Type Severity Reaction Status Date / Time diphenhydramine AdvReac Anxiety Verified 12/25/24 09:26 Active Medications: Current Medications Acetaminophen (Acetaminophen 325 Mg Tablet) 650 mg PO Q6H PRN PRN Reason: Pain, Mild 1-3,fever,headache Amlodipine Besylate (Amlodipine Besylate 10 Mg Tablet) 10 mg PO DAILY [facility]; Protocol Atorvastatin Calcium (Atorvastatin Calcium 80 Mg Tablet) 80 mg PO BEDTIME PAYAL Calcium Carbonate (Calcium Carbonate 750 Mg Tab.Chew) 750 mg PO Q4H PRN PRN Reason: Heartburn Folic Acid (Folic Acid 1 Mg Tablet) 1 mg PO DAILY [facility] Lisinopril (Lisinopril 40 Mg Tablet) 40 mg PO DAILY [facility]; Protocol Magnesium Hydroxide (Milk Of Magnesia 30 Ml Oral.Susp) 30 ml PO DAILY PRN PRN Reason: Constipation Melatonin (Melatonin 3 Mg Tablet) 6 mg PO BEDTIME PRN PRN Reason: Insomnia Metoprolol Succinate (Metoprolol Succinate Er 25 Mg Tab.Er.24h) 25 mg PO DAILY [facility]; Protocol Non-Formulary Medication (Tobramycin-Dexamethasone) 1 drop EYE-LEFT QID [facility] Non-Formulary Medication (Linaclotide [Linzess]) 145 mcg PO DAILY PRN PRN Reason: Constipation Omeprazole (Omeprazole 40 Mg Capsule.) 40 mg PO DAILY [facility] Sodium Chloride (0.9 % Sodium Chloride Flush 3 Ml Syringe) 3 ml IVFLUSH QSHIFT [facility] Home Medications ?Medication ?Instructions ?Recorded ?Confirmed ?Last Taken ?Type lisinopril 40 mg tablet 40 mg PO DAILY 03/10/21 12/25/24 12/24/24 History acetaminophen 325 mg tablet 975 mg PO Q8H PRN Pain 05/09/24 12/25/24 12/24/24 History amlodipine 10 mg tablet 10 mg PO DAILY 10/02/24 12/25/24 12/24/24 History rivaroxaban 20 mg tablet (Xarelto) 20 mg PO DAILY@1700 12/14/24 12/25/24 12/19/24 History Held on 12/24/24. Instructions: Resume on 12/28/24. linaclotide 145 mcg capsule 145 mcg PO DAILY PRN Constipation 12/15/24 12/25/24 12/24/24 History (Linzess) tobramycin 0.3 %-dexamethasone 0.1 1 drp ophthalmic-Left QID 12/15/24 12/25/24 12/24/24 History % eye drops,suspension Physical Exam Vital Signs and Narrative: Vital Signs: Last Vital Signs Temp 98.2 F 12/25/24 09:21 Pulse 80 12/25/24 14:00 Resp 17 12/25/24 14:00 BP 174/78 H 12/25/24 14:00 Pulse Ox 98 12/25/24 14:00 O2 Del Method Room Air 12/25/24 14:00 BMI result Body Mass Index 23.9 General: AxOx2, confused Head: AT/NC ENT: Moist mucous membranes Neck: supple, underlying hematome in right side w/ dressing in place w/ dry blood CVS; RRR, S1 S2 normal Lungs: Clear bilateral breath sounds, no wheezes or crackles Abd: Soft non tender, non distended Ext: No edema and no calf tenderness MSK: moving all 4 limbs Skin: No cyanosis or edema Psych: Cooperative with exam Neurology: no focal deficit Results Labs 12/25/24 09:58 12/25/24 09:58 Labs: Laboratory Results - last 24 hr 12/25/24 12/25/24 09:24 09:58 MCV 82.4 MCH 24.9 L MCHC 30.2 L RDW 16.0 Plt Count 644 H MPV 8.4 L Immature Gran % (Auto) 0.6 H Neut % (Auto) 73.7 H Lymph % (Auto) 17.2 L Ramsey % (Auto) 7.2 Eos % (Auto) 0.8 Baso % (Auto) 0.5 Lymph # (Auto) 1.7 Ramsey # (Auto) 0.7 Eos # (Auto) 0.1 Baso # (Auto) 0.1 Abs Immat Gran (auto) 0.06 H Absolute Neuts (auto) 7.1 Absolute Nucleated RBC 0.000 Nucleated RBC % (auto) 0.0 PT 13.9 H Whole Blood PT 13.1 INR 1.1 Whole Blood INR 1.1 Anion Gap 12 Estim Creat Clear Calc 40.6 Estimated GFR 45 Random Glucose 116 H Calcium 10.4 H D Total Bilirubin 1.1 H Direct Bilirubin 0.3 AST 35 H ALT 6 Alkaline Phosphatase 87 Troponin I High Sens 4.5 D Total Protein 6.6 Albumin 3.5 Lipase 6 L Imaging Radiologist's Impressions: Impressions Head CT 12/25/24 09:31 IMPRESSION: No acute intracranial hemorrhage. White matter disease likely related to small vessel occlusive disease. Prior vascular insult, right MCA territory. This critical result was discussed with emergency physician Dr. Jeaneth Stevens at 9:45 AM hours on December 25, 2024.. It was ascertained that the content and urgency of the report was understood at the time of direct communication. EXAMINATION: CTA NECK WITH CONTRAST (STROKE) CTA BRAIN WITH CONTRAST (STROKE) CLINICAL INFORMATION: Left-sided weakness. Concerning acute stroke. COMPARISON: December 14, 2024. TECHNIQUE: CTA of the head and neck was performed in the axial plane from the mediastinum to the skull vertex using 70 mL Omnipaque 350 intravenous contrast. Additional reformatted multiplanar images including maximum intensity projection MIP images are generated on the CT workstation. This CT examination was performed using dose optimization techniques as appropriate, variously including the following: *Automated exposure control *Adjustment of mA and/or kV according to patient size (this includes techniques or standardized protocols for targeted exams where dose is matched to indication/reason for exam; i.e. extremities or head) *Use of iterative reconstruction technique DLP: 686 mGy-cm FINDINGS: The degree of stenosis determined by criteria similar to NASCET. Chest CTA: No aneurysm or dissection, thoracic aortic arch included in the exam. Calcified plaque in the inferior aspect aortic arch wall and the origin of the main branches. Neck CTA: There is a 4 x 4 x 8 cm heterogeneous mixed low and high density abnormality centered in the right carotid compartment extending laterally from the carotid bulb and right ICA into the platysma from the hyoid bone level to the thyroid gland level in the craniocaudal dimensions.. There is mass effect upon the adjacent structures, right submandibular gland and the sternocleidomastoid muscle. I do not see IV contrast extravasation. Tiny air bubbles are present. There is irregular noncalcified abnormality along the distal right CCA without IV contrast extravasation. Right CCA: Normal patency. No focal stenosis. Irregular lateral wall with intraluminal filling defects. Right ICA: Irregular shaped noncalcified plaque. Intraluminal abnormalities extending from the carotid bulb to the proximal segment of the right ICA as well at this right external carotid artery. Left CCA: Normal patency. No focal stenosis. No intimal flap. Tortuosity. Retropharyngeal trajectory resulting in mass effect upon the left lateral wall of the esophagus. Left ICA: Mixed plaques in the carotid bulbs and proximal ICAs representing 90% stenosis. Intraluminal noncalcified abnormality in the proximal to mid segment left ICA. Tortuosity. V1/V2 segments: Normal patency. No focal stenosis. No intimal flap. Left vertebral artery is dominant. The origin from the subclavian arteries. Brain CTA: Anterior cerebral circulation: ICAs: Calcified plaques in the cavernous supracavernous segments. Normal patency. No focal stenosis. No intimal flap. MCA's: Normal patency. No focal stenosis. No abrupt cut off. ACAs: Hypoplastic/atretic right A1 segment. No focal stenosis. No abrupt cut off. Anterior, extending artery is patent. Ophthalmic arteries are patent without gross abnormality. Posterior communicating arteries are patent without gross abnormality. Posterior cerebral circulation: V3/V4 segments: Normal patency. No intimal flap. No focal stenosis. Left vertebral artery is dominant. Posterior inferior cerebral arteries are patent without gross abnormality. Basilar artery is patent without focal stenosis or intimal flap. Anterior inferior cerebral arteries are patent. Superior cerebellar arteries are patent without gross abnormality. property master: Hypoplastic/atretic right P1 segment. Normal patency. No abrupt cut off. IMPRESSION: 8 x 4 x 4 cm acute to subacute hematoma/hemorrhage, right carotid compartment without gross active extravasation. Intraluminal flaps/noncalcified plaques right ICA and distal right CCA. Mixed plaques representing 90% stenosis, left ICA. No main cerebral artery occlusion or embolus. This critical test result is communicated to: Emergency physician Dr. Jeaneth Stevens at 9:45 AM on December 25, 2024 Electronically signed by: Errol Fuller MD 12/25/2024 10:16 [place] [facility] [place] 12/25/24 09:37 IMPRESSION: No acute intracranial hemorrhage. White matter disease likely related to small vessel occlusive disease. Prior vascular insult, right MCA territory. This critical result was discussed with emergency physician Dr. Jeaneth Stevens at 9:45 AM hours on December 25, 2024.. It was ascertained that the content and urgency of the report was understood at the time of direct communication. EXAMINATION: CTA NECK WITH CONTRAST (STROKE) CTA BRAIN WITH CONTRAST (STROKE) CLINICAL INFORMATION: Left-sided weakness. Concerning acute stroke. COMPARISON: December 14, 2024. TECHNIQUE: CTA of the head and neck was performed in the axial plane from the mediastinum to the skull vertex using 70 mL Omnipaque 350 intravenous contrast. Additional reformatted multiplanar images including maximum intensity projection MIP images are generated on the CT workstation. This CT examination was performed using dose optimization techniques as appropriate, variously including the following: *Automated exposure control *Adjustment of mA and/or kV according to patient size (this includes techniques or standardized protocols for targeted exams where dose is matched to indication/reason for exam; i.e. extremities or head) *Use of iterative reconstruction technique DLP: 686 mGy-cm FINDINGS: The degree of stenosis determined by criteria similar to NASCET. Chest CTA: No aneurysm or dissection, thoracic aortic arch included in the exam. Calcified plaque in the inferior aspect aortic arch wall and the origin of the main branches. Neck CTA: There is a 4 x 4 x 8 cm heterogeneous mixed low and high density abnormality centered in the right carotid compartment extending laterally from the carotid bulb and right ICA into the platysma from the hyoid bone level to the thyroid gland level in the craniocaudal dimensions.. There is mass effect upon the adjacent structures, right submandibular gland and the sternocleidomastoid muscle. I do not see IV contrast extravasation. Tiny air bubbles are present. There is irregular noncalcified abnormality along the distal right CCA without IV contrast extravasation. Right CCA: Normal patency. No focal stenosis. Irregular lateral wall with intraluminal filling defects. Right ICA: Irregular shaped noncalcified plaque. Intraluminal abnormalities extending from the carotid bulb to the proximal segment of the right ICA as well at this right external carotid artery. Left CCA: Normal patency. No focal stenosis. No intimal flap. Tortuosity. Retropharyngeal trajectory resulting in mass effect upon the left lateral wall of the esophagus. Left ICA: Mixed plaques in the carotid bulbs and proximal ICAs representing 90% stenosis. Intraluminal noncalcified abnormality in the proximal to mid segment left ICA. Tortuosity. V1/V2 segments: Normal patency. No focal stenosis. No intimal flap. Left vertebral artery is dominant. The origin from the subclavian arteries. Brain CTA: Anterior cerebral circulation: ICAs: Calcified plaques in the cavernous supracavernous segments. Normal patency. No focal stenosis. No intimal flap. MCA's: Normal patency. No focal stenosis. No abrupt cut off. ACAs: Hypoplastic/atretic right A1 segment. No focal stenosis. No abrupt cut off. Anterior, extending artery is patent. Ophthalmic arteries are patent without gross abnormality. Posterior communicating arteries are patent without gross abnormality. Posterior cerebral circulation: V3/V4 segments: Normal patency. No intimal flap. No focal stenosis. Left vertebral artery is dominant. Posterior inferior cerebral arteries are patent without gross abnormality. Basilar artery is patent without focal stenosis or intimal flap. Anterior inferior cerebral arteries are patent. Superior cerebellar arteries are patent without gross abnormality. property master: Hypoplastic/atretic right P1 segment. Normal patency. No abrupt cut off. IMPRESSION: 8 x 4 x 4 cm acute to subacute hematoma/hemorrhage, right carotid compartment without gross active extravasation. Intraluminal flaps/noncalcified plaques right ICA and distal right CCA. Mixed plaques representing 90% stenosis, left ICA. No main cerebral artery occlusion or embolus. This critical test result is communicated to: Emergency physician Dr. Jeaneth Stevens at 9:45 AM on December 25, 2024 Electronically signed by: Errol Fuller MD 12/25/2024 10:16 [place] [facility] [place] Plan (1) Encephalopathy: Status: Acute (2) Paroxysmal atrial fibrillation: Status: Acute (3) Carotid disease, bilateral: Qualifiers: Carotid artery disease type: stenosis Qualified Code(s): I65.23 - Occlusion and stenosis of bilateral carotid arteries Status: Acute (4) Polycythemia vera: Status: Acute Plan Assessment: 74-year-old female who was recently admitted to hospital for TIA secondary to severe bilateral internal carotid artery stenosis undergoing right carotid endarterectomy on 12/20. Patient has significant bleeding, requiring Xarelto and aspirin to be placed on hold. Patient was discharged home on 12/24, with indications on resuming aspirin and Xarelto on 12/28. However upon arrival to home patient became encephalopathic and became unresponsive. On admission to the ED patient encephalopathic, admitted for further workup. Encephalopathy, to rule out CVA or seizure Bilateral carotid stenosis status post right endarterectomy on 12/20 Chronic small-vessel ischemic changes with history of nonacute right parietal and internal capsule lacunar infarct -imaging reviewed, we will order MRI -neurology and vascular surgery consulted -we will hold off on any anticoagulation at this time, continue with high-intensity statin -telemetry ordered Polycythemia vera, chronic -continue hydroxyurea Paroxysmal atrial fibrillation -continue telemetry -metoprolol succinate 25 mg q.h.s., patients with prior plans of restarting rivaroxaban on 12/28 due to right carotid hematoma Hypertension, chronic -continue lisinopril, amlodipine and metoprolol, monitor blood pressures and adjust according FEN: NI, replete as needed, NPO until seen by dietary Gi PPx: PPI DVT PPx: SCDs Code Status: Full code Disposition: All questions and concerns with the patient were answered to satisfaction. All pertinent clinical documents, images and labs were reviewed. DISCLAIMER: This document was created using voice recognition software. Any mistakes in the prescription are unintentional. An attempt was made to focus for accuracy, but to expedite availability, some errors may persist. Please contact with any need for correction or further clarification Total time managing care of this patient today: 75 minutes. Quality Stroke Does the patient have a stroke diagnosis?: No VTE Prior VTE?: No VTE Risk Level:: Medical - low VTE Device Contraindication: N/A - Device Ordered VTE Drug Contraindication: Treatment Not Indicated
--- NOTE | 2024-12-25 16:45 | PC.NURSE ---
Pt arrived back to ED 6 from MRI. A/ox3, pt still endorsing difficulty finding words, slow to respond. Follows commands/answering questions appropriately. Respirations even and unlabored, no increased wob/sob noted, maintaining O2 sat >92% on RA, denies SOB/[employer]. Swallow eval done at bedside- pt able to swallow w/o difficulty. Vitals updated in worklist. Pt endorsing anxiety/restlessness- MD notified. Call luna within reach, all needs met at this time.
[2024-12-25] MEDS: 0.9 % Sodium Chloride Flush 3 ML SYRINGE IVFLUSH (17:10)
[2024-12-26] VITALS (7 sets, daily range): BP systolic 126–154; BP diastolic 62–109; PULSE 66–88; RESP 16–18; TEMP 36.2–37.4; O2SAT 97–100
--- NOTE | 2024-12-26 08:32 | MHC.CM.PN ---
Addendum entered by Maddie Cm 12/26/24 09:17: OT is recommending Acute Rehab; CM will follow. Original Note: CM met with Patient at bedside and addressed FISCHER with her, providing Patient with the original and a copy has been placed on the chart. 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 Patient had been referred to [facility] but services never started, r/t Patient returning back to the hospital. Patient will benefit from a PT Eval to assist with disposition; her goal is to go to [facility]. CM has initiated and will follow for dc planning. PCP is Dr.Sarah Salazar and HCP is Son/Jacques. Patient's Girlfriend will transport to home if a home dc is recommended.
[2024-12-26 08:55] LABS: Hematocrit 39.0 % (37.0-47.0); Hemoglobin 11.9 g/dl (12.0-16.0); Mean Corpuscular HGB Conc 30.5 g/dl (31.0-35.0); Mean Corpuscular Hemoglobin 24.9 pg (27.0-33.0); Mean Corpuscular Volume 81.6 fL (80.0-98.0); NRBC Abs Auto 0.000 X10*3/uL (0.0-0.012); NRBC Pct Auto 0.0 /100WBC (0.0-0.2); Platelet Count 675 X10*3/uL (160-400); Red Blood Count 4.78 X10*6/uL (4.20-5.50); White Blood Count 11.5 X10*3/uL (4.8-10.8)
[2024-12-26 09:05] LABS: Anion Gap 14 (12-20); Blood Urea Nitrogen 26 mg/dL (9-16); Calcium 10.8 mg/dL (8.4-10.2); Carbon Dioxide 21 mmol/L (22-29); Chloride 106 mmol/L (96-108); Creatinine Clr Calc Pharmacy 44.9; Estimated Glomerular Filt Rate 51; Potassium 4.0 mmol/L (3.3-5.1); Sodium 137 mmol/L (135-145)
[2024-12-26] MEDS: Metoprolol Succinate ER 25 MG TAB.ER.24H PO (11:57)
[2024-12-26] MEDS: 0.9 % Sodium Chloride Flush 3 ML SYRINGE IVFLUSH ×2 (11:58→20:20)
--- NOTE | 2024-12-26 11:59 | PM.NEUROCN ---
History of Present Illness Data of Consult Service Date: 12/26/24 Primary Care Provider: Larissa Salazar MD HPI Reason for consult: Confusion post right carotid endarterectomy on 12/20/2024 This is a 74-year-old right-handed woman who presented with a TIA on with transient left-sided weakness with a fall. She was seen in consultation by Dr. 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 She underwent a right carotid patch endarterectomy by Dr. Swartz on 12/20/2024. She was finally discharged home on 12/24/2024 because of continuing bleeding at the operative site. At the time of discharge on Tuesday she started to have some spatial orientation problems and when she got home she tried to get out of the car from the wrong side that is the dedicated local truck driver side instead of the passenger side where she was sitting suggesting that she had a right visual field deficit. She was brought back to the hospital yesterday because of continuing confusion and spatial disorientation. She seems somewhat better today but still not completely back to her baseline and has difficulty following some commands and has some right left disorientation and difficulty with numbers. She also has a partial right inferior field defect. She had a CTA which shows now a high-grade stenosis of the left internal carotid whereas the right carotid is patent having undergone endarterectomy. Her MRI shows multiple cortical infarcts in the left hemisphere in the parietal occipital cortex and multiple small infarcts in the right parietal cortex as well. These could be embolic or due to low flow phenomena on both sides. [facility] Past Medical History Medical History Polycythemia vera Postoperative nausea Osteopenia Hx of Lyme disease GERD (gastroesophageal reflux disease) Paroxysmal atrial fibrillation HTN (hypertension) Persistent atrial fibrillation Family History Family History Father Cancer Stroke Mother Diabetes Surgical History Surgical History History of total right knee replacement History of esophagogastroduodenoscopy (EGD) Hx of section Hx of hysterectomy Hx of colonoscopy (~08/13/21) Hx of appendectomy Social History Social History Household Members: None Housing: House Are you a primary acute care assistant to a significant other at home: Yes ( with Alzheimer's and Parkinson's) Do you presently have visiting nurse or other home services: Yes Comment: medicated Patient Tobacco Use Status: Never used Tobacco e-Cigarette/Vaping Use: Never Used Second Hand Smoke Exposure: No Advance Directives Date on File: 03/11/21 service: No Current occupational status: retired Current occupational exposures/hazards: No Cognitive needs: Yes (walker) Hearing needs: No Vision needs: Yes (Rx glasses) Meds Allergies Allergy/AdvReac Type Severity Reaction Status Date / Time diphenhydramine AdvReac Anxiety Verified 12/25/24 09:26 Active Medications: Current Medications Acetaminophen (Acetaminophen 325 Mg Tablet) 650 mg PO Q6H PRN PRN Reason: Pain, Mild 1-3,fever,headache Amlodipine Besylate (Amlodipine Besylate 10 Mg Tablet) 10 mg PO DAILY PAYAL; Protocol Atorvastatin Calcium (Atorvastatin Calcium 80 Mg Tablet) 80 mg PO BEDTIME PAYAL Last Admin: 12/25/24 21:00 Dose: Not Given Calcium Carbonate (Calcium Carbonate 750 Mg Tab.Chew) 750 mg PO Q4H PRN PRN Reason: Heartburn Folic Acid (Folic Acid 1 Mg Tablet) 1 mg PO DAILY PAYAL Hydroxyzine HCl (Hydroxyzine Hcl 10 Mg Tablet) 10 mg PO Q6H PRN PRN Reason: Anxiety Lisinopril (Lisinopril 40 Mg Tablet) 40 mg PO DAILY PAYAL; Protocol Magnesium Hydroxide (Milk Of Magnesia 30 Ml Oral.Susp) 30 ml PO DAILY PRN PRN Reason: Constipation Melatonin (Melatonin 3 Mg Tablet) 6 mg PO BEDTIME PRN PRN Reason: Insomnia Metoprolol Succinate (Metoprolol Succinate Er 25 Mg Tab.Er.24h) 25 mg PO DAILY PAYAL; Protocol Non-Formulary Medication (Tobramycin-Dexamethasone) 1 drop EYE-LEFT QID [facility] Non-Formulary Medication (Linaclotide [Linzess]) 145 mcg PO DAILY PRN PRN Reason: Constipation Omeprazole (Omeprazole 40 Mg Capsule.Dr) 40 mg PO DAILY PAYAL Sodium Chloride (0.9 % Sodium Chloride Flush 3 Ml Syringe) 3 ml IVFLUSH QSHIFT PAYAL Last Admin: 12/26/24 05:20 Dose: Not Given Home Medications ?Medication ?Instructions ?Recorded ?Confirmed ?Last Taken ?Type lisinopril 40 mg tablet 40 mg PO DAILY 03/10/21 12/25/24 12/24/24 History acetaminophen 325 mg tablet 975 mg PO Q8H PRN Pain 05/09/24 12/25/24 12/24/24 History amlodipine 10 mg tablet 10 mg PO DAILY 10/02/24 12/25/24 12/24/24 History rivaroxaban 20 mg tablet (Xarelto) 20 mg PO DAILY@1700 12/14/24 12/25/24 12/19/24 History Held on 12/24/24. Instructions: Resume on 12/28/24. linaclotide 145 mcg capsule 145 mcg PO DAILY PRN Constipation 12/15/24 12/25/24 12/24/24 History (Linzess) tobramycin 0.3 %-dexamethasone 0.1 1 drp ophthalmic-Left QID 12/15/24 12/25/24 12/24/24 History % eye drops,suspension Physical Exam Vital Signs: Vital Signs: Last Vital Signs Temp 97.2 F 12/26/24 11:33 Pulse 80 12/26/24 11:33 Resp 16 12/26/24 11:33 BP 141/75 H 12/26/24 11:33 Pulse Ox 100 12/26/24 11:33 O2 Del Method Room Air 12/26/24 11:33 BMI result Body Mass Index 23.9 Neuro: Other: She is alert oriented to person and place to month and year but not to date. She has difficulty following complex commands and was unable to subtract 3 from 100. She could not recall the date of her son correctly other than the month. She has difficulty tracking with her eyes horizontally. Cranial nerves otherwise normal other than a mild right lower quadrant visual field defect. She has an upward drift of the right upper extremity and mild weakness in the left deltoid. Lower extremity strength is normal plantar responses are flexor. She has difficulty with [id number] test bilaterally which appears to be more spatial Results Labs 12/26/24 08:26 12/26/24 08:26 Labs: Short CBC 12/26/24 Range/Units 08: WBC 11.5 H (4.8-10.8) X10*3/uL Hgb 11.9 L (12.0-16.0) g/dl Hct 39.0 (37.0-47.0) % Plt Count 675 H (160-400) X10*3/uL [facility] 12/26/24 08:26 Sodium 137 Potassium 4.0 Chloride 106 Carbon Dioxide 21 L BUN 26 H Creatinine 1.06 Calcium 10.8 H Assessment and Plan (1) Stroke: Qualifiers: CVA mechanism: occlusion Laterality of affected vessel: bilateral Precerebral and cerebral artery: carotid artery Qualified Code(s): I63.233 - Cerebral infarction due to unspecified occlusion or stenosis of bilateral carotid arteries Status: Acute Plan Multiple acute cortical infarcts predominantly left parieto-occipital and left parietal region and some in the right parietal cortex. These could be related to low flow phenomena versus multiple emboli. Because there small 1 would expect that she will make a good recovery. Recommendation start dual platelet therapy with aspirin and clopidogrel as soon as cleared by vascular surgery. At some point in the left carotid endarterectomy will be done but I would hold off for a few weeks. PT and OT evaluation. I have personally reviewed the MRIs and CTA is and also reviewed them with Dr. Zhu who had seen her initially. Procedures Date of Service Date of Service: 12/26/24
--- NOTE | 2024-12-26 12:22 | MHC.CM.PN ---
Per RN CM, Patient has been changed from OBSERVATION to INPATIENT;RN CM is addressing IMM with Patient.
--- NOTE | 2024-12-26 12:27 | MHC.SL.SWA ---
Speech Pathologist Impression: Swallow WFL Risk of Aspiration Due to: Acute stroke Dysphasia Diet Status: Upgrade from NPO, start on REGULAR/THIN Liquid Consistency and Strategies for Safe Swallow: Liquid Intake Recommendation: Thin Solid Food Consistency: Dietary Recommendations: Regular Oral Medication Intake: Whole with Liquid Please contact the pharmacy regarding appropriate crushable or liquid drug formulations that are available whenever modified delivery is recommended. Supervision While Eating and Drinking for Safe Swallow: Total Assistance (1:1) Recommendation for Speech: Inpatient Speech Therapy Comment: Recommend 1 f/u to monitor tolerance of unmodified diet and to screen speech/language. Frequency/Duration: Date Range for Service Req: Timeline to reassess: Hands Parter Clinican/Clinical Fellow: No Supervisory Statement: I have reviewed and agree with the student/clinical fellow's documentation: N/A Speech Language Pathologist: Nelida Winchester M.A., CCC-LEATHER GRADER
--- NOTE | 2024-12-26 12:58 | HO.PM.IMPN ---
Subjective Subjective Date of Service: 12/26/24 Interval History: mild LUE weakness, some recall difficulty and some L/R differentiation issues hematoma at L CEA site improved Review of Systems Review of Systems: Yes all other systems are reviewed and are negative Physical Exam Vital Signs: Vital Signs: Last Vital Signs Temp 97.2 F 12/26/24 11:33 Pulse 80 12/26/24 11:33 Resp 16 12/26/24 11:33 BP 141/75 H 12/26/24 11:33 Pulse Ox 100 12/26/24 11:33 O2 Del Method Room Air 12/26/24 11:33 BMI result Body Mass Index 23.9 Gen: in no acute distress HEENT: sclera anicteric, moist mucus membranes Neck: supple, L carotid surgical site with hematoma Lungs: clear to auscultation bilaterally Heart: regular rate and rhythm, no murmurs Abd: soft, non-tender, non-distended Ext: no edema Skin: warm/well-perfused Neuro: alert and oriented x3, mild LUE weakness proximally, RLQ visual field defect, mild recall difficulty Psych: appropriate affect Objective Data Active Medications Acetaminophen (Acetaminophen 325 Mg Tablet) 650 mg PO Q6H PRN PRN Reason: Pain, Mild 1-3,fever,headache Amlodipine Besylate (Amlodipine Besylate 10 Mg Tablet) 10 mg PO DAILY [facility]; Protocol Last Admin: 12/26/24 11:57 Dose: 10 mg Documented By: DINORA Atorvastatin Calcium (Atorvastatin Calcium 80 Mg Tablet) 80 mg PO BEDTIME [facility] Last Admin: 12/25/24 21:00 Dose: Not Given Documented By: NATALIO Non-Admin Reason: NPO Calcium Carbonate (Calcium Carbonate 750 Mg Tab.Chew) 750 mg PO Q4H PRN PRN Reason: Heartburn Folic Acid (Folic Acid 1 Mg Tablet) 1 mg PO DAILY [facility] Last Admin: 12/26/24 11:58 Dose: 1 mg Documented By: DINORA Hydroxyzine HCl (Hydroxyzine Hcl 10 Mg Tablet) 10 mg PO Q6H PRN PRN Reason: Anxiety Lisinopril (Lisinopril 40 Mg Tablet) 40 mg PO DAILY [facility]; Protocol Last Admin: 12/26/24 11:57 Dose: 40 mg Documented By: DINORA Magnesium Hydroxide (Milk Of Magnesia 30 Ml Oral.Susp) 30 ml PO DAILY PRN PRN Reason: Constipation Melatonin (Melatonin 3 Mg Tablet) 6 mg PO BEDTIME PRN PRN Reason: Insomnia Metoprolol Succinate (Metoprolol Succinate Er 25 Mg Tab.Er.24h) 25 mg PO DAILY [facility]; Protocol Last Admin: 12/26/24 11:57 Dose: 25 mg Documented By: DINORA Non-Formulary Medication (Tobramycin-Dexamethasone) 1 drop EYE-LEFT QID [facility] Non-Formulary Medication (Linaclotide [Linzess]) 145 mcg PO DAILY PRN PRN Reason: Constipation Omeprazole (Omeprazole 40 Mg Capsule.) 40 mg PO DAILY [facility] Last Admin: 12/26/24 11:58 Dose: 40 mg Documented By: DINORA Sodium Chloride (0.9 % Sodium Chloride Flush 3 Ml Syringe) 3 ml IVFLUSH QSHIFT [facility] Last Admin: 12/26/24 11:58 Dose: 3 ml Documented By: DINORA Labs 12/26/24 08:26 12/26/24 08:26 Labs: Laboratory Results - last 24 hr 12/26/24 08:26 MCV 81.6 MCH 24.9 L MCHC 30.5 L RDW 16.4 H Plt Count 675 H MPV 8.3 L Absolute Nucleated RBC 0.000 Nucleated RBC % (auto) 0.0 Anion Gap 14 Estim Creat Clear Calc 44.9 Estimated GFR 51 Random Glucose 101 Calcium 10.8 H Impressions Brain MRI 12/25/24 15:28 IMPRESSION: [Frontal, parietal and occipital cortical-based acute infarction likely secondary to showered emboli or vasculitis. Small area of right parietal cortical acute infarction is noted as well. There is no acute bleed seen. Encephalomalacia right posterior parietal lobe and periventricular white matter frontal lobe. Chronic small vessel ischemia changes in the periventricular region of both cerebral hemispheres especially in the right centrum semiovale. Results were immediately tiger text. to Dr Stanley Roberson at 4:36 PM. It was made aware of acute results. Electronically signed by: Frank Ceja MD 12/25/2024 04:46 PM [facility] [place] and Plan (1) Stroke: Status: Acute Assessment and Plan: d2, 74yo F recently admitted for TIA 12/14 and found to have severe bilateral internal carotid stenosis (90% R, 75% L), s/p R CEA 12/20, postoperative course complicated by hematoma and discharged home 12/24 with plan to resume Xarelto + ASA 12/28; however, became unresponsive upon arrival home and returned to the hospital with concerns for encephalopathy, found to have multiple acute cortical strokes acute strokes carotid stenosis - multiple acute cortical infarcts predominantly left parieto-occipital and left parietal region and some in the right parietal cortex; due to low-flow state vs. multiple emboli per Neurology. Cannot give anticoagulation or antiplatelet at this point due to hematoma but per Vascular Surgery, OK to resume 12/28 if no further bleeding. Will keep BP >130. PT/OT evaluations done, suggest AIR placement as her rehabilitation potential is excellent. Continue high-intensity statin. Will eventually need R CEA. post-CEA hematoma, 4 x 4 x 8 cm - hold anticoagulation/antiplatelet therapy as above; Vascular Surgery consulted acute encephalopathy due to stroke - resolving, still with some recall and visual/spatial defects pAF - anticoagulation held as below; continue metoprolol succinate HTN - continue metoprolol succinate, lisinopril, and amlodipine with goal of SBP no less than 130 in face of acute stroke CKD3 - SCr at baseline VTE ppx: SCDs dispo: AIR In my clinical judgment, the patient requires continued inpatient hospitalization for the following reasons: acute stroke, high risk for bleeding and stroke Total time managing care of this patient today: 50 minutes. Quality Stroke Does the patient have a stroke diagnosis?: No VTE Prior VTE?: No VTE Risk Level:: Medical - low VTE Device Contraindication: N/A - Device Ordered VTE Drug Contraindication: Treatment Not Indicated
--- NOTE | 2024-12-26 13:00 | P.CONGS_ITS ---
History of Present Illness Consult details Consult date: 12/26/24 Reason for consult: other Narrative: 74-year-old female who presented to the emergency room for an acute fall. She had most recently undergone right carotid endarterectomy with me acutely for questionable TIA/stroke. Postoperatively had significant bleeding issues all her anticoagulation had to be held. She had stable hemoglobin and a hematoma but was subsequently discharged in stable condition. She did return the following day with new onset confusion and a fall. Upon re-workup she appears to have new left-sided stroke from questionable low-flow phenomenon verse embolic etiology. She was stable this morning tolerating a regular diet comfortable in bed. Review of Systems 2 Review of Systems: Yes all other systems are reviewed and are negative Constitutional: Constitutional: Reports no additional constitutional complaints ENT: Reports Normal hearing present Cardiovascular: Cardiovascular: Denies chest pain, Denies chest pain at rest, Denies chest pain with activity and Denies pedal edema Respiratory: Respiratory: Denies cough Gastrointestinal: Gastrointestinal: Denies abdominal pain Musculoskeletal: Musculoskeletal: Denies abnormal gait, Denies muscle cramps and Denies radiating pain into limb Integumentary/Breasts: Skin/Breast: Denies skin ulcer and Denies wounds Neurologic: Reports Normal hearing present and Denies abnormal gait Psychiatric: Psychiatric: Reports no additional psychiatric complaints PMFSH Past Medical History Medical History Polycythemia vera Postoperative nausea Osteopenia Hx of Lyme disease GERD (gastroesophageal reflux disease) Paroxysmal atrial fibrillation HTN (hypertension) Persistent atrial fibrillation Family History Family History Father Cancer Stroke Mother Diabetes Surgical History Surgical History History of total right knee replacement History of esophagogastroduodenoscopy (EGD) Hx of section Hx of hysterectomy Hx of colonoscopy (~08/13/21) Hx of appendectomy Social History Social History Household Members: None Housing: House Are you a primary home health care respiratory therapist to a significant other at home: Yes ( with Alzheimer's and Parkinson's) Do you presently have visiting nurse or other home services: Yes Comment: medicated Patient Tobacco Use Status: Never used Tobacco Smoked in Last 30 Days: No e-Cigarette/Vaping Use: Never Used Second Hand Smoke Exposure: No Use of substances other than those prescribed or required for medical reasons: No Currently Displaying Signs/Symptoms of Drug Intoxication Withdrawal: No Have you been hit, kicked, punched, or otherwise hurt by someone within the past year? If so, by whom?: No Do you feel safe in your current relationship?: No Current Relationship Is there a partner from a previous relationship who is making you feel unsafe now?: No Are you made to feel afraid or neglected: No Advance Directives: Yes Advance Directives on File: Yes Advance Directives Date on File: 03/11/21 Do you have a plan to hurt others: No Plan Recently lost weight without trying: No How much weight loss: Not applicable Eating poorly because of decreased appetite: No Nutrition screen score: 0 Nutrition Risks: No Nutritional Risk Patient : No : No Poor oral hygiene: No service: No Current occupational status: retired Current occupational exposures/hazards: No Cognitive needs: Yes (walker) Hearing needs: No Vision needs: Yes (Rx glasses) Meds Allergies Allergy/AdvReac Type Severity Reaction Status Date / Time diphenhydramine AdvReac Anxiety Verified 12/25/24 09:26 Active Medications: Current Medications Acetaminophen (Acetaminophen 325 Mg Tablet) 650 mg PO Q6H PRN PRN Reason: Pain, Mild 1-3,fever,headache Amlodipine Besylate (Amlodipine Besylate 10 Mg Tablet) 10 mg PO DAILY [facility]; Protocol Last Admin: 12/26/24 11:57 Dose: 10 mg Atorvastatin Calcium (Atorvastatin Calcium 80 Mg Tablet) 80 mg PO BEDTIME [facility] Last Admin: 12/25/24 21:00 Dose: Not Given Calcium Carbonate (Calcium Carbonate 750 Mg Tab.Chew) 750 mg PO Q4H PRN PRN Reason: Heartburn Folic Acid (Folic Acid 1 Mg Tablet) 1 mg PO DAILY [facility] Last Admin: 12/26/24 11:58 Dose: 1 mg Hydroxyzine HCl (Hydroxyzine Hcl 10 Mg Tablet) 10 mg PO Q6H PRN PRN Reason: Anxiety Lisinopril (Lisinopril 40 Mg Tablet) 40 mg PO DAILY [facility]; Protocol Last Admin: 12/26/24 11:57 Dose: 40 mg Magnesium Hydroxide (Milk Of Magnesia 30 Ml Oral.Susp) 30 ml PO DAILY PRN PRN Reason: Constipation Melatonin (Melatonin 3 Mg Tablet) 6 mg PO BEDTIME PRN PRN Reason: Insomnia Metoprolol Succinate (Metoprolol Succinate Er 25 Mg Tab.Er.24h) 25 mg PO DAILY [facility]; Protocol Last Admin: 12/26/24 11:57 Dose: 25 mg Non-Formulary Medication (Tobramycin-Dexamethasone) 1 drop EYE-LEFT QID [facility] Non-Formulary Medication (Linaclotide [Linzess]) 145 mcg PO DAILY PRN PRN Reason: Constipation Omeprazole (Omeprazole 40 Mg Capsule.Dr) 40 mg PO DAILY [facility] Last Admin: 12/26/24 11:58 Dose: 40 mg Sodium Chloride (0.9 % Sodium Chloride Flush 3 Ml Syringe) 3 ml IVFLUSH QSHIFT [facility] Last Admin: 12/26/24 11:58 Dose: 3 ml Home Medications ?Medication ?Instructions ?Recorded ?Confirmed ?Last Taken ?Type lisinopril 40 mg tablet 40 mg PO DAILY 03/10/2112/1512/24/24 History acetaminophen 325 mg tablet 975 mg PO Q8H PRN Pain 12/25/24 12/24/24 History amlodipine 10 mg tablet 10 mg PO DAILY 10/02/2412/1512/24/24 History rivaroxaban 20 mg tablet (Xarelto) 20 mg PO DAILY@1700 12/14/24 12/25/24 12/19/24 History Held on 12/24/24. Instructions: Resume on 12/28/24. linaclotide 145 mcg capsule 145 mcg PO DAILY PRN Const ipation 12/15/24 12/25/24 12/24/24 History (Linzess) tobramycin 0.3 %-dexamethasone 0.1 1 drp ophthalmic-Le ft QID 12/15/24 12/25/24 12/24/24 History % eye drops,suspension Physical Exam 2 Vital Signs: Vital Signs: Last Vital Signs Temp 97.2 F 12/26/24 11:33 Pulse 80 12/26/24 11:33 Resp 16 12/26/24 11:33 BP 141/75 H 12/26/24 11:33 Pulse Ox 100 12/26/24 11:33 O2 Del Method Room Air 12/26/24 11:33 BMI result Body Mass Index 23.9 Const: General: cooperative, healthy appearing and comfortable O rientation/consciousness: oriented to person, oriented to place and oriented to time HEENT: Head: Yes normal to inspection Neck: Neck: Yes normal visual inspection Carotids: no bruits Chest: Chest palpation & inspection: normal inspection of the chest Resp: Effort & Inspection: normal respiratory effort and able to speak in complete sentences Auscultation: clear to auscultation bilaterally, no crackles, no rales, no rhonchi and no wheezes Cardio: Rate: regular rate Rhythm: regular rhythm Heart sounds: S1 normal heart sound present and S2 normal heart sound present Bruits: no carotid bruits Peripheral pulses: Peripheral pulses 2+ throughout GI: Inspection: Yes normal to inspection Skin: Other: Right neck hematoma - overlying dressing saturated but stable Wounds: no wounds Hair: normal Neuro: General: oriented to person, oriented to place and oriented to time Cranial nerves: Yes CN's II-XII intact bilaterally and Yes Normal hearing present Cognition (Neuro): normal cognition Motor exam (neuro): 5/5 motor strength present throughout Extrem: Other: venous exam: No significant superficial varicosities or spider telangiectasias, minimal edema General: No clubbing, No cyanosis and No edema Psych: Appearance: grossly normal Mental Status: mental status grossly normal Speech and movement: Normal speech and movement present Results Labs 12/26/24 08:26 12/26/24 08:26 Labs: Abnormal lab results 12/26/24 Range/Units 08:26 WBC 11.5 H (4.8-10.8) X10*3/uL Hgb 11.9 L (12.0-16.0) g/dl MCH 24.9 L (27.0-33.0) pg MCHC 30.5 L (31.0-35.0) g/dl RDW 16.4 H (11.0-16.0) % Plt Count 675 H (160-400) X10*3/uL MPV 8.3 L (9.4-12.3) fL Carbon Dioxide 21 L (22-29) mmol/L BUN 26 H (9-16) mg/dL Calcium 10.8 H (8.4-10.2) mg/dL Short CBC 12/26/24 Range/Units 08:26 WBC 11.5 H (4.8-10.8) X10*3/uL Hgb 11.9 L (12.0-16.0) g/dl Hct 39.0 (37.0-47.0) % Plt Count 675 H (160-400) X10*3/uL BMP 12/26/24 08:26 Sodium 137 Potassium 4.0 Chloride 106 Carbon Dioxide 21 L BUN 26 H Creatinine 1.06 Calcium 10.8 H All other labs normal. Assessment and Plan (1) Carotid disease, bilateral: Qualifiers: Carotid artery disease type: stenosis Qualified Code(s): I65.23 - Occlusion and stenosis of bilateral carotid arteries Status: Acute Plan In short patient appears to be doing okay status post right carotid endarterectomy. Post CAT scan demonstrated a hematoma but no extravasation from the carotid site. In actuality the hematoma does appear to be reduced from discharge. Concern now is this new onset stroke. Upon workup she has 90% stenosis of the other side as well. It does appear to have an acute stroke. I would like her current carotid endarterectomy to stabilize in terms of the hematoma and bleeding. I would anticipate restarting anticoagulation this Tuesday. Unfortunately until then we will have to hold off. Await Neurology input. May require rehab. No acute intervention plan for this admission. Thank you for allowing us to assist in her care. If there are any questions or concerns please do not hesitate to contact us. Procedures Date of Service Date of Service: 12/26/24
[2024-12-27 03:06] VITALS: BP 129/73; PULSE 71; RESP 16; TEMP 36.4; O2SAT 98
[2024-12-27 07:00] LABS: Hematocrit 35.5 % (37.0-47.0); Hemoglobin 10.9 g/dl (12.0-16.0); Mean Corpuscular HGB Conc 30.7 g/dl (31.0-35.0); Mean Corpuscular Hemoglobin 25.2 pg (27.0-33.0); Mean Corpuscular Volume 82.2 fL (80.0-98.0); NRBC Abs Auto 0.000 X10*3/uL (0.0-0.012); NRBC Pct Auto 0.0 /100WBC (0.0-0.2); Platelet Count 609 X10*3/uL (160-400); Red Blood Count 4.32 X10*6/uL (4.20-5.50); White Blood Count 10.4 X10*3/uL (4.8-10.8)
[2024-12-27 07:14] VITALS: BP 107/63; PULSE 70; RESP 18; TEMP 36.4; O2SAT 99
[2024-12-27 07:24] LABS: Anion Gap 10 (12-20); Blood Urea Nitrogen 25 mg/dL (9-16); Calcium 10.3 mg/dL (8.4-10.2); Carbon Dioxide 26 mmol/L (22-29); Chloride 103 mmol/L (96-108); Creatinine Clr Calc Pharmacy 42.1; Estimated Glomerular Filt Rate 47; Potassium 4.2 mmol/L (3.3-5.1); Sodium 135 mmol/L (135-145)
[2024-12-27] MEDS: 0.9 % Sodium Chloride Flush 3 ML SYRINGE IVFLUSH ×3 (08:04→21:10)
[2024-12-27 11:04] VITALS: BP 130/65; PULSE 79; RESP 18; TEMP 36.4; O2SAT 100
--- NOTE | 2024-12-27 11:10 | HO.VASCPN ---
Subjective Subjective Date of Service: 12/27/24 Patient reports: no new complaints and feels better Interval history: Patient seen and examined. No events overnight. Dressing in the right neck was change in appears to be dry intact. Overall hematoma appears to be significantly better. In general she is frustrated with her overall situation. Is requiring assistance for eating. Now for routine follow-up. Physical Exam Vital Signs: Vital Signs: Last Vital Signs Temp 97.6 F 12/27/24 11:04 Pulse 79 12/27/24 11:04 Resp 18 12/27/24 11:04 BP 130/65 12/27/24 11:04 Pulse Ox 100 12/27/24 11:04 O2 Del Method Room Air 12/27/24 11:04 BMI result Body Mass Index 23.9 Const: General: cooperative, healthy appearing and no acute distress Orientation/consciousness: oriented to person, oriented to place and oriented to time HEENT: Head: Yes normal to inspection Neck: Carotids: no bruits Chest: Chest palpation & inspection: normal inspection of the chest Resp: Effort & Inspection: normal respiratory effort and able to speak in complete sentences Auscultation: clear to auscultation bilaterally Cardio: Rate: regular rate Heart sounds: S1 normal heart sound present and S2 normal heart sound present GI: Inspection: Yes normal to inspection Skin: Other: Right neck hematoma General skin exam: no rashes or lesions noted Wounds: no wounds Neuro: General: oriented to person, oriented to place, oriented to time and CN's II-XI intact bilaterally Extrem: General: Yes normal to inspection, Yes full ROM and Yes no clubbing, cyanosis or edema Psych: Appearance: grossly normal and well kempt Speech and movement: Normal speech and movement present Affect: normal affect Progress Note: A&P Assessment and plan (1) Carotid stenosis, bilateral: Status: Acute Assessment and Plan: She is doing well status post right carotid endarterectomy. Hematoma appears to be stabilized. She will be restarted on her anticoagulation tomorrow. Stable from my perspective for discharge. Typically I do like to wait a proximally 3 months prior to the next surgical intervention. Unfortunately due to the amount of disease we will my have to move up the timeline for her to prevent recurrent stroke here. This was discussed with the patient and her family who was at bedside. Stable from my perspective for discharge to acute rehab. She will follow up with me as an outpatient. Thank you for allowing us to assist in her care. Time Spent With Patient Time: Total time managing care of this patient today ____ minutes. Procedures Date of Service Date of Service: 12/27/24 Quality Stroke Does the patient have a stroke diagnosis?: No VTE Prior VTE?: No VTE Risk Level:: Medical - low VTE Device Contraindication: N/A - Device Ordered VTE Drug Contraindication: Treatment Not Indicated
--- NOTE | 2024-12-27 11:54 | HO.PM.IMPN ---
Subjective Subjective Date of Service: 12/27/24 Interval History: [place], depressed due to frustration at not being able to feed self Review of Systems Review of Systems: Yes all other systems are reviewed and are negative Physical Exam Vital Signs: Vital Signs: Last Vital Signs Temp 97.6 F 12/27/24 11:04 Pulse 79 12/27/24 11:04 Resp 18 12/27/24 11:04 BP 130/65 12/27/24 11:04 Pulse Ox 100 12/27/24 11:04 O2 Del Method Room Air 12/27/24 11:04 BMI result Body Mass Index 23.9 Gen: in no acute distress HEENT: sclera anicteric, moist mucus membranes Neck: supple, L carotid surgical site with dry dressing Lungs: clear to auscultation bilaterally Heart: regular rate and rhythm, no murmurs Abd: soft, non-tender, non-distended Ext: no edema Skin: warm/well-perfused Neuro: alert and oriented x3, mild LUE weakness proximally, RLQ visual field defect, mild recall difficulty Psych: appropriate affect Objective Data Active Medications Acetaminophen (Acetaminophen 325 Mg Tablet) 650 mg PO Q6H PRN PRN Reason: Pain, Mild 1-3,fever,headache Amlodipine Besylate (Amlodipine Besylate 10 Mg Tablet) 10 mg PO DAILY [facility]; Protocol Last Admin: 12/27/24 07:29 Dose: Not Given Documented By: FLOR Non-Admin Reason: Physician Approved Atorvastatin Calcium (Atorvastatin Calcium 80 Mg Tablet) 80 mg PO BEDTIME [facility] Last Admin: 12/26/24 20:19 Dose: 80 mg Documented By: ROYAL Calcium Carbonate (Calcium Carbonate 750 Mg Tab.Chew) 750 mg PO Q4H PRN PRN Reason: Heartburn Folic Acid (Folic Acid 1 Mg Tablet) 1 mg PO DAILY [facility] Last Admin: 12/27/24 07:56 Dose: 1 mg Documented By: FLOR Hydroxyzine HCl (Hydroxyzine Hcl 10 Mg Tablet) 10 mg PO Q6H PRN PRN Reason: Anxiety Lisinopril (Lisinopril 40 Mg Tablet) 40 mg PO DAILY [facility]; Protocol Last Admin: 12/27/24 07:30 Dose: Not Given Documented By: FLOR Non-Admin Reason: Physician Approved Magnesium Hydroxide (Milk Of Magnesia 30 Ml Oral.Susp) 30 ml PO DAILY PRN PRN Reason: Constipation Melatonin (Melatonin 3 Mg Tablet) 6 mg PO BEDTIME PRN PRN Reason: Insomnia Metoprolol Succinate (Metoprolol Succinate Er 25 Mg Tab.Er.24h) 25 mg PO DAILY [facility]; Protocol Last Admin: 12/27/24 07:32 Dose: Not Given Documented By: FLOR Non-Admin Reason: Physician Approved Non-Formulary Medication (Tobramycin-Dexamethasone) 1 drop EYE-LEFT QID [facility] Non-Formulary Medication (Linaclotide [Linzess]) 145 mcg PO DAILY PRN PRN Reason: Constipation Omeprazole (Omeprazole 40 Mg Capsule.Dr) 40 mg PO DAILY [facility] Last Admin: 12/27/24 07:56 Dose: 40 mg Documented By: FLOR Sodium Chloride (0.9 % Sodium Chloride Flush 3 Ml Syringe) 3 ml IVFLUSH QSHIFT [facility] Last Admin: 12/27/24 08:04 Dose: 3 ml Documented By: FLOR Labs 12/27/24 06:26 12/27/24 06:26 Labs: Laboratory Results - last 24 hr 12/27/24 06:26 MCV 82.2 MCH 25.2 L MCHC 30.7 L RDW 16.4 H Plt Count 609 H MPV 8.6 L Absolute Nucleated RBC 0.000 Nucleated RBC % (auto) 0.0 Anion Gap 10 L Estim Creat Clear Calc 42.1 Estimated GFR 47 Random Glucose 111 Calcium 10.3 H Assessment and Plan (1) Stroke: Status: Acute Assessment and Plan: d3, 74yo F recently admitted for TIA 12/14 and found to have severe bilateral internal carotid stenosis (90% R, 75% L), s/p R CEA 12/20, postoperative course complicated by hematoma and discharged home 12/24 with plan to resume Xarelto + ASA 12/28; however, became unresponsive upon arrival home and returned to the hospital with concerns for encephalopathy, found to have multiple acute cortical strokes acute strokes carotid stenosis - multiple acute cortical infarcts predominantly left parieto-occipital and left parietal region and some in the right parietal cortex; due to low-flow state vs. multiple emboli per Neurology. Cannot give anticoagulation or antiplatelet at this point due to hematoma but per Vascular Surgery, OK to resume 11/14 if no further bleeding. Will keep BP >130 and hold blood pressure medications if lower, in order to allow permissive hypertension to improve cerebral perfusion. PT/OT evaluations done and plan AIR placement as her rehabilitation potential is excellent. Continue high-intensity statin. Will eventually need R CEA per Vascular Surgery and the sooner the better [i.e., not to wait 3 mo] given her high risk for recurrent CVA post-CEA hematoma, 4 x 4 x 8 cm - hold anticoagulation/antiplatelet therapy as above; Vascular Surgery consulted; no active extravasation; resume anticoagulation/antiplatelet therapy tomorrow if no further bleeding acute encephalopathy due to stroke - resolving, still with some recall and visual/spatial defects and will benefit greatly from rehabilitation pAF - anticoagulation held as below; continue metoprolol succinate HTN - continue metoprolol succinate, lisinopril, and amlodipine with goal of SBP no less than 130 in setting of acute stroke CKD3 - SCr at baseline VTE ppx: SCDs dispo: AIR In my clinical judgment, the patient requires continued inpatient hospitalization for the following reasons: acute stroke, high risk for bleeding and stroke Total time managing care of this patient today: 40 minutes. Quality Stroke Does the patient have a stroke diagnosis?: No VTE Prior VTE?: No VTE Risk Level:: Medical - low VTE Device Contraindication: N/A - Device Ordered VTE Drug Contraindication: Treatment Not Indicated
--- NOTE | 2024-12-27 14:07 | MHC.SL.SWA ---
Speech Pathologist Impression: Risk of Aspiration Due to: Dysphasia Diet Status: Continue on Regular diet with THIN liquids, pills whole with liquid. Patient requires 1-1 assistance at all meals. Liquid Consistency and Strategies for Safe Swallow: Liquid Intake Recommendation: Thin Liquid Intake Strategies: Solid Food Consistency: Dietary Recommendations: Regular Additional Modifications to Solid Foods: Patient will need larger pieces of food (e.g. slab of meat) cut up, tray prepared, all containers open and available. Full, 1-1 assistance at all meals. Oral Medication Intake: Whole with Liquid Please contact the pharmacy regarding appropriate crushable or liquid drug formulations that are available whenever modified delivery is recommended. Compensatory Strategies and Precautions to be Taken for Safe Swallow: Sitting Upright (90 deg) Liquids from Straw Small Bites and Sips Alternate Liquids/Solids Supervision While Eating and Drinking for Safe Swallow: Total Assistance (1:1) Foods to Avoid: Swallowing Recommended Treatments: Recommendation for Speech: Inpatient Speech Therapy Comment: Recommend Patient seen at lunch, with DIGITAL SALES EXECUTIVE initially intending to screen speech/language skills. Patient was seated in bed, with lunch tray present in front of her, however she explained to DIGITAL SALES EXECUTIVE that she is unable to feed herself. Apparently, her son had been assisting her, so difficulty had not been noted by staff. DIGITAL SALES EXECUTIVE then assisted patient, including cutting up meat on tray, adding gravy, opening items, including straw into container of milk, and swathing patient with towel for meal. Patient was given fork with food for her to demonstrate the difficulty she is having, patient was able to lift fork to mouth, but then had difficulty locating mouth, apparently with visual/kinesthetic impairment for this adl. Patient then was fully assisted at meal, which she consumed with no evident swallowing difficulty. Patient was able to drink independently when given milk container and straw (able to lift and hold to drink). Patient noted that she has not had any difficulty with communication, demonstrated appropriate comprehension, expression, no evidence of word finding difficulty. Patient did share that she is feeling depressed about her circumstances, noted that she had become very emotional with the MD this morning, and welled up again with tears speaking about this. Depression and lability were discussed as both an aspect of CVA recovery as well as understandable in the context of significant life change. However, further speech/language testing is not indicated at this time, given patient's presentation and report that she is at her baseline with communication. Patient will need FULL ASSISTANCE (1-1) at meals, further assessment by OT is recommended to determine what accommodations are needed to assist patient with regaining independence with this ADL. No further Speech/Language tx likely needed at next level of care, as long as OT is addressing UE issues with eating, drinking. RN advised of need for assistance, white board in room changed to indicate this need. Frequency/Duration: Date Range for Service Req: Timeline to reassess: Roof Cement [employer] Paint Maker Clinican/Clinical Fellow: No Supervisory Statement: I have reviewed and agree with the student/clinical fellow's documentation: N/A Speech Language Pathologist: Larissa Rosen M.A., CCC-DIGITAL SALES EXECUTIVE
--- NOTE | 2024-12-27 14:26 | MHC.CM.PN ---
CM met with Son/HCP/PRIMARY Contact/Jacques to discuss dc planning. [facility] is Patient's first choice and they are following Patient's progress. Jacques would like to be involved with all dc planning and Patient is agreeable. CM will follow.
[2024-12-27 15:27] VITALS: BP 151/69; PULSE 84; RESP 18; TEMP 37.2; O2SAT 100
[2024-12-27 19:43] VITALS: BP 158/70; PULSE 92; RESP 16; TEMP 37.8; O2SAT 98
[2024-12-27] MEDS: Throat Lozenge, Medicated LOZENGE 1 LOZENGE MUCOUS MEM (22:27)
[2024-12-27 23:32] VITALS: BP 155/74; PULSE 90; RESP 16; TEMP 36.8; O2SAT 97
[2024-12-28] VITALS (7 sets, daily range): BP systolic 92–143; BP diastolic 58–79; PULSE 71–90; RESP 16–20; TEMP 36.7–37.2; O2SAT 94–99
[2024-12-28] MEDS: 0.9 % Sodium Chloride Flush 3 ML SYRINGE IVFLUSH ×3 (08:27→21:15)
[2024-12-28] MEDS: Metoprolol Succinate ER 25 MG TAB.ER.24H PO (08:57)
[2024-12-28 09:44] LABS: Hematocrit 36.6 % (37.0-47.0); Hemoglobin 11.5 g/dl (12.0-16.0)
--- NOTE | 2024-12-28 11:51 | P.PNIM_ITS ---
Subjective Subjective Date of Service: 12/28/24 Interval History: no bleeding from carotid wound somewhat better at feeding herself no new neurologic deficit eager to start rehab Review of Systems Review of Systems: Yes all other systems are reviewed and are negative Physical Exam 2 Vital Signs: Vital Signs: Last Vital Signs Temp 98.1 F 12/28/24 11:43 Pulse 90 12/28/24 11:43 Resp 20 12/28/24 11:43 BP 98/58 L 12/28/24 11:43 Pulse Ox 94 12/28/24 11:43 O2 Del Method Room Air 12/28/24 11:43 BMI result Body Mass Index 23.9 Gen: in no acute distress HEENT: sclera anicteric, moist mucus membranes Neck: supple, L carotid surgical site with dry dressing Lungs: clear to auscultation bilaterally Heart: regular rate and rhythm, no murmurs Abd: soft, non-tender, non-distended Ext: no edema Skin: warm/well-perfused Neuro: alert and oriented x3, mild LUE weakness proximally, RLQ visual field defect Psych: appropriate affect Objective Data Active Medications Acetaminophen (Acetaminophen 325 Mg Tablet) 650 mg PO Q6H PRN PRN Reason: Pain, Mild 1-3,fever,headache Last Admin: 12/28/24 10:21 Dose: 650 mg Documented By: COSTA Amlodipine Besylate (Amlodipine Besylate 10 Mg Tablet) 10 mg PO DAILY [facility]; Protocol Last Admin: 12/27/24 07:29 Dose: Not Given Documented By: FLOR Non-Admin Reason: Physician Approved Aspirin (Aspirin 81 Mg Tab.Chew) 81 mg PO DAILY [facility] Atorvastatin Calcium (Atorvastatin Calcium 80 Mg Tablet) 80 mg PO BEDTIME [facility] Last Admin: 12/27/24 21:10 Dose: 80 mg Documented By: ROYAL Benzocaine (Throat Lozenge, Medicated Lozenge) 1 lozenge MUCOUS MEM Q2H PRN PRN Reason: Sore Throat Last Admin: 12/27/24 22:27 Dose: 1 lozenge Documented By: ROYAL Calcium Carbonate (Calcium Carbonate 750 Mg Tab.Chew) 750 mg PO Q4H PRN PRN Reason: Heartburn Folic Acid (Folic Acid 1 Mg Tablet) 1 mg PO DAILY [facility] Last Admin: 12/28/24 08:26 Dose: 1 mg Documented By: COSTA Hydroxyzine HCl (Hydroxyzine Hcl 10 Mg Tablet) 10 mg PO Q6H PRN PRN Reason: Anxiety Lisinopril (Lisinopril 40 Mg Tablet) 40 mg PO DAILY [facility]; Protocol Last Admin: 12/27/24 07:30 Dose: Not Given Documented By: FLOR Non-Admin Reason: Physician Approved Magnesium Hydroxide (Milk Of Magnesia 30 Ml Oral.Susp) 30 ml PO DAILY PRN PRN Reason: Constipation Melatonin (Melatonin 3 Mg Tablet) 6 mg PO BEDTIME PRN PRN Reason: Insomnia Metoprolol Succinate (Metoprolol Succinate Er 25 Mg Tab.Er.24h) 25 mg PO DAILY [facility]; Protocol Last Admin: 12/28/24 08:57 Dose: 25 mg Documented By: COSTA Non-Formulary Medication (Tobramycin-Dexamethasone) 1 drop EYE-LEFT QID [facility] Non-Formulary Medication (Linaclotide [Linzess]) 145 mcg PO DAILY PRN PRN Reason: Constipation Omeprazole (Omeprazole 40 Mg Capsule.Dr) 40 mg PO DAILY [facility] Last Admin: 12/28/24 08:26 Dose: 40 mg Documented By: COSTA Rivaroxaban (Rivaroxaban 20 Mg Tablet) 20 mg PO DAILY@1700 [facility] Sodium Chloride (0.9 % Sodium Chloride Flush 3 Ml Syringe) 3 ml IVFLUSH QSHIFT [facility] Last Admin: 12/28/24 08:27 Dose: 3 ml Documented By: COSTA Labs 12/28/24 09:13 12/27/24 06:26 Assessment and Plan (1) Stroke: Status: Acute Assessment and Plan: d4, 74yo F recently admitted for TIA 12/14 and found to have severe bilateral internal carotid stenosis (90% R, 75% L), s/p R CEA 12/20, postoperative course complicated by hematoma and discharged home 12/24 with plan to resume Xarelto + ASA 12/28; however, became unresponsive upon arrival home and returned to the hospital with concerns for encephalopathy, found to have multiple acute cortical strokes acute strokes carotid stenosis - multiple acute cortical infarcts predominantly left parieto-occipital and left parietal region and some in the right parietal cortex; due to low-flow state vs. multiple emboli per Neurology. Initially blood thinners held due to large carotid hematoma. Per Vascular Surgery recommendation, will resume anticoagulation and antiplatelet agent today [ASA this AM, Xarelto this evening] and monitor overnight. Keep BP >130 and hold blood pressure medications if lower, in order to allow permissive hypertension to improve cerebral perfusion. PT/OT evaluations done and plan AIR placement as her rehabilitation potential is excellent. Continue high-intensity statin. Needs R CEA per Vascular Surgery and the sooner the better [i.e., not to wait 3 mo] given her high risk for recurrent CVA post-L CEA hematoma, 4 x 4 x 8 cm: restart anticoagulation/antiplatelet therapy as above; recheck H+H in AM acute encephalopathy due to stroke: resolving, still with some recall and visual/spatial defects and will benefit greatly from rehabilitation pAF: resume Xarelto; continue metoprolol succinate HTN: continue metoprolol succinate, lisinopril, and amlodipine with goal of SBP no less than 130 in setting of acute stroke CKD3: SCr at baseline VTE ppx: Xarelto as above dispo: AIR In my clinical judgment, the patient requires continued inpatient hospitalization for the following reasons: acute stroke, high risk for bleeding and stroke, monitoring for bleeding from surgical wound Total time managing care of this patient today: 35 minutes. Quality Stroke Does the patient have a stroke diagnosis?: No VTE Prior VTE?: No VTE Risk Level:: Medical - low VTE Device Contraindication: N/A - Device Ordered VTE Drug Contraindication: Treatment Not Indicated
[2024-12-28 12:58] LABS: Glucose, Whole Blood 134 mg/dL (60-115)
[2024-12-28] MEDS: iohexoL 350 MG/ML 100 ML INFUS..BTL IV (13:23)
[2024-12-28] MEDS: Lactated Ringers 500 ML 999 ML IV (13:30)
--- NOTE | 2024-12-28 13:37 | MHC.STROKE ---
Notified by Dr. Allred of stroke alert initiation on bed 461. These are repeat scans as patient had them done on arrival. Pt with recent admission for TIA, CEA with post op bleeding. Aspirin and anticoags have been held secondary to the bleeding. This afternoon, questions of left sided facial droop and pronator drift. BP noted to be in the high 90s systolic. Pt to CT scan and back. IVF to raise blood pressure. Pt awake, alert and oriented, answering questions appropriately. Will continue to assist as needed.
--- NOTE | 2024-12-28 13:52 | MHC.SLORD ---
Speech Language Pathology Order Status: CRYSTAL MOUNTER attempted to see patient for dypshagia tx this a.m. Patient reported feeling nauseous, OT/PT also leaving room d/t patient not feeling well. Patient politely declined offerings of saltines and water. She asked that CRYSTAL MOUNTER elevate HoB slightly before leaving the room. CRYSTAL MOUNTER to f/u when appropriate.
--- NOTE | 2024-12-28 16:11 | PC.NURSE ---
@1238 pt stated they are feeling unwell. BP 98/58. other vitals and POC WNL. neuros slight/minimal R side facial droop noted and slow to respond/word finding. MD made aware and assessed at bedside. CT head and CTA of head/ct orderd STAT for stroke alert. IVF bolus ordered see APR.
--- NOTE | 2024-12-28 16:48 | MHC.SL.SWA ---
Speech Pathologist Impression:WFL Dysphasia Diet Status: No Change Liquid Consistency and Strategies for Safe Swallow: Liquid Intake Recommendation: Thin Solid Food Consistency: Dietary Recommendations: Regular Additional Modifications to Solid Foods: Further ST intervention as patient is tolerating unmodified diet. Re-refer with any concerns or changes. Please note, patient needs 1:1 ASSIST AT MEALS. Patient will need larger pieces of food (e.g. slab of meat) cut up, tray prepared, all containers open and available. Full, 1-1 assistance at all meals. Oral Medication Intake: Whole with Liquid Please contact the pharmacy regarding appropriate crushable or liquid drug formulations that are available whenever modified delivery is recommended. Compensatory Strategies and Precautions to be Taken for Safe Swallow: Sitting Upright (90 deg) Liquids from Straw Small Bites and Sips Alternate Liquids/Solids Supervision While Eating and Drinking for Safe Swallow: Total Assistance (1:1) Recommendation for Speech: D/C Door Fitter Clinican/Clinical Fellow: No Supervisory Statement: I have reviewed and agree with the student/clinical fellow's documentation: N/A Speech Language Pathologist: Nelida Winchester M.A., CCC-MALWARE ANALYST
[2024-12-28] MEDS: Throat Lozenge, Medicated LOZENGE 1 LOZENGE MUCOUS MEM (21:15)
[2024-12-29] VITALS (7 sets, daily range): BP systolic 121–162; BP diastolic 63–85; PULSE 74–91; RESP 17–20; TEMP 36.7–37.7; O2SAT 95–98
[2024-12-29 07:35] LABS: Hematocrit 35.9 % (37.0-47.0); Hemoglobin 11.1 g/dl (12.0-16.0); Mean Corpuscular HGB Conc 30.9 g/dl (31.0-35.0); Mean Corpuscular Hemoglobin 24.9 pg (27.0-33.0); Mean Corpuscular Volume 80.5 fL (80.0-98.0); NRBC Abs Auto 0.000 X10*3/uL (0.0-0.012); NRBC Pct Auto 0.0 /100WBC (0.0-0.2); Platelet Count 544 X10*3/uL (160-400); Red Blood Count 4.46 X10*6/uL (4.20-5.50); White Blood Count 8.4 X10*3/uL (4.8-10.8)
[2024-12-29 07:52] LABS: Anion Gap 12 (12-20); Blood Urea Nitrogen 21 mg/dL (9-16); Calcium 9.9 mg/dL (8.4-10.2); Carbon Dioxide 22 mmol/L (22-29); Chloride 104 mmol/L (96-108); Creatinine Clr Calc Pharmacy 40.3; Estimated Glomerular Filt Rate 45; Potassium 3.9 mmol/L (3.3-5.1); Sodium 134 mmol/L (135-145)
[2024-12-29] MEDS: 0.9 % Sodium Chloride Flush 3 ML SYRINGE IVFLUSH ×3 (08:02→19:53)
--- NOTE | 2024-12-29 15:16 | MHC.CM.PN ---
Addendum entered by Marilee Licona 12/30/24 11:06: UPDATED IMM DELIVERED ON 12/30/24 Original Note: CM INFORMED PT IS ASKING WHEN SHE WILL LEAVE SHE STATED SHE WAS ACCEPTED AT [facility] AND DOES NOT WANT TO WAIT TOO LONG CM INFORMED RN [facility] HAS NOT OFFERED A BED AND STATED THEY WOULD REVIEW TODAY [facility] RESPONDED AROUND 1500 HOURS STATING THEY WOULD REVIEW AGAIN ON TUESDAY, THEY WILL NOT TAKE PT OVER THE WEEKEND BECAUSE SHE STARTED HER AC'S JUST YESTERDAY
[2024-12-29] MEDS: Rivaroxaban 15 MG TABLET PO (15:56)
[2024-12-29] MEDS: guaiFEN/Codeine SF 200/20/10ML 10 ML LIQUID PO ×2 (16:23→21:31)
--- NOTE | 2024-12-29 16:49 | HO.PM.IMPN ---
Subjective Subjective Date of Service: 12/29/24 Interval History: No acute issues overnight. No further confusion Review of Systems Denies chest pain Denies shortness of breath Denies nausea vomiting diarrhea Denies fever chills Physical Exam Vital Signs: Vital Signs: Last Vital Signs Temp 99.1 F 12/29/24 16:00 Pulse 87 12/29/24 16:00 Resp 17 12/29/24 16:00 BP 142/77 H 12/29/24 16:00 Pulse Ox 97 12/29/24 16:00 O2 Del Method Room Air 12/29/24 16:00 BMI result Body Mass Index 23.9 Const: Other: Awake alert oriented x3 in no acute distress Resp: Other: Clear to auscultation bilaterally no rales rhonchi or wheezes Cardio: Other: No S4; positive S1-S2; no S3 murmurs rubs or gallops GI: Other: Soft nontender nondistended normoactive bowel sounds Neuro: Other: Cranial nerves 2-12 grossly intact as tested. Motor is 5/5 all extremities sensation is intact. Cognition appropriate Extrem: Other: No edema bilaterally Objective Data Active Medications Acetaminophen (Acetaminophen 325 Mg Tablet) 650 mg PO Q6H PRN PRN Reason: Pain, Mild 1-3,fever,headache Last Admin: 12/28/24 10:21 Dose: 650 mg Documented By: COSTA Amlodipine Besylate (Amlodipine Besylate 10 Mg Tablet) 10 mg PO DAILY [facility]; Protocol On Hold: 12/28/24 12:48 Last Admin: 12/27/24 07:29 Dose: Not Given Documented By: FLOR Non-Admin Reason: Physician Approved Aspirin (Aspirin 81 Mg Tab.Chew) 81 mg PO DAILY [facility] Last Admin: 12/29/24 08:02 Dose: 81 mg Documented By: LISA Atorvastatin Calcium (Atorvastatin Calcium 80 Mg Tablet) 80 mg PO BEDTIME [facility] Last Admin: 12/28/24 21:08 Dose: 80 mg Documented By: KEY Benzocaine (Throat Lozenge, Medicated Lozenge) 1 lozenge MUCOUS MEM Q2H PRN PRN Reason: Sore Throat Last Admin: 12/28/24 21:15 Dose: 1 lozenge Documented By: KEY Calcium Carbonate (Calcium Carbonate 750 Mg Tab.Chew) 750 mg PO Q4H PRN PRN Reason: Heartburn Folic Acid (Folic Acid 1 Mg Tablet) 1 mg PO DAILY [facility] Last Admin: 12/29/24 08:02 Dose: 1 mg Documented By: LISA Guaifenesin/Codeine Phosphate (Guaifen/Codeine Sf 200/20/10ml 10 Ml Liquid) 10 ml PO Q4H PRN PRN Reason: Cough Last Admin: 12/29/24 16:23 Dose: 10 ml Documented By: LISA Hydroxyzine HCl (Hydroxyzine Hcl 10 Mg Tablet) 10 mg PO Q6H PRN PRN Reason: Anxiety Lisinopril (Lisinopril 40 Mg Tablet) 40 mg PO DAILY [facility]; Protocol On Hold: 12/28/24 12:47 Last Admin: 12/27/24 07:30 Dose: Not Given Documented By: FLOR Non-Admin Reason: Physician Approved Magnesium Hydroxide (Milk Of Magnesia 30 Ml Oral.Susp) 30 ml PO DAILY PRN PRN Reason: Constipation Melatonin (Melatonin 3 Mg Tablet) 6 mg PO BEDTIME PRN PRN Reason: Insomnia Metoprolol Succinate (Metoprolol Succinate Er 25 Mg Tab.Er.24h) 25 mg PO DAILY [facility]; Protocol On Hold: 12/28/24 12:47 Last Admin: 12/28/24 08:57 Dose: 25 mg Documented By: COSTA Non-Formulary Medication (Tobramycin-Dexamethasone) 1 drop EYE-LEFT QID [facility] Non-Formulary Medication (Linaclotide [Linzess]) 145 mcg PO DAILY PRN PRN Reason: Constipation Omeprazole (Omeprazole 40 Mg Capsule.Dr) 40 mg PO DAILY [facility] Last Admin: 12/29/24 08:02 Dose: 40 mg Documented By: LISA Rivaroxaban (Rivaroxaban 15 Mg Tablet) 15 mg PO DAILY@1700 [facility] Last Admin: 12/29/24 15:56 Dose: 15 mg Documented By: LISA Sodium Chloride (0.9 % Sodium Chloride Flush 3 Ml Syringe) 3 ml IVFLUSH QSHIFT [facility] Last Admin: 12/29/24 15:56 Dose: 3 ml Documented By: LISA Labs 12/29/24 06:23 12/29/24 06:23 Labs: Laboratory Results - last 24 hr 12/29/24 06:23 MCV 80.5 MCH 24.9 L MCHC 30.9 L RDW 17.1 H Plt Count 544 H MPV 8.9 L Absolute Nucleated RBC 0.000 Nucleated RBC % (auto) 0.0 Anion Gap 12 Estim Creat Clear Calc 40.3 Estimated GFR 45 Random Glucose 103 Calcium 9.9 Assessment and Plan (1) Stroke: Status: Acute Assessment and Plan: 74yo F recently admitted for TIA 12/14 and found to have severe bilateral internal carotid stenosis (90% R, 75% L), s/p R CEA 12/20, postoperative course complicated by hematoma and discharged home 12/24 with plan to resume Xarelto + ASA 12/28; however, became unresponsive upon arrival home and returned to the hospital with concerns for encephalopathy, found to have multiple acute cortical strokes 1.Acute strokes/carotid stenosis - multiple acute cortical infarcts predominantly left parieto-occipital and left parietal region and some in the right parietal cortex; due to low-flow state vs. multiple emboli per Neurology. -resume anticoagulation/antiplatelet agent today [ASA this AM, Xarelto this evening] and monitor overnight. -PT/OT evaluation.. Acute inpatient rehab placement -continue statin 2.Post-L CEA hematoma, 4 x 4 x 8 cm - restart anticoagulation/antiplatelet therapy as above; recheck H+H in AM 3. Paroxysmal atrial fibrillation -examined and normal sinus rhythm -restart Xarelto as above 4.HTN -maintain SBP greater than 130 -adjust therapies as clinically indicated Xarelto Full code Patient requires ongoing hospital to monitor restart of Xarelto with CBC in a.m.. (2) Paroxysmal atrial fibrillation: Status: Acute (3) HTN (hypertension): Status: Acute Quality Stroke Does the patient have a stroke diagnosis?: No VTE Prior VTE?: No VTE Risk Level:: Medical - low VTE Device Contraindication: N/A - Device Ordered VTE Drug Contraindication: Treatment Not Indicated
[2024-12-30] VITALS (7 sets, daily range): BP systolic 109–160; BP diastolic 58–74; PULSE 80–90; RESP 18; TEMP 36.7–36.9; O2SAT 95–98
[2024-12-30 07:42] LABS: MANUAL DIFF FLAG NO
[2024-12-30 07:44] LABS: Hematocrit 34.8 % (37.0-47.0); Hemoglobin 10.7 g/dl (12.0-16.0); Imm Gran Abs Auto 0.06 X10*3/uL (0.00-0.03); Imm Gran Pct Auto 0.8 % (0.0-0.4); Lymphocytes Absolute Auto 2.1 X10*3/uL (1.2-4.9); Mean Corpuscular HGB Conc 30.7 g/dl (31.0-35.0); Mean Corpuscular Hemoglobin 24.9 pg (27.0-33.0); Mean Corpuscular Volume 81.1 fL (80.0-98.0); NRBC Abs Auto 0.000 X10*3/uL (0.0-0.012); NRBC Pct Auto 0.0 /100WBC (0.0-0.2); Platelet Count 517 X10*3/uL (160-400); Red Blood Count 4.29 X10*6/uL (4.20-5.50); White Blood Count 7.1 X10*3/uL (4.8-10.8)
[2024-12-30 08:13] LABS: Alanine Aminotransferase < 6 U/L (0-31); Albumin Level 3.1 g/dL (3.5-5.0); Alkaline Phosphatase 81 U/L (39-117); Anion Gap 11 (12-20); Aspartate Amino Transferase 26 U/L (5-31); Blood Urea Nitrogen 20 mg/dL (9-16); Calcium 9.5 mg/dL (8.4-10.2); Carbon Dioxide 23 mmol/L (22-29); Chloride 104 mmol/L (96-108); Creatinine Clr Calc Pharmacy 39.3; Estimated Glomerular Filt Rate 44; Potassium 4.1 mmol/L (3.3-5.1); Sodium 134 mmol/L (135-145); Total Protein 6.0 g/dL (6.5-8.0)
[2024-12-30] MEDS: 0.9 % Sodium Chloride Flush 3 ML SYRINGE IVFLUSH ×3 (08:36→20:21)
--- NOTE | 2024-12-30 10:46 | P.CNNE_ITS ---
History of Present Illness Data of Consult Service Date: 12/30/24 Primary Care Provider: Larissa Salazar MD HPI Reason for consult: Stroke 74 years old woman with bilateral carotid disease, recent right carotid endarterectomy with complications of small bilateral ischemic infarcts, was noted to have further worsening of her symptoms and scan was performed and this consultation was requested. Now she was feeling better stating that she was ?all right?. No sign of seizure. Review of Systems 2 Review of Systems: No chest pain shortness of breath palpitation or seizure. [facility] Past Medical History Medical History Polycythemia vera Postoperative nausea Osteopenia Hx of Lyme disease GERD (gastroesophageal reflux disease) Paroxysmal atrial fibrillation HTN (hypertension) Persistent atrial fibrillation Family History Family History Father Cancer Stroke Mother Diabetes Surgical History Surgical History History of total right knee replacement History of esophagogastroduodenoscopy (EGD) Hx of section Hx of hysterectomy Hx of colonoscopy (~08/13/21) Hx of appendectomy Social History Social History Household Members: None Housing: House Are you a primary personal care assistant to a significant other at home: Yes ( with Alzheimer's and Parkinson's) Do you presently have visiting nurse or other home services: Yes Comment: medicated Patient Tobacco Use Status: Never used Tobacco Smoked in Last 30 Days: No e-Cigarette/Vaping Use: Never Used Second Hand Smoke Exposure: No Use of substances other than those prescribed or required for medical reasons: No Currently Displaying Signs/Symptoms of Drug Intoxication Withdrawal: No Have you been hit, kicked, punched, or otherwise hurt by someone within the past year? If so, by whom?: No Do you feel safe in your current relationship?: No Current Relationship Is there a partner from a previous relationship who is making you feel unsafe now?: No Are you made to feel afraid or neglected: No Advance Directives: Yes Advance Directives on File: Yes Advance Directives Date on File: 03/11/21 Do you have a plan to hurt others: No Plan Recently lost weight without trying: No How much weight loss: Not applicable Eating poorly because of decreased appetite: No Nutrition screen score: 0 Nutrition Risks: No Nutritional Risk Patient : No : No Poor oral hygiene: No service: No Current occupational status: retired Current occupational exposures/hazards: No Cognitive needs: Yes (walker) Hearing needs: No Vision needs: Yes (Rx glasses) Meds Allergies Allergy/AdvReac Type Severity Reaction Status Date / Time diphenhydramine AdvReac Anxiety Verified 12/25/24 09:26 Active Medications: Current Medications Acetaminophen (Acetaminophen 325 Mg Tablet) 650 mg PO Q6H PRN PRN Reason: Pain, Mild 1-3,fever,headache Last Admin: 12/28/24 10:21 Dose: 650 mg Amlodipine Besylate (Amlodipine Besylate 10 Mg Tablet) 10 mg PO DAILY [facility]; Protocol On Hold: 12/28/24 12:48 Last Admin: 12/27/24 08:05 Dose: Not Given Aspirin (Aspirin 81 Mg Tab.Chew) 81 mg PO DAILY [facility] Last Admin: 12/30/24 08:33 Dose: 81 mg Atorvastatin Calcium (Atorvastatin Calcium 80 Mg Tablet) 80 mg PO BEDTIME [facility] Last Admin: 12/29/24 19:53 Dose: 80 mg Azithromycin (Azithromycin 500 Mg Tablet) 500 mg PO Q24H PAYAL Stop: 01/01/25 10:01 Last Admin: 12/30/24 10:20 Dose: 500 mg Benzocaine (Throat Lozenge, Medicated Lozenge) 1 lozenge MUCOUS MEM Q2H PRN PRN Reason: Sore Throat Last Admin: 12/28/24 21:15 Dose: 1 lozenge Calcium Carbonate (Calcium Carbonate 750 Mg Tab.Chew) 750 mg PO Q4H PRN PRN Reason: Heartburn Folic Acid (Folic Acid 1 Mg Tablet) 1 mg PO DAILY [facility] Last Admin: 12/30/24 08:33 Dose: 1 mg Guaifenesin/Codeine Phosphate (Guaifen/Codeine Sf 200/20/10ml 10 Ml Liquid) 10 ml PO Q4H PRN PRN Reason: Cough Last Admin: 12/29/24 21:31 Dose: 10 ml Hydroxyzine HCl (Hydroxyzine Hcl 10 Mg Tablet) 10 mg PO Q6H PRN PRN Reason: Anxiety Lisinopril (Lisinopril 40 Mg Tablet) 40 mg PO DAILY [facility]; Protocol On Hold: 12/28/24 12:47 Last Admin: 12/27/24 08:05 Dose: Not Given Magnesium Hydroxide (Milk Of Magnesia 30 Ml Oral.Susp) 30 ml PO DAILY PRN PRN Reason: Constipation Melatonin (Melatonin 3 Mg Tablet) 6 mg PO BEDTIME PRN PRN Reason: Insomnia Metoprolol Succinate (Metoprolol Succinate Er 25 Mg Tab.Er.24h) 25 mg PO DAILY [facility]; Protocol On Hold: 12/28/24 12:47 Last Admin: 12/28/24 08:57 Dose: 25 mg Non-Formulary Medication (Tobramycin-Dexamethasone) 1 drop EYE-LEFT QID [facility] Non-Formulary Medication (Linaclotide [Linzess]) 145 mcg PO DAILY PRN PRN Reason: Constipation Omeprazole (Omeprazole 40 Mg Capsule.Dr) 40 mg PO DAILY [facility] Last Admin: 12/30/24 08:33 Dose: 40 mg Rivaroxaban (Rivaroxaban 15 Mg Tablet) 15 mg PO DAILY@1700 [facility] Last Admin: 12/29/24 15:56 Dose: 15 mg Sodium Chloride (0.9 % Sodium Chloride Flush 3 Ml Syringe) 3 ml IVFLUSH [facility] Last Admin: 12/30/24 08:36 Dose: 3 ml Home Medications ?Medication ?Instructions ?Recorded ?Confirmed ?Last Taken ?Type lisinopril 40 mg tablet 40 mg PO DAILY 03/10/2112/1512/24/24 History acetaminophen 325 mg tablet 975 mg PO Q8H PRN Pain 12/25/24 12/24/24 History amlodipine 10 mg tablet 10 mg PO DAILY 10/02/2412/1512/24/24 History rivaroxaban 20 mg tablet (Xarelto) 20 mg PO DAILY@1700 12/14/24 12/25/24 12/19/24 History Held on 12/24/24. Instructions: Resume on 12/28/24. linaclotide 145 mcg capsule 145 mcg PO DAILY PRN Const ipation 12/15/24 12/25/24 12/24/24 History (Linzess) tobramycin 0.3 %-dexamethasone 0.1 1 drp ophthalmic-Le ft QID 12/15/24 12/25/2425 History % eye drops,suspension Physical Exam 2 Vital Signs: Vital Signs: Last Vital Signs Temp 98.2 F 12/30/24 07:31 Pulse 83 12/30/24 07:31 Resp 18 12/30/24 07:31 BP 125/74 12/30/24 07:31 Pulse Ox 95 12/30/24 07:31 O2 Del Method Room Air 12/30/24 07:31 BMI result Body Mass Index 23.9 Neuro: Other: She is alert and awake with normal spontaneity of speech fluency comprehension and affect. Bandage is noted on right side of the neck. There was no pronator drift. Plantars are flexor. No focal weakness is noted. Face is symmetrical. Results Labs 12/30/24 07:22 12/30/24 07:22 Labs: Short CBC 12/30/24 Range/Units 07:22 WBC 7.1 (4.8-10.8) X10*3/uL Hgb 10.7 L (12.0-16.0) g/dl Hct 34.8 L (37.0-47.0) % Plt Count 517 H (160-400) X10*3/uL BMP 12/30/24 07:22 Sodium 134 L Potassium 4.1 Chloride 104 Carbon Dioxide 23 BUN 20 H Creatinine 1.21 Calcium 9.5 Liver Function 12/30/24 Range/Units 07:22 Total Bilirubin 1.0 (0.0-1.0) mg/dL AST 26 (5-31) U/L ALT < 6 (0-31) U/L Alkaline Phosphatase 81 (39-117) U/L Albumin 3.1 L (3.5-5.0) g/dL CT HEAD WITHOUT CONTRAST (STROKE PROTOCOL) CLINICAL INFORMATION: Left-sided facial droop. MRI brain dated December 25, 2024 demonstrated watershed distribution acute stroke left greater than right MCA. COMPARISON: Correlated to MRI brain dated December 25, 2024. TECHNIQUE: Contiguous axial imaging was performed from the skull base to vertex without intravenous administration of contrast. This CT examination was performed using dose optimization techniques as appropriate, variously including the following: *Automated exposure control *Adjustment of mA and/or kV according to patient size (this includes techniques or standardized protocols for targeted exams where dose is matched to indication/reason for exam; i.e. extremities or head) *Use of iterative reconstruction technique DLP: 741 mGy-cm FINDINGS: No acute intracranial hemorrhage, mass effect, midline shift, hydrocephalus or herniation. Stable appearance of the multifocal patchy and confluent deep periventricular white matter hypodensities. CT/CT angio head neck STROKE IMPRESSION: No hemorrhagic components in the watershed distribution ischemia/stroke. EXAMINATION: CTA NECK WITH CONTRAST (STROKE) CTA BRAIN WITH CONTRAST (STROKE) CLINICAL INFORMATION: Acute stroke with new left-sided facial droop. COMPARISON: December 25, 2024. TECHNIQUE: CTA of the head and neck was performed in the axial plane from the mediastinum to the skull vertex using 70 mL Omnipaque 350 intravenous contrast. Additional reformatted multiplanar images including maximum intensity projection MIP images are generated on the CT workstation. This CT examination was performed using dose optimization techniques as appropriate, variously including the following: *Automated exposure control *Adjustment of mA and/or kV according to patient size (this includes techniques or standardized protocols for targeted exams where dose is matched to indication/reason for exam; i.e. extremities or head) *Use of iterative reconstruction technique DLP: 656 mGy-cm No sagittal or coronal reformatted images obtained from the source images. Only MIP sequences are provided. FINDINGS: The degree of stenosis determined by criteria similar to NASCET. Chest CTA: No aneurysm or dissection, thoracic aorta. Calcified plaques. Neck CTA: 4.7 x 3.8 x 7.0 cm heterogeneous mixed layering hematoma without IV contrast extravasation centered in the right carotid compartment from the hyoid bone to the thyroid gland levels in the craniocaudal dimension and laterally extending into the platysma. Right CCA: Mixed plaques. Normal patency. No focal stenosis. No gross intimal flap. No IV contrast extravasation. Right ICA: Irregularities in the proximal segment with intraluminal abnormality. Normal patency. No focal stenosis. No IV contrast dilatation. Left CCA: Normal patency. No focal stenosis. No intimal flap. Tortuosity. Retropharyngeal trajectory. Left ICA: Mixed plaques in the carotid bulb and proximal ICA representing 90% stenosis. Intraluminal abnormality is in the proximal segment. V1/V2 segments: Tortuosity. Normal patency. No focal stenosis. No intimal flap. Left vertebral artery is dominant. Brain CTA: Anterior cerebral circulation: ICAs: Calcified plaques in the cavernous supracavernous segments. Normal patency. No focal stenosis or abrupt cut off. MCA's: No focal stenosis or abrupt cut off in the M1 M2 segments, left MCA. There is asymmetric and decreased IV contrast enhancement of the opercular branches and the left MCA. Right MCA demonstrates normal patency without focal stenosis or abrupt cut off. ACAs: Normal patency without focal stenosis or abrupt cut off. Anterior communicating artery is patent. Ophthalmic arteries are patent. Posterior communicating arteries are patent. Posterior cerebral circulation: V3/V4 segments are patent without focal stenosis or intimal flap. Basilar artery is patent without focal stenosis or intimal flap. conveyor loader: Normal patency without focal stenosis or abrupt cut off. Superior cerebellar arteries are patent. Posterior inferior cerebellar arteries are patent. Anterior inferior cerebral arteries are patent. IMPRESSION: 4.7 x 3.8 x 7.0 cm acute subacute hematoma/hemorrhage, right carotid compartment without active IV contrast extravasation. Decreased IV contrast enhancement of the opercular branches left MCA without a focal embolus. 90% stenosis secondary to mixed plaque in the left ICA with the questionable intraluminal dislodged components in the proximal segment. This critical result was discussed with requesting physician Dr. Grayson Allred at 1:24 PM hours on December 28, 2024 [email or web address] connect.. It was ascertained that the content and urgency of the report was understood at the time of direct communication. Assessment and Plan (1) Stroke: Qualifiers: CVA mechanism: occlusion Laterality of affected vessel: bilateral P recerebral and cerebral artery: carotid artery Qualified Code(s): I63.233 - Cerebral infarction due to unspecified occlusion or stenosis of bilateral carotid arteries Status: Acute 74 years old woman status post right carotid endarterectomy and severe left internal carotid artery stenosis. She had complications of surgical hematoma and few small ischemic lesions in both sides of brain. She was noted to have more symptoms and a CTA was done. I also noted that her blood pressure significantly dropped. Now she was feeling better with no definitive new findings. Imaging revealed severe left internal carotid artery stenosis. It is critical that her blood pressure does not drop. I would recommend discontinuing amlodipine. In the meantime she should be treated with anti- platelet agent such as baby aspirin daily and statin. She may also require left carotid endarterectomy but that should be considered after at least few weeks. (2) Carotid stenosis, bilateral: Status: Acute Procedures Date of Service Date of Service: 12/30/24
--- NOTE | 2024-12-30 11:40 | PC.NURSE ---
1140am patient BP 110/68 MD aware, no new orders .
--- NOTE | 2024-12-30 13:29 | HO.PM.IMPN ---
Subjective Subjective Date of Service: 12/30/24 Interval History: No further bleeding from op site. Hemoglobin stable Review of Systems Denies chest pain Denies shortness of breath Denies nausea vomiting diarrhea Denies fever chills Physical Exam Vital Signs: Vital Signs: Last Vital Signs Temp 98.4 F 12/30/24 11:33 Pulse 84 12/30/24 11:33 Resp 18 12/30/24 11:33 BP 110/68 12/30/24 11:33 Pulse Ox 97 12/30/24 11:33 O2 Del Method Room Air 12/30/24 11:33 BMI result Body Mass Index 23.9 Const: Other: Awake alert oriented x3 in no acute distress Neck: Other: Right sided CEA site dressing clean dry and intact without further bleeding Resp: Other: Clear to auscultation bilaterally no rales rhonchi or wheezes Cardio: Other: No S4; positive S1-S2; no S3 murmurs rubs or gallops GI: Other: Soft nontender nondistended normoactive bowel sounds Neuro: Other: Cranial nerves 2-12 grossly intact as tested. Motor is 5/5 all extremities sensation is intact. Cognition appropriate Extrem: Other: No edema bilaterally Objective Data Active Medications Acetaminophen (Acetaminophen 325 Mg Tablet) 650 mg PO Q6H PRN PRN Reason: Pain, Mild 1-3,fever,headache Last Admin: 12/28/24 10:21 Dose: 650 mg Documented By: COSTA Amlodipine Besylate (Amlodipine Besylate 10 Mg Tablet) 10 mg PO DAILY [facility]; Protocol On Hold: 12/28/24 12:48 Last Admin: 12/27/24 07:29 Dose: Not Given Documented By: FLOR Non-Admin Reason: Physician Approved Aspirin (Aspirin 81 Mg Tab.Chew) 81 mg PO DAILY [facility] Last Admin: 12/30/24 08:33 Dose: 81 mg Documented By: HEMANTH Atorvastatin Calcium (Atorvastatin Calcium 80 Mg Tablet) 80 mg PO BEDTIME [facility] Last Admin: 12/29/24 19:53 Dose: 80 mg Documented By: KEY Azithromycin (Azithromycin 500 Mg Tablet) 500 mg PO Q24H [facility] Stop: 01/01/25 10:01 Last Admin: 12/30/24 10:20 Dose: 500 mg Documented By: HEMANTH Benzocaine (Throat Lozenge, Medicated Lozenge) 1 lozenge MUCOUS MEM Q2H PRN PRN Reason: Sore Throat Last Admin: 12/28/24 21:15 Dose: 1 lozenge Documented By: KEY Calcium Carbonate (Calcium Carbonate 750 Mg Tab.Chew) 750 mg PO Q4H PRN PRN Reason: Heartburn Folic Acid (Folic Acid 1 Mg Tablet) 1 mg PO DAILY [facility] Last Admin: 12/30/24 08:33 Dose: 1 mg Documented By: HEMANTH Guaifenesin/Codeine Phosphate (Guaifen/Codeine Sf 200/20/10ml 10 Ml Liquid) 10 ml PO Q4H PRN PRN Reason: Cough Last Admin: 12/29/24 21:31 Dose: 10 ml Documented By: KEY Hydroxyzine HCl (Hydroxyzine Hcl 10 Mg Tablet) 10 mg PO Q6H PRN PRN Reason: Anxiety Lisinopril (Lisinopril 40 Mg Tablet) 40 mg PO DAILY [facility]; Protocol On Hold: 12/28/24 12:47 Last Admin: 12/27/24 07:30 Dose: Not Given Documented By: FLOR Non-Admin Reason: Physician Approved Magnesium Hydroxide (Milk Of Magnesia 30 Ml Oral.Susp) 30 ml PO DAILY PRN PRN Reason: Constipation Melatonin (Melatonin 3 Mg Tablet) 6 mg PO BEDTIME PRN PRN Reason: Insomnia Metoprolol Succinate (Metoprolol Succinate Er 25 Mg Tab.Er.24h) 25 mg PO DAILY [facility]; Protocol On Hold: 12/28/24 12:47 Last Admin: 12/28/24 08:57 Dose: 25 mg Documented By: COSTA Omeprazole (Omeprazole 40 Mg Capsule.Dr) 40 mg PO DAILY [facility] Last Admin: 12/30/24 08:33 Dose: 40 mg Documented By: HEMANTH Rivaroxaban (Rivaroxaban 15 Mg Tablet) 15 mg PO DAILY@1700 [facility] Last Admin: 12/29/24 15:56 Dose: 15 mg Documented By: LISA Sodium Chloride (0.9 % Sodium Chloride Flush 3 Ml Syringe) 3 ml IVFLUSH QSHIFT [facility] Last Admin: 12/30/24 08:36 Dose: 3 ml Documented By: HEMANTH Labs 12/30/24 07:22 12/30/24 07:22 Labs: Laboratory Results - last 24 hr 12/30/24 07:22 MCV 81.1 MCH 24.9 L MCHC 30.7 L RDW 17.2 H Plt Count 517 H MPV 8.8 L Immature Gran % (Auto) 0.8 H Neut % (Auto) 52.9 Lymph % (Auto) 29.6 Sherman % (Auto) 13.7 H Eos % (Auto) 2.0 Baso % (Auto) 1.0 Lymph # (Auto) 2.1 Sherman # (Auto) 1.0 Eos # (Auto) 0.1 Baso # (Auto) 0.1 Abs Immat Gran (auto) 0.06 H Absolute Neuts (auto) 3.7 Absolute Nucleated RBC 0.000 Nucleated RBC % (auto) 0.0 Anion Gap 11 L Estim Creat Clear Calc 39.3 Estimated GFR 44 Fasting Glucose 101 H Calcium 9.5 Total Bilirubin 1.0 AST 26 ALT < 6 Alkaline Phosphatase 81 Total Protein 6.0 L Albumin 3.1 L Assessment and Plan (1) Stroke: Status: Acute Assessment and Plan: 74yo F recently admitted for TIA 12/14 and found to have severe bilateral internal carotid stenosis (90% R, 75% L), s/p R CEA 12/20, postoperative course complicated by hematoma and discharged home 12/24 with plan to resume Xarelto + ASA 12/28; however, became unresponsive upon arrival home and returned to the hospital with concerns for encephalopathy, found to have multiple acute cortical strokes 1.Acute strokes/carotid stenosis - multiple acute cortical infarcts predominantly left parieto-occipital and left parietal region and some in the right parietal cortex; due to low-flow state vs. multiple emboli per Neurology. -resume anticoagulation/antiplatelet agent today [ASA this AM, Xarelto this evening] and monitor overnight. -PT/OT evaluation recommends acute inpatient rehab -continue statin 2.Post-L CEA hematoma, 4 x 4 x 8 cm - restart anticoagulation/antiplatelet therapy as above; recheck H+H in AM 3. Paroxysmal atrial fibrillation -examined and normal sinus rhythm -restart Xarelto as above 4.HTN -maintain SBP greater than 130 -adjust therapies as clinically indicated Xarelto Full code Patient requires ongoing hospital to monitor restart of Xarelto with CBC in a.m.. (2) Carotid stenosis, right: Status: Acute (3) Paroxysmal atrial fibrillation: Status: Acute Quality Stroke Does the patient have a stroke diagnosis?: No VTE Prior VTE?: No VTE Risk Level:: Medical - low VTE Device Contraindication: N/A - Device Ordered VTE Drug Contraindication: Treatment Not Indicated
[2024-12-30] MEDS: Rivaroxaban 15 MG TABLET PO (16:38)
[2024-12-30] MEDS: Albumin Human 25 % 100 ML IV ×2 (16:38→22:36)
[2024-12-31] VITALS (7 sets, daily range): BP systolic 120–151; BP diastolic 58–82; PULSE 71–88; RESP 16–18; TEMP 36.3–36.9; O2SAT 97–100
--- NOTE | 2024-12-31 06:46 | PC.NURSE ---
06:45 Previous IV access found to be leaking during infusion of fluid bolus. IV line discontinued. Pt refusing multiple attempts to establish new IV access. Education provided, risks of not having IV access at this time explained. Pt verbalizes understanding of risks. Provider made aware. Continuos monitoring and education ongoing.
[2024-12-31 07:37] LABS: MANUAL DIFF FLAG NO
[2024-12-31 07:46] LABS: Hematocrit 33.6 % (37.0-47.0); Hemoglobin 10.0 g/dl (12.0-16.0); Imm Gran Abs Auto 0.07 X10*3/uL (0.00-0.03); Imm Gran Pct Auto 1.0 % (0.0-0.4); Lymphocytes Absolute Auto 2.0 X10*3/uL (1.2-4.9); Mean Corpuscular HGB Conc 29.8 g/dl (31.0-35.0); Mean Corpuscular Hemoglobin 24.9 pg (27.0-33.0); Mean Corpuscular Volume 83.6 fL (80.0-98.0); NRBC Abs Auto 0.000 X10*3/uL (0.0-0.012); NRBC Pct Auto 0.0 /100WBC (0.0-0.2); Platelet Count 573 X10*3/uL (160-400); Red Blood Count 4.02 X10*6/uL (4.20-5.50); White Blood Count 6.9 X10*3/uL (4.8-10.8)
[2024-12-31 07:58] LABS: Alanine Aminotransferase < 6 U/L (0-31); Albumin Level 3.8 g/dL (3.5-5.0); Alkaline Phosphatase 75 U/L (39-117); Anion Gap 12 (12-20); Aspartate Amino Transferase 27 U/L (5-31); Blood Urea Nitrogen 24 mg/dL (9-16); Calcium 9.6 mg/dL (8.4-10.2); Carbon Dioxide 22 mmol/L (22-29); Chloride 105 mmol/L (96-108); Creatinine Clr Calc Pharmacy 42.8; Estimated Glomerular Filt Rate 48; Potassium 3.8 mmol/L (3.3-5.1); Sodium 135 mmol/L (135-145); Total Protein 6.3 g/dL (6.5-8.0)
[2024-12-31] MEDS: Rivaroxaban 15 MG TABLET PO (16:45)
--- NOTE | 2024-12-31 17:20 | HO.PM.IMPN ---
Subjective Subjective Date of Service: 12/31/24 Interval History: No acute issues overnight. No further bleeding from right carotid surgery site Review of Systems Denies chest pain Denies shortness of breath Denies nausea vomiting diarrhea Denies fever chills Physical Exam Vital Signs: Vital Signs: Last Vital Signs Temp 98.4 F 12/31/24 15:14 Pulse 88 12/31/24 15:14 Resp 16 12/31/24 15:14 BP 143/75 H 12/31/24 15:14 Pulse Ox 99 12/31/24 15:14 O2 Del Method Room Air 12/31/24 15:14 BMI result Body Mass Index 23.9 Const: Other: Awake alert oriented x3 in no acute distress Neck: Other: Right sided CEA site dressing clean dry and intact without further bleeding Resp: Other: Clear to auscultation bilaterally no rales rhonchi or wheezes Cardio: Other: No S4; positive S1-S2; no S3 murmurs rubs or gallops GI: Other: Soft nontender nondistended normoactive bowel sounds Neuro: Other: Cranial nerves 2-12 grossly intact as tested. Motor is 5/5 all extremities sensation is intact. Cognition appropriate Extrem: Other: No edema bilaterally Objective Data Active Medications Acetaminophen (Acetaminophen 325 Mg Tablet) 650 mg PO Q6H PRN PRN Reason: Pain, Mild 1-3,fever,headache Last Admin: 12/28/24 10:21 Dose: 650 mg Documented By: COSTA Aspirin (Aspirin 81 Mg Tab.Chew) 81 mg PO DAILY [facility] Last Admin: 12/31/24 08:03 Dose: 81 mg Documented By: VINAY Atorvastatin Calcium (Atorvastatin Calcium 80 Mg Tablet) 80 mg PO BEDTIME [facility] Last Admin: 12/30/24 20:20 Dose: 80 mg Documented By: CORRINA Azithromycin (Azithromycin 500 Mg Tablet) 500 mg PO Q24H [facility] Stop: 01/01/25 10:01 Last Admin: 12/31/24 10:30 Dose: 500 mg Documented By: VINAY Benzocaine (Throat Lozenge, Medicated Lozenge) 1 lozenge MUCOUS MEM Q2H PRN PRN Reason: Sore Throat Last Admin: 12/28/24 21:15 Dose: 1 lozenge Documented By: KEY Calcium Carbonate (Calcium Carbonate 750 Mg Tab.Chew) 750 mg PO Q4H PRN PRN Reason: Heartburn Folic Acid (Folic Acid 1 Mg Tablet) 1 mg PO DAILY [facility] Last Admin: 12/31/24 08:03 Dose: 1 mg Documented By: VINAY Guaifenesin/Codeine Phosphate (Guaifen/Codeine Sf 200/20/10ml 10 Ml Liquid) 10 ml PO Q4H PRN PRN Reason: Cough Last Admin: 12/29/24 21:31 Dose: 10 ml Documented By: KEY Hydroxyzine HCl (Hydroxyzine Hcl 10 Mg Tablet) 10 mg PO Q6H PRN PRN Reason: Anxiety Lisinopril (Lisinopril 40 Mg Tablet) 40 mg PO DAILY [facility]; Protocol On Hold: 12/28/24 12:47 Last Admin: 12/27/24 07:30 Dose: Not Given Documented By: FLOR Non-Admin Reason: Physician Approved Magnesium Hydroxide (Milk Of Magnesia 30 Ml Oral.Susp) 30 ml PO DAILY PRN PRN Reason: Constipation Melatonin (Melatonin 3 Mg Tablet) 6 mg PO BEDTIME PRN PRN Reason: Insomnia Metoprolol Succinate (Metoprolol Succinate Er 25 Mg Tab.Er.24h) 25 mg PO DAILY [facility]; Protocol On Hold: 12/28/24 12:47 Last Admin: 12/28/24 08:57 Dose: 25 mg Documented By: COSTA Omeprazole (Omeprazole 40 Mg Capsule.Dr) 40 mg PO DAILY [facility] Last Admin: 12/31/24 08:03 Dose: 40 mg Documented By: VINAY Rivaroxaban (Rivaroxaban 15 Mg Tablet) 15 mg PO DAILY@1700 [facility] Last Admin: 12/31/24 16:45 Dose: 15 mg Documented By: VINAY Sodium Chloride (0.9 % Sodium Chloride Flush 3 Ml Syringe) 3 ml IVFLUSH QSHIFT [facility] Last Admin: 12/31/24 16:28 Dose: Not Given Documented By: VINAY Non-Admin Reason: No Access Labs 12/31/24 06:26 12/31/24 06:26 Labs: Laboratory Results - last 24 hr 12/31/24 06:26 MCV 83.6 MCH 24.9 L MCHC 29.8 L RDW 17.2 H Plt Count 573 H MPV 9.2 L Immature Gran % (Auto) 1.0 H Neut % (Auto) 55.0 Lymph % (Auto) 29.1 Dukes % (Auto) 11.6 H Eos % (Auto) 2.6 Baso % (Auto) 0.7 Lymph # (Auto) 2.0 Dukes # (Auto) 0.8 Eos # (Auto) 0.2 Baso # (Auto) 0.1 Abs Immat Gran (auto) 0.07 H Absolute Neuts (auto) 3.8 Absolute Nucleated RBC 0.000 Nucleated RBC % (auto) 0.0 Anion Gap 12 Estim Creat Clear Calc 42.8 Estimated GFR 48 Fasting Glucose 99 Calcium 9.6 Total Bilirubin 1.1 H AST 27 ALT < 6 Alkaline Phosphatase 75 Total Protein 6.3 L Albumin 3.8 Assessment and Plan (1) Stroke: Status: Acute Assessment and Plan: 74yo F recently admitted for TIA 12/14 and found to have severe bilateral internal carotid stenosis (90% R, 75% L), s/p R CEA 12/20, postoperative course complicated by hematoma and discharged home 12/24 with plan to resume Xarelto + ASA 12/28; however, became unresponsive upon arrival home and returned to the hospital with concerns for encephalopathy, found to have multiple acute cortical strokes 1.Acute strokes/carotid stenosis - multiple acute cortical infarcts predominantly left parieto-occipital and left parietal region and some in the right parietal cortex; due to low-flow state vs. multiple emboli per Neurology. -no further bleeding over weekend; encompass requesting CTA neck to verify -follow up results in a.m. 2.Post-L CEA hematoma, 4 x 4 x 8 cm - restart anticoagulation/antiplatelet therapy as above; recheck H+H in AM 3. Paroxysmal atrial fibrillation -examined and normal sinus rhythm -restart Xarelto as above 4.HTN -maintain SBP greater than 130 -adjust therapies as clinically indicated Xarelto Full code Patient requires ongoing hospital to monitor restart of Xarelto with CBC in a.m.. (2) Carotid stenosis, right: Status: Acute (3) Paroxysmal atrial fibrillation: Status: Acute (4) HTN (hypertension): Status: Acute Quality Stroke Does the patient have a stroke diagnosis?: No VTE Prior VTE?: No VTE Risk Level:: Medical - low VTE Device Contraindication: N/A - Device Ordered VTE Drug Contraindication: Treatment Not Indicated
[2025-01-01] MEDS: 0.9 % Sodium Chloride Flush 3 ML SYRINGE IVFLUSH ×2 (01:30→08:21)
[2025-01-01 03:14] VITALS: BP 116/68; PULSE 81; RESP 16; TEMP 36.8; O2SAT 95
[2025-01-01 07:27] VITALS: BP 126/70; PULSE 63; RESP 18; TEMP 36.7; O2SAT 99
[2025-01-01 11:34] VITALS: BP 123/77; PULSE 88; RESP 18; TEMP 36.9; O2SAT 100
--- NOTE | 2025-01-01 14:28 | MHC.CM.PN ---
Per MD, Patient is medically cleared for dc to Acute Rehab today. Patient will dc to her first choice facility/[facility] today at 4:30 PM, via [facility]. CM spoke with Son/Jacques, at Patient's request and informed him of the dc plan.
--- NOTE | 2025-01-01 14:34 | PM.DS ---
DS: Providers Provider Date of Service: 01/01/25 Date of admission: 12/26/24 12:07 Date of discharge: 01/01/25 Primary care physician: Larissa Salazar MD Consults: 12/25/24 15:10 Consult to Neurology Routine Consulting Provider: Mike Ireland [facility] Reason for consultation: encephalopathy Has provider been notified: No 12/25/24 16:08 Consult to Vascular Surgery Routine Consulting Provider: [facility] [place] [facility] Reason for consultation: right carotid endarc Has provider been notified: No 12/28/24 12:45 Consult to Neurology Routine Consulting Provider: Neurology Josué abad [facility] Reason for consultation: ?another CVA L facial droop + pronator drift + wordfinding difficulty DS: Diagnosis Discharge Diagnosis (1) Stroke: Status: Acute (2) Carotid stenosis, right: Status: Inactive (3) Paroxysmal atrial fibrillation: Status: Acute (4) HTN (hypertension): Status: Acute DS: Summary Hospital Course Hospital Course: 74-year-old female with past medical history significant for bilateral carotid artery stenosis, CVA, myeloproliferative neoplasm, polycythemia vera, AFib, HTN who was recently discharged on 12/24 after right carotid endarterectomy on 12/20. Patient's course complicated by postoperative bleeding requiring aspirin and Xarelto to be placed on hold. On discharge patient was alert and oriented x3, however after she arrived home with encephalopathy, stating that she was not feeling well, however while in the bathroom became unresponsive and was brought to the ED. Labs with no leukocytosis, hemoglobin of 11.2, sodium 134, creatinine 1.[address] done that showed white vascular insult territory, with neck CTA showing 4 x 4 x 8 cm heterogeneous mixed low and high density right carotid compartment abnormality extending laterally with mass effect upon adjacent structures, with no major cerebral artery occlusion or embolus Hospital Course Patient was admitted to telemetry where monitor failed to demonstrate any acute dysrhythmias. She was seen by Neurology who reviewed imaging and felt that there were multiple cortical ischemic lesions bilaterally in the brain. Thought to be related to a low flow state. Amlodipine was DC and her pressure targeted at 01:30 systolic or greater. She continued to improve and the majority of her symptoms resolved. On 12/29 24 Xarelto was resumed and she was monitored 12/30 through 12/31. No further evidence of any bleeding. Prior to discharge, repeat CTA of neck was done at the request of receiving facility. This was read as a similar size right carotid space hematoma without active arterial hemorrhage. Similar appearance of filling defect in the right carotid artery question unstable plaque versus focal dissection. This was reviewed with Neurology and did not feel that this should NPO her discharge. At this time she is medically acceptable for discharge to acute rehab and will follow up with vascular surgery upon discharge Time Attestation Discharge Coordination Time (in mins): 35 Quality: Safe Use of Opioids Does Pt have an Active Cancer Diagnosis on the Problem List?: No Quality: Stroke Does the patient have a stroke diagnosis?: Yes Reason for No Anti-thrombotic at DC: N/A - Med Ordered Reason for No Anticoagulant at DC: N/A - Med Ordered Reason Not Initiating IV-Tpa: Drug treatment not indicated Reason for No Anti-thrombotic by Day Two: N/A - Med Ordered Reason for No Statin at DC: N/A - Med Ordered Physical Exam Vital Signs: Vital Signs: Last Vital Signs Temp 98.4 F 01/01/25 11:34 Pulse 88 01/01/25 11:34 Resp 18 01/01/25 11:34 BP 123/77 01/01/25 11:34 Pulse Ox 100 01/01/25 11:34 O2 Del Method Room Air 01/01/25 11:34 BMI result Body Mass Index 23.9 Const: Other: Awake alert oriented x3 in no acute distress Neck: Other: Right sided CEA site dressing clean dry and intact without further bleeding Resp: Other: Clear to auscultation bilaterally no rales rhonchi or wheezes Cardio: Other: No S4; positive S1-S2; no S3 murmurs rubs or gallops GI: Other: Soft nontender nondistended normoactive bowel sounds Neuro: Other: Cranial nerves 2-12 grossly intact as tested. Motor is 5/5 all extremities sensation is intact. Cognition appropriate Extrem: Other: No edema bilaterally DS: Data Data Completed and Pending Completed studies during hospitalization [Text1]: Procedures Excision of Duodenum, Via Natural or Artificial Opening Endoscopic, Diagnostic (05/09/24) Excision of Esophagogastric Junction, Via Natural or Artificial Opening Endoscopic, Diagnostic (05/09/24) Excision of Stomach, Pylorus, Via Natural or Artificial Opening Endoscopic, Diagnostic (05/09/24) Discharge Plan Discharge Anticipated Discharge Date/Time: 01/01/25 14:26 Patient Disposition: Xfer Inpatient Rehab Fac Discharge Diagnosis: Acute cortical strokes Referrals: [facility] [Outside] - 1 Week Larissa Salazar MD [Primary Care Provider, Endocrinology] - 1 Week Discharge Medications: Continued metoprolol succinate 25 mg tablet extended release 24 hr 25 mg PO DAILY Qty: 90 3RF omeprazole 40 mg capsule,delayed release(DR/EC) 40 mg PO DAILY Qty: 90 0RF temazepam 15 mg capsule 15 mg PO BEDTIME PRN (Reason: Sleep) Qty: 30 1RF acetaminophen 325 mg tablet 975 mg PO Q8H PRN (Reason: Pain) folic acid 1 mg Tablet 1 mg PO DAILY Qty: 90 4RF Xarelto 20 mg tablet 20 mg PO DAILY@1700 Rx Instructions: resume on 12/28/2024 Linzess 145 mcg capsule 145 mcg PO DAILY PRN (Reason: Constipation) tobramycin-dexamethasone 0.3-0.1 % drops,suspension 1 drp ophthalmic-Left QID atorvastatin 80 mg Tablet 80 mg PO BEDTIME Qty: 30 0RF aspirin 81 mg capsule 81 mg PO DAILY Qty: 60 0RF lisinopril 40 mg tablet 40 mg PO DAILY Discontinued amlodipine 10 mg tablet 10 mg PO DAILY Discharge Orders: Discharge Order (Routine); Ordered 01/01/25 Ordered By: Saad Amanda Diet: Advance to usual diet Activity on Discharge: As tolerated Stand Alone Forms: Patient Portal Discharge page Print Language: Citizen Of [place] Care Plan Goals: Continue all medicines as outlined on transfer sheet Health Concerns: Continue to monitor right neck dressing change PRN Plan of Treatment: As per receiving facility. Follow up with vascular surgery upon discharge Assessment: See discharge summary
[2025-01-01 15:04] VITALS: BP 125/66; PULSE 73; RESP 18; TEMP 36.4; O2SAT 99
[2025-01-01] MEDS: Rivaroxaban 15 MG TABLET PO (16:10)
== END 2025-01-01 17:37 | DRG 919 ==
LOC: HO.ED 11:04 → HO.EDOVER 12:30 → HO.S3 15:33 → HO.IMC 16:42
PROVIDERS: Family Medicine; Admitting Provider Student in an Organized Health Care Education/Training Program; Emergency Provider Emergency Medicine; PCP Internal Medicine; Visit Provider Hospitalist
DX: I97.638 Postprocedural hematoma of a circulatory system organ or structure following other circulatory system procedure (principal); I63.9 Cerebral infarction, unspecified; G93.49 Other encephalopathy; I65.22 Occlusion and stenosis of left carotid artery; R29.702 NIHSS score 2; I12.9 Hypertensive chronic kidney disease with stage 1 through stage 4 chronic kidney disease, or unspecified chronic kidney disease; N18.30 Chronic kidney disease, stage 3 unspecified; D45 Polycythemia vera; Y83.8 Other surgical procedures as the cause of abnormal reaction of the patient, or of later complication, without mention of misadventure at the time of the procedure; Z79.01 Long term (current) use of anticoagulants; Z79.82 Long term (current) use of aspirin; Z79.899 Other long term (current) drug therapy
CPT/HCPCS: 36415; 70450; 70496; 70498; 70551; 80048; 80053; 80076; 82947; 83690; 84484; 85014; 85018; 85025; 85027; 85610; 92507; 92610; 93005; 97112; 97163; 97167; 97530; 99222; 99285; J7120; P9047; Q9967

== ENCOUNTER → 2024-12-25 09:16 | Outpatient (BNV) | payer MEDICARE, SELFPAY | PROVIDERS: Emergency Provider Emergency Medicine; PCP Internal Medicine; Visit Provider Radiology Diagnostic Radiology | DX: G93.89 Other specified disorders of brain (principal); I67.82 Cerebral ischemia; R90.82 White matter disease, unspecified | CPT/HCPCS: 70496; 70498; 70551 ==

== ENCOUNTER → 2024-12-25 10:21 | Outpatient (BNV) | payer MEDICARE, SELFPAY | PROVIDERS: Admitting Provider Student in an Organized Health Care Education/Training Program; Emergency Provider Emergency Medicine; PCP Internal Medicine; Visit Provider Internal Medicine Cardiovascular Disease | DX: I49.1 Atrial premature depolarization (principal) | CPT/HCPCS: 93010 ==

== ENCOUNTER → 2024-12-25 12:27 | Outpatient (BNV) | payer MEDICARE, SELFPAY | PROVIDERS: Admitting Provider Student in an Organized Health Care Education/Training Program; Emergency Provider Emergency Medicine; PCP Internal Medicine; Visit Provider Student in an Organized Health Care Education/Training Program | DX: I63.233 Cerebral infarction due to unspecified occlusion or stenosis of bilateral carotid arteries (principal) | CPT/HCPCS: 99232 ==

== ENCOUNTER 2024-12-26 12:07 | Outpatient (BNV) | payer MEDICARE, SELFPAY | END 2024-12-31 18:02 | PROVIDERS: Admitting Provider Student in an Organized Health Care Education/Training Program; Emergency Provider Emergency Medicine; PCP Internal Medicine; Visit Provider Student in an Organized Health Care Education/Training Program | DX: S15.001A Unspecified injury of right carotid artery, initial encounter (principal) | CPT/HCPCS: 70498 ==

== ENCOUNTER 2024-12-26 12:07 | Outpatient (BNV) | payer MEDICARE, SELFPAY | END 2024-12-28 12:44 | PROVIDERS: Admitting Provider Student in an Organized Health Care Education/Training Program; Emergency Provider Emergency Medicine; PCP Internal Medicine; Visit Provider Radiology Diagnostic Radiology | DX: I62.01 Nontraumatic acute subdural hemorrhage (principal); I65.22 Occlusion and stenosis of left carotid artery; R29.810 Facial weakness | CPT/HCPCS: 70450; 70496; 70498 ==

== ENCOUNTER → 2024-12-26 12:07 | Outpatient (BNV) | payer MEDICARE, SELFPAY | PROVIDERS: Admitting Provider Student in an Organized Health Care Education/Training Program; Emergency Provider Emergency Medicine; PCP Internal Medicine; Visit Provider Psychiatry & Neurology Neurology | DX: I63.233 Cerebral infarction due to unspecified occlusion or stenosis of bilateral carotid arteries (principal); I65.23 Occlusion and stenosis of bilateral carotid arteries | CPT/HCPCS: 99232 ==

== ENCOUNTER → 2024-12-26 12:07 | Outpatient (BNV) | payer MEDICARE, SELFPAY | PROVIDERS: Admitting Provider Student in an Organized Health Care Education/Training Program; Emergency Provider Emergency Medicine; PCP Internal Medicine; Visit Provider Surgery Vascular Surgery | DX: I65.23 Occlusion and stenosis of bilateral carotid arteries (principal) | CPT/HCPCS: 99024; 99222 ==

== ENCOUNTER 2025-01-15 11:17 | Outpatient (AMB) | payer MEDICARE, SELFPAY ==
--- NOTE | 2025-01-15 11:19 | MHC.OFFVIS ---
Intake Visit Reasons: 2 week follow up CEA Intake Note: 2 week follow up Right CEA 12/20/24, right incision hematoma Financial Services Education Consultant Required: No Accompanied by: Son Allergies diphenhydramine Adverse Reaction (Verified 01/15/25 11:28) Anxiety HPI HPI 2 week follow up CEA: Details: The patient is a 74 year old individual presenting for a follow-up visit for status post right carotid endarterectomy. The patient has a history of bilateral carotid artery stenosis, with a CT angiogram on 12/14/2024 revealing near total occlusion of the right carotid artery and 75% stenosis of the left carotid artery. The patient was also informed of having had multiple small strokes. Due to the high risk of stroke from the near-occlusive right-sided stenosis, the patient was kept on blood thinners leading up to the surgery. The patient underwent a right carotid endarterectomy on 12/20/2024. Postoperatively, the patient developed a significant neck hematoma at the surgical site, which the patient describes as a lump that has persisted. In the preoperative period, the patient experienced neurological deficits, including visual and spatial issues, handwriting difficulties, and an inability to hold utensils or a cup. The patient is currently receiving occupational and physical therapy and has shown daily improvement, now being able to get dressed independently and ambulate cautiously to prevent falls. Blood pressure was noted to be labile in the hospital post-surgery. [facility] Medical History (Updated 01/15/25 @ 12:13 by Florin Swartz MD) Carotid disease, bilateral FH: carotid endarterectomy (12/20/24) Fall Postop carotid endarterectomy surveillance, encounter for Carotid stenosis, right Acute coccygeal pain Acute chest wall pain Carotid stenosis, bilateral Stroke Adult failure to thrive Polycythemia vera Postoperative nausea Osteopenia Hx of Lyme disease GERD (gastroesophageal reflux disease) Paroxysmal atrial fibrillation HTN (hypertension) Persistent atrial fibrillation Surgical History History of total right knee replacement History of esophagogastroduodenoscopy (EGD) Hx of section Hx of hysterectomy Hx of colonoscopy (~08/13/21) Hx of appendectomy Family History Father Cancer Stroke Mother Diabetes Social History Household Members: None Housing: House Are you a primary 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 intensive care 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 nurse to a significant other at home: Yes ( with Alzheimer's and Parkinson's) Do you presently have visiting nurse or other home services: Yes Comment: medicated Patient Tobacco Use Status: Never used Tobacco e-Cigarette/Vaping Use: Never Used Second Hand Smoke Exposure: No Advance Directives Date on File: 03/11/21 service: No Current occupational status: retired Current occupational exposures/hazards: No Cognitive needs: Yes (walker) Hearing needs: No Vision needs: Yes (Rx glasses) Review of Systems Const All systems reviewed & are unremarkable except as noted in HPI and below Reports no additional complaints ENT Reports Normal hearing present Card Denies chest pain, Denies chest pain at rest, Denies chest pain with activity and Denies pedal edema Resp Denies cough GI Denies abdominal pain Musc Denies abnormal gait, Denies muscle cramps and Denies radiating pain into limb Skin/Breast Denies skin ulcer and Denies wounds Neuro Reports Normal hearing present and Denies abnormal gait Psych Reports no additional complaints Physical Exam Const General: cooperative, healthy appearing and comfortable Orientation/consciousness: oriented to person, oriented to place and oriented to time HEENT Head: Yes normal to inspection Neck Neck: Yes normal visual inspection Carotids: no bruits Chest Chest palpation & inspection: normal inspection of the chest Resp Effort & Inspection: normal respiratory effort and able to speak in complete sentences Auscultation: clear to auscultation bilaterally, no crackles, no rales, no rhonchi and no wheezes Cardio Rate: regular rate Rhythm: regular rhythm Heart sounds: S1 normal heart sound present and S2 normal heart sound present Bruits: no carotid bruits Peripheral pulses: Peripheral pulses 2+ throughout GI Inspection: Yes normal to inspection Skin Wounds: no wounds Hair: normal Neuro General: oriented to person, oriented to place and oriented to time Cranial nerves: Yes CN's II-XII intact bilaterally and Yes Normal hearing present Cognition (Neuro): normal cognition Motor exam (neuro): 5/5 motor strength present throughout Extrem Other: venous exam: No significant superficial varicosities or spider telangiectasias, minimal edema General: No clubbing, No cyanosis and No edema Psych Appearance: grossly normal Mental Status: mental status grossly normal Speech and movement: Normal speech and movement present Results Reviewed Results Reviewed: 12/14/2024. Right carotid near occlusive, left carotid 75% stenosis Assessment & Plan Assessment & Plan (1) Carotid disease, bilateral: Code(s): I77.9 - Disorder of arteries and arterioles, unspecified Category: Medical Qualifiers: Carotid artery disease type: stenosis Qualified Code(s): I65.23 - Occlusion and stenosis of bilateral carotid arteries Plan: I discussed the patient's postoperative course following the right carotid endarterectomy. I explained that the persistent swelling in the neck is a hematoma, which resulted from increased bleeding because the patient had to remain on blood thinners for the surgery due to the high risk of stroke. I reassured the patient and the patient's son that this clot is superficial, not harmful, and will reabsorb naturally over the next month or so. We addressed the 75% stenosis in the left carotid artery and the need for a future procedure. I recommended scheduling a left carotid endarterectomy after the holidays. I clarified that for the next surgery, we will stop aspirin and Plavix beforehand to reduce the bleeding risk, but the statin will be continued. I mentioned that in a controlled situation, most patients undergoing this procedure stay overnight in the ICU and are discharged the next day, though individual outcomes can vary. Once again she will follow up with us in 1 month's time. Thank you for allowing us to assist in her care. If there are any questions or concerns please do not hesitate to contact us. Coding Level of Care Code Global (22649) Diagnoses Bilateral carotid artery stenosis I65.23 Carotid artery disease type: stenosis
== END 2025-01-15 14:24 | disposition home or self-care (01) ==
LOC: HO.HVS 11:18
PROVIDERS: PCP Internal Medicine; Visit Provider Surgery Vascular Surgery
DX: I65.23 Occlusion and stenosis of bilateral carotid arteries (principal)
CPT/HCPCS: 99024

== ENCOUNTER → 2025-01-15 11:17 | Outpatient (BNVA) | payer MEDICARE, SELFPAY | PROVIDERS: PCP Internal Medicine; Visit Provider Surgery Vascular Surgery | DX: I65.23 Occlusion and stenosis of bilateral carotid arteries (principal); Z98.890 Other specified postprocedural states; I11.9 Hypertensive heart disease without heart failure; Z79.01 Long term (current) use of anticoagulants; Z79.82 Long term (current) use of aspirin | CPT/HCPCS: 99212 ==

== ENCOUNTER 2025-02-01 13:47 | Outpatient (REF) | payer MEDICARE, SELFPAY ==
[2025-02-01 15:56] LABS: MANUAL DIFF FLAG NO
[2025-02-01 16:02] LABS: Hematocrit 37.1 % (37.0-47.0); Hemoglobin 11.1 g/dl (12.0-16.0); Imm Gran Abs Auto 0.04 X10*3/uL (0.00-0.03); Imm Gran Pct Auto 0.4 % (0.0-0.4); Lymphocytes Absolute Auto 3.3 X10*3/uL (1.2-4.9); Mean Corpuscular HGB Conc 29.9 g/dl (31.0-35.0); Mean Corpuscular Hemoglobin 24.0 pg (27.0-33.0); Mean Corpuscular Volume 80.1 fL (80.0-98.0); NRBC Abs Auto 0.000 X10*3/uL (0.0-0.012); NRBC Pct Auto 0.0 /100WBC (0.0-0.2); Platelet Count 798 X10*3/uL (160-400); Red Blood Count 4.63 X10*6/uL (4.20-5.50); White Blood Count 9.5 X10*3/uL (4.8-10.8)
[2025-02-01 20:28] LABS: Alanine Aminotransferase 11 U/L (0-31); Albumin Level 4.0 g/dL (3.5-5.0); Alkaline Phosphatase 77 U/L (39-117); Anion Gap 11 (12-20); Aspartate Amino Transferase 22 U/L (5-31); Blood Urea Nitrogen 17 mg/dL (9-16); Calcium 9.8 mg/dL (8.4-10.2); Carbon Dioxide 22 mmol/L (22-29); Chloride 111 mmol/L (96-108); Estimated Glomerular Filt Rate 49; Iron 19 mcg/dL (30-160); Percent Iron Saturation 7 % (15-50); Potassium 3.7 mmol/L (3.3-5.1); Sodium 140 mmol/L (135-145); Total Iron Binding Capacity 282 mcg/dL (228-428); Total Protein 6.9 g/dL (6.5-8.0); Unsaturated Iron Binding 263 ug/dL
== END 2025-02-01 13:48 | disposition home or self-care (01) ==
LOC: HO.WFDLDS 13:47
PROVIDERS: PCP Internal Medicine; Visit Provider Internal Medicine
DX: Z09 Encounter for follow-up examination after completed treatment for conditions other than malignant neoplasm (principal); I65.23 Occlusion and stenosis of bilateral carotid arteries; D64.9 Anemia, unspecified; E87.5 Hyperkalemia
CPT/HCPCS: 36415; 80053; 83540; 85025; 99212

== ENCOUNTER 2025-02-01 13:47 | Outpatient (AMB) | payer MEDICARE, SELFPAY ==
--- OUTSIDE RECORDS SUMMARY | 2023-09-12 05:30 | XMS_ITS ---
Author Organization [facility] Address [address] [facility] [place] [address] Care Team Providers Care Security Operations Manager Name Role Phone Ross Moran MD Primary Care Provider Unavaila Emerson Dailey Unavailable [phone] Allergies Allergen (clinical drug ingredient) Drug/Non Drug Allergy documented on EMR Reaction Allergy Type Onset Date Status diphenhydramine Diphenhydramine anxiety Drug Allergy Active oxycodone Oxycodone nausea Drug Allergy Active Medications Medication SIG (Take, Route, Frequency, Duration) Notes Start Date End Date Status Magnesium 300 MG 1 capsule with a roberto l Orally Once a day; Duration: 30 day(s) Not-Taking Walking Boot/Pneumatic As directed Wear Daily; Duration: Until further notice 12/27/2016 Not-Taking Work Note . . . patient must be cast immobilized and rest with minimal weight-bearing to heal for several weeks Not-Taking Gabapentin 400 MG 1 capsule Orally Onc e a day hs; Duration: 30 day(s) Not-Taking Meloxicam 5 MG Orally Once a day Not-Taking amLODIPine Besylate 2.5 MG 1 tablet Orally Once a day; Duration: 30 day(s) Active Xarelto 20 MG TAKE 1 TABLET BY EVONNE TH EVERY DAY Oral; Duration: 30 Days Active Lisinopril 5 MG 0.5 tablet Orally On ce a day; Duration: 30 day(s) Active Omeprazole 20 MG 1 capsule Orally Onc e a day; Duration: 30 day(s) Active Furosemide 8 MG/ML Orally Once a day Not-Taking Prolia Active Metoprolol Succinate ER 25 MG TAKE 1 TABLET (25 MG) ORALLY DAILY Oral; Duration: 90 Days Active Social History Tobacco Use: Social History Observation [...] Signs Height 5 ft 7 in in 09/12/2023 Weight 216 lbs 09/12/2023 BMI 33.83 kg/m2 09/12/2023 Encounters Encounter Location Date [facility] [address] [place] [address] 09/12/2023 Emerson Elliott Plan Of Treatment No Information Progress Notes * EARLTasneemDunia LDOB:[birth year] (75 yo F)Acc No.[id number]:09/12/2023 Progress Notes Patient: Dunia PERRY Provider: Thien Mcbride DPM :1950 A ge:73 Y S ex:Female Date:09/12/2023 Address:[address] [place], [place] [id number] Pcp:oRss Moran MD Subjective: * Chief Complaints: * [...] enies. C ardiovascular: Pacemaker d enies. M STEWARD/STEWARDESS SECOND CLASS d enies. W PW d enies. C [...] Children: yes, 3. Marital status: . 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 * Medications: T aking Prolia , Taking [...] 1 capsule Orally Once a day , Not- Taking/PRN Furosemide 8 MG/ML Solution Orally Once a day , Not-Taking/PRN Meloxicam 5 MG Capsule Orally Once a day , Not-Taking/PRN Walking Boot/Pneumatic As directed Wear Daily , Not-Taking/PRN Work Note . . . . patient must be cast immobilized and rest with minimal weight-bearing to heal for several weeks , Not-Taking/PRN Gabapentin 400 MG Capsule 1 capsule Orally Once a day hs , Not-Taking/PRN Magnesium 300 MG Capsule 1 capsule with a meal Orally Once a day * Allergies: D iphenhydramine: anxiety, Oxycodone: nausea. Objective: * Vitals: H t: 5 ft 7 in, Wt: 216, BMI:33.83, Shoe size: 9-9.5. Assessment: Plan: * Treatment: * Images: * The named appointment provid er may or may not be the originator of this progress note, and it is not deemed complete until electronically signed by the appointment provider. Sign off status: Pending * Provider: Thien Mcbride DPM Date: 0 09/12/2023 Generated for Yodit mullen/Sim/Perry on: 04/04/2024 03:28 PM EST
--- OUTSIDE RECORDS SUMMARY | 2024-04-09 08:15 | XMS_ITS ---
Author Organization [facility] Address [address] [place] [address] Care Team Providers Care Bricklayer Supervisor Name Role Phone CYNTHIA HERNANDEZ Primary Care Provider Simone Bennett Jr REASON FOR VISIT rectal bleed Encounters Encounter Location Date Provider Diagnosis [facility] [address] [place] [address] 04/09/2024 Simone Craig Jr Plan Of Treatment Next Appt Details Provider Name:Simone stephens Jr, 09/05/2025 01:35:00 PM, [address], [address], [place], [address], Progress Notes * SINGHSHEA RICHARDRICIA LDOB:[birth year] (75 yo F)Acc No.[id number]:04/09/2024 Progress Notes Patient: ILDA PERRY Provider: Stephen Craig MD :1950 A ge:74 Y S ex:Female Date:04/09/2024 Address:[address] [place] [address] [address], [id number] Pcp:CYNTHIA HERNANDEZ Subjective: * Chief Complaints: * R ectal bleed Billing Information: * Procedure Codes: * The named appointment provid er may or may not be the originator of this progress note, and it is not deemed complete until electronically signed by the appointment provider. Sign off status: Pending * Provider: Stephen Craig MD Date: 0 04/09/2024 Generated for Yodit mullen/Sim/Perry on: 1 04/04/2024 03:29 PM EST
--- OUTSIDE RECORDS SUMMARY | 2024-05-16 09:00 | XMS_ITS ---
Author Organization [facility] Address [address] [place] [address] Care Team Providers Care Wire Cutter Name Role Phone CYNTHIA HERNANDEZ Primary Care Provider Simone Bennett Jr [phone] REASON FOR VISIT nausea/vomiting, anorexia Encounters Encounter Location Date Provider Diagnosis [facility] [place] [address] [place], [place] [phone] 05/16/2024 Simone Craig Jr Plan Of Treatment Next Appt Details Provider Name:Simone stephens Jr, 09/05/2025 01:35:00 PM, [address], [address], [place], [address], Progress Notes * ILDA WINTERS LDOB:[birth year] (75 yo F)Acc No.[id number]:05/16/2024 EGD/MAC Patient: SHEA PERRYTYSHAWN Simental Provider: Stephen Craig MD :1950 A ge:74 Y S ex:Female Date:05/16/2024 Address:[address] [place] [address] [address], [id number] Pcp:CYNTHIA HERNANDEZ Subjective: * Chief Complaints: * N ausea/vomiting, anorexia Billing Information: * Procedure Codes: * The named appointment provid er may or may not be the originator of this progress note, and it is not deemed complete until electronically signed by the appointment provider. Sign off status: Pending * Provider: Stephen Craig MD Date: 0 05/16/2024 Generated for Yodit mullen/Sim/Perry on: 1 04/04/2024 03:29 PM EST
--- OUTSIDE RECORDS SUMMARY | 2024-05-25 05:00 | XMS_ITS ---
Author Organization [facility] Address 10 [facility] [address] [place] [address] Care Team Providers Care Asphalt Distributor Tender Name Role Phone CYNTHIA HERNANDEZ Primary Care Provider Simone Bennett Jr [phone] REASON FOR VISIT wt loss,early satiety,colitis Encounters Encounter Location Date Provider Diagnosis [facility] [place] [address] [place] [id number] 05/25/2024 Simone Craig Jr Plan Of Treatment Next Appt Details Provider Name:Simone stephens Jr, 09/05/2025 01:35:00 PM, [address] [facility], [address], [place], [address], Progress Notes * ILDA WINTERS LDOB:[birth year] (75 yo F)Acc No.[id number]:05/25/2024 EGD and COL/MAC Patient: SHEA PERRYTYSHAWN Simental Provider: Stephen Craig MD :1950 A ge:74 Y S ex:Female Date:05/25/2024 Address:[address] [place] [address] [address], [id number] Pcp:CYNTHIA HERNANDEZ Subjective: * Chief Complaints: * W t loss,early satiety,colitis * The named appointment provid er may or may not be the originator of this progress note, and it is not deemed complete until electronically signed by the appointment provider. Sign off status: Pending * Provider: Stephen Craig MD Date: 0 05/25/2024 Generated for Yodit mullen/Sim/Perry on: 1 04/04/2024 03:28 PM EST
--- NOTE | 2025-02-01 13:56 | MHC.PC.OV ---
Vital Signs 02/01/25 13:57 02/01/25 14:09 Height 5 ft 6 in Weight 149 lb 6 oz BMI 24.1 BP 164/90 H 142/94 H Blood Pressure Location Rt brachial Rt brachial Position Sitting Sitting Respiration 16 Pulse 68 Pulse Source Pulse Oximeter Temp 98.5 F Temp Source Oral Pulse Oximetry (%) 98 Oxygen Delivery Method Room Air Intake Visit Reasons: D/C on 01/11 from [facility] - see notes Intake Note: Hospital follow up Agricultural Specialist Required: No Allergies diphenhydramine Adverse Reaction (Verified 02/01/25 13:57) Anxiety Tobacco use date assessed: 02/01/25 Fall risk assessment: 2 + Falls in past year (several from strokes) Last assessed Fall Risk: 02/01/25 Dental Screening Dental Screen Date: 10/25/24 HPI HPI Comments History of Present Illness Details The patient is a 74 year old female with a past medical history of p. afib, htn, hyperlipidemia, OA s/p RTK, polycythemia vera, GERD anxiety, insomnia presenting for hospital follow up Discharged from [facility] rehab after 01/01 to 01/11 admit. Participated in OT/PT. Continued asa, xarelto, lipitor. AN on CKD Cr on discharge 1.3 (from 1.62). Continued on toprol. Off lisinopril, off norvasc. Hyperkalemia received one dose kayexalate. Down to once a week home rehab-[facility]. Likely left CEA in Feb. Needs repeat labs. BP is high today, home readings systolic 122-142/74-90 Hospitalized at [facility] --Admitted 12/20-12/24/2024 presented with left upper extremity weakness, admitted with TIA in the setting of severe bilateral internal carotid artery stenosis, underwent right carotid endarterectomy on 12/20, patient with bleeding from site requiring hold on xarelto and ASA. Downgraded from the ICU on 12/21. To resume AC 12/28 --However, Readmitted 12/26-12/30 Feeling unwell then unresponsive and brought to ED. Imaging revealed multiple acute infarctions, heterogenous abnormality in right carotid compartment causing mass effect on adjacent structures. Thought to be related to a low flow state. Amlodipine was DC, BP target >130. Monitored then cleared by vascular, neurology for rehab Recent left cataract. She has a dilated eye exam scheduled Oct GI: Following with Dr Craig. Doing better. Appetite has come back. She has been able to gain some weight. Follows with GI. Was following with surgery. Recent CT abd/pelvis without fistula evidence. Hospitalized 05/09/2024-05/21/2024 at [facility]. She presenting with abdominal pain, N/V/weakness and weight loss. Hospitalized for acute recurrent diverticulitis with colovesicular fistula and urinary tract infection complicated by moderate protein calorie malnutrition and weight loss. Was treated with IV Zosyn. Cultures were negative. Was seen by Gastroenterology and General surgery and Urology. Conversation was had regarding trial of conservative care with antibiotics versus surgical approach. EGD showed diodenal ulcers and started on IV PPI then switched to PO Omeprazole CV: follows with cardiology. On toprol, xarelto. She underwent a myocardial perfusion imaging prior to needing a knee surgery in July 2023 which was within normal limits. Denies chest pain, exertional dyspnea. Recent right CEA, upcoming left Heme/Onc: thrombocytosis, polycythemia vera, was on hydroxyurea therapy previously but monitoring labs for the time being. She will schedule with heme/onc Neuro: Patient was experiencing neuralgia, neuritis from her left chest through the torso upper extremities and her lower extremities. She notes some interval improvement. 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 CT abd with DDD lumbar spine Insomnia stable on prn temazepam ROS see HPI PHYSICAL EXAM: GENERAL: Alert and oriented x 3. NAD EYES: EOMI. Anicteric. HENT: Moist mucous membranes. No scleral icterus. No cervical lymphadenopathy. LUNGS: Clear to auscultation bilaterally. CARDIOVASCULAR: Regular rate and rhythm. ABDOMEN: Soft, non-tender +bs EXTREMITIES: No edema. Non-tender. SKIN: No rashes or lesions. Warm. NEUROLOGIC: No focal neurological deficits. CN II-XII grossly intact PSYCHIATRIC: Cooperative. Appropriate mood and affect [facility] Medical History Carotid disease, bilateral FH: carotid endarterectomy (12/20/24) Fall Postop carotid endarterectomy surveillance, encounter for Carotid stenosis, right Acute coccygeal pain Acute chest wall pain Carotid stenosis, bilateral Stroke Adult failure to thrive Polycythemia vera Postoperative nausea Osteopenia Hx of Lyme disease GERD (gastroesophageal reflux disease) Paroxysmal atrial fibrillation HTN (hypertension) Persistent atrial fibrillation Surgical History History of total right knee replacement History of esophagogastroduodenoscopy (EGD) Hx of section Hx of hysterectomy Hx of colonoscopy (~08/13/21) Hx of appendectomy Family History Father Cancer Stroke Mother Diabetes Social History Household Members: None Housing: House Are you a primary laboratory animal care veterinarian to a significant other at home: Yes ( with Alzheimer's and Parkinson's) Do you presently have visiting nurse or other home services: Yes Comment: medicated Patient Tobacco Use Status: Never used Tobacco e-Cigarette/Vaping Use: Never Used Second Hand Smoke Exposure: No Advance Directives Date on File: 03/11/21 service: No Current occupational status: retired Current occupational exposures/hazards: No Cognitive needs: Yes (walker) Hearing needs: No Vision needs: Yes (Rx glasses) Questionnaire Thrive Questionnaire Date Thrive assessed: 10/12/24 I am a: Patient What is your living situation today?: I have a steady place to live Within the past 12 months, did the food you bought not last and you didn't have the money to get more?: Never true Within the past 12 months, did you worry whether your food would run out before you got money to buy more?: Never true Do you have trouble paying for medicines?: No Do you have trouble getting transportation to medical appointments?: No Do you have trouble paying your heating and electricity bill?: No Do you have trouble taking care of your child, family member or friend?: No Do you have trouble with day-to-day activities such as bathing, preparing meals, shopping, managing finances, etc.?: No Are you currently unemployed and looking for a job?: No Are you interested in more education?: No Currently or been in a relationship where the following occur: No concerns reported THRIVE Score: 0 AUDIT C Alcohol Use Questionnaire (AUDIT-C) 1. How often do you have a drink containing alcohol?: Monthly or less 2. How many drinks containing alcohol do you have on a typical day when you are drinking?: 1 or 2 3. How often do you have six or more drinks on one occasion?: Never Total Score: 1 KALANI-7 AMB Questionnaire KALANI-7 Date KALANI - 7 assessed: 08/03/24 Source: Developed by Drs. Hari Knight, Evelyn Ramirez, Best Blackwell and colleagues, with an educational carol from [employer]. Physical exam (Primary Care) Vital Signs: Last Vital Signs Temp 98.5 F 02/01/25 13:57 Pulse 68 02/01/25 13:57 Resp 16 02/01/25 13:57 BP 142/94 H 02/01/25 14:09 Pulse Ox 98 02/01/25 13:57 Oxygen Delivery Method Room Air 02/01/25 13:57 BMI result Body Mass Index 24.1 Tobacco/Smoking Status: Tobacco use Status Tobacco use date assessed 02/01/25 02/01/25 14:07 Patient Tobacco Use Status Never used Tobacco 02/01/25 13:59 e-Cigarette/Vaping Use Never Used 02/01/25 13:59 Thrive Assessment: Date of Thrive Assessment Date Thrive assessed 10/12/24 02/01/25 13:59 Currently or been in a relationship where the following occur: No concerns reported Coding Level of Care Code Est Pt Level 5 (81441) Diagnoses Hospital discharge follow-up Z09 Bilateral carotid artery stenosis I65.23 Carotid artery disease type: stenosis Anemia, unspecified type D64.9 Anemia type: unspecified type Time Spent (min) 52 Comment reviewing hospital DC x 2, rehab and clinical patient time Assessment & Plan Assessment & Plan (1) Hospital discharge follow-up: Code(s): Z09 - Encounter for follow-up examination after completed treatment for conditions other than malignant neoplasm Category: Medical (2) Carotid disease, bilateral: Code(s): I77.9 - Disorder of arteries and arterioles, unspecified Category: Medical Qualifiers: Carotid artery disease type: stenosis Qualified Code(s): I65.23 - Occlusion and stenosis of bilateral carotid arteries (3) Anemia: Code(s): D64.9 - Anemia, unspecified Category: Medical Qualifiers: Anemia type: unspecified type Qualified Code(s): D64.9 - Anemia, unspecified Plan 75 year old for hospital followx2 and discharge rehab Hospital course and interval history reviewed Patient is feeling well She continue home rehab. Meds reconciled. May need to restart low dose CARLOS. Labs today Carotid disease-following closely with vascular She has follow up with cardiology scheduled Orders: Orders Complete Blood Count Auto Diff Today D64.9 - Anemia, unspecified, E87.5 - Hyperkalemia IRON PROFILE Today D64.9 - Anemia, unspecified, E87.5 - Hyperkalemia Comprehensive Met. Panel Today D64.9 - Anemia, unspecified, E87.5 - Hyperkalemia
[2025-02-01 13:57] VITALS: BP 164/90; PULSE 68; RESP 16; TEMP 36.9; O2SAT 98; BMI 24.1
[2025-02-01 14:09] VITALS: BP 142/94
--- OUTSIDE RECORDS SUMMARY | 2025-02-01 15:28 | XMS_ITS | Patient Health Record ---
[facility] Address [address] [place] [address] Care Team Providers Care Butcher Chicken And Fish Name Role Phone Ross Moran MD Primary Care Provider Emerson Calvin Unavailable [phone] Allergies Allergen (clinical drug ingredient) Drug/Non Drug [...] Problem Acquired hammer toe of right foot (4970541749168 105) Other hammer toe(s) (acquired), right foot (M20.41) Active confirmed Problem Acquired hammer toe of left foot ([id number] 103) Other hammer toe(s) (acquired), left foot (M20.42) Active confirmed Plan Of Treatment Pending Test Test Name Order Date X ray : Foot, left 2V 11/06/2014 X ray : Foot, left 3V 12/27/2016 X ray : Foot, left 3V 07/05/2019 X ray : Foot, left 3V 08/09/2019 X ray : Foot, left 3V 09/19/2019 X ray : Foot, right 3V 12/27/2016 [id number] NAIL, 6 OR MORE 12/27/2016 [id number] Plate 04/29/2011 [id number] 06/10/2011 [id number] 07/01/2011 [id number] 08/02/2011 [id number] SKIN/TISSUE 08/02/2011 [id number] SKIN/TISSUE 07/01/2011 [id number]- Unna Boot 07/05/2019 Insurance Providers Payer Name Payer Address Payer Phone Subscriber Number Group Number Insured Name Patient Relationship to Insured Coverage Start Date Coverage End Date Medicare National Govt Sv[employer] [address] [place] [address] [id number] Dunia Elliott Self - patient is the insured [employer] Blue [employer] [address] [place] [address] [id number] Dunia Elliott Self - patient is [...]
--- OUTSIDE RECORDS SUMMARY | 2025-02-01 15:28 | XMS_ITS | Encounter Summary ---
Author Organization [facility] Address [address] [place] [address] Phone Care Team Providers Care Php Architect Name Role Phone Ross Moran MD Primary Care Provider Wil Banks MD Unavailable Hari Stevens MD, EdM Unavailable [phone] Kellie Croft RN Unavailable Kathryn [email or web address] Lynda Mora PA-C Unavailable [phone] Larissa Perez MD Primary Care Provider [phone] Encounter Details Date Type Department Care Team (Late st Contact Info) Description 07/19/2023 Procedure Pass BWF Periop 6th floor [address] [place] [address] Social History Tobacco Use Types Packs/Day Years [...] Care Team (Late st Contact Info) Description 04/12/2025 2:15 PM EST Office Visit [facility] [address] [place] [address] Wil Banks MD [address] [place] [phone] [email or web address] documented as of this encounter Visit Diagnoses Not on filedocumented in this encounter Care Teams Php Architect Relationship Specialty Start Date End Date Ross Moran MD [address] [place] [address] [place] [address] PCP - General Internal Medicine 05/16/23 07/12/24 Larissa Perez MD [address] [place] [address] [place] [address] PCP - General Internal Medicine 07/13/24 Wil Banks MD [address] [place] [address] [email or web address] Referring Physician Orthopedic Surgery 07/13/23 Hari Stevens MD, EdM [address] [place] [id number] [email or web address] Primary Oncologist Hematology 07/13/23 Kellie Croft RN [address] [place] [address] [email or web address] Registered Nurse 07/13/23 Lynda Mora PA-C [address] [place] [address] [email or web address] Physician Asset Protection Detective Physician Asset Protection Detective 07/13/23 documented as of this encounter Additional Source Comments The information contained in this document represents components of the legal health record. It is not the complete legal health record.[facility]
--- OUTSIDE RECORDS SUMMARY | 2025-02-01 15:29 | XMS_ITS | Encounter Summary ---
Author Organization [facility] Address [address] [place] [address] Phone Care Team Providers Care Navy Airspace Officer Name Role Phone Ross Moran MD Primary Care Provider Wil Banks MD Unavailable Hari Stevens MD, EdM Unavailable Kellie Croft RN Unavailable Kathryn [email or web address] Lynda Mora PA-C Unavailable [phone] Larissa Perez MD Primary Care Provider [phone] Encounter Details Date Type Department Care Team (Late st Contact Info) Description 01/17/2024 Transcribe Orders [facility] Phleb Main [address] [place] [address] Hari Stevens MD, EdM [facility] [address] [address] [email or web address] Status post right knee replacement (Primary Dx); [...] Description 04/12/2025 2:15 PM EST Office Visit [facility] [address] [place] [address] Wil Banks MD [address] [place] [address] [email or web address] documented as of this encounter Results * (ABNORMAL) Comprehensive metabolic panel (01/17/2024 3:03 PM EST) SODIUM 133 133 - 146 mmol/L [facility] POTASSIUM 3.0(L) 3.3 - 5.1 mmol/L [facility] CHLORIDE 94(L) 96 - 108 mmol/L [facility] CO2 21 21 - 35 mmol/L [facility] BUN 17 6 - 19 mg/dL [facility] CREATININE 1.10 0.5 - 1.5 mg/dL [facility] GLUCOSE 131(H) 70 - 99 mg/dL [facility] ALBUMIN 3.8(L) 3.9 - 4.8 g/dL [facility] TOTAL PROTEIN 7.5 6.5 - 8.0 g/dL [facility] CALCIUM 10.1 8.4 - 10.3 mg/dL [facility] ALKALINE PHOSPHATASE 78 39 - 117 U/L [facility] TOTAL BILIRUBIN 1.2 0.0 - 1.2 mg/dL [facility] AST 17 0 - 37 U/L [facility] ALT 9 0 - 40 U/L [facility] GLOBULIN 3.7 1 - 4.8 g/dL [facility] EGFR 54(L) >59 mL/min/1.7 3m2 [facility] Comment:Estimated glomerular filtration rate calculated using the CKD-EPI refit equation. ANION GAP 21(H) 10 - 20 mmol/L [facility] Blood 01/17/2024 3:03 PM EST 01/17/2024 3:06 PM EST us Hari Stevens MD, EdM LAB BLOOD BKR ORDERABLES Final Result [address] [address] documented in this encounter Visit Diagnoses Diagnosis Status post right knee replacement- Primary Primary osteoarthritis of right knee Essential thrombocythemia Generalized pain of knee region documented in this encounter Care Teams Navy Airspace Officer Relationship Specialty Start Date End Date Ross Moran MD [address] [place] [address] [place] [address] PCP - General Internal Medicine 05/16/23 07/12/24 Larissa Perez MD [address] [place] [address] [place] [address] PCP - General Internal Medicine 07/13/24 Wil Banks MD [address] [place] [phone] [email or web address] Referring Physician Orthopedic Surgery 07/13/23 Hari Stevens MD, EdM [address] [place] [address] [phone] [email or web address] Primary Oncologist Hematology 07/13/23 Kellie Croft, RN [address] [place] [address] [email or web address] Registered Nurse 07/13/23 Lynda Mora PAKatiC [address] [place] [address] [email or web address] Physician Log Pond Worker Physician Log Pond Worker 07/13/23 documented as of this encounter Additional Source Comments The information contained in this document represents components of the legal health record. It is not the complete legal health record.[facility]
--- OUTSIDE RECORDS SUMMARY | 2025-02-01 15:29 | XMS_ITS | Encounter Summary ---
Author Organization [facility] Address [address] [place] [address] Phone Care Team Providers Care Call Centre Supervisor Name Role Phone Ross Moran MD Primary Care Provider Wil Banks MD Unavailable Hari Stevens MD, EdM Unavailable [phone] Kellie Croft RN Unavailable Kathryn [email or web address] Lynda Mora PA-C Unavailable [phone] Larissa Perez MD Primary Care Provider [phone] Reason for Visit * Reason Onset Date Comments Dr. Stevens 01/16/2024 Encounter Details Date Type Department Care Team ([facility] st Contact Info) Description 01/16/2024 Telephone [facility] [place] [facility] [address] 2nd [place] [address] Cherelle Aquino [address] [place] [address] [email or web address] Dr. Stevens Social History Tobacco Use [...] Visit [facility] [address] [place] [address] Wil Banks MD [address] [place] [address] [email or web address]. [facility] documented as of this encounter Visit Diagnoses Not on filedocumented in this encounter Care Teams Call Centre Supervisor Relationship Specialty Start Date End Date Ross Moran MD [address] [place] [address] [place] [address] PCP - General Internal Medicine 05/16/23 07/12/24 Larissa Perez MD [address] [place] [address] [place] [address] PCP - General Internal Medicine 07/13/24 Wil Banks MD [address] [place] [address] YOHANA@[email or web address] Referring Physician Orthopedic Surgery 07/13/23 Hari Stevens MD, EdM [address] [place] [phone] [email or web address] Primary Oncologist Hematology 07/13/23 Kellie Croft, RN [address] [place] [address] [email or web address] Registered Nurse 07/13/23 Lynda Mora PA-C [address] [place] [address] [email or web address] Physician Associate Director Of Nursing Physician Associate Director Of Nursing 07/13/23 documented as of this encounter Additional Source Comments The information contained in this document represents components of the legal health record. It is not the complete legal health record.[facility]
--- OUTSIDE RECORDS SUMMARY | 2025-02-01 15:29 | XMS_ITS | Patient Health Record ---
Author Organization [facility] Address [address] [place] [address] Care Team Providers Care Wireline Operator Name Role Phone MARY, CYNTHIA Primary Care Provider Simone Bennett Jr Allergies Allergen (clinical drug ingredient) Drug/Non Drug Allergy documented on EMR Reaction Allergy Type Onset Date Status diphenhydramine Benadryl anxiety Drug Allergy A ctive Results Component Value Reference Range Notes Pathology Reviewed date:05/24/2024 09:42:51 AM Interpretation: Performing Lab:[facility], [address] [place] [address] Notes/Report: Reason For Referral No Information Medications Medication SIG (Take, Route, Frequency, Duration) Notes Start Date End Date Status Xarelto 20 MG Tablet TAKE 1 TABLET BY MOUTH EVERY DAY Oral; Duration: 30 Active Hydroxyurea 500 MG Capsule TAKE 1 CAPSULE DAILY Oral; Duration: 90 Days Active Vitamin D Not-Taking /PRN amLODIPine Besylate 5 MG Tablet TAKE 1 TABLET BY MOUTH EVERY DAY Oral; Duration: 30 Not-Taking/PRN Folic Acid 1 MG Tablet 1 tablet Orally O nce a day Active Linzess 145 MCG Capsule [address] 30 minutes before the first meal of the day on an empty stomach Orally Once a day Active Lisinopril 40 MG Tablet TAKE 1 TABLET BY MOUTH EVERY DAY Oral; Duration: 30 Active Omeprazole 20 MG Capsule Delayed Release 1 capsule Orally Once a day; Duration: 30 day(s) Active Metoprolol Succinate ER 25 MG Tablet Extended Release 24 Hour Oral; Duration: 90 Active Immunizations Vaccine Route Administration Date Status Comme nts Influenza Unknown 10/15/2017 Administered Influenza Unknown 02/14/2021 Administered Influenza Unknown 12/06/2023 Administered Social History Social History Drugs/Alcohol: Social Info Question Answer Notes Alcohol Screen Did you have a drink containing alcohol in the past year? No Points 0 Interpretation Negative Additional Details Category Social Info Options Details Miscellaneous: Marital status: Problems Problem Type SNOMED Code ICD Code Onset Dates Problem Status W/U Status Risk Notes Problem Rectal bleeding (75752135) Rectal bleeding (K62.5) Active confirmed Problem Gastrointestinal tract problem (140940389) Abn findings-GI tract (R93.3) Active confirmed Problem Gastroesophageal reflux disease (224441859) Gastroesophageal reflux disease, unspecified whether esophagitis present [...] N/A Encounters Encounter Location Date Provider Diagnosis [facility] [address] [place] [id number] 05/16/[address] [facility] [address] [place] [address] 04/23/2024 Simone Craig Jr Weight loss R63.4 ; Colitis K52.9 and Early satiety R68.81 [facility] [address] [place] [address] 08/30/2024 Simone Craig Jr Gastroesophageal reflux disease, unspecified whether esophagitis present K21.9 and Abn findings-GI tract R93.3 [facility] [address] [place] [address] 03/30/[address] [facility] [address] [place] [phone] 04/09/[address] [facility] [address] [place] [address], [place] [address] 04/23/[address] [facility] [address] [place], [place] [address] 05/23/[address] [facility] [address] [place], [place] [address] 05/23/[address] [facility] [address] [place], [place] [address], [place] [address] 05/24/[address] [facility] [address] [place] [address] 06/08/[address] [facility] [address] [facility] [place] [address] 07/19/[address] [facility] [address] [place], [place] [address], [place] [address] 08/30/2024 Simone Rafaabida Hubbard Assessments Encounter Date Diagnosis (ICD Code) Assessment [...] Next Appt Details Provider Name:Simone stephens , 09/05/2025 01:35:00 PM, [address] [place] [address], [address], [place], [address], Insurance Providers Payer Name Payer Address Payer Phone Subscriber Number Group Number Insured Name Patient Relationship to Insured Coverage Start Date Coverage End Date MEDICARE OF [place] [address] [place] [address] [phone] [id number] ILDA WINTERS Self - patient is the insured [employer] ATT[employer] CLAIMS [address] [place] [address] [id number] ILDA WINTERS Self - patient is the insured Medical (General) History Medical History History ICD Code hypertension GERD Colonoscopy 08/05, diverticulosis, resolv ing colitis uterine cancer Lyme disease osteopenia hx of Afib Colonoscopy 710/14, wing, fo gus area of resolving infectious colitis, ten-year followup polycythemia vera EGD 06/08, superficial small duodenal ulc ers, no H. pylori, PPI therapy Surgical History Surgery Date(Month/Year) hysterectomy section appendectomy vein ligation X 2 vaginoplasty right knee replacement Hospitalization History Reason Date(Month/Year)
--- OUTSIDE RECORDS SUMMARY | 2025-02-01 15:29 | XMS_ITS | Encounter Summary ---
Author Organization [facility] Address [address] [place] [address] Phone Care Team Providers Care Link Knitting Machine Operator Name Role Phone Ross Moran MD Primary Care Provider Wil Banks MD Unavailable Hari Stevens MD, EdM Unavailable [phone] Kellie Croft RN Unavailable [email or web address] Lynda Mora PA-C Unavailable Larissa Perez MD Primary Care Provider [phone] Encounter Details Date Type Department Care Team (Late st Contact Info) Description 06/29/2023 Transcribe Orders [facility] Specimen Processing [address] [place] [address] Ross Moran MD [address] [place] [address] [place] [address] Social History Tobacco Use Types Packs/Day Years [...] [facility] [address] [place] [address] Wil Banks MD [address] [place] [address] [email or web address]. [place] documented as of this encounter Visit Diagnoses Not on filedocumented in this encounter Care Teams Link Knitting Machine Operator Relationship Specialty Start Date End Date Ross Moran MD [address] [place] [address] [place] [address] PCP - General Internal Medicine 05/16/23 07/12/24 Larissa Perez MD [address] [place] [address] [place] [address] PCP - General Internal Medicine 07/13/24 Wil Banks MD [address] [place] [id number] [email or web address] Referring Physician Orthopedic Surgery 07/13/23 Hari Stevens MD, EdM [address] [place] [address] [email or web address] Primary Oncologist Hematology 07/13/23 Kellie Croft RN [address] [place] [address] [email or web address] Registered Nurse 07/13/23 Lynda Mora PA-C [address] [place] [address] [email or web address] Physician Resident Services Supervisor Physician Resident Services Supervisor 07/13/23 documented as of this encounter Additional Source Comments The information contained in this document represents components of the legal health record. It is not the complete legal health record.[facility]
--- OUTSIDE RECORDS SUMMARY | 2025-02-01 15:29 | XMS_ITS | Encounter Summary ---
Author Organization [facility] Address [address] [place] [address] Phone Care Team Providers Care Quartz Miner Name Role Phone Ross Moran MD Primary Care Provider Wil Banks MD Unavailable Hari Stevens MD, EdM Unavailable [phone] Kellie Croft RN Unavailable [email or web address] Lynda Mora PA-C Unavailable [phone] Larissa Perez MD Primary Care Provider [phone] Encounter Details Date Type Department Care Team (Late st Contact Info) Description 12/08/2023 Procedure Pass BWF Periop 6th floor [address] [place] [address] Social History Tobacco Use Types Packs/Day Years [...] Visit [facility] [address] [place] [address] Wil Banks MD [address] [place] [address] [email or web address]. [email or web address] documented as of this encounter Visit Diagnoses Not on filedocumented in this encounter Care Teams Quartz Miner Relationship Specialty Start Date End Date Ross Moran MD [address] [place] [address] [place] [address] PCP - General Internal Medicine 05/16/23 07/12/24 Larissa Perez MD [address] [place] [address] [place] [id number] PCP - General Internal Medicine 07/13/24 Wil Banks MD [address] [place] [address] [email or web address] Referring Physician Orthopedic Surgery 07/13/23 Hari Stevens MD, EdM [address] [place] [address] [address] [email or web address] Primary Oncologist Hematology 07/13/23 Kellie Croft, RN [address] [place] [address] [email or web address] Registered Nurse 07/13/23 Lynda Mora PAKatiC [address] [place] [address] [email or web address] Physician Welding Process Engineer Physician Welding Process Engineer 07/13/23 documented as of this encounter Additional Source Comments The information contained in this document represents components of the legal health record. It is not the complete legal health record.[facility]
== END 2025-02-01 14:32 | disposition home or self-care (01) ==
LOC: HO.HMCFM 13:48
PROVIDERS: PCP Internal Medicine; Visit Provider Internal Medicine
DX: Z09 Encounter for follow-up examination after completed treatment for conditions other than malignant neoplasm (principal); I65.23 Occlusion and stenosis of bilateral carotid arteries; D64.9 Anemia, unspecified